=== PATIENT | male | born 1945 | race Caucasian/White ===

== ENCOUNTER 2019-06-29 16:16 | Outpatient (CLI) | payer MEDICARE, SELFPAY ==
--- NOTE | ~2019-06-29 | XR_ITS ---
EXAMINATION: XR abdomen/kub 1V EXAM DATE: 06/29/2019 16:44 INDICATION: Flank pain. TECHNIQUE: Frontal projection of the upper abdomen, frontal projection lower abdomen/pelvis for inter pretation. Comparison is made to prior examination from 10/07/2018. FINDINGS: Previously seen right nephrolithiasis no longer present. No suspicious soft tissue calcifi cations identified. Laparotomy wires. Expected amount of colonic stool, no obstruction. Chronic right hip avascular necrosis. IMPRESSION: No suspicious calcifications. Chronic right hip avascular necrosis. Reviewed, dictated and finalized at location A. IMPRESSION: No suspicious calcifications. Chronic right hip avascular necrosis .
--- NOTE | ~2019-06-29 | CT_ITS ---
EXAMINATION: CT abdomen pelvis wo con EXAM DATE: 06/29/2019 16:43 INDICATION: Right flank pain. Kidney stone. TECHNIQUE: Spiral CT of the abdomen and pelvis was performed without contrast. Axial, coronal and sag ittal images were reviewed. The dose-length product (DLP) for this examination was 1020.76 mGy-cm. The exposure was tailored according to patient size (auto mA exposure control), and iterative reconst ruction (ASIR) was used as additional dose reduction technique. Comparison is made to prior examinati on from 04/01/2018. FINDINGS: There is no nephrolithiasis or hydronephrosis, previously seen right nephrolithiasis has re solved. The prostate is unremarkable. The bladder is unremarkable. The liver, spleen, adrenal gla nds and pancreas are unremarkable. The gallbladder is contracted but otherwise unremarkable. There is no retroperitoneal or pelvic lymphadenopathy. There is mild scattered arteriosclerotic disease. Small right inguinal fat-containing hernia. Laparotomy wires. The appendix is not positively visualized. There is no pericecal inflammatory change to suggest appe ndicitis. The stomach and small bowel are unremarkable. There is expected amount of colonic stool. No free intraperitoneal gas. The heart is normal in size. There are no pericardial or pleural e ffusions. Again there are several nodules at the lung bases measuring up to 5 mm, likely postinfecti ous. There is mild emphysema. There is partial collapse of the right femoral head, most likely seque la from chronic avascular necrosis. This is unchanged compared to prior study. IMPRESSION: 1. No nephrolithiasis, hydronephrosis or acute intra-abdominal findings. 2. Chronic right hip avascular necrosis. 3. Small right inguinal hernia. Reviewed, dictated and finalized at location A.
== END 2019-06-29 16:17 | disposition home or self-care (01) ==
PROVIDERS: PCP Family Medicine; Visit Provider Urology
DX: M87.851 Other osteonecrosis, right femur (principal); K40.90 Unilateral inguinal hernia, without obstruction or gangrene, not specified as recurrent
CPT/HCPCS: 74018; 74176

== ENCOUNTER 2020-05-22 09:04 | Outpatient (CLI) | payer MEDICARE, SELFPAY ==
--- NOTE | 2020-06-01 13:06 | WPDHOMESLEEP ---
Sleep Study - Home Unattended Ordering Provider: Mohit aKt MD Interpreting Provider: Katey Mcintosh MD Home Sleep Study Type: Apnea Link Air Height: 1.88 m Weight: 134.717 kg Body Mass Index: 38.1 Neck Circumference (inches): 17.5 Reason for Sleep Study Patient does not indicate that he has a problem. Sleep History Naif Hale is a 74 year old man who indicates that he does not have any problems with his sleep. He answered all the questions in the negative except for that he has pain at night and waking up feeling stiff due to collapsed vertebrae. The office visit on 04/05/[address] Kat indicates that the patient has a history of DAWSON with a CPAP device that is 15 years old. A sleep study at this lab 05/18/2000 showed an apnea-hypopnea index of 54.4 with desaturation to 58%. A CPAP titration on 07/21/2020 showed an optimal pressure of 12 cm water pressure. At the time, he had a life long history of snoring with some hypersomnolence. He has gained 15 lb since the last visit with his doctor. He has a variable bedtime. He falls asleep within 10 minutes to 2 hours. He typically wakes 1 time at night. He does not have a fixed wake time. He sleeps anywhere between 8 and 12 hours. He has anxiety, depression, history of atrial fibrillation with a prior ablation now in sinus rhythm, has been treated with carvedilol and apixaban, hyperlipidemia, chronic back pain. FORMERLY [facility] Past Medical History Medical History Abnormal fasting glucose (04/03/20) BMI 37.0-37.9, adult Chronic anxiety Chronic depression Chronic serous otitis media of right ear Chronic sinusitis Eczema Hypogonadism male Vitamin B12 deficiency anemia Vitamin D deficiency, unspecified Family History Family History Mother Patient's mother is , Onset Age: 92 Father Family history of cardiovascular disease, Onset Age: 57 Social History Social History (Updated 04/05/20 @ 10:44 by Deisy Ledezma MA) Smoking status: Former smoker Tobacco type: cigarettes and cigars Alcohol intake: current Substance use: never Substance use type: does not use Medications Home Medications Medication Instructions Recorded Confirmed Type apixaban 5 mg tablet 5 mg PO BID 01/25/19 04/05/20 History carvedilol 12.5 mg tablet 12.5 mg PO Q12H 01/25/19 04/05/20 History simvastatin 40 mg tablet 40 mg PO DAILY 01/25/19 04/05/20 History cholecalciferol (vitamin D3) 125 5,000 unit PO DAILY 04/04/19 04/05/20 History mcg (5,000 unit) tablet alprazolam 0.25 mg tablet 0.25 mg PO TID PRN #90 tablet 11/29/19 04/05/20 Rx escitalopram oxalate 20 mg tablet 20 mg PO DAILY #30 tablet 11/29/19 04/05/20 Rx tramadol 50 mg tablet 50 mg PO Q6H PRN #90 tablet 02/27/20 04/05/20 Rx Sleep Procedure This test was performed using 4 channel monitoring including respiratory effort channel, snoring channel, heart rate channel, and oxygen saturation channel. This study was scored using CMS guidelines. Sleep Architecture Not applicable for home sleep test. Respiratory Analysis The recording time is 11:00 a.m. 1 minutes. The evaluation time is 10 hours 49 minutes. The apnea-hypopnea index is 38. He had 331 apneas. He had 305 obstructive apneas, 92% of the total, 12 central apneas, 4% of the total and 14 mixed apneas, 4% of the total. He had 55 hypopneas. He had no evidence of Erasto-Lyons respirations. his pulse oximeter came office finger during the night however there was enough data from the nasal transducer that the results are adequate to interpret. Oximetry Data The oxygen desaturation index is 28. Lowest desaturation is 80%. Mean saturation is below average, 90%. He had 126 desaturations and spent 75 minutes or 28% of the study below 88% saturation. Snoring Profile Snoring was significant with 2742 episodes. Cardiac Pr
[2020-06-01 13:21] VITALS: BMI 38.1
== END 2020-05-22 09:05 | disposition home or self-care (01) ==
LOC: ANHCSM 09:05
PROVIDERS: PCP Family Medicine; Visit Provider Family Medicine
DX: G47.33 Obstructive sleep apnea (adult) (pediatric) (principal)
CPT/HCPCS: 95806

== ENCOUNTER → 2020-06-19 09:48 | Outpatient (CLI) | payer MEDICARE, SELFPAY ==
--- NOTE | ~2020-06-19 | MR_ITS ---
EXAMINATION: MR lumbar spine wo con DATE: 06/19/2020 10:30 INDICATION: Low back pain. Lumbar radiculopathy. TECHNIQUE: Magnetic resonance imaging (MRI) of the lumbar spine was performed without intravenous con trast. Sequences included sagittal T2-weighted FSE, sagittal T2-weighted FS FSE, sagittal T1-weighted FSE, and axial T2-weighted FSE. COMPARISON: Lumbar spine MRI 12/04/2018 FINDINGS: There is 12 degrees dextroscoliosis of thoracic spine. There is mild chronic anterior wedgi ng of T12 and L1 vertebral bodies. There is moderately decreased disc height at L1-L2 and L4-L5 with endplate remodeling. The distal spinal cord signal intensity is normal. The conus medullaris is at L1 . The following disc levels are specifically discussed: L1-L2: The disc is bulging and has an annular fissure. There is moderate right and mild left facet daron int osteoarthritis. There is mild bilateral neural foraminal stenosis. There is mild central canal st enosis. L2-L3: There is a right foraminal protrusion. There is moderate bilateral facet joint osteoarthritis. There is mild right neural foraminal stenosis. There is no central canal stenosis. L3-L4: The disc is bulging. There is severe right and moderate left facet joint osteoarthritis. There is mild bilateral neural foraminal stenosis. There is no central canal stenosis. L4-L5: The disc is bulging and has an annular fissure. There is severe right and moderate left facet joint osteoarthritis. There is moderate bilateral neural foraminal stenosis. There is mild central ca nal stenosis. L5-S1: The disc is bulging. There is severe bilateral facet joint osteoarthritis. There is mild bilat eral neural foraminal stenosis. There is mild central canal stenosis. IMPRESSION: 1. Moderate lumbar spondylosis, stable from 12/04/2018. Reviewed, dictated and finalized at location A.
== END ==
PROVIDERS: Visit Provider Nurse Practitioner Family
DX: M54.16 Radiculopathy, lumbar region (principal); M47.816 Spondylosis without myelopathy or radiculopathy, lumbar region
CPT/HCPCS: 72148

== ENCOUNTER 2020-08-15 12:24 | Observation (INO) | payer MEDICARE, SELFPAY ==
[2020-08-15] VITALS (26 sets, daily range): BP systolic 115–141; BP diastolic 64–102; PULSE 82–148; RESP 12–22; TEMP 36.2–36.8; O2SAT 92–99
--- NOTE | ~2020-08-15 | XR_ITS ---
EXAMINATION: XR chest 1V portable INDICATION: Chest pain and tachycardia TECHNIQUE: Portable AP chest at 1305 hours COMPARISON: 09/10/2015 FINDINGS: There are minimal opacities of the lung bases. No pleural effusion or pneumothorax is ident ified. The cardiomediastinal silhouette is normal. The visualized osseous structures are unremarkable . IMPRESSION: 1. Patchy opacities of the lung bases, consistent with atelectasis versus pneumonia versus pulmonary edema. Reviewed, dictated and finalized at location A. IMPRESSION: 1. Patchy opacities of the lung bases, consistent with atelectasis versus pneum onia versus pulmonary edema.
--- NOTE | 2020-08-15 12:38 | ECG_ITS ---
Measurements Intervals [place] Rate: 147 P: HI: 0 QRS: -11 QRSD: 111 T: 56 QT: 307 QTc: 480 Interpretive Statements ATRIAL FLUTTER/TACHYCARDIA WITH RAPID VENTRICULAR RESPONSE INTRAVENTRICULAR CONDUCTION DELAY BORDERLINE R WAVE PROGRESSION, ANTERIOR LEADS ABNORMAL ECG Electronically Signed On 08-15-2020 13:06:19 CDT by Joss Cast D.O.
[2020-08-15 12:55] LABS: Basophils Percent Auto 0.5 % (0.2-1.2); Eosinophils Absolute Auto 0.2 K/mm3 (0-0.3); Eosinophils Percent Auto 2.3 % (0-4.4); Hematocrit 48.3 % (42.0-52.0); Hemoglobin 15.9 g/dL (14.0-18.0); Immature Granulocyte Absolute 0.01 K/mm3 (0.00-0.031); Immature Granulocyte Percent A 0.1 % (0-0.5); Lymphocytes Absolute Auto 3.15 K/mm3 (0.9-3.2); Lymphocytes Percent Auto 38.5 % (18.3-44.2); Mean Corpuscular HGB Conc 32.9 g/dl (32-36); Mean Corpuscular Hemoglobin 32.2 pg (26-34); Mean Corpuscular Volume 97.8 fl (80-100); Mean Platelet Volume 9.7 fl (7.4-10.4); Monocytes Absolute Auto 0.6 K/mm3 (0.1-0.6); Monocytes Percent Auto 7.7 % (2.6-8.5); Neutrophils Absolute Auto 4.2 K/mm3 (1.3-6.7); Neutrophils Percent Auto 50.9 % (45.5-73.1); Platelet Count Result 183 k/mm3 (150-375); Red Blood Count 4.94 M/mm3 (4.6-6.20); Red Cell Distribution Width 13.3 % (11.5-14.5); White Blood Count 8.2 K/mm3 (4.5-10.0)
[2020-08-15] MEDS: dilTIAZem HCl INJ 25 MG/5 ML VIAL 10 MG IV PUSH (12:57)
--- NOTE | 2020-08-15 13:01 | ED.ARRPALP ---
HPI - Arrhythmia/Palpitations General Chief Complaint: Arrhythmia/Palpitations Stated Complaint: irregular heart beat x 1 month Time Seen by Provider: 08/15/20 12:45 Source: RN notes reviewed History of Present Illness HPI narrative: Patient presents to emergency department from home for heart racing. Patient states he has history of atrial fibrillation with an ablation 5 years ago with no problems with arrhythmia since that time states over the past month he has felt like his heart has been racing and progressively getting to the point where it made him more fatigued and tired he states it never seems to cease and always feels like it is racing states he is on Eliquis which he has been taking and is followed by Dr. Shah he denies any fevers or chills, chest pain, shortness of breath or any other symptoms Related Data Home Medications Medication Instructions Recorded Confirmed apixaban 5 mg tablet 5 mg PO BID 01/25/19 04/05/20 carvedilol 12.5 mg tablet 12.5 mg PO Q12H 01/25/19 04/05/20 simvastatin 40 mg tablet 40 mg PO DAILY 01/25/19 04/05/20 cholecalciferol (vitamin D3) 125 5,000 unit PO DAILY 04/04/19 04/05/20 mcg (5,000 unit) tablet Allergies Allergy/AdvReac Type Severity Reaction Status Date / Time No Known Allergies Allergy Verified 08/08/13 16:43 Review of Systems Review of Systems: Narrative: Gen.: Denies fevers or chills ENT: Denies congestion Respiratory: Denies shortness of breath or cough CV: See HPI GI: Denies abdominal pain nausea, emesis or diarrhea Musculoskeletal: Denies back pain or muscle pain Neuro: Denies numbness, tingling, weakness or focal weakness Skin: Denies rash Except as documented, all other systems reviewed and negative PMFSH Past Medical History Medical History Abnormal fasting glucose (04/03/20) BMI 37.0-37.9, adult Chronic anxiety Chronic depression Chronic serous otitis media of right ear Chronic sinusitis Eczema Hypogonadism male Vitamin B12 deficiency anemia Vitamin D deficiency, unspecified Family History Family History Mother Patient's mother is , Onset Age: 92 Father Family history of cardiovascular disease, Onset Age: 57 Social History Social History Smoking status: Former smoker Tobacco type: cigarettes and cigars Alcohol intake: current Substance use: never Substance use type: does not use Exam Narrative: Exam Narrative: APPEARANCE: No acute distress, nontoxic, resting in bed EYES: EOMI HEENT: Normocephalic, atraumatic, OMM RESPIRATORY: No respiratory distress Clear to auscultation bilaterally with no rhonchi wheezing or rales. CARDIOVASCULAR: Tachycardic and regular without murmurs rubs or gallops. ABDOMINAL: Soft, nontender, nondistended, no rebound or guarding MUSCULOSKELETAl: Moves all extremities. No clubbing, cyanosis or edema. NEURO: Awake and alert. Following commands, speech normal, no focal deficits SKIN:: Warm, dry. No rashes lesions or abrasions PSYCHIATRIC: Normal affect/mood, Course Course Emergency Course: Patient initially given Cardizem 10 mg with improvement of his heart rate down into the 90s : Discussed with PIETER Adler for Dr. Shah presentation work-up agrees with consult we discussed additional medications for the patient at this time with the patient's heart rate improved we will hold any additional medications including Cardizem drip until cardiology evaluates on floor Discussed with PIETER Gold for Dr. Palomo presentation work-up agrees with admission at this time Patient's heart rate back up into the 140s called and discussed with PIETER Adler again for cardiology at this time will start patient on Cardizem drip Discussed with patient and family results of workup and diagnosis. Discussed need for admission. Patient and fam
[2020-08-15 13:05] LABS: Anion Gap 8 mmol/L (8-16); Blood Urea Nitrogen 8 mg/dL (9-20); Calcium 9.7 mg/dL (8.4-10.2); Carbon Dioxide 28 mmol/L (22-30); Chloride 104 mmol/L (98-107); Estimated CRCL calculation 103 ml/min; Estimated Glomerular Filt Rate > 60; Glucose 125 mg/dL (75-110); Potassium 4.2 mmol/L (3.4-5.0); Sodium 140 mmol/L (137-145)
--- NOTE | 2020-08-15 13:06 | ECG_ITS ---
Measurements Intervals [place] Rate: 97 P: 93 TX: 191 QRS: -18 QRSD: 112 T: 53 QT: 372 QTc: 473 Interpretive Statements ATRIAL FLUTTER/TACHYCARDIA WITH VARIABLE BLOCK LOW QRS VOLTAGE IN PRECORDIAL LEADS INCOMPLETE RIGHT BUNDLE BRANCH BLOCK CANNOT RULE OUT SEPTAL INFARCT, AGE INDETERMINATE BASELINE ARTIFACT- II, III, AVR, AVL, AVF, V1, V3-V6 ABNORMAL ECG Electronically Signed On 08-15-2020 13:24:42 CDT by Joss Cast D.O.
[2020-08-15 13:13] LABS: INR 1.3; Partial Thromboplastin Time 32.6 SECONDS (22.3-36.8); Prothrombin Time 16.6 Seconds (11.1-14.7)
--- NOTE | 2020-08-15 13:22 | PC.NURSE ---
chem, Jessica, added BNP [phone]
--- NOTE | 2020-08-15 13:24 | PC.NURSE ---
Per Dr. Beltran, do not start Cardizem at this time.
[2020-08-15 13:25] LABS: Troponin I 0.037 ng/mL (0.000-0.034)
[2020-08-15 13:44] LABS: NT Pro B Type Natriuretic Pept 468 pg/mL (5-100)
--- NOTE | 2020-08-15 13:44 | PC.NURSE ---
Per EDP via verbal order readback do not give diltiazem drip.
--- NOTE | 2020-08-15 14:32 | PC.NURSE ---
Pt. heart rate in the 140s. A fib with RVR. ERP aware. ERP stated to start the diltiazem drip at 5mg/hr via verbal order readback.
--- NOTE | 2020-08-15 15:59 | ADMGEN ---
This patient, Naif Hale, was admitted to IMU Room 231-01 on 08/15/20 at 1516. Patient/family oriented to hospital policies and general routines including ID bracelet, bed and alarms, visiting hours, pain management, procedures, bathroom and other care routines, personal items, smoking policy, room service/diet, and visiting hours. Information on how to activate the Rapid Response Team has been discussed. Patient/Family are encouraged to report perceived risks to care and to ask questions if they do not understand what they are told or what they should do.
--- NOTE | 2020-08-15 16:38 | PM.CNCAR ---
Assessment and Plan Assessment and plan (1) Atrial flutter with rapid ventricular response: Code(s): I48.92 - Unspecified atrial flutter Status: Acute Assessment and Plan: History of chronic AFib status post ablation about 5 years ago per patient's report. Has been in normal sinus rhythm until about 1 month ago. At this time he developed significant fatigue and began noticing palpitations. On presentation to the emergency department he was found to be in atrial fibrillation/aflutter with a rapid ventricular response at a rate in the 140s to 150s. He was placed on a diltiazem drip at that time. Currently, telemetry demonstrated atrial fibrillation and his rate remains uncontrolled on diltiazem. 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 If he does not convert to sinus rhythm or his rate is not adequately controlled we may attempt a DC cardioversion tomorrow. (2) Elevated troponin: Code(s): R77.8 - Other specified abnormalities of plasma proteins Status: Acute Assessment and Plan: Drawn the emergency department 0.037, 0.037, 3rd level is pending. Likely elevated due to his tachycardia. He does not have any chest pain an EKG does not show any evidence of ST or T-wave abnormalities. (3) CAD (coronary artery disease): Code(s): I25.10 - Atherosclerotic heart disease of [place] coronary artery without angina pectoris Status: Acute Assessment and Plan: History of CAD. According to the patient he had a left heart catheterization back in 2009 but did not have an intervention at that time. He takes aspirin and a statin at home. This should be continued here in the hospital. History of Present Illness History of Present Illness Consult date/time: 08/15/20 16:38 Requesting physician: Luiz Trujillo DO Consult reason: Other (Atrial fibrillation with RVR) Reason For Visit: abib with rvr,elevated troponin Narrative: This is a 74-year-old patient with a history of atrial fibrillation and I am seeing at the request of Dr. Trujillo for our opinion regarding management of his atrial fibrillation with rapid ventricular response. Patient has a long history of atrial fibrillation for which he received an ablation about 5 years ago. Since that time he states he has not had any issues with atrial fibrillation until about 1 month ago. At that time he says that he started feeling very tired and weak and also felt palpitations from time to time. He tells me that in recent months he has been drinking more alcohol and thinks that this may have triggered his arrhythmia. He says that in an attempt to control his heart rate he increased his metoprolol back to the dose that he was taking previous to his ablation. This did not improve his symptoms so he presented to the emergency department today for evaluation. In the emergency department he was found to be in atrial fibrillation with rapid ventricular response with a rate in the 140s to 150s. He was given a 1 time dose of diltiazem which apparently slowed his rate down to the 90s but he quickly reverted back to AFib with a rate in the 140s. Currently, he remains in atrial fibrillation was heart rate of 138 beats per minute. He denies any chest pain, shortness of breath, palpitations. According to the patient he has been systemically anticoagulated with apixaban for many years and he does not report missing any doses recently. Review of Systems Review of Systems: All systems reviewed & are unremarkable except as noted in HPI and below Constitutional: Constitutional: Reports fatigue and Reports lethargy Eyes: Eyes: Denies blurry vision and Denies change in vision ENT: Reports Normal hearing present and Denies epistaxis Cardiovascular: Cardiovascular: Denies chest pain, Denies pedal edema, Denies leg edema, Denies lightheadedness and Denies palpitations Re
[2020-08-15 16:43] LABS: Troponin I 0.037 ng/mL (0.000-0.034)
[2020-08-15] MEDS: AMIODARONE 360 MG/D5W 200 ML 360 MG/200 ML BAG 33.33 MG IV CONT (16:51)
[2020-08-15] MEDS: AMIODARONE 150 MG/D5W 100 ML 150 MG/100 ML BAG 600 MG IV CONT (16:51)
--- NOTE | 2020-08-15 17:05 | PM.IMHP ---
H&P: HPI History of Present Illness Date/Time: 08/15/20 17:05 Chief Complaint: Racing heart Narrative: 74yo male with history of CAD and AFib presents to the ED with complaints of racing heart. Patient has a history of CAD with an [place] in 2009. He had left heart catheterization on 11/23/09 and was noted to have significant disease with 100% proximal RCA occlusion and mild-moderate mid LAD and midcircumflex disease. No intervention was performed at that time. He did have a Lexiscan stress test in 2016 that was negative. He has not had his COVID vaccine. He also has atrial fibrillation and underwent multiple episodes of cardioversion in the past. He ultimately went to [facility] and was under the care of the physician. He underwent ablation about 5 years ago. He has remained on Eliquis all this time. He has not had any recurrent problems up until a about 1 month ago when he developed palpitations and racing heart. This wakes him up at night. He states that this is continuous. He has been extremely fatigued and with dyspnea on exertion. No chest pain. No cough. He is on Coreg 12.5 mg b.i.d. which he increased to 25 mg b.i.d. 3-4 days ago without benefit. He does have DAWSON has been on CPAP for 25 years. He had a recent sleep study in April showing that his sleep apnea was poorly controlled. Patient was provided with a new machine about a month ago and has been using this every night. Patient denies any fever or chills. He was dizzy this morning that he describes as lightheadedness. He does have balance problems but this is chronic related to his chronic low back pain; he also has numbness in his toes since starting simvastatin many many years ago. He has chronic right hearing loss. No odynophagia or dysphagia. No nausea or vomiting. No dysuria or hematuria. He does state that ?I'm in a severe depression? related to financial issues. He collects social security but states that he is ?running out of money for skilled nursing?. He has been drinking 2-3 bottles of wine a night. He has also been using marijuana but found this too expensive so no longer buys this. Patient denies any suicidal or homicidal ideation. 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 He presented to the emergency room for evaluation earlier today. In the Emergency room he was hemodynamically stable except for a heart rate of 148. He was given aspirin. Was given diltiazem IV push. He was started on amiodarone drip since patient has been compliant with his Eliquis. He was admitted to IMU for further care. He feels better this evening. 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 APAP at 5-16 cm of water pressure 06/04/2020 Vitamin B12 deficiency anemia Vitamin D deficiency, unspecified Surgical History Surgical History History of bowel resection 19 years old History of cardiac radiofrequency ablation 5 years ago for AFib Family History Family History Mother Patient's mother is , Onset Age: 92 Acute myocardial infarction Skin cancer Father Family history of cardiovascular disease, Onset Age: 57 Acute myocardial infarction Social History Social History (Reviewed
[2020-08-15] MEDS: chlordiazePOXIDE (*CRX) 10 MG CAPSULE PO ×2 (18:51→23:41)
[2020-08-15] MEDS: APIXABAN 5 MG TABLET PO (18:51)
[2020-08-15] MEDS: FOLIC ACID 1 MG/0.2 ML INJ IV PUSH (18:51)
[2020-08-15] MEDS: THIAMINE HCL 200 MG/2 ML VIAL 100 MG IV PUSH (18:51)
[2020-08-15 19:41] LABS: Troponin I 0.039 ng/mL (0.000-0.034)
[2020-08-15] MEDS: carvediloL 25 MG TABLET PO (21:07)
[2020-08-15] MEDS: SIMVASTATIN 20 MG TABLET 40 MG PO (21:07)
[2020-08-15] MEDS: AMIODARONE 360 MG/D5W 200 ML 360 MG/200 ML BAG 16.67 MG IV CONT (23:22)
[2020-08-16] VITALS (17 sets, daily range): BP systolic 120–160; BP diastolic 85–117; PULSE 52–137; RESP 13–20; TEMP 35.9–36.6; O2SAT 95–99
--- NOTE | 2020-08-16 | ECHO_ITS ---
Patient Info Name: Naif Hale Age: 74 years : 1945 Gender: Male Ht: 72 in Wt: 288 lbs BSA: 2.63 m2 HR: 56 bpm BP: 140 / 85 mmHg Heart Rhythm: Sinus Rhythm Technical Quality: Poor Exam Date: 08/16/2020 11:29 AM Exam Location: [facility] Pulmonary Exam Room: 231 Patient Status: Inpatient Admit Date: 08/15/2020 Staff Ordering Physician: Lauro Palomo MD Geologist: Iliana Orona RDCS Attending Provider: Lauro Palomo MD Exam Type: CA echo dop color flow w con Study Info Indications - afib s/p cardioversion Complete two-dimensional, color flow and Doppler transthoracic echocardiogram is performed with contrast to opacify the left ventricle and to improve the deliniation of the left ventricle endocardial borders. Reason for Poor Study: patient body habitus Summary 1. Left ventricular chamber dimension is mildly enlarged. 2. Left ventricular systolic function is mildly reduced, estimated at 45-50%. 3. Definity contrast injected to improve visualization. 4. Left atrial chamber dimension is mildly enlarged. 5. There is trace aortic valve regurgitation. 6. Aortic valve is sclerotic with moderately reduced leaflet separation. 7. Doppler interrogation suggests mild functional aortic stenosis. 8. Sinus rhythm. Left Ventricle Left ventricular chamber dimension is mildly enlarged. Left ventricular systolic function is mildly reduced, estimated at 45-50%. The left ventricular diastolic function is grade I diastolic dysfunction. Definity contrast injected to improve visualization. Right Ventricle Right ventricular chamber dimension is normal. Left Atria Left atrial chamber dimension is mildly enlarged. Right Atria Right atrial chamber dimension is normal. Aortic Valve The aortic valve is trileaflet. There is moderate aortic valve sclerosis. There is trace aortic valve regurgitation. Aortic valve is sclerotic with moderately reduced leaflet separation. Doppler interrogation suggests mild functional aortic stenosis. Pulmonic Valve The pulmonic valve is not well visualized. Mitral Valve The mitral valve has normal leaflets. Tricuspid Valve The tricuspid valve leaflets are normal. Pericardium/Pleural The pericardium appears normal. Aorta The aortic root size at the sinus of Valsalva is normal. Left Ventricular Outflow Tract Name Value Normal LVOT 2D LVOT Diameter 2.07 cm LVOT Doppler LVOT Peak Gradient 4 mmHg LVOT Mean Gradient 2 mmHg LVOT VTI 21.77 cm LVOT VTI/AV VTI Ratio 0.59 LVOT Stroke Volume 73.03 ml LVOT CO 14.62 l/min LVOT CI 5.56 L/min/m2 Pulmonic Valve Name Value Normal PV Doppler PV Peak G
--- NOTE | 2020-08-16 | ECG_ITS ---
Measurements Intervals [place] Rate: 52 P: 74 AL: 202 QRS: 17 QRSD: 98 T: 47 QT: 443 QTc: 414 Interpretive Statements SINUS BRADYCARDIA BORDERLINE AV CONDUCTION DELAY BORDERLINE R WAVE PROGRESSION, ANTERIOR LEADS BASELINE ARTIFACT- I, II, III, AVR, AVL, AVF, V1 BORDERLINE ECG Electronically Signed On 08-16-2020 10:27:11 CDT by Joss Cast D.O.
[2020-08-16 05:14] LABS: Basophils Absolute Auto 0.1 K/mm3 (0.0-0.1); Basophils Percent Auto 0.5 % (0.2-1.2); Eosinophils Absolute Auto 0.3 K/mm3 (0-0.3); Eosinophils Percent Auto 2.6 % (0-4.4); Hematocrit 44.7 % (42.0-52.0); Hemoglobin 15.2 g/dL (14.0-18.0); Immature Granulocyte Absolute 0.02 K/mm3 (0.00-0.031); Immature Granulocyte Percent A 0.2 % (0-0.5); Lymphocytes Absolute Auto 4.25 K/mm3 (0.9-3.2); Lymphocytes Percent Auto 42.8 % (18.3-44.2); Mean Corpuscular Hemoglobin 32.7 pg (26-34); Mean Corpuscular Volume 96.1 fl (80-100); Mean Platelet Volume 10.1 fl (7.4-10.4); Monocytes Absolute Auto 0.8 K/mm3 (0.1-0.6); Monocytes Percent Auto 7.8 % (2.6-8.5); Neutrophils Absolute Auto 4.6 K/mm3 (1.3-6.7); Neutrophils Percent Auto 46.1 % (45.5-73.1); Platelet Count Result 166 k/mm3 (150-375); Red Blood Count 4.65 M/mm3 (4.6-6.20); Red Cell Distribution Width 13.1 % (11.5-14.5); White Blood Count 9.9 K/mm3 (4.5-10.0)
[2020-08-16 05:27] LABS: Alanine Aminotransferase 26 U/L (4-50); Albumin Level 4.1 g/dL (3.5-5.1); Alkaline Phosphatase 31 U/L (38-126); Anion Gap 5 mmol/L (8-16); Aspartate Amino Transferase 31 U/L (17-59); Bilirubin,Total 0.6 mg/dL (0.2-1.3); Blood Urea Nitrogen 10 mg/dL (9-20); Calcium 9.2 mg/dL (8.4-10.2); Carbon Dioxide 32 mmol/L (22-30); Chloride 103 mmol/L (98-107); Cholesterol 135 mg/dL (0-200); Estimated CRCL calculation 84 ml/min; Estimated Glomerular Filt Rate > 60; Glucose 102 mg/dL (75-110); HDL Direct 55 mg/dL; Magnesium 1.7 mg/dL (1.6-2.3); Sodium 140 mmol/L (137-145); Triglycerides 138 mg/dL (<150)
[2020-08-16 05:38] LABS: LDL Cholesterol Direct 57 mg/dL
[2020-08-16] MEDS: chlordiazePOXIDE (*CRX) 10 MG CAPSULE PO ×2 (05:57→12:15)
--- NOTE | 2020-08-16 09:17 | WPDMODSED ---
Moderate Sedation Note-Pt Data Patient Data Diagnosis: Atrial fibrillation Present Complaint: Atrial fibrillation Procedure to be performed/Plan: 1. Moderate sedation 2. Elective cardioversion Allergies Allergy/AdvReac Type Severity Reaction Status Date / Time No Known Allergies Allergy Verified 08/15/20 15:27 Home Medications Medication Instructions Recorded Confirmed Type apixaban 5 mg tablet 5 mg PO BID 01/25/19 08/15/20 History simvastatin 40 mg tablet 40 mg PO HS 01/25/19 08/15/20 History cholecalciferol (vitamin D3) 125 5,000 unit PO DAILY 04/04/19 08/15/20 History mcg (5,000 unit) tablet carvedilol 25 mg PO Q12H 08/15/20 08/15/20 History coenzyme Q10 [Co Q-10] 200 mg PO DAILY 08/15/20 08/15/20 History escitalopram oxalate [Lexapro] 20 mg PO HS 08/15/20 08/15/20 History tramadol 50 mg PO Q6H PRN 08/15/20 08/15/20 History Current Medications: Active Medications Apixaban (Apixaban 5 Mg Tablet) 5 mg PO BID [facility] Last Admin: 08/15/20 18:51 Dose: 5 mg Documented by: Aspirin (Aspirin 81 Mg Chewable Tablet) 81 mg PO DAILY@0800 [facility] Carvedilol (Carvedilol 25 Mg Tablet) 25 mg PO Q12HR [facility] Last Admin: 08/15/20 21:07 Dose: 25 mg Documented by: Chlordiazepoxide HCl (Chlordiazepoxide (*Crx) 10 Mg Capsule) 10 mg PO Q6HR [facility] Last Admin: 08/16/20 05:57 Dose: 10 mg Documented by: Folic Acid (Folic Acid 1 Mg Tablet) 1 mg PO DAILY [facility] Amiodarone HCl/Dextrose (Nexterone 360 Mg/D5w 200 Ml) 360 mg in 200 mls @ 16.667 mls/hr IV CONT .Q12H [facility] Last Admin: 08/15/20 23:22 Dose: 0.5 mg/min, 16.67 mls/hr Documented by: Lorazepam (Lorazepam Inj (*Crx) 2 Mg/Ml Vial) 1 mg IV PUSH Q2H PRN PRN Reason: CIWA >10 Simvastatin (Simvastatin 20 Mg Tablet) 40 mg PO [facility] Last Admin: 08/15/20 21:07 Dose: 40 mg Documented by: Thiamine HCl (Thiamine Hcl 100 Mg Tablet) 100 mg PO QAM JOCELYNE Tramadol HCl (Tramadol Hcl (*Crx) 50 Mg Tablet) 50 mg PO Q6H PRN PRN Reason: Pain (Scale Score 4-6) Vitamin D (Cholecalciferol 1,000 Units Tablet) 5,000 units PO DAILY JOCELYNE Sedation/Anesthesia: No previous sedation/anesthesia problems (including family history). 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 APAP at 5-16 cm of water pressure 06/04/2020 Vitamin B12 deficiency anemia Vitamin D deficiency, unspecified Surgical History Surgical History History of bowel resection 19 years old History of cardiac radiofrequency ablation 5 years ago for AFib Family History Family History Mother Patient's mother is , Onset Age: 92 Acute myocardial infarction Skin cancer Father Family history of cardiovascular disease, Onset Age: 57 Acute myocardial infarction Social History Social History Social History: Alcohol use as mentioned above. No drug use except occasional marijuana use. Quit tobacco at age 28 after smoking 2 packs a day for 10 years. He lives alone. Full code. He nominated his step daughter Adriane Navarro to be the individual who would make medical decisions for him if he is not able. Smoking packs per day: 2 Smoking cigarettes per day: 40.0 Years smoked: 11 Smoking pack-years: 22.00 Smoking status: Former smoker Tobacco type: cigarettes and cigars Alcohol intake: current Drinks per week: 70 Substance use: current Substance use type: marijuana Spiritual care
--- NOTE | 2020-08-16 09:33 | P.PCNCVR_ITS ---
Cardioversion Cardioversion Date of procedure: 08/16/20 Procedure: 1. Electrical cardioversion 2. Moderate sedation Pre-op diagnosis: Atrial fibrillation Post-op diagnosis: same Indications: Atrial fibrillation Description of procedure: After discussing risks, benefits alternatives of the procedure patient agreeable via verbal and written informed consent. Risks discussed included skin irritation or burn, shocking into more problematic heart rhythm, stroke, adverse reaction to anesthesia. After serial blood pressure assessments, pulse oxygenation and telemetry monitoring was established, time- out was taken procedure started. Procedure start time 9:25 a.m. Procedure stop time 9:32 a.m. Medications used: 3 mg Versed and 75 mcg of fentanyl given in divided dosages Patient was monitored and medications were administered by Sruthi Rader RN Complications: None Blood loss: None Procedure: After adequate sedation the previously placed anterior and posterior defibrillator pads were used. Atrial fibrillation/flutter was confirmed and 200 joules of biphasic synchronized energy converted to sinus rhythm/sinus bradycardia with heart rate in 50s. Sedation: Versed and fentanyl as above Findings: Successful sabianist of sinus bradycardia using 200 joules synchronized biphasic energy Conclusion: 1. Moderate sedation 2. Successful inpatient elective cardioversion converting atrial fibrillation/flutter to sinus bradycardia using 200 joules of synchronized biphasic energy
--- NOTE | 2020-08-16 09:59 | SUR.OPER ---
Amiodarone gtt off at 0922 per verbal order from Dr. Sims prior to CV procedure.
[2020-08-16] MEDS: PERFLUTREN LIPID MICROSPHERES 1.5 ML VIAL DILUTED TO 10 ML TOTAL VOLUME IV PUSH (11:55)
[2020-08-16] MEDS: APIXABAN 5 MG TABLET PO (12:14)
[2020-08-16] MEDS: carvediloL 25 MG TABLET PO (12:14)
[2020-08-16] MEDS: CHOLECALCIFEROL 1,000 UNITS TABLET 5000 UNITS PO (12:15)
[2020-08-16] MEDS: FOLIC ACID 1 MG TABLET PO (12:15)
[2020-08-16] MEDS: THIAMINE HCL 100 MG TABLET PO (12:15)
--- NOTE | 2020-08-16 15:00 | PM.DS ---
DS: Admitting Diagnosis Admitting Diagnosis Admitting Diagnosis: Palpitations DS: Discharge Diagnosis Discharge Diagnosis (1) Atrial flutter with rapid ventricular response: Code(s): I48.92 - Unspecified atrial flutter Status: Acute Assessment and Plan: Patient presents with 1 month history palpitations and found to have atrial fibrillation with RVR. Noted on telemetry and confirmed by EKG. EKG reviewed personally. Chest x-ray relatively clear. Some atelectasis noted in the bases. Chest x-ray also reviewed personally. Suspect patient back in AFib because of alcoholism. Cannot exclude ischemia although no symptoms point in that direction. TSH normal. Patient was started diltiazem but switched to amiodarone per Cardiology. We resumed his Coreg at the 25 mg b.i.d. dosing. We continued his Eliquis. Echo results pending. He underwent successful cardioversion on 08/16 with one shock at 200J. he maintained normal sinus. He was advised to stop drinking alcohol. (2) Elevated troponin: Code(s): R77.8 - Other specified abnormalities of plasma proteins Status: Acute Assessment and Plan: Troponins are mildly elevated at 0.039 and flat. Related to the persistent AFib with RVR. (3) Obstructive sleep apnea: Code(s): G47.33 - Obstructive sleep apnea (adult) (pediatric) Status: Acute Assessment and Plan: Patient with severe DAWSON on home sleep study 05/23/2020 with AHI 36 and desaturation to 80%. We continued autoPAP here. (4) CAD (coronary artery disease): Code(s): I25.10 - Atherosclerotic heart disease of cahto coronary artery without angina pectoris Status: Acute Assessment and Plan: Patient with a history of myocardial infarction and known coronary disease. Last stress test was normal in 2016. We continued his aspirin, beta-nevin and statin therapy. (5) Alcoholism: Code(s): F10.20 - Alcohol dependence, uncomplicated Status: Acute Assessment and Plan: Patient drinks 2-3 bottles of wine a day. He was educated about the benefits of abstain from alcohol use. Also educated that the alcohol could be contributing to his AFib. We started thiamine and folate. We scheduled low dose Librium. CIWA scores were 0. tire center manager provided information about AA. DS: Summary Hospital Course Reason for hospitalization: 74yo male with DAWSON, CAD and AFib here for palpitations. He was found to have atrial fibrillation with RVR. Please see H&P for details. Hospital Course: Please see above for details of hospital course. Status at Discharge Cognitive/behavioral status at discharge: Stable Time Spent with Patient Time attestation: Total time spent providing and/or coordinating discharge services: 35 minutes Time spent: Greater than 30 minutes Specific discharge activities: Discussed with cardiology. Patient Education. Exam Narrative: Exam Narrative: AF 96.6 120/85 60 18 99%ra Gen - NARD Chest - lungs are clear to auscultation bilaterally. CV - RRR S1/S2 Abd -soft. Nontender. Nondistended. Positive bowel sounds Ext - no pedal edema Psych - normal mood and affect. Patient is pleasant and cooperative. Skin - warm and dry. DS: Data Data Completed and Pending Labs on day of discharge: Labs from last 24 hours 08/16/20 08/16/20 08/16/20 04:50 04:50 04:50 WBC 9.9 RBC 4.65 Hgb 15.2 Hct 44.7 MCV 96.1 MCH 32.7 MCHC 34.0 RDW 13.1 Plt Count 166 MPV 10.1 Immature Gran % (Auto) 0.2 Neut % (Auto) 46.1 Lymph % (Auto) 42.8 Parke % (Auto) 7.8 Eos % (Auto) 2.6 Baso % (Auto) 0.5 Lymph # (Auto) 4.25 H Parke # (Auto) 0.8 H Eos # (Auto) 0.3 Baso # (Auto) 0.1 Abs Immat Gran (auto) 0.02 Absolute Neuts (auto) 4.6 Absolute Nucleated RBC 0.0 Nucleated RBC % 0.0 Sodium 140 Potassium 4.0 Chloride 103 Carbon Dioxide 32 H A
--- NOTE | 2020-08-21 10:19 | PC.NURSE ---
ECHO report faxed to Dr. Kat. Dr. Stacia leigh.
== END 2020-08-16 16:20 | disposition home or self-care (01) ==
LOC: ANHED 13:32 → ANHIMU 14:46
PROVIDERS: Emergency Medicine; Internal Medicine Cardiovascular Disease; Admitting Provider Internal Medicine; Emergency Provider Emergency Medicine; PCP Family Medicine; Visit Provider Internal Medicine
PROC: 5A2204Z Restoration of Cardiac Rhythm, Single (ICD-10-PCS; principal; 2020-08-16 09:00)
DX: I48.92 Unspecified atrial flutter (principal); R07.9 Chest pain, unspecified; R77.8 Other specified abnormalities of plasma proteins; I25.10 Atherosclerotic heart disease of native coronary artery without angina pectoris; Z87.891 Personal history of nicotine dependence; I25.2 Old myocardial infarction; G47.33 Obstructive sleep apnea (adult) (pediatric); R06.09 Other forms of dyspnea; F10.20 Alcohol dependence, uncomplicated; Z79.01 Long term (current) use of anticoagulants
CPT/HCPCS: 36415; 71045; 80048; 80053; 80061; 83735; 83880; 84443; 84484; 85025; 85610; 85730; 92960; 93005; 96365; 96366; 96367; 96375; 96376; 99285; A9270; C8929; G0378; J0282; J2250; J3010; J3411; J7040; Q9957

== ENCOUNTER 2021-05-28 16:06 | Inpatient (IN) | payer MEDICARE, SELFPAY ==
--- NOTE | ~2021-05-28 | XR_ITS ---
EXAMINATION: XR surgery orthopedic EXAM DATE: 05/30/2021 14:54 INDICATION: right IT nail . TECHNIQUE: Fluoroscopy used during XR surgery orthopedic performed by Dr. Kun Ferrell MD. Radi ologist was not present for the imaging or procedure. Total fluoroscopic time of 149 seconds. The D AP for this procedure was 1.35 mGym2. A total of 7 images sent to PACS from the exam. Correlation is made to right hip x-ray from 05/28. FINDINGS: Previously seen right hip intertrochanteric fracture has been internally fixed with a gamm a nail. Hardware is in expected position. Correlate with procedure note. IMPRESSION: Fluoroscopy used during right hip ORIF. Reviewed, dictated and finalized at location A.
--- NOTE | ~2021-05-28 | CT_ITS ---
EXAMINATION: CT hip RT wo con DATE: 05/28/2021 17:35 INDICATION: Fall. TECHNIQUE: Computed tomography (CT) of the right hip was performed without intravenous contrast. Auto mated exposure control and iterative reconstruction technique were employed. The dose-length product was 747.93 mGy-cm. COMPARISON: CT abdomen and pelvis 06/29/2019. FINDINGS: Limitations: None Bones: Nondisplaced right intertrochanteric proximal femoral fracture. No dislocation. Right hip join t space narrowing, with subchondral cyst formation, osteophytosis, and subchondral sclerosis. 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 Soft Tissues:Prostatomegaly with calcifications. Possible bladder outlet obstruction. Fat-containing right inguinal hernia. Fluid: Small right hip joint space effusion. No bursal fluid. IMPRESSION: Nondisplaced right hip intertrochanteric fracture. Chronic findings detailed above. Reviewed, dictated and finalized at location K. IMPRESSION: Nondisplaced right hip intertrochanteric fracture. Chronic findings detailed ab layne.
--- NOTE | ~2021-05-28 | XR_ITS ---
EXAMINATION: XR chest 1V portable Exam Date/Time: 05/28/2021 18:19 CDT CLINICAL HISTORY: Hip Fx HX A.FIB, SMOKER, ANXIETY Comparison: 08/15/2020. RESULT: Lines, tubes, and devices: None. Lungs and pleura: No focal consolidation, effusion, or pneumothorax. Diffuse reticular pattern and o bscuration of vascular margins, particularly in the upper lungs. Prominent upper lung pulmonary vesse ls. Cardiomediastinal silhouette: Stable cardiomediastinal silhouette. Other: No acute osseous or upper abdominal finding. IMPRESSION: Vascular congestion versus mild interstitial edema. Reviewed, dictated and finalized at location K.
--- NOTE | ~2021-05-28 | CT_ITS ---
EXAMINATION: CT lumbar spine wo con DATE: 05/28/2021 17:35 INDICATION: Fall landing on lower back. TECHNIQUE: Computed tomography (CT) of the lumbar spine was performed without intravenous contrast. A utomated exposure control and iterative reconstruction technique were employed. The dose-length produ ct was 1448.20 mGy-cm. COMPARISON: MR lumbar spine 06/19/2020, CT abdomen and pelvis 06/29/2019. FINDINGS: Limitations: None Bones: Normal lumbar lordosis. Physiologic wedge configuration at the thoracolumbar junction. No frac ture or dislocation. Multilevel degenerative disc disease. Multilevel facet arthropathy. No pars defe ct. No severe central canal or neural foraminal narrowing. Degenerative changes involving the SI join ts. Soft Tissues:The soft tissues appear within normal limits. No evidence of mass or fluid collection. IMPRESSION: No acute fracture or traumatic malalignment detected in the lumbar spine. Reviewed, dictated and finalized at location K.
--- NOTE | ~2021-05-28 | XR_ITS ---
EXAM: XR hip RT 2V w AP pelvis HISTORY: Fx COMPARISON: CT right hip, same date. FINDINGS: Osteopenia. Midline abdominal suture material. Mildly displaced right intertrochanteric fr acture. No other fractures detected. Bilateral hip joint space narrowing. Subchondral cyst formation and minimal collapse of the right femoral head. IMPRESSION: Mildly displaced right intertrochanteric hip fracture. Reviewed, dictated and finalized at location K.
[2021-05-28 16:09] VITALS: BP 182/82; PULSE 53; RESP 12; O2SAT 98
[2021-05-28] MEDS: KETOROLAC 15 MG/ML VIAL (*BKC) IV PUSH (16:25)
[2021-05-28] MEDS: MORPHINE SULFATE (*CRX) 4 MG/ML INJ IV PUSH (16:25)
--- NOTE | 2021-05-28 16:31 | ED.FALL ---
HPI - Fall General Chief Complaint: Fall Stated Complaint: ground level fall with loc, also c/o back pain Time Seen by Provider: 05/28/21 16:08 Source: patient and EMS Mode of arrival: EMS Limitations: no limitations History of Present Illness HPI Narrative: 75-year-old male presents emergency room by ambulance. He was at home when he tripped over a cord landing and injuring his back. He said severe pain to the lower back region. He states he already has had some significant back issues where he had intermittent pain to his right leg. Also complains of pain to his right hip at this time. Did not hit his head had no loss of consciousness. Denies any chest pain. Patient is screaming out in pain with any movement at this time. Related Data Home Medications Medication Instructions Recorded Confirmed apixaban 5 mg tablet 5 mg PO BID 01/25/19 10/10/20 simvastatin 40 mg tablet 40 mg PO HS 01/25/19 10/10/20 cholecalciferol (vitamin D3) 125 5,000 unit PO DAILY 04/04/19 10/10/20 mcg (5,000 unit) tablet coenzyme Q10 [Co Q-10] 200 mg PO DAILY 08/15/20 10/10/20 carvedilol 6.25 mg tablet 6.25 mg PO Q12H 10/10/20 10/10/20 lisinopril 2.5 mg tablet 2.5 mg PO DAILY 10/10/20 10/10/20 Allergies Allergy/AdvReac Type Severity Reaction Status Date / Time No Known Allergies Allergy Verified 05/28/21 16:13 Review of Systems Review of Systems: CONSTITUTIONAL: Denies fever, chills, or sweats. EYES: Denies visual changes, redness, or discharge. ENT: Denies rhinorrhea, congestion, sore throat, or otalgia. CARDIOVASCULAR: Denies chest pain, palpitations, or edema. RESPIRATORY: Denies cough or dyspnea. GASTROINTESTINAL: Denies abdominal pain, nausea, vomiting, or diarrhea. GENITOURINARY: Denies dysuria or hematuria. SKIN: Denies rash or itching. MUSCULOSKELETAL: History of some chronic back pain now is got acute low back pain. Complaining of pain rating down his right leg. NEUROLOGIC: Denies headache, numbness, or weakness. PSYCHIATRIC: Denies anxiety or depression. 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 APAP at 5-16 cm of water pressure 06/04/2020 Vitamin B12 deficiency anemia Vitamin D deficiency, unspecified Surgical History Surgical History History of bowel resection 19 years old History of cardiac radiofrequency ablation 5 years ago for AFib Family History Family History Mother Patient's mother is , Onset Age: 92 Acute myocardial infarction Skin cancer Father Family history of cardiovascular disease, Onset Age: 57 Acute myocardial infarction Social History Social History Social History: Alcohol use as mentioned above. No drug use except occasional marijuana use. Quit tobacco at age 28 after smoking 2 packs a day for 10 years. He lives alone. Full code. He nominated his step daughter Adriane Navarro to be the individual who would make medical decisions for him if he is not able. Smoking packs per day: 2 Smoking cigarettes per day: 40.0 Years smoked: 11 Smoking pack-years: 22.00 Smoking status: Former smoker Tobacco type: cigarettes and cigars Alcohol intake: current Drinks per week: 70 Alcohol use details: beer or wine Substance use: current Substance use type: marijuana Spiritual care concerns: No Exam Narrative: APPEARANCE: Well appearing,
[2021-05-28] MEDS: fentaNYL CITRATE INJ (*CRX) 100 MCG/2 ML VIAL 50 MCG IV PUSH (17:09)
--- NOTE | 2021-05-28 18:16 | ECG_ITS ---
Measurements Intervals [place] Rate: 63 P: 87 MN: 157 QRS: 31 QRSD: 116 T: 91 QT: 358 QTc: 367 Interpretive Statements SINUS RHYTHM MODERATE INTRAVENTRICULAR CONDUCTION DELAY [110+ ms QRS DURATION] NONSPECIFIC T-WAVE ABNORMALITY LOW VOLTAGE EKG COMPARED TO ECG 08/16/2020 09:36:18 SINUS BRADYCARDIA HAS RESOLVED Electronically Signed On 05-29-2021 14:17:56 CDT by Denice Costello M.D.
[2021-05-28 18:47] VITALS: BP 163/77; PULSE 72; RESP 18; O2SAT 97
[2021-05-28 18:51] LABS: Basophils Percent Auto 0.3 % (0.2-1.2); Eosinophils Absolute Auto 0.1 K/mm3 (0-0.3); Eosinophils Percent Auto 0.7 % (0-4.4); Hematocrit 45.1 % (42.0-52.0); Hemoglobin 15.3 g/dL (14.0-18.0); Immature Granulocyte Absolute 0.07 K/mm3 (0.00-0.031); Immature Granulocyte Percent A 0.5 % (0-0.5); Immature Platelet Fraction Pct 4.8 % (0.9-11.2); Lymphocytes Absolute Auto 2.49 K/mm3 (0.9-3.2); Mean Corpuscular HGB Conc 33.9 g/dl (32-36); Mean Corpuscular Volume 97.2 fl (80-100); Monocytes Absolute Auto 1.1 K/mm3 (0.1-0.6); Monocytes Percent Auto 8.2 % (2.6-8.5); Neutrophils Percent Auto 72.3 % (45.5-73.1); Platelet Count Result 155 k/mm3 (150-375); Red Blood Count 4.64 M/mm3 (4.6-6.20); Red Cell Distribution Width 12.9 % (11.5-14.5); White Blood Count 13.9 K/mm3 (4.5-10.0)
[2021-05-28 19:01] LABS: INR 1.3; Prothrombin Time 15.2 Seconds (11.1-14.7)
[2021-05-28 19:02] LABS: Partial Thromboplastin Time 32.6 SECONDS (22.3-36.8)
[2021-05-28 19:20] LABS: Add Urine Microscopic? NO; Appearance Urine Clear (Clear); Bilirubin Urine Negative (Negative); Blood Urine Negative (Negative); Color Urine Yellow (Yellow); Glucose Urine UA Negative (Negative); Ketones Urine Negative (Negative); Leukocyte Esterase Ur Negative LEU/UL (Negative); Nitrate Urine Negative (Negative); Protein Urine Negative (Negative); Specific Grav Ur 1.019 (1.001-1.035); Urobilinogen Urine Negative mg/dL (<2.0)
[2021-05-28 20:23] LABS: Alanine Aminotransferase 41 U/L (4-50); Albumin Level 4.1 g/dL (3.5-5.1); Alkaline Phosphatase 47 U/L (38-126); Anion Gap 7 mmol/L (8-16); Aspartate Amino Transferase 47 U/L (17-59); Bilirubin,Total 0.7 mg/dL (0.2-1.3); Blood Urea Nitrogen 13 mg/dL (9-20); Calcium 9.2 mg/dL (8.4-10.2); Carbon Dioxide 29 mmol/L (22-30); Chloride 102 mmol/L (98-107); Estimated Glomerular Filt Rate > 60; Glucose 124 mg/dL (65-110); Potassium 3.8 mmol/L (3.4-5.0); Sodium 138 mmol/L (137-145)
[2021-05-28 20:36] VITALS: PULSE 56; RESP 20; O2SAT 96
--- NOTE | 2021-05-28 20:50 | ADMGEN ---
This patient, Naif Hale, was admitted to [facility] Room 302-01. Patient/family oriented to hospital policies and general routines including ID bracelet, bed and alarms, visiting hours, pain management, procedures, bathroom and other care routines, personal items, smoking policy, room service/diet, and visiting hours. Information on how to activate the Rapid Response Team has been discussed. Patient/Family are encouraged to report perceived risks to care and to ask questions if they do not understand what they are told or what they should do.
--- NOTE | 2021-05-28 21:15 | PM.IMHP ---
H&P: HPI History of Present Illness Date/Time: 05/28/21 21:15 Chief Complaint: Trip and fall Narrative: 75-year-old male with past medical history of hypertension, hyperlipidemia, obstructive sleep apnea and paroxysmal atrial fibrillation who presented to the ER after having tripped and fell. The patient reports that he was walking down the singer in caught his foot on a cord. He have fell and landed onto his buttocks causing pain in his low back. He reports chronic low back pain due to history of bulging discs and degenerative disc disease. He reports that he had already been having increased low back pain for a week or so and the pain was radiating up his right leg when he would put weight on to his leg. When he caught his foot on the record he had to switch is weight to his right leg and subsequently fell. He attempted for about an hour to get up off the floor by himself but when he almost passed out while lifting himself up on the sink he laid back down and called for help with his cellphone. He reports he did not pass out or hit his head. He denies any chest pain or palpitations prior to his fall. He does have some dyspnea on exertion if he climbs a flight of stairs with some groceries. He occasionally has some lower extremity edema but no increased edema currently. He denies any orthopnea or paroxysmal nocturnal dyspnea he is faithful in wearing his auto titrating CPAP. He does report that he is quite depressed and has been for several years. He has been subsequently drinking too much alcohol. He drinks 2-3 bottles aligned 5/7 days a week. He reports that the only way he feels normal as if he drinks alcohol. He has had history of heavy alcohol use for his entire life. He wanted to talk to his primary care physician about how to cut back his alcohol consumption. He has not been on any antidepressants. He would be interested in antidepressants if recommended by his primary care doctor. He denies any suicidal or homicidal ideation. He reports that most of his depression is from the adjustment of being retired. 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 He reports that he is running out of money in his usp fund and cannot afford the up keep on his house. He states that he is going to loses how soon and this is causing more stress. Review of Systems Review of Systems: 12 systems were reviewed with pertinent positives and negatives per HPI. Except as documented in the HPI, all other systems were reviewed and are negative. 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 APAP at 5-16 cm of water pressure 06/04/2020 Systolic heart failure Echocardiogram 08/15/2020: Mildly reduced left ventricular systolic function EF 45-50, mild left ventricular enlargement, trace aortic valve regurgitation, sclerotic aortic valve with mildly reduced leaflet separation, mild functional aortic stenosis Vitamin B12 deficiency anemia Vitamin D deficiency, unspecified Surgical History Surgical History (Updated 05/29/21 @ 04:24 by Colleen Bowens DO) History of bowel resection 19 years old History of cardiac radiofrequency ablation 5 years ago for AFib Status post cataract extraction of both eyes with insertion of intraocular lens Family History Family History Mother Patient's mother is , Onset Age: 92 Acute myocardial infar
[2021-05-28 21:24] VITALS: BMI 39.9
[2021-05-28] MEDS: HYDROmorphone HCL INJ (*CRX) 1 MG/ML SYR 0.5 MG IV PUSH (21:25)
[2021-05-28 21:43] VITALS: BP 150/75; PULSE 54; RESP 16; TEMP 37.3; O2SAT 98
[2021-05-28 21:45] LABS: Ethanol < 10 mg/dL (<10)
[2021-05-28 23:27] VITALS: PULSE 87; RESP 24; O2SAT 94
[2021-05-29] VITALS (7 sets, daily range): BP systolic 140–176; BP diastolic 69–80; PULSE 56–81; RESP 16–19; TEMP 35.7–37.2; O2SAT 92–97
--- NOTE | 2021-05-29 | ECHO_ITS ---
Patient Info Name: Naif Hale Age: 75 years : 1945 Gender: Male Ht: 74 in Wt: 311 lbs BSA: 2.77 m2 HR: 54 bpm BP: 174 / 74 mmHg Heart Rhythm: Sinus Rhythm Technical Quality: Fair Exam Date: 05/29/2021 12:52 PM Exam Location: [facility] Patient Status: Inpatient Admit Date: 05/28/2021 Staff Ordering Physician: Kun Ferrell MD Shipping Weigher: Gabbi Snider RDCS Attending Provider: Liz Cuenca PA-C Referring Physician: Ghassan GRIFFIN; Exam Type: CA echo dop color flow w con Study Info Indications - HX AFIB, CARDIOMYOPATHY ALCOHOLISM Complete two-dimensional, color flow and Doppler transthoracic echocardiogram is performed with contrast to opacify the left ventricle and to improve the deliniation of the left ventricle endocardial borders. Contrast/Agitated Saline Contrast/Ag. Saline: Definity Amount: 2.00 ml Administered By: Gabbi Snider RDCS Existing IV Access: Yes IV Access Condition: patent with no signs of infiltration Summary 1. Left ventricle of normal size with mild concentric hypertrophy. Good systolic function of all segments with ejection fraction estimated to be 65%. No segmental wall motion abnormalities noted. Grade 2 diastolic dysfunction is present. Left ventricle not well visualized in all views. 2. Left atrial chamber dimension is moderately enlarged. 3. There is mild aortic valve stenosis with a peak velocity of 2.7 m/sec, mean gradient of 13 mmHg, and aortic valve area of 1.4 cm2. 4. No pulmonary hypertension, estimated pulmonary arterial systolic pressure is 20 mmHg. 5. Normal sinus rhythm. 6. Very technically difficult study. Definity echo contrast used. Left Ventricle Left ventricular chamber dimension is normal. Left ventricular systolic function is normal, estimated at 65-70%. There is mildly increased left ventricular wall thickness. Left ventricular septal wall motion is normal. The left ventricular diastolic function is grade II diastolic dysfunction. Right Ventricle Right ventricular chamber dimension is normal. Right ventricular systolic function is normal. Left Atria Left atrial chamber dimension is moderately enlarged. Right Atria Right atrial chamber dimension is normal. Aortic Valve The aortic valve is not well visualized. There is no aortic valve sclerosis. There is mild aortic valve stenosis with a peak velocity of 2.7 m/sec, mean gradient of 13 mmHg, and aortic valve area of 1.4 cm2. There is no aortic valve regurgitation. Pulmonic Valve The pulmonic valve is normal. There is no pulmonic valve stenosis. There is no pulmonic regurgitation. Mitral Valve The mitral valve has not well visualized. There is no mitral valve stenosis. There is no mitral valve regurgitation. Tricuspid Valve The tricuspid valve leaflets are not well visualized. There is no significant tricuspid valve stenosis. There is no tricuspid valve regurgitation. No pulmonary hypertension, estimated pulmonary arterial systolic pressure is 20 mmHg. Pericardium/Pleural The pericardium appears normal. There is no pericardial effusion. Inferior Vena Cava Not well visualized inferior vena cava with >50% collapse upon inspiration consistent with Empty right atrial pressure, 10 mmHg. Aorta The aortic root size at the sinus of Valsalva is normal. The prox ascending aorta size is normal. Left Ventricular Outflow Tract
[2021-05-29] MEDS: HYDROmorphone HCL INJ (*CRX) 1 MG/ML SYR 0.5 MG IV PUSH ×4 (01:19→14:11)
[2021-05-29] MEDS: traMADol HCL (*CRX) 50 MG TABLET PO ×4 (04:51→20:45)
[2021-05-29] MEDS: ACETAMINOPHEN 325 MG TABLET PO ×4 (04:52→20:44)
[2021-05-29 08:05] LABS: Basophils Absolute Auto 0.1 K/mm3 (0.0-0.1); Basophils Percent Auto 0.4 % (0.2-1.2); Eosinophils Absolute Auto 0.3 K/mm3 (0-0.3); Eosinophils Percent Auto 2.3 % (0-4.4); Hemoglobin 13.7 g/dL (14.0-18.0); Immature Granulocyte Absolute 0.03 K/mm3 (0.00-0.031); Immature Granulocyte Percent A 0.3 % (0-0.5); Immature Platelet Fraction Pct 4.5 % (0.9-11.2); Lymphocytes Absolute Auto 3.95 K/mm3 (0.9-3.2); Mean Corpuscular HGB Conc 33.4 g/dl (32-36); Mean Corpuscular Hemoglobin 32.5 pg (26-34); Mean Corpuscular Volume 97.4 fl (80-100); Monocytes Absolute Auto 1.1 K/mm3 (0.1-0.6); Monocytes Percent Auto 9.4 % (2.6-8.5); Neutrophils Absolute Auto 5.9 K/mm3 (1.3-6.7); Neutrophils Percent Auto 52.6 % (45.5-73.1); Platelet Count Result 134 k/mm3 (150-375); Red Blood Count 4.21 M/mm3 (4.6-6.20); Red Cell Distribution Width 12.9 % (11.5-14.5); White Blood Count 11.3 K/mm3 (4.5-10.0)
[2021-05-29 08:16] LABS: Alanine Aminotransferase 32 U/L (4-50); Albumin Level 3.7 g/dL (3.5-5.1); Alkaline Phosphatase 34 U/L (38-126); Anion Gap 6 mmol/L (8-16); Aspartate Amino Transferase 38 U/L (17-59); Bilirubin,Total 0.8 mg/dL (0.2-1.3); Blood Urea Nitrogen 14 mg/dL (9-20); Calcium 8.7 mg/dL (8.4-10.2); Carbon Dioxide 30 mmol/L (22-30); Chloride 99 mmol/L (98-107); Estimated CRCL calculation 106 ml/min; Estimated Glomerular Filt Rate > 60; Glucose 121 mg/dL (65-110); Potassium 3.6 mmol/L (3.4-5.0); Sodium 135 mmol/L (137-145)
[2021-05-29 08:18] LABS: INR 1.2
[2021-05-29] MEDS: carvediloL 6.25 MG TABLET PO ×2 (08:35→20:43)
[2021-05-29] MEDS: CHOLECALCIFEROL 1,000 UNITS TABLET 5000 UNITS PO (08:36)
[2021-05-29] MEDS: THIAMINE HCL 100 MG TABLET PO (08:36)
[2021-05-29] MEDS: ESCITALOPRAM OXALATE 10 MG TABLET 20 MG PO (08:36)
[2021-05-29] MEDS: lisinopriL 2.5 MG TABLET PO (08:36)
--- NOTE | 2021-05-29 11:49 | PM.CNOR ---
Assessment and Plan Additional Plan Patient is a 75-year-old gentleman was admitted with a mildly displaced right intertrochanteric hip fracture that extends inferior to the lesser trochanter. No significant comminution. This is a 2 part fracture. This occurred yesterday when he fell at his home he laid on the floor. He was brought to the emergency room where he had a CT scan of his back and his hip which showed the fracture. A CT scan of the hip also showed severe long-standing changes of avascular necrosis of the right femoral head. This is presumably result of his longstanding alcoholism. He drinks between 2 and 3 bottles of wine every single night. He has a long history of lower back pain into the buttock. He has had an MRI scan of his the lumbar spine and the recent 2 years which demonstrated mild spinal stenosis at multiple levels bulging discs. He has been receiving epidural steroid injections for pain management. Also he has intermittent pain more commonly lateral aspect was right hip and occasionally in the groin. This particularly occurs when he is bearing weight and twists on the hip and the pain can be severe. He is known for a long time that is right hip is not very trustworthy. He has never wanted to consider having it replaced. He has some significant financial troubles right now and believes that he is going to lose his house unless he can physically be there. He is going to discuss this with the case investigator to determine what sort of options might be available to put any proceedings on hold. He states he does not really have anyone that will help him. He is on Eliquis his last dose of 5 mg was yesterday morning at 9:00 a.m.. We will need to wait 48 hours off Eliquis before doing the surgery and his surgery has been scheduled for tomorrow at 1:00 a.m.. He has a history of atrial fibrillation that was corrected with an ablation procedure. He has been to this hospital in the past. He had a cardiology consultation last year and echocardiogram 10 months ago indication AFib status post cardioversion showed left ventricular chamber dimension mildly enlarged, left ventricular systolic function mildly reduced estimated at 45-50%. Trace aortic valve regurgitation aortic valve sclerotic changes with moderately reduced leaflet separation mild functional aortic stenosis in sinus rhythm. Other medical problems include vitamin-D deficiency obstructive sleep apnea chronic anxiety chronic depression. He smokes marijuana but gave up smoking many years ago. His INR was slightly elevated yesterday at 1.3 and today it is already normal at 1.2. Platelet count is mildly to reduced 134,000. I do not know if he has history of cirrhosis of the liver. His alkaline phosphatase was low at 34 AST and ALT normal total protein mildly reduced 6.0 and bilirubin normal at 0.8. He does have extreme obesity with BMI of 40 , 141 kg. His height is 1.88 m. On exam today is completely alert and oriented. His right leg is mildly externally rotated. He has episodes of severe pain causing him to yell out if he moves the right hip ever so slightly. He has a 2+ dorsalis pedis pulse palpable. The skin over his right lower extremity and hip looks normal. He reports numbness in the bottoms of the balls of both feet and toes he has had for the past 10 years. 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 Cystic changes within the superior femoral head. He has a mildly displaced 2 part right intertrochanteric hip fracture that medially extends below the lesser trochanter. The entire posterior inner trochanteric ridge is displaced with the head and neck fragment with these characteristics, head and neck total hip arthroplasty would be disadvantageous as the hip muscles would be attached to the broken fragments. I have recommended treating the fra
--- NOTE | 2021-05-29 12:08 | PM.IMPN ---
Progress Note: A&P Assessment and Plan (1) Intertrochanteric fracture of right femur: Qualifiers: Encounter type: initial encounter Fracture alignment: nondisplaced Fracture type: closed Qualified Code(s): S72.144A - Nondisplaced intertrochanteric fracture of right femur, initial encounter for closed fracture Code(s): S72.141A - Displaced intertrochanteric fracture of right femur, initial encounter for closed fracture Status: Acute Assessment and Plan: -Patient has acute intratrochanteric fracture of the right femur. -Patient is on bed rest. -Underwood catheter has been placed. -Will start pain medications with Dilaudid half a mg q.3 hours p.r.n. severe pain. -Will also resume patient's home chronic pain medications with tramadol. -Eliquis held, last dose 0900 on 05/28/21 -Orthopedic surgery has been consulted, plan is for surgery tomorrow afternoon (2) Obstructive sleep apnea: Code(s): G47.33 - Obstructive sleep apnea (adult) (pediatric) Status: Acute Assessment and Plan: -Patient's home auto titrating CPAP has been ordered. (3) Coronary artery disease involving [place] coronary artery of [place] heart without angina pectoris: Code(s): I25.10 - Atherosclerotic heart disease of [place] coronary artery without angina pectoris Status: Acute Assessment and Plan: -Patient has history of coronary artery disease and systolic congestive heart failure. -He is on chronic anticoagulation with Eliquis. His Eliquis be on hold in anticipation of ORIF of the hip. -The patient ideally will need to be off Eliquis for 48 hours prior to surgical procedure. -EKG was reviewed and demonstrated normal sinus rhythm. -Chest x-ray demonstrated evidence of pulmonary vascular congestion. -Cardiology has been consulted is for preop clearance. His regular handkerchief presser is Dr. Shah. (4) Chronic anticoagulation: Code(s): Z79.01 - custodial (current) use of anticoagulants Status: Acute Assessment and Plan: -on hold as above (5) Alcohol abuse: Code(s): F10.10 - Alcohol abuse, uncomplicated Status: Acute Assessment and Plan: -Patient has a history of heavy alcohol use. -He denies prior symptoms of alcohol withdrawal. -I discussed strategies in quitting alcohol use including decreasing his alcohol consumption by half a bottle wine a week until he is weaned off of alcohol use altogether. It has been over 24 hours since his last drink. Subjective Date/time seen: 05/29/21 12:08 Interval history: 75-year-old male with past medical history of hypertension, hyperlipidemia, obstructive sleep apnea and paroxysmal atrial fibrillation, admitted to the hospital for R femur fracture. Pt reports feeling incredibly depressed and overwhelmed. He states there is no way he can be away from his home for 6 weeks of recovery. He also states there is no one around here to help him. His pain is controlled currently with pain medication, but it shoots up to a 10 if he moves the leg at all. No cp, sob, palpitations. No N/V/D/abd pain. Review of Systems Review of Systems: All systems reviewed & are unremarkable except as noted in HPI and below Exam Narrative: PHYSICAL EXAM: WEIGHT 141.2 kg BMI 40 General: Obese, no acute distress HEENT: Several missing teeth, remainder dentition is fair, pupils are equal and reactive Respiratory: Clear to auscultation bilaterally, no increased work of breathing Cardiovascular: Regular rate, regular rhythm, 2/6 systolic murmur Gastrointestinal: Soft, nontender, nondistended, positive bowel sounds Skin: No pallor, non jaundice Musculoskeletal: Right lower extremity slightly shortened and externally rotated, trace edema at the ankles, distal extremity neurovascular intact Neurological: Alert and oriented, speech is clear, no facial asymmetry Psychiatric: Verbalized depression, no suicid
[2021-05-29] MEDS: PERFLUTREN LIPID MICROSPHERES 1.5 ML VIAL DILUTED TO 10 ML TOTAL VOLUME IV PUSH (12:49)
--- NOTE | 2021-05-29 18:39 | PM.CNCAR ---
Assessment and Plan Assessment and plan (1) Coronary artery disease involving [place] coronary artery of [place] heart without angina pectoris: Code(s): I25.10 - Atherosclerotic heart disease of [place] coronary artery without angina pectoris Status: Acute Assessment and Plan: History of [place] and chronic total occlusion of the right coronary artery 2009. No typical angina EKG without ischemic changes Echo pending Though chest x-ray suggested CHF/pulmonary vascular congestion, patient does not have symptoms or signs of CHF. Stable for upcoming surgery Continue simvastatin, carvedilol (2) Encounter for pre-operative cardiovascular clearance: Code(s): Z01.810 - Encounter for preprocedural cardiovascular examination Status: Acute Assessment and Plan: Patient appears stable for his upcoming orthopedic surgery. No further cardiac evaluation needed at this time. Mildly increased risk due to his multiple comorbidities. (3) Paroxysmal atrial flutter: Code(s): I48.92 - Unspecified atrial flutter Status: Acute Assessment and Plan: Long history of paroxysmal atrial flutter and atrial fibrillation, history of a flutter ablation, has required cardioversions intermittently the last being in 2019. Currently in sinus rhythm Will follow; physiologic stressors such as surgery may provoke recurrence Eliquis has been held for his orthopedic surgery planned for tomorrow afternoon. (4) Paroxysmal atrial fibrillation: Code(s): I48.0 - Paroxysmal atrial fibrillation Status: Acute Assessment and Plan: Currently in sinus rhythm (5) Chronic anticoagulation: Code(s): Z79.01 - assisted (current) use of anticoagulants Status: Acute Assessment and Plan: Eliquis on hold. (6) Alcohol abuse: Code(s): F10.10 - Alcohol abuse, uncomplicated Status: Acute Assessment and Plan: Heavy alcohol abuse, may develop withdrawal symptoms (7) Intertrochanteric fracture of right femur: Qualifiers: Encounter type: initial encounter Fracture alignment: nondisplaced Fracture type: closed Qualified Code(s): S72.144A - Nondisplaced intertrochanteric fracture of right femur, initial encounter for closed fracture Code(s): S72.141A - Displaced intertrochanteric fracture of right femur, initial encounter for closed fracture Status: Acute Assessment and Plan: ORIF tomorrow, with Dr. Ferrell. History of Present Illness History of Present Illness Consult date/time: 05/29/21 18:39 Consult reason: Other Reason For Visit: Right Hip Fx Narrative: Naif Hale is a 75-year-old male whom we were asked to see by the ER physician Dr. Doran for advice and opinion regarding his perioperative risk. He fell and has a femur fracture. He has history of CAD and PAF. History of alcohol abuse and psychosocial stressors. The patient has a history of paroxysmal atrial fibrillation status post a flutter ablation around 2013? and has had cardioversions in the past, the most recent being cardioversion by Dr. Sims in July 2020. Clinically he has maintained sinus rhythm on carvedilol and Eliquis, last dose 9:00 a.m. yesterday. He also has a history of CAD with a chronic total occlusion of the RCA which fills via collaterals (DE cand cath by Dr. Shah in 2009). pt was last seen in our office in September 2020 he maintained sinus rhythm and was doing well. Pt slipped and fell, and fractured his right femur. The plan is to go to ORIF tomorrow at 1:00 p.m. with Ghassan. He has had no further episodes of atrial fibrillation. He does not think he has had any heart trouble. He has migratory aches across his chest, and some discomfort of the left posterior shoulder times which come and go at random, but no typical exertional angina. He does have some [place] hauling in groceries and a little edema at times. States his blood pressure is controll
[2021-05-29] MEDS: SIMVASTATIN 20 MG TABLET 40 MG PO (20:43)
[2021-05-30] VITALS (24 sets, daily range): BP systolic 124–167; BP diastolic 58–99; PULSE 50–97; RESP 14–21; TEMP 36–37.6; O2SAT 88–100
[2021-05-30] MEDS: traMADol HCL (*CRX) 50 MG TABLET PO ×2 (01:24→10:04)
[2021-05-30] MEDS: ACETAMINOPHEN 325 MG TABLET PO ×2 (01:24→10:05)
[2021-05-30 05:52] LABS: Basophils Percent Auto 0.3 % (0.2-1.2); Eosinophils Absolute Auto 0.4 K/mm3 (0-0.3); Eosinophils Percent Auto 3.7 % (0-4.4); Hematocrit 40.1 % (42.0-52.0); Hemoglobin 13.8 g/dL (14.0-18.0); Immature Granulocyte Absolute 0.03 K/mm3 (0.00-0.031); Immature Granulocyte Percent A 0.3 % (0-0.5); Immature Platelet Fraction Pct 4.8 % (0.9-11.2); Lymphocytes Absolute Auto 3.42 K/mm3 (0.9-3.2); Lymphocytes Percent Auto 34.1 % (18.3-44.2); Mean Corpuscular HGB Conc 34.4 g/dl (32-36); Mean Corpuscular Hemoglobin 32.7 pg (26-34); Mean Platelet Volume 10.4 fl (7.4-10.4); Monocytes Percent Auto 10.2 % (2.6-8.5); Neutrophils Absolute Auto 5.2 K/mm3 (1.3-6.7); Neutrophils Percent Auto 51.4 % (45.5-73.1); Platelet Count Result 121 k/mm3 (150-375); Red Blood Count 4.22 M/mm3 (4.6-6.20); Red Cell Distribution Width 12.9 % (11.5-14.5)
[2021-05-30 06:02] LABS: Alanine Aminotransferase 26 U/L (4-50); Albumin Level 3.8 g/dL (3.5-5.1); Alkaline Phosphatase 33 U/L (38-126); Anion Gap 7 mmol/L (8-16); Aspartate Amino Transferase 33 U/L (17-59); Bilirubin,Total 0.9 mg/dL (0.2-1.3); Blood Urea Nitrogen 10 mg/dL (9-20); Calcium 8.5 mg/dL (8.4-10.2); Carbon Dioxide 29 mmol/L (22-30); Chloride 100 mmol/L (98-107); Estimated CRCL calculation 106 ml/min; Estimated Glomerular Filt Rate > 60; Glucose 109 mg/dL (65-110); Potassium 3.7 mmol/L (3.4-5.0); Sodium 136 mmol/L (137-145)
[2021-05-30 08:11] LABS: Vitamin D 25 Hydroxy 63.6 ng/mL
[2021-05-30] MEDS: carvediloL 6.25 MG TABLET PO ×2 (10:00→20:54)
[2021-05-30] MEDS: ESCITALOPRAM OXALATE 10 MG TABLET 20 MG PO (10:02)
[2021-05-30] MEDS: lisinopriL 2.5 MG TABLET PO (10:02)
[2021-05-30] MEDS: CHOLECALCIFEROL 1,000 UNITS TABLET 5000 UNITS PO (10:02)
[2021-05-30] MEDS: THIAMINE HCL 100 MG TABLET PO (10:03)
[2021-05-30] MEDS: LACTATED RINGERS 1,000 ML 30 ML IV CONT (11:50)
[2021-05-30] MEDS: TRANEXAMIC ACID 1,000MG/ISO100 1,000 MG/100 ML BAG 200 MG IVPB (12:00)
--- NOTE | 2021-05-30 12:37 | PM.IMPN ---
Progress Note: A&P Assessment and Plan (1) Intertrochanteric fracture of right femur: Qualifiers: Encounter type: initial encounter Fracture alignment: nondisplaced Fracture type: closed Qualified Code(s): S72.144A - Nondisplaced intertrochanteric fracture of right femur, initial encounter for closed fracture Code(s): S72.141A - Displaced intertrochanteric fracture of right femur, initial encounter for closed fracture Status: Acute Assessment and Plan: -Patient has acute intratrochanteric fracture of the right femur. -bed rest. -Underwood catheter has been placed. -Will start pain medications with Dilaudid half a mg q.3 hours p.r.n. severe pain. -Will also resume patient's home chronic pain medications with tramadol. -Eliquis held, last dose 0900 on 05/28/21 -Orthopedic surgery has been consulted, surgery today (2) Obstructive sleep apnea: Code(s): G47.33 - Obstructive sleep apnea (adult) (pediatric) Status: Acute Assessment and Plan: -Patient's home auto titrating CPAP has been ordered. (3) Coronary artery disease involving [place] coronary artery of [place] heart without angina pectoris: Code(s): I25.10 - Atherosclerotic heart disease of [place] coronary artery without angina pectoris Status: Acute Assessment and Plan: -Patient has history of coronary artery disease and systolic congestive heart failure. -He is on chronic anticoagulation with Eliquis. His Eliquis be on hold in anticipation of ORIF of the hip. -The patient ideally will need to be off Eliquis for 48 hours prior to surgical procedure. -EKG was reviewed and demonstrated normal sinus rhythm. -Chest x-ray demonstrated evidence of pulmonary vascular congestion. -Cardiology has been consulted for preop clearance. His regular administrative services coordinator is Dr. Shah. (4) Chronic anticoagulation: Code(s): Z79.01 - snf (current) use of anticoagulants Status: Acute Assessment and Plan: -on hold as above (5) Alcohol abuse: Code(s): F10.10 - Alcohol abuse, uncomplicated Status: Acute Assessment and Plan: -Patient has a history of heavy alcohol use. -He denies prior symptoms of alcohol withdrawal. -I discussed strategies in quitting alcohol use including decreasing his alcohol consumption by half a bottle wine a week until he is weaned off of alcohol use altogether. It has been over 24 hours since his last drink. Subjective Date/time seen: 05/30/21 12:00 Interval history: 75-year-old male with past medical history of hypertension, hyperlipidemia, obstructive sleep apnea and paroxysmal atrial fibrillation, admitted to the hospital for R femur fracture. Pt was getting rolled out to surgery when I evaluated him today. He was c/o 4/10 hip pain which became 10/10 w/ motion. no cp/sob. no other complaints. Review of Systems Review of Systems: All systems reviewed & are unremarkable except as noted in HPI and below Exam Narrative: PHYSICAL EXAM: WEIGHT 141.2 kg BMI 40 General: Obese, no acute distress HEENT: Several missing teeth, remainder dentition is fair, pupils are equal and reactive Respiratory: Clear to auscultation bilaterally, no increased work of breathing Cardiovascular: Regular rate, regular rhythm, 2/6 systolic murmur Gastrointestinal: Soft, nontender, nondistended, positive bowel sounds Skin: No pallor, non jaundice Musculoskeletal: Right lower extremity slightly shortened and externally rotated, trace edema at the ankles, distal extremity neurovascular intact Neurological: Alert and oriented, speech is clear, no facial asymmetry Psychiatric: Verbalized depression, no suicidal homicidal ideation, judgment insight intact : Underwood catheter in place Hematologic/lymphatic: No petechiae, no bruising Objective Data Vital Signs Vital Signs: Vital Signs - 24 hr 05/29/21 14:00 05/29/21 16:04 04/0
--- NOTE | 2021-05-30 12:42 | PM.PNCARD ---
Progress Note: A&P Assessment and Plan (1) Coronary artery disease involving [place] coronary artery of [place] heart without angina pectoris: Code(s): I25.10 - Atherosclerotic heart disease of [place] coronary artery without angina pectoris Status: Acute Assessment and Plan: History of [place] and chronic total occlusion of the right coronary artery 2009. No typical angina EKG without ischemic changes Echo pending Though chest x-ray suggested CHF/pulmonary vascular congestion, patient does not have symptoms or signs of CHF. Stable for upcoming surgery Continue simvastatin, carvedilol (2) Encounter for pre-operative cardiovascular clearance: Code(s): Z01.810 - Encounter for preprocedural cardiovascular examination Status: Acute Assessment and Plan: Patient appears stable for his upcoming orthopedic surgery. No further cardiac evaluation needed at this time. Mildly increased risk due to his multiple comorbidities. (3) Paroxysmal atrial flutter: Code(s): I48.92 - Unspecified atrial flutter Status: Acute Assessment and Plan: Long history of paroxysmal atrial flutter and atrial fibrillation, history of a flutter ablation, has required cardioversions intermittently the last being in 2019. Currently in sinus rhythm Will follow; physiologic stressors such as surgery may provoke recurrence Eliquis has been held for his orthopedic surgery planned for tomorrow afternoon. (4) Paroxysmal atrial fibrillation: Code(s): I48.0 - Paroxysmal atrial fibrillation Status: Acute Assessment and Plan: Currently in sinus rhythm (5) Chronic anticoagulation: Code(s): Z79.01 - steel hanger (current) use of anticoagulants Status: Acute Assessment and Plan: Eliquis on hold. (6) Alcohol abuse: Code(s): F10.10 - Alcohol abuse, uncomplicated Status: Acute Assessment and Plan: Heavy alcohol abuse, may develop withdrawal symptoms (7) Intertrochanteric fracture of right femur: Qualifiers: Encounter type: initial encounter Fracture alignment: nondisplaced Fracture type: closed Qualified Code(s): S72.144A - Nondisplaced intertrochanteric fracture of right femur, initial encounter for closed fracture Code(s): S72.141A - Displaced intertrochanteric fracture of right femur, initial encounter for closed fracture Status: Acute Subjective Date/time seen: 05/30/21 12:42 Interval history: 75-year-old male with past medical history of hypertension, hyperlipidemia, obstructive sleep apnea and paroxysmal atrial fibrillation, admitted to the hospital for R femur fracture. Pt was getting rolled out to surgery when I evaluated him today. He was c/o 4/10 hip pain which became 10/10 w/ motion. no cp/sob. no other complaints. Date of service 05/30/2021: Review of Systems Constitutional: Constitutional: Reports no additional constitutional complaints and Reports difficulty sleeping (Due to pain from his fracture) Eyes: Eyes: Reports no additional eye complaints ENT: Denies dysphagia and Denies epistaxis Cardiovascular: Cardiovascular: Denies chest pain, Reports pedal edema, Reports leg edema, Denies lightheadedness, Denies palpitations and Reports dyspnea on exertion Respiratory: Respiratory: Denies chest congestion, Denies cough and Reports dyspnea on exertion Gastrointestinal: Gastrointestinal: Denies abdominal pain, Denies hematochezia and Denies dysphagia Genitourinary: Genitourinary: Denies hematuria Musculoskeletal: Musculoskeletal: Reports arthralgias Integumentary/Breasts: Skin/Breast: Denies rash Neurologic: Reports system reviewed and no additional complaints, except as documented Psychiatric: Psychiatric: Reports anxiety and Reports depression Endocrine: Endocrine: Denies palpitations Exam Const: General: comfortable and no acute distress HENMT: General nose exam: no epistaxis Mouth: Yes m
--- NOTE | 2021-05-30 12:53 | WPDANESEPPF ---
Anes - Initial Pre Proc Eval Procedure: Operation Date: 05/30/21 13:00 Proposed Procedures p Intertrochanteric Nail Right Hip - Kun Ferrell MD Date/Time: 05/30/21 12:53 Surgeon: Liz Cuenca PA-C Pre Op Diagnosis: Right Hip Fx Patient Data Age: 75 Gender: M Height: 1.88 m Weight: 141.2 kg Last Vital Signs Temp 37.2 C 05/30/21 11:54 Pulse 57 L 05/30/21 11:54 Resp 18 05/30/21 11:54 BP 167/64 H 05/30/21 11:54 Pulse Ox 96 05/30/21 11:54 Allergies Allergy/AdvReac Type Severity Reaction Status Date / Time No Known Allergies Allergy Verified 05/28/21 16:13 Home Medications Medication Instructions Recorded Confirmed Type apixaban 5 mg tablet 5 mg PO BID 01/25/19 05/28/21 History simvastatin 40 mg tablet 40 mg PO HS 01/25/19 05/28/21 History cholecalciferol (vitamin D3) 125 5,000 unit PO DAILY 04/04/19 05/28/21 History mcg (5,000 unit) tablet coenzyme Q10 [Co Q-10] 400 mg PO DAILY 08/15/20 05/28/21 History thiamine HCl (vitamin B1) [Vitamin 100 mg PO QAM #30 tablet 08/16/20 05/28/21 Rx B-1] carvedilol 6.25 mg tablet 2.5 mg PO Q12H 10/10/20 05/28/21 History lisinopril 2.5 mg tablet 2.5 mg PO DAILY 10/10/20 05/28/21 History escitalopram oxalate 20 mg tablet 20 mg PO DAILY #30 tablet 11/12/20 05/28/21 Rx tramadol 50 mg tablet 50 mg PO Q6H PRN #90 tablet 05/21/21 05/28/21 Rx cyanocobalamin (vitamin B-12) 100 mcg PO DAILY 05/28/21 05/28/21 History [Vitamin B-12] Laboratory Tests 05/30/21 05/30/21 05/30/21 05:24 05:24 07:18 WBC 10.0 K/mm3 K/mm3 (4.5-10.0) RBC 4.22 M/mm3 L M/mm3 (4.6-6.20) Hgb 13.8 g/dL L g/dL (14.0-18.0) Hct 40.1 % L % (42.0-52.0) MCV 95.0 fl fl (80-100) MCH 32.7 pg pg (26-34) MCHC 34.4 g/dl g/dl (32-36) RDW 12.9 % % (11.5-14.5) Plt Count 121 k/mm3 L k/mm3 (150-375) MPV 10.4 fl fl (7.4-10.4) Immature Gran % (Auto) 0.3 % % (0-0.5) Neut % (Auto) 51.4 % % (45.5-73.1) Lymph % (Auto) 34.1 % % (18.3-44.2) [place] % (Auto) 10.2 % H % (2.6-8.5) Eos % (Auto) 3.7 % % (0-4.4) Baso % (Auto) 0.3 % % (0.2-1.2) Lymph # (Auto) 3.42 K/mm3 H K/mm3 (0.9-3.2) [place] # (Auto) 1.0 K/mm3 H K/mm3 (0.1-0.6) Eos # (Auto) 0.4 K/mm3 H K/mm3 (0-0.3) Baso # (Auto) 0.0 K/mm3 K/mm3 (0.0-0.1) Abs Immat Gran (auto) 0.03 K/mm3 K/mm3 (0.00-0.031) Absolute Neuts (auto) 5.2 K/mm3 K/mm3 (1.3-6.7) Absolute Nucleated RBC 0.0 K/mm3 K/mm3 (0.0-0.012) Nucleated RBC % 0.0 % % (0.0-0.2) % Immature Plt Fraction 4.8 % % (0.9-11.2) Sodium 136 mmol/L L mmol/L (137-145) Potassium 3.7 mmol/L mmol/L (3.4-5.0) Chloride 100 mmol/L mmol/L (98-107) Carbon Dioxide 29 mmol/L mmol/L (22-30) Anion Gap 7 mmol/L L mmol/L (8-16) BUN 10 mg/dL mg/dL (9-20) Creatinine 0.80 mg/dL mg/dL (0.7-1.3) Estim Creat Clear Calc 106 ml/min ml/min Estimated GFR > 60 (59 - ) Glucose 109 mg/dL mg/dL (65-110) Calcium 8.5 mg/dL mg/dL (8.4-10.2) Total Bilirubin 0.9 mg/dL mg/dL (0.2-1.3) AST 33 U/L U/L (17-59) ALT 26 U/L U/L (4-50) Alkaline Phosphatase 33 U/L L U/L (38-126) Total Protein 6.0 g/dL L g/dL (6.3-8.2) Albumin 3.8 g/dL g/dL (3.5-5.1) Vitamin D 25-Hydroxy 63.6 ng/mL ng/mL Patient hx anesthesia problems: none Family hx anesthesia problems: none Results Review: All pre-operative results and documents have been reviewed as part of the pre-operative evaluation. [facility] Past Medical History Medical History Abnormal fasting glucose (04/03/20) Alcoholism Atrial fibrillation
--- NOTE | 2021-05-30 12:54 | WPDHPUPDATE1 ---
History and Physical Update Update Date/Time: 05/30/21 12:54 History and Physical has been reviewed, including an updated exam of the patient. There are NO changes in the patient's condition. Risks, benefits, and alternatives have been discussed and questions answered. Patient agrees to proceed with procedure.
[2021-05-30] MEDS: ceFAZolin 3 GM/D5W 100 ML 100 ML IVPB (13:04)
--- NOTE | 2021-05-30 14:45 | W.PM.PROC2 ---
Procedure Note - Detailed Date of Procedure 05/30/21 Pre-op Diagnosis Right Hip Fx Post-op Diagnosis Same Procedure Performed Open reduction internal fixation right intertrochanteric hip fracture. Surgeon Kun Ferrell MD Scientist Propagator [email or web address] Anesthesia General Description of Procedure Patient was brought to the operating room and general anesthesia was administered. The right thigh was carefully scrubbed with a chlorhexidine cloth as well as the hip area. He was carefully transferred to the fracture table and the right foot secured in the boot the left hip flexed and abducted out of the way. The leg was placed at neutral rotation and mild longitudinal traction reduced the fracture anatomically. The right hip was prepped draped usual fashion. A 2-1/2 inch incision was made in the proximal aspect of the lateral hip area and guide alberto inserted through the tip of the greater trochanter position and alignment confirmed on AP and lateral fluoroscopic views. Starter Reamer was used to make an entrance hole long guide alberto inserted down the canal. The canal was reamed to 13 mm. The proximal femur to 16 mm. A 39 cm by 11 mm x 120 5 degree angle trans trochanteric intramedullary alberto, Arthrex was inserted with manual pressure to the appropriate level. A guide pin was inserted low in the femoral head on the AP view and in the perfect center on the lateral view. And anti rotation screw was placed just superior to this 15 mm shorter. The lag screw track was drilled and we inserted a 100 mm lag screw leaving the tip about 10 mm from subchondral bone. 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 The screw was locked to the alberto and we removed the dynamization pin. Under fluoro we could see that we had good lateral cortical integrity through which the lag screw and anti rotation screw traversed and therefore I did not feel that distal interlocking was indicated. Wounds were irrigated with antibiotic solution closed with 2-0 subcutaneous Vicryl and glue EBL was 100 cc. He received 3 g of Ancef weight based vancomycin 1 g of tranexamic acid preoperatively. Implants Arthrex Troch nail long Estimated Blood Loss 100 Drains No Packing No Pathology None sent Complications No immediate complications Condition Stable Disposition PACU
--- NOTE | 2021-05-30 15:03 | PCCCNOTE ---
On 05/30/21, the student, [Ana Leslie], provided care and completed [facility] documentation on this patient. I have reviewed the student's documentation and agree with the findings.
[2021-05-30] MEDS: fentaNYL CITRATE INJ (*CRX) 100 MCG/2 ML VIAL 25 MCG IV PUSH ×6 (15:17→15:59)
[2021-05-30] MEDS: SODIUM CHLORIDE 0.9% IV 1,000 ML 125 ML IV CONT (17:04)
[2021-05-30] MEDS: oxyCODONE HCL (*CRX) 5 MG TAB IR PO ×2 (17:04→21:01)
[2021-05-30] MEDS: SENNA/DOCUSATE SODIUM TABLET 2 TAB PO (17:05)
[2021-05-30] MEDS: ACETAMINOPHEN 500 MG TABLET 1000 MG PO ×2 (18:18→23:33)
[2021-05-30] MEDS: FAMOTIDINE 20 MG TABLET PO (20:54)
[2021-05-30] MEDS: SIMVASTATIN 20 MG TABLET 40 MG PO (20:54)
[2021-05-31] VITALS (12 sets, daily range): BP systolic 125–157; BP diastolic 60–77; PULSE 56–69; RESP 16–19; TEMP 36.4–37.1; O2SAT 91–98
[2021-05-31] MEDS: oxyCODONE HCL (*CRX) 5 MG TAB IR PO ×4 (01:12→21:45)
[2021-05-31] MEDS: ONDANSETRON INJ 4 MG/2 ML VIAL IV PUSH ×3 (01:15→21:44)
[2021-05-31] MEDS: SODIUM CHLORIDE 0.9% IV 1,000 ML 125 ML IV CONT (05:07)
[2021-05-31] MEDS: ACETAMINOPHEN 500 MG TABLET 1000 MG PO ×2 (05:51→11:44)
[2021-05-31 05:54] LABS: Basophils Percent Auto 0.3 % (0.2-1.2); Eosinophils Absolute Auto 0.2 K/mm3 (0-0.3); Eosinophils Percent Auto 1.9 % (0-4.4); Hematocrit 38.1 % (42.0-52.0); Immature Granulocyte Absolute 0.04 K/mm3 (0.00-0.031); Immature Granulocyte Percent A 0.4 % (0-0.5); Immature Platelet Fraction Pct 5.4 % (0.9-11.2); Lymphocytes Absolute Auto 3.28 K/mm3 (0.9-3.2); Mean Corpuscular HGB Conc 34.1 g/dl (32-36); Mean Corpuscular Hemoglobin 32.8 pg (26-34); Mean Corpuscular Volume 96.2 fl (80-100); Mean Platelet Volume 10.5 fl (7.4-10.4); Monocytes Absolute Auto 1.1 K/mm3 (0.1-0.6); Monocytes Percent Auto 10.8 % (2.6-8.5); Neutrophils Absolute Auto 5.6 K/mm3 (1.3-6.7); Neutrophils Percent Auto 54.6 % (45.5-73.1); Platelet Count Result 120 k/mm3 (150-375); Red Blood Count 3.96 M/mm3 (4.6-6.20); Red Cell Distribution Width 12.8 % (11.5-14.5); White Blood Count 10.3 K/mm3 (4.5-10.0)
[2021-05-31 06:08] LABS: Alanine Aminotransferase 22 U/L (4-50); Albumin Level 3.6 g/dL (3.5-5.1); Alkaline Phosphatase 29 U/L (38-126); Anion Gap 4 mmol/L (8-16); Aspartate Amino Transferase 31 U/L (17-59); Bilirubin,Total 1.2 mg/dL (0.2-1.3); Blood Urea Nitrogen 9 mg/dL (9-20); Calcium 8.1 mg/dL (8.4-10.2); Carbon Dioxide 33 mmol/L (22-30); Chloride 97 mmol/L (98-107); Estimated CRCL calculation 106 ml/min; Estimated Glomerular Filt Rate > 60; Glucose 120 mg/dL (65-110); Potassium 3.8 mmol/L (3.4-5.0); Sodium 134 mmol/L (137-145)
[2021-05-31] MEDS: APIXABAN 2.5 MG TABLET PO ×2 (09:09→20:41)
[2021-05-31] MEDS: THIAMINE HCL 100 MG TABLET PO (09:09)
[2021-05-31] MEDS: polyethylene glycoL 3350 17 GM POWD.PACK PO (09:10)
[2021-05-31] MEDS: CHOLECALCIFEROL 1,000 UNITS TABLET 5000 UNITS PO (09:10)
[2021-05-31] MEDS: SENNA/DOCUSATE SODIUM TABLET 2 TAB PO (09:10)
[2021-05-31] MEDS: ESCITALOPRAM OXALATE 10 MG TABLET 20 MG PO (09:10)
[2021-05-31] MEDS: carvediloL 6.25 MG TABLET PO ×2 (09:10→20:42)
[2021-05-31] MEDS: lisinopriL 2.5 MG TABLET PO (09:11)
[2021-05-31] MEDS: FAMOTIDINE 20 MG TABLET PO ×2 (09:11→20:42)
--- NOTE | 2021-05-31 10:38 | PM.PNCARD ---
Progress Note: A&P Additional Plan 75-year-old man with: History of coronary disease in history of paroxysmal atrial fibrillation the patient was admitted with fall and a intertrochanteric hip fracture. Today is postop day 1. There have been no cardiovascular problems that are apparent. He seems to be stable from that perspective. We will sign off of his inpatient follow-up at this time. Follow-up with me in the office in has been already scheduled and has been occurring for many years. Johnny Shah MD [facility] Subjective Date/time seen: Date of service: 05/31/21 10:38 Interval history: Follow-up visit in this 75-year-old man with: History of coronary disease, previous [place] and history of paroxysmal atrial fib, currently in sinus rhythm. Patient was hospitalized with fall and hip fracture. To the OR yesterday for open reduction and internal fixation. Patient seen today no evidence of any perioperative cardiac complications. Principal complaint is surgical pain and pain with physical therapy. Exam Const: General: uncomfortable HENMT: Mouth: Yes moist mucous membranes Eyes: Sclera: sclerae normal Neck: Neck: supple and no JVD Resp: Effort & Inspection: normal respiratory effort Auscultation: clear to auscultation bilaterally Other: Breath sounds distant but clear Cardio: Rate: regular rate Rhythm: regular rhythm Other: PMI not palpable because of obesity GI: GI Palp: Yes Soft to palpation Auscultation: normal bowel sounds Skin: General skin exam: normal color Neuro: Cognition (Neuro): normal cognition Objective Data Vital Signs Vital Signs: Vital Signs - 24 hr 05/30/21 11:54 05/30/21 14:55 05/30/21 15:10 Temperature 37.2 C 36.0 C L Pulse Rate 57 L 58 L 50 L Respiratory Rate 18 18 18 Blood Pressure 167/64 H 136/79 158/67 H Pulse Oximetry 96 94 100 05/30/21 15:25 05/30/21 15:40 05/30/21 15:42 Temperature Pulse Rate 55 L 55 L Respiratory Rate 18 18 Blood Pressure 149/68 H 141/58 H Pulse Oximetry 98 98 88 L 05/30/21 15:55 05/30/21 16:07 05/30/21 17:00 Temperature 36.7 C Pulse Rate 57 L 59 L 56 L Respiratory Rate 14 14 16 Blood Pressure 140/86 124/67 130/99 H Pulse Oximetry 94 96 95 05/30/21 17:15 05/30/21 17:45 05/30/21 18:45 Temperature 36.7 C 36.7 C 36.7 C Pulse Rate 55 L 97 62 Respiratory Rate 16 16 16 Blood Pressure 132/64 128/73 150/71 H Pulse Oximetry 95 97 95 05/30/21 20:00 05/30/21 20:42 05/30/21 20:54 Temperature Pulse Rate 61 86 62 Respiratory Rate 21 H Blood Pressure Pulse Oximetry 95 05/30/21 21:00 05/30/21 22:55 05/31/21 00:00 Temperature 36.7 C Pulse Rate 62 69 Respiratory Rate 18 Blood Pressure 158/81 H Pulse Oximetry 99 95 05/31/21 00:07 05/31/21 02:55 05/31/21 04:00 Temperature 37.1 C Pulse Rate 64 60 Respiratory Rate 18 19 Blood Pressure 157/71 H Pulse Oximetry 94 94 05/31/21 06:30 05/31/21 08:00 05/31/21 09:10 Temperature 36.4 C L 36.6 C Pulse Rate 58 L 57 L 60 Respiratory Rate 16 16 Blood Pressure 137/77 125/70 Pulse Oximetry 98 91 Intake/Output Intake/Output: Intake & Output 05/28/21 05/29/21 05/30/21 05/31/21 23:59 23:59 23:59 23:59 Intake Total 1350 1810 1520 Output Total 1550 1950 1000 Balance -200 -140 520 Meds/Results Medications: Active Medications Generic Name Dose Route Start Last Admin Trade Name Dagoq PRN Reason Stop Dose Admin Acetaminophen 1,000 mg 05/30/21 18:00 05/31/21 05:51 Acetaminophen 500 Mg Tablet PO 1,000 mg Q6HR JOCELYNE Administration Al Hydrox/Mg Hydrox/Simethicone 30 ml 05/30/21 16:09 Mag Hydrox/Al Hydrox/Simeth 30 Ml Udc PO Q6H PRN Indigestion Apixaban 2.5 mg 05/31/21 09:00 05/31/21 09:09 Apixaban 2.5 Mg Tablet PO 07/04/21 21:01 2.5 mg Q12HR JOCELYNE Administration Carvedilol 6.25 mg 05/29/21 09:00 05/31/21 09:10 Carvedilol 6.25 Mg Tablet PO 6.25 mg Q12HR JOCELYNE Administration Cephalexin HCl 500
--- NOTE | 2021-05-31 11:29 | PM.PNORT ---
Subjective Subjective Date/Time Seen: 05/31/21 11:29 POD 1 alert avss, labs noted, pt is up to chair this morn, dressing is dry, pt c/o of mod to severe pain, have talked to nurse-will make sure pt is getting 2 oxycodones q4h, also going to give pt IV torodal - doses ,hopefully this will improve pain control, pt has hx of chronic back pain which he states has been aggravated. pt states pain is same as his chronic pain- no new symptoms, working on rehab placement. Objective Data Vital Signs Vital Signs: Vital Signs - 24 hr 05/30/21 11:54 05/30/21 14:55 05/30/21 15:10 Temperature 37.2 C 36.0 C L Pulse Rate 57 L 58 L 50 L Respiratory Rate 18 18 18 Blood Pressure 167/64 H 136/79 158/67 H Pulse Oximetry 96 94 100 05/30/21 15:25 05/30/21 15:40 05/30/21 15:42 Temperature Pulse Rate 55 L 55 L Respiratory Rate 18 18 Blood Pressure 149/68 H 141/58 H Pulse Oximetry 98 98 88 L 05/30/21 15:55 05/30/21 16:07 05/30/21 17:00 Temperature 36.7 C Pulse Rate 57 L 59 L 56 L Respiratory Rate 14 14 16 Blood Pressure 140/86 124/67 130/99 H Pulse Oximetry 94 96 95 05/30/21 17:15 05/30/21 17:45 05/30/21 18:45 Temperature 36.7 C 36.7 C 36.7 C Pulse Rate 55 L 97 62 Respiratory Rate 16 16 16 Blood Pressure 132/64 128/73 150/71 H Pulse Oximetry 95 97 95 05/30/21 20:00 05/30/21 20:42 05/30/21 20:54 Temperature Pulse Rate 61 86 62 Respiratory Rate 21 H Blood Pressure Pulse Oximetry 95 05/30/21 21:00 05/30/21 22:55 05/31/21 00:00 Temperature 36.7 C Pulse Rate 62 69 Respiratory Rate 18 Blood Pressure 158/81 H Pulse Oximetry 99 95 05/31/21 00:07 05/31/21 02:55 05/31/21 04:00 Temperature 37.1 C Pulse Rate 64 60 Respiratory Rate 18 19 Blood Pressure 157/71 H Pulse Oximetry 94 94 05/31/21 06:30 05/31/21 08:00 05/31/21 09:10 Temperature 36.4 C L 36.6 C Pulse Rate 58 L 57 L 60 Respiratory Rate 16 16 Blood Pressure 137/77 125/70 Pulse Oximetry 98 91 Intake/Output Intake/Output: Intake & Output 05/28/21 05/29/21 05/30/21 05/31/21 23:59 23:59 23:59 23:59 Intake Total 1350 1810 1520 Output Total 1550 1950 1000 Balance -200 -140 520 Meds/Results Medications: Active Medications Generic Name Dose Route Start Last Admin Trade Name Freq PRN Reason Stop Dose Admin Acetaminophen 1,000 mg 05/30/21 18:00 05/31/21 05:51 Acetaminophen 500 Mg Tablet PO 1,000 mg Q6HR JOCELYNE Administration Al Hydrox/Mg Hydrox/Simethicone 30 ml 05/30/21 16:09 Mag Hydrox/Al Hydrox/Simeth 30 Ml Udc PO Q6H PRN Indigestion Apixaban 2.5 mg 05/31/21 09:00 05/31/21 09:09 Apixaban 2.5 Mg Tablet PO 07/04/21 21:01 2.5 mg Q12HR JOCELYNE Administration Carvedilol 6.25 mg 05/29/21 09:00 05/31/21 09:10 Carvedilol 6.25 Mg Tablet PO 6.25 mg Q12HR JOCELYNE Administration Cephalexin HCl 500 mg 05/31/21 18:00 Cephalexin 500 Mg Capsule PO Q6HR JOCELYNE Escitalopram Oxalate 20 mg 05/29/21 09:00 05/31/21 09:10 Escitalopram Oxalate 10 Mg Tablet PO 20 mg DAILY JOCELYNE Administration Famotidine 20 mg 05/30/21 21:00 05/31/21 09:11 Famotidine 20 Mg Tablet PO 20 mg Q12HR JOCELYNE Administration Hydroxyzine HCl 50 mg 05/30/21 16:09 Hydroxyzine Hcl 25 Mg Tablet PO Q4H PRN Itching Cefazolin Sodium 1 gm in 50 mls @ 100 mls/hr 05/30/21 21:00 05/31/21 05:37 Ancef 1 Gm/D5w 50 Ml Pm IVPB 05/31/21 13:29 Infused Q8H JOCELYNE Infusion Vancomycin HCl 1,000 mg in 250 mls @ 250 mls/hr 05/31/21 00:00 05/31/21 00:34 Vancomycin 1,000 Mg/D5w 250 Ml IVPB 05/31/21 12:59 Infused Q12H JOCELYNE Infusion Sodium Chloride 1,000 mls @ 125 mls/hr 05/30/21 16:09 05/31/21 05:07 Normal Saline Iv IV CONT 125 mls/hr .Q8H JOCELYNE Administration Ketorolac Tromethamine 15 mg 05/31/21 11:25 Ketorolac 15 Mg/Ml Vial (*[facility]) IV PUSH 05/31/21 23:26 Q6H JOCELYNE Lisinopril 2.5 mg 05/29/21 09:00 05/31/21 09:11 Lisinopril 2.5 Mg Tablet PO 2.5 mg
--- NOTE | 2021-05-31 11:41 | PM.IMPN ---
Progress Note: A&P Assessment and Plan (1) Intertrochanteric fracture of right femur: Qualifiers: Encounter type: initial encounter Fracture alignment: nondisplaced Fracture type: closed Qualified Code(s): S72.144A - Nondisplaced intertrochanteric fracture of right femur, initial encounter for closed fracture Code(s): S72.141A - Displaced intertrochanteric fracture of right femur, initial encounter for closed fracture Status: Acute Assessment and Plan: -Patient has acute intratrochanteric fracture of the right femur. -POD 1 -Underwood catheter has been placed. -pain control, dvt prophylaxis, and discharge planning per ortho -pending placement (2) Obstructive sleep apnea: Code(s): G47.33 - Obstructive sleep apnea (adult) (pediatric) Status: Acute Assessment and Plan: -Patient's home auto titrating CPAP has been ordered. (3) Coronary artery disease involving [place] coronary artery of [place] heart without angina pectoris: Code(s): I25.10 - Atherosclerotic heart disease of [place] coronary artery without angina pectoris Status: Acute Assessment and Plan: -Patient has history of coronary artery disease and systolic congestive heart failure. -He is on chronic anticoagulation with Eliquis. His Eliquis be on hold in anticipation of ORIF of the hip. -The patient ideally will need to be off Eliquis for 48 hours prior to surgical procedure. -EKG was reviewed and demonstrated normal sinus rhythm. -Chest x-ray demonstrated evidence of pulmonary vascular congestion. -Cleared by cardiology for surgery, cardiology has since signed off (4) Chronic anticoagulation: Code(s): Z79.01 - [facility] (current) use of anticoagulants Status: Acute Assessment and Plan: -eliquis resumed per ortho (5) Alcohol abuse: Code(s): F10.10 - Alcohol abuse, uncomplicated Status: Acute Assessment and Plan: -Patient has a history of heavy alcohol use. -He denies prior symptoms of alcohol withdrawal. -I discussed strategies in quitting alcohol use including decreasing his alcohol consumption by half a bottle wine a week until he is weaned off of alcohol use altogether. Subjective Date/time seen: 05/31/21 11:41 Interval history: 75-year-old male with past medical history of hypertension, hyperlipidemia, obstructive sleep apnea and paroxysmal atrial fibrillation, admitted to the hospital for R femur fracture. Today patient states he is in extreme pain currently since they moved him from the bed to the chair. He c/o nausea secondary to the pain. Also states he had a near syncopal episode earlier while transferring him because the pain was so bad. No cp or sob. No BM x 4 days. Review of Systems Review of Systems: All systems reviewed & are unremarkable except as noted in HPI and below Exam Narrative: PHYSICAL EXAM: WEIGHT 141.2 kg BMI 40 General: Obese, non toxic, uncomfortable, diaphoretic HEENT: Several missing teeth, remainder dentition is fair, pupils are equal and reactive Respiratory: Clear to auscultation bilaterally, no increased work of breathing Cardiovascular: Regular rate, regular rhythm, 2/6 systolic murmur Gastrointestinal: Soft, nontender, nondistended, positive bowel sounds Skin: No pallor, non jaundice, diaphoretic Musculoskeletal: dressing RLE c/d/i Neurological: Alert and oriented, speech is clear, no facial asymmetry Psychiatric: Verbalized depression, no suicidal homicidal ideation, judgment insight intact : Underwood catheter in place Hematologic/lymphatic: No petechiae, no bruising Objective Data Vital Signs Vital Signs: Vital Signs - 24 hr 05/30/21 11:54 05/30/21 14:55 05/30/21 15:10 Temperature 98.9 F 96.8 F L Pulse Rate 57 L 58 L 50 L Respiratory Rate 18 18 18 Blood Pressure 167/64 H 136/79 158/67 H Pulse Oximetry 96 94 100 05/30/21 15:25 05/30/21 15
[2021-05-31] MEDS: KETOROLAC 15 MG/ML VIAL (*BKC) IV PUSH (12:20)
--- NOTE | 2021-05-31 15:04 | P.PNAN_ITS ---
Anes - Prog Note Post-Op Date/Time: 05/31/21 15:04 Cardiovascular status: normal Respiratory status: normal Airway patency: baseline Mental status: baseline Post-Op hydration status: normal Vital Signs: Last Vital Signs Temp 98 F 05/31/21 08:00 Pulse 60 05/31/21 09:10 Resp 16 05/31/21 08:00 BP 125/70 05/31/21 08:00 Pulse Ox 91 05/31/21 08:00 Pain Score (VAS): 0 I/O: Intake & Output 05/30/21 05/31/21 05/31/21 23:59 07:59 15:59 Intake Total 970 1400 120 Output Total 275 1000 Balance 695 400 120 Laboratory Tests 05/31/21 05:29 05/31/21 05:29 05/31/21 05/31/21 05:29 05:29 WBC 10.3 H RBC 3.96 L Hgb 13.0 L Hct 38.1 L MCV 96.2 MCH 32.8 MCHC 34.1 RDW 12.8 Plt Count 120 L MPV 10.5 H Immature Gran % (Auto) 0.4 Neut % (Auto) 54.6 Lymph % (Auto) 32.0 [place] % (Auto) 10.8 H Eos % (Auto) 1.9 Baso % (Auto) 0.3 Lymph # (Auto) 3.28 H [place] # (Auto) 1.1 H Eos # (Auto) 0.2 Baso # (Auto) 0.0 Abs Immat Gran (auto) 0.04 H Absolute Neuts (auto) 5.6 Absolute Nucleated RBC 0.0 Nucleated RBC % 0.0 % Immature Plt Fraction 5.4 Sodium 134 L Potassium 3.8 Chloride 97 L Carbon Dioxide 33 H Anion Gap 4 L BUN 9 Creatinine 0.80 Estim Creat Clear Calc 106 Estimated GFR > 60 Glucose 120 H Calcium 8.1 L Total Bilirubin 1.2 AST 31 ALT 22 Alkaline Phosphatase 29 L Total Protein 7.0 Albumin 3.6 Post-procedural complaints: none Patient Feedback: Patient satisfied with anesthetic care. pt resting. pain 0 at rest, 10 with activity. no anesthesia complications
[2021-05-31] MEDS: CEPHALEXIN 500 MG CAPSULE PO (17:27)
[2021-05-31] MEDS: SIMVASTATIN 20 MG TABLET 40 MG PO (20:41)
[2021-06-01] VITALS (9 sets, daily range): BP systolic 134–146; BP diastolic 71–79; PULSE 52–63; RESP 18–22; TEMP 37.7; O2SAT 94–96
[2021-06-01] MEDS: ACETAMINOPHEN 500 MG TABLET 1000 MG PO ×4 (00:06→17:18)
[2021-06-01] MEDS: CEPHALEXIN 500 MG CAPSULE PO ×4 (00:06→17:19)
[2021-06-01] MEDS: KETOROLAC 15 MG/ML VIAL (*BKC) IV PUSH (00:07)
[2021-06-01 06:07] LABS: Basophils Percent Auto 0.3 % (0.2-1.2); Eosinophils Absolute Auto 0.4 K/mm3 (0-0.3); Eosinophils Percent Auto 4.1 % (0-4.4); Hematocrit 36.6 % (42.0-52.0); Hemoglobin 12.1 g/dL (14.0-18.0); Immature Granulocyte Absolute 0.03 K/mm3 (0.00-0.031); Immature Granulocyte Percent A 0.3 % (0-0.5); Immature Platelet Fraction Pct 7.7 % (0.9-11.2); Lymphocytes Absolute Auto 2.69 K/mm3 (0.9-3.2); Lymphocytes Percent Auto 28.7 % (18.3-44.2); Mean Corpuscular HGB Conc 33.1 g/dl (32-36); Mean Corpuscular Hemoglobin 32.6 pg (26-34); Mean Corpuscular Volume 98.7 fl (80-100); Mean Platelet Volume 10.7 fl (7.4-10.4); Monocytes Absolute Auto 1.1 K/mm3 (0.1-0.6); Monocytes Percent Auto 11.7 % (2.6-8.5); Neutrophils Absolute Auto 5.1 K/mm3 (1.3-6.7); Neutrophils Percent Auto 54.9 % (45.5-73.1); Platelet Count Result 134 k/mm3 (150-375); Red Blood Count 3.71 M/mm3 (4.6-6.20); Red Cell Distribution Width 12.7 % (11.5-14.5); White Blood Count 9.4 K/mm3 (4.5-10.0)
[2021-06-01 06:17] LABS: Anion Gap 4 mmol/L (8-16); Blood Urea Nitrogen 13 mg/dL (9-20); Calcium 8.7 mg/dL (8.4-10.2); Carbon Dioxide 32 mmol/L (22-30); Chloride 98 mmol/L (98-107); Estimated CRCL calculation 95 ml/min; Estimated Glomerular Filt Rate > 60; Glucose 122 mg/dL (65-110); Potassium 3.8 mmol/L (3.4-5.0); Sodium 134 mmol/L (137-145)
[2021-06-01] MEDS: oxyCODONE HCL (*CRX) 5 MG TAB IR PO ×4 (08:53→20:55)
[2021-06-01] MEDS: FAMOTIDINE 20 MG TABLET PO ×2 (08:54→20:56)
[2021-06-01] MEDS: SENNA/DOCUSATE SODIUM TABLET 2 TAB PO ×2 (08:54→17:19)
[2021-06-01] MEDS: THIAMINE HCL 100 MG TABLET PO (08:54)
[2021-06-01] MEDS: APIXABAN 2.5 MG TABLET PO ×2 (08:54→20:56)
[2021-06-01] MEDS: carvediloL 6.25 MG TABLET PO ×2 (08:55→20:56)
[2021-06-01] MEDS: polyethylene glycoL 3350 17 GM POWD.PACK PO (08:57)
[2021-06-01] MEDS: CHOLECALCIFEROL 1,000 UNITS TABLET 5000 UNITS PO (08:57)
[2021-06-01] MEDS: ESCITALOPRAM OXALATE 10 MG TABLET 20 MG PO (08:58)
[2021-06-01] MEDS: lisinopriL 2.5 MG TABLET PO (08:59)
--- NOTE | 2021-06-01 09:19 | PM.IMPN ---
Progress Note: A&P Assessment and Plan (1) Intertrochanteric fracture of right femur: Qualifiers: Encounter type: initial encounter Fracture alignment: nondisplaced Fracture type: closed Qualified Code(s): S72.144A - Nondisplaced intertrochanteric fracture of right femur, initial encounter for closed fracture Code(s): S72.141A - Displaced intertrochanteric fracture of right femur, initial encounter for closed fracture Status: Acute Assessment and Plan: -Patient has acute intratrochanteric fracture of the right femur. -POD 2 -Underwood catheter has been placed. -pain control, dvt prophylaxis, and discharge planning per ortho -pending placement (2) Obstructive sleep apnea: Code(s): G47.33 - Obstructive sleep apnea (adult) (pediatric) Status: Acute Assessment and Plan: -Patient's home auto titrating CPAP has been ordered. (3) Coronary artery disease involving [place] coronary artery of [place] heart without angina pectoris: Code(s): I25.10 - Atherosclerotic heart disease of [place] coronary artery without angina pectoris Status: Acute Assessment and Plan: -Patient has history of coronary artery disease and systolic congestive heart failure. -He is on chronic anticoagulation with Eliquis. His Eliquis be on hold in anticipation of ORIF of the hip. -The patient ideally will need to be off Eliquis for 48 hours prior to surgical procedure. -EKG was reviewed and demonstrated normal sinus rhythm. -Chest x-ray demonstrated evidence of pulmonary vascular congestion. -Cleared by cardiology for surgery, cardiology has since signed off (4) Chronic anticoagulation: Code(s): Z79.01 - [facility] (current) use of anticoagulants Status: Acute Assessment and Plan: -eliquis resumed per ortho (5) Alcohol abuse: Code(s): F10.10 - Alcohol abuse, uncomplicated Status: Acute Assessment and Plan: -Patient has a history of heavy alcohol use. -He denies prior symptoms of alcohol withdrawal. -I discussed strategies in quitting alcohol use including decreasing his alcohol consumption by half a bottle wine a week until he is weaned off of alcohol use altogether. Subjective Date/time seen: 06/01/21 09:19 Interval history: 75-year-old male with past medical history of hypertension, hyperlipidemia, obstructive sleep apnea and paroxysmal atrial fibrillation, admitted to the hospital for R femur fracture. Pain is manageable today. Transfer to chair was tolerated much better today. Has some nausea, he thinks from the oxycodone. Had some zofran which helped. No vomiting or abdominal pain. Still no BM. No cp/sob. Review of Systems Review of Systems: All systems reviewed & are unremarkable except as noted in HPI and below Exam Narrative: PHYSICAL EXAM: WEIGHT 141.2 kg BMI 40 General: Obese, non toxic, NAD HEENT: Several missing teeth, remainder dentition is fair, pupils are equal and reactive Respiratory: Clear to auscultation bilaterally, no increased work of breathing Cardiovascular: Regular rate, regular rhythm, 2/6 systolic murmur Gastrointestinal: Soft, nontender, nondistended, positive bowel sounds Skin: No pallor, non jaundice, diaphoretic Musculoskeletal: dressing RLE c/d/i Neurological: Alert and oriented, speech is clear, no facial asymmetry Psychiatric: Verbalized depression, no suicidal homicidal ideation, judgment insight intact : Underwood catheter in place Hematologic/lymphatic: No petechiae, no bruising Objective Data Vital Signs Vital Signs: Vital Signs - 24 hr 05/31/21 12:00 05/31/21 16:00 05/31/21 20:00 Temperature Pulse Rate 59 L 57 L 56 L Respiratory Rate Blood Pressure Pulse Oximetry 05/31/21 21:20 05/31/21 22:30 06/01/21 00:00 Temperature 98.8 F Pulse Rate 59 L 59 L 57 L Respiratory Rate 18 17 Blood Pressure 151/60 H Pulse Oxime
[2021-06-01 09:51] LABS: Red Blood Cell Folate 661 ng/mL RBC (>280)
[2021-06-01] MEDS: SIMVASTATIN 20 MG TABLET 40 MG PO (20:56)
[2021-06-02] VITALS (7 sets, daily range): BP systolic 129–160; BP diastolic 74–78; PULSE 54–62; RESP 16–20; TEMP 36.1–36.9; O2SAT 93–97
[2021-06-02] MEDS: ACETAMINOPHEN 500 MG TABLET 1000 MG PO ×5 (01:10→23:50)
[2021-06-02] MEDS: ONDANSETRON INJ 4 MG/2 ML VIAL IV PUSH ×2 (01:10→06:17)
[2021-06-02] MEDS: oxyCODONE HCL (*CRX) 5 MG TAB IR PO ×6 (01:10→21:17)
[2021-06-02] MEDS: CEPHALEXIN 500 MG CAPSULE PO ×5 (01:10→23:50)
[2021-06-02 06:09] LABS: Basophils Percent Auto 0.3 % (0.2-1.2); Eosinophils Absolute Auto 0.4 K/mm3 (0-0.3); Eosinophils Percent Auto 4.2 % (0-4.4); Hematocrit 36.1 % (42.0-52.0); Immature Granulocyte Absolute 0.03 K/mm3 (0.00-0.031); Immature Granulocyte Percent A 0.3 % (0-0.5); Lymphocytes Absolute Auto 2.83 K/mm3 (0.9-3.2); Mean Corpuscular HGB Conc 33.2 g/dl (32-36); Mean Corpuscular Hemoglobin 33.1 pg (26-34); Mean Corpuscular Volume 99.4 fl (80-100); Mean Platelet Volume 10.4 fl (7.4-10.4); Monocytes Absolute Auto 1.1 K/mm3 (0.1-0.6); Monocytes Percent Auto 12.7 % (2.6-8.5); Neutrophils Absolute Auto 4.5 K/mm3 (1.3-6.7); Neutrophils Percent Auto 50.5 % (45.5-73.1); Platelet Count Result 147 k/mm3 (150-375); Red Blood Count 3.63 M/mm3 (4.6-6.20); Red Cell Distribution Width 12.8 % (11.5-14.5); White Blood Count 8.8 K/mm3 (4.5-10.0)
[2021-06-02 06:12] LABS: Anion Gap 2 mmol/L (8-16); Blood Urea Nitrogen 11 mg/dL (9-20); Calcium 8.4 mg/dL (8.4-10.2); Carbon Dioxide 35 mmol/L (22-30); Chloride 99 mmol/L (98-107); Estimated CRCL calculation 106 ml/min; Estimated Glomerular Filt Rate > 60; Glucose 116 mg/dL (65-110); Potassium 3.8 mmol/L (3.4-5.0); Sodium 136 mmol/L (137-145)
[2021-06-02] MEDS: CHOLECALCIFEROL 1,000 UNITS TABLET 5000 UNITS PO (09:02)
[2021-06-02] MEDS: ESCITALOPRAM OXALATE 10 MG TABLET 20 MG PO (09:03)
[2021-06-02] MEDS: FAMOTIDINE 20 MG TABLET PO ×2 (09:04→20:27)
[2021-06-02] MEDS: APIXABAN 2.5 MG TABLET PO ×2 (09:04→20:27)
[2021-06-02] MEDS: lisinopriL 2.5 MG TABLET PO (09:04)
[2021-06-02] MEDS: SENNA/DOCUSATE SODIUM TABLET 2 TAB PO ×2 (09:05→17:37)
[2021-06-02] MEDS: THIAMINE HCL 100 MG TABLET PO (09:05)
[2021-06-02] MEDS: carvediloL 6.25 MG TABLET PO ×2 (09:05→20:28)
[2021-06-02] MEDS: polyethylene glycoL 3350 17 GM POWD.PACK PO (09:05)
--- NOTE | 2021-06-02 11:44 | PM.IMPN ---
Progress Note: A&P Assessment and Plan (1) Intertrochanteric fracture of right femur: Qualifiers: Encounter type: initial encounter Fracture alignment: nondisplaced Fracture type: closed Qualified Code(s): S72.144A - Nondisplaced intertrochanteric fracture of right femur, initial encounter for closed fracture Code(s): S72.141A - Displaced intertrochanteric fracture of right femur, initial encounter for closed fracture Status: Acute Assessment and Plan: -Patient has acute intratrochanteric fracture of the right femur. -POD 2 -Underwood catheter has been placed. -pain control, dvt prophylaxis, and discharge planning per ortho -pending placement - 06/02: Pt. progressing with PT and is improving overall. We are currently awaiting placement. Pain is well controlled. (2) Obstructive sleep apnea: Code(s): G47.33 - Obstructive sleep apnea (adult) (pediatric) Status: Acute Assessment and Plan: -Patient's home auto titrating CPAP has been ordered. (3) Coronary artery disease involving diomede coronary artery of diomede heart without angina pectoris: Code(s): I25.10 - Atherosclerotic heart disease of diomede coronary artery without angina pectoris Status: Acute Assessment and Plan: -Patient has history of coronary artery disease and systolic congestive heart failure. -He is on chronic anticoagulation with Eliquis. His Eliquis be on hold in anticipation of ORIF of the hip. -The patient ideally will need to be off Eliquis for 48 hours prior to surgical procedure. -EKG was reviewed and demonstrated normal sinus rhythm. -Chest x-ray demonstrated evidence of pulmonary vascular congestion. -Cleared by cardiology for surgery, cardiology has since signed off - 06/02: Stable. (4) Chronic anticoagulation: Code(s): Z79.01 - detention (current) use of anticoagulants Status: Acute Assessment and Plan: -eliquis resumed per ortho - 06/02: Continue Eliquis. (5) Alcohol abuse: Code(s): F10.10 - Alcohol abuse, uncomplicated Status: Acute Assessment and Plan: -Patient has a history of heavy alcohol use. -He denies prior symptoms of alcohol withdrawal. -I discussed strategies in quitting alcohol use including decreasing his alcohol consumption by half a bottle wine a week until he is weaned off of alcohol use altogether. - 06/02: No signs of withdrawl to this point now 5 days without a drink. Time Spent With Patient Time with patient: 15 - 25 minutes Subjective Date/time seen: 06/02/21 11:44 This patient was examined at the bedside in interval assessment of his right hip pain status post inter trochanteric fracture of the femur. He is now postop day 3. Patient has been progressing according to physical therapy and has been working very hard. He is making slow progress. Underwood catheter is now out. Pt. denies any new complaints today and no CP, Dyspnea, N/V/D/constipation Review of Systems Review of Systems: All systems reviewed & are unremarkable except as noted in HPI and below Exam Narrative: General: Obese, non toxic, NAD HEENT: Several missing teeth, remainder dentition is fair, pupils are equal and reactive Respiratory: Clear to auscultation bilaterally, no increased work of breathing Cardiovascular: Regular rate, regular rhythm, 2/6 systolic murmur Gastrointestinal: Soft, nontender, nondistended, positive bowel sounds Skin: No pallor, non jaundice, diaphoretic Musculoskeletal: dressing RLE c/d/i Neurological: Alert and oriented, speech is clear, no facial asymmetry Psychiatric: Verbalized depression, no suicidal homicidal ideation, judgment insight intact : Underwood catheter in place Hematologic/lymphatic: No petechiae, no bruising Objective Data Vital Signs Vital Signs: Vital Signs - 24 hr 06/01/21 13:00 06/01/21 20:05 06/01/21 22:00 Temperature 99.8 F H 99.8 F H P
[2021-06-02] MEDS: SIMVASTATIN 20 MG TABLET 40 MG PO (20:27)
[2021-06-03] VITALS (9 sets, daily range): BP systolic 126–135; BP diastolic 68–73; PULSE 49–56; RESP 16–24; TEMP 36.1–36.5; O2SAT 93–97
[2021-06-03] MEDS: oxyCODONE HCL (*CRX) 5 MG TAB IR PO ×6 (01:05→21:22)
[2021-06-03 05:47] LABS: Basophils Percent Auto 0.2 % (0.2-1.2); Eosinophils Absolute Auto 0.3 K/mm3 (0-0.3); Eosinophils Percent Auto 3.5 % (0-4.4); Hematocrit 34.4 % (42.0-52.0); Hemoglobin 11.8 g/dL (14.0-18.0); Immature Granulocyte Absolute 0.03 K/mm3 (0.00-0.031); Immature Granulocyte Percent A 0.4 % (0-0.5); Lymphocytes Absolute Auto 3.05 K/mm3 (0.9-3.2); Mean Corpuscular HGB Conc 34.3 g/dl (32-36); Mean Corpuscular Volume 96.1 fl (80-100); Mean Platelet Volume 9.9 fl (7.4-10.4); Monocytes Absolute Auto 1.1 K/mm3 (0.1-0.6); Monocytes Percent Auto 12.7 % (2.6-8.5); Neutrophils Percent Auto 47.2 % (45.5-73.1); Platelet Count Result 170 k/mm3 (150-375); Red Blood Count 3.58 M/mm3 (4.6-6.20); Red Cell Distribution Width 12.6 % (11.5-14.5); White Blood Count 8.5 K/mm3 (4.5-10.0)
[2021-06-03 06:03] LABS: Alanine Aminotransferase 52 U/L (4-50); Albumin Level 3.5 g/dL (3.5-5.1); Alkaline Phosphatase 46 U/L (38-126); Anion Gap 5 mmol/L (8-16); Aspartate Amino Transferase 56 U/L (17-59); Bilirubin,Total 0.9 mg/dL (0.2-1.3); Blood Urea Nitrogen 11 mg/dL (9-20); Calcium 8.3 mg/dL (8.4-10.2); Carbon Dioxide 32 mmol/L (22-30); Chloride 97 mmol/L (98-107); Estimated CRCL calculation 106 ml/min; Estimated Glomerular Filt Rate > 60; Glucose 117 mg/dL (65-110); Magnesium 1.7 mg/dL (1.6-2.3); Potassium 3.8 mmol/L (3.4-5.0); Sodium 134 mmol/L (137-145)
[2021-06-03] MEDS: CEPHALEXIN 500 MG CAPSULE PO ×4 (06:03→23:47)
[2021-06-03] MEDS: ACETAMINOPHEN 500 MG TABLET 1000 MG PO ×4 (06:03→23:47)
--- NOTE | 2021-06-03 07:28 | PM.PNORT ---
Progress Note: A&P Additional Plan Patient states he is much more comfortable today. He has mild swelling in the right calf compared to left. The dressings over his wounds are dry with no drainage on the dressings. He is alert and oriented. He does not seem to have developed any signs of delirium tremens. He is getting up to the chair for transfers. He is progressing. I have increased his Eliquis to his admission dose of 5 mg twice daily as he has no signs of bleeding. His hemoglobin has remained stable at 11.8 this morning. Platelets [id number]. White count normal of 8.5. Subjective Subjective Date/Time Seen: 06/03/21 07:28 Objective Data Vital Signs Vital Signs: Vital Signs - 24 hr 06/02/21 09:05 06/02/21 14:00 06/02/21 20:28 Temperature 36.1 C L Pulse Rate 57 L 54 L 62 Respiratory Rate 18 Blood Pressure 129/74 Pulse Oximetry 93 06/02/21 22:00 06/02/21 22:01 06/03/21 03:00 Temperature 36.4 C Pulse Rate 56 L Respiratory Rate 18 20 20 Blood Pressure 148/78 H Pulse Oximetry 96 96 96 06/03/21 06:00 Temperature 36.4 C L Pulse Rate 55 L Respiratory Rate 18 Blood Pressure 135/69 Pulse Oximetry 97 Intake/Output Intake/Output: Intake & Output 05/31/21 06/01/21 06/02/21 06/03/21 23:59 23:59 23:59 23:59 Intake Total 1860 1750 1820 Output Total 1000 1900 1384 Balance 860 -150 436 Meds/Results Medications: Active Medications Generic Name Dose Route Start Last Admin Trade Name Freq PRN Reason Stop Dose Admin Acetaminophen 1,000 mg 05/30/21 18:00 06/03/21 06:03 Acetaminophen 500 Mg Tablet PO 1,000 mg Q6HR JOCELYNE Administration Al Hydrox/Mg Hydrox/Simethicone 30 ml 05/30/21 16:09 Mag Hydrox/Al Hydrox/Simeth 30 Ml Udc PO Q6H PRN Indigestion Apixaban 5 mg 06/03/21 09:00 Apixaban 5 Mg Tablet PO Q12HR JOCELYNE Carvedilol 6.25 mg 05/29/21 09:00 06/02/21 20:28 Carvedilol 6.25 Mg Tablet PO 6.25 mg Q12HR JOCELYNE Administration Cephalexin HCl 500 mg 05/31/21 18:00 06/03/21 06:03 Cephalexin 500 Mg Capsule PO 500 mg Q6HR JOCELYNE Administration Escitalopram Oxalate 20 mg 05/29/21 09:00 06/02/21 09:03 Escitalopram Oxalate 10 Mg Tablet PO 20 mg DAILY JOCELYNE Administration Famotidine 20 mg 05/30/21 21:00 06/02/21 20:27 Famotidine 20 Mg Tablet PO 20 mg Q12HR JOCELYNE Administration Hydroxyzine HCl 50 mg 05/30/21 16:09 Hydroxyzine Hcl 25 Mg Tablet PO Q4H PRN Itching Lisinopril 2.5 mg 05/29/21 09:00 06/02/21 09:04 Lisinopril 2.5 Mg Tablet PO 2.5 mg DAILY JOCELYNE Administration Magnesium Hydroxide 30 ml 05/30/21 16:09 Magnesium Hydroxide Susp 30 Ml Udc PO BID PRN Constipation Morphine Sulfate 2 mg 05/30/21 16:09 Morphine Sulfate (*Crx) 2 Mg/Ml Inj IV PUSH Q3H PRN Pain Rated 7-10 Naloxone HCl 0.1 mg 05/30/21 16:09 Naloxone Hcl 0.4 Mg/Ml Vial IV PUSH Q2M PRN Opiate Reversal Ondansetron HCl 4 mg 05/30/21 16:09 06/02/21 06:17 Ondansetron Inj 4 Mg/2 Ml Vial IV PUSH 4 mg Q4H PRN Administration Nausea And Vomiting Oxycodone HCl 5 mg 05/30/21 16:09 05/31/21 21:45 Oxycodone Hcl (*Crx) 5 Mg Tab Ir PO 5 mg Q4H PRN Administration Pain Rated 4-6 Oxycodone HCl 5 mg 05/30/21 17:00 06/03/21 05:16 Oxycodone Hcl (*Crx) 5 Mg Tab Ir PO 5 mg Q4HR JOCELYNE Administration Polyethylene Glycol 17 gm 05/31/21 09:00 06/02/21 09:05 Polyethylene Glycol 3350 17 Gm Powd.Pack PO 17 gm QAM JOCELYNE Administration Senna/Docusate Sodium 2 tab 05/30/21 17:00 06/02/21 17:37 Senna/Docusate Sodium Tablet PO 2 tab BID JOCELYNE Administration Simvastatin 40 mg 05/29/21 21:00 06/02/21 20:27 Simvastatin 20 Mg Tablet PO 40 mg HS [facility] Administration Thiamine HCl 100 mg 05/29/21 09:00 06/02/21 09:05 Thiamine Hcl 100 Mg Tablet PO 100 mg QAM [facility] Administration Vitamin D 5,000 units 05/29/21 09:00 06/02/21 09:02 Cholecalcif
[2021-06-03] MEDS: carvediloL 6.25 MG TABLET PO (08:30)
[2021-06-03] MEDS: lisinopriL 2.5 MG TABLET PO (08:31)
[2021-06-03] MEDS: ESCITALOPRAM OXALATE 10 MG TABLET 20 MG PO (08:31)
[2021-06-03] MEDS: THIAMINE HCL 100 MG TABLET PO (08:31)
[2021-06-03] MEDS: CHOLECALCIFEROL 1,000 UNITS TABLET 5000 UNITS PO (08:31)
[2021-06-03] MEDS: FAMOTIDINE 20 MG TABLET PO ×2 (08:32→20:06)
[2021-06-03] MEDS: APIXABAN 5 MG TABLET PO ×2 (08:37→20:07)
--- NOTE | 2021-06-03 10:16 | PM.IMPN ---
Progress Note: A&P Assessment and Plan (1) Intertrochanteric fracture of right femur: Qualifiers: Encounter type: initial encounter Fracture alignment: nondisplaced Fracture type: closed Qualified Code(s): S72.144A - Nondisplaced intertrochanteric fracture of right femur, initial encounter for closed fracture Code(s): S72.141A - Displaced intertrochanteric fracture of right femur, initial encounter for closed fracture Status: Acute Assessment and Plan: -Patient has acute intratrochanteric fracture of the right femur. -POD 3 -Underwood catheter has been placed. -pain control, dvt prophylaxis, and discharge planning per ortho -pending placement (2) Obstructive sleep apnea: Code(s): G47.33 - Obstructive sleep apnea (adult) (pediatric) Status: Acute Assessment and Plan: -Patient's home auto titrating CPAP has been ordered. (3) Coronary artery disease involving circle coronary artery of circle heart without angina pectoris: Code(s): I25.10 - Atherosclerotic heart disease of circle coronary artery without angina pectoris Status: Acute Assessment and Plan: -Patient has history of coronary artery disease and systolic congestive heart failure. -He is on chronic anticoagulation with Eliquis. His Eliquis be on hold in anticipation of ORIF of the hip. -The patient ideally will need to be off Eliquis for 48 hours prior to surgical procedure. -EKG was reviewed and demonstrated normal sinus rhythm. -Chest x-ray demonstrated evidence of pulmonary vascular congestion. -Cleared by cardiology for surgery, cardiology has since signed off (4) Chronic anticoagulation: Code(s): Z79.01 - longterm (current) use of anticoagulants Status: Acute Assessment and Plan: -eliquis resumed per ortho Continue Eliquis. (5) Alcohol abuse: Code(s): F10.10 - Alcohol abuse, uncomplicated Status: Acute Assessment and Plan: -Patient has a history of heavy alcohol use. -He denies prior symptoms of alcohol withdrawal. Continue to educate about alcohol abuse Subjective Date/time seen: 06/03/21 10:16 No significant changes in the patient's clinical presentation. He continues to work with physical therapy and occupational therapy. Pending placement. Review of Systems Review of Systems: All systems reviewed & are unremarkable except as noted in HPI and below Exam Narrative: General: Obese, non toxic, NAD HEENT: Several missing teeth, remainder dentition is fair, pupils are equal and reactive Respiratory: Clear to auscultation bilaterally, no increased work of breathing Cardiovascular: Regular rate, regular rhythm, 2/6 systolic murmur Gastrointestinal: Soft, nontender, nondistended, positive bowel sounds Skin: No pallor, non jaundice, diaphoretic Musculoskeletal: dressing RLE c/d/i Neurological: Alert and oriented, speech is clear, no facial asymmetry Psychiatric: Verbalized depression, no suicidal homicidal ideation, judgment insight intact : Underwood catheter in place Hematologic/lymphatic: No petechiae, no bruising Objective Data Vital Signs Vital Signs: Vital Signs - 24 hr 06/02/21 14:00 06/02/21 20:28 06/02/21 22:00 Temperature 96.9 F L 97.6 F Pulse Rate 54 L 62 56 L Respiratory Rate 18 18 Blood Pressure 129/74 148/78 H Pulse Oximetry 93 96 06/02/21 22:01 06/03/21 03:00 06/03/21 06:00 Temperature 97.5 F L Pulse Rate 55 L Respiratory Rate 20 20 18 Blood Pressure 135/69 Pulse Oximetry 96 96 97 06/03/21 08:30 Temperature Pulse Rate 56 L Respiratory Rate Blood Pressure Pulse Oximetry Intake/Output Intake/Output: Intake & Output 05/31/21 06/01/21 06/02/21 06/03/21 23:59 23:59 23:59 23:59 Intake Total 1860 1750 1820 480 Output Total 1000 1900 1384 Balance 860 -150 436 480 Meds/Results Medications: Active Medications Generic Name Dose
[2021-06-03] MEDS: SIMVASTATIN 20 MG TABLET 40 MG PO (20:06)
[2021-06-04] MEDS: oxyCODONE HCL (*CRX) 5 MG TAB IR PO ×4 (01:09→12:50)
[2021-06-04 03:12] VITALS: RESP 14
[2021-06-04] MEDS: ACETAMINOPHEN 500 MG TABLET 1000 MG PO ×2 (05:47→12:50)
[2021-06-04] MEDS: CEPHALEXIN 500 MG CAPSULE PO ×2 (05:47→12:50)
[2021-06-04 06:00] VITALS: BP 164/69; PULSE 63; RESP 20; TEMP 37.2; O2SAT 95
[2021-06-04 06:17] LABS: Basophils Percent Auto 0.2 % (0.2-1.2); Eosinophils Absolute Auto 0.3 K/mm3 (0-0.3); Eosinophils Percent Auto 3.9 % (0-4.4); Hematocrit 35.4 % (42.0-52.0); Hemoglobin 11.7 g/dL (14.0-18.0); Immature Granulocyte Absolute 0.02 K/mm3 (0.00-0.031); Immature Granulocyte Percent A 0.2 % (0-0.5); Lymphocytes Absolute Auto 3.06 K/mm3 (0.9-3.2); Lymphocytes Percent Auto 38.2 % (18.3-44.2); Mean Corpuscular HGB Conc 33.1 g/dl (32-36); Mean Corpuscular Hemoglobin 32.8 pg (26-34); Mean Corpuscular Volume 99.2 fl (80-100); Mean Platelet Volume 10.1 fl (7.4-10.4); Monocytes Absolute Auto 1.1 K/mm3 (0.1-0.6); Monocytes Percent Auto 13.3 % (2.6-8.5); Neutrophils Absolute Auto 3.5 K/mm3 (1.3-6.7); Neutrophils Percent Auto 44.2 % (45.5-73.1); Platelet Count Result 204 k/mm3 (150-375); Red Blood Count 3.57 M/mm3 (4.6-6.20); Red Cell Distribution Width 12.8 % (11.5-14.5)
[2021-06-04 06:25] LABS: Alanine Aminotransferase 49 U/L (4-50); Albumin Level 3.3 g/dL (3.5-5.1); Alkaline Phosphatase 49 U/L (38-126); Anion Gap 3 mmol/L (8-16); Aspartate Amino Transferase 45 U/L (17-59); Bilirubin,Total 0.8 mg/dL (0.2-1.3); Blood Urea Nitrogen 10 mg/dL (9-20); Calcium 8.4 mg/dL (8.4-10.2); Carbon Dioxide 35 mmol/L (22-30); Chloride 98 mmol/L (98-107); Estimated CRCL calculation 106 ml/min; Estimated Glomerular Filt Rate > 60; Glucose 111 mg/dL (65-110); Magnesium 1.8 mg/dL (1.6-2.3); Potassium 3.6 mmol/L (3.4-5.0); Sodium 136 mmol/L (137-145)
--- NOTE | 2021-06-04 06:29 | PM.PNORT ---
Subjective Subjective Date/Time Seen: 06/04/21 06:29 Postop day 6 patient is afebrile vital signs stable. Hemoglobin stable. He is back on his normal dose Eliquis. Mild swelling in right thigh. Dressings are dry. Increased swelling in either lower extremity. Pomologist has working nursing placement. Patient will continue to be bed to chair transfer only. Objective Data Vital Signs Vital Signs: Vital Signs - 24 hr 06/03/21 08:00 06/03/21 08:30 06/03/21 14:00 Temperature 36.5 C Pulse Rate 56 L 56 L 55 L Respiratory Rate 18 18 Blood Pressure 131/68 Pulse Oximetry 97 95 06/03/21 19:12 06/03/21 20:09 06/03/21 22:00 Temperature 36.1 C L Pulse Rate 54 L 49 L 50 L Respiratory Rate 24 H 20 Blood Pressure 126/73 Pulse Oximetry 93 97 06/03/21 23:26 06/04/21 03:12 06/04/21 06:00 Temperature 37.2 C Pulse Rate 52 L 63 Respiratory Rate 16 14 20 Blood Pressure 164/69 H Pulse Oximetry 94 95 Intake/Output Intake/Output: Intake & Output 06/01/21 06/02/21 06/03/21 06/04/21 23:59 23:59 23:59 23:59 Intake Total 1750 1820 2160 220 Output Total 1900 1384 1450 1050 Balance -150 436 710 -830 Meds/Results Medications: Active Medications Generic Name Dose Route Start Last Admin Trade Name Freq PRN Reason Stop Dose Admin Acetaminophen 1,000 mg 05/30/21 18:00 06/04/21 05:47 Acetaminophen 500 Mg Tablet PO 1,000 mg Q6HR JOCELYNE Administration Al Hydrox/Mg Hydrox/Simethicone 30 ml 05/30/21 16:09 Mag Hydrox/Al Hydrox/Simeth 30 Ml Udc PO Q6H PRN Indigestion Apixaban 5 mg 06/03/21 09:00 06/03/21 20:07 Apixaban 5 Mg Tablet PO 5 mg Q12HR JOCELYNE Administration Carvedilol 6.25 mg 05/29/21 09:00 06/03/21 20:09 Carvedilol 6.25 Mg Tablet PO Not Given Q12HR JOCELYNE Cephalexin HCl 500 mg 05/31/21 18:00 06/04/21 05:47 Cephalexin 500 Mg Capsule PO 500 mg Q6HR JOCELYNE Administration Escitalopram Oxalate 20 mg 05/29/21 09:00 06/03/21 08:31 Escitalopram Oxalate 10 Mg Tablet PO 20 mg DAILY JOCELYNE Administration Famotidine 20 mg 05/30/21 21:00 06/03/21 20:06 Famotidine 20 Mg Tablet PO 20 mg Q12HR JOCELYNE Administration Hydroxyzine HCl 50 mg 05/30/21 16:09 Hydroxyzine Hcl 25 Mg Tablet PO Q4H PRN Itching Lisinopril 2.5 mg 05/29/21 09:00 06/03/21 08:31 Lisinopril 2.5 Mg Tablet PO 2.5 mg DAILY JOCELYNE Administration Magnesium Hydroxide 30 ml 05/30/21 16:09 Magnesium Hydroxide Susp 30 Ml Udc PO BID PRN Constipation Morphine Sulfate 2 mg 05/30/21 16:09 Morphine Sulfate (*Crx) 2 Mg/Ml Inj IV PUSH Q3H PRN Pain Rated 7-10 Naloxone HCl 0.1 mg 05/30/21 16:09 Naloxone Hcl 0.4 Mg/Ml Vial IV PUSH Q2M PRN Opiate Reversal Ondansetron HCl 4 mg 05/30/21 16:09 06/02/21 06:17 Ondansetron Inj 4 Mg/2 Ml Vial IV PUSH 4 mg Q4H PRN Administration Nausea And Vomiting Oxycodone HCl 5 mg 05/30/21 16:09 05/31/21 21:45 Oxycodone Hcl (*Crx) 5 Mg Tab Ir PO 5 mg Q4H PRN Administration Pain Rated 4-6 Oxycodone HCl 5 mg 05/30/21 17:00 06/04/21 05:03 Oxycodone Hcl (*Crx) 5 Mg Tab Ir PO 5 mg Q4HR JOCELYNE Administration Polyethylene Glycol 17 gm 05/31/21 09:00 06/03/21 08:34 Polyethylene Glycol 3350 17 Gm Powd.Pack PO Not Given QAM JOCELYNE Senna/Docusate Sodium 2 tab 05/30/21 17:00 06/03/21 16:57 Senna/Docusate Sodium Tablet PO Not Given BID JOCELYNE Simvastatin 40 mg 05/29/21 21:00 06/03/21 20:06 Simvastatin 20 Mg Tablet PO 40 mg HS JOCELYNE Administration Thiamine HCl 100 mg 05/29/21 09:00 06/03/21 08:31 Thiamine Hcl 100 Mg Tablet PO 100 mg QAM JOCELYNE Administration Vitamin D 5,000 units 05/29/21 09:00 06/03/21 08:31 Cholecalciferol 1,000 Units Tablet PO 5,000 units DAILY JOCELYNE Administration Radiology Results: ITS Impressions Lumbar Spine CT 05/28/21 17:59 IMPRESSION: No acute fracture or traumatic malalignme
[2021-06-04] MEDS: ESCITALOPRAM OXALATE 10 MG TABLET 20 MG PO (09:06)
[2021-06-04] MEDS: APIXABAN 5 MG TABLET PO (09:06)
[2021-06-04 09:07] VITALS: PULSE 58
[2021-06-04] MEDS: CHOLECALCIFEROL 1,000 UNITS TABLET 5000 UNITS PO (09:07)
[2021-06-04] MEDS: carvediloL 6.25 MG TABLET PO (09:07)
[2021-06-04] MEDS: FAMOTIDINE 20 MG TABLET PO (09:08)
[2021-06-04] MEDS: lisinopriL 2.5 MG TABLET PO (09:08)
[2021-06-04] MEDS: THIAMINE HCL 100 MG TABLET PO (09:08)
--- NOTE | 2021-06-04 10:41 | PM.DS ---
DS: Admitting Diagnosis Discharge Date 06/04/2021 Admitting Diagnosis Acute intra trochanter fracture of the right femur DS: Discharge Diagnosis Discharge Diagnosis (1) Intertrochanteric fracture of right femur: Qualifiers: Encounter type: initial encounter Fracture alignment: nondisplaced Fracture type: closed Qualified Code(s): S72.144A - Nondisplaced intertrochanteric fracture of right femur, initial encounter for closed fracture Code(s): S72.141A - Displaced intertrochanteric fracture of right femur, initial encounter for closed fracture Status: Acute Assessment and Plan: -Patient has acute intratrochanteric fracture of the right femur. -POD 3 -Underwood catheter has been placed. -pain control, dvt prophylaxis, and discharge planning per ortho -pending placement (2) Obstructive sleep apnea: Code(s): G47.33 - Obstructive sleep apnea (adult) (pediatric) Status: Acute Assessment and Plan: -Patient's home auto titrating CPAP has been ordered. (3) Coronary artery disease involving wainwright coronary artery of wainwright heart without angina pectoris: Code(s): I25.10 - Atherosclerotic heart disease of [place]ain[place] coronary artery without angina pectoris Status: Acute Assessment and Plan: -Patient has history of coronary artery disease and systolic congestive heart failure. -He is on chronic anticoagulation with Eliquis. His Eliquis be on hold in anticipation of ORIF of the hip. -The patient ideally will need to be off Eliquis for 48 hours prior to surgical procedure. -EKG was reviewed and demonstrated normal sinus rhythm. -Chest x-ray demonstrated evidence of pulmonary vascular congestion. -Cleared by cardiology for surgery, cardiology has since signed off (4) Chronic anticoagulation: Code(s): Z79.01 - FDC (current) use of anticoagulants Status: Acute Assessment and Plan: -eliquis resumed per ortho Continue Eliquis. (5) Alcohol abuse: Code(s): F10.10 - Alcohol abuse, uncomplicated Status: Acute Assessment and Plan: -Patient has a history of heavy alcohol use. -He denies prior symptoms of alcohol withdrawal. Continue to educate about alcohol abuse DS: Summary Hospital Course Reason for hospitalization: acute intratrochanteric fracture of the right femur Hospital Course: 75-year-old male with past medical history of hypertension, hyperlipidemia, obstructive sleep apnea and paroxysmal atrial fibrillation who presented to the ER after having tripped and fell. The patient reports that he was walking down the singer in caught his foot on a cord. He have fell and landed onto his buttocks causing pain in his low back. He reports chronic low back pain due to history of bulging discs and degenerative disc disease. He reports that he had already been having increased low back pain for a week or so and the pain was radiating up his right leg when he would put weight on to his leg. When he caught his foot on the record he had to switch is weight to his right leg and subsequently fell. He attempted for about an hour to get up off the floor by himself but when he almost passed out while lifting himself up on the sink he laid back down and called for help with his cellphone. While in the emergency department in being evaluated by the hospitalist the patient did endorse that he drinks 2-3 bottles of alcohol approximately 5/7 days a week. He reports a significant heavy alcohol use his entire life and has had multiple discussions with his primary care physician about his alcohol consumption. During the patient's hospitalization he was treated for an acute intertrochanteric fracture of the right femur which required bed rest in a Underwood catheter insertion. Orthopedic surgery was consulted by the emergency department he was provided IV pain medication with Dilaudid 0.5 mg every 3 hours p.r.n. for severe pa
--- NOTE | 2021-06-04 11:22 | PCNWS ---
Weekly nutritional screen. Patient is tolerating current diet with adequate intake. No weight loss reported. No nutritional needs at this time.
[2021-06-04 11:51] LABS: EDCOVIDSCREEN Negative (Negative)
[2021-06-04 13:17] VITALS: O2SAT 95
[2021-06-04 14:00] VITALS: BP 129/65; PULSE 52; RESP 16; TEMP 36.4; O2SAT 97
--- NOTE | 2021-06-04 15:22 | PC.NURSE ---
On 06/04/21, the student, Park Monroy, provided care and completed [facility] documentation on this patient. I have reviewed the student's documentation and agree with the findings.
== END 2021-06-04 15:55 | DRG 481 ==
LOC: ANHED 18:51 → ANH3MEDSUR 19:30
PROVIDERS: Internal Medicine; Nurse Practitioner Adult Health; Orthopaedic Surgery; Physician Assistant; Admitting Provider Internal Medicine; Emergency Provider Emergency Medicine; PCP Family Medicine; Visit Provider Nurse Practitioner Family
PROC: 0QS636Z Reposition Right Upper Femur with Intramedullary Internal Fixation Device, Percutaneous Approach (ICD-10-PCS; CPT 27245; principal; 2021-05-30 13:00)
DX: S72.141A Displaced intertrochanteric fracture of right femur, initial encounter for closed fracture (principal); I50.22 Chronic systolic (congestive) heart failure; I48.92 Unspecified atrial flutter; Z68.41 Body mass index [BMI] 40.0-44.9, adult; Z20.822 Contact with and (suspected) exposure to COVID-19; I48.0 Paroxysmal atrial fibrillation; F41.9 Anxiety disorder, unspecified; F32.A Depression, unspecified; G47.33 Obstructive sleep apnea (adult) (pediatric); D51.9 Vitamin B12 deficiency anemia, unspecified; E55.9 Vitamin D deficiency, unspecified; I25.10 Atherosclerotic heart disease of native coronary artery without angina pectoris; W01.0XXA Fall on same level from slipping, tripping and stumbling without subsequent striking against object, initial encounter; F10.10 Alcohol abuse, uncomplicated; Z87.891 Personal history of nicotine dependence; G89.29 Other chronic pain; M54.9 Dorsalgia, unspecified; E66.01 Morbid (severe) obesity due to excess calories; Z98.42 Cataract extraction status, left eye; Z98.41 Cataract extraction status, right eye; Z96.1 Presence of intraocular lens; Z79.01 Long term (current) use of anticoagulants; I25.2 Old myocardial infarction
CPT/HCPCS: 36415; 51702; 71045; 72131; 73502; 73700; 80048; 80053; 80307; 81003; 82306; 82607; 82747; 83735; 85025; 85055; 85610; 85730; 86850; 86900; 86901; 87426; 93005; 94003; 96374; 96375; 97110; 97161; 97166; 97530; 97535; 99285; A9270; C1713; C8929; C9803; J0690; J1170; J1885; J2270; J2405; J2704; J3010; J3370; J7030; J7120; Q9957

== ENCOUNTER 2023-11-16 12:37 | Outpatient (CLI) | payer MEDICARE, SELFPAY | END 2023-11-16 12:38 | disposition home or self-care (01) | LOC: ANHAUDIO 12:38 | PROVIDERS: PCP Family Medicine; Visit Provider Family Medicine | DX: H91.93 Unspecified hearing loss, bilateral (principal) | CPT/HCPCS: 99199 ==

== ENCOUNTER 2024-09-06 14:09 | Outpatient (CLI) | payer MEDICARE, SELFPAY ==
--- NOTE | ~2024-09-06 | CT_ITS ---
EXAMINATION: CT IAC/mastoids BI wo con DATE: 09/06/2024 14:30 INDICATION: Bilateral otitis media and chronic mastoiditis TECHNIQUE: Computed tomography (CT) of the temporal bones was performed without intravenous contrast. The dose-length product was 522.12 mGy-cm. COMPARISON: Head CT dated 09/10/2015 FINDINGS: Mild/moderate age-appropriate diffuse volume loss in the visualized brain. Changes of bilat eral intraocular lens replacement. Paranasal sinuses are clear. RIGHT TEMPORAL BONE: Myringotomy tube extending across the tympanic membrane. There is soft tissue versus fluid along the deep margin of the posterior superior aspect of the tympanic membrane, extending between the normal a ppearing ossicles and scutum which partially occupies Prussak space as well as seen more anteriorly i n the middle ear cavity. There is a large mastoid effusion. The oval window, vestibule, cochlea, semi circular canals, internal auditory canal, vestibular aqueduct and course of the facial nerve are norm al. The jugular bulb is unremarkable. There is mild skin thickening along the periphery of the reagent tender al auditory canal LEFT TEMPORAL BONE: Myringotomy tube extending across the tympanic membrane. There is soft tissue versus fluid along the deep margin of the tympanic membrane, extending between the normal appearing ossicles and scutum. Thi s fills Prussak space as well as extends over the entrance to the oval window. There is a moderate to large mastoid effusion. The vestibule, cochlea, semicircular canals, internal auditory canal, vestib ular aqueduct and course of the facial nerve are normal. The jugular bulb is unremarkable. There is m oderate skin thickening along the periphery of the external auditory canal. IMPRESSION: 1. Moderate to large bilateral mastoid effusions with soft tissue versus more likely fluid within the bilateral middle ear cavities as detailed above consistent with otomastoiditis. 2. Bilateral myringotomy tubes. Reviewed, dictated and finalized at location A. IMPRESSION: 1. Moderate to large bilateral mastoid effusions with soft tissue versus more l ikely fluid within the bilateral middle ear cavities as detailed above consiste nt with otomastoiditis. 2. Bilateral myringotomy tubes.
--- OUTSIDE RECORDS SUMMARY | 2024-09-06 14:13 | XMS_ITS | Clinical Summary ---
Author Organization [facility] Address [address] [place] [id number] Care Team Providers Care Gyroscopic Instrument Mechanic Name Role Phone Caleb Oconnor MD Unavailable Unavailable Thad Oleary PA-C Unavailable [phone] Mohit Kat MD Primary Care Provider [phone] Allergies No known active allergies Medications traMADol 50 MG tablet Take 1 tablet by mouth as needed. 4 09/14/2015 Active apixaban 5 MG tablet Take 5 mg by mouth 2 (two) times daily. Active simvastatin 40 MG tablet Take 1 tablet (40 mg total) by mouth nightly at bedtime. 90 tablet 3 11/05/2015 Active escitalopram 20 MG tablet Take 1 tablet by mouth daily. 3 10/06/2016 Active Ubiquinol 200 MG Cap Take 200 mg by mouth daily. Active cholecalciferol (VITAMIN D3) 5000 units Tab Take 5,000 Units by mouth daily. Active carvedilol 25 MG tablet Take 0.5 tablets (12.5 mg total) by mouth 2 (two) times daily. 60 tablet 3 06/01/2018 Active Active Problems Problem Noted Date Diagnosed Date S/P ablation of atrial fibrillation 01/10/2020 S/P ablation of atrial flutter 01/10/2020 Coronary artery disease 10/03/2015 Sleep apnea with use of cont inuous positive airway pressure (CPAP) 10/03/2015 Hyperlipidemia 10/03/2015 Persistent atrial fibrillation ([facility]) 10/03/2015 Atrial flutter ([facility]) Essential hypertension Family History Medical History Relation Comments Heart Attack Father Open Heart Mother Relation Status Comments Brother Alive Father Maternal Grandfather Maternal Grandmother Mother Alive Paternal Grandfather Paternal Grandmother Sister Alive Social History Tobacco Use Types Packs/Day Years Used Date Smoking Tobacco: Former Cigarettes Q uit: 2009 Smokeless Tobacco: Never Alcohol Use Standard Drinks/Week Comments No 14 (1 standard drink = 0.6 oz pu re alcohol) Rare social use Sex and Gender Information Value Date Recorded Sex Assigned at Not on file Legal Sex Male 11:42 PM CDT Gender Identity Not on file Sexual Orientation Not on file Occupation Industry Job Start Date Job End Date Not on file Not on file Not on file Not on file Not on file Not on file Not on file Not on file Last Filed Vital Signs Vital Sign Reading Time Taken Comments Blood Pressure 160/80 01/10/2020 2:49 PM CONFIGURATION MANAGEMENT ADVISOR Pulse 50 01/10/2020 2:49 PM CONFIGURATION MANAGEMENT ADVISOR EKG Temperature - - Respiratory Rate 20 01/10/2020 2:49 PM CONFIGURATION MANAGEMENT ADVISOR Oxygen Saturation - - Inhaled Oxygen Concentration - - Weight 128.6 kg (283 lb 9.6 oz) 01/10/2020 2:49 PM CONFIGURATION MANAGEMENT ADVISOR Height 185.4 cm (6' 1) 01/10/2020 2:49 PM CONFIGURATION MANAGEMENT ADVISOR Body Mass Index 37.42 01/10/2020 2:49 PM CONFIGURATION MANAGEMENT ADVISOR Plan of Treatment Health Maintenance Due Date Last Done Comments ASCVD LDL 1945 ASCVD Statin 1945 Hepatitis C 1964 DTaP, Tdap and Td Vaccines ( 1 - Tdap) 1965 Pneumococcal Vaccine: 50+ Ye ars (1 of 2 - PCV) 1965 Zoster Vaccines (1 of 2) 1996 Annual Medicare Wellness Visit 08/30/2011 RSV Immunization or 60+ Years (1 - 1-dose 75+ series) 2021 COVID-19 Vaccine (2023-2 5 season) 2023 Meningococcal B Vaccine Aged Out No l onger eligible based on patient's age to complete this topic Meningococcal Vaccine Aged Out No lynn joel eligible based on patient's age to complete this topic RSV Immunizations Under 20 Months Aged Out No longer eligible based on patient's age to complete this topic Insurance MEDICARE MEDICARE [facility] Care Teams Gyroscopic Instrument Mechanic Relationship Specialty Start Date End Date Mohit Kat MD [address] [place] [address] [address] [place] [address] PCP - General FAMILY PRACTICE 01/10/20 Caleb Oconnor MD EP [facility] CLINICAL CARDIAC ELECTROPHYSIOLOGY 10/03/15 Thad Oleary PA-C [address] [place] [address] Electrophysiology 06/13/16
--- OUTSIDE RECORDS SUMMARY | 2024-09-06 14:13 | XMS_ITS | Referral Summary ---
Author Organization [facility] [place] [address] Address [address] [place] [address] Care Team Providers Care Authorization Rep Name Role Phone No, Physician Primary Care Provider [phone] Encounters Date Type Department Care Team Description 08/30/2024 2:30 PM CDT Office Visit [facility] Cardiology at [address] [place] [address] Johnny Shah MD Paroxysmal atrial fibrillation (HCC) (Primary Dx); Coronary artery disease involving [place] coronary artery of [place] heart without angina pectoris; Severe obesity (HCC); Body mass index 40.0-44.9, adult (CMS/HCC) (HCC) from Last 3 Months Allergies Active Allergy Reactions Criticality Noted Date Comments Lisinopril-Hydrochlorothiazide Hypotension High 02/23 Medications cyanocobalamin (vitamin B-12) 1,000 mcg tabletIndication s:Prevention of Vitamin B12 Deficiency Take 1 tablet (1,000 mcg total) by mouth daily 90 tablet 1 12/12/19 22 Active cholecalciferol (VITAMIN D-3) 5,000 unit tablet Take 1 tablet (5,000 Units total) by mouth daily Active carvediloL (COREG) 6.25 mg tablet Take 1 tablet (6.25 mg total) by mouth 2 (two) times a day with meals 60 tablet 11 02/21/20 23 026 Active Eliquis 5 mg tabletIndication s:Paroxysmal atrial fibrillation (HCC) TAKE 1 TABLET(5 MG) BY MOUTH TWICE DAILY 180 tablet 09/10/19 24 Active escitalopram (LEXAPRO) 20 mg tabletIndication s:Moderate episode of recurrent major depressive disorder (HCC) TAKE 1 TABLET(20 MG) BY MOUTH DAILY 90 tablet 12/11/19 24 Active atorvastatin (LIPITOR) 80 mg tablet TAKE 1 TABLET(80 MG) BY MOUTH EVERY NIGHT 30 tablet 2 12/11/19 24 Active irbesartan (AVAPRO) 150 mg tablet Take 1 tablet (150 mg total) by mouth nightly Active amiodarone (PACERONE) 100 mg tablet Take 1 tablet (100 mg total) by mouth daily Active Allergy Relief, fexofenadine, 180 mg tablet Take 1 tablet (180 mg total) by mouth daily 06/16/19 25 Active coQ10, ubiquinol, 200 mg capsule Take 200 mg by mouth daily. 025 Discontinued Vitamin B-1, mononitrate, 100 mg tablet Take 1 tablet (100 mg total) by mouth every morning 08/17/19 21 023 Discontinued folic acid (FOLVITE) 1 mg tablet TAKE 1 TABLET(1 MG) BY MOUTH DAILY 90 tablet 1 05/14/19 24 025 Discontinued aspirin 81 mg chewable tablet CHEW AND SWALLOW 1 TABLET(81 MG) BY MOUTH DAILY 90 tablet 1 05/14/19 24 025 Discontinued losartan (COZAAR) 100 mg tablet TAKE 1 TABLET(100 MG) BY MOUTH DAILY 30 tablet 10/14/19 24 025 Discontinued furosemide (LASIX) 40 mg tablet TAKE 1 TABLET(40 MG) BY MOUTH DAILY 90 tablet 11/24/19 24 025 Discontinued amiodarone (PACERONE) 200 mg tablet TAKE 1 TABLET(200 MG) BY MOUTH DAILY 90 tablet 11/24/19 24 025 Discontinued Active Problems Problem Noted Date Diagnosed Date Severe obesity 08/30/2024 Atypical atrial flutter 04/02/2023 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) 12/19 Assessment & Plan (12/19/2022 4:09 PM CDT): - rec healthy diet and regular exercise Impaired hearing 12/19/2022 Assessment & Plan (12/19/2022 4:10 PM CDT): - ref to ENT for evaluation Bradycardia 12/19/2022 Assessment & Plan (12/19/2022 4:10 PM CDT): - HR improved on EKG compared to vitals at intake - pt asx - EKG shows only bradycardia - will check labs to ensure normal TSH - if normal labs and pt remains asx then rec reg f/u with cardiology Intractable pain 06/01/2022 Closed fracture of multiple ribs of both sides 0 06/01/2022 Assessment & Plan (06/06/2022 12:06 PM CDT): - stable - continue current medication Chronic fatigue 06/01/2022 Chronic swimmer's ear of left side 01/10/2022 Assessment & Plan (01/10/2022 10:46 AM TRANSIT VEHICLE INSPECTOR): - uncontrolled - tx with ciprodex otic Encounter for annual wellness exam in Medicare p atient 01/10/2022 Assessment & Plan (01/10/2022 10:47 AM TRANSIT VEHICLE INSPECTOR): - Reviewed with the patient BMI, blood pressure, diet, exercise, and encouraged healthy lifestyle choices. - Screened for high risk behaviors, diet and exercise habits, and symptoms of depression. - reviewed screening labs - encouraged regular exercise and weight loss and decreased ETOH use Morbid (severe) obesity due to excess calories 1 Assessment & Plan (12/19/2022 4:10 PM CDT): - rec healthy diet and regular exercise ETOH abuse 12/11/2021 Assessment & Plan (03/07/2022 10:18 AM TRANSIT VEHICLE INSPECTOR): - encouraged pt to continue to decrease his ETOH use Assessment & Plan (01/10/2022 10:45 AM TRANSIT VEHICLE INSPECTOR): - encouraged pt to decrease ETOH use Assessment & Plan (12/11/2021 9:15 AM CDT): - encouraged pt to decrease ETOH use - check labs Moderate episode of recurrent major depressive d isorder 12/11/2021 Assessment & Plan (01/23/2023 2:49 PM TRANSIT VEHICLE INSPECTOR): - stable - continue current medication Assessment & Plan (12/19/2022 4:09 PM CDT): - stable - continue current medication Assessment & Plan (06/06/2022 12:06 PM CDT): - stable - continue current medication Assessment & Plan (03/07/2022 10:18 AM TRANSIT VEHICLE INSPECTOR): - stable - continue current medication Assessment & Plan (01/10/2022 10:45 AM TRANSIT VEHICLE INSPECTOR): - stable - continue current medication Assessment & Plan (12/11/2021 9:15 AM CDT): - stable - continue current medication Essential hypertension 12/11/2021 Assessment & Plan (01/23/2023 2:49 PM TRANSIT VEHICLE INSPECTOR): - stable - continue current medication Assessment & Plan (12/19/2022 1:58 PM CDT): - uncontrolled - continue losartan and amlodipine - f/u in 1 mo for recheck of BP Assessment & Plan (06/06/2022 12:06 PM CDT): - stable - continue current medication Assessment & Plan (03/07/2022 10:19 AM TRANSIT VEHICLE INSPECTOR): - BP high today - continue current medication - pt to work on diet and exercise for 3 mo - f/u in 3 mo Assessment & Plan (01/10/2022 10:46 AM TRANSIT VEHICLE INSPECTOR): - uncontrolled - add lisinopril/HCTZ 20/25mg daily - f/u in 3 mo Assessment & Plan (12/11/2021 9:15 AM CDT): - stable but BP elevated today - continue current medication - f/u in 1 mo for recheck of BP, if high will add medication Chronic right-sided low back pain without sciati ca 12/11/2021 CAD (coronary artery disease) 10/07/2016 Assessment & Plan (12/19/2022 4:08 PM CDT): - stable - continue current medication Assessment & Plan (06/06/2022 12:06 PM CDT): - stable - continue current medication Assessment & Plan (01/10/2022 10:45 AM TRANSIT VEHICLE INSPECTOR): - stable - continue current medication Assessment & Plan (12/11/2021 9:14 AM CDT): - stable - continue current medication - ref to cardiology for eval Paroxysmal atrial fibrillation 10/07/2016 Assessment & Plan (01/23/2023 2:49 PM TRANSIT VEHICLE INSPECTOR): - stable - continue current medication Assessment & Plan (12/19/2022 4:09 PM CDT): - stable - continue current medication Assessment & Plan (06/06/2022 12:06 PM CDT): - stable - continue current medication Assessment & Plan (03/07/2022 10:18 AM TRANSIT VEHICLE INSPECTOR): - stable - continue current medication Assessment & Plan (01/10/2022 10:45 AM TRANSIT VEHICLE INSPECTOR): - stable - continue current medication Assessment & Plan (12/11/2021 9:16 AM CDT): - stable - continue current medication Pure hypercholesterolemia Assessment & Plan (01/23/2023 2:49 PM TRANSIT VEHICLE INSPECTOR): - stable - continue current medication Assessment & Plan (12/19/2022 4:09 PM CDT): - stable - continue current medication Assessment & Plan (06/06/2022 12:06 PM CDT): - stable - continue current medication Assessment & Plan (03/07/2022 10:19 AM TRANSIT VEHICLE INSPECTOR): - stable - continue current medication Resolved Problems Problem Noted Date Diagnosed Date Resolved Date Atrial fibrillation with rap id ventricular response 01/09/2023 01/21/2023 Atrial fibrillation with rap id ventricular response 01/21/2022 12/19/2022 Immunizations Immunization Administration Dates Next Due Influenza, Quad, Adjuvantate d, Intramuscular 11/28/2019 Influenza, Quadrivalent, Hig h Dose, Preservative Free, Intrr 01/23/2023,12/11/2021 Influenza, Trivalent, High D ose, Split, Preservative Free, Intramuscular 01/06/2019,01/03/2018,12/29/2017,12/05,10/26/2013 Influenza, Trivalent, Preser vative Free, Intramuscular 11/20/2014 Influenza, Unspecified 11/23/2020 Pneumococcal Conjugate Pcv20 01/23/2023 Social History Tobacco Use Types Packs/Day Years Used Date Smoking Tobacco: Former Cigarettes Smokeless Tobacco: Never Tobacco Cessation:Counseling Given: Not Answered Alcohol Use Standard Drinks/Week Comments No 0 (1 standard drink = 0.6 oz pur e alcohol) [facility] Utilities Answer Date Recorded In the past 12 months has [facility] [employer] [facility]), gas, oil, or water company threatened to shut off services in your home? No 01/12/2023 Social Connection and Isolat ion Panel [NHANES] Answer Date Recorded In a typical week, how many times do you talk on the phone with family, friends, or neighbors? More than three times a week 01/12/2023 How often do you get togethe r with friends or relatives? Three times a week 01/12/2023 How often do you attend [facility] or uatsdin services? Never 01/12/2023 Do you belong to any clubs o r organizations such as religious groups, unions, fraternal or athletic groups, or school groups? No 01/12/2023 How often do you attend meet ings of the clubs or organizations you belong to? Never 01/12/2023 Are you , , di vorced, , never , or living with a partner? 01/12/2023 AUDIT-C Answer Date Recorded Q1: How often do you have a drink containing alcohol? 4 or more times a week 12/11/2021 Q2: How many drinks containi ng alcohol do you have on a typical day when you are drinking? 7 to 9 Q3: How often do you have si x or more drinks on one occasion? Weekly 12/11/2021 Overall Financial Resource Strain (CARDIA) Answe r Date Recorded How hard is it for you to pa y for the very basics like food, housing, medical care, and heating? Somewhat hard 01/12/2023 PHQ-2 Answer Date Recorded PHQ-2 Total Score (If total score is 3 or more points, staff should administer the PHQ-9) 0 01/23/2023 Hunger Vital Sign Answer Date Recorded Within the past 12 months, y ou worried that your food would run out before you got the money to buy more. Never true 01/13/20 23 Within the past 12 months, t he food you bought just didn't last and you didn't have money to get more. Never true 01/12/2023 PRAPARE - Transportation Answer Date Re corded In the past 12 months, has l ack of transportation kept you from medical appointments or from getting medications? No 12/25 In the past 12 months, has l ack of transportation kept you from meetings, work, or from getting things needed for daily living? No 01/12/2023 Housing Stability Vital Sign Answer Billy e Recorded In the last 12 months, was t here a time when you were not able to pay the mortgage or rent on time? No 01/12/2023 In the last 12 months, how many places have you lived? 1 01/12/2023 In the last 12 months, was t here a time when you did not have a steady place to sleep or slept in a penitentiary (including now)? No 01/12/2023 Personal Safety Answer Date Recorded Have you ever been in or are you currently in a harmful physical or emotional relationship or is someone making you feel afraid or unsafe? 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 TRANSIT VEHICLE INSPECTOR Gender Identity Not on file Sexual Orientation Not on file Last Filed Vital Signs Vital Sign Reading Time Taken Comments Blood Pressure 136/82 08/30/2024 2:23 PM CDT Pulse 63 08/30/2024 2:23 PM CDT Temperature 36 C (96.8 F) 01/23/2023 2:14 PM TRANSIT VEHICLE INSPECTOR Respiratory Rate 16 01/23/2023 2:14 PM TRANSIT VEHICLE INSPECTOR Oxygen Saturation 96% 08/30/2024 2:23 PM CDT Inhaled Oxygen Concentration - - Weight 147 kg (324 lb) 08/30/2024 2:23 PM CDT Height 188 cm (6' 2) 08/30/2024 2:23 PM CDT Body Mass Index 41.6 08/30/2024 2:23 PM CDT Plan of Treatment Not on file Medical Devices Implanted Type Area Elevator Serviceman Device Identifier Shelf Expiration Date Model / Serial / Lot Andrzej Hip Description:Andrzej Implant (Hip ) Procedures Procedure Name Priority Date/Time Associated Diagnosis Comments ECG 12-LEAD Routine 08/30/2024 2:16 PM CDT Paroxysmal atrial fibrillation (HCC) from Last 3 Months Results * ECG 12 lead (08/30/2024 2:16 PM CDT) Johnny Shah MD ECG ORDERABLES Final Re sult from Last 3 Months Insurance [facility] [employer] MEDICARE HMO Advance Directives For more information, please contact: [phone] Documents on File Type Date Recorded Patient Laborer Rags Expl anation ADVANCE DIRECTIVE 06/02/2022 2:41 PM Power of Teletype Operator-Medical * Full Code (Latest Code Status on File) Date Activated Date Inactivated Comments 01/09/2023 4:03 PM 01/12/2023 5:38 PM * Full Code Date Activated Date Inactivated Comments 01/09/2023 1:45 PM 01/09/2023 4:03 PM * Full Code Date Activated Date Inactivated Comments 06/01/2022 11:34 AM 06/05/2022 8:27 PM * Full Code Date Activated Date Inactivated Comments 01/21/2022 4:12 PM 01/23/2022 6:32 PM Care Teams Authorization Rep Relationship Specialty Start Date End Date No, Physician PCP - General 10/21/23
--- OUTSIDE RECORDS SUMMARY | 2024-09-06 14:13 | XMS_ITS | Clinical Summary ---
Author Organization [facility] [place] [address] Address [address] [place] [address] Care Team Providers Care Wood Grainer Name Role Phone No, Physician Primary Care Provider [phone] Allergies Active Allergy Reactions Criticality Noted Date [...] mg total) by mouth every morning 08/17/19 023 Discontinued folic acid (FOLVITE) 1 mg [...] Severe obesity 08/30/2024 Atypical atrial flutter 04/02/2023 detention current use of anticoagulant 4 High risk medication use 04/02/2023 PVC (premature ventricular contraction) 04/02/19 24 Alcohol dependence 01/09/2023 Depression 01/09/2023 Assessment & Plan (01/23/2023 2:49 PM MIDDLE SCHOOL DIRECTOR): - stable - continue current medication Body mass index 40.0-44.9, adult ([facility]) 12/19 Assessment & Plan (12/19/2022 4:09 PM [...] 01/10/2022 Assessment & Plan (01/10/2022 10:46 AM MIDDLE SCHOOL DIRECTOR): - uncontrolled - tx with ciprodex otic Encounter for annual wellness exam in Medicare p atient 01/10/2022 Assessment & Plan (01/10/2022 10:47 AM MIDDLE SCHOOL DIRECTOR): - Reviewed with the patient BMI, blood [...] 12/11/2021 Assessment & Plan (03/07/2022 10:18 AM MIDDLE SCHOOL DIRECTOR): - encouraged pt to continue to decrease his ETOH use Assessment & Plan (01/10/2022 10:45 AM MIDDLE SCHOOL DIRECTOR): - encouraged pt to decrease ETOH use Assessment & Plan (12/11/2021 9:15 AM CDT): - encouraged pt to decrease ETOH use - check labs Moderate episode of recurrent major depressive d isorder 12/11/2021 Assessment & Plan (01/23/2023 2:49 PM MIDDLE SCHOOL DIRECTOR): - stable - continue current medication Assessment & Plan (12/19/2022 4:09 PM CDT): - stable - continue current medication Assessment & Plan (06/06/2022 12:06 PM CDT): - stable - continue current medication Assessment & Plan (03/07/2022 10:18 AM MIDDLE SCHOOL DIRECTOR): - stable - continue current medication Assessment & Plan (01/10/2022 10:45 AM MIDDLE SCHOOL DIRECTOR): - stable - continue current medication Assessment & Plan (12/11/2021 9:15 AM CDT): - stable - continue current medication Essential hypertension 12/11/2021 Assessment & Plan (01/23/2023 2:49 PM MIDDLE SCHOOL DIRECTOR): - stable - continue current medication Assessment & Plan (12/19/2022 1:58 PM CDT): - uncontrolled - continue losartan and amlodipine - f/u in 1 mo for recheck of BP Assessment & Plan (06/06/2022 12:06 PM CDT): - stable - continue current medication Assessment & Plan (03/07/2022 10:19 AM MIDDLE SCHOOL DIRECTOR): - BP high today - continue current medication - pt to work on diet and exercise for 3 mo - f/u in 3 mo Assessment & Plan (01/10/2022 10:46 AM MIDDLE SCHOOL DIRECTOR): - uncontrolled - add lisinopril/HCTZ 20/25mg daily [...] medication Assessment & Plan (01/10/2022 10:45 AM MIDDLE SCHOOL DIRECTOR): - stable - continue current medication Assessment & Plan (12/11/2021 9:14 AM CDT): - stable - continue current medication - ref to cardiology for eval Paroxysmal atrial fibrillation 10/07/2016 Assessment & Plan (01/23/2023 2:49 PM MIDDLE SCHOOL DIRECTOR): - stable - continue current medication Assessment & Plan (12/19/2022 4:09 PM CDT): - stable - continue current medication Assessment & Plan (06/06/2022 12:06 PM CDT): - stable - continue current medication Assessment & Plan (03/07/2022 10:18 AM MIDDLE SCHOOL DIRECTOR): - stable - continue current medication Assessment & Plan (01/10/2022 10:45 AM MIDDLE SCHOOL DIRECTOR): - stable - continue current medication Assessment & Plan (12/11/2021 9:16 AM CDT): - stable - continue current medication Pure hypercholesterolemia Assessment & Plan (01/23/2023 2:49 PM MIDDLE SCHOOL DIRECTOR): - stable - continue current medication Assessment & Plan (12/19/2022 4:09 PM CDT): - stable - continue current medication Assessment & Plan (06/06/2022 12:06 PM CDT): - stable - continue current medication Assessment & Plan (03/07/2022 10:19 AM MIDDLE SCHOOL DIRECTOR): - stable - continue current medication Resolved Problems Problem Noted Date Diagnosed Date Resolved Date Atrial fibrillation with rap id ventricular response 01/09/2023 01/21/2023 Atrial fibrillation with rap id ventricular response 01/21/2022 12/19/2022 Encounters Date Type Department Care Team Description 08/30/2024 2:30 PM CDT Office Visit [facility] Cardiology at [address] [address] Johnny Shah MD Paroxysmal atrial fibrillation (HCC) (Primary Dx); Coronary artery disease involving [place] coronary artery of [place] heart without angina pectoris; Severe obesity (HCC); Body mass index 40.0-44.9, adult (CMS/HCC) (HCC) from Last 3 Months Immunizations Immunization Administration Dates Next Due Influenza, Quad, Adjuvantate d, Intramuscular 11/28/2019 Influenza, Quadrivalent, Hig h Dose, Preservative Free, Intrr 01/23/2023,12/11/2021 Influenza, Trivalent, High D ose, Split, Preservative Free, Intramuscular 01/06/2019,01/03/2018,12/29/2017,12/05,10/26/2013 Influenza, Trivalent, Preser vative Free, Intramuscular 11/20/2014 Influenza, Unspecified 11/23/2020 Pneumococcal Conjugate Pcv20 01/23/2023 Surgical History Surgery Date Site/Laterality Comments CARDIAC CATHETERIZATION APPENDECTOMY FRACTURE SURGERY CATARACT EXTRACTION Medical History Medical History Date Comments Hypertension Hypertension Hx Other Medical Arrhythmias par oxysmal atrial fibrillation Alcoholism (HCC) Alcoholism Arrhythmia a-fib Depression Rheumatic fever Sleep apnea Heart disease Mixed conductive and sensori neural hearing loss Alcohol abuse Family History Medical History Relation Name Comments Alcohol abuse Father elicia kent Dementia Mother Relation Name Status Comments Father elicia kent (Age 57) Mother (Age 93) Social History Tobacco Use Types Packs/Day Years Used Date Smoking Tobacco: Former Cigarettes Smokeless Tobacco: Never Tobacco Cessation:Counseling Given: Not Answered Alcohol Use Standard Drinks/Week Comments No 0 (1 standard drink = 0.6 oz pur e alcohol) [facility] Utilities Answer Date Recorded In the past 12 months has th e electric, gas, oil, or water company threatened to [...] week 01/12/2023 How often do you attend chur ch or zoroastrian services? Never 01/12/2023 Do you belong to any clubs o r organizations such as amish groups, unions, fraternal or athletic groups, or [...] place to sleep or slept in a assisted (including now)? No 01/12/2023 Personal Safety Answer Date Recorded Have you ever been in or are you currently in a harmful physical or emotional relationship or is someone making you feel afraid or unsafe? 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 MIDDLE SCHOOL DIRECTOR Gender Identity Not on file Sexual Orientation Not on file Obstetrics History Last Filed Vital Signs Vital Sign Reading Time Taken Comments Blood Pressure 136/82 08/30/2024 2:23 PM CDT Pulse 63 08/30/2024 2:23 PM CDT Temperature 36 C (96.8 F) 01/23/2023 2:14 PM MIDDLE SCHOOL DIRECTOR Respiratory Rate 16 01/23/2023 2:14 PM MIDDLE SCHOOL DIRECTOR Oxygen Saturation 96% 08/30/2024 2:23 PM CDT Inhaled Oxygen Concentration - - Weight 147 kg (324 lb) 08/30/2024 2:23 PM CDT Height 188 cm (6' 2) 08/30/2024 2:23 PM CDT Body Mass Index 41.6 08/30/2024 2:23 PM CDT Plan of Treatment Health Maintenance Due Date Last Done Comments Hepatitis C Screening 1945 DTaP/Tdap/Td Vaccine (1 - Tdap) 1957 Hepatitis B Screening 1964 Zoster Vaccine (1 of 2) 1996 Abdominal Aortic Aneurysm (A AA) Screen 08/30/2011 Well Visit 65+ 01/10/2023 01/10/2022 Covid-19 Vaccine (3 - 2023-2 5 season) 2023 09/25/2020, 08/28/2020 Depression Screening 01/24/2024 01/23/2023, 01/10/2022, 12/11/2021 Fall Risk Assessment 01/24/2024 01/23/2023, 01/12/2023, 01/10/2022, Additional history exists Influenza Vaccine (#1) 2024 , 12/11/2021, 11/23/2020, Additional history exists Pneumococcal vaccine 65+ Completed 01/23/2023 Medical Devices Implanted Type Area Patient Services Representative Device Identifier Shelf Expiration Date Model / Serial / Lot Andrzej Hip Description:Andrzej Implant (Hip ) Procedures Procedure Name Priority Date/Time Associated Diagnosis Comments ECG 12-LEAD Routine 08/30/2024 2:16 PM CDT Paroxysmal atrial fibrillation (HCC) from Last 3 Months Results * ECG 12 lead (08/30/2024 2:16 PM CDT) us Johnny Shah MD ECG ORDERABLES Final Re sult from Last 3 Months Insurance [facility] [employer]NA MEDICARE HMO Advance Directives For more information, please contact: [phone] Documents on File Type Date Recorded Patient Claims Manager Expl anation ADVANCE DIRECTIVE 06/02/2022 2:41 PM Power of Cube Machine Tender-Medical * Full Code (Latest Code Status on File) Date Activated Date Inactivated Comments 01/09/2023 4:03 PM 01/12/2023 5:38 PM * Full Code Date Activated Date Inactivated Comments 01/09/2023 1:45 PM 01/09/2023 4:03 PM * Full Code Date Activated Date Inactivated Comments 06/01/2022 11:34 AM 06/05/2022 8:27 PM * Full Code Date Activated Date Inactivated Comments 01/21/2022 4:12 PM 01/23/2022 6:32 PM Care Teams Wood Grainer Relationship Specialty Start Date End Date No, Physician PCP - General 10/21/23
--- OUTSIDE RECORDS SUMMARY | 2024-09-06 14:13 | XMS_ITS | Encounter Summary ---
Author Organization [facility] Address [facility] [place] [address] Care Team Providers Care Binder Stripper Machine Name Role Phone Mohit Kat MD Primary Care Provider [phone] Caleb Oconnor MD Unavailable Unavailable Thad Oleary PA-C Unavailable [phone] Oscar Rowell MD Primary Care Provider [phone] Mohit Kat MD Primary Care Provider [phone] Encounter Details Date Type Department Care Team (Late st Contact Info) Description 08/03/2015 Abstract [facility] [address] [place] [address] Caleb Oconnor MD Social History Tobacco Use Types Packs/Day Years Used Date Smoking Tobacco: Former Alcohol Use Standard Drinks/Week Comments Yes 14 (1 standard drink = 0.6 oz pure alcohol) Drinks hard liquor or wine, 2-3 drinks every day. Sex and Gender Information Value Date Recorded Sex Assigned at Not on file Legal Sex Male 11:42 PM CDT Gender Identity Not on file Sexual Orientation Not on file Occupation Industry Job Start Date Job End Date Not on file Not on file Not on file Not on file documented as of this encounter Plan of Treatment Not on file documented as of this encounter Visit Diagnoses Not on filedocumented in this encounter Care Teams Binder Stripper Machine Relationship Specialty Start Date End Date Mohit Kat MD PCP - General FAMILY PRACTICE 09/17/15 05/31/18 Oscar Rowell MD [address] [place] [address] PCP - General FAMILY PRACTICE 06/01/18 01/09/20 Mohit Kat MD [address] [place] [id number] PCP - General FAMILY PRACTICE 01/10/20 Caleb Oconnor MD EP Metal Numerical Control Programmer CLINICAL CARDIAC ELECTROPHYSIOLOGY 10/03/15 Thad Oleary PA-C [address] [place] [address] Electrophysiology 06/13/16 documented as of this encounter
--- OUTSIDE RECORDS SUMMARY | 2024-09-06 14:13 | XMS_ITS | Encounter Summary ---
Author Organization [facility] Healthcare Address [address] [place] [address] Care Team Providers Care Retirement Village Manager Name Role Phone Ish Falcon MD Primary Care Provider + No, Physician Primary Care Provider [phone] Encounter Details Date Type Department Care Team ([facility] st Contact Info) Description 01/23/2023 [facility] Initial Outreach [facility] [address] [place] [id number] Shahid Schumacher, JOSE MANUEL Social History Tobacco Use Types Packs/Day Years Used Date Smoking Tobacco: Former Cigarettes Smokeless Tobacco: Never Alcohol Use Standard Drinks/Week Comments No 0 (1 standard drink = 0.6 oz pur e alcohol) [facility] Utilities Answer Date Recorded In the past 12 months has e electric, gas, oil, or water company [...] often do you attend chur ch or mandaen services? Never 01/12/2023 Do you belong to any clubs o r organizations such as alevism groups, unions, fraternal or athletic groups, or [...] place to sleep or slept in a detention (including now)? No 01/12/2023 Personal Safety Answer Date Recorded Have you ever been in or are you currently in a harmful physical or emotional relationship or is someone making you feel afraid or unsafe? 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
== END 2024-09-06 14:10 | disposition home or self-care (01) ==
PROVIDERS: PCP Family Medicine; Visit Provider Otolaryngology
DX: H74.8X3 Other specified disorders of middle ear and mastoid, bilateral (principal); H70.13 Chronic mastoiditis, bilateral; H66.93 Otitis media, unspecified, bilateral; Z96.22 Myringotomy tube(s) status
CPT/HCPCS: 70480

== ENCOUNTER 2025-01-18 07:45 | Emergency (ER) | payer MEDICARE, SELFPAY ==
[2025-01-18] VITALS (16 sets, daily range): BP systolic 143–186; BP diastolic 47–79; PULSE 44–60; RESP 10–20; TEMP 36.4; O2SAT 93–100
--- NOTE | ~2025-01-18 | XR_ITS ---
Examination: XR wrist RT min 3V Clinical History: Fall Comparison: None Technique: 3 views right wrist Findings/impression: 1. Fractures along base of fourth and fifth metacarpals. 2. No fracture or dislocation right wrist. 3. Severe degenerative changes basal joint of thumb. Reviewed, dictated and finalized at location R. GRINDER TENDER
--- NOTE | ~2025-01-18 | CT_ITS ---
CT HEAD NON-CONTRAST Clinical History: Fall on thinners Comparison: None Technique: Unenhanced axial images skull base to vertex Coronal, sagittal reformats CT images acquired with automatic exposure control for dose reduction DLP: 605 mGy-cm Findings: Age-related atrophy. Sulci, ventricles: Unremarkable. No intracerebral hemorrhage. No evidence acute territorial infarct. No mass effect, midline shift. Bony calvarium intact. Visualized paranasal sinuses: Clear. Mastoid air cells: Bilateral opacification. IMPRESSION: 1. No acute intracranial findings. 2. Bilateral mastoiditis. Reviewed, dictated and finalized at location R. BROILER OR FRY
--- NOTE | ~2025-01-18 | CT_ITS ---
EXAMINATION: CT UE RT w con COMPARISON: None HISTORY: Hand fracture hemorrhagic blisters TECHNIQUE: Axial images were obtained with intravenous IV contrast. Sagittal, coronal reconstruction images were obtained from the axial views. CT scan performed using dose optimization techniques including the following automated exposure control; adjustment of mA and/or kV; use of iterative reconstruction technique. Automatic exposure control was used to reduce radiation dose. Permanent radiation dose record is archived to PACS. FINDINGS: There are severe degenerative changes noted of the distal scaphoid articulations with subchondral sclerosis and cyst formation. There are severe degenerative changes of the first metacarpal carpal joint with narrowing of the joint space and fragmentation. There is a nondisplaced fracture of the proximal 4 metacarpal with intra-articular extension. There is a nondisplaced fracture of the proximal fifth metacarpal with intra-articular extension. There are posttraumatic changes noted surrounding the fractures however there is no intramuscular hemorrhage demonstrated. There is no rim-enhancing fluid collection identified. Nonspecific. Subcutaneous blisters are noted along the dorsal aspect etiology unclear with stranding in the adjacent subcutaneous tissues noted overlying the second, third and fourth digits. IMPRESSION: Fractures of the proximal fourth and fifth metacarpal detailed above with intra-articular extension. Reviewed, dictated and finalized at location P. ITAL RECRUITER IMPRESSION: Fractures of the proximal fourth and fifth metacarpal detailed abov e with intra-articular extension.
--- NOTE | ~2025-01-18 | XR_ITS ---
XR chest 1V 01/18/2025 11:18 Indication: Status post fall. Chest pain. Procedure: AP view of the chest Comparison: Comparison to multiple prior studies sequentially, with oldest reviewed study dated 05/11/2015. Findings: Cardiomegaly. Mild interstitial edema. No significant effusion. No pneumothorax. Impression: 1: Cardiomegaly with mild interstitial edema. Reviewed, dictated and finalized at location O. NT ARCHITECT Impression: 1: Cardiomegaly with mild interstitial edema.
--- OUTSIDE RECORDS SUMMARY | 2025-01-18 07:49 | XMS_ITS | Encounter Summary ---
Author Organization [facility] Healthcare Address [address] [place] [address] Care Team Providers Care Side Framer Name Role Phone Mohit Kat MD Primary Care Provider [phone] Reason for Visit * Auth/Cert (Routine) Specialty Diagnoses / Procedures Referred By Contac t Referred To Contact Diagnoses Left chronic otitis media Left chronic otitis media [H66.92] Procedures TX TMPP MASTOIDECT NTC/RCNSTED CANAL WALL OCR TX GRAFT EAR CRTLG AUTOGENOUS NOSE/EAR TYMPANOPLASTY WITH MASTOIDECTOMY. TYMPANOPLASTY WITH RECONSTRUCTION OSSICULAR CHAIN. Referral ID Status Reason Start Date Expiration Date Visits Re quested Visits Authorized [id number] 1 1 Encounter Details Date Type Department Care Team (Late st Contact Info) Description 01/09/2025 Hospital Encounter [facility] Surgery Center Operating Room [address] [place] [id number] Giovanny Tran MD [address] [facility] [address] [place] [address] Social History Tobacco Use Types Packs/Day Years Used Date Smoking Tobacco: Former Cigarettes Smokeless Tobacco: Never Alcohol Use Standard Drinks/Week Comments No 0 (1 standard drink = 0.6 oz pur e alcohol) [facility] Utilities Answer Date Recorded In the past 12 months has e electric, gas, oil, or water company threatened to shut off services in your home? No 01/12/2023 Social Connection and Isolation Panel Answer Date Recorded In a typical week, how many times do you talk on the phone with family, friends, or neighbors? More than three times a week 01/12/2023 How often do you get togethe r with friends or relatives? Three times a week 01/12/2023 How often do you attend chur ch or advent services? Never 01/12/2023 Do you belong to any clubs o r organizations such as rastafarian groups, unions, fraternal or athletic groups, or school groups? No 01/12/2023 How often do you attend meet ings of the clubs or organizations you belong to? Never 01/12/2023 Are you , , di vorced, , never , or living with a partner? 01/12/2023 Overall Financial Resource Strain (CARDIA) Answe r [...] place to sleep or slept in a senior living (including now)? No 01/12/2023 AUDIT-C Answer Date Recorded Q1: How often do you have a drink containing alcohol? 4 or more times a week 01/03/2025 Average Number of Drinks Not on file 025 Q3: How often do you have si x or more drinks on one occasion? Never 01/03/2025 Personal Safety Answer Date Recorded Have you ever been in or are you currently in a harmful physical or emotional relationship or is someone making you feel afraid or unsafe? 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 OPTICAL DESIGN ENGINEER Gender Identity Not on file Sexual Orientation Not on file documented as of this encounter Last Filed Vital Signs Vital Sign Reading Time Taken Comments Blood Pressure - - Pulse - - Temperature - - Respiratory Rate - - Oxygen Saturation - - Inhaled Oxygen Concentration - - Weight 142.9 kg (315 lb) 01/03/2025 12:21 PM OPTICAL DESIGN ENGINEER Height 188 cm (6' 2) 01/03/2025 12:21 PM OPTICAL DESIGN ENGINEER Body Mass Index 40.44 01/03/2025 12:21 PM OPTICAL DESIGN ENGINEER documented in this encounter Functional Status * Alcohol Use Question Answer Date of Assessment Author Q1: How often do you have a drink containing alcohol? 4 or more times a week 01/03/2025 12:18 PM OPTICAL DESIGN ENGINEER Sruthi Chacko RN Q3: How often do you have six or more drinks on one occasion? Never 01/03/2025 12:18 PM OPTICAL DESIGN ENGINEER Luiza Chacko RN documented as of this encounter Miscellaneous Notes * Pre-Procedure Instructions - Indu Velez NP - 01/04/2025 4:20 PM CST [facility] Location: [facility] The night before your surgery: * Do not eat anything after midnight the night before your procedure. The morning of your surgery: * You may have clear liquids on your surgery day. You must stop drinking two hours before you arrive to the surgery facility. Acceptable clear liquids include water, clear sports drinks, black coffee, tea, or clear soda. DO NOT drink any milk, creamer, or alcohol. * Your surgeon's office may have provided additional instructions or restrictions. Please follow those instructions. * You may brush your teeth and rinse your mouth out. * Do not glue your dentures. * Do not wear jewelry, body piercings, makeup, hairpins, false eyelashes or contact lenses to the hospital. * Leave any valuables at home or with your family. * If you have an implantable device with a remote, bring the remote with you on the day of surgery. * If having surgery at [facility], you may want to bring a credit card if you want to use our Mobile Pharmacy for your discharge medications. Mobile pharmacy is not available at [facility], the [facility] Center, or the [facility]. Outpatient Surgery: * You must have a responsible adult drive you home and stay with you for 24 hours after your surgery * You cannot be alone at home or in a hotel * Please call your surgeon's office if you do not have someone to drive you home and/or stay with you after surgery * Please bring any items you may need to spend the night in the hospital. Sometimes patients need to be cared for in the hospital overnight. If you are a smoker: * You should prepare for your surgery and recovery well ahead of time. Stop smoking at least 2 weeks before surgery to help prevent infection and help your body recover faster. Ask your surgeon for tools to help you quit or call 1-548-LABKGPE ( ). Visit Smokefree.gov for more information. * Do not smoke during the 24 hours before surgery. If you have Sleep Apnea (DAWSON): * Bring your CPAP/BiPAP/VPAP machine to the hospital the day of your surgery * For a few days after your surgery, you will need to wear your CPAP/ BiPAP/VPAP machine any time your are sleeping. This includes when you take a nap. Instructions For Your Medications: Pre-Surgery Instructions: Medication Instructions acetaminophen (TYLENOL) 500 mg tablet Take on day of surgery if needed Allergy Relief, fexofenadine, 180 mg tablet Don't take on day of surgery amiodarone (PACERONE) 100 mg tablet Take morning of surgery atorvastatin (LIPITOR) 80 mg tablet Take the evening prior to surgery carvediloL (COREG) 6.25 mg tablet Take morning of surgery cholecalciferol (VITAMIN D-3) 5,000 unit tablet Don't take on day of surgery cyanocobalamin (vitamin B-12) 1,000 mcg tablet Don't take on day of surgery Eliquis 5 mg tablet Per surgeon's instructions escitalopram (LEXAPRO) 20 mg tablet Take morning of surgery irbesartan (AVAPRO) 150 mg tablet Don't take on day of surgery You WILL NEED TO STOP these medications prior to surgery. Your surgeon will tell you WHEN TO STOP taking them: Eliquis General Instructions For Medications: * Stop all of these medications 7 days prior to your surgery: excedrin, motrin, advil, ibuprofen, aleve, naproxen, meloxicam For medications that you are instructed to take on the morning of surgery, take the medications with a few sips of water. Stop all of these medications 7-14 days prior to your surgery: Vitamin E, Herbal medicines, Diet Pills If you have pain, you may take tylenol (acetaminophen). Do not take more than 6 tablets or 3000 mg (3 g) within a 24 period. Call your surgeon and the CPAP clinic if any of the following happens before surgery: Any changes in your health You have a fever You have any signs of an infection (chest, urinary tract or tooth) You have been to the Emergency Room or were in the hospital You have started taking any new medications If laboratory testing was completed during your visit, we will only contact you regarding any results that require you to take additional action prior to your planned procedure. CAL DESIGN ENGINEER * Pre-Procedure Instructions - Sruthi Chacko RN - 01/03/2025 12:27 PM CST [facility] ([facility]) PRE-SURGICAL NURSING INSTRUCTIONS Telephone Assessment These instructions were completed with the patient. General Information Discussed with Patient: Surgery location provided to patient. Arrival time and surgical time will be provided to the patient by their surgeon. You should wear clothing that is clean, loose, comfortable and easy to get in and out of on the dayof surgery. You should remove nail coverings, artificial nails and nail armenian prior to the day of surgery. This is to lower your risk of infection and to allow the day of surgery team to monitor your oxygen levels. You should leave your valuables and any jewelry at home. No metal or piercings are allowed in the operating room. You should bring your insurance card, a photo ID (example: Reuse Technician's License) and a method of payment for any insurance copay, deductible or copay for discharge medications. You should bring a complete, up-to-date, list of all your medications on the day of surgery, including any over the counter medications or supplements you may take. Please note on your medication list, the last date & time you took each medication. The healthcare team, on the day of surgery, will ask for this information. You should bring your Advanced Directive and/or Living Will with you on the day of surgery if you have not verified a copy is already in your Epic Chart. If you are having surgery at [facility], please arrive on the day of surgery with the name and phone number of your local 24 hour pharmacy. Due to evening discharges, your routine pharmacy may be closed. In order to obtain your prescriptions that evening, your surgeon may need to send prescriptions to this pharmacy or have you take prescriptions to this pharmacy when you are discharged. Without this information, you may not be able to obtain your prescriptions that evening. 10. If you smoke, STOP smoking at least 2 weeks before surgery to help prevent infection and help your body recover faster. Ask your surgeon for tools to help you quit or call 5-204-AIZNFOG ( ). Visit Smokefree.gov for more information. You will not have access to tobacco products, alcohol or illegal drugs during your hospital stay. Eye Surgery Process for Patients: N/A A Guide for Patients Having Surgery: Your Pathway to Excellent Care OUR GOAL IS TO PROVIDE YOU WITH EXCELLENT CARE Use this guide to learn about what you can do before, during and after surgery to help your recovery. You are the most important person on your health care team. By becoming informed and involved, you can contribute to the success of your surgery. If your surgeon's directions are different than those in this guide, talk with your nurse or surgeon to confirm the information. It is important that you understand how to take care of yourself at home after surgery. Be sure to bring this guide with you on the day of surgery and take it home with you after surgery. Write down questions for your nurse or surgeon on the last page of this booklet. Important pages to be reviewed BEFORE surgery: Page 1: QR codes for Surgery Center maps Page 3: Types of Anesthesia Page 5: Tips for the day & night before surgery Page 6: When to stop eating BEFORE surgery and examples of clear liquids Page 7-10: Preventing Infection: Chlorhexidine Gluconate (CHG) Bathing Instructions You may access A Guide for Patients Having Surgery: Your Pathway to Excellent Care by the followinglink: [email or web address] How To Prepare Your Skin For Surgery Below is the Pre-Surgical Bathing Protocol you should follow for your surgery. If your surgeon provides you different bathing instructions, please follow your surgeon's orders. Normal Bathing Protocol Bathe with your normal soap the night before and/or the morning of surgery. Wear clean clothes or pajamas to sleep in. After showering DO NOT put on deodorant, hair products, conditioners, lotions, creams, powders, Vaseline or any non-essential products. Remove nail coverings, artificial nails and nail armenian. Place clean linens on your bed the night before surgery. Shaving: You may shave your face, legs and underarms during your evening shower. Avoid shaving on the day of surgery. If you have questions, please call the CPAP Staff at [phone], Thursday-Thursday 8am-4:30pm. All patients should read the below section: Information on [facility] & the [facility] Center: Please view [email or web address] (Patient & Visitor Information) for additional details regarding Advanced Directive forms, AWARE, directions, parking information, lodging, Internet access, dining and more. Information on [facility] or [facility] Surgery Center ([facility]): Please view [email or web address] (Patient and Visitor Information) for parking, directions, lodging and more. For MyChart information, to activate account or password recovery, please go to [email or web address] or call [phone] (toll-free: [phone]), Thu- Thursday 8am-5pm. Information for Suicide Prevention: National Suicide Prevention Lifeline (9-306- 212-TALK (0479)) or call or text 374. Chat resources: [email or web address].org. Day of Surgery Arrival Times: For patients having surgery @ [facility] ([facility]), you will be notified of your day of surgery arrival time by either the [facility] Pre-Op OR team or your surgeon's office. If you have not been notified by 1pm THE BUSINESS DAY BEFORE your surgery, please call your surgeon's office Giovanny Tran MD . You may also call [phone] and ask for your surgeon's office. For patients having surgery @ [facility], if you have not been notified of your surgery time by 4pm THE BUSINESS DAY BEFORE surgery, please contact your surgeon's office for day of surgery arrival time Giovanny Tran MD . You may also call [phone] and ask for your surgeon's office. For patients having surgery at [facility], if you have notbeen notified of your surgery time by 4pm THE BUSINESS DAY BEFORE your surgery, please contact yourrgeon's office for day of surgery arrival time Giovanny Tran MD . You may also call [phone] and ask for your surgeon's office. For patients having surgery @ [facility] ([facility]), you will be notified of your day of surgery arrival time by either the [facility] Pre-Op OR team or your surgeon's office. For patients having Ears/Nose Throat Surgery, Urology Surgery or Neuro Spine Surgery, the [facility] Pre-Op Team will contact you by 4pm THE BUSINESS DAY BEFORE surgery. For all other [facility] surgeries, if you have not been notified of your surgery time by 2pm THE BUSINESS DAY BEFORE your surgery, please call your surgeon's office Giovanny Tran MD . They will be able to direct you to who will provide your surgery time. You may also call the surgery center at [phone] and ask for your surgeon's office. For patients having [facility] @ [facility], if your surgeon's office or the surgery centerhas not notified you of your surgery time by 3pm THE BUSINESS DAY BEFORE your surgery, please call the surgery center at [phone]. The [facility] Planning (CPAP) does not provide arrival times for theday of surgery or provide the duration of surgery. This information is provided by your surgeon's office or by the center where you are having surgery. We appreciate your understanding. CAL DESIGN ENGINEER * Perioperative Nursing Note - Sruthi Chacko RN - 01/03/2025 12:26 PM CST Pre Anesthesia Testing Perioperative Nursing Note Telephone Preoperative Evaluation - TELEPHONE ONLY, NO PHYSICAL EXAM - [facility] CPAP Date: 01/03/25 PAT RN completed assessment with the patient. Naif Hale is a 79 y.o. male TYMPANOPLASTY WITH MASTOIDECTOMY. (Left: Ear) TYMPANOPLASTY WITH RECONSTRUCTION OSSICULAR CHAIN. (Left: Ear) Pre-Op Diagnosis Codes: * Left chronic otitis media [H66.92] ALLERGIES: Allergies Allergen Reactions Lisinopril-Hydrochlorothiazide Hypotension Vitals: 01/03/25 1221 Height: 188 cm (6' 2) Height Method: Stated Weight: (!) 142.9 kg (315 lb) Weight Method: Stated BSA (Calculated - sq m): 2.73 sq meters BMI (Calculated): 40.43 Weight in (lb) to have BMI = 25: 194.3 Advance Directives (For Healthcare) Have you reviewed your Advance Directive and is it valid for this stay?: Yes Advance Directive: Patient has advance directive, copy in chart Type of Healthcare Directive: Durable power of fisher hoop net for health care Past Medical History: Diagnosis Date Alcohol abuse Alcoholism (HCC) Alcoholism Arrhythmia a-fib Depression Heart disease HX OTHER MEDICAL Arrhythmias paroxysmal atrial fibrillation Hypertension Hypertension Mixed conductive and sensorineural hearing loss Rheumatic fever Sleep apnea Past Surgical History: Procedure Laterality Date APPENDECTOMY 1965 BOWEL RESECTION 1965 CARDIAC CATHETERIZATION CATARACT EXTRACTION Bilateral COLONOSCOPY FRACTURE SURGERY Right 2020 femur fracture Social History Tobacco Use Smoking Status Former Types: Cigarettes Smokeless Tobacco Never Substance and Sexual Activity Drug Use Never Alcohol Use Q1: How often do you have a drink containing alcohol?: 4 or more times a week Q2: How many drinks containing alcohol do you have on a typical day when you are drinking?: (1 bottle of wine) Q3: How often do you have six or more drinks on one occasion?: Never ACTIVE MEDS Outpatient Medications Marked as Taking for the 01/09/25 encounter (Hospital Encounter) Medication Sig Dispense Refill acetaminophen (TYLENOL) 500 mg tablet Take 1 tablet (500 mg total) by mouth every 6 (six) hours as needed for pain Allergy Relief, fexofenadine, 180 mg tablet Take 1 tablet (180 mg total) by mouth as needed amiodarone (PACERONE) 100 mg tablet Take 1 tablet (100 mg total) by mouth every morning atorvastatin (LIPITOR) 80 mg tablet TAKE 1 TABLET(80 MG) BY MOUTH EVERY NIGHT (Patient taking differently: Take 1 tablet (80 mg total) by mouth nightly) 30 tablet 2 carvediloL (COREG) 6.25 mg tablet Take 1 tablet (6.25 mg total) by mouth 2 (two) times a day with meals (Patient taking differently: Take 1 tablet (6.25 mg total) by mouth 2 (two) times a day with meals) 60 tablet 11 cholecalciferol (VITAMIN D-3) 5,000 unit tablet Take 1 tablet (5,000 Units total) by mouth every morning Currently out of med cyanocobalamin (vitamin B-12) 1,000 mcg tablet Take 1 tablet (1,000 mcg total) by mouth daily (Patient taking differently: Take 1 tablet (1,000 mcg total) by mouth every morning Currently out of med)90 tablet 1 Eliquis 5 mg tablet TAKE 1 TABLET(5 MG) BY MOUTH TWICE DAILY (Patient taking differently: Take 1 tablet (5 mg total) by mouth 2 (two) times a day) 180 tablet 0 escitalopram (LEXAPRO) 20 mg tablet TAKE 1 TABLET(20 MG) BY MOUTH DAILY (Patient taking differently: Take 1 tablet (20 mg total) by mouth every morning) 90 tablet 0 irbesartan (AVAPRO) 150 mg tablet Take 1 tablet (150 mg total) by mouth every morning TRAVEL/EXPOSURE Travel Screening Have you traveled outside the [place] in the last 6 months?: No Exposure Screening Have you been exposed to anyone who is sick in the last 30 days?: No Have you been exposed to or tested positive for COVID-19 within the last 10 days?: No Infectious Disease Screening Are you having any of the following:: None SCREENINGS/ASSESSMENTS Sleep Apnea Questions Have you ever had a sleep study?: Yes Have you ever been diagnosed with sleep apnea?: Yes Do you use a machine to help you breathe at night?: No (unable to get supplies for about a month now) Communication/Windows Architect Needs Communication Needs: None Learning Needs Assessment Barriers Identified: None Persons Involved: Patient Patient Understands and Agrees: Yes Amber Index Feeding: Independent (Food provided within reach) Bathing: independent (or in shower) Grooming: Independent face/hair/teeth/shaving (implements provided) Dressing: Independent (including buttons, zips, laces, etc) Bowels: Continent Bladder: Continent Toilet use: independent (on and off, dressing, wiping) Transfers (bed to chair and back): Independent Mobility (on level surfaces): Independent (but may use any aid, for example, stick) >50 yards Stairs: Independent Amber index score: 100 ADL Assessment Assistive Devices/DME: CPAP/BiPAP Hearing - Right Ear: Hard of hearing Hearing - Left Ear: Hard of hearing ADDITIONAL Tattoos/Piercings Piercings Remaining: No IMPLANTS Implants Type Not Specified Andrzej - Implanted Hip As of 01/09/2023 Status: Implanted PATIENT CARE PLANNING Preop Phone Call Ride and Caregiver Arranged: Yes Health Sciences Department Chair Phone Number: Brother in law Osito Discharge Planning Living Arrangements: Alone Support Systems: Family members Assistance Needed: his brother in law will stay with him after procedure Type of Residence: Apartment Patient expects to be discharged to: Private residence Windows Architect Needs No Russian ADDITIONAL COMMENTS/ FOLLOW UP CAL DESIGN ENGINEER documented in this encounter Plan of Treatment Not on file documented as of this encounter Visit Diagnoses Not on filedocumented in this encounter Historical Medications * This list may reflect changes made after this encounter. acetaminophen (TYLENOL) 500 mg tablet Take 1 tablet (500 mg total) by mouth every 6 (six) hours as needed for pain added in this encounter Care Teams Side Framer Relationship Specialty Start Date End Date Mohit Kat MD [email or web address] [address] PCP - General Family Medicine 10/31/24 documented as of this encounter
--- OUTSIDE RECORDS SUMMARY | 2025-01-18 07:49 | XMS_ITS | Encounter Summary ---
Author Organization [facility] Address [facility] [place] [address] Care Team Providers Care Network Pricing Consultant Name Role Phone Mohit Kat MD Primary Care Provider [phone] Caleb Oconnor MD Unavailable Unavailable Thad Oleary PA-C Unavailable [phone] Oscar Rowell MD Primary Care Provider [phone] Mohit Kat MD Primary Care Provider [phone] Encounter Details Date Type Department Care Team (Late st Contact Info) Description 08/03/2015 Abstract [facility] [address] [place] [address] Caleb Oconnor MD Social History Tobacco Use [...] on filedocumented in this encounter Care Teams Network Pricing Consultant Relationship Specialty Start Date End Date Mohit Kat MD PCP - General FAMILY PRACTICE 09/17/15 05/31/18 Oscar Rowell MD [address] [place] [address] PCP - General FAMILY PRACTICE 06/01/18 01/09/20 Mohit Kat MD [address] [place] [address] PCP - General FAMILY PRACTICE 01/10/20 Caleb Oconnor MD EP Geothermal System Installer CLINICAL CARDIAC ELECTROPHYSIOLOGY 10/03/15 Thad Oleary PA-C [address] [place] [address] Electrophysiology 06/13/16 documented as of this encounter
--- OUTSIDE RECORDS SUMMARY | 2025-01-18 07:49 | XMS_ITS | Encounter Summary ---
Author Organization [facility] Healthcare Address [address] [place] [address] Care Team Providers Care Supervisor Cabinetmaker Name Role Phone No, Physician Primary Care Provider [phone] Mohit Kat MD Primary Care Provider [phone] Encounter Details Date Type Department Care Team ([facility] st Contact Info) Description 06/10/2024 Orders Only [facility] Health Information Management [address] [place] [address] Scanning, Provider Social History Tobacco Use Types Packs/Day Years Used Date Smoking Tobacco: Former Cigarettes Smokeless Tobacco: Never Alcohol Use Standard Drinks/Week Comments No 0 (1 standard drink = 0.6 oz pur e alcohol) [facility] Utilities Answer Date Recorded In the [...] often do you attend chur ch or church services? Never 01/12/2023 Do you belong to any clubs o r organizations such as synagogue groups, unions, fraternal or athletic groups, or [...] place to sleep or slept in a fdc (including now)? No 01/12/2023 Personal Safety Answer Date Recorded Have you ever been in or are you currently in a harmful physical or emotional relationship or is someone making you feel afraid or unsafe? 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 Gender Identity Not on file Sexual Orientation Not on file documented as of this encounter Plan of Treatment Not on file documented as of this encounter Procedures Procedure Name Priority Date/Time Associated Diagnosis Comments SCAN - LABS 06/10/2024 documented in this encounter Results * SCAN - LABS (06/10/2024) us Provider Scanning Final Result documented in this encounter Visit Diagnoses Not on filedocumented in this encounter Care Teams Supervisor Cabinetmaker Relationship Specialty Start Date End Date No, Physician PCP - General 10/21/23 10/30/24 Mohit Kat MD [address] [address] PCP - General Family Medicine 10/31/24 documented as of this encounter
--- OUTSIDE RECORDS SUMMARY | 2025-01-18 07:49 | XMS_ITS | Patient Health Record ---
Author Organization [facility] , Address [address] [place] [address] Care Team Providers Care Medical Dosimetrist Name Role Phone [place] CRYSTAL, Mohit Primary Care Provider Jaya Jorgensen Unavailable [phone] REASON FOR REFERRAL No Information MEDICATIONS Medication SIG (Take, Route, Fr equency, Duration) Notes Start Date End Date Status Escitalopram Oxalate Unknown Apixaban Unknown Simvastatin Unknown Carvedilol Unknown PLAN OF TREATMENT No Information Insurance Providers Payer Name Payer Address Payer Phone Subscriber Number Group Number Insured Name Patient Relationship to Insured Coverage Start Date Coverage End Date Medicare [place] [address] [address] [place] [address] [id number] Naif Hale Self - patient is the insured [facility] [address] [place] [address] [id number] Naif Hale Self - patient is the insured MEDICAL (GENERAL) HISTORY Medical History History ICD Code High blood pressure Vascular disease arthritis Surgical History Surgery Date(Month/Year) Cardiac ablation Excision of Dupuytrens Cord Left Small f patricia 12/10/2015
--- OUTSIDE RECORDS SUMMARY | 2025-01-18 07:50 | XMS_ITS | Encounter Summary ---
Author Organization [facility] Healthcare Address [address] [place] [address] Care Team Providers Care Advisory Software Engineer Name Role Phone Ish Falcon MD Primary Care Provider + No, Physician Primary Care Provider [phone] Mohit Kat MD Primary Care Provider [phone] Encounter Details Date Type Department Care Team (Late st Contact Info) Description 01/23/2023 TCC Initial Outreach [facility] [address] [place] [address] Shahid Schumacher, RN Social History Tobacco Use Types Packs/Day Years Used Date Smoking Tobacco: Former Cigarettes Smokeless Tobacco: Never Alcohol Use Standard Drinks/Week Comments No 0 (1 standard drink = 0.6 oz pur e alcohol) [facility] Utilities Answer Date Recorded In the past 12 months has [employer], gas, oil, or water company threatened [...] often do you attend chur ch or rastafari services? Never 01/12/2023 Do you belong to [...] place to sleep or slept in a prison (including now)? No 01/12/2023 Personal Safety Answer Date Recorded Have you ever been in or are you currently in a harmful physical or emotional relationship or is someone making you feel afraid or unsafe? 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 Gender Identity Not on file Sexual Orientation Not on file documented as of this encounter Functional Status * In the past year, patient experienced: Question Answer Date of Assessment Author One or more falls in the last year 0 2022 2:12 PM FROZEN FOOD SELECTOR Debbi Martínez MA * BP Location Answer Date of Assessment Author Left arm 01/23/2023 2:14 PM FROZEN FOOD SELECTOR Jose Martínez MA * Alcohol Withdrawal BP Hierarchy Answer Date of Assessment Author 63 01/23/2023 2:14 PM FROZEN FOOD SELECTOR Jose Martínez MA * BP Location Answer Date of Assessment Author Left arm 01/23/2023 2:14 PM FROZEN FOOD SELECTOR Jose Martínez MA documented as of this encounter Plan of Treatment Not on file documented as of this encounter Visit Diagnoses Not on filedocumented in this encounter Care Teams Advisory Software Engineer Relationship Specialty Start Date End Date Ish Falcon MD [address] [place] [address] PCP - General Family Medicine 12/11/21 10/20/23 No, Physician PCP - General 10/21/23 10/30/24 Mohit Kat MD [address] [address] PCP - General Family Medicine 10/31/24 documented as of this encounter
--- OUTSIDE RECORDS SUMMARY | 2025-01-18 07:50 | XMS_ITS | Clinical Summary ---
Author Organization [facility] Address [address] [place] [address] Care Team Providers Care Taping Machine Operator Name Role Phone Caleb Oconnor MD Unavailable Unavailable Thad Oleary PA-C Unavailable [phone] Mohit Kat MD Primary Care Provider [phone] Allergies No known active allergies Medications traMADol [...] (CPAP) 10/03/2015 Hyperlipidemia 10/03/2015 Persistent atrial fibrillation 10/03/2015 Atrial flutter Essential hypertension Family History Medical History Relation [...] Comments Blood Pressure 160/80 01/10/2020 2:49 PM SENIOR RESERVOIR ENGINEER Pulse 50 01/10/2020 2:49 PM SENIOR RESERVOIR ENGINEER EKG Temperature - - Respiratory Rate 20 01/10/2020 2:49 PM SENIOR RESERVOIR ENGINEER Oxygen Saturation - - Inhaled Oxygen Concentration - - Weight 128.6 kg (283 lb 9.6 oz) 01/10/2020 2:49 PM SENIOR RESERVOIR ENGINEER Height 185.4 cm (6' 1) 01/10/2020 2:49 PM SENIOR RESERVOIR ENGINEER Body Mass Index 37.42 01/10/2020 2:49 PM SENIOR RESERVOIR ENGINEER Plan of Treatment Health Maintenance Due Date [...] - 1-dose 75+ series) 2021 COVID-19 Vaccine ( - 2024-2 6 season) 2024 Influenza Adult (#1) 2024 Hepatitis A Vaccines Aged Out No long er eligible based on patient's age to complete this topic Meningococcal B Vaccine Aged Out No l onger eligible based on patient's age to complete this topic Meningococcal Vaccine Aged Out No lynn joel eligible based on patient's age to complete this topic RSV Immunizations Under 20 Months Aged Out No longer eligible based on patient's age to complete this topic Insurance MEDICARE MEDICARE [facility] Care Teams Taping Machine Operator Relationship Specialty Start Date End Date Mohit Kat MD [address] [place] [address] PCP - General FAMILY PRACTICE 01/10/20 Caleb Oconnor MD EP Dial Painter CLINICAL CARDIAC ELECTROPHYSIOLOGY 10/03/15 Thad Oleary PA-C [address] [place] [address] Electrophysiology 06/13/16
--- OUTSIDE RECORDS SUMMARY | 2025-01-18 07:50 | XMS_ITS | Clinical Summary ---
Author Organization [facility] [address] Address [address] [place] [address] Care Team Providers Care Virtualization Consultant Name Role Phone Mohit Kat MD Primary Care Provider [phone] Allergies Active Allergy Reactions Criticality Noted Date Comments Lisinopril-Hydrochlorothiazide Hypotension High 02/23 Medications cyanocobalamin (vitamin B-12) 1,000 mcg tabletIndicatio ns:Prevention of Vitamin B12 Deficiency Take 1 tablet (1,000 mcg total) by mouth daily 90 tablet 1 12/12/19 22 Active Additional Information Patient taking differently:1,000 mcg oralEvery morning, Currently out of med, Indications: Prevention of Vitamin B12 Deficiency, Informant: Self, Reported on 01/03/2025 cholecalciferol (VITAMIN D-3) 5,000 unit tabletIndicatio ns:Vitamin D Deficiency Take 1 tablet (5,000 Units total) by mouth every morning Currently out of med Active carvediloL (COREG) 6.25 mg tablet Take 1 tablet (6.25 mg total) by mouth 2 (two) times a day with meals 60 tablet 11 02/21/20 23 026 Active Additional Information Patient taking differently:6.25 mg oral 2 times daily with meals (bkfst, dinner),Indications: hypertension, Informant: Self, Reported on 01/03/2025 Eliquis 5 mg tabletIndicatio ns:Paroxysmal atrial fibrillation (HCC) TAKE 1 TABLET(5 MG) BY MOUTH TWICE DAILY 180 tablet 09/10/19 24 Active Additional Information Patient taking differently:5 mg oral 2 times daily,Indications: atrial fibrillation, Informant: Self, Reported on 01/03/2025 escitalopram (LEXAPRO) 20 mg tabletIndicatio ns:Moderate episode of recurrent major depressive disorder (HCC) TAKE 1 TABLET(20 MG) BY MOUTH DAILY 90 tablet 12/11/19 Active Additional Information Patient taking differently: 20 mg oral Every morning, Indications: Anxiety with Depression, Informant: Self, Reported on 01/03/2025 atorvastatin (LIPITOR) 80 mg tablet TAKE 1 TABLET(80 MG) BY MOUTH EVERY NIGHT 30 tablet 2 12/11/19 Active Additional Information Patient taking differently: 80 mg oral Nightly, Indications: hyperlipidemia, Informant: Self, Reported on 01/03/2025 irbesartan (AVAPRO) 150 mg tabletIndicatio ns:hypertension Take 1 tablet (150 mg total) by mouth every morning Active amiodarone (PACERONE) 100 mg tabletIndicatio ns:Ventricular Rate Control in Atrial Fibrillation Take 1 tablet (100 mg total) by mouth every morning Active Allergy Relief, fexofenadine, 180 mg tabletIndicatio ns:Allergic Rhinitis Take 1 tablet (180 mg total) by mouth as needed 06/16/19 25 Active acetaminophen (TYLENOL) 500 mg tablet Take 1 tablet (500 mg total) by mouth every 6 (six) hours as needed for pain Active Vitamin B-1, mononitrate, 100 mg tablet Take 1 tablet (100 mg total) by mouth every morning 08/17/19 21 023 Discontinued Active Problems Problem Noted Date Diagnosed Date Left chronic otitis media 10/31/2024 Mixed conductive and sensori neural hearing loss of left ear with restricted hearing of right ear 10/31/2024 Severe obesity 08/30/2024 Atypical atrial flutter 04/02/2023 USP current use of anticoagulant 4 High risk medication use 04/02/2023 PVC (premature ventricular contraction) 04/02/19 24 Alcohol dependence 01/09/2023 Depression 01/09/2023 Assessment & Plan (01/23/2023 2:49 PM A AND P MECHANIC): - stable - continue current medication Body mass index 40.0-44.9, adult (CMS/HCC) 12/19 Assessment & Plan (12/19/2022 4:09 PM [...] 01/10/2022 Assessment & Plan (01/10/2022 10:46 AM A AND P MECHANIC): - uncontrolled - tx with ciprodex otic Encounter for annual wellness exam in Medicare p atient 01/10/2022 Assessment & Plan (01/10/2022 10:47 AM A AND P MECHANIC): - Reviewed with the patient BMI, blood [...] 12/11/2021 Assessment & Plan (03/07/2022 10:18 AM A AND P MECHANIC): - encouraged pt to continue to decrease his ETOH use Assessment & Plan (01/10/2022 10:45 AM A AND P MECHANIC): - encouraged pt to decrease ETOH use Assessment & Plan (12/11/2021 9:15 AM CDT): - encouraged pt to decrease ETOH use - check labs Moderate episode of recurrent major depressive d isorder 12/11/2021 Assessment & Plan (01/23/2023 2:49 PM A AND P MECHANIC): - stable - continue current medication Assessment & Plan (12/19/2022 4:09 PM CDT): - stable - continue current medication Assessment & Plan (06/06/2022 12:06 PM CDT): - stable - continue current medication Assessment & Plan (03/07/2022 10:18 AM A AND P MECHANIC): - stable - continue current medication Assessment & Plan (01/10/2022 10:45 AM A AND P MECHANIC): - stable - continue current medication Assessment & Plan (12/11/2021 9:15 AM CDT): - stable - continue current medication Essential hypertension 12/11/2021 Assessment & Plan (01/23/2023 2:49 PM A AND P MECHANIC): - stable - continue current medication Assessment & Plan (12/19/2022 1:58 PM CDT): - uncontrolled - continue losartan and amlodipine - f/u in 1 mo for recheck of BP Assessment & Plan (06/06/2022 12:06 PM CDT): - stable - continue current medication Assessment & Plan (03/07/2022 10:19 AM A AND P MECHANIC): - BP high today - continue current medication - pt to work on diet and exercise for 3 mo - f/u in 3 mo Assessment & Plan (01/10/2022 10:46 AM A AND P MECHANIC): - uncontrolled - add lisinopril/HCTZ 20/25mg daily [...] medication Assessment & Plan (01/10/2022 10:45 AM A AND P MECHANIC): - stable - continue current medication Assessment & Plan (12/11/2021 9:14 AM CDT): - stable - continue current medication - ref to cardiology for eval Paroxysmal atrial fibrillation 10/07/2016 Assessment & Plan (01/23/2023 2:49 PM A AND P MECHANIC): - stable - continue current medication Assessment & Plan (12/19/2022 4:09 PM CDT): - stable - continue current medication Assessment & Plan (06/06/2022 12:06 PM CDT): - stable - continue current medication Assessment & Plan (03/07/2022 10:18 AM A AND P MECHANIC): - stable - continue current medication Assessment & Plan (01/10/2022 10:45 AM A AND P MECHANIC): - stable - continue current medication Assessment & Plan (12/11/2021 9:16 AM CDT): - stable - continue current medication Pure hypercholesterolemia Assessment & Plan (01/23/2023 2:49 PM A AND P MECHANIC): - stable - continue current medication Assessment & Plan (12/19/2022 4:09 PM CDT): - stable - continue current medication Assessment & Plan (06/06/2022 12:06 PM CDT): - stable - continue current medication Assessment & Plan (03/07/2022 10:19 AM A AND P MECHANIC): - stable - continue current medication Resolved Problems Problem Noted Date Diagnosed Date Resolved Date Atrial fibrillation with rap id ventricular response 01/09/2023 01/21/2023 Atrial fibrillation with rap id ventricular response 01/21/2022 12/19/2022 Encounters Date Type Department Care Team Description 01/09/2025 Hospital Encounter [facility] Operating Room [address] [facility] [place] [address] Giovanny Tran MD 01/02/2025 11:59 PM A AND P MECHANIC Anesthesia Event [facility] Operating [facility] [address] [facility] [place] [address] Yadiel Mosley MD 10/31/2024 3:40 PM CDT Office Visit [facility] Medicine Otolaryngology [address], [address] [place] [phone] Giovanny Tran MD Left chronic otitis media (Primary Dx); Mixed conductive and sensorineural hearing loss of left ear with restricted hearing of right ear 10/31/2024 3:27 PM CDT - 10/31/2024 11:59 PM CDT Hospital Encounter [facility] [address] [place] [address] Discharge Disposition: Discharge to home or self care 10/31/2024 3:00 PM CDT Procedure visit [facility] Otolaryngology [address] [place] [address] Amee Senior Au.D. Mixed conductive and sensorineural hearing loss of left ear with restricted hearing of right ear (Primary Dx) from Last 3 Months Immunizations Immunization Administration Dates Next Due Influenza, Quad, Adjuvantate d, Intramuscular 11/28/2019 Influenza, Quadrivalent, Hig h Dose, Preservative Free, Intrr 01/23/2023,12/11/2021 Influenza, Trivalent, High D ose, Split, Preservative Free, Intramuscular 01/06/2019,01/03/2018,12/29/2017,12/05,10/26/2013 Influenza, Trivalent, Preser vative Free, Intramuscular 11/20/2014 Influenza, Unspecified 11/23/2020 Pneumococcal Conjugate Pcv20 01/23/2023 Surgical History Surgery Date Site/Laterality Comments CARDIAC CATHETERIZATION APPENDECTOMY 02/24/1964 - 02/22/1965 FRACTURE SURGERY 02/23/2019 - 02/23/2020 Right femur fracture CATARACT EXTRACTION Bilateral COLONOSCOPY BOWEL RESECTION 02/24/1964 - 02/22/1965 Medical History Medical History Date Comments Hypertension Hypertension Hx Other Medical Arrhythmias par oxysmal atrial fibrillation Alcoholism (HCC) Alcoholism Arrhythmia a-fib Depression Rheumatic fever Sleep apnea Heart disease Mixed conductive and sensori neural hearing loss Alcohol abuse Family History Medical History Relation Name Comments Alcohol abuse Father elicia hale Heart attack Father elicia hale Dementia Mother Anesthesia problems Neg Hx Relation Name Status Comments Father elicia hale (Age 57) Mother (Age 93) Social History Tobacco Use Types Packs/Day Years Used Date Smoking Tobacco: Former Cigarettes Smokeless Tobacco: Never Tobacco Cessation:Counseling Given: Not Answered Alcohol Use Standard Drinks/Week Comments No 0 (1 standard drink = 0.6 oz pur e alcohol) [facility] Utilities Answer Date Recorded In the past 12 months has [employer], gas, oil, or water [employer] threatened to shut off services in your [...] week 01/12/2023 How often do you attend [facility] or moravian services? Never 01/12/2023 Do you belong to any clubs o r organizations such as catholic groups, unions, fraternal or athletic groups, or [...] place to sleep or slept in a half-way (including now)? No 01/12/2023 AUDIT-C Answer Date [...] on file Legal Sex Male 9:31 PM A AND P MECHANIC Gender Identity Not on file Sexual Orientation Not on file Last Filed Vital Signs Vital Sign Reading Time Taken Comments Blood Pressure 120/76 09/23/2024 2:42 PM CDT Pulse 60 09/23/2024 2:42 PM CDT Temperature 36 C (96.8 F) 01/23/2023 2:14 PM A AND P MECHANIC Respiratory Rate 16 01/23/2023 2:14 PM A AND P MECHANIC Oxygen Saturation 95% 09/23/2024 2:42 PM CDT Inhaled Oxygen Concentration - - Weight 142.9 kg (315 lb) 01/03/2025 12:21 PM A AND P MECHANIC Height 188 cm (6' 2) 01/03/2025 12:21 PM A AND P MECHANIC Body Mass Index 40.44 01/03/2025 12:21 PM A AND P MECHANIC Plan of Treatment Health Maintenance Due Date Last Done Comments Hepatitis C Screening 1945 DTaP/Tdap/Td Vaccine (1 - Tdap) 1957 Hepatitis B Screening 1964 Zoster Vaccine (1 of 2) 1996 Abdominal Aortic Aneurysm (A AA) Screen 08/30/2011 Well Visit 65+ 01/10/2023 01/10/2022 Depression Screening 01/24/2024 01/23/2023, 01/10/2022, 12/11/2021 Fall Risk Assessment 01/24/2024 01/23/2023, 01/12/2023, 01/10/2022, Additional history exists Covid-19 Vaccine (3 - 2024-2 6 season) 2024 09/25/2020, 08/28/2020 Influenza Vaccine (#1) 2024 , 12/11/2021, 11/23/2020, Additional history exists Pneumococcal vaccine 65+ Completed 01/23/2023 Medical Devices Implanted Type Area Mechanical Project Manager Device Identifier Shelf Expiration Date Model / Serial / Lot Andrzej Hip Description:Andrzej Implant (Hip ) Procedures Procedure Name Priority Date/Time Associated Diagnosis Comments NEURO CT OUTSIDE REFERENCE Routine 10/31/2024 3:27 PM CDT AUDBASE RESULTS 10/31/2024 2:28 PM CDT from Last 3 Months Results * Neuro CT Outside Reference (10/31/2024 3:27 PM CDT) Impressions [id number] - 10/31/2024 3:27 PM CDT These images are for Reference purposes only and have not been reviewed by [facility] Radiology. There will be no report generated by a [facility] Radiologist. Narrative [id number] - 10/31/2024 3:27 PM CDT EXAMINATION: Images For Reference Purposes Only us Giovanny Tran MD IMG CT PROCEDURES Final Re sult [email or web address] * AudBase Results (10/31/2024 2:28 PM CDT) Provider Scanning AUDIOLOGY SERVICES ORDERABLES Final Result from Last 3 Months Insurance [facility] [employer] MEDICARE HMO HU[employer] MEDICARE HMO Advance Directives For more information, please contact: [phone] Documents on File Type Date Recorded Patient Surgical Manager Expl anation ADVANCE DIRECTIVE 06/02/2022 2:41 PM Power of Restorative Care Technician-Medical * Full Code (Latest Code Status on File) Date Activated Date Inactivated Comments 01/09/2023 4:03 PM 01/12/2023 5:38 PM * Full Code Date Activated Date Inactivated Comments 01/09/2023 1:45 PM 01/09/2023 4:03 PM * Full Code Date Activated Date Inactivated Comments 06/01/2022 11:34 AM 06/05/2022 8:27 PM * Full Code Date Activated Date Inactivated Comments 01/21/2022 4:12 PM 01/23/2022 6:32 PM Care Teams Virtualization Consultant Relationship Specialty Start Date End Date Mohit Kat MD [address] [address] PCP - General Family Medicine 10/31/24
--- NOTE | 2025-01-18 08:09 | PC.NURSE ---
Pt has a ring to the right hand 5th finger an d refused to be taken off or cut off.
--- OUTSIDE RECORDS SUMMARY | 2025-01-18 09:23 | XMS_ITS | Encounter Summary ---
Author Organization [facility] Healthcare Address [address] [place] [address] Care Team Providers Care Cytogeneticist Name Role Phone No, Physician Primary Care Provider [phone] Mohit Kat MD Primary Care Provider [phone] Encounter Details Date Type Department Care Team ([facility] st Contact Info) Description 06/10/2024 Orders Only [facility] Health Information Management [address] [place] [address] Scanning, Provider Social History Tobacco Use Types Packs/Day Years Used Date Smoking Tobacco: Former Cigarettes Smokeless Tobacco: Never Alcohol Use Standard Drinks/Week Comments No 0 (1 standard drink = 0.6 oz pur e alcohol) [facility] Utilities Answer Date Recorded In the [...] often do you attend chur ch or faith services? Never 01/12/2023 Do you belong to any clubs o r organizations such as denominational groups, unions, fraternal or athletic groups, or [...] place to sleep or slept in a skilled nursing (including now)? No 01/12/2023 Personal Safety Answer Date Recorded Have you ever been in or are you currently in a harmful physical or emotional relationship or is someone making you feel afraid or unsafe? 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
--- OUTSIDE RECORDS SUMMARY | 2025-01-18 09:23 | XMS_ITS | Encounter Summary ---
Author Organization [facility] Healthcare Address [address] [place] [address] Care Team Providers Care Car Worker Name Role Phone Mohit Kat MD Primary Care Provider [phone] Reason for Visit * Auth/Cert (Routine) Specialty Diagnoses / Procedures Referred By Contac t Referred To Contact Diagnoses Left chronic otitis media Left chronic otitis media [H66.92] Procedures MA TMPP MASTOIDECT NTC/RCNSTED CANAL WALL OCR MA GRAFT EAR CRTLG AUTOGENOUS NOSE/EAR TYMPANOPLASTY WITH MASTOIDECTOMY. TYMPANOPLASTY WITH RECONSTRUCTION OSSICULAR CHAIN. Referral ID Status Reason Start Date Expiration Date Visits Re quested Visits Authorized [id number] 1 1 Encounter Details Date Type Department Care Team (Late st Contact Info) Description 01/09/2025 Hospital Encounter [facility] Surgery Center Operating Room [address] [place] [address] Giovanny Tran MD [address] [facility] [address] [place] [address] Social History Tobacco Use Types Packs/Day Years Used Date Smoking Tobacco: Former Cigarettes Smokeless Tobacco: Never Alcohol Use Standard Drinks/Week Comments No 0 (1 standard drink = 0.6 oz pur e alcohol) [facility] Utilities Answer Date Recorded In the [...] often do you attend chur ch or hoahaoism services? Never 01/12/2023 Do you belong to any clubs o r organizations such as jainism groups, unions, fraternal or athletic groups, or [...] on file Legal Sex Male 9:31 PM BAND TOP MAKER Gender Identity Not on file Sexual Orientation Not on file documented as of this encounter Last Filed Vital Signs Vital Sign Reading Time Taken Comments Blood Pressure - - Pulse - - Temperature - - Respiratory Rate - - Oxygen Saturation - - Inhaled Oxygen Concentration - - Weight 142.9 kg (315 lb) 01/03/2025 12:21 PM BAND TOP MAKER Height 188 cm (6' 2) 01/03/2025 12:21 PM BAND TOP MAKER Body Mass Index 40.44 01/03/2025 12:21 PM BAND TOP MAKER documented in this encounter Functional Status * Alcohol Use Question Answer Date of Assessment Author Q1: How often do you have a drink containing alcohol? 4 or more times a week 01/03/2025 12:18 PM BAND TOP MAKER Sruthi Chacko RN Q3: How often do you have six or more drinks on one occasion? Never 01/03/2025 12:18 PM BAND TOP MAKER Luiza Chacko RN documented as of this encounter Miscellaneous Notes * Pre-Procedure Instructions - Indu Velez NP - 01/04/2025 4:20 PM CST [facility] for Preoperative Assessment and Planning CPAP Clinic Location: [facility] The night before your surgery: * Do [...] of surgery. * If having surgery at [facility], you may want to bring a credit card if you want to use our Mobile Pharmacy for your discharge medications. Mobile pharmacy is not available at [facility], the [facility], or the [place] [facility]. Outpatient Surgery: * You must [...] tools to help you quit or call 0-351-CVUYVBJ ( ). Visit Smokefree.gov for more information. [...] additional action prior to your planned procedure. TOP MAKER * Pre-Procedure Instructions - Sruthi Chacko RN [...] remove nail coverings, artificial nails and nail taiwanese prior to the day of surgery. This is to lower your risk of infection and to allow the day of surgery team to monitor your oxygen levels. You should leave your valuables and any jewelry at home. No metal or piercings are allowed in the operating room. You should bring your insurance card, a photo ID (example: Coating Mixer Supervisor's License) and a method of payment for [...] Chart. If you are having surgery at [facility], please arrive on the day of [...] tools to help you quit or call 5-719-BXTJXZR ( ). Visit Smokefree.gov for more information. [...] Pathway to Excellent Care by the followinglink: [email or web address] How To Prepare Your Skin For Surgery [...] Remove nail coverings, artificial nails and nail taiwanese. Place clean linens on your bed the night before surgery. Shaving: You may shave your face, legs and underarms during your evening shower. Avoid shaving on the day of surgery. If you have questions, please call the CPAP Staff at [phone], Thursday-Thursday 8am-4:30pm. All patients should read the below section: Information on [facility] & the [facility]: Please view [email or web address] (Patient & Visitor Information) for additional details regarding Advanced Directive forms, AWARE, directions, parking information, lodging, Internet access, dining and more. Information on [facility] or [facility] ([facility]): Please view [email or web address] (Patient and Visitor Information) for parking, directions, lodging and more. For MyChart information, to activate account or password recovery, please go to [email or web address] or call [phone] (toll-free: [phone]), Thu- Thursday 8am-5pm. Information for Suicide Prevention: National Suicide Prevention Lifeline (6-926- 875-TALK (4686)) or call or text 375. Chat resources: Oceana.org. Day of Surgery Arrival Times: For patients having surgery @ [facility] ([facility]), you will be notified of your day of surgery arrival time by either the [facility] Pre-Op OR team or your surgeon's office. If you have not been notified by 1pm THE BUSINESS DAY BEFORE your surgery, please call your surgeon's office Giovanny Tran MD . You may also call [phone] and ask for your surgeon's office. For patients having surgery @ [facility], if you have not been notified of your surgery time by 4pm THE BUSINESS DAY BEFORE surgery, please contact your surgeon's office for day of surgery arrival time Giovanny Tran MD . You may also call [phone] and ask for your surgeon's office. For patients having surgery at [facility] [place], if you have notbeen notified of your surgery time by 4pm THE BUSINESS DAY BEFORE your surgery, please contact yourrgeon's office for day of surgery arrival time Giovanny Tran MD . You may also call [phone] and ask for your surgeon's office. For patients having surgery @ [facility] ([facility]), you will be notified of your day of surgery arrival time by either the [facility] Pre-Op OR team or your surgeon's office. For patients having Ears/Nose Throat Surgery, Urology Surgery or Neuro Spine Surgery, the [facility] Pre-Op Team will contact you by 4pm THE BUSINESS DAY BEFORE surgery. For all other [facility] surgeries, if you have not been notified of your surgery time by 2pm THE BUSINESS DAY BEFORE your surgery, please call your surgeon's office Giovanny Tran MD . They will be able to direct you to who will provide your surgery time. You may also call the surgery center at [phone] and ask for your surgeon's office. For patients having surgery @ [facility], if your surgeon's office or the surgery centerhas not notified you of your surgery time by 3pm THE BUSINESS DAY BEFORE your surgery, please call the surgery center at [phone]. The Center for Preoperative Assessment & Planning (CPAP) does not provide arrival times for theday of surgery or provide the duration of surgery. This information is provided by your surgeon's office or by the center where you are having surgery. We appreciate your understanding. TOP MAKER * Perioperative Nursing Note - Sruthi Chacko RN - 01/03/2025 12:26 PM CST Pre Anesthesia Testing Perioperative Nursing Note Telephone Preoperative Evaluation - TELEPHONE ONLY, NO PHYSICAL EXAM - [facility] CPAP Date: 01/03/25 PAT RN completed assessment [...] Type of Healthcare Directive: Durable power of employment attorney for health care Past Medical History: Diagnosis [...] get supplies for about a month now) Communication/Physician/Allergy/Immunology Needs Communication Needs: None Learning Needs Assessment [...] Phone Call Ride and Caregiver Arranged: Yes Field Laborer Phone Number: Brother in law Osito Discharge Planning Living Arrangements: Alone Support Systems: Family members Assistance Needed: his brother in law will stay with him after procedure Type of Residence: Apartment Patient expects to be discharged to: Private residence Physician/Allergy/Immunology Needs No Togolese ADDITIONAL COMMENTS/ FOLLOW UP TOP MAKER documented in this encounter Plan of Treatment Not on file documented as of this encounter Visit Diagnoses Not on filedocumented in this encounter Historical Medications * This list may reflect changes made after this encounter. acetaminophen (TYLENOL) 500 mg tablet Take 1 tablet (500 mg total) by mouth every 6 (six) hours as needed for pain added in this encounter Care Teams Car Worker Relationship Specialty Start Date End Date Mohit Kat MD [address] [address] PCP - General Family Medicine 10/31/24 documented as of this encounter
--- OUTSIDE RECORDS SUMMARY | 2025-01-18 09:23 | XMS_ITS | Encounter Summary ---
Author Organization [facility] Address [facility] [place] [address] Care Team Providers Care Professional Application Designer Name Role Phone Mohit Kat MD Primary Care Provider [phone] Caleb Oconnor MD Unavailable Unavailable Thad Oleary PA-C Unavailable [phone] Oscar Rowell MD Primary Care Provider [phone] Mohit Kat MD Primary Care Provider [phone] Encounter Details Date Type Department Care Team (Late st Contact Info) Description 08/03/2015 Abstract [facility] [address] [place] [address] Caleb Oconnor MD Social History Tobacco Use [...] on filedocumented in this encounter Care Teams Professional Application Designer Relationship Specialty Start Date End Date Mohit Kat MD PCP - General FAMILY PRACTICE 09/17/15 05/31/18 Oscar Rowell MD [address] [place] [address] PCP - General FAMILY PRACTICE 06/01/18 01/09/20 Mohit Kat MD [address] [place] [address] PCP - General FAMILY PRACTICE 01/10/20 Caleb Oconnor MD EP Manager Infrastructure CLINICAL CARDIAC ELECTROPHYSIOLOGY 10/03/15 Thad Oleary PA-C [address] [place] [address] Electrophysiology 06/13/16 documented as of this encounter
--- OUTSIDE RECORDS SUMMARY | 2025-01-18 09:24 | XMS_ITS | Encounter Summary ---
Author Organization [facility] Healthcare Address [address] [place] [address] Care Team Providers Care Mains And Service Supervisor Name Role Phone Ish Falcon MD Primary Care Provider + No, Physician Primary Care Provider [phone] Mohit Kat MD Primary Care Provider [phone] Encounter Details Date Type Department Care Team (Late st Contact Info) Description 01/23/2023 [facility] Initial Outreach [facility] [address] [place] [address] Shahid Schumacher, RN Social History Tobacco Use Types Packs/Day Years Used Date Smoking Tobacco: Former Cigarettes Smokeless Tobacco: Never Alcohol Use Standard Drinks/Week Comments No 0 (1 standard drink = 0.6 oz pur e alcohol) [facility] Utilities Answer Date Recorded In the past 12 months has [employer], gas, oil, or water company threatened [...] often do you attend chur ch or anabaptist services? Never 01/12/2023 Do you belong to any clubs o r organizations such as confucianism groups, unions, fraternal or athletic groups, or [...] on file Legal Sex Male 9:31 PM SUPERVISOR CONTACT LENS Gender Identity Not on file Sexual Orientation Not on file documented as of this encounter Functional Status * In the past year, patient experienced: Question Answer Date of Assessment Author One or more falls in the last year 0 2022 2:12 PM SUPERVISOR CONTACT LENS Debbi Martínez MA * BP Location Answer Date of Assessment Author Left arm 01/23/2023 2:14 PM SUPERVISOR CONTACT LENS Jose Martínez MA * Alcohol Withdrawal BP Hierarchy Answer Date of Assessment Author 63 01/23/2023 2:14 PM SUPERVISOR CONTACT LENS Jose Martínez MA * BP Location Answer Date of Assessment Author Left arm 01/23/2023 2:14 PM SUPERVISOR CONTACT LENS Jose Martínez MA documented as of this encounter Plan of Treatment Not on file documented as of this encounter Visit Diagnoses Not on filedocumented in this encounter Care Teams Mains And Service Supervisor Relationship Specialty Start Date End Date Ish Falcon MD [address] [place] [address] PCP - General Family Medicine 12/11/21 10/20/23 No, Physician PCP - General 10/21/23 10/30/24 Mohit Kat MD [address] [address] PCP - General Family Medicine 10/31/24 documented as of this encounter
--- OUTSIDE RECORDS SUMMARY | 2025-01-18 09:24 | XMS_ITS | Clinical Summary ---
Author Organization [facility] Address [address] [place] [address] Care Team Providers Care Offset Second Press Operator Name Role Phone Caleb Oconnor MD Unavailable Unavailable Thad Oleary PA-C Unavailable [phone] Mohit Kat MD Primary Care Provider [phone] Allergies No known active allergies Medications traMADol [...] Comments Blood Pressure 160/80 01/10/2020 2:49 PM UNDERWRITER SOLICITATION DIRECTOR Pulse 50 01/10/2020 2:49 PM UNDERWRITER SOLICITATION DIRECTOR EKG Temperature - - Respiratory Rate 20 01/10/2020 2:49 PM UNDERWRITER SOLICITATION DIRECTOR Oxygen Saturation - - Inhaled Oxygen Concentration - - Weight 128.6 kg (283 lb 9.6 oz) 01/10/2020 2:49 PM UNDERWRITER SOLICITATION DIRECTOR Height 185.4 cm (6' 1) 01/10/2020 2:49 PM UNDERWRITER SOLICITATION DIRECTOR Body Mass Index 37.42 01/10/2020 2:49 PM UNDERWRITER SOLICITATION DIRECTOR Plan of Treatment Health Maintenance Due Date [...] to complete this topic Insurance MEDICARE MEDICARE [facility] Care Teams Offset Second Press Operator Relationship Specialty Start Date End Date Mohit Kat MD [address] [place] [address] PCP - General FAMILY PRACTICE 01/10/20 Caleb Oconnor MD EP Maintainer [employer] CLINICAL CARDIAC ELECTROPHYSIOLOGY 10/03/15 Thad Oleary PA-C [address] [place] [address] Electrophysiology 06/13/16
--- OUTSIDE RECORDS SUMMARY | 2025-01-18 09:24 | XMS_ITS | Clinical Summary ---
Author Organization [facility] [address] Address [address] [place] [address] Care Team Providers Care Automat Car Attendant Name Role Phone Mohit Kat MD Primary Care Provider [phone] Allergies Active Allergy Reactions Criticality Noted Date [...] Severe obesity 08/30/2024 Atypical atrial flutter 04/02/2023 halfway current use of anticoagulant 4 High risk medication use 04/02/2023 PVC (premature ventricular contraction) 04/02/19 24 Alcohol dependence 01/09/2023 Depression 01/09/2023 Assessment & Plan (01/23/2023 2:49 PM MANAGER COMMUNICATION): - stable - continue current medication Body [...] 01/10/2022 Assessment & Plan (01/10/2022 10:46 AM MANAGER COMMUNICATION): - uncontrolled - tx with ciprodex otic Encounter for annual wellness exam in Medicare p atient 01/10/2022 Assessment & Plan (01/10/2022 10:47 AM MANAGER COMMUNICATION): - Reviewed with the patient BMI, blood [...] 12/11/2021 Assessment & Plan (03/07/2022 10:18 AM MANAGER COMMUNICATION): - encouraged pt to continue to decrease his ETOH use Assessment & Plan (01/10/2022 10:45 AM MANAGER COMMUNICATION): - encouraged pt to decrease ETOH use Assessment & Plan (12/11/2021 9:15 AM CDT): - encouraged pt to decrease ETOH use - check labs Moderate episode of recurrent major depressive d isorder 12/11/2021 Assessment & Plan (01/23/2023 2:49 PM MANAGER COMMUNICATION): - stable - continue current medication Assessment & Plan (12/19/2022 4:09 PM CDT): - stable - continue current medication Assessment & Plan (06/06/2022 12:06 PM CDT): - stable - continue current medication Assessment & Plan (03/07/2022 10:18 AM MANAGER COMMUNICATION): - stable - continue current medication Assessment & Plan (01/10/2022 10:45 AM MANAGER COMMUNICATION): - stable - continue current medication Assessment & Plan (12/11/2021 9:15 AM CDT): - stable - continue current medication Essential hypertension 12/11/2021 Assessment & Plan (01/23/2023 2:49 PM MANAGER COMMUNICATION): - stable - continue current medication Assessment & Plan (12/19/2022 1:58 PM CDT): - uncontrolled - continue losartan and amlodipine - f/u in 1 mo for recheck of BP Assessment & Plan (06/06/2022 12:06 PM CDT): - stable - continue current medication Assessment & Plan (03/07/2022 10:19 AM MANAGER COMMUNICATION): - BP high today - continue current medication - pt to work on diet and exercise for 3 mo - f/u in 3 mo Assessment & Plan (01/10/2022 10:46 AM MANAGER COMMUNICATION): - uncontrolled - add lisinopril/HCTZ 20/25mg daily [...] medication Assessment & Plan (01/10/2022 10:45 AM MANAGER COMMUNICATION): - stable - continue current medication Assessment & Plan (12/11/2021 9:14 AM CDT): - stable - continue current medication - ref to cardiology for eval Paroxysmal atrial fibrillation 10/07/2016 Assessment & Plan (01/23/2023 2:49 PM MANAGER COMMUNICATION): - stable - continue current medication Assessment & Plan (12/19/2022 4:09 PM CDT): - stable - continue current medication Assessment & Plan (06/06/2022 12:06 PM CDT): - stable - continue current medication Assessment & Plan (03/07/2022 10:18 AM MANAGER COMMUNICATION): - stable - continue current medication Assessment & Plan (01/10/2022 10:45 AM MANAGER COMMUNICATION): - stable - continue current medication Assessment & Plan (12/11/2021 9:16 AM CDT): - stable - continue current medication Pure hypercholesterolemia Assessment & Plan (01/23/2023 2:49 PM MANAGER COMMUNICATION): - stable - continue current medication Assessment & Plan (12/19/2022 4:09 PM CDT): - stable - continue current medication Assessment & Plan (06/06/2022 12:06 PM CDT): - stable - continue current medication Assessment & Plan (03/07/2022 10:19 AM MANAGER COMMUNICATION): - stable - continue current medication Resolved Problems Problem Noted Date Diagnosed Date Resolved Date Atrial fibrillation with rap id ventricular response 01/09/2023 01/21/2023 Atrial fibrillation with rap id ventricular response 01/21/2022 12/19/2022 Encounters Date Type Department Care Team Description 01/09/2025 Hospital Encounter [facility] Operating Room [address] [facility] [place] [address] Giovanny Tran MD 01/02/2025 11:59 PM MANAGER COMMUNICATION Anesthesia Event [facility] Operating [facility] [address] [facility] [place] [id number] Yadiel Mosley MD 10/31/2024 3:40 PM CDT Office Visit [facility] Medicine Otolaryngology [address], [address] [place] [address] Giovanny Tran MD Left chronic otitis media (Primary Dx); Mixed conductive and sensorineural hearing loss of left ear with restricted hearing of right ear 10/31/2024 3:27 PM CDT - 10/31/2024 11:59 PM CDT Hospital Encounter [facility] [address] [place] [address] Discharge Disposition: Discharge to home or self care 10/31/2024 3:00 PM CDT Procedure visit [facility] Otolaryngology [address], [address] [place] [address] Amee Senior Au.D. Mixed conductive and sensorineural [...] 0.6 oz pur e alcohol) [facility] Utilities Answer Date Recorded In the past 12 months has [employer], gas, oil, or water reQall threatened to shut off services in your [...] week 01/12/2023 How often do you attend [facility] or mormon services? Never 01/12/2023 Do you belong to any clubs o r organizations such as taoism groups, unions, fraternal or athletic groups, or [...] place to sleep or slept in a group home (including now)? No 01/12/2023 AUDIT-C Answer Date [...] on file Legal Sex Male 9:31 PM MANAGER COMMUNICATION Gender Identity Not on file Sexual Orientation Not on file Last Filed Vital Signs Vital Sign Reading Time Taken Comments Blood Pressure 120/76 09/23/2024 2:42 PM CDT Pulse 60 09/23/2024 2:42 PM CDT Temperature 36 C (96.8 F) 01/23/2023 2:14 PM MANAGER COMMUNICATION Respiratory Rate 16 01/23/2023 2:14 PM MANAGER COMMUNICATION Oxygen Saturation 95% 09/23/2024 2:42 PM CDT Inhaled Oxygen Concentration - - Weight 142.9 kg (315 lb) 01/03/2025 12:21 PM MANAGER COMMUNICATION Height 188 cm (6' 2) 01/03/2025 12:21 PM MANAGER COMMUNICATION Body Mass Index 40.44 01/03/2025 12:21 PM MANAGER COMMUNICATION Plan of Treatment Health Maintenance Due Date [...] Completed 01/23/2023 Medical Devices Implanted Type Area Fence Making Machine Operator Device Identifier Shelf Expiration Date Model / [...] only and have not been reviewed by [facility] Radiology. There will be no report generated by a [facility] Radiologist. Narrative [facility] - 10/31/2024 3:27 PM CDT EXAMINATION: Images For Reference Purposes Only us Giovanny Tran MD IMG CT PROCEDURES Final Re sult [facility] * [facility] Results (10/31/2024 2:28 PM CDT) Provider Scanning AUDIOLOGY SERVICES ORDERABLES Final Result from Last 3 Months Insurance [facility] HUMANA MEDICARE HMO HU[employer]NA MEDICARE HMO Advance Directives For more information, please contact: [phone] Documents on File Type Date Recorded Patient Car Knocker Expl anation ADVANCE DIRECTIVE 06/02/2022 2:41 PM Power of Press Tool Maker-Medical * Full Code (Latest Code Status on File) Date Activated Date Inactivated Comments 01/09/2023 4:03 PM 01/12/2023 5:38 PM * Full Code Date Activated Date Inactivated Comments 01/09/2023 1:45 PM 01/09/2023 4:03 PM * Full Code Date Activated Date Inactivated Comments 06/01/2022 11:34 AM 06/05/2022 8:27 PM * Full Code Date Activated Date Inactivated Comments 01/21/2022 4:12 PM 01/23/2022 6:32 PM Care Teams Automat Car Attendant Relationship Specialty Start Date End Date Mohit Kat MD [address] [address] PCP - General Family Medicine 10/31/24
--- NOTE | 2025-01-18 09:47 | ECG_ITS ---
Test Date: 2025-01-18 09:57:07 Measurements Intervals [place] Rate: 55 P: 258 TX: 111 QRS: 22 QRSD: 121 T: 45 QT: 389 QTc: 374 Interpretive Statements SINUS BRADYCARDIA WITH FREQUENT VENTRICULAR ECTOPY POSSIBLE INFERIOR MYOCARDIAL INFARCTION [30 ms Q WAVE IN II/aVF], PROBABLY OLD NONSPECIFIC REPOLARIZATION ABNORMALITIES ABNORMAL RHYTHM ECG No previous ECG available for comparison Electronically Signed On 01-18-2025 13:38:04 EXCHANGE SPECIALIST by Norberto Bowman M.D.
--- NOTE | 2025-01-18 10:03 | ED_ITS ---
HPI - General Adult General Chief complaint: Fall Stated complaint: Fall Thursday, right arm pain, Time Seen by Provider: 01/18/25 08:20 History of Present Illness HPI narrative: This is a 79-year-old male presenting after ground level fall. Patient fell Thursday afternoon at 2:00 p.m.. Caught himself on an outstretched hand but also struck his head. He did not seek medical attention at that time despite being on Eliquis. He was then went to an urgent care where he was diagnosed with 2 broken bones in his wrist, he is unsure of which and then was put in a splint. Overnight last night he developed severe pain in his hand when he woke up he had blisters on the dorsum of his hand. He denies fevers. He has had some nausea although he attributes that to the multiple hydrocodones he has been taking to do with his pain. No other symptoms. Related Data Home Medications ?Medication ?Instructions ?Recorded ?Confirmed ?Last Taken ?Type cholecalciferol (vitamin D3) 125 5,000 unit PO DAILY 0 04/04/19 09/19/24 05/28/21 History mcg (5,000 unit) tablet cyanocobalamin (vitamin B-12) 1,000 mcg PO DAILY 10/2809/19/24 Unknown History 1,000 mcg tablet Allergies Allergy/AdvReac Type Severity Reaction Status Date / Time hydrochlorothiazide Allergy Intermediate Unknown Verified 01/18/25 08:09 lisinopril Allergy Intermediate Unknown Verified 01/18/25 08:09 [facility] [place] Past Medical History Medical History Morbid obesity with BMI of 40.0-44.9, adult Folate deficiency anemia Level normal at 16.2 with hemoglobin 15.7 on 06/10/2024. Encounter for prostate cancer screening PSA 1.53n 06/10/24. 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 APAP at 5-16 cm of water pressure 06/04/2020 Abnormal fasting glucose (04/03/20) Fasting glucose 105, hemoglobin A1c 5.9 with microalbumin ratio of 6 with GFR 87 on 06/10/2024. BMI 37.0-37.9, adult Chronic anxiety Chronic depression Eczema Vitamin B12 deficiency anemia Level normal at 1457 with hemoglobin 15.7 on 06/10/2024. Vitamin D deficiency, unspecified Level normal at 36 on 06/10/2024. Hypogonadism male Chronic sinusitis Chronic serous otitis media of right ear Bilateral hearing loss Chronic bilateral low back pain with right-sided sciatica Surgical History Surgical History History of radiofrequency ablation procedure for cardiac arrhythmia A flutter ablation, [facility] Status post cataract extraction of both eyes with insertion of intraocular lens History of cardiac radiofrequency ablation 5 years ago for AFib History of bowel resection 19 years old Family History Family History Mother Patient's mother is , Onset Age: 92 Acute myocardial infarction Skin cancer Father Family history of cardiovascular disease, Onset Age: 57 Acute myocardial infarction Social History Social History Social History: He drinks 2-3 bottles of wine a night. No drug use except occasional marijuana use. Quit tobacco at age 28 after smoking 2 packs a day for 10 years. He lives alone. He is but it sounds like he still is in contact with his ex- quite frequently lives in [facility]. He has 2 step children. He has 1 son who is still living in a daughter who of alcohol and drug use. Code status: full code Surrogate decision maker for healthcare: Juan Pablo (son) Smoking packs per day: 2 Smoking cigarettes per day: 40.0 Years smoked: 11 Smoking pack-years: 22.00 Smoking status: Former smoker Tobacco type: cigarettes and cigars Alcohol intake: current Drinks per week: 70 Alcohol use details: beer or wine Varies, sometimes has a bottle of wine with his meal daily Substance use: former Substance use type: marijuana Spiritual care concerns: No Exam 2 Narrative: APPEARANCE: No apparent distress. Head: atraumatic. EYES: EOMI, NOSE: Atraumatic NECK: Trachea midline RESPIRATORY: No increased rate of breathing CARDIOVASCULAR: RRR, ABDOMINAL: Non-distended MUSCULOSKELETAl: Focal exam of the right hand showed significant swelling, ecchymosis and multiple blisters filled with serosanguineous fluid. NEURO: Alert. Moving 4/4 extremities SKIN:: Warm, dry. Normal color PSYCHIATRIC: Normal affect Course Vital Signs Vital signs: Vital Signs Temperature 97.5 F L 01/18/25 07:48 Pulse Rate 53 L 01/18/25 07:48 Respiratory Rate 18 01/18/25 07:48 Blood Pressure 143/47 H 01/18/25 07:48 Pulse Oximetry 100 01/18/25 07:48 Oxygen Delivery Room Air 01/18/25 07:48 Temperature 97.5 F L 01/18/25 07:48 Pulse Rate 54 L 01/18/25 11:24 Respiratory Rate 12 01/18/25 11:24 Blood Pressure 186/79 H 01/18/25 10:46 Pulse Oximetry 95 01/18/25 11:24 Oxygen Delivery Room Air 01/18/25 07:48 Medical Decision Making [facility] Narrative Medical decision making narrative: -Course: 79-year-old male presenting with sero sanguinous blisters to his hand after a FOOSH injury w/ fracture. Patient does not have fevers and is hemodynamically stable. Differential includes fracture blisters, superficial infection or necrotizing soft tissue infection. Patient was started on antibiotics to cover necrotizing soft tissue infection while his workup is being completed. The ring on his finger was removed. Consult was placed to Dr. Abraham (hand.) Laboratory studies and CT of the hand will be obtained. Labs and imaging reviewed. Presentation is not consistent with necrotizing soft tissue infection. Discussed with Dr. Abraham. We believe this be a combination fracture blisters and a splint was placed too tight. Dr. Abraham would like the patient placed in a volar splint and to follow up with him early next week. This was explained to the patient and he is comfortable being discharged. Given return precautions for signs of infection or fevers. Vital Signs Vital Signs: Vital Signs Temperature 97.5 F L 01/18/25 07:48 Pulse Rate 53 L 01/18/25 07:48 Respiratory Rate 18 01/18/25 07:48 Blood Pressure 143/47 H 01/18/25 07:48 Pulse Oximetry 100 01/18/25 07:48 Oxygen Delivery Room Air 01/18/25 07:48 Temperature 97.5 F L 01/18/25 07:48 Pulse Rate 54 L 01/18/25 11:24 Respiratory Rate 12 01/18/25 11:24 Blood Pressure 186/79 H 01/18/25 10:46 Pulse Oximetry 95 01/18/25 11:24 Oxygen Delivery Room Air 01/18/25 07:48 Lab Data 01/18/25 10:08 01/18/25 10:08 Labs: Lab Results 01/18/25 01/18/25 01/18/25 Range/Units 09:53 10:08 10:11 WBC 9.0 (4.5-10.0) K/mm3 RBC 4.39 L (4.6-6.20) M/mm3 Hgb 14.7 D (14.0-18.0) g/dL Hct 43.4 (42.0-52.0) % MCV 98.9 (80-100) fl MCH 33.5 (26-34) pg MCHC 33.9 (32-36) g/dl RDW 13.1 (11.5-14.5) % Plt Count 186 (150-375) k/mm3 MPV 10.6 H (7.4-10.4) fl Immature Gran % (Auto) 0.2 (0-0.5) % Neut % (Auto) 40.6 L (45.5-73.1) % Lymph % (Auto) 48.0 H (18.3-44.2) % [place] % (Auto) 8.7 H (2.6-8.5) % Eos % (Auto) 2.1 (0-4.4) % Baso % (Auto) 0.4 (0.2-1.2) % Lymph # (Auto) 4.31 H (0.9-3.2) K/mm3 [place] # (Auto) 0.8 H (0.1-0.6) K/mm3 Eos # (Auto) 0.2 (0-0.3) K/mm3 Baso # (Auto) 0.0 (0.0-0.1) K/mm3 Abs Immat Gran (auto) 0.02 (0.00-0.031) K/mm3 Absolute Neuts (auto) 3.6 (1.3-6.7) K/mm3 Absolute Nucleated RBC 0.000 (0.0-0.012) K/mm3 Nucleated RBC % 0.0 (0.0-0.2) % Sodium 136 L (137-145) mmol/L Potassium 3.6 (3.4-5.0) mmol/L Chloride 101 (98-107) mmol/L Carbon Dioxide 25 (22-30) mmol/L Anion Gap 10 (4-12) mmol/L BUN 8 L (9-20) mg/dL Creatinine 0.81 (0.7-1.3) mg/dL Estim Creat Clear Calc 96 ml/min Estimated GFR > 60 (59 - ) Glucose 99 (65-110) mg/dL POC Capillary Glucose 121 H 128 H (65-105) mg/dl Lactic Acid (0.7-2.0) mmol/L Calcium 9.2 (8.4-10.2) mg/dL Total Bilirubin 1.1 (0.2-1.3) mg/dL AST 32 (17-59) U/L ALT 31 (6-50) U/L Alkaline Phosphatase 55 (38-126) U/L Total Protein 7.2 (6.3-8.2) g/dL Albumin 4.4 (3.5-5.1) g/dL Urine Color (Yellow) Urine Appearance (Clear) Urine pH (5.0-9.0) Ur Specific [place] (1.001-1.035) Urine Protein (Negative) mg/dL Urine Glucose (UA) (Negative) mg/dL Urine Ketones (Negative) mg/dL Ur Blood (Man) (Negative) Urine Nitrate (Negative) Urine Bilirubin (Negative) Urine Urobilinogen (<2.0) mg/dL Leukocyte Esterase Rfl (Negative) CHRISTELLE/UL Urine RBC (0-2) /hpf Urine WBC (0-3) /hpf Ur Squamous Epith Cells (Few) /hpf Urine Bacteria /hpf Urine Casts 01/18/25 01/18/25 Range/Units 10:15 12:10 WBC (4.5-10.0) K/mm3 RBC (4.6-6.20) M/mm3 Hgb (14.0-18.0) g/dL Hct (42.0-52.0) % MCV (80-100) fl MCH (26-34) pg MCHC (32-36) g/dl RDW (11.5-14.5) % Plt Count (150-375) k/mm3 MPV (7.4-10.4) fl Immature Gran % (Auto) (0-0.5) % Neut % (Auto) (45.5-73.1) % Lymph % (Auto) (18.3-44.2) % [place] % (Auto) (2.6-8.5) % Eos % (Auto) (0-4.4) % Baso % (Auto) (0.2-1.2) % Lymph # (Auto) (0.9-3.2) K/mm3 [place] # (Auto) (0.1-0.6) K/mm3 Eos # (Auto) (0-0.3) K/mm3 Baso # (Auto) (0.0-0.1) K/mm3 Abs Immat Gran (auto) (0.00-0.031) K/mm3 Absolute Neuts (auto) (1.3-6.7) K/mm3 Absolute Nucleated RBC (0.0-0.012) K/mm3 Nucleated RBC % (0.0-0.2) % Sodium (137-145) mmol/L Potassium (3.4-5.0) mmol/L Chloride (98-107) mmol/L Carbon Dioxide (22-30) mmol/L Anion Gap (4-12) mmol/L BUN (9-20) mg/dL Creatinine (0.7-1.3) mg/dL Estim Creat Clear Calc ml/min Estimated GFR (59 - ) Glucose (65-110) mg/dL POC Capillary Glucose (65-105) mg/dl Lactic Acid 1.5 (0.7-2.0) mmol/L Calcium (8.4-10.2) mg/dL Total Bilirubin (0.2-1.3) mg/dL AST (17-59) U/L ALT (6-50) U/L Alkaline Phosphatase (38-126) U/L Total Protein (6.3-8.2) g/dL Albumin (3.5-5.1) g/dL Urine Color Yellow (Yellow) Urine Appearance Clear (Clear) Urine pH 5.5 (5.0-9.0) Ur Specific [place] > 1.045 H (1.001-1.035) Urine Protein Trace (Negative) mg/dL Urine Glucose (UA) Negative (Negative) mg/dL Urine Ketones Trace H (Negative) mg/dL Ur Blood (Man) Negative (Negative) Urine Nitrate Negative (Negative) Urine Bilirubin Negative (Negative) Urine Urobilinogen 1.0 (<2.0) mg/dL Leukocyte Esterase Rfl Negative (Negative) CHRISTELLE/UL Urine RBC 0-2 (0-2) /hpf Urine WBC 0-5 (0-3) /hpf Ur Squamous Epith Cells None seen (Few) /hpf Urine Bacteria None seen /hpf Urine Casts 0-2 Discharge Plan Discharge Clinical Impression: Fracture blister Patient Disposition: Home Condition: Stable Instructions: Antibiotic Form, Hand Fracture (DC), Blister (ED) Additional Instructions: You were seen in the emergency department for blisters on ran. These are likely result of the fracture and possibly the splint being on too tight. Please follow-up with Dr. Abraham early next week. If you develop any new or worsening symptoms such as fevers, weakness or failure hand is infected please return to the ED for re-evaluation. Patient Language: Wolof Prescriptions: No Action cyanocobalamin (vitamin B-12) 1,000 mcg tablet 1,000 mcg PO DAILY fexofenadine [Aliza Allergy] 180 mg tablet 180 mg PO DAILY Qty: 30 4RF Rx Instructions: take 1 tablet daily for allergic rhinitis carvedilol 6.25 mg tablet 6.25 mg PO Q12H Qty: 180 3RF Rx Instructions: must administer with a meal/food escitalopram oxalate [Lexapro] 20 mg tablet 20 mg PO DAILY Qty: 90 3RF irbesartan 150 mg tablet 150 mg PO DAILY Qty: 90 3RF cholecalciferol (vitamin D3) 125 mcg (5,000 unit) tablet 5,000 unit PO DAILY Eliquis 5 mg tablet 5 mg PO BID Qty: 60 11RF atorvastatin 80 mg tablet 80 mg PO QHS Qty: 90 3RF amiodarone 100 mg tablet 100 mg PO DAILY Qty: 90 3RF [id number] 3.5-10,000-1 mg/mL-unit/mL-% drops,suspension 4 drp otic (ear) Q8H Qty: 10 4RF Rx Instructions: put 4 drops in each ear and keep ear up towards the ceiling for 20 seconds afterward t.i.d. Follow-up/Referrals: Nate Abraham MD [Physician, Plastic Surgery] - 1 Week Clinical Impression: Fracture Mohit Wynne MD [Primary Care Provider, [facility]]
[2025-01-18 10:17] LABS: Hematocrit 43.4 % (42.0-52.0); Hemoglobin 14.7 g/dL (14.0-18.0); Immature Granulocyte Percent A 0.2 % (0-0.5); Lymphocytes Absolute Auto 4.31 K/mm3 (0.9-3.2); Mean Corpuscular HGB Conc 33.9 g/dl (32-36); Mean Corpuscular Hemoglobin 33.5 pg (26-34); Mean Corpuscular Volume 98.9 fl (80-100); Nucleated Red Blood Cells Absolute Auto 0.000 K/mm3 (0.0-0.012); Nucleated Red Blood Cells Perc 0.0 % (0.0-0.2); Platelet Count Result 186 k/mm3 (150-375); Red Blood Count 4.39 M/mm3 (4.6-6.20); White Blood Count 9.0 K/mm3 (4.5-10.0)
[2025-01-18] MEDS: MEROPENEM 1 GM in SODIUM CHLORIDE 0.9% IV 100 ML 200 ML IVPB (10:17)
[2025-01-18 10:49] LABS: Alanine Aminotransferase 31 U/L (6-50); Albumin Level 4.4 g/dL (3.5-5.1); Alkaline Phosphatase 55 U/L (38-126); Anion Gap 10 mmol/L (4-12); Aspartate Amino Transferase 32 U/L (17-59); Bilirubin,Total 1.1 mg/dL (0.2-1.3); Blood Urea Nitrogen 8 mg/dL (9-20); Calcium 9.2 mg/dL (8.4-10.2); Carbon Dioxide 25 mmol/L (22-30); Chloride 101 mmol/L (98-107); Estimated CRCL calculation 96 ml/min; Estimated Glomerular Filt Rate > 60; Glucose 99 mg/dL (65-110); Potassium 3.6 mmol/L (3.4-5.0); Sodium 136 mmol/L (137-145); Total Protein 7.2 g/dL (6.3-8.2)
[2025-01-18] MEDS: VANCOMYCIN 1,250 MG/NS 250 ML 1,250 MG/250 ML BAG 166.67 MG IVPB (11:21)
[2025-01-18 12:24] LABS: Add Urine Microscopic? YES; Appearance Urine Clear (Clear); Glucose Urine UA Negative (Negative); Leukocyte Esterase Ur Negative LEU/UL (Negative); Nitrate Urine Negative (Negative); Non Pathogenic Casts 0-2; Specific Grav Ur > 1.045 (1.001-1.035)
== END 2025-01-18 14:34 | disposition home or self-care (01) ==
PROVIDERS: Emergency Provider Emergency Medicine; PCP Family Medicine
DX: S62.344A Nondisplaced fracture of base of fourth metacarpal bone, right hand, initial encounter for closed fracture (principal); S62.346A Nondisplaced fracture of base of fifth metacarpal bone, right hand, initial encounter for closed fracture; I11.0 Hypertensive heart disease with heart failure; I50.20 Unspecified systolic (congestive) heart failure; I48.91 Unspecified atrial fibrillation; J32.9 Chronic sinusitis, unspecified; E53.8 Deficiency of other specified B group vitamins; G47.33 Obstructive sleep apnea (adult) (pediatric); F41.9 Anxiety disorder, unspecified; F32.A Depression, unspecified; Z98.42 Cataract extraction status, left eye; Z98.41 Cataract extraction status, right eye; Z96.1 Presence of intraocular lens; Z87.891 Personal history of nicotine dependence; Z90.49 Acquired absence of other specified parts of digestive tract; Z79.899 Other long term (current) drug therapy; Z79.01 Long term (current) use of anticoagulants; W18.30XA Fall on same level, unspecified, initial encounter; R00.1 Bradycardia, unspecified; R94.31 Abnormal electrocardiogram [ECG] [EKG]
CPT/HCPCS: 29125; 36415; 70450; 71045; 73110; 73201; 80053; 81001; 82948; 83605; 85025; 87040; 93005; 96365; 96367; 99284; A4565; J2185; J3373; Q9967

== ENCOUNTER 2025-01-23 15:24 | Inpatient (IN) | payer MEDICARE, SELFPAY ==
[2025-01-23] VITALS (58 sets, daily range): BP systolic 96–228; BP diastolic 71–202; PULSE 62–102; RESP 0–27; TEMP 36.4–38.2; O2SAT 70–100; BMI 39.1
--- NOTE | ~2025-01-23 | XR_ITS ---
EXAMINATION: XR chest 1V portable COMPARISON: No comparisons available. HISTORY: Cardiac arrest, respiratory failure FINDINGS: Moderate pulmonary venous congestion. Small basilar infiltrates. No pneumothorax. Moderate cardiomegaly. Mediastinal and hilar contours are within normal limits. Bony thorax no acute abnormality. Miscellaneous: ET tube 3 cm above the leland, nasogastric tube the tip is not visualized. Impression: CHF. Superimposed probable pneumonia Reviewed, dictated and finalized at location P. ATCH ASSOCIATE Impression: CHF. Superimposed probable pneumonia
--- NOTE | ~2025-01-23 | XR_ITS ---
XR chest 1V portable 01/26/2025 04:59 Indication: Respiratory failure. Procedure: AP portable chest Comparison: Comparison to multiple prior studies sequentially, with oldest reviewed study dated 01/18/2025. Findings: Endotracheal tube 5 cm above the country. NG tube in the stomach. There is bilateral airspace disease with more focal consolidation in the left perihilar and right basilar locations. Impression: 1: NG tube in the stomach. 2: Diffuse bilateral airspace disease, most likely edema. There is linear infiltrates of the left perihilar and right basilar locations which may represent superimposed pneumonia and/or atelectasis. Reviewed, dictated and finalized at location I. T END LOADER OPERATOR Impression: 1: NG tube in the stomach. 2: Diffuse bilateral airspace disease, most likely edema. There is linear infi ltrates of the left perihilar and right basilar locations which may represent s uperimposed pneumonia and/or atelectasis.
--- NOTE | ~2025-01-23 | XR_ITS ---
Examination: XR chest 1V portable Clinical History: Acute respiratory failure, cardiac arrest Comparison: 01/23/2025 Technique: Portable AP Findings: ET tube, NG tube. Cardiomegaly. Developing significant right lower lobe atelectasis with probable effusion. Right upper lobe opacity consistent with mediastinal fat and vessels. Mild interstitial markings left lung. No acute bony abnormality. IMPRESSION: 1. Worsening right lower lobe atelectasis and/or airspace disease with effusion. 2. Persistent left lower lobe atelectasis and/or airspace disease. Reviewed, dictated and finalized at location R. STRIAL DESIGNER IMPRESSION: 1. Worsening right lower lobe atelectasis and/or airspace disease with effusio n. 2. Persistent left lower lobe atelectasis and/or airspace disease.
--- NOTE | ~2025-01-23 | CT_ITS ---
CT chest abdomen pelvis wo con INDICATION:per ICU . COMPARISON: None. TECHNIQUE: Axial 2.5 mm images of the chest abdomen were obtained without IV or oral contrast. Diagnostic sensitivity is limited due to lack of IV contrast. FINDINGS: Bilateral lower lobe airspace opacities are noted. No large pleural effusion or pneumothorax. Endotracheal tube terminates above the leland. Enteric tube terminates within the stomach. There is no effusion or pneumothorax.] [There is no mediastinal adenopathy.] Heart size is normal. The liver parenchyma is unremarkable. No intrahepatic mass or ductal dilatation is evident. The gallbladder is unremarkable. The pancreas and spleen are normal in appearance. The adrenal glands are symmetric in size. The kidneys are unremarkable. No intrarenal stones are noted. There is no hydronephrosis. Evaluation of the stomach and bowel loops are limited due to lack of oral contrast. There are no bowel obstruction. There is no evidence of acute appendicitis. There is a Underwood catheter within the bladder. No free intraperitoneal fluid or air is evident. There is no significant retroperitoneal lymphadenopathy. The aorta, visceral vessels and renal arteries demonstrate normal caliber. The lower thoracic and lumbar vertebrae are in normal alignment. IMPRESSION: Bilateral lower lobe consolidation may represent pneumonia. No acute abdominal or pelvic findings. All CT scans at this facility are performed using low dose modulation techniques as appropriate to perform exam including the following: automated exposure control; use of iterative reconstruction technique; adjustment of the mA and/or kV according to patient size (this includes techniques or standardized protocols for targeted exams where dose is matched to indication/reason for exam). Reviewed, dictated and finalized at location S. AIMED PROPERTY MANAGER IMPRESSION: Bilateral lower lobe consolidation may represent pneumonia. No acute abdominal or pelvic findings. All CT scans at this facility are performed using low dose modulation techniqu es as appropriate to perform exam including the following: automated exposure c ontrol; use of iterative reconstruction technique; adjustment of the mA and/or kV according to patient size (this includes techniques or standardized protocol s for targeted exams where dose is matched to indication/reason for exam).
--- NOTE | ~2025-01-23 | XR_ITS ---
XR chest ET placement 01/23/2025 17:09 Indication: Cardiac arrest. Intubation. Procedure: AP portable chest Comparison: 01/18/2025 Findings: Cardiomegaly with pulmonary edema. Endotracheal tube tip 1.4 cm above the leland. Recommend retraction 2-3 cm. NG tube tip near the gastroesophageal junction. Recommend advancement. No pneumothorax. Impression: 1: Cardiomegaly with pulmonary edema. Reviewed, dictated and finalized at location I. E DEVELOPER Impression: 1: Cardiomegaly with pulmonary edema.
--- NOTE | ~2025-01-23 | CT_ITS ---
CT brain wo con HISTORY:fall, AMS, dizzy, on eliquis COMPARISON: 03/20/2024. TECHNIQUE: Axial images were obtained of the head without intravenous contrast. FINDINGS: No acute intracranial hemorrhage, mass effect or midline shift. No extra-axial fluid collections. There is generalized atrophy.The calvarium is intact. There are opacifications of the mastoid air cells bilaterally suggestive of mastoiditis. Visualized paranasal sinuses are clear. IMPRESSION: No acute intracranial hemorrhage or extra axial fluid collections. Bilateral mastoiditis. All CT scans at this facility are performed using low dose modulation techniques as appropriate to perform exam including the following: automated exposure control; use of iterative reconstruction technique; adjustment of the mA and/or kV according to patient size (this includes techniques or standardized protocols for targeted exams where dose is matched to indication/reason for exam). Reviewed, dictated and finalized at location S. CTURAL IRONWORKER IMPRESSION: No acute intracranial hemorrhage or extra axial fluid collections. Bilateral mastoiditis. All CT scans at this facility are performed using low dose modulation techniqu es as appropriate to perform exam including the following: automated exposure c ontrol; use of iterative reconstruction technique; adjustment of the mA and/or kV according to patient size (this includes techniques or standardized protocol s for targeted exams where dose is matched to indication/reason for exam).
--- NOTE | ~2025-01-23 | XR_ITS ---
EXAMINATION: XR chest 1V portable DATE: 01/31/2025 18:45 INDICATION: Hypoxemia TECHNIQUE: A single frontal view of the chest was obtained. COMPARISON: Chest x-ray dated 01/31/2025 at 5:11 AM. FINDINGS: Limited portable examination with right lung field not completely included. Tip of the endotracheal tube in satisfactory position level of the aortic arch. Severe cardiomegaly. Increased congestion with pulmonary edema of the lower two thirds of left lung. Pleural effusion. Right lung is not evaluated. IMPRESSION: 1. Significantly Limited evaluation. Most of the right lung is not included in the image. 2. Severe cardiomegaly. Endotracheal tube remains in satisfactory position. 3. The left lung field shows increased congestion with increasing airspace opacities due to pulmonary edema of left lung pleural effusion. Reviewed, dictated and finalized at location T. AGING MACHINE SUPPLIES DISTRIBUTOR IMPRESSION: 1. Significantly Limited evaluation. Most of the right lung is not included in the image. 2. Severe cardiomegaly. Endotracheal tube remains in satisfactory position. 3. The left lung field shows increased congestion with increasing airspace opac ities due to pulmonary edema of left lung pleural effusion.
--- NOTE | ~2025-01-23 | XR_ITS ---
XR chest ET placement 01/23/2025 23:42 Indication: Endotracheal tube exchange. Procedure: AP portable chest Comparison: 01/23/2025 Findings: Endotracheal tube has been retracted, tip 4.1 cm above the leland. NG tube has been advanced and the stomach. Cardiomegaly. Interval improvement of pulmonary edema. No significant effusion or pneumothorax. Impression: 1: Interval improvement of pulmonary edema. Reviewed, dictated and finalized at location I. SVERSE ABDOMINAL MUSCLE NURSE Impression: 1: Interval improvement of pulmonary edema.
--- NOTE | ~2025-01-23 | XR_ITS ---
Examination: XR chest 1V portable Clinical History: Cardiac arrest, respiratory failure Comparison: 1 day prior Technique: Portable AP Findings: Left PICC. Tip poorly seen but probably lower SVC. ET tube, NG tube. Unchanged cardiomegaly. Unchanged diffuse bilateral airspace disease and pleural effusions. No pneumothorax. No acute bony abnormality. IMPRESSION: 1. No significant cardiopulmonary change. 2. New left PICC, tip poorly seen but probably lower SVC. Reviewed, dictated and finalized at location R. L MANAGER
--- NOTE | ~2025-01-23 | XR_ITS ---
EXAMINATION: XR chest ET placement DATE: 01/27/2025 05:24 INDICATION: Endotracheal tube advancement TECHNIQUE: frontal view of the chest was obtained. COMPARISON: Chest radiograph dated 01/27/2025 FINDINGS: Endotracheal tube tip 5.5 cm above the leland. Nasogastric tube tip in the body the stomach with proximal side-port in the distal esophagus above level of the gastroesophageal junction. Persistent small bilateral pleural effusions. Opacities in bilateral mid to lower lung zones which could represent associated atelectasis, mild pulmonary edema or pneumonia. The cardiomediastinal silhouette is normal. IMPRESSION: 1. Endotracheal tube tip 5.5 cm above the leland and nasogastric tube tip in the stomach but with proximal side-port in the distal esophagus. Recommend 6 cm advancement of the nasogastric tube. 2. Persistent small bilateral pleural effusions with associated atelectasis, mild pulmonary edema or pneumonia in the bilateral mid to lower lung zones. Reviewed, dictated and finalized at location A. RINTENDENT MAINTENANCE AIRPORTS IMPRESSION: 1. Endotracheal tube tip 5.5 cm above the leland and nasogastric tube tip in th e stomach but with proximal side-port in the distal esophagus. Recommend 6 cm a dvancement of the nasogastric tube. 2. Persistent small bilateral pleural effusions with associated atelectasis, mi ld pulmonary edema or pneumonia in the bilateral mid to lower lung zones.
--- NOTE | ~2025-01-23 | XR_ITS ---
Examination: XR chest 1V portable Clinical History: Cardiac arrest, respiratory failure Comparison: 01/27/2025 Technique: Portable AP Findings: ET tube, NG tube. Unchanged cardiomegaly. Persistent diffuse interstitial markings. Persistent bibasilar opacities Persistent medial right upper lobe airspace opacity. No acute bony abnormality. IMPRESSION: 1. Persistent interstitial pulmonary edema or pneumonitis. 2. Persistent bibasilar atelectasis and/or airspace disease. Reviewed, dictated and finalized at location R. MATED WEAVER
--- NOTE | ~2025-01-23 | XR_ITS ---
EXAMINATION: XR abdomen gastric tube insert, 01/27/2025 10:20 ANIMAL GENETICIST HISTORY: OG tube placement COMPARISON: No comparisons available. Technique: 3 view. Findings: Bowel gas pattern unremarkable. No obstruction. No free air. No abnormal calcifications No acute osseous abnormality. Nasogastric tube terminates in the proximal stomach which should be advanced 5 cm. Impression: 1. No acute abnormality. Reviewed, dictated and finalized at location P. AL GENETICIST Impression: 1. No acute abnormality.
--- NOTE | ~2025-01-23 | XR_ITS ---
EXAMINATION: XR chest 1V portable DATE: 01/27/2025 05:23 INDICATION: Cardiac arrest. Respiratory failure. TECHNIQUE: frontal view of the chest was obtained. COMPARISON: Chest radiograph dated 01/26/2025 FINDINGS: Endotracheal tube tip 5.9 cm above the [place]. Nasogastric tube with side-port in the distal esophagus and distal tip in the stomach collimated beyond the inferior margin of the field of imaging. Opacities in bilateral lower lung zones consistent with small bilateral posterior layering pleural effusions with associated atelectasis, mild pulmonary edema or pneumonia. The cardiomediastinal silhouette is normal. IMPRESSION: 1. Proximal side-port of the nasogastric tube in the distal esophagus. Recommend advancement by 6 cm. 2. Small bilateral pleural effusions with associated atelectasis, mild pulmonary edema and/or pneumonia in the bilateral lower lung zones. Reviewed, dictated and finalized at location A. ESSING INSPECTOR IMPRESSION: 1. Proximal side-port of the nasogastric tube in the distal esophagus. Recommen d advancement by 6 cm. 2. Small bilateral pleural effusions with associated atelectasis, mild pulmonar y edema and/or pneumonia in the bilateral lower lung zones.
--- NOTE | ~2025-01-23 | XR_ITS ---
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 Technique: 3 view. Findings: Bowel gas pattern unremarkable. No obstruction. No free air. No abnormal calcifications No acute osseous abnormality. Nasogastric tube terminates in the distal stomach Impression: 1. No acute abnormality. Reviewed, dictated and finalized at location P. ROLL OPERATOR Impression: 1. No acute abnormality.
--- NOTE | ~2025-01-23 | US_ITS ---
BILATERAL LOWER EXTREMITY VENOUS DUPLEX Clinical History: Edema . Comparison: None. Technique: Grayscale, color, duplex/spectral Doppler sonography bilateral lower extremities. Findings: Bilateral common femoral, femoral, popliteal, and calf veins compressible and color Doppler patent. Normal augmentation with distal compression. No internal echoes. IMPRESSION: 1. No DVT either leg. Reviewed, dictated and finalized at location R. ING PROCESS ENGINEER IMPRESSION: 1. No DVT either leg.
--- NOTE | ~2025-01-23 | US_ITS ---
EXAMINATION: US arterial ankle brachial ind DATE: 01/24/2025 11:20 INDICATION: Weak right-sided pedal pulses TECHNIQUE: Segmental pressures and plethysmographic and Doppler waveforms of the brachial and lower extremity arteries were obtained. COMPARISON: None. FINDINGS: Right and left brachial artery pressures were unable to be obtained due to inability to occlude the vessels. The right ankle-brachial index (NIKOLE) is unable to be obtained also due to inability to occlude the right posterior tibial or dorsalis pedis arteries. The right great toe pressure is 212 mmHg. Arterial Doppler waveforms demonstrate normal brisk systolic upstrokes at both right posterior tibial and dorsalis pedis arteries. The left NIKOLE is also unable to be obtained due to inability to occlude the left posterior tibial or dorsalis pedis arteries.. The left great toe pressure is 214 mmHg. Arterial Doppler waveforms demonstrate normal brisk systolic upstrokes at both left posterior tibial and dorsalis pedis arteries. IMPRESSION: 1. Artery pressures and the pressures at the right and left brachial, posterior tibial and dorsalis pedis arteries were unable to be obtained likely due to markedly increased pressures with right and left great toe pressures of 212 and 214 mmHg respectively. Reviewed, dictated and finalized at location A. ERCIAL REAL ESTATE PARALEGAL IMPRESSION: 1. Artery pressures and the pressures at the right and left brachial, posterior tibial and dorsalis pedis arteries were unable to be obtained likely due to ma rkedly increased pressures with right and left great toe pressures of 212 and 2 14 mmHg respectively.
--- NOTE | ~2025-01-23 | XR_ITS ---
EXAMINATION: XR chest ET placement COMPARISON: No comparisons available. HISTORY: After intubation to confirm ET placement, code blue FINDINGS: Moderate pulmonary venous congestion. Bilateral infiltrates. No pneumothorax. Moderate cardiomegaly. Mediastinal and hilar contours are within normal limits. Bony thorax no acute abnormality. Miscellaneous: ETT 3 cm above the le[place]. Nasogastric tube the tip is not clearly visualized. Impression: CHF. Superimposed probable pneumonia Reviewed, dictated and finalized at location P. CTIONAL SURVEY DRAFTER Impression: CHF. Superimposed probable pneumonia
--- NOTE | ~2025-01-23 | XR_ITS ---
EXAMINATION: XR chest 1V portable COMPARISON: No comparisons available. HISTORY: Cardiac arrest, respiratory failure FINDINGS: Moderate pulmonary venous congestion. Small to moderate basilar infiltrates and small effusions. No pneumothorax. Moderate cardiomegaly. Mediastinal and hilar contours are within normal limits. Bony thorax no acute abnormality. Miscellaneous: ET tube 3 cm above the [place], nasogastric tube the tip is not visualized. Impression: CHF. Superimposed probable pneumonia. The findings appear minimally improved. Reviewed, dictated and finalized at location P. N IMPORT REPRESENTATIVE Impression: CHF. Superimposed probable pneumonia. The findings appear minimally improved.
--- OUTSIDE RECORDS SUMMARY | 2025-01-23 15:55 | XMS_ITS | Encounter Summary ---
Author Organization [facility] Healthcare Address [address] [place] [address] Care Team Providers Care Spare Parts Clerk Name Role Phone Mohit Kat MD Primary Care Provider [phone] Reason for Visit * Auth/Cert (Routine) Specialty Diagnoses / Procedures Referred By Contac t Referred To Contact Diagnoses Left chronic otitis media Left chronic otitis media [H66.92] Procedures [place] TMPP MASTOIDECT NTC/RCNSTED CANAL WALL OCR [place] GRAFT EAR CRTLG AUTOGENOUS NOSE/EAR TYMPANOPLASTY WITH MASTOIDECTOMY. TYMPANOPLASTY WITH RECONSTRUCTION OSSICULAR CHAIN. Referral ID Status Reason Start Date Expiration Date Visits Re quested Visits Authorized [id number] 1 1 Encounter Details Date Type Department Care Team (Late st Contact Info) Description 01/09/2025 Hospital Encounter [facility] Operating Room [address] [place] [address] Giovanny Tran MD [address] [facility] [address] [place] [address] Social History Tobacco Use Types Packs/Day Years Used Date Smoking Tobacco: Former Cigarettes Smokeless Tobacco: Never Alcohol Use Standard Drinks/Week Comments No 0 (1 standard drink = 0.6 oz pur e alcohol) [facility] Utilities Answer Date Recorded In the [...] often do you attend chur ch or scientologist services? Never 01/12/2023 Do you belong to any clubs o r organizations such as worship groups, unions, fraternal or athletic groups, or [...] place to sleep or slept in a retirement (including now)? 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 Gender Identity Not on file Sexual Orientation Not on file documented as of this encounter Last Filed Vital Signs Vital Sign Reading Time Taken Comments Blood Pressure - - Pulse - - Temperature - - Respiratory Rate - - Oxygen Saturation - - Inhaled Oxygen Concentration - - Weight 142.9 kg (315 lb) 01/03/2025 12:21 PM IT SYSTEMS ENGINEER Height 188 cm (6' 2) 01/03/2025 12:21 PM IT SYSTEMS ENGINEER Body Mass Index 40.44 01/03/2025 12:21 PM IT SYSTEMS ENGINEER documented in this encounter Functional Status * Alcohol Use Question Answer Date of Assessment Author Q1: How often do you have a drink containing alcohol? 4 or more times a week 01/03/2025 12:18 PM IT SYSTEMS ENGINEER Sruthi Chacko RN Q3: How often do you have six or more drinks on one occasion? Never 01/03/2025 12:18 PM IT SYSTEMS ENGINEER Luiza Chacko RN documented as of this encounter Miscellaneous Notes * Pre-Procedure Instructions - Indu Velez NP - 01/04/2025 4:20 PM CST [facility] Preoperative Assessment and Planning CPAP Clinic Location: [facility] The night before your surgery: * [...] of surgery. * If having surgery at [facility], you may want to bring a credit card if you want to use our Mobile Pharmacy for your discharge medications. Mobile pharmacy is not available at [facility], the [facility], or the [place]. Outpatient Surgery: * You must have a [...] tools to help you quit or call 6-662-POEHTGF ( ). Visit Smokefree.gov for more information. [...] additional action prior to your planned procedure. SYSTEMS ENGINEER * Pre-Procedure Instructions - Sruthi Chacko [...] remove nail coverings, artificial nails and nail azerbaijani prior to the day of surgery. This is to lower your risk of infection and to allow the day of surgery team to monitor your oxygen levels. You should leave your valuables and any jewelry at home. No metal or piercings are allowed in the operating room. You should bring your insurance card, a photo ID (example: Anger Control Counselor's License) and a method of payment for [...] Chart. If you are having surgery at [facility], please arrive on the day of surgery [...] tools to help you quit or call 0-067-XLMNBMV ( ). Visit Smokefree.gov for more information. [...] Pathway to Excellent Care by the followinglink: [email or web address]://[email or web address]/surgeryguide How To Prepare Your Skin For Surgery [...] Remove nail coverings, artificial nails and nail azerbaijani. Place clean linens on your bed the night before surgery. Shaving: You may shave your face, legs and underarms during your evening shower. Avoid shaving on the day of surgery. If you have questions, please call the CPAP Staff at [phone], Thursday-Thursday 8am-4:30pm. All patients should read the below section: Information on [facility] & the [facility]: Please view [email or web address] (Patient & Visitor Information) for additional details regarding Advanced Directive forms, AWARE, directions, parking information, lodging, Internet access, dining and more. Information on [facility] or [facility] ([facility]): Please view [email or web address] (Patient and Visitor Information) for parking, directions, lodging and more. For MyChart information, to activate account or password recovery, please go to [email or web address] or call [phone] (toll-free: [phone]), Thu- Thursday 8am-5pm. Information for Suicide Prevention: National Suicide Prevention Lifeline (1-759- 261-TALK (0608)) or call or text 737. Chat resources: Musiwave.org. Day of Surgery Arrival Times: For patients having surgery @ [facility] ([facility]), you will be notified of your day of surgery arrival time by either the [facility] Pre-Op OR team or your surgeon's office. If you have not been notified by 1pm THE BUSINESS DAY BEFORE your surgery, please call your surgeon's office Giovanny Tran MD . You may also call [phone] and ask for your surgeon's office. For patients having surgery @ [facility], if you have not been notified of your surgery time by 4pm THE BUSINESS DAY BEFORE surgery, please contact your surgeon's office for day of surgery arrival time Giovanny Tran MD . You may also call [phone] and ask for your surgeon's office. For patients having surgery at [facility], if you have notbeen notified of your surgery time by 4pm THE BUSINESS DAY BEFORE your surgery, please contact yourrgeon's office for day of surgery arrival time Giovanny Tran MD . You may also call [phone] and ask for your surgeon's office. For patients having surgery @ [facility] ([facility]), you will be notified of your day of surgery arrival time by either the [facility] Pre-Op OR team or your surgeon's office. For patients having Ears/Nose Throat Surgery, Urology Surgery or Neuro Spine Surgery, the [facility] Pre-Op Team will contact you by 4pm THE BUSINESS DAY BEFORE surgery. For all other [facility] surgeries, if you have not been notified of your surgery time by 2pm THE BUSINESS DAY BEFORE your surgery, please call your surgeon's office Giovanny Tran MD . They will be able to direct you to who will provide your surgery time. You may also call the surgery center at [phone] and ask for your surgeon's office. For patients having surgery @ [facility], if your surgeon's office or the surgery centerhas not notified you of your surgery time by 3pm THE BUSINESS DAY BEFORE your surgery, please call the surgery center at [phone]. The Center for Preoperative Assessment & Planning (CPAP) does not provide arrival times for theday of surgery or provide the duration of surgery. This information is provided by your surgeon's office or by the center where you are having surgery. We appreciate your understanding. SYSTEMS ENGINEER * Perioperative Nursing Note - Sruthi Chacko RN - 01/03/2025 12:26 PM CST Pre Anesthesia Testing Perioperative Nursing Note Telephone Preoperative Evaluation - TELEPHONE ONLY, NO PHYSICAL EXAM - [facility] CPAP Date: 01/03/25 PAT RN completed assessment [...] Type of Healthcare Directive: Durable power of assistant county attorney for health care Past Medical History: [...] get supplies for about a month now) Communication/Fiberglass Container Winding Operator Needs Communication Needs: None Learning Needs Assessment [...] Phone Call Ride and Caregiver Arranged: Yes Research Scientist Phone Number: Brother in law Osito Discharge Planning Living Arrangements: Alone Support Systems: Family members Assistance Needed: his brother in law will stay with him after procedure Type of Residence: Apartment Patient expects to be discharged to: Private residence Fiberglass Container Winding Operator Needs No Libyan ADDITIONAL COMMENTS/ FOLLOW UP SYSTEMS ENGINEER documented in this encounter Plan of Treatment Not on file documented as of this encounter Visit Diagnoses Not on filedocumented in this encounter Historical Medications * This list may reflect changes made after this encounter. acetaminophen (TYLENOL) 500 mg tablet Take 1 tablet (500 mg total) by mouth every 6 (six) hours as needed for pain added in this encounter Care Teams Spare Parts Clerk Relationship Specialty Start Date End Date Mohit Kat MD [address] [address] PCP - General Family Medicine 10/31/24 documented as of this encounter
--- OUTSIDE RECORDS SUMMARY | 2025-01-23 15:55 | XMS_ITS | Encounter Summary ---
Author Organization [facility] Healthcare Address [address] [place] [address] Care Team Providers Care Tow Operator Name Role Phone No, Physician Primary Care Provider [phone] Mohit Kat MD Primary Care Provider [phone] Encounter Details Date Type Department Care Team ([facility] st Contact Info) Description 06/10/2024 Orders Only [facility] Information Management [address] [place] [address] Scanning, Provider Social History Tobacco Use Types [...] often do you attend chur ch or druze services? Never 01/12/2023 Do you belong to any clubs o r organizations such as advent groups, unions, fraternal or athletic groups, or [...] place to sleep or slept in a correction (including now)? No 01/12/2023 Personal Safety Answer Date Recorded Have you ever been in or are you currently in a harmful physical or emotional relationship or is someone making you feel afraid or unsafe? 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 CONTRACTOR GENERAL BUILDING Gender Identity Not on file Sexual Orientation [...] on filedocumented in this encounter Care Teams Tow Operator Relationship Specialty Start Date End Date No, Physician PCP - General 10/21/23 10/30/24 Mohit Kat MD [address] [address] PCP - General Family Medicine 10/31/24 documented as of this encounter
--- OUTSIDE RECORDS SUMMARY | 2025-01-23 15:55 | XMS_ITS | Encounter Summary ---
Author Organization [facility] Address [facility] [place] [address] Care Team Providers Care Welding Machine Operator Ultrasonic Name Role Phone Mohit Kat MD Primary Care Provider [phone] Caleb Oconnor MD Unavailable Unavailable Thad Oleary PA-C Unavailable [phone] Oscar Rowell MD Primary Care Provider [phone] Mohit Kat MD Primary Care Provider [phone] Encounter Details Date Type Department Care Team (Late st Contact Info) Description 08/03/2015 Abstract [facility] [address] [place] [address] Caleb Oconnor MD Social History Tobacco Use [...] on filedocumented in this encounter Care Teams Welding Machine Operator Ultrasonic Relationship Specialty Start Date End Date Mohit Kat MD PCP - General FAMILY PRACTICE 09/17/15 05/31/18 Oscar Rowell MD [address] [place] [address] PCP - General FAMILY PRACTICE 06/01/18 01/09/20 Mohit Kat MD [address] [place] [address] PCP - General FAMILY PRACTICE 01/10/20 Caleb Oconnor MD EP [facility] CLINICAL CARDIAC ELECTROPHYSIOLOGY 10/03/15 Thad Oleary PA-C [address] [place] [address] Electrophysiology 06/13/16 documented as of this encounter
--- OUTSIDE RECORDS SUMMARY | 2025-01-23 15:55 | XMS_ITS | Clinical Summary ---
Author Organization [facility] Address [address] [place] [address] Care Team Providers Care Motion Picture Scene Builder Name Role Phone Caleb Oconnor MD Unavailable Unavailable Thad Oleary PA-C Unavailable [phone] Mohit Kat MD Primary Care Provider [phone] Allergies No known active allergies Medications traMADol [...] Comments Blood Pressure 160/80 01/10/2020 2:49 PM FINANCIAL REPORTING SPECIALIST Pulse 50 01/10/2020 2:49 PM FINANCIAL REPORTING SPECIALIST EKG Temperature - - Respiratory Rate 20 01/10/2020 2:49 PM FINANCIAL REPORTING SPECIALIST Oxygen Saturation - - Inhaled Oxygen Concentration - - Weight 128.6 kg (283 lb 9.6 oz) 01/10/2020 2:49 PM FINANCIAL REPORTING SPECIALIST Height 185.4 cm (6' 1) 01/10/2020 2:49 PM FINANCIAL REPORTING SPECIALIST Body Mass Index 37.42 01/10/2020 2:49 PM FINANCIAL REPORTING SPECIALIST Plan of Treatment Health Maintenance Due Date [...] to complete this topic Insurance MEDICARE MEDICARE [facility] Care Teams Motion Picture Scene Builder Relationship Specialty Start Date End Date Mohit Kat MD [address] [place] [address] PCP - General FAMILY PRACTICE 01/10/20 Caleb Oconnor MD EP Librarian CLINICAL CARDIAC ELECTROPHYSIOLOGY 10/03/15 Thad Oleary PA-C [address] [place] [address] Electrophysiology 06/13/16
--- OUTSIDE RECORDS SUMMARY | 2025-01-23 15:55 | XMS_ITS | Encounter Summary ---
Author Organization [facility] Healthcare Address [address] [place] [address] Care Team Providers Care Disability Examiner Name Role Phone Ish Falcon MD Primary Care Provider + No, Physician Primary Care Provider [phone] Mohit Kat MD Primary Care Provider [phone] Encounter Details Date Type Department Care Team (Late st Contact Info) Description 01/23/2023 [facility] Initial Outreach [facility] [address] [place] [address] Shahid Schumacher, RN Social History Tobacco Use Types Packs/Day Years Used Date Smoking Tobacco: Former Cigarettes Smokeless Tobacco: Never Alcohol Use Standard Drinks/Week Comments No 0 (1 standard drink = 0.6 oz pur e alcohol) [facility] Utilities Answer Date Recorded In the past 12 months has [employer] electric, gas, oil, or water company threatened [...] often do you attend chur ch or jain services? Never 01/12/2023 Do you belong to any clubs o r organizations such as sikh groups, unions, fraternal or athletic groups, or [...] place to sleep or slept in a fpc (including now)? No 01/12/2023 Personal Safety Answer Date Recorded Have you ever been in or are you currently in a harmful physical or emotional relationship or is someone making you feel afraid or unsafe? 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 Gender Identity Not on file Sexual Orientation Not on file documented as of this encounter Functional Status * In the past year, patient experienced: Question Answer Date of Assessment Author One or more falls in the last year 0 2022 2:12 PM GOLF CADDIE Debbi Martínez MA * BP Location Answer Date of Assessment Author Left arm 01/23/2023 2:14 PM GOLF CADDIE Jose Martínez MA * Alcohol Withdrawal BP Hierarchy Answer Date of Assessment Author 63 01/23/2023 2:14 PM GOLF CADDIE Jose Martínez MA * BP Location Answer Date of Assessment Author Left arm 01/23/2023 2:14 PM GOLF CADDIE Jose Martínez MA documented as of this encounter Plan of Treatment Not on file documented as of this encounter Visit Diagnoses Not on filedocumented in this encounter Care Teams Disability Examiner Relationship Specialty Start Date End Date Ish Falcon MD [address] [place] [address] PCP - General Family Medicine 12/11/21 10/20/23 No, Physician PCP - General 10/21/23 10/30/24 Mohit Kat MD [address] [address] PCP - General Family Medicine 10/31/24 documented as of this encounter
--- OUTSIDE RECORDS SUMMARY | 2025-01-23 15:55 | XMS_ITS | Clinical Summary ---
Author Organization [facility] [address] Address [address] [place] [address] Care Team Providers Care Side Door Worker Name Role Phone Mohit Kat MD Primary Care Provider [phone] Allergies Active Allergy Reactions Criticality Noted Date [...] Severe obesity 08/30/2024 Atypical atrial flutter 04/02/2023 [facility] current use of anticoagulant 4 High risk medication use 04/02/2023 PVC (premature ventricular contraction) 04/02/19 24 Alcohol dependence 01/09/2023 Depression 01/09/2023 Assessment & Plan (01/23/2023 2:49 PM STITCHER OPERATOR): - stable - continue current medication Body [...] 01/10/2022 Assessment & Plan (01/10/2022 10:46 AM STITCHER OPERATOR): - uncontrolled - tx with ciprodex otic Encounter for annual wellness exam in Medicare p atient 01/10/2022 Assessment & Plan (01/10/2022 10:47 AM STITCHER OPERATOR): - Reviewed with the patient BMI, blood [...] 12/11/2021 Assessment & Plan (03/07/2022 10:18 AM STITCHER OPERATOR): - encouraged pt to continue to decrease his ETOH use Assessment & Plan (01/10/2022 10:45 AM STITCHER OPERATOR): - encouraged pt to decrease ETOH use Assessment & Plan (12/11/2021 9:15 AM CDT): - encouraged pt to decrease ETOH use - check labs Moderate episode of recurrent major depressive d isorder 12/11/2021 Assessment & Plan (01/23/2023 2:49 PM STITCHER OPERATOR): - stable - continue current medication Assessment & Plan (12/19/2022 4:09 PM CDT): - stable - continue current medication Assessment & Plan (06/06/2022 12:06 PM CDT): - stable - continue current medication Assessment & Plan (03/07/2022 10:18 AM STITCHER OPERATOR): - stable - continue current medication Assessment & Plan (01/10/2022 10:45 AM STITCHER OPERATOR): - stable - continue current medication Assessment & Plan (12/11/2021 9:15 AM CDT): - stable - continue current medication Essential hypertension 12/11/2021 Assessment & Plan (01/23/2023 2:49 PM STITCHER OPERATOR): - stable - continue current medication Assessment & Plan (12/19/2022 1:58 PM CDT): - uncontrolled - continue losartan and amlodipine - f/u in 1 mo for recheck of BP Assessment & Plan (06/06/2022 12:06 PM CDT): - stable - continue current medication Assessment & Plan (03/07/2022 10:19 AM STITCHER OPERATOR): - BP high today - continue current medication - pt to work on diet and exercise for 3 mo - f/u in 3 mo Assessment & Plan (01/10/2022 10:46 AM STITCHER OPERATOR): - uncontrolled - add lisinopril/HCTZ 20/25mg daily [...] medication Assessment & Plan (01/10/2022 10:45 AM STITCHER OPERATOR): - stable - continue current medication Assessment & Plan (12/11/2021 9:14 AM CDT): - stable - continue current medication - ref to cardiology for eval Paroxysmal atrial fibrillation 10/07/2016 Assessment & Plan (01/23/2023 2:49 PM STITCHER OPERATOR): - stable - continue current medication Assessment & Plan (12/19/2022 4:09 PM CDT): - stable - continue current medication Assessment & Plan (06/06/2022 12:06 PM CDT): - stable - continue current medication Assessment & Plan (03/07/2022 10:18 AM STITCHER OPERATOR): - stable - continue current medication Assessment & Plan (01/10/2022 10:45 AM STITCHER OPERATOR): - stable - continue current medication Assessment & Plan (12/11/2021 9:16 AM CDT): - stable - continue current medication Pure hypercholesterolemia Assessment & Plan (01/23/2023 2:49 PM STITCHER OPERATOR): - stable - continue current medication Assessment & Plan (12/19/2022 4:09 PM CDT): - stable - continue current medication Assessment & Plan (06/06/2022 12:06 PM CDT): - stable - continue current medication Assessment & Plan (03/07/2022 10:19 AM STITCHER OPERATOR): - stable - continue current medication Resolved Problems Problem Noted Date Diagnosed Date Resolved Date Atrial fibrillation with rap id ventricular response 01/09/2023 01/21/2023 Atrial fibrillation with rap id ventricular response 01/21/2022 12/19/2022 Encounters Date Type Department Care Team Description 01/09/2025 Hospital Encounter [facility] Operating Room [address] [facility] [place] [address] Giovanny Tran MD 01/02/2025 11:59 PM STITCHER OPERATOR Anesthesia Event [facility] Operating [facility] [address] [facility] [place] [address] Yadiel Mosley MD 10/31/2024 3:40 PM CDT Office Visit [facility] Medicine Otolaryngology [address], [address] [place] [address] Giovanny Tran MD Left chronic otitis media (Primary Dx); Mixed conductive and sensorineural hearing loss of left ear with restricted hearing of right ear 10/31/2024 3:27 PM CDT - 10/31/2024 11:59 PM CDT Hospital Encounter [facility] [address] [place] [address] Discharge Disposition: Discharge to home or self care 10/31/2024 3:00 PM CDT Procedure visit [facility]ology [address] [place] [address] Amee Senior Au.D. Mixed conductive and sensorineural [...] drink = 0.6 oz pur e alcohol) [facility] Utilities Answer Date Recorded In the past 12 months has [employer], gas, oil, or water [employer] threatened to shut off services in your [...] week 01/12/2023 How often do you attend [facility] or worship services? Never 01/12/2023 Do you belong to any clubs o r organizations such as oriental orthodox groups, unions, fraternal or athletic groups, or [...] on file Legal Sex Male 9:31 PM STITCHER OPERATOR Gender Identity Not on file Sexual Orientation Not on file Last Filed Vital Signs Vital Sign Reading Time Taken Comments Blood Pressure 120/76 09/23/2024 2:42 PM CDT Pulse 60 09/23/2024 2:42 PM CDT Temperature 36 C (96.8 F) 01/23/2023 2:14 PM STITCHER OPERATOR Respiratory Rate 16 01/23/2023 2:14 PM STITCHER OPERATOR Oxygen Saturation 95% 09/23/2024 2:42 PM CDT Inhaled Oxygen Concentration - - Weight 142.9 kg (315 lb) 01/03/2025 12:21 PM STITCHER OPERATOR Height 188 cm (6' 2) 01/03/2025 12:21 PM STITCHER OPERATOR Body Mass Index 40.44 01/03/2025 12:21 PM STITCHER OPERATOR Plan of Treatment Health Maintenance Due Date [...] Completed 01/23/2023 Medical Devices Implanted Type Area Technical Aide Device Identifier Shelf Expiration Date Model / [...] only and have not been reviewed by [facility]. There will be no report generated by a [facility]iologist. Narrative [facility] - 10/31/2024 3:27 PM CDT EXAMINATION: Images For Reference Purposes Only us Giovanny Tran MD IMG CT PROCEDURES Final Re sult [facility] * AudBase Results (10/31/2024 2:28 PM CDT) Provider Scanning AUDIOLOGY SERVICES ORDERABLES Final Result from Last 3 Months Insurance [facility] HUMANA MEDICARE HMO HU[employer]NA MEDICARE HMO Advance Directives For more information, please contact: [phone] Documents on File Type Date Recorded Patient Channeler Insole Expl anation ADVANCE DIRECTIVE 06/02/2022 2:41 PM Power of Intermediate Accountant-Medical * Full Code (Latest Code Status on File) Date Activated Date Inactivated Comments 01/09/2023 4:03 PM 01/12/2023 5:38 PM * Full Code Date Activated Date Inactivated Comments 01/09/2023 1:45 PM 01/09/2023 4:03 PM * Full Code Date Activated Date Inactivated Comments 06/01/2022 11:34 AM 06/05/2022 8:27 PM * Full Code Date Activated Date Inactivated Comments 01/21/2022 4:12 PM 01/23/2022 6:32 PM Care Teams Side Door Worker Relationship Specialty Start Date End Date Mohit Kat MD [address] [address] PCP - General Family Medicine 10/31/24
--- NOTE | 2025-01-23 16:29 | PC.NURSE ---
At 1623 pt brought to room H2 unresponsive, pulseless, not breathing from waiting room. Chest compressions started at 1623, pt placed on lifepak and monitor. IV access established, 18g R AC. EPI given at 1626. RT at bedside assisting with manual ventilations via BVM. Epi given at 1629, pulse check revealed vfib. pt shocked at 1629 with 200J, CPR resumed 1632 epi given, pulse check revealed NSR with a pulse.
--- OUTSIDE RECORDS SUMMARY | 2025-01-23 16:29 | XMS_ITS | Encounter Summary ---
Author Organization [facility] Healthcare Address [address] [place] [address] Care Team Providers Care Intelligence Research Specialist Name Role Phone No, Physician Primary Care Provider [phone] Mohit Kat MD Primary Care Provider [phone] Encounter Details Date Type Department Care Team ([facility] st Contact Info) Description 06/10/2024 Orders Only [facility] [place] [address] [place] [address] Scanning, Provider Social History Tobacco Use Types Packs/Day Years Used Date Smoking Tobacco: Former Cigarettes Smokeless Tobacco: Never Alcohol Use Standard Drinks/Week Comments No 0 (1 standard drink = 0.6 oz pur e alcohol) [facility] Utilities Answer Date Recorded In the [...] often do you attend chur ch or jainism services? Never 01/12/2023 Do you belong to any clubs o r organizations such as orthodoxy groups, unions, fraternal or athletic groups, or [...] place to sleep or slept in a chcf (including now)? No 01/12/2023 Personal Safety Answer Date Recorded Have you ever been in or are you currently in a harmful physical or emotional relationship or is someone making you feel afraid or unsafe? 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 PICKUP DRIVER Gender Identity Not on file Sexual Orientation [...] on filedocumented in this encounter Care Teams Intelligence Research Specialist Relationship Specialty Start Date End Date No, Physician PCP - General 10/21/23 10/30/24 Mohit Kat MD [address] [address] PCP - General Family Medicine 10/31/24 documented as of this encounter
--- OUTSIDE RECORDS SUMMARY | 2025-01-23 16:30 | XMS_ITS | Clinical Summary ---
Author Organization [facility] Address [address] [place] [address] Care Team Providers Care Automatic Toe Laster Name Role Phone Caleb Oconnor MD Unavailable Unavailable Thad Oleary PA-C Unavailable [phone] Mohit Kat MD Primary Care Provider [phone] Allergies No known active allergies Medications traMADol [...] Comments Blood Pressure 160/80 01/10/2020 2:49 PM CAREERS ADVISER Pulse 50 01/10/2020 2:49 PM CAREERS ADVISER EKG Temperature - - Respiratory Rate 20 01/10/2020 2:49 PM CAREERS ADVISER Oxygen Saturation - - Inhaled Oxygen Concentration - - Weight 128.6 kg (283 lb 9.6 oz) 01/10/2020 2:49 PM CAREERS ADVISER Height 185.4 cm (6' 1) 01/10/2020 2:49 PM CAREERS ADVISER Body Mass Index 37.42 01/10/2020 2:49 PM CAREERS ADVISER Plan of Treatment Health Maintenance Due Date [...] to complete this topic Insurance MEDICARE MEDICARE [facility] Care Teams Automatic Toe Laster Relationship Specialty Start Date End Date Mohit Kat MD [address] [place] [address] PCP - General FAMILY PRACTICE 01/10/20 Caleb Oconnor MD EP Sap Bpc Developer CLINICAL CARDIAC ELECTROPHYSIOLOGY 10/03/15 Thad Oleary PA-C [address] [place] [address] Electrophysiology 06/13/16
--- OUTSIDE RECORDS SUMMARY | 2025-01-23 16:30 | XMS_ITS | Encounter Summary ---
Author Organization [facility] Healthcare Address [address] [place] [address] Care Team Providers Care Nephrology Social Worker Name Role Phone Mohit Kat MD Primary Care Provider [phone] Reason for Visit * Auth/Cert (Routine) Specialty Diagnoses / Procedures Referred By Contac t Referred To Contact Diagnoses Left chronic otitis media Left chronic otitis media [H66.92] Procedures DE TMPP MASTOIDECT NTC/RCNSTED CANAL WALL OCR DE GRAFT EAR CRTLG AUTOGENOUS NOSE/EAR TYMPANOPLASTY WITH MASTOIDECTOMY. TYMPANOPLASTY WITH RECONSTRUCTION OSSICULAR CHAIN. Referral ID Status Reason Start Date Expiration Date Visits Re quested Visits Authorized [id number] 1 1 Encounter Details Date Type Department Care Team (Late st Contact Info) Description 01/09/[address] [facility] Operating Room [address] [place] [id number] Giovanny Tran MD [address] [facility] [address] [place] [address] Social History Tobacco Use Types Packs/Day Years Used Date Smoking Tobacco: Former Cigarettes Smokeless Tobacco: Never Alcohol Use Standard Drinks/Week Comments No 0 (1 standard drink = 0.6 oz pur e alcohol) [facility] Utilities Answer Date Recorded In [...] any clubs o r organizations such as jain groups, unions, fraternal or athletic groups, or [...] place to sleep or slept in a fci (including now)? No 01/12/2023 AUDIT-C Answer Date [...] on file Legal Sex Male 9:31 PM OUTSOLE CEMENTER Gender Identity Not on file Sexual Orientation Not on file documented as of this encounter Last Filed Vital Signs Vital Sign Reading Time Taken Comments Blood Pressure - - Pulse - - Temperature - - Respiratory Rate - - Oxygen Saturation - - Inhaled Oxygen Concentration - - Weight 142.9 kg (315 lb) 01/03/2025 12:21 PM OUTSOLE CEMENTER Height 188 cm (6' 2) 01/03/2025 12:21 PM OUTSOLE CEMENTER Body Mass Index 40.44 01/03/2025 12:21 PM OUTSOLE CEMENTER documented in this encounter Functional Status * Alcohol Use Question Answer Date of Assessment Author Q1: How often do you have a drink containing alcohol? 4 or more times a week 01/03/2025 12:18 PM OUTSOLE CEMENTER Sruthi Chacko RN Q3: How often do you have six or more drinks on one occasion? Never 01/03/2025 12:18 PM OUTSOLE CEMENTER Luiza Chacko RN documented as of this encounter Miscellaneous Notes * Pre-Procedure Instructions - Indu Velez NP - 01/04/2025 4:20 PM CST [facility] Planning CPAP Clinic Location: [facility] The night before your surgery: * [...] * If having surgery at [facility], you may want to bring a credit card if you want to use our Mobile Pharmacy for your discharge medications. Mobile pharmacy is not available at [facility], the [facility], or the [place] [facility]. Outpatient Surgery: * You must have [...] tools to help you quit or call 4-426-IDGVLSX ( ). Visit Smokefree.gov for more information. [...] additional action prior to your planned procedure. OLE CEMENTER * Pre-Procedure Instructions - Sruthi Chacko RN [...] remove nail coverings, artificial nails and nail sao tomean prior to the day of surgery. This is to lower your risk of infection and to allow the day of surgery team to monitor your oxygen levels. You should leave your valuables and any jewelry at home. No metal or piercings are allowed in the operating room. You should bring your insurance card, a photo ID (example: Sand Cutter's License) and a method of payment for [...] Chart. If you are having surgery at [facility], please arrive on the day of surgery [...] tools to help you quit or call 4-939-LNTWYAF ( ). Visit Smokefree.gov for more information. [...] to [facility] by the followinglink: [email or web address] How To Prepare Your Skin For [...] Remove nail coverings, artificial nails and nail sao tomean. Place clean linens on your bed the night before surgery. Shaving: You may shave your face, legs and underarms during your evening shower. Avoid shaving on the day of surgery. If you have questions, please call the CPAP Staff at [phone], Thursday-Thursday 8am-4:30pm. All patients should read the below section: Information on [facility]: Please view [email or web address] (Patient & Visitor Information) for additional details regarding Advanced Directive forms, AWARE, directions, parking information, lodging, Internet access, dining and more. Information on [facility] or [facility] ([facility]): Please view [email or web address] (Patient and Visitor Information) for parking, directions, lodging and more. For MyChart information, to activate account or password recovery, please go to [email or web address] or call [phone] (toll-free: [phone]), Thu- Thursday 8am-5pm. Information for Suicide Prevention: National Suicide Prevention Lifeline (6-308- 623-TALK (8658)) or call or text 474. Chat resources: AboutMyStar.org. Day of Surgery Arrival Times: For patients having surgery @ [facility] ([facility]), you will be notified of your day of surgery arrival time by either the [facility] Pre-Op OR team or your surgeon's office. If you have not been notified by 1pm THE BUSINESS DAY BEFORE your surgery, please call your surgeon's office Giovanny Tran MD . You may also call [phone] and ask for your surgeon's office. For patients having surgery @ [facility], if you have not been notified of your surgery time by 4pm THE BUSINESS DAY BEFORE surgery, please contact your surgeon's office for day of surgery arrival time Giovanny Tran MD . You may also call [phone] and ask for your surgeon's office. For patients having surgery at [facility] [place], if you have notbeen notified of your surgery time by 4pm THE BUSINESS DAY BEFORE your surgery, please contact yourrgeon's office for day of surgery arrival time Giovanny Tran MD . You may also call [phone] and ask for your surgeon's office. For patients having surgery @ [facility] ([facility]), you will be notified of your day of surgery arrival time by either the [facility] Pre-Op OR team or your surgeon's office. For patients having Ears/Nose Throat Surgery, Urology Surgery or Neuro Spine Surgery, the [facility] Pre-Op Team will contact you by 4pm THE BUSINESS DAY BEFORE surgery. For all other [facility] surgeries, if you have not been notified of your surgery time by 2pm THE BUSINESS DAY BEFORE your surgery, please call your surgeon's office Giovanny Tran MD . They will be able to direct you to who will provide your surgery time. You may also call the surgery center at [phone] and ask for your surgeon's office. For patients having [facility] @ [facility], if your surgeon's office or the surgery centerhas not notified you of your surgery time by 3pm THE BUSINESS DAY BEFORE your surgery, please call the surgery center at [phone]. The Center for Preoperative Assessment & Planning (CPAP) does not provide arrival times for theday of surgery or provide the duration of surgery. This information is provided by your surgeon's office or by the center where you are having surgery. We appreciate your understanding. OLE CEMENTER * Perioperative Nursing Note - Sruthi Chacko RN - 01/03/2025 12:26 PM CST Pre Anesthesia Testing Perioperative Nursing Note Telephone Preoperative Evaluation - TELEPHONE ONLY, NO PHYSICAL EXAM - [facility] CPAP Date: 01/03/25 PAT RN completed assessment [...] Type of Healthcare Directive: Durable power of commercial litigation attorney for health care Past Medical History: [...] get supplies for about a month now) Communication/Systems Accountant Needs Communication Needs: None Learning Needs Assessment [...] Phone Call Ride and Caregiver Arranged: Yes [employer] J2Ee Lead Phone Number: Brother in law Osito Discharge Planning Living Arrangements: Alone Support Systems: Family members Assistance Needed: his brother in law will stay with him after procedure Type of Residence: Apartment Patient expects to be discharged to: Private residence Systems Accountant Needs No Pakistani ADDITIONAL COMMENTS/ FOLLOW UP OLE CEMENTER documented in this encounter Plan of Treatment Not on file documented as of this encounter Visit Diagnoses Not on filedocumented in this encounter Historical Medications * This list may reflect changes made after this encounter. acetaminophen (TYLENOL) 500 mg tablet Take 1 tablet (500 mg total) by mouth every 6 (six) hours as needed for pain added in this encounter Care Teams Nephrology Social Worker Relationship Specialty Start Date End Date Mohit Kat MD [address] [address] PCP - General Family Medicine 10/31/24 documented as of this encounter
--- OUTSIDE RECORDS SUMMARY | 2025-01-23 16:30 | XMS_ITS | Encounter Summary ---
Author Organization [facility] Healthcare Address [address] [place] [address] Care Team Providers Care Superintendent Power Name Role Phone Ish Falcon MD Primary Care Provider + No, Physician Primary Care Provider [phone] Mohit Kat MD Primary Care Provider [phone] Encounter Details Date Type Department Care Team (Late st Contact Info) Description 01/23/2023 [facility] Initial Outreach [facility] [address] [place] [address] Shahid Schumacher, RN Social History Tobacco Use Types Packs/Day Years Used Date Smoking Tobacco: Former Cigarettes Smokeless Tobacco: Never Alcohol Use Standard Drinks/Week Comments No 0 (1 standard drink = 0.6 oz pur e alcohol) [facility] Utilities Answer Date Recorded In the past 12 months has [employer], gas, oil, or water company threatened [...] often do you attend chur ch or spiritism services? Never 01/12/2023 Do you belong to any clubs o r organizations such as yazdanism groups, unions, fraternal or athletic groups, or [...] place to sleep or slept in a long-term (including now)? No 01/12/2023 Personal Safety Answer Date Recorded Have you ever been in or are you currently in a harmful physical or emotional relationship or is someone making you feel afraid or unsafe? 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 CHIEF PASSENGER SHIP STEWARD/STEWARDESS Gender Identity Not on file Sexual Orientation Not on file documented as of this encounter Functional Status * In the past year, patient experienced: Question Answer Date of Assessment Author One or more falls in the last year 0 2022 2:12 PM CHIEF PASSENGER SHIP STEWARD/STEWARDESS Debbi Martínez MA * BP Location Answer Date of Assessment Author Left arm 01/23/2023 2:14 PM CHIEF PASSENGER SHIP STEWARD/STEWARDESS Jose Martínez MA * Alcohol Withdrawal BP Hierarchy Answer Date of Assessment Author 63 01/23/2023 2:14 PM CHIEF PASSENGER SHIP STEWARD/STEWARDESS Jose Martínez MA * BP Location Answer Date of Assessment Author Left arm 01/23/2023 2:14 PM CHIEF PASSENGER SHIP STEWARD/STEWARDESS Jose Martínez MA documented as of this encounter Plan of Treatment Not on file documented as of this encounter Visit Diagnoses Not on filedocumented in this encounter Care Teams Superintendent Power Relationship Specialty Start Date End Date Ish Falcon MD [address] [place] [address] PCP - General Family Medicine 12/11/21 10/20/23 No, Physician PCP - General 10/21/23 10/30/24 Mohit Kat MD [address] [address] PCP - General Family Medicine 10/31/24 documented as of this encounter
--- OUTSIDE RECORDS SUMMARY | 2025-01-23 16:30 | XMS_ITS | Clinical Summary ---
Author Organization [facility] [address] Address [address] [place] [address] Care Team Providers Care Tobacco Farmworker Name Role Phone Mohit Kat MD Primary Care Provider [phone] Allergies Active Allergy Reactions Criticality Noted Date [...] Severe obesity 08/30/2024 Atypical atrial flutter 04/02/2023 group home current use of anticoagulant 4 High risk medication use 04/02/2023 PVC (premature ventricular contraction) 04/02/19 24 Alcohol dependence 01/09/2023 Depression 01/09/2023 Assessment & Plan (01/23/2023 2:49 PM OUTSIDE OPERATOR): - stable - continue current medication [...] 01/10/2022 Assessment & Plan (01/10/2022 10:46 AM OUTSIDE OPERATOR): - uncontrolled - tx with ciprodex otic Encounter for annual wellness exam in Medicare p atient 01/10/2022 Assessment & Plan (01/10/2022 10:47 AM OUTSIDE OPERATOR): - Reviewed with the patient BMI, [...] 12/11/2021 Assessment & Plan (03/07/2022 10:18 AM OUTSIDE OPERATOR): - encouraged pt to continue to decrease his ETOH use Assessment & Plan (01/10/2022 10:45 AM OUTSIDE OPERATOR): - encouraged pt to decrease ETOH use Assessment & Plan (12/11/2021 9:15 AM CDT): - encouraged pt to decrease ETOH use - check labs Moderate episode of recurrent major depressive d isorder 12/11/2021 Assessment & Plan (01/23/2023 2:49 PM OUTSIDE OPERATOR): - stable - continue current medication Assessment & Plan (12/19/2022 4:09 PM CDT): - stable - continue current medication Assessment & Plan (06/06/2022 12:06 PM CDT): - stable - continue current medication Assessment & Plan (03/07/2022 10:18 AM OUTSIDE OPERATOR): - stable - continue current medication Assessment & Plan (01/10/2022 10:45 AM OUTSIDE OPERATOR): - stable - continue current medication Assessment & Plan (12/11/2021 9:15 AM CDT): - stable - continue current medication Essential hypertension 12/11/2021 Assessment & Plan (01/23/2023 2:49 PM OUTSIDE OPERATOR): - stable - continue current medication Assessment & Plan (12/19/2022 1:58 PM CDT): - uncontrolled - continue losartan and amlodipine - f/u in 1 mo for recheck of BP Assessment & Plan (06/06/2022 12:06 PM CDT): - stable - continue current medication Assessment & Plan (03/07/2022 10:19 AM OUTSIDE OPERATOR): - BP high today - continue current medication - pt to work on diet and exercise for 3 mo - f/u in 3 mo Assessment & Plan (01/10/2022 10:46 AM OUTSIDE OPERATOR): - uncontrolled - add lisinopril/HCTZ 20/25mg [...] medication Assessment & Plan (01/10/2022 10:45 AM OUTSIDE OPERATOR): - stable - continue current medication Assessment & Plan (12/11/2021 9:14 AM CDT): - stable - continue current medication - ref to cardiology for eval Paroxysmal atrial fibrillation 10/07/2016 Assessment & Plan (01/23/2023 2:49 PM OUTSIDE OPERATOR): - stable - continue current medication Assessment & Plan (12/19/2022 4:09 PM CDT): - stable - continue current medication Assessment & Plan (06/06/2022 12:06 PM CDT): - stable - continue current medication Assessment & Plan (03/07/2022 10:18 AM OUTSIDE OPERATOR): - stable - continue current medication Assessment & Plan (01/10/2022 10:45 AM OUTSIDE OPERATOR): - stable - continue current medication Assessment & Plan (12/11/2021 9:16 AM CDT): - stable - continue current medication Pure hypercholesterolemia Assessment & Plan (01/23/2023 2:49 PM OUTSIDE OPERATOR): - stable - continue current medication Assessment & Plan (12/19/2022 4:09 PM CDT): - stable - continue current medication Assessment & Plan (06/06/2022 12:06 PM CDT): - stable - continue current medication Assessment & Plan (03/07/2022 10:19 AM OUTSIDE OPERATOR): - stable - continue current medication Resolved Problems Problem Noted Date Diagnosed Date Resolved Date Atrial fibrillation with rap id ventricular response 01/09/2023 01/21/2023 Atrial fibrillation with rap id ventricular response 01/21/2022 12/19/2022 Encounters Date Type Department Care Team Description 01/09/2025 Hospital Encounter [facility] Operating Room [address] [facility] [place] [address] Giovanny Tran MD 01/02/2025 11:59 PM OUTSIDE OPERATOR Anesthesia Event [facility] Operating Room [address] [place] [facility] [place] [phone] Yadiel Mosley MD 10/31/2024 3:40 PM CDT Office Visit [facility] Otol[facility]ology [address], [address] [place] [phone] Giovanny Tran MD Left chronic otitis media (Primary Dx); Mixed conductive and sensorineural hearing loss of left ear with restricted hearing of right ear 10/31/2024 3:27 PM CDT - 10/31/2024 11:59 PM CDT Hospital Encounter [facility] [address] [place] [address] Discharge Disposition: Discharge to home or self care 10/31/2024 3:00 PM CDT [facility] [address] [place] [phone] Amee Senior Au.D. Mixed conductive and sensorineural [...] drink = 0.6 oz pur e alcohol) [facility] Utilities Answer Date Recorded In the past 12 months has [employer], gas, oil, or water surespot threatened to shut off services in your [...] week 01/12/2023 How often do you attend [facility] or gnosticism services? Never 01/12/2023 Do you belong to any clubs o r organizations such as christianity groups, unions, fraternal or athletic groups, or [...] place to sleep or slept in a mcc (including now)? No 01/12/2023 AUDIT-C Answer Date [...] on file Legal Sex Male 9:31 PM OUTSIDE OPERATOR Gender Identity Not on file Sexual Orientation Not on file Last Filed Vital Signs Vital Sign Reading Time Taken Comments Blood Pressure 120/76 09/23/2024 2:42 PM CDT Pulse 60 09/23/2024 2:42 PM CDT Temperature 36 C (96.8 F) 01/23/2023 2:14 PM OUTSIDE OPERATOR Respiratory Rate 16 01/23/2023 2:14 PM OUTSIDE OPERATOR Oxygen Saturation 95% 09/23/2024 2:42 PM CDT Inhaled Oxygen Concentration - - Weight 142.9 kg (315 lb) 01/03/2025 12:21 PM OUTSIDE OPERATOR Height 188 cm (6' 2) 01/03/2025 12:21 PM OUTSIDE OPERATOR Body Mass Index 40.44 01/03/2025 12:21 PM OUTSIDE OPERATOR Plan of Treatment Health Maintenance Due [...] Completed 01/23/2023 Medical Devices Implanted Type Area Mining Consultant Device Identifier Shelf Expiration Date Model / [...] only and have not been reviewed by [facility]. There will be no report generated by a [facility]iologist. Narrative [facility] - 10/31/2024 3:27 PM CDT EXAMINATION: Images For Reference Purposes Only us Giovanny Tran MD IMG CT PROCEDURES Final Re sult [facility] * AudBase Results (10/31/2024 2:28 PM CDT) Provider Scanning AUDIOLOGY SERVICES ORDERABLES Final Result from Last 3 Months Insurance [facility] HU[employer] MEDICARE HMO HU[employer] MEDICARE HMO Advance Directives For more information, please contact: [phone] Documents on File Type Date Recorded Patient Level Designer Expl anation ADVANCE DIRECTIVE 06/02/2022 2:41 PM Power of Rn Disease Management-Medical * Full Code (Latest Code Status on File) Date Activated Date Inactivated Comments 01/09/2023 4:03 PM 01/12/2023 5:38 PM * Full Code Date Activated Date Inactivated Comments 01/09/2023 1:45 PM 01/09/2023 4:03 PM * Full Code Date Activated Date Inactivated Comments 06/01/2022 11:34 AM 06/05/2022 8:27 PM * Full Code Date Activated Date Inactivated Comments 01/21/2022 4:12 PM 01/23/2022 6:32 PM Care Teams Tobacco Farmworker Relationship Specialty Start Date End Date Mohit Kta MD [address] [address] PCP - General Family Medicine 10/31/24
[2025-01-23] MEDS: RAPID SEQUENCE INTUBATION KIT 1 EACH (16:36)
--- NOTE | 2025-01-23 16:36 | PC.NURSE ---
Dr. Hauser attempting intubation. VORB to administer 20mg etomidate and 100mg of rocuronium. etomidate given at 1639. rocuronium given at 1639. 7.[address] Hauser with positive color change from CO2 detector at 27 at the lip Per Dr. Hauser VORB Levophed started at 5mcg/min at 1638 & amiodarone 360mg started at 1mg/min at 1643. Pt R wrist splint removed at 1641. Pt hand very ecchymotic and swollen.
--- NOTE | 2025-01-23 16:45 | ECG_ITS ---
Test Date: 2025-01-23 16:35:04 Measurements Intervals Palmer Rate: 84 P: 0 OH: 0 QRS: 104 QRSD: 214 T: 0 QT: 465 QTc: 550 Interpretive Statements ATRIAL FIBRILLATION RIGHT AXIS DEVIATION IVCD, FEATURES OF BOTH RBBB, LBBB BASELINE ARTIFACT- I, II, III, AVR, AVF, V1-V3 ABNORMAL ECG Compared to ECG 01/18/2025 09:57:07 SINUS BRADYCARDIA NO LONGER PRESENT Intraventricular conduction delay now present Electronically Signed On 01-23-2025 18:14:16 CASH ANALYST by Joss Cast D.O.
--- NOTE | 2025-01-23 16:45 | ECG_ITS ---
Test Date: 2025-01-23 16:46:17 Measurements Intervals [place] Rate: 66 P: 0 VT: 0 QRS: 104 QRSD: 161 T: -13 QT: 344 QTc: 362 Interpretive Statements WANDERING PACEMAKER RIGHT AXIS DEVIATION RIGHT BUNDLE BRANCH BLOCK BORDERLINE ST-T WAVE ABNORMALITY- LATERAL LEADS BASELINE ARTIFACT- I, II, AVR, AVL, AVF, V1-V3 ABNORMAL ECG Compared to ECG 01/23/2025 16:35:04 ATRIAL FIBRILLATION NO LONGER PRESENT Electronically Signed On 01-23-2025 18:16:56 TRANSIT PLANNING MANAGER by Joss Cast D.O.
[2025-01-23 16:56] LABS: Hematocrit 49.3 % (42.0-52.0); Hemoglobin 16.1 g/dL (14.0-18.0); Immature Granulocyte Percent A 0.2 % (0-0.5); Lymphocytes Absolute Auto 5.10 K/mm3 (0.9-3.2); Mean Corpuscular HGB Conc 32.7 g/dl (32-36); Mean Corpuscular Hemoglobin 33.3 pg (26-34); Mean Corpuscular Volume 101.9 fl (80-100); Nucleated Red Blood Cells Absolute Auto 0.000 K/mm3 (0.0-0.012); Nucleated Red Blood Cells Perc 0.0 % (0.0-0.2); Platelet Count Result 268 k/mm3 (150-375); Red Blood Count 4.84 M/mm3 (4.6-6.20); White Blood Count 10.0 K/mm3 (4.5-10.0)
[2025-01-23 17:07] LABS: INR 1.2; Prothrombin Time 15.5 Seconds (11.1-14.7)
[2025-01-23 17:08] LABS: Alanine Aminotransferase 46 U/L (6-50); Albumin Level 4.6 g/dL (3.5-5.1); Alkaline Phosphatase 70 U/L (38-126); Anion Gap 19 mmol/L (4-12); Aspartate Amino Transferase 55 U/L (17-59); Bilirubin,Total 1.7 mg/dL (0.2-1.3); Blood Urea Nitrogen 7 mg/dL (9-20); Calcium 9.9 mg/dL (8.4-10.2); Carbon Dioxide 21 mmol/L (22-30); Chloride 102 mmol/L (98-107); Estimated Glomerular Filt Rate > 60; Glucose 109 mg/dL (65-110); Partial Thromboplastin Time 27.3 Seconds (22.3-36.8); Potassium 3.7 mmol/L (3.4-5.0); Sodium 142 mmol/L (137-145); Total Protein 7.9 g/dL (6.3-8.2)
[2025-01-23] MEDS: FENTANYL 2,500MCG/NS250ML(*CRX 2,500 MCG/250 ML BAG IV CONT ×2 (17:16→23:51)
[2025-01-23 17:21] LABS: Troponin I 0.041 ng/mL (0.000-0.034)
--- NOTE | 2025-01-23 17:25 | PC.NURSE ---
Levophed stopped at 1700
[2025-01-23] MEDS: FUROSEMIDE INJ 40 MG/4 ML VIAL IV PUSH (17:43)
[2025-01-23] MEDS: PROPOFOL IV EMULSION 100 ML 8.16 MG IV CONT (19:00)
[2025-01-23 19:02] LABS: Triglycerides 186 mg/dL (<150)
[2025-01-23 19:11] LABS: NT Pro B Type Natriuretic Pept 670 pg/mL (19.9-100)
[2025-01-23] MEDS: ASPIRIN 300 MG SUPPOSITORY RECTAL (19:24)
--- NOTE | 2025-01-23 19:30 | WPCEDHO ---
ED Hand Off Checklist All vitals saved: yes IV Site documented: yes All med administrations documented: yes -- have not started heparin drip, waiting on CT results to rule out bleeding Triage Note Triage Note Pt to ED from home via EMS co 01/23/25 17:28 dizziness that he states started this morning and that it is intermittent. Pt states he also has nausea. Pt A&Ox3 on arrival to ED. Pt states I was here last week for a fall, I hope they keep me this time since they brought me in, I don't have the money. Pt has OCL splint to R arm and bruising to R face from previous fall Pt brought to room H2 d/t unresponsiveness. See note Allergies hydrochlorothiazide Allergy (Intermediate, Verified 01/23/25 15:44) Unknown lisinopril Allergy (Intermediate, Verified 01/23/25 15:44) Unknown was hospitalized after taking Family History (Last Reviewed 09/19/24 @ 11:32 by Jason Watts M.D.) Mother Patient's mother is Acute myocardial infarction Skin cancer Father Family history of cardiovascular disease Acute myocardial infarction Administered/Completed Medications Discontinued Medications Aspirin (Aspirin 300 Mg Suppository) 300 mg RECTAL ONCE ONE Stop: 01/23/25 17:11 Last Admin: 01/23/25 19:24 Dose: 300 mg Documented By: EMILY Furosemide (Furosemide Inj 40 Mg/4 Ml Vial) 40 mg IV PUSH ONCE STA Stop: 01/23/25 17:16 Last Admin: 01/23/25 17:43 Dose: 40 mg Documented By: ANNEL Heparin Sodium (Porcine) (Heparin Sodium 5,000 Units/Ml Vial) 4,000 units IV PUSH ONCE ONE Stop: 01/23/25 17:11 Last Admin: 01/23/25 17:19 Dose: 4,000 units Documented By: ANNEL Co-signed By: EMILY Fentanyl Citrate (Fentanyl 2,500 Mcg/Ns 250 Ml) 2,500 mcg in 250 mls @ 2.5 mls/hr IV CONT .Q72H STA; Protocol Stop: 01/26/25 17:07 Last Titration: 01/23/25 18:56 Dose: Infused Documented By: Admin: 01/23/25 17:16 Dose: 25 mcg/hr, 2.5 mls/hr Documented By: ANNEL Co-signed By: EMILY Propofol (Diprivan) 100 mls @ 4.08 mls/hr IV CONT .[id number] STA; Protocol Stop: 01/23/25 18:10 Last Admin: 01/23/25 19:00 Dose: 10 mcg/kg/min, 8.16 mls/hr Documented By: EMILY Co-signed By: ANNEL Miscellaneous Information (Please Enter Patient Weight For Medication Dosing) 1 each XX CLARIFY JOCELYNE Stop: 02/22/25 00:00 Last Admin: 01/23/25 19:26 Dose: Not Given Documented By: EMILY Non-Admin Reason: Order Discontinued Succinylcholine Chloride (Rapid Sequence Intubation Kit) Confirm Administered Dose 1 each .ROUTE .STK-MED ONE Stop: 01/23/25 16:37 Last Admin: 01/23/25 16:36 Dose: 1 each Documented By: ANNEL Notes 01/23/25 17:25 Nurse Note by Jada Marin Levophed stopped at 1700 Initialized on 01/23/25 17:25 - END OF NOTE 01/23/25 16:36 Nurse Note by Jada Marin Dr. attempting intubation. VORB to administer 20mg etomidate and 100mg of rocuronium. etomidate given at 1639. rocuronium given at 1639. 7.[address] Hauser with positive color change from CO2 detector at 27 at the lip Per Dr. Hauser VORB Levophed started at 5mcg/min at 1638 & amiodarone 360mg started at 1mg/min at 1643. Pt R wrist splint removed at 1641. Pt hand very ecchymotic and swollen. Initialized on 01/23/25 16:36 - END OF NOTE 01/23/25 16:29 Nurse Note by Jada Marin At 1623 pt brought to room H2 unresponsive, pulseless, not breathing from waiting room. Chest compressions started at 1623, pt placed on lifepak and monitor. IV access established, 18g R AC. EPI given at 1626. RT at bedside assisting with manual ventilations via BVM. Epi given at 1629, pulse check revealed vfib. pt shocked at 1629 with 200J, CPR resumed 1632 epi given, pulse check revealed NSR with a pulse. Initialized on 01/23/25 16:29 - END OF NOTE Interventions/Assessments IV / Saline Lock, Insert Start: 01/23/25 15:25 Freq: Status: Active Protocol: Document 01/23/25 19:26 EMILY (Rec: 01/23/25 19:27 EMILY [id number]) IV Assessment Peripheral Access Left Antecubital IV Catheter Access Discontinued Access IV Site Assessment Infiltrated IV Care and Catheter Removed Intact,Dressing Applied, Dated, Timed, Maintenance and Initialed Last Vital Signs Temperature 98.8 F 01/23/25 19:25 Pulse Rate 76 01/23/25 19:25 Respiratory Rate 21 H 01/23/25 19:25 Pulse Oximetry 97 01/23/25 19:25 Blood Pressure 115/75 01/23/25 19:25 Blood Pressure Mean 83 01/23/25 19:25 Blood Pressure Position Sitting 01/23/25 16:05 Oxygen Delivery Mechanical Ventilation 01/23/25 18:49 Fraction of Inspired Oxygen 100 01/23/25 18:49 Weight 149.6 kg 01/23/25 18:46 Last Result - Abnormals Only MCV 101.9 fl (80-100) H 01/23/25 16:50 Neut % (Auto) 34.8 % (45.5-73.1) L 01/23/25 16:50 Lymph % (Auto) 51.3 % (18.3-44.2) H 01/23/25 16:50 [place] % (Auto) 12.2 % (2.6-8.5) H 01/23/25 16:50 Lymph # (Auto) 5.10 K/mm3 (0.9-3.2) H 01/23/25 16:50 [place] # (Auto) 1.2 K/mm3 (0.1-0.6) H 01/23/25 16:50 PT 15.5 Seconds (11.1-14.7) H 01/23/25 16:50 Carbon Dioxide 21 mmol/L (22-30) L 01/23/25 16:50 Anion Gap 19 mmol/L (4-12) H 01/23/25 16:50 BUN 7 mg/dL (9-20) L 01/23/25 16:50 POC Capillary Glucose 179 mg/dl (65-105) H 01/23/25 16:40 Lactic Acid 11.1 mmol/L (0.7-2.0) H* 01/23/25 17:46 Total Bilirubin 1.7 mg/dL (0.2-1.3) H 01/23/25 16:50 Troponin I 0.041 ng/mL (0.000-0.034) H* 01/23/25 16:50 NT-Pro-B Natriuret Pep 670 pg/mL (19.9-100) H 01/23/25 16:50 Triglycerides 186 mg/dL (<150) H 01/23/25 16:50 Most Recent Suicide Severity Rating Suicide Severity Rating NO RISK INDICATED 01/23/25 15:37
--- NOTE | 2025-01-23 19:43 | ED.SYNCOPE ---
HPI - Syncope General Chief Complaint: Dizziness Stated Complaint: dizzy Time Seen by Provider: 01/23/25 16:46 History of Present Illness HPI narrative: Patient had a fall recently, since then has been feeling dizzy, and nauseous. Called EMS today because he was feeling dizzy and nauseous. Related Data Home Medications ?Medication ?Instructions ?Recorded ?Confirmed ?Last Taken ?Type cholecalciferol (vitamin D3) 125 5,000 unit PO DAILY 04/04/19 09/19/24 05/28/21 History mcg (5,000 unit) tablet cyanocobalamin (vitamin B-12) 1,000 mcg PO DAILY 10/29/23 09/19/24 Unknown History 1,000 mcg tablet Allergies Allergy/AdvReac Type Severity Reaction Status Date / Time hydrochlorothiazide Allergy Intermediate Unknown Verified 01/23/25 15:44 lisinopril Allergy Intermediate Unknown Verified 01/23/25 15:44 Review of Systems Review of Systems: ROS unobtainable: Yes unobtainable due to medical condition PMFSH Past Medical History Medical History Morbid obesity with BMI of 40.0-44.9, adult Folate deficiency anemia Level normal at 16.2 with hemoglobin 15.7 on 06/10/2024. Encounter for prostate cancer screening PSA 1.53n 06/10/24. 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 APAP at 5-16 cm of water pressure 06/04/2020 Abnormal fasting glucose (04/03/20) Fasting glucose 105, hemoglobin A1c 5.9 with microalbumin ratio of 6 with GFR 87 on 06/10/2024. BMI 37.0-37.9, adult Chronic anxiety Chronic depression Eczema Vitamin B12 deficiency anemia Level normal at 1457 with hemoglobin 15.7 on 06/10/2024. Vitamin D deficiency, unspecified Level normal at 36 on 06/10/2024. Hypogonadism male Chronic sinusitis Chronic serous otitis media of right ear Bilateral hearing loss Chronic bilateral low back pain with right-sided sciatica Surgical History Surgical History History of radiofrequency ablation procedure for cardiac arrhythmia A flutter ablation, [facility] Status post cataract extraction of both eyes with insertion of intraocular lens History of cardiac radiofrequency ablation 5 years ago for AFib History of bowel resection 19 years old Family History Family History Mother Patient's mother is , Onset Age: 92 Acute myocardial infarction Skin cancer Father Family history of cardiovascular disease, Onset Age: 57 Acute myocardial infarction Social History Social History Social History: He drinks 2-3 bottles of wine a night. No drug use except occasional marijuana use. Quit tobacco at age 28 after smoking 2 packs a day for 10 years. He lives alone. He is but it sounds like he still is in contact with his ex- quite frequently lives in [facility]. He has 2 step children. He has 1 son who is still living in a daughter who of alcohol and drug use. Code status: full code Surrogate decision maker for healthcare: Juan Pablo (son) Smoking packs per day: 2 Smoking cigarettes per day: 40.0 Years smoked: 11 Smoking pack-years: 22.00 Smoking status: Former smoker Tobacco type: cigarettes and cigars Alcohol intake: current Drinks per week: 70 Alcohol use details: beer or wine Varies, sometimes has a bottle of wine with his meal daily Substance use: former Substance use type: marijuana Spiritual care concerns: No Exam Narrative: EXAMINATION OF ORGAN SYSTEMS/BODY AREAS: Constitutional: Vital signs per nursing GENERAL: Unresponsive HEAD: Old-appearing bruises EYES: Pupils fixed and dilated ENT: Old bruises LUNGS: No spontaneous respirations HEART: Pulseless ABD: Soft EXT: Right arm in splint SKIN: Old appearing bruises NEURO: Unresponsive Course Vital Signs Vital signs: Vital Signs Temperature 97.5 F L 01/23/25 15:37 Pulse Rate 62 01/23/25 15:37 Respiratory Rate 18 01/23/25 15:37 Blood Pressure 146/75 H 01/23/25 15:37 Pulse Oximetry 96 01/23/25 15:37 Oxygen Delivery Room Air 01/23/25 15:37 Temperature 98.8 F 01/23/25 19:25 Pulse Rate 76 01/23/25 19:25 Respiratory Rate 21 H 01/23/25 19:25 Blood Pressure 115/75 01/23/25 19:25 Pulse Oximetry 97 01/23/25 19:25 Oxygen Delivery Mechanical Ventilation 01/23/25 18:49 Fraction of Inspired Oxygen 100 01/23/25 18:49 Procedures Intubation Intubation #1: Intubation Date: 01/23/25 Intubation Time: 16:50 sedative: Etomidate Mg Given: 20 paralytic: Rocuronium Mg Given: 100 Laryngoscope: fiber optic video scope Tube Size (cm): 7.5 Method of Intubation: orotracheal Number of Attempts: 1 Tube Secured Depth (cm): 25 Tube Secured Location: lips Tube Placement Confirmation: visualized tube passing through cords, equal breath sounds bilaterally, no breath sounds over epigastrium and confirmation by capnometry Patient Tolerated Procedure: well and no complications Critical Care Time Critical Care Time Critical Care Time: Yes Indication: Cardiac arrest Initial evaluation, discuss w/ involved parties, attempting to gather old records: 10 minutes Documenting medical record: 10 minutes Review of results (EKG's, labs, imaging): 5 minutes Serial repeat bedside evaluation: 10 minutes Discussing case with multiple memebers of the care team and consultants: 5 minutes Total Critical Care Time: 40 Discharge Plan Discharge Clinical Impression: Cardiac arrest, Cardiac arrest with ventricular fibrillation, Acidosis, lactic Patient Disposition: Still a Patient Condition: Critical MDM MDM Narrative Medical decision making narrative: Patient presents here after he was feeling dizzy and nauseous after having a recent fall for which he had been evaluated here with normal imaging. Unfortunately he was found to become unresponsive while he was in the waiting room, was immediately taken back in room, I was with patient at bedside, monitors placed, IV started, CPR initiated with dose of epi, I did note on monitors he appear to be in fine VFib, shocked and amiodarone started, with almost immediate ROSC. Intubated by myself and EKG initially very concerning for STEMI, relief driller kindly came to bedside very quickly, and repeat EKG no longer ischemic. No indication for research laboratory technician per interventionalist. Labs significant for lactic of 11, troponin 0.041, discussed this with reel film inspector who requested CT head, chest and abdomen and pelvis, and accepted admission, discussed with hospitalist for admission. Son is in [facility] and updated on condition. Patient reportedly has history of alcohol and tobacco use. CTs return with possible bilateral pneumonia, antibiotics started. Differential Diagnosis Differential Diagnosis: PE less likely as patient on Eliquis, arrhythmia, STEMI, brain bleed or CVA, etc. Lab Data 01/23/25 16:50 01/23/25 16:50 Labs: Lab Results 01/23/25 01/23/25 01/23/25 Range/Units 16:40 16:50 17:46 WBC 10.0 (4.5-10.0) K/mm3 RBC 4.84 (4.6-6.20) M/mm3 Hgb 16.1 (14.0-18.0) g/dL Hct 49.3 (42.0-52.0) % MCV 101.9 H (80-100) fl MCH 33.3 (26-34) pg MCHC 32.7 (32-36) g/dl RDW 12.9 (11.5-14.5) % Plt Count 268 (150-375) k/mm3 MPV 10.1 (7.4-10.4) fl Immature Gran % (Auto) 0.2 (0-0.5) % Neut % (Auto) 34.8 L (45.5-73.1) % Lymph % (Auto) 51.3 H (18.3-44.2) % [place] % (Auto) 12.2 H (2.6-8.5) % Eos % (Auto) 1.1 (0-4.4) % Baso % (Auto) 0.4 (0.2-1.2) % Lymph # (Auto) 5.10 H (0.9-3.2) K/mm3 [place] # (Auto) 1.2 H (0.1-0.6) K/mm3 Eos # (Auto) 0.1 (0-0.3) K/mm3 Baso # (Auto) 0.0 (0.0-0.1) K/mm3 Abs Immat Gran (auto) 0.02 (0.00-0.031) K/mm3 Absolute Neuts (auto) 3.5 (1.3-6.7) K/mm3 Absolute Nucleated RBC 0.000 (0.0-0.012) K/mm3 Nucleated RBC % 0.0 (0.0-0.2) % PT 15.5 H (11.1-14.7) Seconds INR 1.2 APTT 27.3 (22.3-36.8) Seconds Sodium 142 (137-145) mmol/L Potassium 3.7 (3.4-5.0) mmol/L Chloride 102 (98-107) mmol/L Carbon Dioxide 21 L (22-30) mmol/L Anion Gap 19 H (4-12) mmol/L BUN 7 L (9-20) mg/dL Creatinine 1.11 (0.7-1.3) mg/dL Estim Creat Clear Calc Not Reportable Estimated GFR > 60 (59 - ) Glucose 109 (65-110) mg/dL POC Capillary Glucose 179 H (65-105) mg/dl Lactic Acid 11.1 H* (0.7-2.0) mmol/L Calcium 9.9 (8.4-10.2) mg/dL Total Bilirubin 1.7 H (0.2-1.3) mg/dL AST 55 (17-59) U/L ALT 46 (6-50) U/L Alkaline Phosphatase 70 (38-126) U/L Troponin I 0.041 H* (0.000-0.034) ng/mL NT-Pro-B Natriuret Pep 670 H (19.9-100) pg/mL Total Protein 7.9 (6.3-8.2) g/dL Albumin 4.6 (3.5-5.1) g/dL Triglycerides 186 H (<150) mg/dL Imaging Data Radiologist's impression: ITS Impressions Chest X-Ray 01/23/25 17:15 Impression: 1: Cardiomegaly with pulmonary edema. Head CT 01/23/25 19:11 IMPRESSION: No acute intracranial hemorrhage or extra axial fluid collections. Bilateral mastoiditis. All CT scans at this facility are performed using low dose modulation techniques as appropriate to perform exam including the following: automated exposure control; use of iterative reconstruction technique; adjustment of the mA and/or kV according to patient size (this includes techniques or standardized protocols for targeted exams where dose is matched to indication/reason for exam). Chest/Abdomen/Pelvis CT 01/23/25 19:16 IMPRESSION: Bilateral lower lobe consolidation may represent pneumonia. No acute abdominal or pelvic findings. All CT scans at this facility are performed using low dose modulation techniques as appropriate to perform exam including the following: automated exposure control; use of iterative reconstruction technique; adjustment of the mA and/or kV according to patient size (this includes techniques or standardized protocols for targeted exams where dose is matched to indication/reason for exam).
--- NOTE | 2025-01-23 20:56 | P.HP_ITS ---
H&P: HPI History of Present Illness Date/Time: 01/23/25 20:56 Chief Complaint: This is a 79-year-old male patient who has a history of right wrist fracture. The patient had fallen and was seen in the ER at [facility] on 01/18/2025, which was a ground level. He fall had falln with an outstretched hand and also struck his head at that time. The patient did not immediately get medical attention despite taking Eliquis. However a few days later he was seen at an outside facility urgent care and was diagnosed with fractures the wrist and was placed in a splint. That night the patient was in severe discomfort and developed blisters on his dorsum of the right hand. He was noted to have a superficial infection at that time. He was started on antibiotics at that time. It was noted that this was not consistent with necrotizing soft tissue infe ction. The hand surgeon was consulted here Dr. Abraham who recommended that the patient is placed in a volar splint and ortho was going to see him later. However the patient came into the emergency room today for complaints of dizziness. It was reported that the patient was being belligerent in the ER waiting room. Then the patient was found to be unresponsive. He was taken back to emergency room bed immediately. A code was initiated and the patient was intubated in the emergency room. Please see code sheet. CPR had been initiated ,he was given a dose of epi. The patient was noted to be in find VFib. He was shocked and given amiodarone. He had almost immediate Rosc. 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 It was noted that there was no indication for cardiac catheterization per interventionalist. ABGs pH 7.460 and his PO2 was 419.9. His INR in gap is 19. BUN is 7 and creatinine is 1.11. Lactic is 11.1. Troponin 0.041 however after reviewing his chart he has a chronic troponin leak. BNP 670. Triglycerides 186. MRSA was not detected and he was negative for influenza a B RSV and COVID. The patient was started on a heparin drip and amiodarone drip as well. Cardiology was consulted. The cleaner laboratory equipment was notified and the patient was admitted into ICU. It is unknown how long the patient had been unresposive. Date of Service is 01/23/2025. Review of Systems Review of Systems: ROS unobtainable: Yes unobtainable due to endotracheal tube, unobtainable due to medical condition and unobtainable due to mental status [facility] Past Medical History Medical History (Updated 01/24/25 @ 17:47 by Kayla Rangel MD) Chronic otitis media of left ear with effusion Retraction pocket of tympanic membrane Acute otitis media of left ear with perforated tympanic membrane Chronic otitis media of right ear with effusion Chronic otitis media of both ears Rowell's palsy Diverticulitis Morbid obesity with BMI of 40.0-44.9, adult Folate deficiency anemia Level normal at 16.2 with hemoglobin 15.7 on 06/10/2024. Encounter for prostate cancer screening PSA 1.53n 06/10/24. 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 APAP at 5-16 cm of water pressure 06/04/2020 Abnormal fasting glucose (04/03/20) Fasting glucose 105, hemoglobin A1c 5.9 with microalbumin ratio of 6 with GFR 87 on 06/10/2024. BMI 37.0-37.9, adult Chronic anxiety Chronic depression Eczema Vitamin B12 deficiency anemia Level normal at 1457 with hemoglobin 15.7 on 06/10/2024. Vitamin D deficiency, unspecified Level normal at 36 on 06/10/2024. Hypogonadism male Chronic sinusitis Chronic serous otitis media of right ear Bilateral hearing loss Chronic bilateral low back pain with right-sided sciatica Surgical History Surgical History (Updated 01/23/25 @ 21:05 by Alla Porter APRN) H/O cardiac catheterization History of tonsillectomy History of radiofrequency ablation procedure for cardiac arrhythmia A flutter ablation, [facility] Status post cataract extraction of both eyes with insertion of intraocular lens History of cardiac radiofrequency ablation 5 years ago for AFib History of bowel resection 19 years old Family History Family History Mother Patient's mother is , Onset Age: 92 Acute myocardial infarction Skin cancer Father Family history of cardiovascular disease, Onset Age: 57 Acute myocardial infarction Social History Social History (Updated 01/23/25 @ 20:58 by Alla Porter APRN) Social History: He drinks 2-3 bottles of wine a night. No drug use except occasional marijuana use. Quit tobacco at age 28 after smoking 2 packs a day for 10 years. He lives alone. He is but it sounds like he still is in contact with his ex- quite frequently lives in [facility]. He has 2 step children. He has 1 son who is still living and a daughter who of alcohol and drug use. Code status: full code Surrogate decision maker for healthcare: Juan Pablo (son) Smoking packs per day: 2 Smoking cigarettes per day: 40.0 Years smoked: 11 Smoking pack-years: 22.00 Smoking status: Former smoker Tobacco type: cigarettes and cigars Alcohol intake: current Drinks per week: 70 Alcohol use details: beer or wine Varies, sometimes has a bottle of wine with his meal daily Substance use: former Substance use type: marijuana Spiritual care concerns: No Meds Home Medications and Allergies Home Medications ?Medication ?Instructions ?Recorded ?Confirmed ?Type cholecalciferol (vitamin D3) 125 5,000 unit PO DAILY 0 04/04/19 01/24/25 History mcg (5,000 unit) tablet cyanocobalamin (vitamin B-12) 1,000 mcg PO DAILY 10/2801/24/25 History 1,000 mcg tablet apixaban 5 mg tablet (Eliquis) 5 mg PO BID #60 tabs 01/24/25 Rx atorvastatin 80 mg tablet 80 mg PO QHS #90 tabs 01/24/25 Rx fexofenadine 180 mg tablet 180 mg PO DAILY chronic se asonal 05/12/24 01/24/25 Rx (Aliza Allergy) allergic rhinitis #30 tabs amiodarone 100 mg tablet 100 mg PO DAILY #90 tabs 01/24/25 Rx carvedilol 6.25 mg tablet 6.25 mg PO Q12H #180 tabs 01/24/25 Rx escitalopram oxalate 20 mg tablet 20 mg PO DAILY #90 t abs 06/21/24 01/24/25 Rx (Lexapro) irbesartan 150 mg tablet 150 mg PO DAILY #90 tabs 01/24/25 Rx Allergies Allergy/AdvReac Type Severity Reaction Status Date / Time hydrochlorothiazide Allergy Intermediate Unknown Verified 01/24/25 00:48 lisinopril Allergy Intermediate Unknown Verified 01/24/25 00:48 Vital Signs Vital Signs - 24 hr 01/23/25 15:37 01/23/25 16:05 01/23/25 16:33 Temperature 97.5 F L 97.8 F Pulse Rate 62 91 86 Respiratory Rate 18 18 13 Blood Pressure 146/75 H 137/98 H Pulse Oximetry 96 99 Oxygen Delivery Room Air Fraction of Inspired Oxygen 01/23/25 16:39 01/23/25 16:44 01/23/25 16:45 Temperature Pulse Rate 81 97 95 Respiratory Rate 22 H 7 L Blood Pressure 228/202 H 187/175 H Pulse Oximetry 70 L 71 L Oxygen Delivery Fraction of Inspired Oxygen 01/23/25 16:46 01/23/25 16:49 01/23/25 16:50 Temperature Pulse Rate 64 75 71 Respiratory Rate 12 Blood Pressure 145/98 H 140/97 H 140/97 H Pulse Oximetry 78 L 85 L 90 Oxygen Delivery Fraction of Inspired Oxygen 01/23/25 16:52 01/23/25 16:55 01/23/25 17:00 Temperature Pulse Rate 72 87 68 Respiratory Rate 0 L 0 L Blood Pressure 152/102 H 164/111 H Pulse Oximetry 87 L 82 L Oxygen Delivery Mechanical Ventilation Fraction of Inspired Oxygen 100 01/23/25 17:00 01/23/25 17:02 01/23/25 17:08 Temperature Pulse Rate 86 84 93 Respiratory Rate 10 L 18 Blood Pressure 199/135 H 200/136 H Pulse Oximetry 86 L 88 L 97 Oxygen Delivery Fraction of Inspired Oxygen 01/23/25 17:10 01/23/25 17:14 01/23/25 17:15 Temperature 98.5 F 98.5 F Pulse Rate 65 68 68 Respiratory Rate 18 18 18 Blood Pressure 188/121 H 173/112 H Pulse Oximetry 97 Oxygen Delivery Fraction of Inspired Oxygen 01/23/25 17:16 01/23/25 17:16 01/23/25 17:19 Temperature 98.6 F 98.8 F Pulse Rate 68 68 86 Respiratory Rate 18 18 19 Blood Pressure 173/114 H 183/127 H Pulse Oximetry Oxygen Delivery Fraction of Inspired Oxygen 01/23/25 17:22 01/23/25 17:25 01/23/25 17:28 Temperature 99.0 F 99.1 F 99.3 F Pulse Rate 102 H 94 93 Respiratory Rate 18 19 16 Blood Pressure 195/131 H 192/119 H 187/120 H Pulse Oximetry 94 96 96 Oxygen Delivery Fraction of Inspired Oxygen 01/23/25 17:28 01/23/25 17:30 01/23/25 17:31 Temperature 99.3 F 99.3 F 99.4 F Pulse Rate 92 92 Respiratory Rate 16 18 18 Blood Pressure 187/120 H 182/106 H Pulse Oximetry 96 96 96 Oxygen Delivery Fraction of Inspired Oxygen 01/23/25 17:34 01/23/25 17:37 01/23/25 17:41 Temperature 99.5 F 99.5 F 99.5 F Pulse Rate 90 88 92 Respiratory Rate 18 18 18 Blood Pressure 174/119 H 175/115 H 168/91 H Pulse Oximetry 97 97 96 Oxygen Delivery Fraction of Inspired Oxygen 01/23/25 17:44 01/23/25 17:45 01/23/25 17:46 Temperature 99.5 F 99.5 F 99.5 F Pulse Rate 94 91 91 Respiratory Rate 18 18 18 Blood Pressure 176/112 H 166/119 H Pulse Oximetry 96 96 96 Oxygen Delivery Fraction of Inspired Oxygen 01/23/25 17:50 01/23/25 18:41 01/23/25 18:45 Temperature 99.4 F 98.8 F 98.8 F Pulse Rate 90 87 Respiratory Rate 18 24 H Blood Pressure 173/88 H 157/99 H Pulse Oximetry 95 98 Oxygen Delivery Fraction of Inspired Oxygen 01/23/25 18:46 01/23/25 18:47 01/23/25 18:49 Temperature 98.8 F 98.8 F Pulse Rate 86 85 84 Respiratory Rate 23 H 24 H Blood Pressure 146/113 H Pulse Oximetry 98 97 98 Oxygen Delivery Mechanical Ventilation Fraction of Inspired Oxygen 100 01/23/25 18:49 01/23/25 18:53 01/23/25 18:56 Temperature 98.7 F 98.8 F Pulse Rate 87 85 85 Respiratory Rate 25 H 27 H 22 H Blood Pressure 153/115 H 147/78 H Pulse Oximetry 97 100 Oxygen Delivery Fraction of Inspired Oxygen 01/23/25 18:56 01/23/25 19:00 01/23/25 19:00 Temperature 98.8 F 98.8 F Pulse Rate 83 84 84 Respiratory Rate 24 H 20 23 H Blood Pressure 145/92 H Pulse Oximetry 99 97 Oxygen Delivery Fraction of Inspired Oxygen 01/23/25 19:08 01/23/25 19:10 01/23/25 19:13 Temperature 98.8 F 98.8 F 98.9 F Pulse Rate 79 79 79 Respiratory Rate 22 H 22 H 23 H Blood Pressure 96/72 L 101/74 113/82 Pulse Oximetry 99 98 Oxygen Delivery Fraction of Inspired Oxygen 01/23/25 19:15 01/23/25 19:16 01/23/25 19:19 Temperature 98.8 F 98.8 F 98.8 F Pulse Rate 83 79 81 Respiratory Rate 22 H 21 H 23 H Blood Pressure 130/84 117/71 Pulse Oximetry 99 99 99 Oxygen Delivery Fraction of Inspired Oxygen 01/23/25 19:22 01/23/25 19:25 01/23/25 19:45 Temperature 98.8 F 98.8 F Pulse Rate 78 76 76 Respiratory Rate 23 H 21 H 18 Blood Pressure 119/87 115/75 126/88 Pulse Oximetry 99 97 99 Oxygen Delivery Fraction of Inspired Oxygen Exam Const: General: cooperative Other: Patient is ill-appearing. He is sedated intubated. HENMT: Head: normal to inspection, No palpable skull fracture present, normocephalic, atraumatic and abrasion Eyes: Pupils: Equal, round and reactive pupils present and Pupil accommodation reflex normal Other: Lateral nystagmus and possible doll's eyes Chest: Chest palpation & inspection: normal inspection of the chest Resp: Auscultation: crackles Cardio: Rate: regular rate Rhythm: regular rhythm Heart sounds: S2 normal heart sound present Peripheral pulses: Peripheral pulses 2+ throughout GI: Inspection: normal to inspection Percussion: Yes normal to percussion Auscultation: normal bowel sounds Rectal Exam: deferred Urinary Catheter: Urinary Catheter: patent and draining Skin: Other: Right hand erythematous and edematous. He has eschar tissue noted to several areas on the right hand where his hand had blistered. Neuro: Other: The patient appears to have a gag reflex but does not respond to painful stimuli Extrem: General: normal to inspection Right upper extremity: normal to inspection and shoulder/upper arm Left upper extremity: normal to inspection and shoulder/upper arm Right lower extremity: normal to inspection Left lower extremity: normal to inspection Results Labs Labs: Short CBC 01/23/25 Range/Units 16:50 WBC 10.0 (4.5-10.0) K/mm3 Hgb 16.1 (14.0-18.0) g/dL Hct 49.3 (42.0-52.0) % Plt Count 268 (150-375) k/mm3 BMP 01/23/25 16:50 Sodium 142 Potassium 3.7 Chloride 102 Carbon Dioxide 21 L BUN 7 L Creatinine 1.11 Glucose 109 Calcium 9.9 Cardiac Enzymes 01/23/25 Range/Units 16:50 Troponin I 0.041 H* (0.000-0.034) ng/mL Liver Function 01/23/25 Range/Units 16:50 Total Bilirubin 1.7 H (0.2-1.3) mg/dL AST 55 (17-59) U/L ALT 46 (6-50) U/L Alkaline Phosphatase 70 (38-126) U/L Albumin 4.6 (3.5-5.1) g/dL ECG Interpretation: Test Date: 2025-01-23 16:35:04 Measurements Intervals [place] Rate: 84 P: 0 NM: 0 QRS: 104 QRSD: 214 T: 0 QT: 465 QTc: 550 Interpretive Statements ATRIAL FIBRILLATION RIGHT AXIS DEVIATION IVCD, FEATURES OF BOTH RBBB, LBBB BASELINE ARTIFACT- I, II, III, AVR, AVF, V1-V3 ABNORMAL ECG Compared to ECG 01/18/2025 09:57:07 SINUS BRADYCARDIA NO LONGER PRESENT Imaging CT scan - abdomen: Radiologist's impression: Impressions Chest X-Ray 01/23/25 17:15 Impression: 1: Cardiomegaly with pulmonary edema. Head CT 01/23/25 19:11 IMPRESSION: No acute intracranial hemorrhage or extra axial fluid collections. Bilateral mastoiditis. All CT scans at this facility are performed using low dose modulation techniques as appropriate to perform exam including the following: automated exposure control; use of iterative reconstruction technique; adjustment of the mA and/or kV according to patient size (this includes techniques or standardized protocols for targeted exams where dose is matched to indication/reason for exam). Chest/Abdomen/Pelvis CT 01/23/25 19:16 IMPRESSION: Bilateral lower lobe consolidation may represent pneumonia. No acute abdominal or pelvic findings. All CT scans at this facility are performed using low dose modulation techniques as appropriate to perform exam including the following: automated exposure control; use of iterative reconstruction technique; adjustment of the mA and/or kV according to patient size (this includes techniques or standardized protocols for targeted exams where dose is matched to indication/reason for exam). Critical Care Time Critical Care Time Critical Care Time: Yes Time Type: Continuous Initial evaluation, discuss w/ involved parties, attempting to gather old records: 30 minutes Documenting medical record: 15 minutes Review of results (EKG's, labs, imaging): 5 minutes Serial repeat bedside evaluation: 30 minutes Discussing case with multiple memebers of the care team and consultants: 20 minutes Total Critical Care Time: 100 Quality VTE Prophylaxis VTE prophylaxis: pharmacologic ordered Assessment and Plan Assessment and plan (1) Cardiac arrest with ventricular fibrillation: Code(s): I46.9 - Cardiac arrest, cause unspecified; I49.01 - Ventricular fibrillation Status: Acute Assessment and Plan: -the patient came into the emergency room today complaining of feeling dizzy. The patient was found to be unresponsive in the ER waiting room for unknown amount of time. The patient was immediately taken back to in ER bed. CPR was initiated at that time. The patient was given a dose of epinephrine and was found to be in fine VFib. The patient was shocked an amiodarone was started. Patient had almost immediate Rosc. -the cleaner laboratory equipment has been consulted. -cardiology has been consulted. -hypothermia protocol has been initiated. Goal temperature is 33? C. -the patient is intubated and sedated in the ICU. -his son is in [facility] and was updated on his condition. The son reported that the patient has a history of alcohol and tobacco abuse. The patient still had some contact with his ex- and she has been updated. -the patient was started on Nimbex drip, fentanyl drip, and propofol. Continue to monitor daily lipids. -his blood pressure is currently 106/76. If map falls less than 60 may consider vasopressors. -a heparin were drip was initiated -troponin was elevated to 0.041 however the patient has a chronic troponin leak.monitor trops -cardiology had been consulted. It was noted that no intervention was necessary this time. -may consider EEG once the patient is off of the hypothermia protocol. -NG tube -monitor by vital signs as per ICU protocol. (2) Sepsis: Code(s): A41.9 - Sepsis, unspecified organism Status: Acute Assessment and Plan: -CT scan showsChest/Abdomen/Pelvis CT 01/23/25 19:16 IMPRESSION: Bilateral lower lobe consolidation may represent pneumonia. No acute abdominal or pelvic findings. -infectious disease consulted -patient's heart rate was initially 102. His blood pressure is now 106/76. White count is 20.8. -lactic acid initially was 11.1. It is now 4.1. Continue to monitor daily. -the patient was given a dose of Rocephin in the emergency room. -patient was started on Zosyn and vancomycin. -blood and sputum cultures pending. (3) Essential hypertension: Code(s): I10 - Essential (primary) hypertension Status: Acute Assessment and Plan: -patient's blood pressure soft and he is currently on an amiodarone drip. (4) Alcohol abuse: Code(s): F10.10 - Alcohol abuse, uncomplicated Status: Acute Assessment and Plan: -the patient is on a paralytic and sedated at this time. (5) Coronary artery disease involving [place] coronary artery of [place] heart without angina pectoris: Code(s): I25.10 - Atherosclerotic heart disease of [place] coronary artery without angina pectoris Status: Acute Assessment and Plan: -cardiology has been consulted. -the patient is on heparin drip. (6) History of radiofrequency ablation procedure for cardiac arrhythmia: Code(s): Z98.890 - Other specified postprocedural states Status: Acute Assessment and Plan: -the patient had been on apixaban previously. He had been on Coreg as well. He had been on p.o. amiodarone. Now he is on a amiodarone drip.
--- NOTE | 2025-01-23 20:59 | PM.IMHP2 ---
H&P: HPI History of Present Illness Date/Time: 01/23/25 20:59 [facility] Past Medical History Medical History Morbid obesity with BMI of 40.0-44.9, adult Folate deficiency anemia Level normal at 16.2 with hemoglobin 15.7 on 06/10/2024. Encounter for prostate cancer screening PSA 1.53n 06/10/24. 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 APAP at 5-16 cm of water pressure 06/04/2020 Abnormal fasting glucose (04/03/20) Fasting glucose 105, hemoglobin A1c 5.9 with microalbumin ratio of 6 with GFR 87 on 06/10/2024. BMI 37.0-37.9, adult Chronic anxiety Chronic depression Eczema Vitamin B12 deficiency anemia Level normal at 1457 with hemoglobin 15.7 on 06/10/2024. Vitamin D deficiency, unspecified Level normal at 36 on 06/10/2024. Hypogonadism male Chronic sinusitis Chronic serous otitis media of right ear Bilateral hearing loss Chronic bilateral low back pain with right-sided sciatica Surgical History Surgical History History of radiofrequency ablation procedure for cardiac arrhythmia A flutter ablation, [facility] Status post cataract extraction of both eyes with insertion of intraocular lens History of cardiac radiofrequency ablation 5 years ago for AFib History of bowel resection 19 years old Family History Family History Mother Patient's mother is , Onset Age: 92 Acute myocardial infarction Skin cancer Father Family history of cardiovascular disease, Onset Age: 57 Acute myocardial infarction Social History Social History (Updated 01/23/25 @ 20:58 by Alla Porter APRN) Social History: He drinks 2-3 bottles of wine a night. No drug use except occasional marijuana use. Quit tobacco at age 28 after smoking 2 packs a day for 10 years. He lives alone. He is but it sounds like he still is in contact with his ex- quite frequently lives in [facility]. He has 2 step children. He has 1 son who is still living and a daughter who of alcohol and drug use. Code status: full code Surrogate decision maker for healthcare: Juan Pablo (son) Smoking packs per day: 2 Smoking cigarettes per day: 40.0 Years smoked: 11 Smoking pack-years: 22.00 Smoking status: Former smoker Tobacco type: cigarettes and cigars Alcohol intake: current Drinks per week: 70 Alcohol use details: beer or wine Varies, sometimes has a bottle of wine with his meal daily Substance use: former Substance use type: marijuana Spiritual care concerns: No Meds Home Medications and Allergies Home Medications ?Medication ?Instructions ?Recorded ?Confirmed ?Type cholecalciferol (vitamin D3) 125 5,000 unit PO DAILY 04/04/19 09/19/24 History mcg (5,000 unit) tablet cyanocobalamin (vitamin B-12) 1,000 mcg PO DAILY 10/29/23 09/19/24 History 1,000 mcg tablet apixaban 5 mg tablet (Eliquis) 5 mg PO BID #60 tabs 02/19/24 09/19/24 Rx atorvastatin 80 mg tablet 80 mg PO QHS #90 tabs 04/27/24 09/19/24 Rx fexofenadine 180 mg tablet 180 mg PO DAILY chronic seasonal 05/12/24 09/19/24 Rx (Aliza Allergy) allergic rhinitis #30 tabs amiodarone 100 mg tablet 100 mg PO DAILY #90 tabs 06/09/24 09/19/24 Rx carvedilol 6.25 mg tablet 6.25 mg PO Q12H #180 tabs 06/21/24 09/19/24 Rx escitalopram oxalate 20 mg tablet 20 mg PO DAILY #90 tabs 06/21/24 09/19/24 Rx (Lexapro) irbesartan 150 mg tablet 150 mg PO DAILY #90 tabs 06/21/24 09/19/24 Rx [id number] 3.5 4 drp otic (ear) Q8H chronic 09/19/24 09/19/24 Rx mg-10,000 unit/mL-1 % ear otitis media #10 mL drops,susp Allergies Allergy/AdvReac Type Severity Reaction Status Date / Time hydrochlorothiazide Allergy Intermediate Unknown Verified 01/23/25 15:44 lisinopril Allergy Intermediate Unknown Verified 01/23/25 15:44 Vital Signs Vital Signs - 24 hr 01/23/25 15:37 01/23/25 16:05 01/23/25 16:33 Temperature 97.5 F L 97.8 F Pulse Rate 62 91 86 Respiratory Rate 18 18 13 Blood Pressure 146/75 H 137/98 H Pulse Oximetry 96 99 Oxygen Delivery Room Air Fraction of Inspired Oxygen 01/23/25 16:39 01/23/25 16:44 01/23/25 16:45 Temperature Pulse Rate 81 97 95 Respiratory Rate 22 H 7 L Blood Pressure 228/202 H 187/175 H Pulse Oximetry 70 L 71 L Oxygen Delivery Fraction of Inspired Oxygen 01/23/25 16:46 01/23/25 16:49 01/23/25 16:50 Temperature Pulse Rate 64 75 71 Respiratory Rate 12 Blood Pressure 145/98 H 140/97 H 140/97 H Pulse Oximetry 78 L 85 L 90 Oxygen Delivery Fraction of Inspired Oxygen 01/23/25 16:52 01/23/25 16:55 01/23/25 17:00 Temperature Pulse Rate 72 87 68 Respiratory Rate 0 L 0 L Blood Pressure 152/102 H 164/111 H Pulse Oximetry 87 L 82 L Oxygen Delivery Mechanical Ventilation Fraction of Inspired Oxygen 100 01/23/25 17:00 01/23/25 17:02 01/23/25 17:08 Temperature Pulse Rate 86 84 93 Respiratory Rate 10 L 18 Blood Pressure 199/135 H 200/136 H Pulse Oximetry 86 L 88 L 97 Oxygen Delivery Fraction of Inspired Oxygen 01/23/25 17:10 01/23/25 17:14 01/23/25 17:15 Temperature 98.5 F 98.5 F Pulse Rate 65 68 68 Respiratory Rate 18 18 18 Blood Pressure 188/121 H 173/112 H Pulse Oximetry 97 Oxygen Delivery Fraction of Inspired Oxygen 01/23/25 17:16 01/23/25 17:16 01/23/25 17:19 Temperature 98.6 F 98.8 F Pulse Rate 68 68 86 Respiratory Rate 18 18 19 Blood Pressure 173/114 H 183/127 H Pulse Oximetry Oxygen Delivery Fraction of Inspired Oxygen 01/23/25 17:22 01/23/25 17:25 01/23/25 17:28 Temperature 99.0 F 99.1 F 99.3 F Pulse Rate 102 H 94 93 Respiratory Rate 18 19 16 Blood Pressure 195/131 H 192/119 H 187/120 H Pulse Oximetry 94 96 96 Oxygen Delivery Fraction of Inspired Oxygen 01/23/25 17:28 01/23/25 17:30 01/23/25 17:31 Temperature 99.3 F 99.3 F 99.4 F Pulse Rate 92 92 Respiratory Rate 16 18 18 Blood Pressure 187/120 H 182/106 H Pulse Oximetry 96 96 96 Oxygen Delivery Fraction of Inspired Oxygen 01/23/25 17:34 01/23/25 17:37 01/23/25 17:41 Temperature 99.5 F 99.5 F 99.5 F Pulse Rate 90 88 92 Respiratory Rate 18 18 18 Blood Pressure 174/119 H 175/115 H 168/91 H Pulse Oximetry 97 97 96 Oxygen Delivery Fraction of Inspired Oxygen 01/23/25 17:44 01/23/25 17:45 01/23/25 17:46 Temperature 99.5 F 99.5 F 99.5 F Pulse Rate 94 91 91 Respiratory Rate 18 18 18 Blood Pressure 176/112 H 166/119 H Pulse Oximetry 96 96 96 Oxygen Delivery Fraction of Inspired Oxygen 01/23/25 17:50 01/23/25 18:41 01/23/25 18:45 Temperature 99.4 F 98.8 F 98.8 F Pulse Rate 90 87 Respiratory Rate 18 24 H Blood Pressure 173/88 H 157/99 H Pulse Oximetry 95 98 Oxygen Delivery Fraction of Inspired Oxygen 01/23/25 18:46 01/23/25 18:47 01/23/25 18:49 Temperature 98.8 F 98.8 F Pulse Rate 86 85 84 Respiratory Rate 23 H 24 H Blood Pressure 146/113 H Pulse Oximetry 98 97 98 Oxygen Delivery Mechanical Ventilation Fraction of Inspired Oxygen 100 01/23/25 18:49 01/23/25 18:53 01/23/25 18:56 Temperature 98.7 F 98.8 F Pulse Rate 87 85 85 Respiratory Rate 25 H 27 H 22 H Blood Pressure 153/115 H 147/78 H Pulse Oximetry 97 100 Oxygen Delivery Fraction of Inspired Oxygen 01/23/25 18:56 01/23/25 19:00 01/23/25 19:00 Temperature 98.8 F 98.8 F Pulse Rate 83 84 84 Respiratory Rate 24 H 20 23 H Blood Pressure 145/92 H Pulse Oximetry 99 97 Oxygen Delivery Fraction of Inspired Oxygen 01/23/25 19:08 01/23/25 19:10 01/23/25 19:13 Temperature 98.8 F 98.8 F 98.9 F Pulse Rate 79 79 79 Respiratory Rate 22 H 22 H 23 H Blood Pressure 96/72 L 101/74 113/82 Pulse Oximetry 99 98 Oxygen Delivery Fraction of Inspired Oxygen 01/23/25 19:15 01/23/25 19:16 01/23/25 19:19 Temperature 98.8 F 98.8 F 98.8 F Pulse Rate 83 79 81 Respiratory Rate 22 H 21 H 23 H Blood Pressure 130/84 117/71 Pulse Oximetry 99 99 99 Oxygen Delivery Fraction of Inspired Oxygen 01/23/25 19:22 01/23/25 19:25 01/23/25 19:45 Temperature 98.8 F 98.8 F Pulse Rate 78 76 76 Respiratory Rate 23 H 21 H 18 Blood Pressure 119/87 115/75 126/88 Pulse Oximetry 99 97 99 Oxygen Delivery Fraction of Inspired Oxygen Results Labs Labs: Short CBC 01/23/25 Range/Units 16:50 WBC 10.0 (4.5-10.0) K/mm3 Hgb 16.1 (14.0-18.0) g/dL Hct 49.3 (42.0-52.0) % Plt Count 268 (150-375) k/mm3 BMP 01/23/25 16:50 Sodium 142 Potassium 3.7 Chloride 102 Carbon Dioxide 21 L BUN 7 L Creatinine 1.11 Glucose 109 Calcium 9.9 Cardiac Enzymes 01/23/25 Range/Units 16:50 Troponin I 0.041 H* (0.000-0.034) ng/mL Liver Function 01/23/25 Range/Units 16:50 Total Bilirubin 1.7 H (0.2-1.3) mg/dL AST 55 (17-59) U/L ALT 46 (6-50) U/L Alkaline Phosphatase 70 (38-126) U/L Albumin 4.6 (3.5-5.1) g/dL
[2025-01-23 21:28] LABS: Alveolar/Arterial O2 Gradient 264.0 mmHg; Fractional Inspired Oxygen 100 %; HCO3 ABG 20.2 mEq/l (22.0-26.0); Oxygen Content ABG 25.8 %vol (16.0-22.0); Oxygen Saturation ABG 99.9 % (95.0-100.0); PCO2 ABG 29.1 mmHg (35.0-45.0); PO2 ABG 419.9 mmHg (80.0-100.0); PO2 FiO2 Ratio Arterial Blood 4.20 %
[2025-01-23 21:43] LABS: Influenza A QL RT-PCR Negative (Negative); Influenza B QL RT-PCR Negative (Negative); RSV RNA, RT-PCR Negative (Negative); SARS-CoV-2 RNA PCR Negative (Negative)
[2025-01-23 22:17] LABS: MRSA (PCR) NOT DETECTED (NOT DETECTE)
--- NOTE | 2025-01-23 22:17 | ADMGEN ---
This patient, Naif Hale, was admitted to Intensive Care Unit-2 at 2024. Patient/family oriented to hospital policies and general routines including ID bracelet, bed and alarms, visiting hours, pain management, procedures, bathroom and other care routines, personal items, smoking policy, room service/diet, and visiting hours. Information on how to activate the Rapid Response Team has been discussed. Patient/Family are encouraged to report perceived risks to care and to ask questions if they do not understand what they are told or what they should do.
--- NOTE | 2025-01-23 22:49 | WPDPROCEDUR ---
Procedures Central Line Placement Right Femoral: Central Line Date: 01/23/25 Central Line Time: 22:30 Performed Emergently - Given emergent patient condition, temporal constraints may have precluded informed consent.: Yes Consent: emergent procedure, unable to to reach poa at this time as his son is in [facility] Time Out Performed: Yes Patient Position: supine Patient placed on monitor/pulse ox: Yes Provider Prep: mask and Max. sterile barrier precautions Central line prep: 2% Chlorhexidine scrub and sterile full body sheet applied Local anesthesia used: lidocaine 2% Amount of anesthesia used (ml): 3 Sterile US Technique with sterile gel/sterile probe covers: Yes Central line lumen inserted: triple Romanian: 7 Length (cm): 16 Depth of Insertion (cm): 14 Post Procedure: sutured in place, good blood return, all ports aspirated, flushed, capped and transparent dressing Patient tolerated procedure: well Complications: none Additional comments: I attempted to place a line in the left femoral vein and was not able to advanced the guidewire. I then obtained a new kit and moved to the femoral area . I had no difficulties inserting the central line in the right femoral vein.
[2025-01-23 22:59] LABS: Hematocrit 48.5 % (42.0-52.0); Hemoglobin 16.4 g/dL (14.0-18.0); Immature Granulocyte Percent A 0.9 % (0-0.5); Lymphocytes Absolute Auto 3.28 K/mm3 (0.9-3.2); Mean Corpuscular HGB Conc 33.8 g/dl (32-36); Mean Corpuscular Hemoglobin 33.5 pg (26-34); Mean Corpuscular Volume 99.0 fl (80-100); Nucleated Red Blood Cells Absolute Auto 0.000 K/mm3 (0.0-0.012); Nucleated Red Blood Cells Perc 0.0 % (0.0-0.2); Platelet Count Result 299 k/mm3 (150-375); Red Blood Count 4.90 M/mm3 (4.6-6.20); White Blood Count 20.8 K/mm3 (4.5-10.0)
[2025-01-23] MEDS: HEPARIN SOD/D5W 100 UNITS/ML 25,000 UNITS/250 ML BAG 10 UNITS IV CONT (23:00)
[2025-01-23 23:11] LABS: Triglycerides 232 mg/dL (<150)
[2025-01-23 23:20] LABS: INR 1.2; Prothrombin Time 15.5 Seconds (11.1-14.7)
[2025-01-23 23:21] LABS: Partial Thromboplastin Time 26.9 Seconds (22.3-36.8)
[2025-01-23] MEDS: DOXYCYCLINE IV 100 MG in SODIUM CHLORIDE 0.9% IV 100 ML IVPB (23:37)
--- NOTE | 2025-01-23 23:44 | WPDPROCEDUR ---
Procedures Intubation Intubation Date: 01/23/25 Intubation Time: 23:20 Consent: emergent procedure. unable to reach poa which is his son who is in [facility] ET tube size: 7.5 Tube secured depth (cm): 25 Tube secured location: lips Patient tolerated procedure: well Additional comments: I used a bougie as his ET tube has a leak in his cuff from the patient chewing on it . I was able to transpose the ET tube without any difficulty. The patient is already on Nimbex and propofol. The old ET tube had a cuff leak as the patient had biten through the cuff. I was able to exchange the ET tube without difficulty. CO2 detector changed colors and condensation was noted in the ET tube. This was an et tube exchange using a boogie only .
[2025-01-23 23:46] LABS: Arterial Blood Gas Tidal Volume 420 ml; Arterial Blood Gas Ventilator rate 18 /MIN; Modified Allen's Test Pass; Site Drawn LEFT RADIAL
[2025-01-23] MEDS: CISATRACURIUM BESYLATE 200 MG in SODIUM CHLORIDE 0.9% IV 80 ML 13.46 ML IV CONT (23:46)
[2025-01-24] VITALS (51 sets, daily range): BP systolic 94–202; BP diastolic 69–116; PULSE 29–78; RESP 18–22; TEMP 32.1–38.2; O2SAT 88–100; BMI 39.2
[2025-01-24] MEDS: PROPOFOL IV EMULSION 100 ML 17.95 MG IV CONT (00:03)
[2025-01-24] MEDS: PIPERACILLIN/TAZOBACTAM SOD 3.375 GM in SODIUM CHLORIDE 0.9% IV 50 ML 100 ML IVPB ×5 (00:18→21:22)
[2025-01-24] MEDS: cefTRIAXone 1 GM in SODIUM CHLORIDE 0.9% IV 50 ML 100 ML IVPB (00:34)
[2025-01-24] MEDS: VANCOMYCIN 1,250 MG/NS 250 ML 1,250 MG/250 ML BAG 166.67 MG IVPB ×2 (00:38→02:14)
--- NOTE | 2025-01-24 01:20 | PC.NURSE ---
0017- Spoke with son, Fabiano. Gave update to son. Got permission to give updates to Diane, ex-.
[2025-01-24 02:11] LABS: Troponin I 8.530 ng/mL (0.000-0.034)
[2025-01-24 05:38] LABS: Alveolar/Arterial O2 Gradient 180.4 mmHg; Fractional Inspired Oxygen 40 %; HCO3 ABG 21.0 mEq/l (22.0-26.0); Oxygen Content ABG 21.2 %vol (16.0-22.0); Oxygen Saturation ABG 94.6 % (95.0-100.0); PCO2 ABG 31.3 mmHg (35.0-45.0); PO2 ABG 68.8 mmHg (80.0-100.0); PO2 FiO2 Ratio Arterial Blood 1.72 %
[2025-01-24 05:39] LABS: Arterial Blood Gas Tidal Volume 420 ml; Arterial Blood Gas Ventilator rate 18 /MIN; Modified Allen's Test Unable to perform; Site Drawn RIGHT RADIAL
[2025-01-24 05:50] LABS: Hematocrit 46.1 % (42.0-52.0); Hemoglobin 15.4 g/dL (14.0-18.0); Immature Granulocyte Percent A 0.5 % (0-0.5); Lymphocytes Absolute Auto 2.68 K/mm3 (0.9-3.2); Mean Corpuscular HGB Conc 33.4 g/dl (32-36); Mean Corpuscular Hemoglobin 33.7 pg (26-34); Mean Corpuscular Volume 100.9 fl (80-100); Nucleated Red Blood Cells Absolute Auto 0.000 K/mm3 (0.0-0.012); Nucleated Red Blood Cells Perc 0.0 % (0.0-0.2); Platelet Count Result 243 k/mm3 (150-375); Red Blood Count 4.57 M/mm3 (4.6-6.20); White Blood Count 14.6 K/mm3 (4.5-10.0)
[2025-01-24] MEDS: CENTRAL LINE FLUSH 10 ML IV PUSH ×3 (05:56→21:35)
[2025-01-24 06:02] LABS: Estimated CRCL calculation 63 ml/min; Estimated Glomerular Filt Rate 54; Magnesium 1.6 mg/dL (1.6-2.3)
[2025-01-24 06:12] LABS: Partial Thromboplastin Time 79.5 Seconds (22.3-36.8)
[2025-01-24] MEDS: CISATRACURIUM BESYLATE 200 MG in SODIUM CHLORIDE 0.9% IV 80 ML 11.22 ML IV CONT (06:38)
[2025-01-24 07:27] LABS: Alanine Aminotransferase 69 U/L (6-50); Albumin Level 3.7 g/dL (3.5-5.1); Alkaline Phosphatase 70 U/L (38-126); Anion Gap 8 mmol/L (4-12); Aspartate Amino Transferase 97 U/L (17-59); Bilirubin,Total 0.8 mg/dL (0.2-1.3); Blood Urea Nitrogen 14 mg/dL (9-20); Calcium 8.3 mg/dL (8.4-10.2); Carbon Dioxide 27 mmol/L (22-30); Chloride 101 mmol/L (98-107); Glucose 164 mg/dL (65-110); Potassium 3.5 mmol/L (3.4-5.0); Sodium 136 mmol/L (137-145); Total Protein 6.7 g/dL (6.3-8.2)
[2025-01-24] MEDS: IPRATROPIUM 0.5 MG/ALBUTEROL SULFATE 2.5 MG (BASE) AMPUL.NEB 3 ML INHALATION ×3 (07:40→19:19)
[2025-01-24] MEDS: PROPOFOL IV EMULSION 100 ML 8.98 MG IV CONT (08:08)
[2025-01-24] MEDS: MINERAL OIL/WHITE PETROLATUM OINTMENT 1 APPLIC EACH EYE ×2 (08:14→21:22)
[2025-01-24] MEDS: PANTOPRAZOLE SODIUM IV 40 MG VIAL IV PUSH (08:14)
[2025-01-24] MEDS: LACTATED RINGERS 1,000 ML 999 ML IV CONT (08:15)
[2025-01-24 08:31] LABS: Troponin I 3.310 ng/mL (0.000-0.034)
[2025-01-24 08:39] LABS: Acetaminophen < 10 ug/mL (10-30); Salicylate < 1.0 mg/dL (2-20)
[2025-01-24 08:45] LABS: Add Urine Microscopic? YES; Appearance Urine Turbid (Clear); Glucose Urine UA Negative (Negative); Leukocyte Esterase Ur 1+ LEU/UL (Negative); Need Manual Microscopic Reviewed; Nitrate Urine Negative (Negative); Specific Grav Ur 1.028 (1.001-1.035)
[2025-01-24 09:20] LABS: Cannabinoid Screen Urine Positive (Negative)
--- NOTE | 2025-01-24 09:41 | WPDCNINT2 ---
Assessment and Plan Assessment and plan (1) Acute respiratory failure: Code(s): J96.00 - Acute respiratory failure, unspecified whether with hypoxia or hypercapnia Status: Acute Assessment and Plan: Acute respiratory failure likely related to cardiac arrest. Also pulmonary edema, pneumonia as seen on CT chest -intubated on 01/23/2025 -currently on CMV mode of ventilation, peep of 5, 40% FiO2 -chest x-ray and ABGs reviewed -continue bronchodilator -sedated with fentanyl, propofol (2) Cardiac arrest with ventricular fibrillation: Code(s): I46.9 - Cardiac arrest, cause unspecified; I49.01 - Ventricular fibrillation Status: Acute Assessment and Plan: 01/23: Patient presented the ED with dizziness and nausea. While he was in the ER waiting room, went unresponsive, was in VFib arrest -status post VFib cardiac arrest, requiring defibrillation x1, epinephrine x1 and CPR before ROSC. -patient on target temperature management -cardiology following the patient, started patient on Coreg -patient also on amiodarone infusion -will require ischemic workup once he is off target temperature management -will obtain echo once he is rewarmed -elevated troponins, continue heparin infusion -started on aspirin 81 mg (3) Mixed hyperlipidemia: Code(s): E78.2 - Mixed hyperlipidemia Status: Acute Assessment and Plan: Will start atorvastatin (4) Chronic atrial fibrillation: Code(s): I48.20 - Chronic atrial fibrillation, unspecified Status: Acute Assessment and Plan: Currently in ventricular bigeminy, will hold amiodarone infusion -hold Coreg -continue heparin infusion Plan DVT prophylaxis: Heparin infusion Stress ulcer prophylaxis: Protonix Nutrition: NPO Code Status: Full code Critical Care Time Spent: 53 minute Discussed with cardiology Will update family when available Due to a high probability of clinically significant, life threatening deterioration, the patient required my highest level of preparedness to intervene emergently and I personally spent this critical care time directly and personally managing the patient. This critical care time included obtaining a history; examining the patient; pulse oximetry; ordering and review of studies; arranging urgent treatment with development of a management plan; evaluation of patient's response to treatment; frequent reassessment; and discussions with other providers. It was exclusive of separately billable procedures and treating other patients and teaching time. Please see Assessment and Plan section and the rest of the note for further information on patient assessment and treatment This dictation may have been done utilizing a voice recognition system. Attempts have been made to correct errors. However, there may be uncorrected grammatical, spelling, and recognitions errors present. [employer] Consult Note Consult date: 01/24/25 Reason for consult: Cardiac arrest, ventricular fibrillation, respiratory failure post cardiac arrest, presented with dizziness along with nausea to the ER on 01/23/2025 HPI: Naif Hale is a 79 year old male S with past medical history of essential hypertension, anemia, systolic heart failure with EF of 45-50% on echo done in July 2020, history of alcoholism, history of Rowell's palsy, atrial fibrillation status post ablation, obstructive sleep apnea, anxiety, depression, vitamin B12 deficiency vitamin-D deficiency hypogonadism, bilateral hearing loss, chronic low back pain presented the ED on 01/23/2025 with complaints of dizziness and nausea. While in the waiting room in the ER, patient became unresponsive, CPR was initiated with 1 dose of epinephrine, patient appeared to be in ventricular fibrillation, was defibrillated x1 with ROSC. Amiodarone infusion was started. Initial EKG concerning for STEMI, intervention loss prevention consultant evaluate the patient and repeat EKG showed no ischemia. There was no indication for to take patient to the quality lab assoc per bakery associate. Was at the ER at [facility] on 01/18/2025 for evaluation for a full that occurred on 01/16/2025 on an outstretched hand and also struck his head at that time. Had he was diagnosed with to broken bones in his wrist, and was put in a splint. He developed severe pain in his right arm and had blisters on the dorsum of his hand which brought him to the ER. Dr. Abraham, hand surgeon was consulted and patient was sent home after x-ray of his right upper extremity showed fractures of proximal 4th and 5th metacarpal, no fracture or dislocation of right wrist, severe degenerative changes basal joint of thumb. No evidence of necrotizing fasciitis. On 01/23/2025 patient presented to the ED after feeling nauseous and dizzy, had a VFib arrest in the waiting room, CPR was started along with defibrillation x1, 1 dose of epi with ROSC. Patient was started on amiodarone infusion because interventional Cardiology. Pertinent labs showed a WBC count of 20.8, hemoglobin 16.4, platelets 299. INR of 1.2. Sodium 142, potassium 3.7, CO2 21, BUN 7, creatinine 1.11, blood sugars 109, total bilirubin 1.7, LFTs were normal, troponin 0.041, 8.530, 3.310. Lactic acid of 11.1, repeat lactic 4.1 and 1.7. UA not reflective of UTI. MRSA not dictate. Urine tox screen was positive for opiates and cannabinoid. RSV, COVID and influenza were negative CT brain: Showed no acute intracranial hemorrhage, bilateral mastoiditis CT scan of the chest abdomen and pelvis: Bilateral lower lobe consolidation represent pneumonia, no acute abdominopelvic findings Blood cultures, sputum cultures are, patient started on doxycycline, Zosyn, vancomycin and transfer the ICU for further management Patient seen and examined this morning in the ICU, is intubated on CMV mode of ventilation, peep of 5, 40% FiO2. Sedated with fentanyl, propofol. Patient also on Nimbex infusion. Upon arrival to the ICU overnight and after stopping sedation patient did not have any purposeful movements, target temperature management was started. Patient has not received any IV fluids in the ER, I have asked the bedside RN to give a bolus of LR at this time, will start him on maintenance IV fluids. Review of Systems Review of Systems: ROS unobtainable: Yes unobtainable due to endotracheal tube, unobtainable due to medical condition and unobtainable due to mental status PMFSH Past Medical History Medical History (Updated 01/24/25 @ 11:11 by Amy Goodson MD) Chronic otitis media of left ear with effusion Retraction pocket of tympanic membrane Acute otitis media of left ear with perforated tympanic membrane Chronic otitis media of right ear with effusion Chronic otitis media of both ears Rowell's palsy Diverticulitis Morbid obesity with BMI of 40.0-44.9, adult Folate deficiency anemia Level normal at 16.2 with hemoglobin 15.7 on 06/10/2024. Encounter for prostate cancer screening PSA 1.53n 06/10/24. 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 APAP at 5-16 cm of water pressure 06/04/2020 Abnormal fasting glucose (04/03/20) Fasting glucose 105, hemoglobin A1c 5.9 with microalbumin ratio of 6 with GFR 87 on 06/10/2024. BMI 37.0-37.9, adult Chronic anxiety Chronic depression Eczema Vitamin B12 deficiency anemia Level normal at 1457 with hemoglobin 15.7 on 06/10/2024. Vitamin D deficiency, unspecified Level normal at 36 on 06/10/2024. Hypogonadism male Chronic sinusitis Chronic serous otitis media of right ear Bilateral hearing loss Chronic bilateral low back pain with right-sided sciatica Surgical History Surgical History (Updated 01/23/25 @ 21:05 by Alla Porter APRN) H/O cardiac catheterization History of tonsillectomy History of radiofrequency ablation procedure for cardiac arrhythmia A flutter ablation, [facility] Status post cataract extraction of both eyes with insertion of intraocular lens History of cardiac radiofrequency ablation 5 years ago for AFib History of bowel resection 19 years old Family History Family History Mother Patient's mother is , Onset Age: 92 Acute myocardial infarction Skin cancer Father Family history of cardiovascular disease, Onset Age: 57 Acute myocardial infarction Social History Social History (Updated 01/23/25 @ 20:58 by Alla Porter APRN) Social History: He drinks 2-3 bottles of wine a night. No drug use except occasional marijuana use. Quit tobacco at age 28 after smoking 2 packs a day for 10 years. He lives alone. He is but it sounds like he still is in contact with his ex- quite frequently lives in [facility]. He has 2 step children. He has 1 son who is still living and a daughter who of alcohol and drug use. Code status: full code Surrogate decision maker for healthcare: Juan Pablo (son) Smoking packs per day: 2 Smoking cigarettes per day: 40.0 Years smoked: 11 Smoking pack-years: 22.00 Smoking status: Former smoker Tobacco type: cigarettes and cigars Alcohol intake: current Drinks per week: 70 Alcohol use details: beer or wine Varies, sometimes has a bottle of wine with his meal daily Substance use: former Substance use type: marijuana Spiritual care concerns: No Meds Home Medications and Allergies Home Medications ?Medication ?Instructions ?Recorded ?Confirmed ?Type cholecalciferol (vitamin D3) 125 5,000 unit PO DAILY 04/04/19 01/24/25 History mcg (5,000 unit) tablet cyanocobalamin (vitamin B-12) 1,000 mcg PO DAILY 10/29/23 01/24/25 History 1,000 mcg tablet apixaban 5 mg tablet (Eliquis) 5 mg PO BID #60 tabs 02/19/24 01/24/25 Rx atorvastatin 80 mg tablet 80 mg PO QHS #90 tabs 04/27/24 01/24/25 Rx fexofenadine 180 mg tablet 180 mg PO DAILY chronic seasonal 05/12/24 01/24/25 Rx (Aliza Allergy) allergic rhinitis #30 tabs amiodarone 100 mg tablet 100 mg PO DAILY #90 tabs 06/09/24 01/24/25 Rx carvedilol 6.25 mg tablet 6.25 mg PO Q12H #180 tabs 06/21/24 01/24/25 Rx escitalopram oxalate 20 mg tablet 20 mg PO DAILY #90 tabs 06/21/24 01/24/25 Rx (Lexapro) irbesartan 150 mg tablet 150 mg PO DAILY #90 tabs 06/21/24 01/24/25 Rx Allergies Allergy/AdvReac Type Severity Reaction Status Date / Time hydrochlorothiazide Allergy Intermediate Unknown Verified 01/24/25 00:48 lisinopril Allergy Intermediate Unknown Verified 01/24/25 00:48 Vital Signs Vital Signs - 24 hr 01/23/25 15:37 01/23/25 16:05 01/23/25 16:33 Temperature 97.5 F L 97.8 F Pulse Rate 62 91 86 Respiratory Rate 18 18 13 Blood Pressure 146/75 H 137/98 H Pulse Oximetry 96 99 Oxygen Delivery Room Air Fraction of Inspired Oxygen 01/23/25 16:39 01/23/25 16:44 01/23/25 16:45 Temperature Pulse Rate 81 97 95 Respiratory Rate 22 H 7 L Blood Pressure 228/202 H 187/175 H Pulse Oximetry 70 L 71 L Oxygen Delivery Fraction of Inspired Oxygen 01/23/25 16:46 01/23/25 16:49 01/23/25 16:50 Temperature Pulse Rate 64 75 71 Respiratory Rate 12 Blood Pressure 145/98 H 140/97 H 140/97 H Pulse Oximetry 78 L 85 L 90 Oxygen Delivery Fraction of Inspired Oxygen 01/23/25 16:52 01/23/25 16:55 01/23/25 17:00 Temperature Pulse Rate 72 87 68 Respiratory Rate 0 L 0 L Blood Pressure 152/102 H 164/111 H Pulse Oximetry 87 L 82 L Oxygen Delivery Mechanical Ventilation Fraction of Inspired Oxygen 100 01/23/25 17:00 01/23/25 17:02 01/23/25 17:08 Temperature Pulse Rate 86 84 93 Respiratory Rate 10 L 18 Blood Pressure 199/135 H 200/136 H Pulse Oximetry 86 L 88 L 97 Oxygen Delivery Fraction of Inspired Oxygen 01/23/25 17:10 01/23/25 17:14 01/23/25 17:15 Temperature 98.5 F 98.5 F Pulse Rate 65 68 68 Respiratory Rate 18 18 18 Blood Pressure 188/121 H 173/112 H Pulse Oximetry 97 Oxygen Delivery Fraction of Inspired Oxygen 01/23/25 17:16 01/23/25 17:16 01/23/25 17:19 Temperature 98.6 F 98.8 F Pulse Rate 68 68 86 Respiratory Rate 18 18 19 Blood Pressure 173/114 H 183/127 H Pulse Oximetry Oxygen Delivery Fraction of Inspired Oxygen 01/23/25 17:22 01/23/25 17:25 01/23/25 17:28 Temperature 99.0 F 99.1 F 99.3 F Pulse Rate 102 H 94 93 Respiratory Rate 18 19 16 Blood Pressure 195/131 H 192/119 H 187/120 H Pulse Oximetry 94 96 96 Oxygen Delivery Fraction of Inspired Oxygen 01/23/25 17:28 01/23/25 17:30 01/23/25 17:31 Temperature 99.3 F 99.3 F 99.4 F Pulse Rate 92 92 Respiratory Rate 16 18 18 Blood Pressure 187/120 H 182/106 H Pulse Oximetry 96 96 96 Oxygen Delivery Fraction of Inspired Oxygen 01/23/25 17:34 01/23/25 17:37 01/23/25 17:41 Temperature 99.5 F 99.5 F 99.5 F Pulse Rate 90 88 92 Respiratory Rate 18 18 18 Blood Pressure 174/119 H 175/115 H 168/91 H Pulse Oximetry 97 97 96 Oxygen Delivery Fraction of Inspired Oxygen 01/23/25 17:44 01/23/25 17:45 01/23/25 17:46 Temperature 99.5 F 99.5 F 99.5 F Pulse Rate 94 91 91 Respiratory Rate 18 18 18 Blood Pressure 176/112 H 166/119 H Pulse Oximetry 96 96 96 Oxygen Delivery Fraction of Inspired Oxygen 01/23/25 17:50 01/23/25 18:41 01/23/25 18:45 Temperature 99.4 F 98.8 F 98.8 F Pulse Rate 90 87 Respiratory Rate 18 24 H Blood Pressure 173/88 H 157/99 H Pulse Oximetry 95 98 Oxygen Delivery Fraction of Inspired Oxygen 01/23/25 18:46 01/23/25 18:47 01/23/25 18:49 Temperature 98.8 F 98.8 F Pulse Rate 86 85 84 Respiratory Rate 23 H 24 H Blood Pressure 146/113 H Pulse Oximetry 98 97 98 Oxygen Delivery Mechanical Ventilation Fraction of Inspired Oxygen 100 01/23/25 18:49 01/23/25 18:53 01/23/25 18:56 Temperature 98.7 F 98.8 F Pulse Rate 87 85 85 Respiratory Rate 25 H 27 H 22 H Blood Pressure 153/115 H 147/78 H Pulse Oximetry 97 100 Oxygen Delivery Fraction of Inspired Oxygen 01/23/25 18:56 01/23/25 19:00 01/23/25 19:00 Temperature 98.8 F 98.8 F Pulse Rate 83 84 84 Respiratory Rate 24 H 20 23 H Blood Pressure 145/92 H Pulse Oximetry 99 97 Oxygen Delivery Fraction of Inspired Oxygen 01/23/25 19:08 01/23/25 19:10 01/23/25 19:13 Temperature 98.8 F 98.8 F 98.9 F Pulse Rate 79 79 79 Respiratory Rate 22 H 22 H 23 H Blood Pressure 96/72 L 101/74 113/82 Pulse Oximetry 99 98 Oxygen Delivery Fraction of Inspired Oxygen 01/23/25 19:15 01/23/25 19:16 01/23/25 19:19 Temperature 98.8 F 98.8 F 98.8 F Pulse Rate 83 79 81 Respiratory Rate 22 H 21 H 23 H Blood Pressure 130/84 117/71 Pulse Oximetry 99 99 99 Oxygen Delivery Fraction of Inspired Oxygen 01/23/25 19:22 01/23/25 19:25 01/23/25 19:45 Temperature 98.8 F 98.8 F Pulse Rate 78 76 76 Respiratory Rate 23 H 21 H 18 Blood Pressure 119/87 115/75 126/88 Pulse Oximetry 99 97 99 Oxygen Delivery Fraction of Inspired Oxygen 01/23/25 20:25 01/23/25 20:30 01/23/25 20:30 Temperature Pulse Rate 98 102 H 102 H Respiratory Rate 24 H 23 H Blood Pressure Pulse Oximetry 100 100 Oxygen Delivery Mechanical Ventilation Mechanical Ventilation Fraction of Inspired Oxygen 100 100 01/23/25 21:00 01/23/25 21:00 01/23/25 21:52 Temperature 99.9 F H Pulse Rate 97 95 Respiratory Rate 20 27 H Blood Pressure 179/114 H Pulse Oximetry 100 100 Oxygen Delivery Mechanical Ventilation Fraction of Inspired Oxygen 100 01/23/25 22:00 01/23/25 22:00 01/23/25 22:00 Temperature 100.6 F H 100.6 F H Pulse Rate 95 95 95 Respiratory Rate 26 H 26 H Blood Pressure 145/107 H 145/107 H Pulse Oximetry 100 100 Oxygen Delivery Fraction of Inspired Oxygen 01/23/25 22:54 01/23/25 23:00 01/23/25 23:00 Temperature 100.8 F H 100.8 F H Pulse Rate 86 84 84 Respiratory Rate 20 20 Blood Pressure 106/76 122/93 H 122/93 H Pulse Oximetry 100 100 Oxygen Delivery Fraction of Inspired Oxygen 01/23/25 23:32 01/23/25 23:46 01/23/25 23:51 Temperature Pulse Rate 75 79 76 Respiratory Rate 21 H 22 H Blood Pressure 115/86 Pulse Oximetry 100 Oxygen Delivery Mechanical Ventilation Fraction of Inspired Oxygen 60 01/24/25 00:00 01/24/25 00:00 01/24/25 00:00 Temperature 100.8 F H 100.8 F H Pulse Rate 78 78 76 Respiratory Rate 20 20 Blood Pressure 117/89 117/89 Pulse Oximetry 100 100 Oxygen Delivery Fraction of Inspired Oxygen 01/24/25 00:00 01/24/25 00:00 01/24/25 00:00 Temperature Pulse Rate 78 78 78 Respiratory Rate 20 20 Blood Pressure 117/89 Pulse Oximetry 100 Oxygen Delivery Mechanical Ventilation Fraction of Inspired Oxygen 60 01/24/25 00:01 01/24/25 00:03 01/24/25 00:03 Temperature Pulse Rate 77 78 78 Respiratory Rate 22 H 20 20 Blood Pressure 117/89 Pulse Oximetry Oxygen Delivery Fraction of Inspired Oxygen 01/24/25 00:16 01/24/25 01:00 01/24/25 01:00 Temperature 100.4 F H Pulse Rate 75 67 67 Respiratory Rate 21 H 18 18 Blood Pressure 107/81 94/69 L 94/69 L Pulse Oximetry 100 Oxygen Delivery Fraction of Inspired Oxygen 01/24/25 01:00 01/24/25 01:17 01/24/25 01:50 Temperature 100.4 F H Pulse Rate 67 64 62 Respiratory Rate 18 18 Blood Pressure 94/69 L Pulse Oximetry 100 100 Oxygen Delivery Mechanical Ventilation Fraction of Inspired Oxygen 60 01/24/25 01:56 01/24/25 02:00 01/24/25 02:00 Temperature 100.1 F H Pulse Rate 62 61 61 Respiratory Rate 18 18 Blood Pressure 101/76 101/72 Pulse Oximetry 100 Oxygen Delivery Fraction of Inspired Oxygen 01/24/25 02:00 01/24/25 02:00 01/24/25 02:00 Temperature 100.1 F H Pulse Rate 61 61 61 Respiratory Rate 18 18 18 Blood Pressure 101/72 101/72 Pulse Oximetry 100 Oxygen Delivery Fraction of Inspired Oxygen 01/24/25 02:00 01/24/25 02:00 01/24/25 03:00 Temperature 99.6 F Pulse Rate 61 61 60 Respiratory Rate 18 18 Blood Pressure 101/72 118/81 Pulse Oximetry 100 Oxygen Delivery Fraction of Inspired Oxygen 01/24/25 03:00 01/24/25 04:00 01/24/25 04:00 Temperature 99.6 F 99.1 F Pulse Rate 60 58 L Respiratory Rate 18 18 Blood Pressure 118/81 117/85 Pulse Oximetry 100 100 Oxygen Delivery Fraction of Inspired Oxygen 40 01/24/25 04:00 01/24/25 04:00 01/24/25 04:00 Temperature 99.1 F Pulse Rate 58 L 58 L 58 L Respiratory Rate 18 18 18 Blood Pressure 117/85 117/85 Pulse Oximetry 100 Oxygen Delivery Fraction of Inspired Oxygen 01/24/25 04:00 01/24/25 04:00 01/24/25 04:00 Temperature Pulse Rate 58 L 59 L 58 L Respiratory Rate 18 18 Blood Pressure 117/85 Pulse Oximetry 100 Oxygen Delivery Mechanical Ventilation Fraction of Inspired Oxygen 40 01/24/25 04:00 01/24/25 05:00 01/24/25 05:00 Temperature 98.7 F 98.7 F Pulse Rate 58 L 57 L 57 L Respiratory Rate 18 18 Blood Pressure 115/78 115/78 Pulse Oximetry 98 98 Oxygen Delivery Fraction of Inspired Oxygen 01/24/25 05:05 01/24/25 06:00 01/24/25 06:00 Temperature 98.4 F 98.4 F Pulse Rate 57 L 58 L 58 L Respiratory Rate 18 18 Blood Pressure 130/83 130/83 Pulse Oximetry 96 98 98 Oxygen Delivery Mechanical Ventilation Fraction of Inspired Oxygen 40 01/24/25 06:00 01/24/25 06:00 01/24/25 06:00 Temperature Pulse Rate 58 L 58 L 58 L Respiratory Rate 18 18 Blood Pressure 130/83 Pulse Oximetry Oxygen Delivery Fraction of Inspired Oxygen 01/24/25 06:00 01/24/25 06:00 01/24/25 06:38 Temperature Pulse Rate 58 L 58 L 58 L Respiratory Rate 18 18 Blood Pressure 130/83 149/86 H Pulse Oximetry Oxygen Delivery Fraction of Inspired Oxygen 01/24/25 06:38 01/24/25 07:00 01/24/25 07:00 Temperature 98.3 F 98.3 F Pulse Rate 58 L 58 L 58 L Respiratory Rate 18 18 18 Blood Pressure 149/86 H 143/87 H 143/87 H Pulse Oximetry 98 98 Oxygen Delivery Fraction of Inspired Oxygen 01/24/25 07:40 01/24/25 07:40 01/24/25 08:00 Temperature 97.5 F L Pulse Rate 56 L 56 L 68 Respiratory Rate 18 18 Blood Pressure 166/76 H Pulse Oximetry 100 100 Oxygen Delivery Mechanical Ventilation Fraction of Inspired Oxygen 40 01/24/25 08:00 01/24/25 08:00 01/24/25 08:00 Temperature Pulse Rate 61 61 61 Respiratory Rate 18 18 Blood Pressure 156/96 H 156/96 H Pulse Oximetry Oxygen Delivery Fraction of Inspired Oxygen 01/24/25 08:08 01/24/25 08:08 01/24/25 09:00 Temperature 96 F L Pulse Rate 69 69 65 Respiratory Rate 21 H 21 H 18 Blood Pressure 190/82 H Pulse Oximetry 100 Oxygen Delivery Fraction of Inspired Oxygen Exam Narrative: General: Intubated, sedated and on Nimbex infusion HEENT:? Pupils equal and reactive, sclera is clear cough ETT in place Neck:? Supple Respiratory:? Coarse breath sounds bilaterally, decreased at bases, no wheeze Cardiac:? Irregularly irregular rhythm Abdomen:? Soft, nontender, nondistended, hypoactive bowel sound Extremities:? Trace edema bilaterally, palpable pulses. Blistering noted on the right hand Neuro:? Patient is intubated, sedated, on Nimbex infusion Skin:? No lesions noted Psych:? Unable to assess at this time Results Labs 01/24/25 05:41 01/24/25 05:41 Labs: Short CBC 01/23/25 01/23/25 01/24/25 Range/Units 16:50 22:51 05:41 WBC 10.0 20.8 H 14.6 H (4.5-10.0) K/mm3 Hgb 16.1 16.4 15.4 (14.0-18.0) g/dL Hct 49.3 48.5 46.1 (42.0-52.0) % Plt Count 268 299 243 (150-375) k/mm3 BMP 01/23/25 01/24/25 16:50 05:41 Sodium 142 136 L Potassium 3.7 3.5 Chloride 102 101 Carbon Dioxide 21 L 27 BUN 7 L 14 D Creatinine 1.11 1.28 Glucose 109 164 H Calcium 9.9 8.3 L Cardiac Enzymes 01/23/25 01/23/25 01/24/25 Range/Units 16:50 22:51 07:51 Troponin I 0.041 H* 8.530 H* D 3.310 H* (0.000-0.034) ng/mL Liver Function 01/23/25 01/24/25 Range/Units 16:50 05:41 Total Bilirubin 1.7 H 0.8 (0.2-1.3) mg/dL AST 55 97 H (17-59) U/L ALT 46 69 H (6-50) U/L Alkaline Phosphatase 70 70 (38-126) U/L Albumin 4.6 3.7 (3.5-5.1) g/dL Urine 01/24/25 Range/Units 08:04 Urine Color Yellow (Yellow) Urine Appearance Turbid H (Clear) Urine pH 5.0 (5.0-9.0) Ur Specific [place] 1.028 (1.001-1.035) Urine Protein 2+ H (Negative) mg/dL Urine Glucose (UA) Negative (Negative) mg/dL Quality VTE Prophylaxis VTE prophylaxis: pharmacologic ordered Hospitalist MIPS Advance Care Plan I have confirmed that the patient's Advanced Care Plan is present, code status is documented, or surrogate decision maker is listed in patient medical record.: Yes Medication Reconciliation I have utilized all available resources to obtain, update and review the patients current medications (includes all prescriptions, OTC, herbals, cannabis, and nutritional supplements).: Yes
[2025-01-24] MEDS: LACTATED RINGERS 1,000 ML 75 ML IV CONT ×2 (10:24→23:45)
--- NOTE | 2025-01-24 10:27 | PM.CNCAR ---
Assessment and Plan Assessment and plan (1) Coronary artery disease involving [place] coronary artery of [place] heart without angina pectoris: Code(s): I25.10 - Atherosclerotic heart disease of [place] coronary artery without angina pectoris Status: Acute (2) Cardiac arrest with ventricular fibrillation: Code(s): I46.9 - Cardiac arrest, cause unspecified; I49.01 - Ventricular fibrillation Status: Acute (3) Chronic anticoagulation: Code(s): Z79.01 - ocean transportation intermediary (current) use of anticoagulants Status: Acute (4) Mixed hyperlipidemia: Code(s): E78.2 - Mixed hyperlipidemia Status: Acute (5) Essential hypertension: Code(s): I10 - Essential (primary) hypertension Status: Acute (6) Chronic atrial fibrillation: Code(s): I48.20 - Chronic atrial fibrillation, unspecified Status: Acute (7) Morbid obesity with BMI of 40.0-44.9, adult: Code(s): E66.01 - Morbid (severe) obesity due to excess calories; Z68.41 - Body mass index [BMI] 40.0-44.9, adult Status: Acute Plan 79-year-old male with past medical history of hypertension morbid obesity, chronic atrial fibrillation status post ablation on chronic anticoagulation, coronary artery disease, hypertension, systolic heart failure with LVEF of 45-50% by echo in 2021, alcohol abuse, recent fall on [place] very sustained right wrist fracture placed in a splint (has superficial infection and placed on antibiotics) with VFib arrest s/p shock, CPR with ROSC. Admitted to the ICU. 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 His chest x-ray shows pulmonary congestion is much decreased. Renal function is rising. Hold off on further diuresis at this time. Continue monitoring on telemetry. Check and replace electrolytes to keep potassium greater than 4 and magnesium greater than 2. Add empagliflozin 10 mg p.o. daily for diastolic heart failure. TTE today. Continue amiodarone drip given VFib arrest. After drip is complete can switch to amiodarone 100 mg p.o. daily which is his home dose. Continue heparin drip. Hold apixaban as he is on heparin drip. Start aspirin 81 mg daily. Troponin is downtrending. Plan for cardiac catheterization in the next 1-2 days once renal function starts to down trend. Start coreg 3.125 mg p.o. b.i.d. which is his home dose. Restart statin once LFTs are back to normal. Management of other medical problems per primary team. Total time: 85 minutes including review of medical records, imaging studies, and coordinating care. History of Present Illness History of Present Illness Consult date/time: 01/24/25 10:27 Reason For Visit: Cardiac arrest Narrative: 79-year-old male with past medical history of hypertension morbid obesity, chronic atrial fibrillation status post ablation on chronic anticoagulation, coronary artery disease, hypertension, diastolic heart failure, alcohol abuse, recent fall on [place]/ very sustained right wrist fracture placed in a splint (has superficial infection and placed on antibiotics) presented to the ER with chief complaints of dizziness yesterday. While in the ER he suffered and VFib arrest. He was shocked and CPR was for performed with return of spontaneous circulation. Amiodarone was started. Patient was intubated and sedated. Cardiology was consulted as initial EKG showed ST elevation. However repeat EKGs showed atrial fibrillation without any ST elevation but with some ST depression. Given no ST elevation on EKG, patient was not taken to cath lab radiological technologist emergently. Heparin drip was started. Patient is currently intubated and sedated no further history can be obtained from him. Workup: Creatinine: 1.11 Lactate: 11.1 Troponin: 0.041, 8.530 BNP: 670 EKG: Sinus rhythm, atrial fibrillation, right bundle branch block, ST depressions in lateral leads Chest x-ray at admission: Cardiomegaly with pulmonary edema Chest x-ray today: Cardiomegaly with improved pulmonary edema CT head: No acute intracranial hemorrhage or extra axial fluid collections. Prior cardiac workup: TTE in 2021: LVEF 65%, grade 2 diastolic dysfunction, mild aortic stenosis with peak velocity of 2.7 m/sec and mean gradient of 13 mm Hg Review of Systems Review of Systems: A complete review of systems could not be performed as patient is intubated and sedated. [facility] Past Medical History Medical History (Updated 01/24/25 @ 11:11 by Amy Goodson MD) Chronic otitis media of left ear with effusion Retraction pocket of tympanic membrane Acute otitis media of left ear with perforated tympanic membrane Chronic otitis media of right ear with effusion Chronic otitis media of both ears Rowell's palsy Diverticulitis Morbid obesity with BMI of 40.0-44.9, adult Folate deficiency anemia Level normal at 16.2 with hemoglobin 15.7 on 06/10/2024. Encounter for prostate cancer screening PSA 1.53n 06/10/24. 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 APAP at 5-16 cm of water pressure 06/04/2020 Abnormal fasting glucose (04/03/20) Fasting glucose 105, hemoglobin A1c 5.9 with microalbumin ratio of 6 with GFR 87 on 06/10/2024. BMI 37.0-37.9, adult Chronic anxiety Chronic depression Eczema Vitamin B12 deficiency anemia Level normal at 1457 with hemoglobin 15.7 on 06/10/2024. Vitamin D deficiency, unspecified Level normal at 36 on 06/10/2024. Hypogonadism male Chronic sinusitis Chronic serous otitis media of right ear Bilateral hearing loss Chronic bilateral low back pain with right-sided sciatica Surgical History Surgical History (Updated 01/23/25 @ 21:05 by Alla Porter APRN) H/O cardiac catheterization History of tonsillectomy History of radiofrequency ablation procedure for cardiac arrhythmia A flutter ablation, [facility] Status post cataract extraction of both eyes with insertion of intraocular lens History of cardiac radiofrequency ablation 5 years ago for AFib History of bowel resection 19 years old Family History Family History Mother Patient's mother is , Onset Age: 92 Acute myocardial infarction Skin cancer Father Family history of cardiovascular disease, Onset Age: 57 Acute myocardial infarction Social History Social History (Updated 01/23/25 @ 20:58 by Alla Porter, COLIN) Social History: He drinks 2-3 bottles of wine a night. No drug use except occasional marijuana use. Quit tobacco at age 28 after smoking 2 packs a day for 10 years. He lives alone. He is but it sounds like he still is in contact with his ex- quite frequently lives in [facility]. He has 2 step children. He has 1 son who is still living and a daughter who of alcohol and drug use. Code status: full code Surrogate decision maker for healthcare: Juan Pablo (son) Smoking packs per day: 2 Smoking cigarettes per day: 40.0 Years smoked: 11 Smoking pack-years: 22.00 Smoking status: Former smoker Tobacco type: cigarettes and cigars Alcohol intake: current Drinks per week: 70 Alcohol use details: beer or wine Varies, sometimes has a bottle of wine with his meal daily Substance use: former Substance use type: marijuana Spiritual care concerns: No Meds Home Medications and Allergies Home Medications ?Medication ?Instructions ?Recorded ?Confirmed ?Type cholecalciferol (vitamin D3) 125 5,000 unit PO DAILY 04/04/19 01/24/25 History mcg (5,000 unit) tablet cyanocobalamin (vitamin B-12) 1,000 mcg PO DAILY 10/29/23 01/24/25 History 1,000 mcg tablet apixaban 5 mg tablet (Eliquis) 5 mg PO BID #60 tabs 02/19/24 01/24/25 Rx atorvastatin 80 mg tablet 80 mg PO QHS #90 tabs 04/27/24 01/24/25 Rx fexofenadine 180 mg tablet 180 mg PO DAILY chronic seasonal 05/12/24 01/24/25 Rx (Aliza Allergy) allergic rhinitis #30 tabs amiodarone 100 mg tablet 100 mg PO DAILY #90 tabs 06/09/24 01/24/25 Rx carvedilol 6.25 mg tablet 6.25 mg PO Q12H #180 tabs 06/21/24 01/24/25 Rx escitalopram oxalate 20 mg tablet 20 mg PO DAILY #90 tabs 06/21/24 01/24/25 Rx (Lexapro) irbesartan 150 mg tablet 150 mg PO DAILY #90 tabs 06/21/24 01/24/25 Rx Allergies Allergy/AdvReac Type Severity Reaction Status Date / Time hydrochlorothiazide Allergy Intermediate Unknown Verified 01/24/25 00:48 lisinopril Allergy Intermediate Unknown Verified 01/24/25 00:48 Vital Signs Vital Signs - 24 hr 01/23/25 15:37 01/23/25 16:05 01/23/25 16:33 Temperature 36.4 C L 36.6 C Pulse Rate 62 91 86 Respiratory Rate 18 18 13 Blood Pressure 146/75 H 137/98 H Pulse Oximetry 96 99 Oxygen Delivery Room Air Fraction of Inspired Oxygen 01/23/25 16:39 01/23/25 16:44 01/23/25 16:45 Temperature Pulse Rate 81 97 95 Respiratory Rate 22 H 7 L Blood Pressure 228/202 H 187/175 H Pulse Oximetry 70 L 71 L Oxygen Delivery Fraction of Inspired Oxygen 01/23/25 16:46 01/23/25 16:49 01/23/25 16:50 Temperature Pulse Rate 64 75 71 Respiratory Rate 12 Blood Pressure 145/98 H 140/97 H 140/97 H Pulse Oximetry 78 L 85 L 90 Oxygen Delivery Fraction of Inspired Oxygen 01/23/25 16:52 01/23/25 16:55 01/23/25 17:00 Temperature Pulse Rate 72 87 68 Respiratory Rate 0 L 0 L Blood Pressure 152/102 H 164/111 H Pulse Oximetry 87 L 82 L Oxygen Delivery Mechanical Ventilation Fraction of Inspired Oxygen 100 01/23/25 17:00 01/23/25 17:02 01/23/25 17:08 Temperature Pulse Rate 86 84 93 Respiratory Rate 10 L 18 Blood Pressure 199/135 H 200/136 H Pulse Oximetry 86 L 88 L 97 Oxygen Delivery Fraction of Inspired Oxygen 01/23/25 17:10 01/23/25 17:14 01/23/25 17:15 Temperature 36.9 C 36.9 C Pulse Rate 65 68 68 Respiratory Rate 18 18 18 Blood Pressure 188/121 H 173/112 H Pulse Oximetry 97 Oxygen Delivery Fraction of Inspired Oxygen 01/23/25 17:16 01/23/25 17:16 01/23/25 17:19 Temperature 37.0 C 37.1 C Pulse Rate 68 68 86 Respiratory Rate 18 18 19 Blood Pressure 173/114 H 183/127 H Pulse Oximetry Oxygen Delivery Fraction of Inspired Oxygen 01/23/25 17:22 01/23/25 17:25 01/23/25 17:28 Temperature 37.2 C 37.3 C 37.4 C Pulse Rate 102 H 94 93 Respiratory Rate 18 19 16 Blood Pressure 195/131 H 192/119 H 187/120 H Pulse Oximetry 94 96 96 Oxygen Delivery Fraction of Inspired Oxygen 01/23/25 17:28 01/23/25 17:30 01/23/25 17:31 Temperature 37.4 C 37.4 C 37.4 C Pulse Rate 92 92 Respiratory Rate 16 18 18 Blood Pressure 187/120 H 182/106 H Pulse Oximetry 96 96 96 Oxygen Delivery Fraction of Inspired Oxygen 01/23/25 17:34 01/23/25 17:37 01/23/25 17:41 Temperature 37.5 C 37.5 C 37.5 C Pulse Rate 90 88 92 Respiratory Rate 18 18 18 Blood Pressure 174/119 H 175/115 H 168/91 H Pulse Oximetry 97 97 96 Oxygen Delivery Fraction of Inspired Oxygen 01/23/25 17:44 01/23/25 17:45 01/23/25 17:46 Temperature 37.5 C 37.5 C 37.5 C Pulse Rate 94 91 91 Respiratory Rate 18 18 18 Blood Pressure 176/112 H 166/119 H Pulse Oximetry 96 96 96 Oxygen Delivery Fraction of Inspired Oxygen 01/23/25 17:50 01/23/25 18:41 01/23/25 18:45 Temperature 37.4 C 37.1 C 37.1 C Pulse Rate 90 87 Respiratory Rate 18 24 H Blood Pressure 173/88 H 157/99 H Pulse Oximetry 95 98 Oxygen Delivery Fraction of Inspired Oxygen 01/23/25 18:46 01/23/25 18:47 01/23/25 18:49 Temperature 37.1 C 37.1 C Pulse Rate 86 85 84 Respiratory Rate 23 H 24 H Blood Pressure 146/113 H Pulse Oximetry 98 97 98 Oxygen Delivery Mechanical Ventilation Fraction of Inspired Oxygen 100 01/23/25 18:49 01/23/25 18:53 01/23/25 18:56 Temperature 37.1 C 37.1 C Pulse Rate 87 85 85 Respiratory Rate 25 H 27 H 22 H Blood Pressure 153/115 H 147/78 H Pulse Oximetry 97 100 Oxygen Delivery Fraction of Inspired Oxygen 01/23/25 18:56 01/23/25 19:00 01/23/25 19:00 Temperature 37.1 C 37.1 C Pulse Rate 83 84 84 Respiratory Rate 24 H 20 23 H Blood Pressure 145/92 H Pulse Oximetry 99 97 Oxygen Delivery Fraction of Inspired Oxygen 01/23/25 19:08 01/23/25 19:10 01/23/25 19:13 Temperature 37.1 C 37.1 C 37.2 C Pulse Rate 79 79 79 Respiratory Rate 22 H 22 H 23 H Blood Pressure 96/72 L 101/74 113/82 Pulse Oximetry 99 98 Oxygen Delivery Fraction of Inspired Oxygen 01/23/25 19:15 01/23/25 19:16 01/23/25 19:19 Temperature 37.1 C 37.1 C 37.1 C Pulse Rate 83 79 81 Respiratory Rate 22 H 21 H 23 H Blood Pressure 130/84 117/71 Pulse Oximetry 99 99 99 Oxygen Delivery Fraction of Inspired Oxygen 01/23/25 19:22 01/23/25 19:25 01/23/25 19:45 Temperature 37.1 C 37.1 C Pulse Rate 78 76 76 Respiratory Rate 23 H 21 H 18 Blood Pressure 119/87 115/75 126/88 Pulse Oximetry 99 97 99 Oxygen Delivery Fraction of Inspired Oxygen 01/23/25 20:25 01/23/25 20:30 01/23/25 20:30 Temperature Pulse Rate 98 102 H 102 H Respiratory Rate 24 H 23 H Blood Pressure Pulse Oximetry 100 100 Oxygen Delivery Mechanical Ventilation Mechanical Ventilation Fraction of Inspired Oxygen 100 100 01/23/25 21:00 01/23/25 21:00 01/23/25 21:52 Temperature 37.7 C H Pulse Rate 97 95 Respiratory Rate 20 27 H Blood Pressure 179/114 H Pulse Oximetry 100 100 Oxygen Delivery Mechanical Ventilation Fraction of Inspired Oxygen 100 01/23/25 22:00 01/23/25 22:00 01/23/25 22:00 Temperature 38.1 C H 38.1 C H Pulse Rate 95 95 95 Respiratory Rate 26 H 26 H Blood Pressure 145/107 H 145/107 H Pulse Oximetry 100 100 Oxygen Delivery Fraction of Inspired Oxygen 01/23/25 22:54 01/23/25 23:00 01/23/25 23:00 Temperature 38.2 C H 38.2 C H Pulse Rate 86 84 84 Respiratory Rate 20 20 Blood Pressure 106/76 122/93 H 122/93 H Pulse Oximetry 100 100 Oxygen Delivery Fraction of Inspired Oxygen 01/23/25 23:32 01/23/25 23:46 01/23/25 23:51 Temperature Pulse Rate 75 79 76 Respiratory Rate 21 H 22 H Blood Pressure 115/86 Pulse Oximetry 100 Oxygen Delivery Mechanical Ventilation Fraction of Inspired Oxygen 60 01/24/25 00:00 01/24/25 00:00 01/24/25 00:00 Temperature 38.2 C H 38.2 C H Pulse Rate 78 78 76 Respiratory Rate 20 20 Blood Pressure 117/89 117/89 Pulse Oximetry 100 100 Oxygen Delivery Fraction of Inspired Oxygen 01/24/25 00:00 01/24/25 00:00 01/24/25 00:00 Temperature Pulse Rate 78 78 78 Respiratory Rate 20 20 Blood Pressure 117/89 Pulse Oximetry 100 Oxygen Delivery Mechanical Ventilation Fraction of Inspired Oxygen 60 01/24/25 00:01 01/24/25 00:03 01/24/25 00:03 Temperature Pulse Rate 77 78 78 Respiratory Rate 22 H 20 20 Blood Pressure 117/89 Pulse Oximetry Oxygen Delivery Fraction of Inspired Oxygen 01/24/25 00:16 01/24/25 01:00 01/24/25 01:00 Temperature 38.0 C H Pulse Rate 75 67 67 Respiratory Rate 21 H 18 18 Blood Pressure 107/81 94/69 L 94/69 L Pulse Oximetry 100 Oxygen Delivery Fraction of Inspired Oxygen 01/24/25 01:00 01/24/25 01:17 01/24/25 01:50 Temperature 38.0 C H Pulse Rate 67 64 62 Respiratory Rate 18 18 Blood Pressure 94/69 L Pulse Oximetry 100 100 Oxygen Delivery Mechanical Ventilation Fraction of Inspired Oxygen 60 01/24/25 01:56 01/24/25 02:00 01/24/25 02:00 Temperature 37.8 C H Pulse Rate 62 61 61 Respiratory Rate 18 18 Blood Pressure 101/76 101/72 Pulse Oximetry 100 Oxygen Delivery Fraction of Inspired Oxygen 01/24/25 02:00 01/24/25 02:00 01/24/25 02:00 Temperature 37.8 C H Pulse Rate 61 61 61 Respiratory Rate 18 18 18 Blood Pressure 101/72 101/72 Pulse Oximetry 100 Oxygen Delivery Fraction of Inspired Oxygen 01/24/25 02:00 01/24/25 02:00 01/24/25 03:00 Temperature 37.6 C Pulse Rate 61 61 60 Respiratory Rate 18 18 Blood Pressure 101/72 118/81 Pulse Oximetry 100 Oxygen Delivery Fraction of Inspired Oxygen 01/24/25 03:00 01/24/25 04:00 01/24/25 04:00 Temperature 37.6 C 37.3 C Pulse Rate 60 58 L Respiratory Rate 18 18 Blood Pressure 118/81 117/85 Pulse Oximetry 100 100 Oxygen Delivery Fraction of Inspired Oxygen 40 01/24/25 04:00 01/24/25 04:00 01/24/25 04:00 Temperature 37.3 C Pulse Rate 58 L 58 L 58 L Respiratory Rate 18 18 18 Blood Pressure 117/85 117/85 Pulse Oximetry 100 Oxygen Delivery Fraction of Inspired Oxygen 01/24/25 04:00 01/24/25 04:00 01/24/25 04:00 Temperature Pulse Rate 58 L 59 L 58 L Respiratory Rate 18 18 Blood Pressure 117/85 Pulse Oximetry 100 Oxygen Delivery Mechanical Ventilation Fraction of Inspired Oxygen 40 01/24/25 04:00 01/24/25 05:00 01/24/25 05:00 Temperature 37.1 C 37.1 C Pulse Rate 58 L 57 L 57 L Respiratory Rate 18 18 Blood Pressure 115/78 115/78 Pulse Oximetry 98 98 Oxygen Delivery Fraction of Inspired Oxygen 01/24/25 05:05 01/24/25 06:00 01/24/25 06:00 Temperature 36.9 C 36.9 C Pulse Rate 57 L 58 L 58 L Respiratory Rate 18 18 Blood Pressure 130/83 130/83 Pulse Oximetry 96 98 98 Oxygen Delivery Mechanical Ventilation Fraction of Inspired Oxygen 40 01/24/25 06:00 01/24/25 06:00 01/24/25 06:00 Temperature Pulse Rate 58 L 58 L 58 L Respiratory Rate 18 18 Blood Pressure 130/83 Pulse Oximetry Oxygen Delivery Fraction of Inspired Oxygen 01/24/25 06:00 01/24/25 06:00 01/24/25 06:38 Temperature Pulse Rate 58 L 58 L 58 L Respiratory Rate 18 18 Blood Pressure 130/83 149/86 H Pulse Oximetry Oxygen Delivery Fraction of Inspired Oxygen 01/24/25 06:38 01/24/25 07:00 01/24/25 07:00 Temperature 36.8 C 36.8 C Pulse Rate 58 L 58 L 58 L Respiratory Rate 18 18 18 Blood Pressure 149/86 H 143/87 H 143/87 H Pulse Oximetry 98 98 Oxygen Delivery Fraction of Inspired Oxygen 01/24/25 07:40 01/24/25 07:40 01/24/25 08:00 Temperature 36.4 C L Pulse Rate 56 L 56 L 68 Respiratory Rate 18 18 Blood Pressure 166/76 H Pulse Oximetry 100 100 Oxygen Delivery Mechanical Ventilation Fraction of Inspired Oxygen 40 01/24/25 08:00 01/24/25 08:00 01/24/25 08:00 Temperature Pulse Rate 61 61 61 Respiratory Rate 18 18 Blood Pressure 156/96 H 156/96 H Pulse Oximetry Oxygen Delivery Fraction of Inspired Oxygen 01/24/25 08:00 01/24/25 08:00 01/24/25 08:00 Temperature Pulse Rate 57 L Respiratory Rate Blood Pressure Pulse Oximetry 99 Oxygen Delivery Mechanical Ventilation Fraction of Inspired Oxygen 40 40 01/24/25 08:00 01/24/25 08:08 01/24/25 08:08 Temperature 36.6 C Pulse Rate 59 L 69 69 Respiratory Rate 18 21 H 21 H Blood Pressure 156/96 H Pulse Oximetry 99 Oxygen Delivery Fraction of Inspired Oxygen 01/24/25 09:00 01/24/25 09:00 01/24/25 10:00 Temperature 35.5 C L 35.9 C L 34.9 C L Pulse Rate 65 65 68 Respiratory Rate 18 18 18 Blood Pressure 190/82 H 186/76 H 179/74 H Pulse Oximetry 100 100 88 L Oxygen Delivery Fraction of Inspired Oxygen 01/24/25 10:00 01/24/25 10:00 Temperature 34.9 C L Pulse Rate 68 68 Respiratory Rate 18 Blood Pressure 179/74 H Pulse Oximetry 88 L Oxygen Delivery Fraction of Inspired Oxygen Exam Narrative: General: Sedated and intubated, not moving any extremities Neck: Supple, unable to assess JVD due to patient being intubated Chest: Bibasilar crackles present, no rhonchi Cardiac: S1, S2 +, regular rate, regular rhythm, no murmurs or rubs Extremities: Bilateral lower extremity edema 1+, no skin rash Neurologic: Sedated and intubated, not moving any extremities Results Labs and Meds 01/24/25 05:41 01/24/25 05:41 Lab results: Cardiac Enzymes 01/23/25 01/23/25 01/24/25 Range/Units 16:50 22:51 05:41 AST 55 97 H (17-59) U/L Troponin I 0.041 H* 8.530 H* D (0.000-0.034) ng/mL 01/24/25 Range/Units 07:51 AST (17-59) U/L Troponin I 3.310 H* (0.000-0.034) ng/mL Coagulation 01/23/25 01/23/25 01/24/25 Range/Units 16:50 22:51 05:41 PT 15.5 H 15.5 H (11.1-14.7) Seconds APTT 27.3 26.9 79.5 H (22.3-36.8) Seconds Lipids 01/23/25 01/23/25 Range/Units 16:50 22:51 Triglycerides 186 H 232 H (<150) mg/dL CBC 01/23/25 01/23/25 01/24/25 Range/Units 16:50 22:51 05:41 WBC 10.0 20.8 H 14.6 H (4.5-10.0) K/mm3 RBC 4.84 4.90 4.57 L (4.6-6.20) M/mm3 Hgb 16.1 16.4 15.4 (14.0-18.0) g/dL Hct 49.3 48.5 46.1 (42.0-52.0) % Plt Count 268 299 243 (150-375) k/mm3 Lymph # (Auto) 5.10 H 3.28 H 2.68 (0.9-3.2) K/mm3 [place] # (Auto) 1.2 H 1.7 H 1.4 H (0.1-0.6) K/mm3 Eos # (Auto) 0.1 0.0 0.0 (0-0.3) K/mm3 Baso # (Auto) 0.0 0.1 0.1 (0.0-0.1) K/mm3 Comprehensive Metabolic Panel 01/23/25 01/24/25 Range/Units 16:50 05:41 Sodium 142 136 L (137-145) mmol/L Potassium 3.7 3.5 (3.4-5.0) mmol/L Chloride 102 101 (98-107) mmol/L Carbon Dioxide 21 L 27 (22-30) mmol/L BUN 7 L 14 D (9-20) mg/dL Creatinine 1.11 1.28 (0.7-1.3) mg/dL Glucose 109 164 H (65-110) mg/dL Calcium 9.9 8.3 L (8.4-10.2) mg/dL AST 55 97 H (17-59) U/L ALT 46 69 H (6-50) U/L Alkaline Phosphatase 70 70 (38-126) U/L Total Protein 7.9 6.7 (6.3-8.2) g/dL Albumin 4.6 3.7 (3.5-5.1) g/dL Intake and Output 01/23/25 01/24/25 01/24/25 23:59 07:59 15:59 Intake Total 33.3 933.0 72.8 Output Total 600 450 250 Balance -566.7 483.0 -177.2 Intake: IV 33.3 933.0 72.8 Amiodarone 360 mg/D5w 200 ml 118.2 33.3 360 mg In 200 ml @ 0.5 MG/MIN 16.667 mls/hr IV CONT .Q12H [facility] Rx#:[id number] Cisatracurium Besylate 200 mg 92.5 15.3 In Sodium Chloride 0.9% IV 80 ml @ 2 MCG/KG/MIN 8.976 mls/hr IV CONT .Q11H9M [facility] Rx#: [id number] Fentanyl 2,500Mcg/Wf631bs(*Crx 4 15.4 5 2,500 mcg In 250 ml @ 25 MCG/HR 2.5 mls/hr IV CONT .Q72H [facility] Rx#:[id number] Heparin Sod/D5w 100 Units/ml 25 71.7 ,000 units In 250 ml @ 1,000 UNITS/HR 10 mls/hr IV CONT . Q24H [facility] Rx#:[id number] Propofol IV Emulsion 100 ml @ 29.3 135.2 19.2 10 MCG/KG/MIN 8.976 mls/hr IV CONT .Q11H9M [facility] Rx#:[id number] Doxycycline IV 100 mg In Sodium 100 Chloride 0.9% IV 100 ml @ 100 mls/hr IVPB ONCE [facility] Rx#: [id number] Piperacillin/Tazobactam Sod 3. 100 375 gm In Sodium Chloride 0.9% IV 50 ml @ 100 mls/hr IVPB Q6H [facility] Rx#:[id number] Vancomycin 1,250 mg/Ns 250 ml 1 250 ,250 mg In 250 ml @ 166.667 mls /hr IVPB ONCE ONE Rx#:[id number] cefTRIAXone 1 gm In Sodium 50 Chloride 0.9% IV 50 ml @ 100 mls/hr IVPB ONCE [facility] Rx#: [id number] Output: Catheter Urine 600 300 250 Urethral Catheter 600 300 250 Gastric Drainage 150 [place] Sump Oral 150 Patient Weight 01/24/25 23:59 Weight 138.8 kg
[2025-01-24 11:34] LABS: Hematocrit 47.4 % (42.0-52.0); Hemoglobin 15.9 g/dL (14.0-18.0); Mean Corpuscular HGB Conc 33.5 g/dl (32-36); Mean Corpuscular Hemoglobin 33.7 pg (26-34); Mean Corpuscular Volume 100.4 fl (80-100); Platelet Count Result 221 k/mm3 (150-375); Red Blood Count 4.72 M/mm3 (4.6-6.20); White Blood Count 12.8 K/mm3 (4.5-10.0)
[2025-01-24 11:39] LABS: Alveolar/Arterial O2 Gradient 259.6 mmHg; Carboxyhemoglobin 0.7 % THb (0-2.0); Fractional Inspired Oxygen 50 %; HCO3 ABG 20.4 mEq/l (22.0-26.0); Methemoglobin ABG 0.0 %THb (0-1.5); Oxygen Content ABG 21.0 %vol (16.0-22.0); Oxygen Saturation ABG 90.4 % (95.0-100.0); PCO2 ABG 34.3 mmHg (35.0-45.0); PO2 ABG 58.3 mmHg (80.0-100.0); PO2 FiO2 Ratio Arterial Blood 1.17 %; Reduced Hemoglobin 10.7 %THb (0-5.0)
[2025-01-24 11:52] LABS: INR 1.4; Prothrombin Time 17.1 Seconds (11.1-14.7)
[2025-01-24 11:59] LABS: Anion Gap 8 mmol/L (4-12); Blood Urea Nitrogen 12 mg/dL (9-20); Calcium 8.3 mg/dL (8.4-10.2); Carbon Dioxide 26 mmol/L (22-30); Chloride 101 mmol/L (98-107); Creatine Kinase 359 U/L (55-170); Estimated CRCL calculation 75 ml/min; Estimated Glomerular Filt Rate > 60; Glucose 172 mg/dL (65-110); Potassium 3.3 mmol/L (3.4-5.0); Sodium 135 mmol/L (137-145)
--- NOTE | 2025-01-24 12:00 | ECG_ITS ---
Test Date: 2025-01-24 12:06:55 Measurements Intervals [place] Rate: 70 P: 70 OR: 202 QRS: 13 QRSD: 144 T: 90 QT: 324 QTc: 351 Interpretive Statements SINUS RHYTHM WITH SINUS ARRHYTHMIA INTRAVENTRICULAR CONDUCTION DELAY MINIMAL Q WAVES- ANTEROLAT/HIGH LAT LEADS BORDERLINE ST-T WAVE ABNORMALITY- DIFFUSE LEADS BASELINE ARTIFACT- I, II, AVR, AVF, V1, V3 BORDERLINE ECG Compared to ECG 01/23/2025 16:46:17 WANDERING PACEMAKER NO LONGER PRESENT Right bundle-branch block no longer present Electronically Signed On 01-24-2025 12:53:54 RECORD CENTER COORDINATOR by Joss Cast D.O.
[2025-01-24 12:09] LABS: Modified Allen's Test Pass; Site Drawn LEFT RADIAL
[2025-01-24 12:10] LABS: Arterial Blood Gas Ventilator rate 18 /MIN
[2025-01-24 12:11] LABS: Arterial Blood Gas Tidal Volume 420 ml
[2025-01-24 12:17] LABS: Partial Thromboplastin Time 105.0 Seconds (22.3-36.8)
[2025-01-24] MEDS: MAGNESIUM SULF 2 GM/WATER 50ML 2 GM/50 ML BAG IVPB (12:23)
[2025-01-24] MEDS: EPINEPHrine INJ 1 MG/10 ML SYRINGE 0.5 MG IV PUSH (12:23)
[2025-01-24] MEDS: MIDAZOLAM 100MG/NS 100ML(*CRX) 100 MG/100 ML BAG IV CONT (12:25)
[2025-01-24] MEDS: ASPIRIN 81 MG ENTERIC TABLET PO (12:31)
[2025-01-24] MEDS: KCL 20 MEQ/SW 100 ML 100 ML 50 MEQ IVPB (12:43)
--- NOTE | 2025-01-24 13:22 | PCCARD ---
Patient is on target temperature management,Echo will be obtain once patient is rewarmed, Per: Dr. Hobson
[2025-01-24] MEDS: KCL 40 MEQ/WATER 100 ML 100 ML 25 ML IVPB (14:32)
[2025-01-24] MEDS: CISATRACURIUM BESYLATE 200 MG in SODIUM CHLORIDE 0.9% IV 80 ML 8.98 ML IV CONT (16:14)
--- NOTE | 2025-01-24 17:38 | P.CONINF_ITS ---
Assessment and Plan Assessment and plan (1) Pneumonia: Code(s): J18.9 - Pneumonia, unspecified organism Status: Acute Assessment and Plan: ASSESSMENT: 1. pneumonia--CAP/aspiration?; MRSA nares neg 2. Vfib cardiac arrest 3. acute respiratory failure; s/p intubation 4. Afib on amiodarone 5. CAD--to labor relations or personnel negotiator tomorrow 6. HTN, HL 7. morbid obesity 8. right wrist fracture with ecchymoses; after fall, possibly superinfected RECOMMENDATIONS: -agree with vanco and zosyn for now -legionella and strep ags -f/u on sputum and blood cxs d/w pharmacy staff, nursing staff and prior authorization technician Pt was seen via video telehealth consultation with the assistance of staff. Chart, data and patient info reviewed. Patient was located at [facility] while I was in my [place] office. HPI Data of Consult Date/Time: 01/24/25 17:38 Requesting Physician: Josh chavez Oca, MD Primary Care Provider: Mohit Kat MD Consult Narrative Reason for consult: pneumonia Narrative: Naif Hale is a 79 year old male with pmhx/o CAD, morbid obesity, HTN, HL, Afib, s/p recent fall with right wrist fracture, presented to hospital with dizziness. Had Vfib cardiac arrest, intubated. Now in ICU. CT with pneumonia. On vanco/zosyn. At my visit today, pt was paralyzed on vent. Lidocaine to be started for arrhythmia. Plan is for labor relations or personnel negotiator tomorrow. No pressors current. Not a lot of secretions per nursing staff. On the cooling protocol. [facility] Past Medical History Medical History (Updated 01/24/25 @ 17:47 by Kayla Rangel MD) Chronic otitis media of left ear with effusion Retraction pocket of tympanic membrane Acute otitis media of left ear with perforated tympanic membrane Chronic otitis media of right ear with effusion Chronic otitis media of both ears Rowell's palsy Diverticulitis Morbid obesity with BMI of 40.0-44.9, adult Folate deficiency anemia Level normal at 16.2 with hemoglobin 15.7 on 06/10/2024. Encounter for prostate cancer screening PSA 1.53n 06/10/24. 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 APAP at 5-16 cm of water pressure 06/04/2020 Abnormal fasting glucose (04/03/20) Fasting glucose 105, hemoglobin A1c 5.9 with microalbumin ratio of 6 with GFR 87 on 06/10/2024. BMI 37.0-37.9, adult Chronic anxiety Chronic depression Eczema Vitamin B12 deficiency anemia Level normal at 1457 with hemoglobin 15.7 on 06/10/2024. Vitamin D deficiency, unspecified Level normal at 36 on 06/10/2024. Hypogonadism male Chronic sinusitis Chronic serous otitis media of right ear Bilateral hearing loss Chronic bilateral low back pain with right-sided sciatica Surgical History Surgical History (Updated 01/23/25 @ 21:05 by Alla Porter APRN) H/O cardiac catheterization History of tonsillectomy History of radiofrequency ablation procedure for cardiac arrhythmia A flutter ablation, [facility] Status post cataract extraction of both eyes with insertion of intraocular lens History of cardiac radiofrequency ablation 5 years ago for AFib History of bowel resection 19 years old Family History Family History Mother Patient's mother is , Onset Age: 92 Acute myocardial infarction Skin cancer Father Family history of cardiovascular disease, Onset Age: 57 Acute myocardial infarction Social History Social History (Updated 01/23/25 @ 20:58 by Alla Porter APRN) Social History: He drinks 2-3 bottles of wine a night. No drug use except occasional marijuana use. Quit tobacco at age 28 after smoking 2 packs a day for 10 years. He lives alone. He is but it sounds like he still is in contact with his ex- quite frequently lives in [facility]. He has 2 step children. He has 1 son who is still living and a daughter who of alcohol and drug use. Code status: full code Surrogate decision maker for healthcare: Juan Pablo (son) Smoking packs per day: 2 Smoking cigarettes per day: 40.0 Years smoked: 11 Smoking pack-years: 22.00 Smoking status: Former smoker Tobacco type: cigarettes and cigars Alcohol intake: current Drinks per week: 70 Alcohol use details: beer or wine Varies, sometimes has a bottle of wine with his meal daily Substance use: former Substance use type: marijuana Spiritual care concerns: No Meds Home Medications and Allergies Home Medications ?Medication ?Instructions ?Recorded ?Confirmed ?Type cholecalciferol (vitamin D3) 125 5,000 unit PO DAILY 0 04/04/19 01/24/25 History mcg (5,000 unit) tablet cyanocobalamin (vitamin B-12) 1,000 mcg PO DAILY 10/2801/24/25 History 1,000 mcg tablet apixaban 5 mg tablet (Eliquis) 5 mg PO BID #60 tabs 01/24/25 Rx atorvastatin 80 mg tablet 80 mg PO QHS #90 tabs 01/24/25 Rx fexofenadine 180 mg tablet 180 mg PO DAILY chronic se asonal 05/12/24 01/24/25 Rx (Aliza Allergy) allergic rhinitis #30 tabs amiodarone 100 mg tablet 100 mg PO DAILY #90 tabs 01/24/25 Rx carvedilol 6.25 mg tablet 6.25 mg PO Q12H #180 tabs 01/24/25 Rx escitalopram oxalate 20 mg tablet 20 mg PO DAILY #90 t abs 06/21/24 01/24/25 Rx (Lexapro) irbesartan 150 mg tablet 150 mg PO DAILY #90 tabs 01/24/25 Rx Allergies Allergy/AdvReac Type Severity Reaction Status Date / Time hydrochlorothiazide Allergy Intermediate Unknown Verified 01/24/25 00:48 lisinopril Allergy Intermediate Unknown Verified 01/24/25 00:48 Vital Signs Vital Signs - 24 hr 01/23/25 17:41 01/23/25 17:44 01/23/25 17:45 Temperature 99.5 F 99.5 F 99.5 F Pulse Rate 92 94 91 Respiratory Rate 18 18 18 Blood Pressure 168/91 H 176/112 H Pulse Oximetry 96 96 96 Oxygen Delivery Fraction of Inspired Oxygen 01/23/25 17:46 01/23/25 17:50 01/23/25 18:41 Temperature 99.5 F 99.4 F 98.8 F Pulse Rate 91 90 Respiratory Rate 18 18 Blood Pressure 166/119 H 173/88 H Pulse Oximetry 96 95 Oxygen Delivery Fraction of Inspired Oxygen 01/23/25 18:45 01/23/25 18:46 01/23/25 18:47 Temperature 98.8 F 98.8 F 98.8 F Pulse Rate 87 86 85 Respiratory Rate 24 H 23 H 24 H Blood Pressure 157/99 H 146/113 H Pulse Oximetry 98 98 97 Oxygen Delivery Fraction of Inspired Oxygen 01/23/25 18:49 01/23/25 18:49 01/23/25 18:53 Temperature 98.7 F 98.8 F Pulse Rate 84 87 85 Respiratory Rate 25 H 27 H Blood Pressure 153/115 H 147/78 H Pulse Oximetry 98 97 100 Oxygen Delivery Mechanical Ventilation Fraction of Inspired Oxygen 100 01/23/25 18:56 01/23/25 18:56 01/23/25 19:00 Temperature 98.8 F Pulse Rate 85 83 84 Respiratory Rate 22 H 24 H 20 Blood Pressure 145/92 H Pulse Oximetry 99 Oxygen Delivery Fraction of Inspired Oxygen 01/23/25 19:00 01/23/25 19:08 01/23/25 19:10 Temperature 98.8 F 98.8 F 98.8 F Pulse Rate 84 79 79 Respiratory Rate 23 H 22 H 22 H Blood Pressure 96/72 L 101/74 Pulse Oximetry 97 99 Oxygen Delivery Fraction of Inspired Oxygen 01/23/25 19:13 01/23/25 19:15 01/23/25 19:16 Temperature 98.9 F 98.8 F 98.8 F Pulse Rate 79 83 79 Respiratory Rate 23 H 22 H 21 H Blood Pressure 113/82 130/84 Pulse Oximetry 98 99 99 Oxygen Delivery Fraction of Inspired Oxygen 01/23/25 19:19 01/23/25 19:22 01/23/25 19:25 Temperature 98.8 F 98.8 F 98.8 F Pulse Rate 81 78 76 Respiratory Rate 23 H 23 H 21 H Blood Pressure 117/71 119/87 115/75 Pulse Oximetry 99 99 97 Oxygen Delivery Fraction of Inspired Oxygen 01/23/25 19:45 01/23/25 20:25 01/23/25 20:30 Temperature Pulse Rate 76 98 102 H Respiratory Rate 18 24 H 23 H Blood Pressure 126/88 Pulse Oximetry 99 100 Oxygen Delivery Mechanical Ventilation Fraction of Inspired Oxygen 100 01/23/25 20:30 01/23/25 21:00 01/23/25 21:00 Temperature 99.9 F H Pulse Rate 102 H 97 Respiratory Rate 20 Blood Pressure 179/114 H Pulse Oximetry 100 100 100 Oxygen Delivery Mechanical Ventilation Mechanical Ventilation Fraction of Inspired Oxygen 100 100 01/23/25 21:52 01/23/25 22:00 01/23/25 22:00 Temperature 100.6 F H 100.6 F H Pulse Rate 95 95 95 Respiratory Rate 27 H 26 H 26 H Blood Pressure 145/107 H 145/107 H Pulse Oximetry 100 100 Oxygen Delivery Fraction of Inspired Oxygen 01/23/25 22:00 01/23/25 22:54 01/23/25 23:00 Temperature 100.8 F H Pulse Rate 95 86 84 Respiratory Rate 20 Blood Pressure 106/76 122/93 H Pulse Oximetry 100 Oxygen Delivery Fraction of Inspired Oxygen 01/23/25 23:00 01/23/25 23:32 01/23/25 23:46 Temperature 100.8 F H Pulse Rate 84 75 79 Respiratory Rate 20 21 H Blood Pressure 122/93 H 115/86 Pulse Oximetry 100 100 Oxygen Delivery Mechanical Ventilation Fraction of Inspired Oxygen 60 01/23/25 23:51 01/24/25 00:00 01/24/25 00:00 Temperature 100.8 F H 100.8 F H Pulse Rate 76 78 78 Respiratory Rate 22 H 20 20 Blood Pressure 117/89 117/89 Pulse Oximetry 100 100 Oxygen Delivery Fraction of Inspired Oxygen 01/24/25 00:00 01/24/25 00:00 01/24/25 00:00 Temperature Pulse Rate 76 78 78 Respiratory Rate 20 Blood Pressure 117/89 Pulse Oximetry 100 Oxygen Delivery Mechanical Ventilation Fraction of Inspired Oxygen 60 01/24/25 00:00 01/24/25 00:01 01/24/25 00:03 Temperature Pulse Rate 78 77 78 Respiratory Rate 20 22 H 20 Blood Pressure 117/89 Pulse Oximetry Oxygen Delivery Fraction of Inspired Oxygen 01/24/25 00:03 01/24/25 00:16 01/24/25 01:00 Temperature Pulse Rate 78 75 67 Respiratory Rate 20 21 H 18 Blood Pressure 107/81 94/69 L Pulse Oximetry Oxygen Delivery Fraction of Inspired Oxygen 01/24/25 01:00 01/24/25 01:00 01/24/25 01:17 Temperature 100.4 F H 100.4 F H Pulse Rate 67 67 64 Respiratory Rate 18 18 18 Blood Pressure 94/69 L 94/69 L Pulse Oximetry 100 100 Oxygen Delivery Fraction of Inspired Oxygen 01/24/25 01:50 01/24/25 01:56 01/24/25 02:00 Temperature 100.1 F H Pulse Rate 62 62 61 Respiratory Rate 18 18 Blood Pressure 101/76 101/72 Pulse Oximetry 100 100 Oxygen Delivery Mechanical Ventilation Fraction of Inspired Oxygen 60 01/24/25 02:00 01/24/25 02:00 01/24/25 02:00 Temperature 100.1 F H Pulse Rate 61 61 61 Respiratory Rate 18 18 Blood Pressure 101/72 101/72 Pulse Oximetry 100 Oxygen Delivery Fraction of Inspired Oxygen 01/24/25 02:00 01/24/25 02:00 01/24/25 02:00 Temperature Pulse Rate 61 61 61 Respiratory Rate 18 18 Blood Pressure 101/72 Pulse Oximetry Oxygen Delivery Fraction of Inspired Oxygen 01/24/25 03:00 01/24/25 03:00 01/24/25 04:00 Temperature 99.6 F 99.6 F 99.1 F Pulse Rate 60 60 58 L Respiratory Rate 18 18 18 Blood Pressure 118/81 118/81 117/85 Pulse Oximetry 100 100 100 Oxygen Delivery Fraction of Inspired Oxygen 01/24/25 04:00 01/24/25 04:00 01/24/25 04:00 Temperature 99.1 F Pulse Rate 58 L 58 L Respiratory Rate 18 18 Blood Pressure 117/85 117/85 Pulse Oximetry 100 Oxygen Delivery Fraction of Inspired Oxygen 40 01/24/25 04:00 01/24/25 04:00 01/24/25 04:00 Temperature Pulse Rate 58 L 58 L 59 L Respiratory Rate 18 18 Blood Pressure 117/85 Pulse Oximetry Oxygen Delivery Fraction of Inspired Oxygen 01/24/25 04:00 01/24/25 04:00 01/24/25 05:00 Temperature 98.7 F Pulse Rate 58 L 58 L 57 L Respiratory Rate 18 18 Blood Pressure 115/78 Pulse Oximetry 100 98 Oxygen Delivery Mechanical Ventilation Fraction of Inspired Oxygen 40 01/24/25 05:00 01/24/25 05:05 01/24/25 06:00 Temperature 98.7 F 98.4 F Pulse Rate 57 L 57 L 58 L Respiratory Rate 18 18 Blood Pressure 115/78 130/83 Pulse Oximetry 98 96 98 Oxygen Delivery Mechanical Ventilation Fraction of Inspired Oxygen 40 01/24/25 06:00 01/24/25 06:00 01/24/25 06:00 Temperature 98.4 F Pulse Rate 58 L 58 L 58 L Respiratory Rate 18 18 Blood Pressure 130/83 130/83 Pulse Oximetry 98 Oxygen Delivery Fraction of Inspired Oxygen 01/24/25 06:00 01/24/25 06:00 01/24/25 06:00 Temperature Pulse Rate 58 L 58 L 58 L Respiratory Rate 18 18 Blood Pressure 130/83 Pulse Oximetry Oxygen Delivery Fraction of Inspired Oxygen 01/24/25 06:38 01/24/25 06:38 01/24/25 07:00 Temperature 98.3 F Pulse Rate 58 L 58 L 58 L Respiratory Rate 18 18 18 Blood Pressure 149/86 H 149/86 H 143/87 H Pulse Oximetry 98 Oxygen Delivery Fraction of Inspired Oxygen 01/24/25 07:00 01/24/25 07:40 01/24/25 07:40 Temperature 98.3 F Pulse Rate 58 L 56 L 56 L Respiratory Rate 18 18 Blood Pressure 143/87 H Pulse Oximetry 98 100 Oxygen Delivery Mechanical Ventilation Fraction of Inspired Oxygen 40 01/24/25 08:00 01/24/25 08:00 01/24/25 08:00 Temperature 97.5 F L Pulse Rate 68 61 61 Respiratory Rate 18 18 Blood Pressure 166/76 H 156/96 H 156/96 H Pulse Oximetry 100 Oxygen Delivery Fraction of Inspired Oxygen 01/24/25 08:00 01/24/25 08:00 01/24/25 08:00 Temperature Pulse Rate 61 Respiratory Rate 18 Blood Pressure Pulse Oximetry 99 Oxygen Delivery Mechanical Ventilation Fraction of Inspired Oxygen 40 40 01/24/25 08:00 01/24/25 08:00 01/24/25 08:08 Temperature 97.8 F Pulse Rate 57 L 59 L 69 Respiratory Rate 18 21 H Blood Pressure 156/96 H Pulse Oximetry 99 Oxygen Delivery Fraction of Inspired Oxygen 01/24/25 08:08 01/24/25 09:00 01/24/25 09:00 Temperature 96 F L 96.7 F L Pulse Rate 69 65 65 Respiratory Rate 21 H 18 18 Blood Pressure 190/82 H 186/76 H Pulse Oximetry 100 100 Oxygen Delivery Fraction of Inspired Oxygen 01/24/25 10:00 01/24/25 10:00 01/24/25 10:00 Temperature 94.9 F L 94.9 F L Pulse Rate 68 68 68 Respiratory Rate 18 18 Blood Pressure 179/74 H 179/74 H Pulse Oximetry 88 L 88 L Oxygen Delivery Fraction of Inspired Oxygen 01/24/25 10:00 01/24/25 10:00 01/24/25 10:00 Temperature Pulse Rate 68 68 68 Respiratory Rate 18 18 Blood Pressure 179/74 H Pulse Oximetry Oxygen Delivery Fraction of Inspired Oxygen 01/24/25 10:00 01/24/25 10:27 01/24/25 10:27 Temperature Pulse Rate 68 69 69 Respiratory Rate 18 Blood Pressure 179/74 H 199/82 H 199/82 H Pulse Oximetry Oxygen Delivery Fraction of Inspired Oxygen 01/24/25 11:00 01/24/25 11:00 01/24/25 11:28 Temperature 93 F L 92.9 F L Pulse Rate 36 L 36 L 36 L Respiratory Rate 18 18 Blood Pressure 182/75 H 182/75 H 182/75 H Pulse Oximetry 91 91 Oxygen Delivery Fraction of Inspired Oxygen 01/24/25 11:29 01/24/25 11:52 01/24/25 12:00 Temperature Pulse Rate 62 29 L Respiratory Rate 18 Blood Pressure Pulse Oximetry 92 Oxygen Delivery Mechanical Ventilation Mechanical Ventilation Fraction of Inspired Oxygen 50 60 01/24/25 12:00 01/24/25 12:00 01/24/25 12:00 Temperature 92.2 F L 92.2 F L Pulse Rate 36 L 36 L Respiratory Rate 18 18 Blood Pressure 182/75 H 182/76 H Pulse Oximetry 95 95 95 Oxygen Delivery Mechanical Ventilation Fraction of Inspired Oxygen 60 01/24/25 12:00 01/24/25 12:00 01/24/25 12:00 Temperature Pulse Rate 36 L 36 L Respiratory Rate 18 18 Blood Pressure 182/75 H Pulse Oximetry Oxygen Delivery Fraction of Inspired Oxygen 60 01/24/25 12:00 01/24/25 12:25 01/24/25 12:26 Temperature Pulse Rate 36 L 29 L 29 L Respiratory Rate 18 Blood Pressure 158/81 H Pulse Oximetry Oxygen Delivery Fraction of Inspired Oxygen 01/24/25 12:35 01/24/25 13:00 01/24/25 13:00 Temperature 91.3 F L 90.5 F L 90.5 F L Pulse Rate 31 L 40 L 40 L Respiratory Rate 18 18 18 Blood Pressure 186/85 H 199/89 H 199/89 H Pulse Oximetry 92 95 95 Oxygen Delivery Fraction of Inspired Oxygen 01/24/25 14:00 01/24/25 14:00 01/24/25 14:00 Temperature 89.8 F L Pulse Rate 61 61 61 Respiratory Rate 18 18 18 Blood Pressure 202/107 H Pulse Oximetry 96 Oxygen Delivery Fraction of Inspired Oxygen 01/24/25 14:00 01/24/25 14:00 01/24/25 14:00 Temperature 89.8 F L Pulse Rate 61 61 36 L Respiratory Rate 18 18 Blood Pressure 202/107 H 202/107 H Pulse Oximetry 96 Oxygen Delivery Fraction of Inspired Oxygen 01/24/25 14:03 01/24/25 14:03 01/24/25 14:12 Temperature Pulse Rate 64 64 64 Respiratory Rate 18 Blood Pressure 195/106 H Pulse Oximetry 96 Oxygen Delivery Mechanical Ventilation Fraction of Inspired Oxygen 60 01/24/25 14:25 01/24/25 15:00 01/24/25 15:00 Temperature 90 F L 90 F L Pulse Rate 68 68 Respiratory Rate 18 18 Blood Pressure 188/116 H 165/96 H 165/96 H Pulse Oximetry 94 96 Oxygen Delivery Fraction of Inspired Oxygen 01/24/25 16:00 01/24/25 16:00 01/24/25 16:00 Temperature 90.4 F L 90.4 F L Pulse Rate 62 62 Respiratory Rate 18 18 Blood Pressure 150/92 H 150/92 H Pulse Oximetry 97 97 94 Oxygen Delivery Mechanical Ventilation Fraction of Inspired Oxygen 60 01/24/25 16:00 01/24/25 16:00 01/24/25 16:00 Temperature Pulse Rate 66 65 Respiratory Rate Blood Pressure 150/92 H Pulse Oximetry Oxygen Delivery Fraction of Inspired Oxygen 60 01/24/25 16:00 01/24/25 16:00 01/24/25 16:14 Temperature Pulse Rate 65 65 62 Respiratory Rate 18 18 18 Blood Pressure 150/92 H Pulse Oximetry Oxygen Delivery Fraction of Inspired Oxygen 01/24/25 16:14 01/24/25 17:00 01/24/25 17:00 Temperature 91 F L 91 F L Pulse Rate 62 56 L 56 L Respiratory Rate 18 18 18 Blood Pressure 150/92 H 130/77 130/77 Pulse Oximetry 96 96 Oxygen Delivery Fraction of Inspired Oxygen Exam 2 Narrative: on vent; FiO2=60 and PEEP=8 +ETT +OGT sedated BS coarse/wheezing abd soft +femoral line right hand ecchymoses Results Labs 01/24/25 11:17 01/24/25 11:17 Labs: Short CBC 01/23/25 01/24/25 01/24/25 Range/Units 22:51 05:41 11:17 WBC 20.8 H 14.6 H 12.8 H (4.5-10.0) K/mm3 Hgb 16.4 15.4 15.9 (14.0-18.0) g/dL Hct 48.5 46.1 47.4 (42.0-52.0) % Plt Count 299 243 221 (150-375) k/mm3 BMP 01/24/25 01/24/25 05:41 11:17 Sodium 136 L 135 L Potassium 3.5 3.3 L Chloride 101 101 Carbon Dioxide 27 26 BUN 14 D 12 Creatinine 1.28 1.07 Glucose 164 H 172 H Calcium 8.3 L 8.3 L Cardiac Enzymes 01/23/25 01/24/25 01/24/25 Range/Units 22:51 07:51 11:17 Total Creatine Kinase 359 H (55-170) U/L Troponin I 8.530 H* D 3.310 H* (0.000-0.034) ng/mL Liver Function 01/24/25 Range/Units 05:41 Total Bilirubin 0.8 (0.2-1.3) mg/dL AST 97 H (17-59) U/L ALT 69 H (6-50) U/L Alkaline Phosphatase 70 (38-126) U/L Albumin 3.7 (3.5-5.1) g/dL Urine 01/24/25 Range/Units 08:04 Urine Color Yellow (Yellow) Urine Appearance Turbid H (Clear) Urine pH 5.0 (5.0-9.0) Ur Specific [place] 1.028 (1.001-1.035) Urine Protein 2+ H (Negative) mg/dL Urine Glucose (UA) Negative (Negative) mg/dL
--- NOTE | 2025-01-24 18:13 | PM.IMPN2 ---
Assessment and Plan Assessment and Plan (1) Cardiac arrest with ventricular fibrillation: Code(s): I46.9 - Cardiac arrest, cause unspecified; I49.01 - Ventricular fibrillation Status: Acute Assessment and Plan: -the patient came into the emergency room today complaining of feeling dizzy. The patient was found to be unresponsive in the ER waiting room. The patient was immediately taken back to in ER bed. CPR was initiated at that time. The patient was given a dose of epinephrine and was found to be in fine VFib. The patient was shocked and amiodarone was started. Patient had almost immediate Rosc. Patient admitted to the ICU for further treatment Initiated on hypothermia protocol. Cardiology consulted and planned for cardiac catheterization 01/25/2025 -the patient was started on Nimbex drip, fentanyl drip, and propofol. Continue to monitor daily lipids. Continue heparin drip -troponin was elevated to 0.041 however the patient has a chronic troponin leak. (2) Sepsis: Code(s): A41.9 - Sepsis, unspecified organism Status: Acute Assessment and Plan: -CT scan showsChest/Abdomen/Pelvis CT 01/23/25 19:16 IMPRESSION: Bilateral lower lobe consolidation may represent pneumonia. No acute abdominal or pelvic findings. -infectious disease consulted WBC 20 K -lactic acid initially was 11.1. It is now 4.1. Continue to monitor daily. -the patient was given a dose of Rocephin in the emergency room. -patient was started on Zosyn and vancomycin. -blood and sputum cultures pending. Infectious disease on both (3) Essential hypertension: Code(s): I10 - Essential (primary) hypertension Status: Acute Assessment and Plan: -patient's blood pressure soft and he is currently on an amiodarone drip. (4) Alcohol abuse: Code(s): F10.10 - Alcohol abuse, uncomplicated Status: Acute Assessment and Plan: -the patient is on a paralytic and sedated at this time. (5) Coronary artery disease involving jamul coronary artery of jamul heart without angina pectoris: Code(s): I25.10 - Atherosclerotic heart disease of jamul coronary artery without angina pectoris Status: Acute Assessment and Plan: -cardiology has been consulted. -the patient is on heparin drip. (6) History of radiofrequency ablation procedure for cardiac arrhythmia: Code(s): Z98.890 - Other specified postprocedural states Status: Acute Assessment and Plan: -the patient had been on apixaban previously. He had been on Coreg as well. He had been on p.o. amiodarone. Now he is on a amiodarone drip. Plan VFib arrest status post shock and CPR with [place] Non-STEMI with troponin [id number] Acute on chronic diastolic heart failure Pneumonia Chronic AFib status post ablation on chronic anticoagulation Acute respiratory failure requiring intubation sedation Hypertension Alcohol use Subjective Date/time seen: 01/24/25 18:13 Interval history: Patient intubated and sedated. Planned cardiac catheterization in a.m.. Review of Systems Review of Systems: ROS unobtainable: Yes unobtainable due to mental status Exam Narrative: General: Intubated, sedated and on Nimbex infusion HEENT:? Pupils equal and reactive, sclera is clear cough ETT in place Neck:? Supple Respiratory:? Coarse breath sounds bilaterally, decreased at bases, no wheeze Cardiac:? Irregularly irregular rhythm Abdomen:? Soft, nontender, nondistended, hypoactive bowel sound Extremities:? Trace edema bilaterally, palpable pulses. Blistering noted on the right hand Neuro:? Patient is intubated, sedated, on Nimbex infusion Skin:? No lesions noted Psych:? Unable to assess at this time Objective Data Vital Signs Vital Signs: Vital Signs - 24 hr 01/23/25 18:41 01/23/25 18:45 01/23/25 18:46 Temperature 98.8 F 98.8 F 98.8 F Pulse Rate 87 86 Respiratory Rate 24 H 23 H Blood Pressure 157/99 H 146/113 H Pulse Oximetry 98 98 Oxygen Delivery Fraction of Inspired Oxygen 01/23/25 18:47 01/23/25 18:49 01/23/25 18:49 Temperature 98.8 F 98.7 F Pulse Rate 85 84 87 Respiratory Rate 24 H 25 H Blood Pressure 153/115 H Pulse Oximetry 97 98 97 Oxygen Delivery Mechanical Ventilation Fraction of Inspired Oxygen 100 01/23/25 18:53 01/23/25 18:56 01/23/25 18:56 Temperature 98.8 F 98.8 F Pulse Rate 85 85 83 Respiratory Rate 27 H 22 H 24 H Blood Pressure 147/78 H 145/92 H Pulse Oximetry 100 99 Oxygen Delivery Fraction of Inspired Oxygen 01/23/25 19:00 01/23/25 19:00 01/23/25 19:08 Temperature 98.8 F 98.8 F Pulse Rate 84 84 79 Respiratory Rate 20 23 H 22 H Blood Pressure 96/72 L Pulse Oximetry 97 99 Oxygen Delivery Fraction of Inspired Oxygen 01/23/25 19:10 01/23/25 19:13 01/23/25 19:15 Temperature 98.8 F 98.9 F 98.8 F Pulse Rate 79 79 83 Respiratory Rate 22 H 23 H 22 H Blood Pressure 101/74 113/82 Pulse Oximetry 98 99 Oxygen Delivery Fraction of Inspired Oxygen 01/23/25 19:16 01/23/25 19:19 01/23/25 19:22 Temperature 98.8 F 98.8 F 98.8 F Pulse Rate 79 81 78 Respiratory Rate 21 H 23 H 23 H Blood Pressure 130/84 117/71 119/87 Pulse Oximetry 99 99 99 Oxygen Delivery Fraction of Inspired Oxygen 01/23/25 19:25 01/23/25 19:45 01/23/25 20:25 Temperature 98.8 F Pulse Rate 76 76 98 Respiratory Rate 21 H 18 24 H Blood Pressure 115/75 126/88 Pulse Oximetry 97 99 Oxygen Delivery Fraction of Inspired Oxygen 01/23/25 20:30 01/23/25 20:30 01/23/25 21:00 Temperature Pulse Rate 102 H 102 H Respiratory Rate 23 H Blood Pressure Pulse Oximetry 100 100 100 Oxygen Delivery Mechanical Ventilation Mechanical Ventilation Mechanical Ventilation Fraction of Inspired Oxygen 100 100 100 01/23/25 21:00 01/23/25 21:52 01/23/25 22:00 Temperature 99.9 F H 100.6 F H Pulse Rate 97 95 95 Respiratory Rate 20 27 H 26 H Blood Pressure 179/114 H 145/107 H Pulse Oximetry 100 100 Oxygen Delivery Fraction of Inspired Oxygen 01/23/25 22:00 01/23/25 22:00 01/23/25 22:54 Temperature 100.6 F H Pulse Rate 95 95 86 Respiratory Rate 26 H Blood Pressure 145/107 H 106/76 Pulse Oximetry 100 Oxygen Delivery Fraction of Inspired Oxygen 01/23/25 23:00 01/23/25 23:00 01/23/25 23:32 Temperature 100.8 F H 100.8 F H Pulse Rate 84 84 75 Respiratory Rate 20 20 Blood Pressure 122/93 H 122/93 H Pulse Oximetry 100 100 100 Oxygen Delivery Mechanical Ventilation Fraction of Inspired Oxygen 60 01/23/25 23:46 01/23/25 23:51 01/24/25 00:00 Temperature 100.8 F H Pulse Rate 79 76 78 Respiratory Rate 21 H 22 H 20 Blood Pressure 115/86 117/89 Pulse Oximetry 100 Oxygen Delivery Fraction of Inspired Oxygen 01/24/25 00:00 01/24/25 00:00 01/24/25 00:00 Temperature 100.8 F H Pulse Rate 78 76 78 Respiratory Rate 20 20 Blood Pressure 117/89 Pulse Oximetry 100 100 Oxygen Delivery Mechanical Ventilation Fraction of Inspired Oxygen 60 01/24/25 00:00 01/24/25 00:00 01/24/25 00:01 Temperature Pulse Rate 78 78 77 Respiratory Rate 20 22 H Blood Pressure 117/89 117/89 Pulse Oximetry Oxygen Delivery Fraction of Inspired Oxygen 01/24/25 00:03 01/24/25 00:03 01/24/25 00:16 Temperature Pulse Rate 78 78 75 Respiratory Rate 20 20 21 H Blood Pressure 107/81 Pulse Oximetry Oxygen Delivery Fraction of Inspired Oxygen 01/24/25 01:00 01/24/25 01:00 01/24/25 01:00 Temperature 100.4 F H 100.4 F H Pulse Rate 67 67 67 Respiratory Rate 18 18 18 Blood Pressure 94/69 L 94/69 L 94/69 L Pulse Oximetry 100 100 Oxygen Delivery Fraction of Inspired Oxygen 01/24/25 01:17 01/24/25 01:50 01/24/25 01:56 Temperature Pulse Rate 64 62 62 Respiratory Rate 18 18 Blood Pressure 101/76 Pulse Oximetry 100 Oxygen Delivery Mechanical Ventilation Fraction of Inspired Oxygen 60 01/24/25 02:00 01/24/25 02:00 01/24/25 02:00 Temperature 100.1 F H 100.1 F H Pulse Rate 61 61 61 Respiratory Rate 18 18 Blood Pressure 101/72 101/72 Pulse Oximetry 100 100 Oxygen Delivery Fraction of Inspired Oxygen 01/24/25 02:00 01/24/25 02:00 01/24/25 02:00 Temperature Pulse Rate 61 61 61 Respiratory Rate 18 18 Blood Pressure 101/72 101/72 Pulse Oximetry Oxygen Delivery Fraction of Inspired Oxygen 01/24/25 02:00 01/24/25 03:00 01/24/25 03:00 Temperature 99.6 F 99.6 F Pulse Rate 61 60 60 Respiratory Rate 18 18 18 Blood Pressure 118/81 118/81 Pulse Oximetry 100 100 Oxygen Delivery Fraction of Inspired Oxygen 01/24/25 04:00 01/24/25 04:00 01/24/25 04:00 Temperature 99.1 F 99.1 F Pulse Rate 58 L 58 L Respiratory Rate 18 18 Blood Pressure 117/85 117/85 Pulse Oximetry 100 100 Oxygen Delivery Fraction of Inspired Oxygen 40 01/24/25 04:00 01/24/25 04:00 01/24/25 04:00 Temperature Pulse Rate 58 L 58 L 58 L Respiratory Rate 18 18 Blood Pressure 117/85 117/85 Pulse Oximetry Oxygen Delivery Fraction of Inspired Oxygen 01/24/25 04:00 01/24/25 04:00 01/24/25 04:00 Temperature Pulse Rate 59 L 58 L 58 L Respiratory Rate 18 18 Blood Pressure Pulse Oximetry 100 Oxygen Delivery Mechanical Ventilation Fraction of Inspired Oxygen 40 01/24/25 05:00 01/24/25 05:00 01/24/25 05:05 Temperature 98.7 F 98.7 F Pulse Rate 57 L 57 L 57 L Respiratory Rate 18 18 Blood Pressure 115/78 115/78 Pulse Oximetry 98 98 96 Oxygen Delivery Mechanical Ventilation Fraction of Inspired Oxygen 40 01/24/25 06:00 01/24/25 06:00 01/24/25 06:00 Temperature 98.4 F 98.4 F Pulse Rate 58 L 58 L 58 L Respiratory Rate 18 18 Blood Pressure 130/83 130/83 Pulse Oximetry 98 98 Oxygen Delivery Fraction of Inspired Oxygen 01/24/25 06:00 01/24/25 06:00 01/24/25 06:00 Temperature Pulse Rate 58 L 58 L 58 L Respiratory Rate 18 18 Blood Pressure 130/83 130/83 Pulse Oximetry Oxygen Delivery Fraction of Inspired Oxygen 01/24/25 06:00 01/24/25 06:38 01/24/25 06:38 Temperature Pulse Rate 58 L 58 L 58 L Respiratory Rate 18 18 18 Blood Pressure 149/86 H 149/86 H Pulse Oximetry Oxygen Delivery Fraction of Inspired Oxygen 01/24/25 07:00 01/24/25 07:00 01/24/25 07:40 Temperature 98.3 F 98.3 F Pulse Rate 58 L 58 L 56 L Respiratory Rate 18 18 Blood Pressure 143/87 H 143/87 H Pulse Oximetry 98 98 100 Oxygen Delivery Mechanical Ventilation Fraction of Inspired Oxygen 40 01/24/25 07:40 01/24/25 08:00 01/24/25 08:00 Temperature 97.5 F L Pulse Rate 56 L 68 61 Respiratory Rate 18 18 Blood Pressure 166/76 H 156/96 H Pulse Oximetry 100 Oxygen Delivery Fraction of Inspired Oxygen 01/24/25 08:00 01/24/25 08:00 01/24/25 08:00 Temperature Pulse Rate 61 61 Respiratory Rate 18 18 Blood Pressure 156/96 H Pulse Oximetry 99 Oxygen Delivery Mechanical Ventilation Fraction of Inspired Oxygen 40 01/24/25 08:00 01/24/25 08:00 01/24/25 08:00 Temperature 97.8 F Pulse Rate 57 L 59 L Respiratory Rate 18 Blood Pressure 156/96 H Pulse Oximetry 99 Oxygen Delivery Fraction of Inspired Oxygen 40 01/24/25 08:08 01/24/25 08:08 01/24/25 09:00 Temperature 96 F L Pulse Rate 69 69 65 Respiratory Rate 21 H 21 H 18 Blood Pressure 190/82 H Pulse Oximetry 100 Oxygen Delivery Fraction of Inspired Oxygen 01/24/25 09:00 01/24/25 10:00 01/24/25 10:00 Temperature 96.7 F L 94.9 F L 94.9 F L Pulse Rate 65 68 68 Respiratory Rate 18 18 18 Blood Pressure 186/76 H 179/74 H 179/74 H Pulse Oximetry 100 88 L 88 L Oxygen Delivery Fraction of Inspired Oxygen 01/24/25 10:00 01/24/25 10:00 01/24/25 10:00 Temperature Pulse Rate 68 68 68 Respiratory Rate 18 Blood Pressure 179/74 H Pulse Oximetry Oxygen Delivery Fraction of Inspired Oxygen 01/24/25 10:00 01/24/25 10:00 01/24/25 10:27 Temperature Pulse Rate 68 68 69 Respiratory Rate 18 18 Blood Pressure 179/74 H 199/82 H Pulse Oximetry Oxygen Delivery Fraction of Inspired Oxygen 01/24/25 10:27 01/24/25 11:00 01/24/25 11:00 Temperature 93 F L 92.9 F L Pulse Rate 69 36 L 36 L Respiratory Rate 18 18 Blood Pressure 199/82 H 182/75 H 182/75 H Pulse Oximetry 91 91 Oxygen Delivery Fraction of Inspired Oxygen 01/24/25 11:28 01/24/25 11:29 01/24/25 11:52 Temperature Pulse Rate 36 L 62 Respiratory Rate Blood Pressure 182/75 H Pulse Oximetry 92 Oxygen Delivery Mechanical Ventilation Mechanical Ventilation Fraction of Inspired Oxygen 50 60 01/24/25 12:00 01/24/25 12:00 01/24/25 12:00 Temperature 92.2 F L 92.2 F L Pulse Rate 29 L 36 L 36 L Respiratory Rate 18 18 18 Blood Pressure 182/75 H 182/76 H Pulse Oximetry 95 95 Oxygen Delivery Fraction of Inspired Oxygen 01/24/25 12:00 01/24/25 12:00 01/24/25 12:00 Temperature Pulse Rate 36 L Respiratory Rate 18 Blood Pressure Pulse Oximetry 95 Oxygen Delivery Mechanical Ventilation Fraction of Inspired Oxygen 60 60 01/24/25 12:00 01/24/25 12:00 01/24/25 12:25 Temperature Pulse Rate 36 L 36 L 29 L Respiratory Rate 18 18 Blood Pressure 182/75 H Pulse Oximetry Oxygen Delivery Fraction of Inspired Oxygen 01/24/25 12:26 01/24/25 12:35 01/24/25 13:00 Temperature 91.3 F L 90.5 F L Pulse Rate 29 L 31 L 40 L Respiratory Rate 18 18 Blood Pressure 158/81 H 186/85 H 199/89 H Pulse Oximetry 92 95 Oxygen Delivery Fraction of Inspired Oxygen 01/24/25 13:00 01/24/25 14:00 01/24/25 14:00 Temperature 90.5 F L Pulse Rate 40 L 61 61 Respiratory Rate 18 18 18 Blood Pressure 199/89 H Pulse Oximetry 95 Oxygen Delivery Fraction of Inspired Oxygen 01/24/25 14:00 01/24/25 14:00 01/24/25 14:00 Temperature 89.8 F L 89.8 F L Pulse Rate 61 61 61 Respiratory Rate 18 18 Blood Pressure 202/107 H 202/107 H Pulse Oximetry 96 96 Oxygen Delivery Fraction of Inspired Oxygen 01/24/25 14:00 01/24/25 14:03 01/24/25 14:03 Temperature Pulse Rate 36 L 64 64 Respiratory Rate 18 18 Blood Pressure 202/107 H Pulse Oximetry 96 Oxygen Delivery Mechanical Ventilation Fraction of Inspired Oxygen 60 01/24/25 14:12 01/24/25 14:25 01/24/25 15:00 Temperature 90 F L Pulse Rate 64 68 Respiratory Rate 18 Blood Pressure 195/106 H 188/116 H 165/96 H Pulse Oximetry 94 Oxygen Delivery Fraction of Inspired Oxygen 01/24/25 15:00 01/24/25 16:00 01/24/25 16:00 Temperature 90 F L 90.4 F L 90.4 F L Pulse Rate 68 62 62 Respiratory Rate 18 18 18 Blood Pressure 165/96 H 150/92 H 150/92 H Pulse Oximetry 96 97 97 Oxygen Delivery Fraction of Inspired Oxygen 01/24/25 16:00 01/24/25 16:00 01/24/25 16:00 Temperature Pulse Rate 66 Respiratory Rate Blood Pressure Pulse Oximetry 94 Oxygen Delivery Mechanical Ventilation Fraction of Inspired Oxygen 60 60 01/24/25 16:00 01/24/25 16:00 01/24/25 16:00 Temperature Pulse Rate 65 65 65 Respiratory Rate 18 18 Blood Pressure 150/92 H Pulse Oximetry Oxygen Delivery Fraction of Inspired Oxygen 01/24/25 16:14 01/24/25 16:14 01/24/25 17:00 Temperature 91 F L Pulse Rate 62 62 56 L Respiratory Rate 18 18 18 Blood Pressure 150/92 H 150/92 H 130/77 Pulse Oximetry 96 Oxygen Delivery Fraction of Inspired Oxygen 01/24/25 17:00 Temperature 91 F L Pulse Rate 56 L Respiratory Rate 18 Blood Pressure 130/77 Pulse Oximetry 96 Oxygen Delivery Fraction of Inspired Oxygen Intake/Output Intake/Output: Intake & Output 01/21/25 01/22/25 01/23/25 01/24/25 23:59 23:59 23:59 23:59 Intake Total 33.3 2403.6 Output Total 600 1145 Balance -566.7 1258.6 Meds/Results Medications: Active Medications Generic Name Dose Route Start Last Admin Trade Name Freq PRN Reason Stop Dose Admin Albuterol/Ipratropium 3 ml 01/24/25 02:00 01/24/25 14:03 Ipratropium 0.5 Mg/Albuterol Sulfate 2.5 Mg (Base) Ampul.Neb 3 Ml INHALATION 3 ml Q6HRT [facility] Administration Aspirin 81 mg 01/24/25 12:00 01/24/25 12:31 Aspirin 81 Mg Enteric Tablet PO 81 mg QAM [facility] Administration Atorvastatin Calcium 80 mg 01/24/25 21:00 Atorvastatin 40 Mg Tablet PO QHS [facility] Carvedilol 3.125 mg 01/24/25 21:00 Carvedilol 3.125 Mg Tablet PO Q12HR JOCELYNE Heparin Sodium (Porcine) 4,000 units 01/23/25 17:10 Heparin Sodium 5,000 Units/Ml Vial IV PUSH PRN PRN aPTT less than 55 seconds Heparin Sodium (Porcine) 4,000 units 01/23/25 17:10 Heparin Sodium 5,000 Units/Ml Vial IV PUSH PRN PRN aPTT 55 - 70 seconds Hydralazine HCl 10 mg 01/24/25 11:31 01/24/25 14:05 Hydralazine Hcl 20 Mg/Ml Vial IV PUSH 10 mg Q4H PRN Administration Blood Pressure - High Heparin Sodium/Dextrose 25,000 units in 250 mls @ 10 mls/hr 01/23/25 17:10 01/24/25 12:31 Heparin Sodium/D5w 100 Units/Ml IV CONT 1,000 units/hr .Q24H JOCELYNE 10 mls/hr Protocol Titration 1,000 UNITS/HR Fentanyl Citrate 2,500 mcg in 250 mls @ 2.5 mls/hr 01/23/25 21:15 01/24/25 16:00 Fentanyl 2,500 Mcg/Ns 250 Ml IV CONT 25 mcg/hr .Q72H JOCELYNE 2.5 mls/hr Protocol Titration 25 MCG/HR Piperacillin Sod/Tazobactam 50 mls @ 100 mls/hr 01/23/25 22:00 01/24/25 16:48 Sod 3.375 gm/ Sodium Chloride IVPB Infused Q6H JOCELYNE Infusion Amiodarone HCl/Dextrose 360 mg in 200 mls @ 0 mls/hr 01/23/25 22:50 01/24/25 12:26 Nexterone 360 Mg/D5w 200 Ml IV CONT Infused .Q0M JOCELYNE Infusion 0 MG/MIN Cisatracurium Besylate 200 mg/ 100 mls @ 8.976 mls/hr 01/23/25 22:50 01/24/25 16:48 Sodium Chloride IV CONT Not Given .Q11H9M JOCELYNE Protocol 2 MCG/KG/MIN Vancomycin HCl 1,500 mg in 500 mls @ 250 mls/hr 01/24/25 19:00 Vancomycin 1,500 Mg/Ns 500 Ml IVPB Q18H JOCELYNE Lactated Ringer's 1,000 mls @ 75 mls/hr 01/24/25 10:00 01/24/25 10:24 Lr - Lactated Ringers Iv IV CONT 75 mls/hr .[id number] JOCELYNE Administration Midazolam HCl 100 mg in 100 mls @ 2 mls/hr 01/24/25 12:20 01/24/25 16:00 Versed 100 Mg/Ns 100 Ml IV CONT 2 mg/hr .Q50H JOCELYNE 2 mls/hr Protocol Titration 2 MG/HR Potassium Chloride 100 mls @ 25 mls/hr 01/24/25 14:30 01/24/25 14:32 Kcl 40 Meq/Water 100 Ml IVPB 01/24/25 18:29 25 mls/hr ONCE ONE Administration Lidocaine HCl/Dextrose 2 gm in 500 mls @ 22.5 mls/hr 01/24/25 13:30 01/24/25 16:00 Lidocaine In D5w 4 Mg/Ml IV CONT 1.5 mg/min .[id number] JOCELYNE 22.5 mls/hr 1.5 MG/MIN Infusion Multi-Ingred Cream/Lotion/Oil/Oint 1 applic 01/24/25 09:00 01/24/25 08:14 Mineral Oil/White Petrolatum Ointment EACH EYE 1 applic Q12HR JOCELYNE Administration Pantoprazole Sodium 40 mg 01/24/25 09:00 01/24/25 08:14 Pantoprazole Sodium Iv 40 Mg Vial IV PUSH 40 mg DAILY JOCELYNE Administration Perflutren Lipid Microsphere 0 ml 01/24/25 11:06 Perflutren Lipid Microspheres 1.5 Ml Vial Diluted To 10 Ml Total Volume IV PUSH 01/27/25 11:06 ONCE PRN adequate visualization Protocol Sodium Chloride 10 ml 01/24/25 06:00 01/24/25 14:10 Central Line Flush IV PUSH 10 ml Q8HR JOCELYNE Administration Sodium Chloride 20 ml 01/23/25 22:48 Central Line Flush IV PUSH PRN PRN after blood draws Radiology Results: ITS Impressions Head CT 01/23/25 19:11 IMPRESSION: No acute intracranial hemorrhage or extra axial fluid collections. Bilateral mastoiditis. All CT scans at this facility are performed using low dose modulation techniques as appropriate to perform exam including the following: automated exposure control; use of iterative reconstruction technique; adjustment of the mA and/or kV according to patient size (this includes techniques or standardized protocols for targeted exams where dose is matched to indication/reason for exam). Chest/Abdomen/Pelvis CT 01/23/25 19:16 IMPRESSION: Bilateral lower lobe consolidation may represent pneumonia. No acute abdominal or pelvic findings. All CT scans at this facility are performed using low dose modulation techniques as appropriate to perform exam including the following: automated exposure control; use of iterative reconstruction technique; adjustment of the mA and/or kV according to patient size (this includes techniques or standardized protocols for targeted exams where dose is matched to indication/reason for exam). Chest X-Ray 01/24/25 06:48 Impression: 1: Interval improvement of pulmonary edema. Venous Doppler Study 01/24/25 11:45 IMPRESSION: 1. No DVT either leg. Ankle Brachial Index 01/24/25 11:52 IMPRESSION: 1. Artery pressures and the pressures at the right and left brachial, posterior tibial and dorsalis pedis arteries were unable to be obtained likely due to markedly increased pressures with right and left great toe pressures of 212 and 214 mmHg respectively. Labs Labs: Laboratory Results - last 24 hr 01/23/25 01/23/25 01/23/25 16:50 21:01 21:18 WBC RBC Hgb Hct MCV MCH MCHC RDW Plt Count MPV Immature Gran % (Auto) Neut % (Auto) Lymph % (Auto) [place] % (Auto) Eos % (Auto) Baso % (Auto) Lymph # (Auto) [place] # (Auto) Eos # (Auto) Baso # (Auto) Abs Immat Gran (auto) Absolute Neuts (auto) Absolute Nucleated RBC Nucleated RBC % PT INR APTT Puncture Site Left radial ABG pH 7.460 H ABG pCO2 29.1 L ABG pO2 419.9 H ABG PO2/FiO2 Ratio 4.20 ABG HCO3 20.2 L ABG O2 Saturation 99.9 ABG O2 Content 25.8 H ABG Base Excess -1.9 A-a Gradient 264.0 Oxyhemoglobin 99.4 Carboxyhemoglobin Methemoglobin Reduced Hemoglobin Total Hemoglobin 17.7 O2 Delivery Device Ventilator O2 Liters/Min Not Reportable Minute Volume Not Reportable Vent Rate 18 Vent Mode Cmv FiO2 100 Tidal Volume 420 PEEP 5 Peak Inspir Pressure Not Reportable Pressure Support Not Reportable Sodium Potassium Chloride Carbon Dioxide Anion Gap BUN Creatinine Estim Creat Clear Calc Estimated GFR Glucose POC Capillary Glucose Lactic Acid Calcium Phosphorus Magnesium Total Bilirubin AST ALT Alkaline Phosphatase Total Creatine Kinase Troponin I NT-Pro-B Natriuret Pep 670 H Total Protein Albumin Triglycerides 186 H Urine Color Urine Appearance Urine pH Ur Specific [place] Urine Protein Urine Glucose (UA) Urine Ketones Ur Blood (Man) Urine Nitrate Urine Bilirubin Urine Urobilinogen Add Ur Microanalysis Leukocyte Esterase Rfl Urine RBC Urine WBC Ur Squamous Epith Cells Urine Bacteria Urine Casts Nasal MRSA (PCR) Not detected Salicylates Urine Opiates Screen Urine Methadone Screen Acetaminophen Ur Barbiturates Screen Ur Phencyclidine Scrn Ur Amphetamine Screen U Benzodiazepines Scrn Urine Cocaine Screen U Cannabinoids Screen Ethyl Alcohol Influenza A (RT-PCR) Negative Influenza B (RT-PCR) Negative Legionella Source Legionella Culture Legionella Cult Status RSV (RT-PCR) Negative SARS-CoV-2 RNA (RT-PCR) Negative 01/23/25 01/23/25 01/23/25 22:37 22:51 23:57 WBC 20.8 H RBC 4.90 Hgb 16.4 Hct 48.5 MCV 99.0 MCH 33.5 MCHC 33.8 RDW 13.1 Plt Count 299 MPV 10.1 Immature Gran % (Auto) 0.9 H Neut % (Auto) 74.6 H Lymph % (Auto) 15.8 L [place] % (Auto) 8.3 Eos % (Auto) 0.1 Baso % (Auto) 0.3 Lymph # (Auto) 3.28 H [place] # (Auto) 1.7 H Eos # (Auto) 0.0 Baso # (Auto) 0.1 Abs Immat Gran (auto) 0.18 H Absolute Neuts (auto) 15.5 H Absolute Nucleated RBC 0.000 Nucleated RBC % 0.0 PT 15.5 H INR 1.2 APTT 26.9 Puncture Site ABG pH ABG pCO2 ABG pO2 ABG PO2/FiO2 Ratio ABG HCO3 ABG O2 Saturation ABG O2 Content ABG Base Excess A-a Gradient Oxyhemoglobin Carboxyhemoglobin Methemoglobin Reduced Hemoglobin Total Hemoglobin O2 Delivery Device O2 Liters/Min Minute Volume Vent Rate Vent Mode FiO2 Tidal Volume PEEP Peak Inspir Pressure Pressure Support Sodium Potassium Chloride Carbon Dioxide Anion Gap BUN Creatinine Estim Creat Clear Calc Estimated GFR Glucose POC Capillary Glucose 176 H 180 H Lactic Acid 4.1 H* Calcium Phosphorus Magnesium Total Bilirubin AST ALT Alkaline Phosphatase Total Creatine Kinase Troponin I 8.530 H* D NT-Pro-B Natriuret Pep Total Protein Albumin Triglycerides 232 H Urine Color Urine Appearance Urine pH Ur Specific Allison Urine Protein Urine Glucose (UA) Urine Ketones Ur Blood (Man) Urine Nitrate Urine Bilirubin Urine Urobilinogen Add Ur Microanalysis Leukocyte Esterase Rfl Urine RBC Urine WBC Ur Squamous Epith Cells Urine Bacteria Urine Casts Nasal MRSA (PCR) Salicylates Urine Opiates Screen Urine Methadone Screen Acetaminophen Ur Barbiturates Screen Ur Phencyclidine Scrn Ur Amphetamine Screen U Benzodiazepines Scrn Urine Cocaine Screen U Cannabinoids Screen Ethyl Alcohol Influenza A (RT-PCR) Influenza B (RT-PCR) Legionella Source Legionella Culture Legionella Cult Status RSV (RT-PCR) SARS-CoV-2 RNA (RT-PCR) 01/24/25 01/24/25 01/24/25 01:09 02:02 02:13 WBC RBC Hgb Hct MCV MCH MCHC RDW Plt Count MPV Immature Gran % (Auto) Neut % (Auto) Lymph % (Auto) [place] % (Auto) Eos % (Auto) Baso % (Auto) Lymph # (Auto) [place] # (Auto) Eos # (Auto) Baso # (Auto) Abs Immat Gran (auto) Absolute Neuts (auto) Absolute Nucleated RBC Nucleated RBC % PT INR APTT Puncture Site ABG pH ABG pCO2 ABG pO2 ABG PO2/FiO2 Ratio ABG HCO3 ABG O2 Saturation ABG O2 Content ABG Base Excess A-a Gradient Oxyhemoglobin Carboxyhemoglobin Methemoglobin Reduced Hemoglobin Total Hemoglobin O2 Delivery Device O2 Liters/Min Minute Volume Vent Rate Vent Mode FiO2 Tidal Volume PEEP Peak Inspir Pressure Pressure Support Sodium Potassium Chloride Carbon Dioxide Anion Gap BUN Creatinine Estim Creat Clear Calc Estimated GFR Glucose POC Capillary Glucose 135 H 141 H Lactic Acid Calcium Phosphorus Magnesium Total Bilirubin AST ALT Alkaline Phosphatase Total Creatine Kinase Troponin I NT-Pro-B Natriuret Pep Total Protein Albumin Triglycerides Urine Color Urine Appearance Urine pH Ur Specific Allison Urine Protein Urine Glucose (UA) Urine Ketones Ur Blood (Man) Urine Nitrate Urine Bilirubin Urine Urobilinogen Add Ur Microanalysis Leukocyte Esterase Rfl Urine RBC Urine WBC Ur Squamous Epith Cells Urine Bacteria Urine Casts Nasal MRSA (PCR) Salicylates Urine Opiates Screen Urine Methadone Screen Acetaminophen Ur Barbiturates Screen Ur Phencyclidine Scrn Ur Amphetamine Screen U Benzodiazepines Scrn Urine Cocaine Screen U Cannabinoids Screen Ethyl Alcohol Influenza A (RT-PCR) Influenza B (RT-PCR) Legionella Source Cancelled Legionella Culture Cancelled Legionella Cult Status Cancelled RSV (RT-PCR) SARS-CoV-2 RNA (RT-PCR) 01/24/25 01/24/25 01/24/25 02:56 04:05 04:58 WBC RBC Hgb Hct MCV MCH MCHC RDW Plt Count MPV Immature Gran % (Auto) Neut % (Auto) Lymph % (Auto) [place] % (Auto) Eos % (Auto) Baso % (Auto) Lymph # (Auto) [place] # (Auto) Eos # (Auto) Baso # (Auto) Abs Immat Gran (auto) Absolute Neuts (auto) Absolute Nucleated RBC Nucleated RBC % PT INR APTT Puncture Site ABG pH ABG pCO2 ABG pO2 ABG PO2/FiO2 Ratio ABG HCO3 ABG O2 Saturation ABG O2 Content ABG Base Excess A-a Gradient Oxyhemoglobin Carboxyhemoglobin Methemoglobin Reduced Hemoglobin Total Hemoglobin O2 Delivery Device O2 Liters/Min Minute Volume Vent Rate Vent Mode FiO2 Tidal Volume PEEP Peak Inspir Pressure Pressure Support Sodium Potassium Chloride Carbon Dioxide Anion Gap BUN Creatinine Estim Creat Clear Calc Estimated GFR Glucose POC Capillary Glucose 86 117 H 129 H Lactic Acid Calcium Phosphorus Magnesium Total Bilirubin AST ALT Alkaline Phosphatase Total Creatine Kinase Troponin I NT-Pro-B Natriuret Pep Total Protein Albumin Triglycerides Urine Color Urine Appearance Urine pH Ur Specific Allison Urine Protein Urine Glucose (UA) Urine Ketones Ur Blood (Man) Urine Nitrate Urine Bilirubin Urine Urobilinogen Add Ur Microanalysis Leukocyte Esterase Rfl Urine RBC Urine WBC Ur Squamous Epith Cells Urine Bacteria Urine Casts Nasal MRSA (PCR) Salicylates Urine Opiates Screen Urine Methadone Screen Acetaminophen Ur Barbiturates Screen Ur Phencyclidine Scrn Ur Amphetamine Screen U Benzodiazepines Scrn Urine Cocaine Screen U Cannabinoids Screen Ethyl Alcohol Influenza A (RT-PCR) Influenza B (RT-PCR) Legionella Source Legionella Culture Legionella Cult Status RSV (RT-PCR) SARS-CoV-2 RNA (RT-PCR) 01/24/25 01/24/25 01/24/25 05:23 05:41 06:07 WBC 14.6 H RBC 4.57 L Hgb 15.4 Hct 46.1 MCV 100.9 H MCH 33.7 MCHC 33.4 RDW 13.2 Plt Count 243 MPV 10.2 Immature Gran % (Auto) 0.5 Neut % (Auto) 70.8 Lymph % (Auto) 18.4 [place] % (Auto) 9.9 H Eos % (Auto) 0.1 Baso % (Auto) 0.3 Lymph # (Auto) 2.68 [place] # (Auto) 1.4 H Eos # (Auto) 0.0 Baso # (Auto) 0.1 Abs Immat Gran (auto) 0.07 H Absolute Neuts (auto) 10.3 H Absolute Nucleated RBC 0.000 Nucleated RBC % 0.0 PT INR APTT 79.5 H Puncture Site Right radial ABG pH 7.444 ABG pCO2 31.3 L ABG pO2 68.8 L ABG PO2/FiO2 Ratio 1.72 ABG HCO3 21.0 L ABG O2 Saturation 94.6 L ABG O2 Content 21.2 ABG Base Excess -1.9 A-a Gradient 180.4 Oxyhemoglobin 93.3 Carboxyhemoglobin Methemoglobin Reduced Hemoglobin Total Hemoglobin 16.2 O2 Delivery Device Ventilator O2 Liters/Min Not Reportable Minute Volume Not Reportable Vent Rate 18 Vent Mode Cmv FiO2 40 Tidal Volume 420 PEEP 5 Peak Inspir Pressure Not Reportable Pressure Support Not Reportable Sodium 136 L Potassium 3.5 Chloride 101 Carbon Dioxide 27 Anion Gap 8 BUN 14 D Creatinine 1.28 Estim Creat Clear Calc 63 Estimated GFR 54 L Glucose 164 H POC Capillary Glucose 128 H Lactic Acid 1.7 Calcium 8.3 L Phosphorus Magnesium 1.6 Total Bilirubin 0.8 AST 97 H ALT 69 H Alkaline Phosphatase 70 Total Creatine Kinase Troponin I NT-Pro-B Natriuret Pep Total Protein 6.7 Albumin 3.7 Triglycerides Urine Color Urine Appearance Urine pH Ur Specific Allison Urine Protein Urine Glucose (UA) Urine Ketones Ur Blood (Man) Urine Nitrate Urine Bilirubin Urine Urobilinogen Add Ur Microanalysis Leukocyte Esterase Rfl Urine RBC Urine WBC Ur Squamous Epith Cells Urine Bacteria Urine Casts Nasal MRSA (PCR) Salicylates Urine Opiates Screen Urine Methadone Screen Acetaminophen Ur Barbiturates Screen Ur Phencyclidine Scrn Ur Amphetamine Screen U Benzodiazepines Scrn Urine Cocaine Screen U Cannabinoids Screen Ethyl Alcohol Influenza A (RT-PCR) Influenza B (RT-PCR) Legionella Source Legionella Culture Legionella Cult Status RSV (RT-PCR) SARS-CoV-2 RNA (RT-PCR) 01/24/25 01/24/25 01/24/25 07:04 07:51 08:04 WBC RBC Hgb Hct MCV MCH MCHC RDW Plt Count MPV Immature Gran % (Auto) Neut % (Auto) Lymph % (Auto) [place] % (Auto) Eos % (Auto) Baso % (Auto) Lymph # (Auto) [place] # (Auto) Eos # (Auto) Baso # (Auto) Abs Immat Gran (auto) Absolute Neuts (auto) Absolute Nucleated RBC Nucleated RBC % PT INR APTT Puncture Site ABG pH ABG pCO2 ABG pO2 ABG PO2/FiO2 Ratio ABG HCO3 ABG O2 Saturation ABG O2 Content ABG Base Excess A-a Gradient Oxyhemoglobin Carboxyhemoglobin Methemoglobin Reduced Hemoglobin Total Hemoglobin O2 Delivery Device O2 Liters/Min Minute Volume Vent Rate Vent Mode FiO2 Tidal Volume PEEP Peak Inspir Pressure Pressure Support Sodium Potassium Chloride Carbon Dioxide Anion Gap BUN Creatinine Estim Creat Clear Calc Estimated GFR Glucose POC Capillary Glucose 120 H Lactic Acid Calcium Phosphorus Magnesium Total Bilirubin AST ALT Alkaline Phosphatase Total Creatine Kinase Troponin I 3.310 H* NT-Pro-B Natriuret Pep Total Protein Albumin Triglycerides Urine Color Yellow Urine Appearance Turbid H Urine pH 5.0 Ur Specific Allison 1.028 Urine Protein 2+ H Urine Glucose (UA) Negative Urine Ketones 1+ H Ur Blood (Man) 3+ H Urine Nitrate Negative Urine Bilirubin Negative Urine Urobilinogen 1.0 Add Ur Microanalysis Reviewed Leukocyte Esterase Rfl 1+ H Urine RBC >100 H Urine WBC 21-50 H Ur Squamous Epith Cells Many H Urine Bacteria Rare Urine Casts 6-10 Nasal MRSA (PCR) Salicylates < 1.0 L Urine Opiates Screen Positive A Urine Methadone Screen Negative Acetaminophen < 10 L Ur Barbiturates Screen Negative Ur Phencyclidine Scrn Negative Ur Amphetamine Screen Negative U Benzodiazepines Scrn Negative Urine Cocaine Screen Negative U Cannabinoids Screen Positive A Ethyl Alcohol < 10 Influenza A (RT-PCR) Influenza B (RT-PCR) Legionella Source Legionella Culture Legionella Cult Status RSV (RT-PCR) SARS-CoV-2 RNA (RT-PCR) 01/24/25 01/24/25 01/24/25 08:29 09:22 10:02 WBC RBC Hgb Hct MCV MCH MCHC RDW Plt Count MPV Immature Gran % (Auto) Neut % (Auto) Lymph % (Auto) [place] % (Auto) Eos % (Auto) Baso % (Auto) Lymph # (Auto) [place] # (Auto) Eos # (Auto) Baso # (Auto) Abs Immat Gran (auto) Absolute Neuts (auto) Absolute Nucleated RBC Nucleated RBC % PT INR APTT Puncture Site ABG pH ABG pCO2 ABG pO2 ABG PO2/FiO2 Ratio ABG HCO3 ABG O2 Saturation ABG O2 Content ABG Base Excess A-a Gradient Oxyhemoglobin Carboxyhemoglobin Methemoglobin Reduced Hemoglobin Total Hemoglobin O2 Delivery Device O2 Liters/Min Minute Volume Vent Rate Vent Mode FiO2 Tidal Volume PEEP Peak Inspir Pressure Pressure Support Sodium Potassium Chloride Carbon Dioxide Anion Gap BUN Creatinine Estim Creat Clear Calc Estimated GFR Glucose POC Capillary Glucose 144 H 130 H 139 H Lactic Acid Calcium Phosphorus Magnesium Total Bilirubin AST ALT Alkaline Phosphatase Total Creatine Kinase Troponin I NT-Pro-B Natriuret Pep Total Protein Albumin Triglycerides Urine Color Urine Appearance Urine pH Ur Specific Allison Urine Protein Urine Glucose (UA) Urine Ketones Ur Blood (Man) Urine Nitrate Urine Bilirubin Urine Urobilinogen Add Ur Microanalysis Leukocyte Esterase Rfl Urine RBC Urine WBC Ur Squamous Epith Cells Urine Bacteria Urine Casts Nasal MRSA (PCR) Salicylates Urine Opiates Screen Urine Methadone Screen Acetaminophen Ur Barbiturates Screen Ur Phencyclidine Scrn Ur Amphetamine Screen U Benzodiazepines Scrn Urine Cocaine Screen U Cannabinoids Screen Ethyl Alcohol Influenza A (RT-PCR) Influenza B (RT-PCR) Legionella Source Legionella Culture Legionella Cult Status RSV (RT-PCR) SARS-CoV-2 RNA (RT-PCR) 01/24/25 01/24/25 01/24/25 11:15 11:17 11:28 WBC 12.8 H RBC 4.72 Hgb 15.9 Hct 47.4 MCV 100.4 H MCH 33.7 MCHC 33.5 RDW 13.2 Plt Count 221 MPV 10.2 Immature Gran % (Auto) Neut % (Auto) Lymph % (Auto) [place] % (Auto) Eos % (Auto) Baso % (Auto) Lymph # (Auto) [place] # (Auto) Eos # (Auto) Baso # (Auto) Abs Immat Gran (auto) Absolute Neuts (auto) Absolute Nucleated RBC Nucleated RBC % PT 17.1 H INR 1.4 APTT 105.0 H Puncture Site Left radial ABG pH 7.393 ABG pCO2 34.3 L ABG pO2 58.3 L ABG PO2/FiO2 Ratio 1.17 ABG HCO3 20.4 L ABG O2 Saturation 90.4 L ABG O2 Content 21.0 ABG Base Excess -3.5 A-a Gradient 259.6 Oxyhemoglobin 88.6 L Carboxyhemoglobin 0.7 Methemoglobin 0.0 Reduced Hemoglobin 10.7 H Total Hemoglobin 16.9 O2 Delivery Device Ventilator O2 Liters/Min Not Reportable Minute Volume Not Reportable Vent Rate 18 Vent Mode Assist control FiO2 50 Tidal Volume 420 PEEP 5 Peak Inspir Pressure Not Reportable Pressure Support Not Reportable Sodium 135 L Potassium 3.3 L Chloride 101 Carbon Dioxide 26 Anion Gap 8 BUN 12 Creatinine 1.07 Estim Creat Clear Calc 75 Estimated GFR > 60 Glucose 172 H POC Capillary Glucose 208 H Lactic Acid 1.9 Calcium 8.3 L Phosphorus 3.7 Magnesium Total Bilirubin AST ALT Alkaline Phosphatase Total Creatine Kinase 359 H Troponin I NT-Pro-B Natriuret Pep Total Protein Albumin Triglycerides Urine Color Urine Appearance Urine pH Ur Specific Allison Urine Protein Urine Glucose (UA) Urine Ketones Ur Blood (Man) Urine Nitrate Urine Bilirubin Urine Urobilinogen Add Ur Microanalysis Leukocyte Esterase Rfl Urine RBC Urine WBC Ur Squamous Epith Cells Urine Bacteria Urine Casts Nasal MRSA (PCR) Salicylates Urine Opiates Screen Urine Methadone Screen Acetaminophen Ur Barbiturates Screen Ur Phencyclidine Scrn Ur Amphetamine Screen U Benzodiazepines Scrn Urine Cocaine Screen U Cannabinoids Screen Ethyl Alcohol Influenza A (RT-PCR) Influenza B (RT-PCR) Legionella Source Legionella Culture Legionella Cult Status RSV (RT-PCR) SARS-CoV-2 RNA (RT-PCR) 01/24/25 01/24/25 01/24/25 13:08 14:08 15:10 WBC RBC Hgb Hct MCV MCH MCHC RDW Plt Count MPV Immature Gran % (Auto) Neut % (Auto) Lymph % (Auto) [place] % (Auto) Eos % (Auto) Baso % (Auto) Lymph # (Auto) [place] # (Auto) Eos # (Auto) Baso # (Auto) Abs Immat Gran (auto) Absolute Neuts (auto) Absolute Nucleated RBC Nucleated RBC % PT INR APTT Puncture Site ABG pH ABG pCO2 ABG pO2 ABG PO2/FiO2 Ratio ABG HCO3 ABG O2 Saturation ABG O2 Content ABG Base Excess A-a Gradient Oxyhemoglobin Carboxyhemoglobin Methemoglobin Reduced Hemoglobin Total Hemoglobin O2 Delivery Device O2 Liters/Min Minute Volume Vent Rate Vent Mode FiO2 Tidal Volume PEEP Peak Inspir Pressure Pressure Support Sodium Potassium Chloride Carbon Dioxide Anion Gap BUN Creatinine Estim Creat Clear Calc Estimated GFR Glucose POC Capillary Glucose 196 H 194 H 208 H Lactic Acid Calcium Phosphorus Magnesium Total Bilirubin AST ALT Alkaline Phosphatase Total Creatine Kinase Troponin I NT-Pro-B Natriuret Pep Total Protein Albumin Triglycerides Urine Color Urine Appearance Urine pH Ur Specific Allison Urine Protein Urine Glucose (UA) Urine Ketones Ur Blood (Man) Urine Nitrate Urine Bilirubin Urine Urobilinogen Add Ur Microanalysis Leukocyte Esterase Rfl Urine RBC Urine WBC Ur Squamous Epith Cells Urine Bacteria Urine Casts Nasal MRSA (PCR) Salicylates Urine Opiates Screen Urine Methadone Screen Acetaminophen Ur Barbiturates Screen Ur Phencyclidine Scrn Ur Amphetamine Screen U Benzodiazepines Scrn Urine Cocaine Screen U Cannabinoids Screen Ethyl Alcohol Influenza A (RT-PCR) Influenza B (RT-PCR) Legionella Source Legionella Culture Legionella Cult Status RSV (RT-PCR) SARS-CoV-2 RNA (RT-PCR) 01/24/25 01/24/25 01/24/25 16:00 17:10 17:53 WBC RBC Hgb Hct MCV MCH MCHC RDW Plt Count MPV Immature Gran % (Auto) Neut % (Auto) Lymph % (Auto) [place] % (Auto) Eos % (Auto) Baso % (Auto) Lymph # (Auto) [place] # (Auto) Eos # (Auto) Baso # (Auto) Abs Immat Gran (auto) Absolute Neuts (auto) Absolute Nucleated RBC Nucleated RBC % PT INR APTT Puncture Site ABG pH ABG pCO2 ABG pO2 ABG PO2/FiO2 Ratio ABG HCO3 ABG O2 Saturation ABG O2 Content ABG Base Excess A-a Gradient Oxyhemoglobin Carboxyhemoglobin Methemoglobin Reduced Hemoglobin Total Hemoglobin O2 Delivery Device O2 Liters/Min Minute Volume Vent Rate Vent Mode FiO2 Tidal Volume PEEP Peak Inspir Pressure Pressure Support Sodium Potassium Chloride Carbon Dioxide Anion Gap BUN Creatinine Estim Creat Clear Calc Estimated GFR Glucose POC Capillary Glucose 192 H 165 H 200 H Lactic Acid Calcium Phosphorus Magnesium Total Bilirubin AST ALT Alkaline Phosphatase Total Creatine Kinase Troponin I NT-Pro-B Natriuret Pep Total Protein Albumin Triglycerides Urine Color Urine Appearance Urine pH Ur Specific [place] Urine Protein Urine Glucose (UA) Urine Ketones Ur Blood (Man) Urine Nitrate Urine Bilirubin Urine Urobilinogen Add Ur Microanalysis Leukocyte Esterase Rfl Urine RBC Urine WBC Ur Squamous Epith Cells Urine Bacteria Urine Casts Nasal MRSA (PCR) Salicylates Urine Opiates Screen Urine Methadone Screen Acetaminophen Ur Barbiturates Screen Ur Phencyclidine Scrn Ur Amphetamine Screen U Benzodiazepines Scrn Urine Cocaine Screen U Cannabinoids Screen Ethyl Alcohol Influenza A (RT-PCR) Influenza B (RT-PCR) Legionella Source Legionella Culture Legionella Cult Status RSV (RT-PCR) SARS-CoV-2 RNA (RT-PCR)
[2025-01-24] MEDS: VANCOMYCIN 1,500 MG/NS 500 ML 1,500 MG/500 ML BAG 250 MG IVPB (18:28)
[2025-01-24 18:34] LABS: Creatine Kinase 390 U/L (55-170)
[2025-01-24] MEDS: ATORVASTATIN 40 MG TABLET 80 MG PO (21:22)
[2025-01-24 23:48] LABS: Hematocrit 47.0 % (42.0-52.0); Hemoglobin 16.2 g/dL (14.0-18.0); Mean Corpuscular HGB Conc 34.5 g/dl (32-36); Mean Corpuscular Hemoglobin 33.5 pg (26-34); Mean Corpuscular Volume 97.1 fl (80-100); Platelet Count Result 204 k/mm3 (150-375); Red Blood Count 4.84 M/mm3 (4.6-6.20); White Blood Count 12.1 K/mm3 (4.5-10.0)
[2025-01-25] VITALS (45 sets, daily range): BP systolic 90–175; BP diastolic 61–109; PULSE 48–86; RESP 17–29; TEMP 32.2–37.4; O2SAT 95–100
[2025-01-25] MEDS: HEPARIN SOD/D5W 100 UNITS/ML 25,000 UNITS/250 ML BAG 10 UNITS IV CONT
[2025-01-25 00:01] LABS: INR 1.3; Prothrombin Time 16.3 Seconds (11.1-14.7)
[2025-01-25 00:02] LABS: Anion Gap 5 mmol/L (4-12); Blood Urea Nitrogen 12 mg/dL (9-20); Calcium 8.1 mg/dL (8.4-10.2); Carbon Dioxide 26 mmol/L (22-30); Chloride 103 mmol/L (98-107); Creatine Kinase 307 U/L (55-170); Estimated CRCL calculation 86 ml/min; Estimated Glomerular Filt Rate > 60; Glucose 132 mg/dL (65-110); Potassium 2.8 mmol/L (3.4-5.0); Sodium 134 mmol/L (137-145)
[2025-01-25 00:40] LABS: HCO3 ABG 19.2 mEq/l (22.0-26.0); PCO2 ABG 27.8 mmHg (35.0-45.0); PO2 ABG 73.1 mmHg (80.0-100.0)
[2025-01-25 00:41] LABS: Oxygen Saturation ABG 95.6 % (95.0-100.0)
[2025-01-25 00:42] LABS: Fractional Inspired Oxygen 60 %; Modified Allen's Test Pass; Site Drawn LEFT BRACHIAL
[2025-01-25 00:43] LABS: Oxygen Content ABG 21.8 %vol (16.0-22.0)
[2025-01-25 00:46] LABS: PO2 FiO2 Ratio Arterial Blood 1.22 %
[2025-01-25 00:48] LABS: Alveolar/Arterial O2 Gradient 324.1 mmHg
[2025-01-25 00:49] LABS: Arterial Blood Gas Tidal Volume 420 ml; Arterial Blood Gas Ventilator rate 18 /MIN
[2025-01-25] MEDS: IPRATROPIUM 0.5 MG/ALBUTEROL SULFATE 2.5 MG (BASE) AMPUL.NEB 3 ML INHALATION ×4 (01:00→20:04)
[2025-01-25] MEDS: KCL 40 MEQ/WATER 100 ML 100 ML 25 ML IVPB ×2 (01:09→05:08)
[2025-01-25] MEDS: CISATRACURIUM BESYLATE 200 MG in SODIUM CHLORIDE 0.9% IV 80 ML 8.98 ML IV CONT (04:10)
[2025-01-25] MEDS: PIPERACILLIN/TAZOBACTAM SOD 3.375 GM in SODIUM CHLORIDE 0.9% IV 50 ML 100 ML IVPB ×4 (04:12→21:58)
--- NOTE | 2025-01-25 04:43 | PC.NURSE ---
Attempted to reach son, BEAN, for consent for [employer]. Son did not answer. Unable to leave message
[2025-01-25 04:56] LABS: Alveolar/Arterial O2 Gradient 318.6 mmHg; Carboxyhemoglobin 0.7 % THb (0-2.0); Fractional Inspired Oxygen 60 %; HCO3 ABG 21.3 mEq/l (22.0-26.0); Methemoglobin ABG 0.2 %THb (0-1.5); Oxygen Content ABG 22.7 %vol (16.0-22.0); Oxygen Saturation ABG 95.0 % (95.0-100.0); PCO2 ABG 33.5 mmHg (35.0-45.0); PO2 ABG 72.4 mmHg (80.0-100.0); PO2 FiO2 Ratio Arterial Blood 1.21 %; Reduced Hemoglobin 5.5 %THb (0-5.0)
[2025-01-25 05:02] LABS: Arterial Blood Gas Ventilator rate 18 /MIN; Modified Allen's Test Pass; Site Drawn RIGHT RADIAL
[2025-01-25 05:03] LABS: Arterial Blood Gas Tidal Volume 420 ml
[2025-01-25 05:14] LABS: Hematocrit 47.9 % (42.0-52.0); Hemoglobin 16.6 g/dL (14.0-18.0); Immature Granulocyte Percent A 0.4 % (0-0.5); Lymphocytes Absolute Auto 2.26 K/mm3 (0.9-3.2); Mean Corpuscular HGB Conc 34.7 g/dl (32-36); Mean Corpuscular Hemoglobin 33.6 pg (26-34); Mean Corpuscular Volume 97.0 fl (80-100); Nucleated Red Blood Cells Absolute Auto 0.000 K/mm3 (0.0-0.012); Nucleated Red Blood Cells Perc 0.0 % (0.0-0.2); Platelet Count Result 226 k/mm3 (150-375); Red Blood Count 4.94 M/mm3 (4.6-6.20); White Blood Count 13.4 K/mm3 (4.5-10.0)
[2025-01-25 05:33] LABS: Alanine Aminotransferase 52 U/L (6-50); Albumin Level 3.3 g/dL (3.5-5.1); Alkaline Phosphatase 65 U/L (38-126); Anion Gap 5 mmol/L (4-12); Aspartate Amino Transferase 77 U/L (17-59); Bilirubin,Total 0.9 mg/dL (0.2-1.3); Blood Urea Nitrogen 12 mg/dL (9-20); Calcium 8.1 mg/dL (8.4-10.2); Carbon Dioxide 26 mmol/L (22-30); Chloride 104 mmol/L (98-107); Creatine Kinase 250 U/L (55-170); Estimated CRCL calculation 85 ml/min; Estimated Glomerular Filt Rate > 60; Glucose 119 mg/dL (65-110); Magnesium 2.1 mg/dL (1.6-2.3); Potassium 3.0 mmol/L (3.4-5.0); Sodium 135 mmol/L (137-145); Total Protein 6.2 g/dL (6.3-8.2)
[2025-01-25 05:37] LABS: Partial Thromboplastin Time 179.5 Seconds (22.3-36.8)
[2025-01-25] MEDS: CENTRAL LINE FLUSH 10 ML IV PUSH ×3 (05:59→22:03)
[2025-01-25] MEDS: ASPIRIN 81 MG ENTERIC TABLET PO (08:06)
[2025-01-25] MEDS: MINERAL OIL/WHITE PETROLATUM OINTMENT 1 APPLIC EACH EYE ×2 (08:06→20:19)
[2025-01-25] MEDS: PANTOPRAZOLE SODIUM IV 40 MG VIAL IV PUSH (08:06)
--- NOTE | 2025-01-25 10:24 | PCCARD ---
Per nurse Elena try again tommorow 01/26/25 for echo due to temperature management.
--- NOTE | 2025-01-25 10:52 | PM.PNCARD ---
Progress Note: A&P Assessment and Plan (1) Coronary artery disease involving agdaagux coronary artery of agdaagux heart without angina pectoris: Code(s): I25.10 - Atherosclerotic heart disease of agdaagux coronary artery without angina pectoris Status: Acute (2) Essential hypertension: Code(s): I10 - Essential (primary) hypertension Status: Acute (3) Cardiac arrest with ventricular fibrillation: Code(s): I46.9 - Cardiac arrest, cause unspecified; I49.01 - Ventricular fibrillation Status: Acute (4) Chronic atrial fibrillation: Code(s): I48.20 - Chronic atrial fibrillation, unspecified Status: Acute (5) History of radiofrequency ablation procedure for cardiac arrhythmia: Code(s): Z98.890 - Other specified postprocedural states Status: Acute (6) Mixed hyperlipidemia: Code(s): E78.2 - Mixed hyperlipidemia Status: Acute (7) Chronic anticoagulation: Code(s): 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.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 Status: Acute (8) Morbid obesity with BMI of 40.0-44.9, adult: Code(s): E66.01 - Morbid (severe) obesity due to excess calories; Z68.41 - Body mass index [BMI] 40.0-44.9, adult Status: Acute Plan 79-year-old male with past medical history of hypertension, morbid obesity, chronic atrial fibrillation status post ablation on chronic anticoagulation, coronary artery disease, hypertension, systolic heart failure with LVEF of 45-50% by echo in 2021, alcohol abuse, recent fall on [place]/ very sustained right wrist fracture placed in a splint (has superficial infection and placed on antibiotics) with VFib arrest s/p shock, CPR with ROSC. Admitted to the ICU. 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 But he continued to have PVCs in a bigeminy pattern. Started on lidocaine drip yesterday. He is now sinus rhythm with rare PVCs. Continue heparin drip. Hold apixaban as he is on heparin drip. Continue aspirin 81 mg daily. Continue coreg 3.125 mg p.o. b.i.d. which is his home dose. Restart statin once LFTs are back to normal. Cardiac catheterization today after rewarming. Creatinine back to baseline. On exam he does not appear to be fluid up. Hold off on diuresis. Add empagliflozin 10 mg p.o. daily for diastolic heart failure. TTE Management of other medical problems per primary team. 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 He was sedated intubated. Amiodarone was started. Cardiology was consulted as initial EKG showed ST elevation. However repeat EKGs showed atrial fibrillation without any ST elevation but with some ST depression. Given no ST elevation on EKG, patient was not taken to microbiology lab assistant emergently. Heparin drip was started. Interval history: Patient remains sedated and intubated. Patient is being cooled currently until noon. He is going to be rewarmed starting around noon today. He was started on lidocaine yesterday for frequent PVCs and PVCs in a bigeminy pattern. Telemetry now shows sinus rhythm with rare PVCs. Review of Systems Review of Systems: A complete review of systems could not be performed as patient is intubated and sedated. Exam Narrative: General: Sedated and intubated, not moving any extremities Neck: Supple, unable to assess JVD due to patient being intubated Chest: Bibasilar crackles present, no rhonchi Cardiac: S1, S2 +, regular rate, regular rhythm, no murmurs or rubs Extremities: Bilateral lower extremity edema 1+, no skin rash Neurologic: Sedated and intubated, not moving any extremities Objective Data Vital Signs Vital Signs: Vital Signs - 24 hr 01/24/25 11:00 01/24/25 11:00 01/24/25 11:28 Temperature 33.8 C L 33.8 C L Pulse Rate 36 L 36 L 36 L Respiratory Rate 18 18 Blood Pressure 182/75 H 182/75 H 182/75 H Pulse Oximetry 91 91 Oxygen Delivery Fraction of Inspired Oxygen 01/24/25 11:29 01/24/25 11:52 01/24/25 12:00 Temperature Pulse Rate 62 29 L Respiratory Rate 18 Blood Pressure Pulse Oximetry 92 Oxygen Delivery Mechanical Ventilation Mechanical Ventilation Fraction of Inspired Oxygen 50 60 01/24/25 12:00 01/24/25 12:00 01/24/25 12:00 Temperature 33.4 C L 33.4 C L Pulse Rate 36 L 36 L Respiratory Rate 18 18 Blood Pressure 182/75 H 182/76 H Pulse Oximetry 95 95 95 Oxygen Delivery Mechanical Ventilation Fraction of Inspired Oxygen 60 01/24/25 12:00 01/24/25 12:00 01/24/25 12:00 Temperature Pulse Rate 36 L 36 L Respiratory Rate 18 18 Blood Pressure 182/75 H Pulse Oximetry Oxygen Delivery Fraction of Inspired Oxygen 60 01/24/25 12:00 01/24/25 12:25 01/24/25 12:26 Temperature Pulse Rate 36 L 29 L 29 L Respiratory Rate 18 Blood Pressure 158/81 H Pulse Oximetry Oxygen Delivery Fraction of Inspired Oxygen 01/24/25 12:35 01/24/25 13:00 01/24/25 13:00 Temperature 32.9 C L 32.5 C L 32.5 C L Pulse Rate 31 L 40 L 40 L Respiratory Rate 18 18 18 Blood Pressure 186/85 H 199/89 H 199/89 H Pulse Oximetry 92 95 95 Oxygen Delivery Fraction of Inspired Oxygen 01/24/25 14:00 01/24/25 14:00 01/24/25 14:00 Temperature 32.1 C L Pulse Rate 61 61 61 Respiratory Rate 18 18 18 Blood Pressure 202/107 H Pulse Oximetry 96 Oxygen Delivery Fraction of Inspired Oxygen 01/24/25 14:00 01/24/25 14:00 01/24/25 14:00 Temperature 32.1 C L Pulse Rate 61 61 36 L Respiratory Rate 18 18 Blood Pressure 202/107 H 202/107 H Pulse Oximetry 96 Oxygen Delivery Fraction of Inspired Oxygen 01/24/25 14:03 01/24/25 14:03 01/24/25 14:03 Temperature Pulse Rate 64 64 64 Respiratory Rate 18 18 Blood Pressure Pulse Oximetry 96 Oxygen Delivery Mechanical Ventilation Fraction of Inspired Oxygen 60 01/24/25 14:12 01/24/25 14:25 01/24/25 15:00 Temperature 32.2 C L Pulse Rate 64 68 Respiratory Rate 18 Blood Pressure 195/106 H 188/116 H 165/96 H Pulse Oximetry 94 Oxygen Delivery Fraction of Inspired Oxygen 01/24/25 15:00 01/24/25 16:00 01/24/25 16:00 Temperature 32.2 C L 32.4 C L 32.4 C L Pulse Rate 68 62 62 Respiratory Rate 18 18 18 Blood Pressure 165/96 H 150/92 H 150/92 H Pulse Oximetry 96 97 97 Oxygen Delivery Fraction of Inspired Oxygen 01/24/25 16:00 01/24/25 16:00 01/24/25 16:00 Temperature Pulse Rate 66 Respiratory Rate Blood Pressure Pulse Oximetry 94 Oxygen Delivery Mechanical Ventilation Fraction of Inspired Oxygen 60 60 01/24/25 16:00 01/24/25 16:00 01/24/25 16:00 Temperature Pulse Rate 65 65 65 Respiratory Rate 18 18 Blood Pressure 150/92 H Pulse Oximetry Oxygen Delivery Fraction of Inspired Oxygen 01/24/25 16:14 01/24/25 16:14 01/24/25 17:00 Temperature 32.7 C L Pulse Rate 62 62 56 L Respiratory Rate 18 18 18 Blood Pressure 150/92 H 150/92 H 130/77 Pulse Oximetry 96 Oxygen Delivery Fraction of Inspired Oxygen 01/24/25 17:00 01/24/25 17:20 01/24/25 18:00 Temperature 32.7 C L 33.2 C L Pulse Rate 56 L 66 53 L Respiratory Rate 18 18 Blood Pressure 130/77 103/74 Pulse Oximetry 96 97 100 Oxygen Delivery Mechanical Ventilation Fraction of Inspired Oxygen 60 01/24/25 18:00 01/24/25 18:00 01/24/25 18:00 Temperature 33.2 C L Pulse Rate 53 L 53 L 63 Respiratory Rate 18 Blood Pressure 129/94 H 129/94 H Pulse Oximetry 100 Oxygen Delivery Fraction of Inspired Oxygen 01/24/25 18:00 01/24/25 18:00 01/24/25 18:58 Temperature 33.3 C L Pulse Rate 63 63 53 L Respiratory Rate 18 18 18 Blood Pressure 94/72 L Pulse Oximetry 100 Oxygen Delivery Fraction of Inspired Oxygen 01/24/25 18:58 01/24/25 19:19 01/24/25 19:23 Temperature 33.3 C L Pulse Rate 53 L 72 70 Respiratory Rate 18 18 Blood Pressure 97/75 L Pulse Oximetry 100 100 Oxygen Delivery Mechanical Ventilation Fraction of Inspired Oxygen 60 01/24/25 19:30 01/24/25 20:00 01/24/25 20:00 Temperature 33.8 C L 33.8 C L Pulse Rate 71 74 72 Respiratory Rate 18 18 18 Blood Pressure 140/89 140/89 Pulse Oximetry 94 96 Oxygen Delivery Fraction of Inspired Oxygen 01/24/25 20:00 01/24/25 20:00 01/24/25 20:00 Temperature Pulse Rate 75 Respiratory Rate 18 Blood Pressure 140/89 Pulse Oximetry 96 Oxygen Delivery Mechanical Ventilation Fraction of Inspired Oxygen 60 60 01/24/25 20:00 01/24/25 20:00 01/24/25 20:00 Temperature Pulse Rate 75 75 75 Respiratory Rate 18 18 Blood Pressure 140/89 Pulse Oximetry Oxygen Delivery Fraction of Inspired Oxygen 01/24/25 20:00 01/24/25 21:00 01/24/25 21:00 Temperature 33.7 C L 33.7 C L Pulse Rate 72 70 70 Respiratory Rate 18 18 Blood Pressure 130/90 130/90 Pulse Oximetry 95 95 Oxygen Delivery Fraction of Inspired Oxygen 01/24/25 22:00 01/24/25 22:00 01/24/25 22:00 Temperature 33.3 C L 33.3 C L Pulse Rate 65 65 65 Respiratory Rate 18 18 Blood Pressure 127/90 127/90 Pulse Oximetry 96 96 Oxygen Delivery Fraction of Inspired Oxygen 01/24/25 22:00 01/24/25 22:00 01/24/25 22:00 Temperature Pulse Rate 65 65 65 Respiratory Rate 18 18 Blood Pressure 127/90 127/90 Pulse Oximetry Oxygen Delivery Fraction of Inspired Oxygen 01/24/25 22:00 01/24/25 22:49 01/24/25 23:00 Temperature 32.8 C L Pulse Rate 65 61 60 Respiratory Rate 18 18 Blood Pressure 133/95 H Pulse Oximetry 97 97 Oxygen Delivery Mechanical Ventilation Fraction of Inspired Oxygen 60 01/24/25 23:00 01/24/25 23:46 01/25/25 00:00 Temperature 32.7 C L 32.2 C L Pulse Rate 60 48 L 52 L Respiratory Rate 18 18 18 Blood Pressure 133/95 H 105/81 Pulse Oximetry 97 97 Oxygen Delivery Fraction of Inspired Oxygen 01/25/25 00:00 01/25/25 00:00 01/25/25 00:00 Temperature 32.2 C L Pulse Rate 52 L Respiratory Rate 18 Blood Pressure 105/81 Pulse Oximetry 97 97 Oxygen Delivery Mechanical Ventilation Fraction of Inspired Oxygen 60 60 01/25/25 00:00 01/25/25 00:00 01/25/25 00:00 Temperature Pulse Rate 52 L 52 L 52 L Respiratory Rate 18 18 Blood Pressure 105/81 105/81 Pulse Oximetry Oxygen Delivery Fraction of Inspired Oxygen 01/25/25 00:00 01/25/25 00:00 01/25/25 01:00 Temperature Pulse Rate 52 L 51 L 52 L Respiratory Rate 18 18 Blood Pressure Pulse Oximetry Oxygen Delivery Fraction of Inspired Oxygen 01/25/25 01:00 01/25/25 01:00 01/25/25 01:01 Temperature 32.3 C L 32.3 C L Pulse Rate 52 L 52 L 51 L Respiratory Rate 18 18 Blood Pressure 106/74 106/74 Pulse Oximetry 97 97 97 Oxygen Delivery Mechanical Ventilation Fraction of Inspired Oxygen 60 01/25/25 01:07 01/25/25 02:00 01/25/25 02:00 Temperature 33.0 C L 33.0 C L Pulse Rate 52 L 58 L 58 L Respiratory Rate 18 18 Blood Pressure 106/74 100/76 100/76 Pulse Oximetry 99 99 Oxygen Delivery Fraction of Inspired Oxygen 01/25/25 02:00 01/25/25 02:00 01/25/25 02:00 Temperature Pulse Rate 58 L 58 L 58 L Respiratory Rate 18 18 Blood Pressure 100/76 100/76 Pulse Oximetry Oxygen Delivery Fraction of Inspired Oxygen 01/25/25 02:00 01/25/25 02:00 01/25/25 03:00 Temperature 33.8 C L Pulse Rate 58 L 58 L 70 Respiratory Rate 18 18 Blood Pressure 138/90 Pulse Oximetry 99 Oxygen Delivery Fraction of Inspired Oxygen 01/25/25 03:00 01/25/25 04:00 01/25/25 04:00 Temperature 33.8 C L 34.0 C L Pulse Rate 70 78 78 Respiratory Rate 18 18 18 Blood Pressure 138/90 140/100 H 140/100 H Pulse Oximetry 99 98 Oxygen Delivery Fraction of Inspired Oxygen 01/25/25 04:00 01/25/25 04:00 01/25/25 04:00 Temperature 34.0 C L Pulse Rate 78 Respiratory Rate 18 Blood Pressure 140/100 H Pulse Oximetry 98 98 Oxygen Delivery Mechanical Ventilation Fraction of Inspired Oxygen 60 60 01/25/25 04:00 01/25/25 04:00 01/25/25 04:00 Temperature Pulse Rate 77 78 78 Respiratory Rate 18 Blood Pressure 140/100 H Pulse Oximetry Oxygen Delivery Fraction of Inspired Oxygen 01/25/25 04:00 01/25/25 04:10 01/25/25 04:10 Temperature Pulse Rate 78 73 73 Respiratory Rate 18 18 18 Blood Pressure 141/96 H 141/96 H Pulse Oximetry Oxygen Delivery Fraction of Inspired Oxygen 01/25/25 05:00 01/25/25 05:00 01/25/25 05:14 Temperature 33.5 C L 33.8 C L Pulse Rate 64 64 64 Respiratory Rate 18 18 Blood Pressure 134/105 H 134/105 H Pulse Oximetry 98 98 99 Oxygen Delivery Mechanical Ventilation Fraction of Inspired Oxygen 60 01/25/25 06:00 01/25/25 06:00 01/25/25 06:00 Temperature 33.2 C L 33.2 C L Pulse Rate 55 L 55 L 55 L Respiratory Rate 18 18 Blood Pressure 139/92 H 139/92 H Pulse Oximetry 100 100 Oxygen Delivery Fraction of Inspired Oxygen 01/25/25 06:00 01/25/25 06:00 01/25/25 06:00 Temperature Pulse Rate 57 L 57 L 57 L Respiratory Rate 18 18 18 Blood Pressure 139/92 H Pulse Oximetry Oxygen Delivery Fraction of Inspired Oxygen 01/25/25 07:00 01/25/25 08:00 01/25/25 08:00 Temperature 32.5 C L 32.5 C L Pulse Rate 49 L 52 L Respiratory Rate 18 18 Blood Pressure 119/89 116/79 Pulse Oximetry 100 100 Oxygen Delivery Fraction of Inspired Oxygen 60 01/25/25 08:00 01/25/25 08:00 01/25/25 08:00 Temperature Pulse Rate 55 L 55 L Respiratory Rate 18 Blood Pressure 116/79 116/79 Pulse Oximetry Oxygen Delivery Mechanical Ventilation Fraction of Inspired Oxygen 60 01/25/25 08:00 01/25/25 08:00 01/25/25 08:21 Temperature Pulse Rate 55 L 55 L 52 L Respiratory Rate 18 18 Blood Pressure Pulse Oximetry 100 Oxygen Delivery Mechanical Ventilation Fraction of Inspired Oxygen 60 01/25/25 08:21 01/25/25 08:30 01/25/25 09:00 Temperature 33.0 C L Pulse Rate 52 L 55 L 57 L Respiratory Rate 18 18 18 Blood Pressure 137/93 H Pulse Oximetry 100 Oxygen Delivery Fraction of Inspired Oxygen 01/25/25 10:00 01/25/25 10:00 01/25/25 10:00 Temperature 33.2 C L Pulse Rate 56 L 56 L 56 L Respiratory Rate 18 18 Blood Pressure 137/85 137/85 137/85 Pulse Oximetry 100 Oxygen Delivery Fraction of Inspired Oxygen 01/25/25 10:00 01/25/25 10:00 01/25/25 10:00 Temperature 33.2 C L Pulse Rate 56 L 56 L 55 L Respiratory Rate 18 18 18 Blood Pressure 137/85 Pulse Oximetry 100 Oxygen Delivery Fraction of Inspired Oxygen Intake/Output Intake/Output: Intake & Output 01/22/25 01/23/25 01/24/25 01/25/25 23:59 23:59 23:59 23:59 Intake Total 33.3 4480.4 766.5 Output Total 600 1635 616 Balance -566.7 2845.4 150.5 Meds/Results Medications: Active Medications Generic Name Dose Route Start Last Admin Trade Name Freq PRN Reason Stop Dose Admin Albuterol/Ipratropium 3 ml 01/24/25 02:00 01/25/25 08:20 Ipratropium 0.5 Mg/Albuterol Sulfate 2.5 Mg (Base) Ampul.Neb 3 Ml INHALATION 3 ml Q6HRT JOCELYNE Administration Aspirin 81 mg 01/24/25 12:00 01/25/25 08:06 Aspirin 81 Mg Enteric Tablet PO 81 mg QAM JOCELYNE Administration Atorvastatin Calcium 80 mg 01/24/25 21:00 01/24/25 21:22 Atorvastatin 40 Mg Tablet PO 80 mg QHS [facility] Administration Carvedilol 3.125 mg 01/24/25 21:00 Carvedilol 3.125 Mg Tablet PO On Hold: 01/24/25 21:00 Q12HR [facility] Heparin Sodium (Porcine) 4,000 units 01/23/25 17:10 Heparin Sodium 5,000 Units/Ml Vial IV PUSH PRN PRN aPTT less than 55 seconds Heparin Sodium (Porcine) 4,000 units 01/23/25 17:10 Heparin Sodium 5,000 Units/Ml Vial IV PUSH PRN PRN aPTT 55 - 70 seconds Hydralazine HCl 10 mg 01/24/25 11:31 01/24/25 14:05 Hydralazine Hcl 20 Mg/Ml Vial IV PUSH 10 mg Q4H PRN Administration Blood Pressure - High Heparin Sodium/Dextrose 25,000 units in 250 mls @ 7 mls/hr 01/23/25 17:10 01/25/25 08:00 Heparin Sodium/D5w 100 Units/Ml IV CONT 700 units/hr .Q24H JOCELYNE 7 mls/hr Protocol Titration 700 UNITS/HR Fentanyl Citrate 2,500 mcg in 250 mls @ 2.5 mls/hr 01/23/25 21:15 01/25/25 10:00 Fentanyl 2,500 Mcg/Ns 250 Ml IV CONT 25 mcg/hr .Q72H JOCELYNE 2.5 mls/hr Protocol Titration 25 MCG/HR Piperacillin Sod/Tazobactam 50 mls @ 100 mls/hr 01/23/25 22:00 01/25/25 10:15 Sod 3.375 gm/ Sodium Chloride IVPB Infused Q6H JOCELYNE Infusion Cisatracurium Besylate 200 mg/ 100 mls @ 6.732 mls/hr 01/23/25 22:50 01/25/25 10:00 Sodium Chloride IV CONT 1.5 mcg/kg/min .[id number] JOCELYNE 6.73 mls/hr Protocol Titration 1.5 MCG/KG/MIN Vancomycin HCl 1,500 mg in 500 mls @ 250 mls/hr 01/24/25 19:00 01/24/25 20:28 Vancomycin 1,500 Mg/Ns 500 Ml IVPB Infused Q18H JOCELYNE Infusion Lactated Ringer's 1,000 mls @ 75 mls/hr 01/24/25 10:00 01/24/25 23:45 Lr - Lactated Ringers Iv IV CONT 75 mls/hr .[id number] JOCELYNE Administration Midazolam HCl 100 mg in 100 mls @ 1 mls/hr 01/24/25 12:20 01/25/25 10:00 Versed 100 Mg/Ns 100 Ml IV CONT 1 mg/hr .Q72H JOCELYNE 1 mls/hr Protocol Titration 1 MG/HR Lidocaine HCl/Dextrose 2 gm in 500 mls @ 15 mls/hr 01/24/25 13:30 01/25/25 10:00 Lidocaine In D5w 4 Mg/Ml IV CONT 1 mg/min .Q24H JOCELYNE 15 mls/hr 1 MG/MIN Infusion Multi-Ingred Cream/Lotion/Oil/Oint 1 applic 01/24/25 09:00 01/25/25 08:06 Mineral Oil/White Petrolatum Ointment EACH EYE 1 applic Q12HR JOCELYNE Administration Pantoprazole Sodium 40 mg 01/24/25 09:00 01/25/25 08:06 Pantoprazole Sodium Iv 40 Mg Vial IV PUSH 40 mg DAILY JOCELYNE Administration Perflutren Lipid Microsphere 0 ml 01/24/25 11:06 Perflutren Lipid Microspheres 1.5 Ml Vial Diluted To 10 Ml Total Volume IV PUSH 01/27/25 11:06 ONCE PRN adequate visualization Protocol Sodium Chloride 10 ml 01/24/25 06:00 01/25/25 05:59 Central Line Flush IV PUSH 10 ml Q8HR JOCELYNE Administration Sodium Chloride 20 ml 01/23/25 22:48 Central Line Flush IV PUSH PRN PRN after blood draws Radiology Results: ITS Impressions Head CT 01/23/25 19:11 IMPRESSION: No acute intracranial hemorrhage or extra axial fluid collections. Bilateral mastoiditis. All CT scans at this facility are performed using low dose modulation techniques as appropriate to perform exam including the following: automated exposure control; use of iterative reconstruction technique; adjustment of the mA and/or kV according to patient size (this includes techniques or standardized protocols for targeted exams where dose is matched to indication/reason for exam). Chest/Abdomen/Pelvis CT 01/23/25 19:16 IMPRESSION: Bilateral lower lobe consolidation may represent pneumonia. No acute abdominal or pelvic findings. All CT scans at this facility are performed using low dose modulation techniques as appropriate to perform exam including the following: automated exposure control; use of iterative reconstruction technique; adjustment of the mA and/or kV according to patient size (this includes techniques or standardized protocols for targeted exams where dose is matched to indication/reason for exam). Venous Doppler Study 01/24/25 11:45 IMPRESSION: 1. No DVT either leg. Ankle Brachial Index 01/24/25 11:52 IMPRESSION: 1. Artery pressures and the pressures at the right and left brachial, posterior tibial and dorsalis pedis arteries were unable to be obtained likely due to markedly increased pressures with right and left great toe pressures of 212 and 214 mmHg respectively. Chest X-Ray 01/25/25 07:38 IMPRESSION: 1. Worsening right lower lobe atelectasis and/or airspace disease with effusion. 2. Persistent left lower lobe atelectasis and/or airspace disease. Labs Labs: Laboratory Results - last 24 hr 01/24/25 01/24/25 01/24/25 08:29 09:22 10:02 WBC RBC Hgb Hct MCV MCH MCHC RDW Plt Count MPV Immature Gran % (Auto) Neut % (Auto) Lymph % (Auto) Crosby % (Auto) Eos % (Auto) Baso % (Auto) Lymph # (Auto) [place] # (Auto) Eos # (Auto) Baso # (Auto) Abs Immat Gran (auto) Absolute Neuts (auto) Absolute Nucleated RBC Nucleated RBC % PT INR APTT Puncture Site ABG pH ABG pCO2 ABG pO2 ABG PO2/FiO2 Ratio ABG HCO3 ABG O2 Saturation ABG O2 Content ABG Base Excess A-a Gradient Oxyhemoglobin Carboxyhemoglobin Methemoglobin Reduced Hemoglobin Total Hemoglobin O2 Delivery Device O2 Liters/Min Minute Volume Vent Rate Vent Mode FiO2 Tidal Volume PEEP Peak Inspir Pressure Pressure Support Sodium Potassium Chloride Carbon Dioxide Anion Gap BUN Creatinine Estim Creat Clear Calc Estimated GFR Glucose POC Capillary Glucose 144 H 130 H 139 H Lactic Acid Calcium Phosphorus Magnesium Total Bilirubin AST ALT Alkaline Phosphatase Total Creatine Kinase Total Protein Albumin 01/24/25 01/24/25 01/24/25 11:15 11:17 11:28 WBC 12.8 H RBC 4.72 Hgb 15.9 Hct 47.4 MCV 100.4 H MCH 33.7 MCHC 33.5 RDW 13.2 Plt Count 221 MPV 10.2 Immature Gran % (Auto) Neut % (Auto) Lymph % (Auto) [place] % (Auto) Eos % (Auto) Baso % (Auto) Lymph # (Auto) [place] # (Auto) Eos # (Auto) Baso # (Auto) Abs Immat Gran (auto) Absolute Neuts (auto) Absolute Nucleated RBC Nucleated RBC % PT 17.1 H INR 1.4 APTT 105.0 H Puncture Site Left radial ABG pH 7.393 ABG pCO2 34.3 L ABG pO2 58.3 L ABG PO2/FiO2 Ratio 1.17 ABG HCO3 20.4 L ABG O2 Saturation 90.4 L ABG O2 Content 21.0 ABG Base Excess -3.5 A-a Gradient 259.6 Oxyhemoglobin 88.6 L Carboxyhemoglobin 0.7 Methemoglobin 0.0 Reduced Hemoglobin 10.7 H Total Hemoglobin 16.9 O2 Delivery Device Ventilator O2 Liters/Min Not Reportable Minute Volume Not Reportable Vent Rate 18 Vent Mode Assist control FiO2 50 Tidal Volume 420 PEEP 5 Peak Inspir Pressure Not Reportable Pressure Support Not Reportable Sodium 135 L Potassium 3.3 L Chloride 101 Carbon Dioxide 26 Anion Gap 8 BUN 12 Creatinine 1.07 Estim Creat Clear Calc 75 Estimated GFR > 60 Glucose 172 H POC Capillary Glucose 208 H Lactic Acid 1.9 Calcium 8.3 L Phosphorus 3.7 Magnesium Total Bilirubin AST ALT Alkaline Phosphatase Total Creatine Kinase 359 H Total Protein Albumin 01/24/25 01/24/25 01/24/25 13:08 14:08 15:10 WBC RBC Hgb Hct MCV MCH MCHC RDW Plt Count MPV Immature Gran % (Auto) Neut % (Auto) Lymph % (Auto) [place] % (Auto) Eos % (Auto) Baso % (Auto) Lymph # (Auto) [place] # (Auto) Eos # (Auto) Baso # (Auto) Abs Immat Gran (auto) Absolute Neuts (auto) Absolute Nucleated RBC Nucleated RBC % PT INR APTT Puncture Site ABG pH ABG pCO2 ABG pO2 ABG PO2/FiO2 Ratio ABG HCO3 ABG O2 Saturation ABG O2 Content ABG Base Excess A-a Gradient Oxyhemoglobin Carboxyhemoglobin Methemoglobin Reduced Hemoglobin Total Hemoglobin O2 Delivery Device O2 Liters/Min Minute Volume Vent Rate Vent Mode FiO2 Tidal Volume PEEP Peak Inspir Pressure Pressure Support Sodium Potassium Chloride Carbon Dioxide Anion Gap BUN Creatinine Estim Creat Clear Calc Estimated GFR Glucose POC Capillary Glucose 196 H 194 H 208 H Lactic Acid Calcium Phosphorus Magnesium Total Bilirubin AST ALT Alkaline Phosphatase Total Creatine Kinase Total Protein Albumin 01/24/25 01/24/25 01/24/25 16:00 17:10 17:53 WBC RBC Hgb Hct MCV MCH MCHC RDW Plt Count MPV Immature Gran % (Auto) Neut % (Auto) Lymph % (Auto) Cros[place] % (Auto) Eos % (Auto) Baso % (Auto) Lymph # (Auto) [place] # (Auto) Eos # (Auto) Baso # (Auto) Abs Immat Gran (auto) Absolute Neuts (auto) Absolute Nucleated RBC Nucleated RBC % PT INR APTT Puncture Site ABG pH ABG pCO2 ABG pO2 ABG PO2/FiO2 Ratio ABG HCO3 ABG O2 Saturation ABG O2 Content ABG Base Excess A-a Gradient Oxyhemoglobin Carboxyhemoglobin Methemoglobin Reduced Hemoglobin Total Hemoglobin O2 Delivery Device O2 Liters/Min Minute Volume Vent Rate Vent Mode FiO2 Tidal Volume PEEP Peak Inspir Pressure Pressure Support Sodium Potassium Chloride Carbon Dioxide Anion Gap BUN Creatinine Estim Creat Clear Calc Estimated GFR Glucose POC Capillary Glucose 192 H 165 H 200 H Lactic Acid Calcium Phosphorus Magnesium Total Bilirubin AST ALT Alkaline Phosphatase Total Creatine Kinase Total Protein Albumin 01/24/25 01/24/25 01/24/25 18:03 18:54 19:59 WBC RBC Hgb Hct MCV MCH MCHC RDW Plt Count MPV Immature Gran % (Auto) Neut % (Auto) Lymph % (Auto) [place] % (Auto) Eos % (Auto) Baso % (Auto) Lymph # (Auto) [place] # (Auto) Eos # (Auto) Baso # (Auto) Abs Immat Gran (auto) Absolute Neuts (auto) Absolute Nucleated RBC Nucleated RBC % PT INR APTT Puncture Site ABG pH ABG pCO2 ABG pO2 ABG PO2/FiO2 Ratio ABG HCO3 ABG O2 Saturation ABG O2 Content ABG Base Excess A-a Gradient Oxyhemoglobin Carboxyhemoglobin Methemoglobin Reduced Hemoglobin Total Hemoglobin O2 Delivery Device O2 Liters/Min Minute Volume Vent Rate Vent Mode FiO2 Tidal Volume PEEP Peak Inspir Pressure Pressure Support Sodium Potassium Chloride Carbon Dioxide Anion Gap BUN Creatinine Estim Creat Clear Calc Estimated GFR Glucose POC Capillary Glucose 168 H 149 H Lactic Acid 3.1 H Calcium Phosphorus Magnesium Total Bilirubin AST ALT Alkaline Phosphatase Total Creatine Kinase 390 H Total Protein Albumin 01/24/25 01/24/25 01/24/25 21:04 22:11 23:05 WBC RBC Hgb Hct MCV MCH MCHC RDW Plt Count MPV Immature Gran % (Auto) Neut % (Auto) Lymph % (Auto) Crosby % (Auto) Eos % (Auto) Baso % (Auto) Lymph # (Auto) [place] # (Auto) Eos # (Auto) Baso # (Auto) Abs Immat Gran (auto) Absolute Neuts (auto) Absolute Nucleated RBC Nucleated RBC % PT INR APTT Puncture Site ABG pH ABG pCO2 ABG pO2 ABG PO2/FiO2 Ratio ABG HCO3 ABG O2 Saturation ABG O2 Content ABG Base Excess A-a Gradient Oxyhemoglobin Carboxyhemoglobin Methemoglobin Reduced Hemoglobin Total Hemoglobin O2 Delivery Device O2 Liters/Min Minute Volume Vent Rate Vent Mode FiO2 Tidal Volume PEEP Peak Inspir Pressure Pressure Support Sodium Potassium Chloride Carbon Dioxide Anion Gap BUN Creatinine Estim Creat Clear Calc Estimated GFR Glucose POC Capillary Glucose 126 H 122 H 146 H Lactic Acid Calcium Phosphorus Magnesium Total Bilirubin AST ALT Alkaline Phosphatase Total Creatine Kinase Total Protein Albumin 01/24/25 01/25/25 01/25/25 23:41 00:00 00:05 WBC 12.1 H RBC 4.84 Hgb 16.2 Hct 47.0 MCV 97.1 MCH 33.5 MCHC 34.5 RDW 13.2 Plt Count 204 MPV 9.9 Immature Gran % (Auto) Neut % (Auto) Lymph % (Auto) Crosby % (Auto) Eos % (Auto) Baso % (Auto) Lymph # (Auto) Cros[place] # (Auto) Eos # (Auto) Baso # (Auto) Abs Immat Gran (auto) Absolute Neuts (auto) Absolute Nucleated RBC Nucleated RBC % PT 16.3 H INR 1.3 APTT Puncture Site Left brachial ABG pH 7.458 H ABG pCO2 27.8 L ABG pO2 73.1 L ABG PO2/FiO2 Ratio 1.22 ABG HCO3 19.2 L ABG O2 Saturation 95.6 ABG O2 Content 21.8 ABG Base Excess -2.9 A-a Gradient 324.1 Oxyhemoglobin 94.1 Carboxyhemoglobin Methemoglobin Reduced Hemoglobin Total Hemoglobin 16.5 O2 Delivery Device Ventilator O2 Liters/Min Not Reportable Minute Volume Not Reportable Vent Rate 18 Vent Mode Cmv FiO2 60 Tidal Volume 420 PEEP 8 Peak Inspir Pressure Not Reportable Pressure Support Not Reportable Sodium 134 L Potassium 2.8 L* Chloride 103 Carbon Dioxide 26 Anion Gap 5 BUN 12 Creatinine 0.92 Estim Creat Clear Calc 86 Estimated GFR > 60 Glucose 132 H POC Capillary Glucose 143 H Lactic Acid 2.2 H Calcium 8.1 L Phosphorus 2.9 Magnesium Total Bilirubin AST ALT Alkaline Phosphatase Total Creatine Kinase 307 H Total Protein Albumin 01/25/25 01/25/2525 01:06 02:04 03:13 WBC RBC Hgb Hct MCV MCH MCHC RDW Plt Count MPV Immature Gran % (Auto) Neut % (Auto) Lymph % (Auto) Crosby % (Auto) Eos % (Auto) Baso % (Auto) Lymph # (Auto) [place] # (Auto) Eos # (Auto) Baso # (Auto) Abs Immat Gran (auto) Absolute Neuts (auto) Absolute Nucleated RBC Nucleated RBC % PT INR APTT Puncture Site ABG pH ABG pCO2 ABG pO2 ABG PO2/FiO2 Ratio ABG HCO3 ABG O2 Saturation ABG O2 Content ABG Base Excess A-a Gradient Oxyhemoglobin Carboxyhemoglobin Methemoglobin Reduced Hemoglobin Total Hemoglobin O2 Delivery Device O2 Liters/Min Minute Volume Vent Rate Vent Mode FiO2 Tidal Volume PEEP Peak Inspir Pressure Pressure Support Sodium Potassium Chloride Carbon Dioxide Anion Gap BUN Creatinine Estim Creat Clear Calc Estimated GFR Glucose POC Capillary Glucose 136 H 123 H 121 H Lactic Acid Calcium Phosphorus Magnesium Total Bilirubin AST ALT Alkaline Phosphatase Total Creatine Kinase Total Protein Albumin 01/25/25 01/25/25 01/25/25 04:05 04:32 05:06 WBC 13.4 H RBC 4.94 Hgb 16.6 Hct 47.9 MCV 97.0 MCH 33.6 MCHC 34.7 RDW 13.2 Plt Count 226 MPV 9.9 Immature Gran % (Auto) 0.4 Neut % (Auto) 73.5 H Lymph % (Auto) 16.9 L Crosby % (Auto) 8.5 Eos % (Auto) 0.4 Baso % (Auto) 0.3 Lymph # (Auto) 2.26 Crosby # (Auto) 1.1 H Eos # (Auto) 0.1 Baso # (Auto) 0.0 Abs Immat Gran (auto) 0.06 H Absolute Neuts (auto) 9.8 H Absolute Nucleated RBC 0.000 Nucleated RBC % 0.0 PT INR APTT Puncture Site Right radial ABG pH 7.421 ABG pCO2 33.5 L ABG pO2 72.4 L ABG PO2/FiO2 Ratio 1.21 ABG HCO3 21.3 L ABG O2 Saturation 95.0 ABG O2 Content 22.7 H ABG Base Excess -2.1 A-a Gradient 318.6 Oxyhemoglobin 93.6 Carboxyhemoglobin 0.7 Methemoglobin 0.2 Reduced Hemoglobin 5.5 H Total Hemoglobin 17.3 O2 Delivery Device Ventilator O2 Liters/Min Not Reportable Minute Volume Not Reportable Vent Rate 18 Vent Mode Cmv FiO2 60 Tidal Volume 420 PEEP 5 Peak Inspir Pressure Not Reportable Pressure Support Not Reportable Sodium 135 L Potassium 3.0 L Chloride 104 Carbon Dioxide 26 Anion Gap 5 BUN 12 Creatinine 0.94 Estim Creat Clear Calc 85 Estimated GFR > 60 Glucose 119 H POC Capillary Glucose 131 H Lactic Acid 2.1 H Calcium 8.1 L Phosphorus 3.2 Magnesium 2.1 Total Bilirubin 0.9 AST 77 H ALT 52 H Alkaline Phosphatase 65 Total Creatine Kinase 250 H Total Protein 6.2 L Albumin 3.3 L 01/25/25 01/25/25 01/25/25 05:07 05:17 06:08 WBC RBC Hgb Hct MCV MCH MCHC RDW Plt Count MPV Immature Gran % (Auto) Neut % (Auto) Lymph % (Auto) Cros[place] % (Auto) Eos % (Auto) Baso % (Auto) Lymph # (Auto) [place] # (Auto) Eos # (Auto) Baso # (Auto) Abs Immat Gran (auto) Absolute Neuts (auto) Absolute Nucleated RBC Nucleated RBC % PT INR APTT 179.5 H* Puncture Site ABG pH ABG pCO2 ABG pO2 ABG PO2/FiO2 Ratio ABG HCO3 ABG O2 Saturation ABG O2 Content ABG Base Excess A-a Gradient Oxyhemoglobin Carboxyhemoglobin Methemoglobin Reduced Hemoglobin Total Hemoglobin O2 Delivery Device O2 Liters/Min Minute Volume Vent Rate Vent Mode FiO2 Tidal Volume PEEP Peak Inspir Pressure Pressure Support Sodium Potassium Chloride Carbon Dioxide Anion Gap BUN Creatinine Estim Creat Clear Calc Estimated GFR Glucose POC Capillary Glucose 122 H 136 H Lactic Acid Calcium Phosphorus Magnesium Total Bilirubin AST ALT Alkaline Phosphatase Total Creatine Kinase Total Protein Albumin 01/25/25 01/25/25 01/25/25 07:08 07:24 08:00 WBC RBC Hgb Hct MCV MCH MCHC RDW Plt Count MPV Immature Gran % (Auto) Neut % (Auto) Lymph % (Auto) [place] % (Auto) Eos % (Auto) Baso % (Auto) Lymph # (Auto) [place] # (Auto) Eos # (Auto) Baso # (Auto) Abs Immat Gran (auto) Absolute Neuts (auto) Absolute Nucleated RBC Nucleated RBC % PT INR APTT Puncture Site ABG pH ABG pCO2 ABG pO2 ABG PO2/FiO2 Ratio ABG HCO3 ABG O2 Saturation ABG O2 Content ABG Base Excess A-a Gradient Oxyhemoglobin Carboxyhemoglobin Methemoglobin Reduced Hemoglobin Total Hemoglobin O2 Delivery Device O2 Liters/Min Minute Volume Vent Rate Vent Mode FiO2 Tidal Volume PEEP Peak Inspir Pressure Pressure Support Sodium Potassium Chloride Carbon Dioxide Anion Gap BUN Creatinine Estim Creat Clear Calc Estimated GFR Glucose POC Capillary Glucose 131 H 140 H 136 H Lactic Acid Calcium Phosphorus Magnesium Total Bilirubin AST ALT Alkaline Phosphatase Total Creatine Kinase Total Protein Albumin 01/25/25 01/25/25 08:54 10:04 WBC RBC Hgb Hct MCV MCH MCHC RDW Plt Count MPV Immature Gran % (Auto) Neut % (Auto) Lymph % (Auto) [place] % (Auto) Eos % (Auto) Baso % (Auto) Lymph # (Auto) [place] # (Auto) Eos # (Auto) Baso # (Auto) Abs Immat Gran (auto) Absolute Neuts (auto) Absolute Nucleated RBC Nucleated RBC % PT INR APTT Puncture Site ABG pH ABG pCO2 ABG pO2 ABG PO2/FiO2 Ratio ABG HCO3 ABG O2 Saturation ABG O2 Content ABG Base Excess A-a Gradient Oxyhemoglobin Carboxyhemoglobin Methemoglobin Reduced Hemoglobin Total Hemoglobin O2 Delivery Device O2 Liters/Min Minute Volume Vent Rate Vent Mode FiO2 Tidal Volume PEEP Peak Inspir Pressure Pressure Support Sodium Potassium Chloride Carbon Dioxide Anion Gap BUN Creatinine Estim Creat Clear Calc Estimated GFR Glucose POC Capillary Glucose 140 H 136 H Lactic Acid Calcium Phosphorus Magnesium Total Bilirubin AST ALT Alkaline Phosphatase Total Creatine Kinase Total Protein Albumin
[2025-01-25 11:18] LABS: Hematocrit 47.0 % (42.0-52.0); Hemoglobin 16.1 g/dL (14.0-18.0); Mean Corpuscular HGB Conc 34.3 g/dl (32-36); Mean Corpuscular Hemoglobin 33.4 pg (26-34); Mean Corpuscular Volume 97.5 fl (80-100); Platelet Count Result 205 k/mm3 (150-375); Red Blood Count 4.82 M/mm3 (4.6-6.20); White Blood Count 11.3 K/mm3 (4.5-10.0)
--- NOTE | 2025-01-25 11:19 | WPDINTPN2 ---
Assessment and Plan Assessment and Plan (1) Acute respiratory failure: Code(s): J96.00 - Acute respiratory failure, unspecified whether with hypoxia or hypercapnia Status: Acute Assessment and Plan: Acute respiratory failure likely related to cardiac arrest. Also pulmonary edema, pneumonia as seen on CT chest -intubated on 01/23/2025 -currently on CMV mode of ventilation, peep of 5, 40% FiO2 -chest x-ray and ABGs reviewed -continue bronchodilator -sedated with fentanyl, propofol -on Nimbex infusion for shivering (2) Cardiac arrest with ventricular fibrillation: Code(s): I46.9 - Cardiac arrest, cause unspecified; I49.01 - Ventricular fibrillation Status: Acute Assessment and Plan: 01/23: Patient presented the ED with dizziness and nausea. While he was in the ER waiting room, went unresponsive, was in VFib arrest -status post VFib cardiac arrest, requiring defibrillation x1, epinephrine x1 and CPR before ROSC. -patient on target temperature management -cardiology following the patient, started patient on Coreg -patient also on amiodarone infusion -will require ischemic workup once he is off target temperature management -will obtain echo once he is rewarmed -elevated troponins, continue heparin infusion -started on aspirin 81 mg -on lidocaine infusion for arrhythmias, 01/25: Coronary angiogram likely today per Cardiology (3) Mixed hyperlipidemia: Code(s): E78.2 - Mixed hyperlipidemia Status: Acute Assessment and Plan: Contain atorvastatin (4) Chronic atrial fibrillation: Code(s): I48.20 - Chronic atrial fibrillation, unspecified Status: Acute Assessment and Plan: Currently in ventricular bigeminy, will hold amiodarone infusion -hold Coreg -continue heparin infusion Plan DVT prophylaxis: Heparin infusion Stress ulcer prophylaxis: Protonix Nutrition: NPO Code Status: Full code Critical Care Time Spent: 35 minutes Discussed with cardiology Will update family when available Due to a high probability of clinically significant, life threatening deterioration, the patient required my highest level of preparedness to intervene emergently and I personally spent this critical care time directly and personally managing the patient. This critical care time included obtaining a history; examining the patient; pulse oximetry; ordering and review of studies; arranging urgent treatment with development of a management plan; evaluation of patient's response to treatment; frequent reassessment; and discussions with other providers. It was exclusive of separately billable procedures and treating other patients and teaching time. Please see Assessment and Plan section and the rest of the note for further information on patient assessment and treatment This dictation may have been done utilizing a voice recognition system. Attempts have been made to correct errors. However, there may be uncorrected grammatical, spelling, and recognitions errors present. Subjective Date/time seen: 01/25/25 11:19 Interval history: Reason for consult: Cardiac arrest, ventricular fibrillation, respiratory failure post cardiac arrest, presented with dizziness along with nausea to the ER on 01/23/2025 01/25/2025: Patient seen and examined the ICU, remains intubated on CMV mode of ventilation, peep of 8, 60% FiO2. Sedated with fentanyl, Versed, Nimbex infusion. Patient on target temperature management, will start rewarming at 12 noon today. On heparin and lidocaine infusion, sinus bradycardia. good UO, hemodynamically stable Review of Systems Review of Systems: ROS unobtainable: Yes unobtainable due to endotracheal tube, unobtainable due to medical condition and unobtainable due to mental status Exam Narrative: General: Intubated, sedated and on Nimbex infusion HEENT:? Pupils equal and reactive, sclera is clear, ETT in place Neck:? Supple Respiratory:? Coarse breath sounds bilaterally, decreased at bases, no wheeze Cardiac:? Irregularly irregular rhythm Abdomen:? Soft, nontender, nondistended, hypoactive bowel sound Extremities:? Trace edema bilaterally, palpable pulses. Blistering noted on the right hand Neuro:? Patient is intubated, sedated, on Nimbex infusion Skin:? No lesions noted Psych:? Unable to assess at this time Objective Data Vital Signs Vital Signs: Vital Signs - 24 hr 01/24/25 11:28 01/24/25 11:29 01/24/25 11:52 Temperature Pulse Rate 36 L 62 Respiratory Rate Blood Pressure 182/75 H Pulse Oximetry 92 Oxygen Delivery Mechanical Ventilation Mechanical Ventilation Fraction of Inspired Oxygen 50 60 01/24/25 12:00 01/24/25 12:00 01/24/25 12:00 Temperature 92.2 F L 92.2 F L Pulse Rate 29 L 36 L 36 L Respiratory Rate 18 18 18 Blood Pressure 182/75 H 182/76 H Pulse Oximetry 95 95 Oxygen Delivery Fraction of Inspired Oxygen 01/24/25 12:00 01/24/25 12:00 01/24/25 12:00 Temperature Pulse Rate 36 L Respiratory Rate 18 Blood Pressure Pulse Oximetry 95 Oxygen Delivery Mechanical Ventilation Fraction of Inspired Oxygen 60 60 01/24/25 12:00 01/24/25 12:00 01/24/25 12:25 Temperature Pulse Rate 36 L 36 L 29 L Respiratory Rate 18 18 Blood Pressure 182/75 H Pulse Oximetry Oxygen Delivery Fraction of Inspired Oxygen 01/24/25 12:26 01/24/25 12:35 01/24/25 13:00 Temperature 91.3 F L 90.5 F L Pulse Rate 29 L 31 L 40 L Respiratory Rate 18 18 Blood Pressure 158/81 H 186/85 H 199/89 H Pulse Oximetry 92 95 Oxygen Delivery Fraction of Inspired Oxygen 01/24/25 13:00 01/24/25 14:00 01/24/25 14:00 Temperature 90.5 F L Pulse Rate 40 L 61 61 Respiratory Rate 18 18 18 Blood Pressure 199/89 H Pulse Oximetry 95 Oxygen Delivery Fraction of Inspired Oxygen 01/24/25 14:00 01/24/25 14:00 01/24/25 14:00 Temperature 89.8 F L 89.8 F L Pulse Rate 61 61 61 Respiratory Rate 18 18 Blood Pressure 202/107 H 202/107 H Pulse Oximetry 96 96 Oxygen Delivery Fraction of Inspired Oxygen 01/24/25 14:00 01/24/25 14:03 01/24/25 14:03 Temperature Pulse Rate 36 L 64 64 Respiratory Rate 18 18 Blood Pressure 202/107 H Pulse Oximetry 96 Oxygen Delivery Mechanical Ventilation Fraction of Inspired Oxygen 60 01/24/25 14:03 01/24/25 14:12 01/24/25 14:25 Temperature Pulse Rate 64 64 Respiratory Rate 18 Blood Pressure 195/106 H 188/116 H Pulse Oximetry Oxygen Delivery Fraction of Inspired Oxygen 01/24/25 15:00 01/24/25 15:00 01/24/25 16:00 Temperature 90 F L 90 F L 90.4 F L Pulse Rate 68 68 62 Respiratory Rate 18 18 18 Blood Pressure 165/96 H 165/96 H 150/92 H Pulse Oximetry 94 96 97 Oxygen Delivery Fraction of Inspired Oxygen 01/24/25 16:00 01/24/25 16:00 01/24/25 16:00 Temperature 90.4 F L Pulse Rate 62 Respiratory Rate 18 Blood Pressure 150/92 H Pulse Oximetry 97 94 Oxygen Delivery Mechanical Ventilation Fraction of Inspired Oxygen 60 60 01/24/25 16:00 01/24/25 16:00 01/24/25 16:00 Temperature Pulse Rate 66 65 65 Respiratory Rate 18 Blood Pressure 150/92 H Pulse Oximetry Oxygen Delivery Fraction of Inspired Oxygen 01/24/25 16:00 01/24/25 16:14 01/24/25 16:14 Temperature Pulse Rate 65 62 62 Respiratory Rate 18 18 18 Blood Pressure 150/92 H 150/92 H Pulse Oximetry Oxygen Delivery Fraction of Inspired Oxygen 01/24/25 17:00 01/24/25 17:00 01/24/25 17:20 Temperature 91 F L 91 F L Pulse Rate 56 L 56 L 66 Respiratory Rate 18 18 Blood Pressure 130/77 130/77 Pulse Oximetry 96 96 97 Oxygen Delivery Mechanical Ventilation Fraction of Inspired Oxygen 60 01/24/25 18:00 01/24/25 18:00 01/24/25 18:00 Temperature 91.7 F L 91.7 F L Pulse Rate 53 L 53 L 53 L Respiratory Rate 18 18 Blood Pressure 103/74 129/94 H Pulse Oximetry 100 100 Oxygen Delivery Fraction of Inspired Oxygen 01/24/25 18:00 01/24/25 18:00 01/24/25 18:00 Temperature Pulse Rate 63 63 63 Respiratory Rate 18 18 Blood Pressure 129/94 H Pulse Oximetry Oxygen Delivery Fraction of Inspired Oxygen 01/24/25 18:58 01/24/25 18:58 01/24/25 19:19 Temperature 92 F L 92 F L Pulse Rate 53 L 53 L 72 Respiratory Rate 18 18 18 Blood Pressure 94/72 L 97/75 L Pulse Oximetry 100 100 Oxygen Delivery Fraction of Inspired Oxygen 01/24/25 19:23 01/24/25 19:30 01/24/25 20:00 Temperature 92.8 F L Pulse Rate 70 71 74 Respiratory Rate 18 18 Blood Pressure 140/89 Pulse Oximetry 100 94 Oxygen Delivery Mechanical Ventilation Fraction of Inspired Oxygen 60 01/24/25 20:00 01/24/25 20:00 01/24/25 20:00 Temperature 92.8 F L Pulse Rate 72 Respiratory Rate 18 Blood Pressure 140/89 Pulse Oximetry 96 96 Oxygen Delivery Mechanical Ventilation Fraction of Inspired Oxygen 60 60 01/24/25 20:00 01/24/25 20:00 01/24/25 20:00 Temperature Pulse Rate 75 75 75 Respiratory Rate 18 18 Blood Pressure 140/89 140/89 Pulse Oximetry Oxygen Delivery Fraction of Inspired Oxygen 01/24/25 20:00 01/24/25 20:00 01/24/25 21:00 Temperature 92.7 F L Pulse Rate 75 72 70 Respiratory Rate 18 18 Blood Pressure 130/90 Pulse Oximetry 95 Oxygen Delivery Fraction of Inspired Oxygen 01/24/25 21:00 01/24/25 22:00 01/24/25 22:00 Temperature 92.7 F L 92.0 F L 92.0 F L Pulse Rate 70 65 65 Respiratory Rate 18 18 18 Blood Pressure 130/90 127/90 127/90 Pulse Oximetry 95 96 96 Oxygen Delivery Fraction of Inspired Oxygen 01/24/25 22:00 01/24/25 22:00 01/24/25 22:00 Temperature Pulse Rate 65 65 65 Respiratory Rate 18 Blood Pressure 127/90 127/90 Pulse Oximetry Oxygen Delivery Fraction of Inspired Oxygen 01/24/25 22:00 01/24/25 22:00 01/24/25 22:49 Temperature Pulse Rate 65 65 61 Respiratory Rate 18 18 Blood Pressure Pulse Oximetry 97 Oxygen Delivery Mechanical Ventilation Fraction of Inspired Oxygen 60 01/24/25 23:00 01/24/25 23:00 01/24/25 23:46 Temperature 91.0 F L 90.9 F L Pulse Rate 60 60 48 L Respiratory Rate 18 18 18 Blood Pressure 133/95 H 133/95 H Pulse Oximetry 97 97 Oxygen Delivery Fraction of Inspired Oxygen 01/25/25 00:00 01/25/25 00:00 01/25/25 00:00 Temperature 90.0 F L 90.0 F L Pulse Rate 52 L 52 L Respiratory Rate 18 18 Blood Pressure 105/81 105/81 Pulse Oximetry 97 97 97 Oxygen Delivery Mechanical Ventilation Fraction of Inspired Oxygen 60 01/25/25 00:00 01/25/25 00:00 01/25/25 00:00 Temperature Pulse Rate 52 L 52 L Respiratory Rate 18 Blood Pressure 105/81 105/81 Pulse Oximetry Oxygen Delivery Fraction of Inspired Oxygen 60 01/25/25 00:00 01/25/25 00:00 01/25/25 00:00 Temperature Pulse Rate 52 L 52 L 51 L Respiratory Rate 18 18 Blood Pressure Pulse Oximetry Oxygen Delivery Fraction of Inspired Oxygen 01/25/25 01:00 01/25/25 01:00 01/25/25 01:00 Temperature 90.2 F L 90.2 F L Pulse Rate 52 L 52 L 52 L Respiratory Rate 18 18 18 Blood Pressure 106/74 106/74 Pulse Oximetry 97 97 Oxygen Delivery Fraction of Inspired Oxygen 01/25/25 01:01 01/25/25 01:07 01/25/25 02:00 Temperature 91.4 F L Pulse Rate 51 L 52 L 58 L Respiratory Rate 18 Blood Pressure 106/74 100/76 Pulse Oximetry 97 99 Oxygen Delivery Mechanical Ventilation Fraction of Inspired Oxygen 60 01/25/25 02:00 01/25/25 02:00 01/25/25 02:00 Temperature 91.4 F L Pulse Rate 58 L 58 L 58 L Respiratory Rate 18 18 Blood Pressure 100/76 100/76 100/76 Pulse Oximetry 99 Oxygen Delivery Fraction of Inspired Oxygen 01/25/25 02:00 01/25/25 02:00 01/25/25 02:00 Temperature Pulse Rate 58 L 58 L 58 L Respiratory Rate 18 18 Blood Pressure Pulse Oximetry Oxygen Delivery Fraction of Inspired Oxygen 01/25/25 03:00 01/25/25 03:00 01/25/25 04:00 Temperature 92.9 F L 92.9 F L Pulse Rate 70 70 78 Respiratory Rate 18 18 18 Blood Pressure 138/90 138/90 140/100 H Pulse Oximetry 99 99 Oxygen Delivery Fraction of Inspired Oxygen 01/25/25 04:00 01/25/25 04:00 01/25/25 04:00 Temperature 93.2 F L 93.2 F L Pulse Rate 78 78 Respiratory Rate 18 18 Blood Pressure 140/100 H 140/100 H Pulse Oximetry 98 98 98 Oxygen Delivery Mechanical Ventilation Fraction of Inspired Oxygen 60 01/25/25 04:00 01/25/25 04:00 01/25/25 04:00 Temperature Pulse Rate 77 78 Respiratory Rate Blood Pressure 140/100 H Pulse Oximetry Oxygen Delivery Fraction of Inspired Oxygen 60 01/25/25 04:00 01/25/25 04:00 01/25/25 04:10 Temperature Pulse Rate 78 78 73 Respiratory Rate 18 18 18 Blood Pressure 141/96 H Pulse Oximetry Oxygen Delivery Fraction of Inspired Oxygen 01/25/25 04:10 01/25/25 05:00 01/25/25 05:00 Temperature 92.3 F L 92.8 F L Pulse Rate 73 64 64 Respiratory Rate 18 18 18 Blood Pressure 141/96 H 134/105 H 134/105 H Pulse Oximetry 98 98 Oxygen Delivery Fraction of Inspired Oxygen 01/25/25 05:14 01/25/25 06:00 01/25/25 06:00 Temperature 91.7 F L 91.7 F L Pulse Rate 64 55 L 55 L Respiratory Rate 18 18 Blood Pressure 139/92 H 139/92 H Pulse Oximetry 99 100 100 Oxygen Delivery Mechanical Ventilation Fraction of Inspired Oxygen 60 01/25/25 06:00 01/25/25 06:00 01/25/25 06:00 Temperature Pulse Rate 55 L 57 L 57 L Respiratory Rate 18 18 Blood Pressure 139/92 H Pulse Oximetry Oxygen Delivery Fraction of Inspired Oxygen 01/25/25 06:00 01/25/25 07:00 01/25/25 08:00 Temperature 90.5 F L 90.5 F L Pulse Rate 57 L 49 L 52 L Respiratory Rate 18 18 18 Blood Pressure 119/89 116/79 Pulse Oximetry 100 100 Oxygen Delivery Fraction of Inspired Oxygen 01/25/25 08:00 01/25/25 08:00 01/25/25 08:00 Temperature Pulse Rate 55 L Respiratory Rate Blood Pressure 116/79 Pulse Oximetry Oxygen Delivery Mechanical Ventilation Fraction of Inspired Oxygen 60 60 01/25/25 08:00 01/25/25 08:00 01/25/25 08:00 Temperature Pulse Rate 55 L 55 L 55 L Respiratory Rate 18 18 18 Blood Pressure 116/79 Pulse Oximetry Oxygen Delivery Fraction of Inspired Oxygen 01/25/25 08:00 01/25/25 08:21 01/25/25 08:21 Temperature Pulse Rate 52 L 52 L 52 L Respiratory Rate 18 Blood Pressure Pulse Oximetry 100 Oxygen Delivery Mechanical Ventilation Fraction of Inspired Oxygen 60 01/25/25 08:30 01/25/25 09:00 01/25/25 10:00 Temperature 91.4 F L 91.7 F L Pulse Rate 55 L 57 L 56 L Respiratory Rate 18 18 18 Blood Pressure 137/93 H 137/85 Pulse Oximetry 100 100 Oxygen Delivery Fraction of Inspired Oxygen 01/25/25 10:00 01/25/25 10:00 01/25/25 10:00 Temperature Pulse Rate 56 L 56 L 56 L Respiratory Rate 18 18 Blood Pressure 137/85 137/85 Pulse Oximetry Oxygen Delivery Fraction of Inspired Oxygen 01/25/25 10:00 01/25/25 10:00 01/25/25 10:00 Temperature 91.7 F L Pulse Rate 56 L 55 L 56 L Respiratory Rate 18 18 Blood Pressure 137/85 Pulse Oximetry 100 Oxygen Delivery Fraction of Inspired Oxygen 01/25/25 11:00 Temperature 91.3 F L Pulse Rate 50 L Respiratory Rate 18 Blood Pressure 120/91 H Pulse Oximetry 100 Oxygen Delivery Fraction of Inspired Oxygen Intake/Output Intake/Output: Intake & Output 01/22/25 01/23/25 01/24/25 01/25/25 23:59 23:59 23:59 23:59 Intake Total 33.3 4480.4 766.5 Output Total 600 1635 636 Balance -566.7 2845.4 130.5 Meds/Results Medications: Active Medications Generic Name Dose Route Start Last Admin Trade Name Freq PRN Reason Stop Dose Admin Albuterol/Ipratropium 3 ml 01/24/25 02:00 01/25/25 08:20 Ipratropium 0.5 Mg/Albuterol Sulfate 2.5 Mg (Base) Ampul.Neb 3 Ml INHALATION 3 ml Q6HRT JOCELYNE Administration Aspirin 81 mg 01/24/25 12:00 01/25/25 08:06 Aspirin 81 Mg Enteric Tablet PO 81 mg QAM JOCELYNE Administration Atorvastatin Calcium 80 mg 01/24/25 21:00 01/24/25 21:22 Atorvastatin 40 Mg Tablet PO 80 mg QHS JOCELYNE Administration Carvedilol 3.125 mg 01/24/25 21:00 Carvedilol 3.125 Mg Tablet PO On Hold: 01/24/25 21:00 Q12HR JOCELYNE Heparin Sodium (Porcine) 4,000 units 01/23/25 17:10 Heparin Sodium 5,000 Units/Ml Vial IV PUSH PRN PRN aPTT less than 55 seconds Heparin Sodium (Porcine) 4,000 units 01/23/25 17:10 Heparin Sodium 5,000 Units/Ml Vial IV PUSH PRN PRN aPTT 55 - 70 seconds Hydralazine HCl 10 mg 01/24/25 11:31 01/24/25 14:05 Hydralazine Hcl 20 Mg/Ml Vial IV PUSH 10 mg Q4H PRN Administration Blood Pressure - High Heparin Sodium/Dextrose 25,000 units in 250 mls @ 7 mls/hr 01/23/25 17:10 01/25/25 08:00 Heparin Sodium/D5w 100 Units/Ml IV CONT 700 units/hr .Q24H JOCELYNE 7 mls/hr Protocol Titration 700 UNITS/HR Fentanyl Citrate 2,500 mcg in 250 mls @ 2.5 mls/hr 01/23/25 21:15 01/25/25 10:00 Fentanyl 2,500 Mcg/Ns 250 Ml IV CONT 25 mcg/hr .Q72H JOCELYNE 2.5 mls/hr Protocol Titration 25 MCG/HR Piperacillin Sod/Tazobactam 50 mls @ 100 mls/hr 01/23/25 22:00 01/25/25 10:15 Sod 3.375 gm/ Sodium Chloride IVPB Infused Q6H JOCELYNE Infusion Cisatracurium Besylate 200 mg/ 100 mls @ 6.732 mls/hr 01/23/25 22:50 01/25/25 10:00 Sodium Chloride IV CONT 1.5 mcg/kg/min .[id number] JOCELYNE 6.73 mls/hr Protocol Titration 1.5 MCG/KG/MIN Vancomycin HCl 1,500 mg in 500 mls @ 250 mls/hr 01/24/25 19:00 01/24/25 20:28 Vancomycin 1,500 Mg/Ns 500 Ml IVPB Infused Q18H JOCELYNE Infusion Lactated Ringer's 1,000 mls @ 75 mls/hr 01/24/25 10:00 01/24/25 23:45 Lr - Lactated Ringers Iv IV CONT 75 mls/hr .[id number] JOCELYNE Administration Midazolam HCl 100 mg in 100 mls @ 1 mls/hr 01/24/25 12:20 01/25/25 10:00 Versed 100 Mg/Ns 100 Ml IV CONT 1 mg/hr .Q72H JOCELYNE 1 mls/hr Protocol Titration 1 MG/HR Lidocaine HCl/Dextrose 2 gm in 500 mls @ 15 mls/hr 01/24/25 13:30 01/25/25 10:00 Lidocaine In D5w 4 Mg/Ml IV CONT 1 mg/min .Q24H JOCELYNE 15 mls/hr 1 MG/MIN Infusion Multi-Ingred Cream/Lotion/Oil/Oint 1 applic 01/24/25 09:00 01/25/25 08:06 Mineral Oil/White Petrolatum Ointment EACH EYE 1 applic Q12HR JOCELYNE Administration Pantoprazole Sodium 40 mg 01/24/25 09:00 01/25/25 08:06 Pantoprazole Sodium Iv 40 Mg Vial IV PUSH 40 mg DAILY JOCELYNE Administration Perflutren Lipid Microsphere 0 ml 01/24/25 11:06 Perflutren Lipid Microspheres 1.5 Ml Vial Diluted To 10 Ml Total Volume IV PUSH 01/27/25 11:06 ONCE PRN adequate visualization Protocol Sodium Chloride 10 ml 01/24/25 06:00 01/25/25 05:59 Central Line Flush IV PUSH 10 ml Q8HR JOCELYNE Administration Sodium Chloride 20 ml 01/23/25 22:48 Central Line Flush IV PUSH PRN PRN after blood draws Radiology Results: ITS Impressions Head CT 01/23/25 19:11 IMPRESSION: No acute intracranial hemorrhage or extra axial fluid collections. Bilateral mastoiditis. All CT scans at this facility are performed using low dose modulation techniques as appropriate to perform exam including the following: automated exposure control; use of iterative reconstruction technique; adjustment of the mA and/or kV according to patient size (this includes techniques or standardized protocols for targeted exams where dose is matched to indication/reason for exam). Chest/Abdomen/Pelvis CT 01/23/25 19:16 IMPRESSION: Bilateral lower lobe consolidation may represent pneumonia. No acute abdominal or pelvic findings. All CT scans at this facility are performed using low dose modulation techniques as appropriate to perform exam including the following: automated exposure control; use of iterative reconstruction technique; adjustment of the mA and/or kV according to patient size (this includes techniques or standardized protocols for targeted exams where dose is matched to indication/reason for exam). Venous Doppler Study 01/24/25 11:45 IMPRESSION: 1. No DVT either leg. Ankle Brachial Index 01/24/25 11:52 IMPRESSION: 1. Artery pressures and the pressures at the right and left brachial, posterior tibial and dorsalis pedis arteries were unable to be obtained likely due to markedly increased pressures with right and left great toe pressures of 212 and 214 mmHg respectively. Chest X-Ray 01/25/25 07:38 IMPRESSION: 1. Worsening right lower lobe atelectasis and/or airspace disease with effusion. 2. Persistent left lower lobe atelectasis and/or airspace disease. Labs Labs: Laboratory Results - last 24 hr 01/24/25 01/24/25 01/24/25 08:29 09:22 10:02 WBC RBC Hgb Hct MCV MCH MCHC RDW Plt Count MPV Immature Gran % (Auto) Neut % (Auto) Lymph % (Auto) [place] % (Auto) Eos % (Auto) Baso % (Auto) Lymph # (Auto) [place] # (Auto) Eos # (Auto) Baso # (Auto) Abs Immat Gran (auto) Absolute Neuts (auto) Absolute Nucleated RBC Nucleated RBC % PT INR APTT Puncture Site ABG pH ABG pCO2 ABG pO2 ABG PO2/FiO2 Ratio ABG HCO3 ABG O2 Saturation ABG O2 Content ABG Base Excess A-a Gradient Oxyhemoglobin Carboxyhemoglobin Methemoglobin Reduced Hemoglobin Total Hemoglobin O2 Delivery Device O2 Liters/Min Minute Volume Vent Rate Vent Mode FiO2 Tidal Volume PEEP Peak Inspir Pressure Pressure Support Sodium Potassium Chloride Carbon Dioxide Anion Gap BUN Creatinine Estim Creat Clear Calc Estimated GFR Glucose POC Capillary Glucose 144 H 130 H 139 H Lactic Acid Calcium Phosphorus Magnesium Total Bilirubin AST ALT Alkaline Phosphatase Total Creatine Kinase Total Protein Albumin 01/24/25 01/24/25 01/24/25 11:15 11:17 11:28 WBC 12.8 H RBC 4.72 Hgb 15.9 Hct 47.4 MCV 100.4 H MCH 33.7 MCHC 33.5 RDW 13.2 Plt Count 221 MPV 10.2 Immature Gran % (Auto) Neut % (Auto) Lymph % (Auto) [place] % (Auto) Eos % (Auto) Baso % (Auto) Lymph # (Auto) [place] # (Auto) Eos # (Auto) Baso # (Auto) Abs Immat Gran (auto) Absolute Neuts (auto) Absolute Nucleated RBC Nucleated RBC % PT 17.1 H INR 1.4 APTT 105.0 H Puncture Site Left radial ABG pH 7.393 ABG pCO2 34.3 L ABG pO2 58.3 L ABG PO2/FiO2 Ratio 1.17 ABG HCO3 20.4 L ABG O2 Saturation 90.4 L ABG O2 Content 21.0 ABG Base Excess -3.5 A-a Gradient 259.6 Oxyhemoglobin 88.6 L Carboxyhemoglobin 0.7 Methemoglobin 0.0 Reduced Hemoglobin 10.7 H Total Hemoglobin 16.9 O2 Delivery Device Ventilator O2 Liters/Min Not Reportable Minute Volume Not Reportable Vent Rate 18 Vent Mode Assist control FiO2 50 Tidal Volume 420 PEEP 5 Peak Inspir Pressure Not Reportable Pressure Support Not Reportable Sodium 135 L Potassium 3.3 L Chloride 101 Carbon Dioxide 26 Anion Gap 8 BUN 12 Creatinine 1.07 Estim Creat Clear Calc 75 Estimated GFR > 60 Glucose 172 H POC Capillary Glucose 208 H Lactic Acid 1.9 Calcium 8.3 L Phosphorus 3.7 Magnesium Total Bilirubin AST ALT Alkaline Phosphatase Total Creatine Kinase 359 H Total Protein Albumin 01/24/25 01/24/25 01/24/25 13:08 14:08 15:10 WBC RBC Hgb Hct MCV MCH MCHC RDW Plt Count MPV Immature Gran % (Auto) Neut % (Auto) Lymph % (Auto) [place] % (Auto) Eos % (Auto) Baso % (Auto) Lymph # (Auto) [place] # (Auto) Eos # (Auto) Baso # (Auto) Abs Immat Gran (auto) Absolute Neuts (auto) Absolute Nucleated RBC Nucleated RBC % PT INR APTT Puncture Site ABG pH ABG pCO2 ABG pO2 ABG PO2/FiO2 Ratio ABG HCO3 ABG O2 Saturation ABG O2 Content ABG Base Excess A-a Gradient Oxyhemoglobin Carboxyhemoglobin Methemoglobin Reduced Hemoglobin Total Hemoglobin O2 Delivery Device O2 Liters/Min Minute Volume Vent Rate Vent Mode FiO2 Tidal Volume PEEP Peak Inspir Pressure Pressure Support Sodium Potassium Chloride Carbon Dioxide Anion Gap BUN Creatinine Estim Creat Clear Calc Estimated GFR Glucose POC Capillary Glucose 196 H 194 H 208 H Lactic Acid Calcium Phosphorus Magnesium Total Bilirubin AST ALT Alkaline Phosphatase Total Creatine Kinase Total Protein Albumin 01/24/25 01/24/25 01/24/25 16:00 17:10 17:53 WBC RBC Hgb Hct MCV MCH MCHC RDW Plt Count MPV Immature Gran % (Auto) Neut % (Auto) Lymph % (Auto) [place] % (Auto) Eos % (Auto) Baso % (Auto) Lymph # (Auto) [place] # (Auto) Eos # (Auto) Baso # (Auto) Abs Immat Gran (auto) Absolute Neuts (auto) Absolute Nucleated RBC Nucleated RBC % PT INR APTT Puncture Site ABG pH ABG pCO2 ABG pO2 ABG PO2/FiO2 Ratio ABG HCO3 ABG O2 Saturation ABG O2 Content ABG Base Excess A-a Gradient Oxyhemoglobin Carboxyhemoglobin Methemoglobin Reduced Hemoglobin Total Hemoglobin O2 Delivery Device O2 Liters/Min Minute Volume Vent Rate Vent Mode FiO2 Tidal Volume PEEP Peak Inspir Pressure Pressure Support Sodium Potassium Chloride Carbon Dioxide Anion Gap BUN Creatinine Estim Creat Clear Calc Estimated GFR Glucose POC Capillary Glucose 192 H 165 H 200 H Lactic Acid Calcium Phosphorus Magnesium Total Bilirubin AST ALT Alkaline Phosphatase Total Creatine Kinase Total Protein Albumin 01/24/25 01/24/25 01/24/25 18:03 18:54 19:59 WBC RBC Hgb Hct MCV MCH MCHC RDW Plt Count MPV Immature Gran % (Auto) Neut % (Auto) Lymph % (Auto) [place] % (Auto) Eos % (Auto) Baso % (Auto) Lymph # (Auto) [place] # (Auto) Eos # (Auto) Baso # (Auto) Abs Immat Gran (auto) Absolute Neuts (auto) Absolute Nucleated RBC Nucleated RBC % PT INR APTT Puncture Site ABG pH ABG pCO2 ABG pO2 ABG PO2/FiO2 Ratio ABG HCO3 ABG O2 Saturation ABG O2 Content ABG Base Excess A-a Gradient Oxyhemoglobin Carboxyhemoglobin Methemoglobin Reduced Hemoglobin Total Hemoglobin O2 Delivery Device O2 Liters/Min Minute Volume Vent Rate Vent Mode FiO2 Tidal Volume PEEP Peak Inspir Pressure Pressure Support Sodium Potassium Chloride Carbon Dioxide Anion Gap BUN Creatinine Estim Creat Clear Calc Estimated GFR Glucose POC Capillary Glucose 168 H 149 H Lactic Acid 3.1 H Calcium Phosphorus Magnesium Total Bilirubin AST ALT Alkaline Phosphatase Total Creatine Kinase 390 H Total Protein Albumin 01/24/25 01/24/25 01/24/25 21:04 22:11 23:05 WBC RBC Hgb Hct MCV MCH MCHC RDW Plt Count MPV Immature Gran % (Auto) Neut % (Auto) Lymph % (Auto) [place] % (Auto) Eos % (Auto) Baso % (Auto) Lymph # (Auto) [place] # (Auto) Eos # (Auto) Baso # (Auto) Abs Immat Gran (auto) Absolute Neuts (auto) Absolute Nucleated RBC Nucleated RBC % PT INR APTT Puncture Site ABG pH ABG pCO2 ABG pO2 ABG PO2/FiO2 Ratio ABG HCO3 ABG O2 Saturation ABG O2 Content ABG Base Excess A-a Gradient Oxyhemoglobin Carboxyhemoglobin Methemoglobin Reduced Hemoglobin Total Hemoglobin O2 Delivery Device O2 Liters/Min Minute Volume Vent Rate Vent Mode FiO2 Tidal Volume PEEP Peak Inspir Pressure Pressure Support Sodium Potassium Chloride Carbon Dioxide Anion Gap BUN Creatinine Estim Creat Clear Calc Estimated GFR Glucose POC Capillary Glucose 126 H 122 H 146 H Lactic Acid Calcium Phosphorus Magnesium Total Bilirubin AST ALT Alkaline Phosphatase Total Creatine Kinase Total Protein Albumin 01/24/25 01/25/25 01/25/25 23:41 00:00 00:05 WBC 12.1 H RBC 4.84 Hgb 16.2 Hct 47.0 MCV 97.1 MCH 33.5 MCHC 34.5 RDW 13.2 Plt Count 204 MPV 9.9 Immature Gran % (Auto) Neut % (Auto) Lymph % (Auto) [place] % (Auto) Eos % (Auto) Baso % (Auto) Lymph # (Auto) [place] # (Auto) Eos # (Auto) Baso # (Auto) Abs Immat Gran (auto) Absolute Neuts (auto) Absolute Nucleated RBC Nucleated RBC % PT 16.3 H INR 1.3 APTT Puncture Site Left brachial ABG pH 7.458 H ABG pCO2 27.8 L ABG pO2 73.1 L ABG PO2/FiO2 Ratio 1.22 ABG HCO3 19.2 L ABG O2 Saturation 95.6 ABG O2 Content 21.8 ABG Base Excess -2.9 A-a Gradient 324.1 Oxyhemoglobin 94.1 Carboxyhemoglobin Methemoglobin Reduced Hemoglobin Total Hemoglobin 16.5 O2 Delivery Device Ventilator O2 Liters/Min Not Reportable Minute Volume Not Reportable Vent Rate 18 Vent Mode Cmv FiO2 60 Tidal Volume 420 PEEP 8 Peak Inspir Pressure Not Reportable Pressure Support Not Reportable Sodium 134 L Potassium 2.8 L* Chloride 103 Carbon Dioxide 26 Anion Gap 5 BUN 12 Creatinine 0.92 Estim Creat Clear Calc 86 Estimated GFR > 60 Glucose 132 H POC Capillary Glucose 143 H Lactic Acid 2.2 H Calcium 8.1 L Phosphorus 2.9 Magnesium Total Bilirubin AST ALT Alkaline Phosphatase Total Creatine Kinase 307 H Total Protein Albumin 01/25/25 01/25/25 01/25/25 01:06 02:04 03:13 WBC RBC Hgb Hct MCV MCH MCHC RDW Plt Count MPV Immature Gran % (Auto) Neut % (Auto) Lymph % (Auto) [place] % (Auto) Eos % (Auto) Baso % (Auto) Lymph # (Auto) [place] # (Auto) Eos # (Auto) Baso # (Auto) Abs Immat Gran (auto) Absolute Neuts (auto) Absolute Nucleated RBC Nucleated RBC % PT INR APTT Puncture Site ABG pH ABG pCO2 ABG pO2 ABG PO2/FiO2 Ratio ABG HCO3 ABG O2 Saturation ABG O2 Content ABG Base Excess A-a Gradient Oxyhemoglobin Carboxyhemoglobin Methemoglobin Reduced Hemoglobin Total Hemoglobin O2 Delivery Device O2 Liters/Min Minute Volume Vent Rate Vent Mode FiO2 Tidal Volume PEEP Peak Inspir Pressure Pressure Support Sodium Potassium Chloride Carbon Dioxide Anion Gap BUN Creatinine Estim Creat Clear Calc Estimated GFR Glucose POC Capillary Glucose 136 H 123 H 121 H Lactic Acid Calcium Phosphorus Magnesium Total Bilirubin AST ALT Alkaline Phosphatase Total Creatine Kinase Total Protein Albumin 01/25/25 01/25/25 01/25/25 04:05 04:32 05:06 WBC 13.4 H RBC 4.94 Hgb 16.6 Hct 47.9 MCV 97.0 MCH 33.6 MCHC 34.7 RDW 13.2 Plt Count 226 MPV 9.9 Immature Gran % (Auto) 0.4 Neut % (Auto) 73.5 H Lymph % (Auto) 16.9 L [place] % (Auto) 8.5 Eos % (Auto) 0.4 Baso % (Auto) 0.3 Lymph # (Auto) 2.26 [place] # (Auto) 1.1 H Eos # (Auto) 0.1 Baso # (Auto) 0.0 Abs Immat Gran (auto) 0.06 H Absolute Neuts (auto) 9.8 H Absolute Nucleated RBC 0.000 Nucleated RBC % 0.0 PT INR APTT Puncture Site Right radial ABG pH 7.421 ABG pCO2 33.5 L ABG pO2 72.4 L ABG PO2/FiO2 Ratio 1.21 ABG HCO3 21.3 L ABG O2 Saturation 95.0 ABG O2 Content 22.7 H ABG Base Excess -2.1 A-a Gradient 318.6 Oxyhemoglobin 93.6 Carboxyhemoglobin 0.7 Methemoglobin 0.2 Reduced Hemoglobin 5.5 H Total Hemoglobin 17.3 O2 Delivery Device Ventilator O2 Liters/Min Not Reportable Minute Volume Not Reportable Vent Rate 18 Vent Mode Cmv FiO2 60 Tidal Volume 420 PEEP 5 Peak Inspir Pressure Not Reportable Pressure Support Not Reportable Sodium 135 L Potassium 3.0 L Chloride 104 Carbon Dioxide 26 Anion Gap 5 BUN 12 Creatinine 0.94 Estim Creat Clear Calc 85 Estimated GFR > 60 Glucose 119 H POC Capillary Glucose 131 H Lactic Acid 2.1 H Calcium 8.1 L Phosphorus 3.2 Magnesium 2.1 Total Bilirubin 0.9 AST 77 H ALT 52 H Alkaline Phosphatase 65 Total Creatine Kinase 250 H Total Protein 6.2 L Albumin 3.3 L 01/25/25 01/25/25 01/25/25 05:07 05:17 06:08 WBC RBC Hgb Hct MCV MCH MCHC RDW Plt Count MPV Immature Gran % (Auto) Neut % (Auto) Lymph % (Auto) [place] % (Auto) Eos % (Auto) Baso % (Auto) Lymph # (Auto) [place] # (Auto) Eos # (Auto) Baso # (Auto) Abs Immat Gran (auto) Absolute Neuts (auto) Absolute Nucleated RBC Nucleated RBC % PT INR APTT 179.5 H* Puncture Site ABG pH ABG pCO2 ABG pO2 ABG PO2/FiO2 Ratio ABG HCO3 ABG O2 Saturation ABG O2 Content ABG Base Excess A-a Gradient Oxyhemoglobin Carboxyhemoglobin Methemoglobin Reduced Hemoglobin Total Hemoglobin O2 Delivery Device O2 Liters/Min Minute Volume Vent Rate Vent Mode FiO2 Tidal Volume PEEP Peak Inspir Pressure Pressure Support Sodium Potassium Chloride Carbon Dioxide Anion Gap BUN Creatinine Estim Creat Clear Calc Estimated GFR Glucose POC Capillary Glucose 122 H 136 H Lactic Acid Calcium Phosphorus Magnesium Total Bilirubin AST ALT Alkaline Phosphatase Total Creatine Kinase Total Protein Albumin 01/25/25 01/25/25 01/25/25 07:08 07:24 08:00 WBC RBC Hgb Hct MCV MCH MCHC RDW Plt Count MPV Immature Gran % (Auto) Neut % (Auto) Lymph % (Auto) [place] % (Auto) Eos % (Auto) Baso % (Auto) Lymph # (Auto) [place] # (Auto) Eos # (Auto) Baso # (Auto) Abs Immat Gran (auto) Absolute Neuts (auto) Absolute Nucleated RBC Nucleated RBC % PT INR APTT Puncture Site ABG pH ABG pCO2 ABG pO2 ABG PO2/FiO2 Ratio ABG HCO3 ABG O2 Saturation ABG O2 Content ABG Base Excess A-a Gradient Oxyhemoglobin Carboxyhemoglobin Methemoglobin Reduced Hemoglobin Total Hemoglobin O2 Delivery Device O2 Liters/Min Minute Volume Vent Rate Vent Mode FiO2 Tidal Volume PEEP Peak Inspir Pressure Pressure Support Sodium Potassium Chloride Carbon Dioxide Anion Gap BUN Creatinine Estim Creat Clear Calc Estimated GFR Glucose POC Capillary Glucose 131 H 140 H 136 H Lactic Acid Calcium Phosphorus Magnesium Total Bilirubin AST ALT Alkaline Phosphatase Total Creatine Kinase Total Protein Albumin 01/25/25 01/25/2501/25/25 08:54 10:04 11:05 WBC RBC Hgb Hct MCV MCH MCHC RDW Plt Count MPV Immature Gran % (Auto) Neut % (Auto) Lymph % (Auto) [place] % (Auto) Eos % (Auto) Baso % (Auto) Lymph # (Auto) [place] # (Auto) Eos # (Auto) Baso # (Auto) Abs Immat Gran (auto) Absolute Neuts (auto) Absolute Nucleated RBC Nucleated RBC % PT INR APTT Puncture Site ABG pH ABG pCO2 ABG pO2 ABG PO2/FiO2 Ratio ABG HCO3 ABG O2 Saturation ABG O2 Content ABG Base Excess A-a Gradient Oxyhemoglobin Carboxyhemoglobin Methemoglobin Reduced Hemoglobin Total Hemoglobin O2 Delivery Device O2 Liters/Min Minute Volume Vent Rate Vent Mode FiO2 Tidal Volume PEEP Peak Inspir Pressure Pressure Support Sodium Potassium Chloride Carbon Dioxide Anion Gap BUN Creatinine Estim Creat Clear Calc Estimated GFR Glucose POC Capillary Glucose 140 H 136 H 120 H Lactic Acid Calcium Phosphorus Magnesium Total Bilirubin AST ALT Alkaline Phosphatase Total Creatine Kinase Total Protein Albumin Quality VTE Prophylaxis VTE prophylaxis: pharmacologic ordered
[2025-01-25 11:32] LABS: INR 1.3; Prothrombin Time 15.8 Seconds (11.1-14.7)
[2025-01-25 11:33] LABS: Anion Gap 4 mmol/L (4-12); Blood Urea Nitrogen 12 mg/dL (9-20); Calcium 8.1 mg/dL (8.4-10.2); Carbon Dioxide 26 mmol/L (22-30); Chloride 104 mmol/L (98-107); Creatine Kinase 188 U/L (55-170); Estimated CRCL calculation 82 ml/min; Estimated Glomerular Filt Rate > 60; Glucose 140 mg/dL (65-110); Potassium 3.4 mmol/L (3.4-5.0); Sodium 134 mmol/L (137-145)
[2025-01-25 11:34] LABS: Partial Thromboplastin Time 91.0 Seconds (22.3-36.8)
--- NOTE | 2025-01-25 11:54 | PCFNICU ---
ICU Rounding Note: Pt current nutrition is NPO. Last recorded weight is 139.2 kg, up from 138.8 kg on admit. Bowel Motility: No BM reported. Labs Reviewed: Glu 119, Na 135, Alb 3.3, K 3.0 Meds Noted:Fentanyl, Versed, Protonix. Skin: WNL Additional Notes: Patient remains on a mechanical vent. 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 No nutrition planned for today. Will continue to monitor and follow with plan of care. Following daily in ICU rounds.
--- NOTE | 2025-01-25 12:43 | PC.NURSE ---
Discussed with Dr. Goodson. Titrate nimbex off. Slowly rewarm pt with blanketrol. Pt to go to cardiac clinical laboratory technician at 0800 01/26/25.
[2025-01-25] MEDS: LACTATED RINGERS 1,000 ML 75 ML IV CONT (13:09)
--- NOTE | 2025-01-25 16:31 | WPDCN ---
Assessment and Plan Assessment and plan (1) Dupuytren's contracture of both hands: Code(s): M72.0 - Palmar fascial fibromatosis [Dupuytren] Status: Acute Assessment and Plan: 79yo male intubated and sedated in SICU after cardiac event with right 4th and 5th intrarticular metacarpal base fractures. xray and ct images reviwed and agree with report discussed impression and Dx with relatives noting surgical intervention not indicated at this time especially given other medical issues. discussed fracture healing and plan for conservative treatment with immobilzation and wound care. Plan: 1) wound care - xeroform to bullae, can wash with soap/water and change daily 2) elevation 3) ulnar gutter splint applied 4) repeat xray when stable to note any changes during period fractures were not immobilized since last imaging. 80 minutes spent reviewing imaging, other provider notes, discussing with family members and documenting (2) Fracture of fifth metacarpal bone: Qualifiers: Encounter type: initial encounter Fracture type: closed Metacarpal location: base Fracture alignment: displaced Laterality: right Qualified Code(s): S62.316A - Displaced fracture of base of fifth metacarpal bone, right hand, initial encounter for closed fracture Code(s): S62.308A - Unspecified fracture of other metacarpal bone, initial encounter for closed fracture Status: Acute (3) Fracture of fourth metacarpal bone: Qualifiers: Encounter type: initial encounter Fracture type: closed Metacarpal location: base Fracture alignment: displaced Laterality: right Qualified Code(s): S62.314A - Displaced fracture of base of fourth metacarpal bone, right hand, initial encounter for closed fracture Code(s): S62.308A - Unspecified fracture of other metacarpal bone, initial encounter for closed fracture Status: Acute HPI Data of Consult Date/Time: 01/25/25 16:31 Requesting Physician: Josh chavez Oca, MD Primary Care Provider: Mohit Kat MD Consult Narrative Narrative: I initially learned of Mr. Hale when I received a call from [facility] [place] [facility] 01/18 as pt had presented for eval of right hand pain an blisters. It was reported that he had fallen and was treated at outside facility for fracture of 4th and 5th mc bases. he had been put in a splint that the [place] [facility] physician noted was very tight and patient was having pain and had developed fracture blisters over mpjoints. xray and ct imaging confirmed this and my phone call with ER physician ended with plan to treat blisters conservatively, maintain looser ulnar gutter splint, elevation and patient was to follow up with me in the office. i did not see the patient in the office and patient later presented to [place] [facility] and underwent cardiac events and is no in the SICU and intubated. A consult was placed in the EMR but I was never alerted to this fact and noticed today that this patient was listed on my acute patient list. I subsequently examined the patient in the ICU and discused with immediate family memebrs as patient was intubated and sedated Review of Systems Review of Systems: ROS unobtainable: Yes unobtainable due to endotracheal tube PMFSH Past Medical History Medical History (Updated 01/25/25 @ 16:38 by Nate Abraham MD) Chronic otitis media of left ear with effusion Retraction pocket of tympanic membrane Acute otitis media of left ear with perforated tympanic membrane Chronic otitis media of right ear with effusion Chronic otitis media of both ears Rowell's palsy Diverticulitis Morbid obesity with BMI of 40.0-44.9, adult Folate deficiency anemia Level normal at 16.2 with hemoglobin 15.7 on 06/10/2024. Encounter for prostate cancer screening PSA 1.53n 06/10/24. 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 APAP at 5-16 cm of water pressure 06/04/2020 Abnormal fasting glucose (04/03/20) Fasting glucose 105, hemoglobin A1c 5.9 with microalbumin ratio of 6 with GFR 87 on 06/10/2024. BMI 37.0-37.9, adult Chronic anxiety Chronic depression Eczema Vitamin B12 deficiency anemia Level normal at 1457 with hemoglobin 15.7 on 06/10/2024. Vitamin D deficiency, unspecified Level normal at 36 on 06/10/2024. Hypogonadism male Chronic sinusitis Chronic serous otitis media of right ear Bilateral hearing loss Chronic bilateral low back pain with right-sided sciatica Surgical History Surgical History (Updated 01/23/25 @ 21:05 by Alla Porter APRN) H/O cardiac catheterization History of tonsillectomy History of radiofrequency ablation procedure for cardiac arrhythmia A flutter ablation, [facility] Status post cataract extraction of both eyes with insertion of intraocular lens History of cardiac radiofrequency ablation 5 years ago for AFib History of bowel resection 19 years old Family History Family History Mother Patient's mother is , Onset Age: 92 Acute myocardial infarction Skin cancer Father Family history of cardiovascular disease, Onset Age: 57 Acute myocardial infarction Social History Social History (Updated 01/23/25 @ 20:58 by Alla Porter APRN) Social History: He drinks 2-3 bottles of wine a night. No drug use except occasional marijuana use. Quit tobacco at age 28 after smoking 2 packs a day for 10 years. He lives alone. He is but it sounds like he still is in contact with his ex- quite frequently lives in [facility]. He has 2 step children. He has 1 son who is still living and a daughter who of alcohol and drug use. Code status: full code Surrogate decision maker for healthcare: Juan Pablo (son) Smoking packs per day: 2 Smoking cigarettes per day: 40.0 Years smoked: 11 Smoking pack-years: 22.00 Smoking status: Former smoker Tobacco type: cigarettes and cigars Alcohol intake: current Drinks per week: 70 Alcohol use details: beer or wine Varies, sometimes has a bottle of wine with his meal daily Substance use: former Substance use type: marijuana Spiritual care concerns: No Meds Home Medications and Allergies Home Medications ?Medication ?Instructions ?Recorded ?Confirmed ?Type cholecalciferol (vitamin D3) 125 5,000 unit PO DAILY 04/04/19 01/24/25 History mcg (5,000 unit) tablet cyanocobalamin (vitamin B-12) 1,000 mcg PO DAILY 10/29/23 01/24/25 History 1,000 mcg tablet apixaban 5 mg tablet (Eliquis) 5 mg PO BID #60 tabs 02/19/24 01/24/25 Rx atorvastatin 80 mg tablet 80 mg PO QHS #90 tabs 04/27/24 01/24/25 Rx fexofenadine 180 mg tablet 180 mg PO DAILY chronic seasonal 05/12/24 01/24/25 Rx (Aliza Allergy) allergic rhinitis #30 tabs amiodarone 100 mg tablet 100 mg PO DAILY #90 tabs 06/09/24 01/24/25 Rx carvedilol 6.25 mg tablet 6.25 mg PO Q12H #180 tabs 06/21/24 01/24/25 Rx escitalopram oxalate 20 mg tablet 20 mg PO DAILY #90 tabs 06/21/24 01/24/25 Rx (Lexapro) irbesartan 150 mg tablet 150 mg PO DAILY #90 tabs 06/21/24 01/24/25 Rx Allergies Allergy/AdvReac Type Severity Reaction Status Date / Time hydrochlorothiazide Allergy Intermediate Unknown Verified 01/24/25 00:48 lisinopril Allergy Intermediate Unknown Verified 01/24/25 00:48 Vital Signs Vital Signs - 24 hr 01/24/25 17:00 01/24/25 17:00 01/24/25 17:20 Temperature 32.7 C L 32.7 C L Pulse Rate 56 L 56 L 66 Respiratory Rate 18 18 Blood Pressure 130/77 130/77 Pulse Oximetry 96 96 97 Oxygen Delivery Mechanical Ventilation Fraction of Inspired Oxygen 60 01/24/25 18:00 01/24/25 18:00 01/24/25 18:00 Temperature 33.2 C L 33.2 C L Pulse Rate 53 L 53 L 53 L Respiratory Rate 18 18 Blood Pressure 103/74 129/94 H Pulse Oximetry 100 100 Oxygen Delivery Fraction of Inspired Oxygen 01/24/25 18:00 01/24/25 18:00 01/24/25 18:00 Temperature Pulse Rate 63 63 63 Respiratory Rate 18 18 Blood Pressure 129/94 H Pulse Oximetry Oxygen Delivery Fraction of Inspired Oxygen 01/24/25 18:58 01/24/25 18:58 01/24/25 19:19 Temperature 33.3 C L 33.3 C L Pulse Rate 53 L 53 L 72 Respiratory Rate 18 18 18 Blood Pressure 94/72 L 97/75 L Pulse Oximetry 100 100 Oxygen Delivery Fraction of Inspired Oxygen 01/24/25 19:23 01/24/25 19:30 01/24/25 20:00 Temperature 33.8 C L Pulse Rate 70 71 74 Respiratory Rate 18 18 Blood Pressure 140/89 Pulse Oximetry 100 94 Oxygen Delivery Mechanical Ventilation Fraction of Inspired Oxygen 60 01/24/25 20:00 01/24/25 20:00 01/24/25 20:00 Temperature 33.8 C L Pulse Rate 72 Respiratory Rate 18 Blood Pressure 140/89 Pulse Oximetry 96 96 Oxygen Delivery Mechanical Ventilation Fraction of Inspired Oxygen 60 60 01/24/25 20:00 01/24/25 20:00 01/24/25 20:00 Temperature Pulse Rate 75 75 75 Respiratory Rate 18 18 Blood Pressure 140/89 140/89 Pulse Oximetry Oxygen Delivery Fraction of Inspired Oxygen 01/24/25 20:00 01/24/25 20:00 01/24/25 21:00 Temperature 33.7 C L Pulse Rate 75 72 70 Respiratory Rate 18 18 Blood Pressure 130/90 Pulse Oximetry 95 Oxygen Delivery Fraction of Inspired Oxygen 01/24/25 21:00 01/24/25 22:00 01/24/25 22:00 Temperature 33.7 C L 33.3 C L 33.3 C L Pulse Rate 70 65 65 Respiratory Rate 18 18 18 Blood Pressure 130/90 127/90 127/90 Pulse Oximetry 95 96 96 Oxygen Delivery Fraction of Inspired Oxygen 01/24/25 22:00 01/24/25 22:00 01/24/25 22:00 Temperature Pulse Rate 65 65 65 Respiratory Rate 18 Blood Pressure 127/90 127/90 Pulse Oximetry Oxygen Delivery Fraction of Inspired Oxygen 01/24/25 22:00 01/24/25 22:00 01/24/25 22:49 Temperature Pulse Rate 65 65 61 Respiratory Rate 18 18 Blood Pressure Pulse Oximetry 97 Oxygen Delivery Mechanical Ventilation Fraction of Inspired Oxygen 60 01/24/25 23:00 01/24/25 23:00 01/24/25 23:46 Temperature 32.8 C L 32.7 C L Pulse Rate 60 60 48 L Respiratory Rate 18 18 18 Blood Pressure 133/95 H 133/95 H Pulse Oximetry 97 97 Oxygen Delivery Fraction of Inspired Oxygen 01/25/25 00:00 01/25/25 00:00 01/25/25 00:00 Temperature 32.2 C L 32.2 C L Pulse Rate 52 L 52 L Respiratory Rate 18 18 Blood Pressure 105/81 105/81 Pulse Oximetry 97 97 97 Oxygen Delivery Mechanical Ventilation Fraction of Inspired Oxygen 60 01/25/25 00:00 01/25/25 00:00 01/25/25 00:00 Temperature Pulse Rate 52 L 52 L Respiratory Rate 18 Blood Pressure 105/81 105/81 Pulse Oximetry Oxygen Delivery Fraction of Inspired Oxygen 60 01/25/25 00:00 01/25/25 00:00 01/25/25 00:00 Temperature Pulse Rate 52 L 52 L 51 L Respiratory Rate 18 18 Blood Pressure Pulse Oximetry Oxygen Delivery Fraction of Inspired Oxygen 01/25/25 01:00 01/25/25 01:00 01/25/25 01:00 Temperature 32.3 C L 32.3 C L Pulse Rate 52 L 52 L 52 L Respiratory Rate 18 18 18 Blood Pressure 106/74 106/74 Pulse Oximetry 97 97 Oxygen Delivery Fraction of Inspired Oxygen 01/25/25 01:01 01/25/25 01:07 01/25/25 02:00 Temperature 33.0 C L Pulse Rate 51 L 52 L 58 L Respiratory Rate 18 Blood Pressure 106/74 100/76 Pulse Oximetry 97 99 Oxygen Delivery Mechanical Ventilation Fraction of Inspired Oxygen 60 01/25/25 02:00 01/25/25 02:00 01/25/25 02:00 Temperature 33.0 C L Pulse Rate 58 L 58 L 58 L Respiratory Rate 18 18 Blood Pressure 100/76 100/76 100/76 Pulse Oximetry 99 Oxygen Delivery Fraction of Inspired Oxygen 01/25/25 02:00 01/25/25 02:00 01/25/25 02:00 Temperature Pulse Rate 58 L 58 L 58 L Respiratory Rate 18 18 Blood Pressure Pulse Oximetry Oxygen Delivery Fraction of Inspired Oxygen 01/25/25 03:00 01/25/25 03:00 01/25/25 04:00 Temperature 33.8 C L 33.8 C L Pulse Rate 70 70 78 Respiratory Rate 18 18 18 Blood Pressure 138/90 138/90 140/100 H Pulse Oximetry 99 99 Oxygen Delivery Fraction of Inspired Oxygen 01/25/25 04:00 01/25/25 04:00 01/25/25 04:00 Temperature 34.0 C L 34.0 C L Pulse Rate 78 78 Respiratory Rate 18 18 Blood Pressure 140/100 H 140/100 H Pulse Oximetry 98 98 98 Oxygen Delivery Mechanical Ventilation Fraction of Inspired Oxygen 60 01/25/25 04:00 01/25/25 04:00 01/25/25 04:00 Temperature Pulse Rate 77 78 Respiratory Rate Blood Pressure 140/100 H Pulse Oximetry Oxygen Delivery Fraction of Inspired Oxygen 60 01/25/25 04:00 01/25/25 04:00 01/25/25 04:10 Temperature Pulse Rate 78 78 73 Respiratory Rate 18 18 18 Blood Pressure 141/96 H Pulse Oximetry Oxygen Delivery Fraction of Inspired Oxygen 01/25/25 04:10 01/25/25 05:00 01/25/25 05:00 Temperature 33.5 C L 33.8 C L Pulse Rate 73 64 64 Respiratory Rate 18 18 18 Blood Pressure 141/96 H 134/105 H 134/105 H Pulse Oximetry 98 98 Oxygen Delivery Fraction of Inspired Oxygen 01/25/25 05:14 01/25/25 06:00 01/25/25 06:00 Temperature 33.2 C L 33.2 C L Pulse Rate 64 55 L 55 L Respiratory Rate 18 18 Blood Pressure 139/92 H 139/92 H Pulse Oximetry 99 100 100 Oxygen Delivery Mechanical Ventilation Fraction of Inspired Oxygen 60 01/25/25 06:00 01/25/25 06:00 01/25/25 06:00 Temperature Pulse Rate 55 L 57 L 57 L Respiratory Rate 18 18 Blood Pressure 139/92 H Pulse Oximetry Oxygen Delivery Fraction of Inspired Oxygen 01/25/25 06:00 01/25/25 07:00 01/25/25 08:00 Temperature 32.5 C L 32.5 C L Pulse Rate 57 L 49 L 52 L Respiratory Rate 18 18 18 Blood Pressure 119/89 116/79 Pulse Oximetry 100 100 Oxygen Delivery Fraction of Inspired Oxygen 01/25/25 08:00 01/25/25 08:00 01/25/25 08:00 Temperature Pulse Rate 55 L Respiratory Rate Blood Pressure 116/79 Pulse Oximetry Oxygen Delivery Mechanical Ventilation Fraction of Inspired Oxygen 60 60 01/25/25 08:00 01/25/25 08:00 01/25/25 08:00 Temperature Pulse Rate 55 L 55 L 55 L Respiratory Rate 18 18 18 Blood Pressure 116/79 Pulse Oximetry Oxygen Delivery Fraction of Inspired Oxygen 01/25/25 08:00 01/25/25 08:21 01/25/25 08:21 Temperature Pulse Rate 52 L 52 L 52 L Respiratory Rate 18 Blood Pressure Pulse Oximetry 100 Oxygen Delivery Mechanical Ventilation Fraction of Inspired Oxygen 60 01/25/25 08:30 01/25/25 09:00 01/25/25 10:00 Temperature 33.0 C L 33.2 C L Pulse Rate 55 L 57 L 56 L Respiratory Rate 18 18 18 Blood Pressure 137/93 H 137/85 Pulse Oximetry 100 100 Oxygen Delivery Fraction of Inspired Oxygen 01/25/25 10:00 01/25/25 10:00 01/25/25 10:00 Temperature Pulse Rate 56 L 56 L 56 L Respiratory Rate 18 18 Blood Pressure 137/85 137/85 Pulse Oximetry Oxygen Delivery Fraction of Inspired Oxygen 01/25/25 10:00 01/25/25 10:00 01/25/25 10:00 Temperature 33.2 C L Pulse Rate 56 L 55 L 56 L Respiratory Rate 18 18 Blood Pressure 137/85 Pulse Oximetry 100 Oxygen Delivery Fraction of Inspired Oxygen 01/25/25 10:33 01/25/25 11:00 01/25/25 12:00 Temperature 32.9 C L 32.6 C L Pulse Rate 52 L 50 L 49 L Respiratory Rate 18 18 Blood Pressure 120/91 H 118/93 H Pulse Oximetry 100 100 100 Oxygen Delivery Mechanical Ventilation Fraction of Inspired Oxygen 60 01/25/25 12:00 01/25/25 12:00 01/25/25 12:00 Temperature Pulse Rate 49 L 49 L 49 L Respiratory Rate 18 18 Blood Pressure 118/93 H 118/93 H Pulse Oximetry Oxygen Delivery Fraction of Inspired Oxygen 01/25/25 12:00 01/25/25 12:00 01/25/25 12:00 Temperature Pulse Rate 49 L Respiratory Rate 18 Blood Pressure Pulse Oximetry Oxygen Delivery Mechanical Ventilation Fraction of Inspired Oxygen 60 60 01/25/25 12:00 01/25/25 12:38 01/25/25 13:00 Temperature 32.6 C L 32.7 C L Pulse Rate 49 L 49 L 48 L Respiratory Rate 18 18 Blood Pressure 118/84 99/71 L Pulse Oximetry 100 100 Oxygen Delivery Fraction of Inspired Oxygen 01/25/25 13:00 01/25/25 13:45 01/25/25 13:45 Temperature 32.7 C L Pulse Rate 48 L 51 L 51 L Respiratory Rate 18 18 Blood Pressure 99/71 L Pulse Oximetry 100 100 Oxygen Delivery Mechanical Ventilation Fraction of Inspired Oxygen 60 12/03/25 13:55 01/25/25 14:00 01/25/25 14:00 Temperature 33.1 C L Pulse Rate 52 L 54 L 54 L Respiratory Rate 18 18 Blood Pressure 90/71 L 90/71 L Pulse Oximetry 100 Oxygen Delivery Fraction of Inspired Oxygen 01/25/25 14:00 01/25/25 14:00 01/25/25 14:00 Temperature Pulse Rate 54 L 54 L 54 L Respiratory Rate 18 18 18 Blood Pressure 90/71 L Pulse Oximetry Oxygen Delivery Fraction of Inspired Oxygen 01/25/25 14:00 01/25/25 14:00 01/25/25 15:00 Temperature 33.4 C L 34.2 C L Pulse Rate 54 L 55 L 60 Respiratory Rate 18 18 Blood Pressure 98/63 L 92/63 L Pulse Oximetry 100 100 Oxygen Delivery Fraction of Inspired Oxygen 01/25/25 16:00 01/25/25 16:00 01/25/25 16:00 Temperature 34.9 C L 35.1 C L Pulse Rate 75 75 62 Respiratory Rate 18 18 Blood Pressure 93/70 L 93/70 L Pulse Oximetry 100 100 Oxygen Delivery Fraction of Inspired Oxygen 01/25/25 16:00 01/25/25 16:00 01/25/25 16:00 Temperature Pulse Rate 62 62 62 Respiratory Rate 18 18 Blood Pressure 93/70 L 93/70 L Pulse Oximetry Oxygen Delivery Fraction of Inspired Oxygen 01/25/25 16:00 01/25/25 16:00 01/25/25 16:00 Temperature Pulse Rate 62 Respiratory Rate 18 Blood Pressure Pulse Oximetry Oxygen Delivery Mechanical Ventilation Fraction of Inspired Oxygen 60 60 Exam Narrative: Gen: right hand edematous with dorsal bullae over mpjoints in various states of rupture and some with clear serous fluid present. no erythema. ROM: near full passive ROM but pt unable to comply with exam and note right small finger pipj dupuytren contracture family members notes was present for a while.no crepitus over fx site Vascular: Warm and well perfused Sensation: Intact to light touch Results Labs 01/25/25 11:11 01/25/25 11:11 Labs: Short CBC 01/24/25 01/25/25 01/25/25 Range/Units 23:41 05:06 11:11 WBC 12.1 H 13.4 H 11.3 H (4.5-10.0) K/mm3 Hgb 16.2 16.6 16.1 (14.0-18.0) g/dL Hct 47.0 47.9 47.0 (42.0-52.0) % Plt Count 204 226 205 (150-375) k/mm3 BMP 01/24/25 01/25/25 01/25/25 23:41 05:06 11:11 Sodium 134 L 135 L 134 L Potassium 2.8 L* 3.0 L 3.4 Chloride 103 104 104 Carbon Dioxide 26 26 26 BUN 12 12 12 Creatinine 0.92 0.94 0.97 Glucose 132 H 119 H 140 H Calcium 8.1 L 8.1 L 8.1 L Cardiac Enzymes 01/24/25 01/24/25 01/25/25 Range/Units 18:03 23:41 05:06 Total Creatine Kinase 390 H 307 H 250 H (55-170) U/L 01/25/25 Range/Units 11:11 Total Creatine Kinase 188 H (55-170) U/L Liver Function 01/25/25 Range/Units 05:06 Total Bilirubin 0.9 (0.2-1.3) mg/dL AST 77 H (17-59) U/L ALT 52 H (6-50) U/L Alkaline Phosphatase 65 (38-126) U/L Albumin 3.3 L (3.5-5.1) g/dL
[2025-01-25 16:59] LABS: Alveolar/Arterial O2 Gradient 314.5 mmHg; Fractional Inspired Oxygen 60 %; HCO3 ABG 22.5 mEq/l (22.0-26.0); Modified Allen's Test Pass; Oxygen Content ABG 21.9 %vol (16.0-22.0); Oxygen Saturation ABG 95.2 % (95.0-100.0); PCO2 ABG 35.7 mmHg (35.0-45.0); PO2 ABG 74.0 mmHg (80.0-100.0); PO2 FiO2 Ratio Arterial Blood 1.23 %; Site Drawn LEFT RADIAL
[2025-01-25 17:00] LABS: Arterial Blood Gas Tidal Volume 420 ml; Arterial Blood Gas Ventilator rate 18 /MIN
--- NOTE | 2025-01-25 17:42 | PC.NURSE ---
Pt continuously coughing. Sedatives titrated per protocol.
[2025-01-25 18:07] LABS: Creatine Kinase 154 U/L (55-170); Triglycerides 160 mg/dL (<150)
[2025-01-25 18:15] LABS: Partial Thromboplastin Time 75.7 Seconds (22.3-36.8)
--- NOTE | 2025-01-25 19:19 | WPDINFPN2 ---
Progress Note: A&P Assessment and Plan (1) Pneumonia: Code(s): J18.9 - Pneumonia, unspecified organism Status: Acute Assessment and Plan: ASSESSMENT: 1. pneumonia--CAP/aspiration?; MRSA nares neg 2. Vfib cardiac arrest 3. acute respiratory failure; s/p intubation 4. Afib 5. CAD 6. HTN, HL 7. morbid obesity 8. right wrist fracture with ecchymoses; after fall, no signs of current infection RECOMMENDATIONS: -stop vanco -continue zosyn -legionella and strep ags -f/u on sputum and blood cxs d/w pharmacy staff, nursing staff and framework developer Pt was seen via video telehealth consultation with the assistance of staff. Chart, data and patient info reviewed. Patient was located at [facility] while I was in my [place] office. Subjective Date/time seen: 01/25/25 19:19 Interval history: warming up remains in ICU at my visit was on lidocaine, heparin and sedated but no pressors no more bigimeny per ICU attg. Cards holding on cath for now Exam Narrative: On vent with FiO2=60 and PEEP=8 +ETT +OGT bradycardic right hand with ecchymoses but no signs of infection right femoral line Objective Data Vital Signs Vital Signs: Vital Signs - 24 hr 01/24/25 19:23 01/24/25 19:30 01/24/25 20:00 Temperature 92.8 F L Pulse Rate 70 71 74 Respiratory Rate 18 18 Blood Pressure 140/89 Pulse Oximetry 100 94 Oxygen Delivery Mechanical Ventilation Fraction of Inspired Oxygen 60 01/24/25 20:00 01/24/25 20:00 01/24/25 20:00 Temperature 92.8 F L Pulse Rate 72 Respiratory Rate 18 Blood Pressure 140/89 Pulse Oximetry 96 96 Oxygen Delivery Mechanical Ventilation Fraction of Inspired Oxygen 60 60 01/24/25 20:00 01/24/25 20:00 01/24/25 20:00 Temperature Pulse Rate 75 75 75 Respiratory Rate 18 18 Blood Pressure 140/89 140/89 Pulse Oximetry Oxygen Delivery Fraction of Inspired Oxygen 01/24/25 20:00 01/24/25 20:00 01/24/25 21:00 Temperature 92.7 F L Pulse Rate 75 72 70 Respiratory Rate 18 18 Blood Pressure 130/90 Pulse Oximetry 95 Oxygen Delivery Fraction of Inspired Oxygen 01/24/25 21:00 01/24/25 22:00 01/24/25 22:00 Temperature 92.7 F L 92.0 F L 92.0 F L Pulse Rate 70 65 65 Respiratory Rate 18 18 18 Blood Pressure 130/90 127/90 127/90 Pulse Oximetry 95 96 96 Oxygen Delivery Fraction of Inspired Oxygen 01/24/25 22:00 01/24/25 22:00 01/24/25 22:00 Temperature Pulse Rate 65 65 65 Respiratory Rate 18 Blood Pressure 127/90 127/90 Pulse Oximetry Oxygen Delivery Fraction of Inspired Oxygen 01/24/25 22:00 01/24/25 22:00 01/24/25 22:49 Temperature Pulse Rate 65 65 61 Respiratory Rate 18 18 Blood Pressure Pulse Oximetry 97 Oxygen Delivery Mechanical Ventilation Fraction of Inspired Oxygen 60 01/24/25 23:00 01/24/25 23:00 01/24/25 23:46 Temperature 91.0 F L 90.9 F L Pulse Rate 60 60 48 L Respiratory Rate 18 18 18 Blood Pressure 133/95 H 133/95 H Pulse Oximetry 97 97 Oxygen Delivery Fraction of Inspired Oxygen 01/25/25 00:00 01/25/25 00:00 01/25/25 00:00 Temperature 90.0 F L 90.0 F L Pulse Rate 52 L 52 L Respiratory Rate 18 18 Blood Pressure 105/81 105/81 Pulse Oximetry 97 97 97 Oxygen Delivery Mechanical Ventilation Fraction of Inspired Oxygen 60 01/25/25 00:00 01/25/25 00:00 01/25/25 00:00 Temperature Pulse Rate 52 L 52 L Respiratory Rate 18 Blood Pressure 105/81 105/81 Pulse Oximetry Oxygen Delivery Fraction of Inspired Oxygen 60 01/25/25 00:00 01/25/25 00:00 01/25/25 00:00 Temperature Pulse Rate 52 L 52 L 51 L Respiratory Rate 18 18 Blood Pressure Pulse Oximetry Oxygen Delivery Fraction of Inspired Oxygen 01/25/25 01:00 01/25/25 01:00 01/25/25 01:00 Temperature 90.2 F L 90.2 F L Pulse Rate 52 L 52 L 52 L Respiratory Rate 18 18 18 Blood Pressure 106/74 106/74 Pulse Oximetry 97 97 Oxygen Delivery Fraction of Inspired Oxygen 01/25/25 01:01 01/25/25 01:07 01/25/25 02:00 Temperature 91.4 F L Pulse Rate 51 L 52 L 58 L Respiratory Rate 18 Blood Pressure 106/74 100/76 Pulse Oximetry 97 99 Oxygen Delivery Mechanical Ventilation Fraction of Inspired Oxygen 60 01/25/25 02:00 01/25/25 02:00 01/25/25 02:00 Temperature 91.4 F L Pulse Rate 58 L 58 L 58 L Respiratory Rate 18 18 Blood Pressure 100/76 100/76 100/76 Pulse Oximetry 99 Oxygen Delivery Fraction of Inspired Oxygen 01/25/25 02:00 01/25/25 02:00 01/25/25 02:00 Temperature Pulse Rate 58 L 58 L 58 L Respiratory Rate 18 18 Blood Pressure Pulse Oximetry Oxygen Delivery Fraction of Inspired Oxygen 01/25/25 03:00 01/25/25 03:00 01/25/25 04:00 Temperature 92.9 F L 92.9 F L Pulse Rate 70 70 78 Respiratory Rate 18 18 18 Blood Pressure 138/90 138/90 140/100 H Pulse Oximetry 99 99 Oxygen Delivery Fraction of Inspired Oxygen 01/25/25 04:00 01/25/25 04:00 01/25/25 04:00 Temperature 93.2 F L 93.2 F L Pulse Rate 78 78 Respiratory Rate 18 18 Blood Pressure 140/100 H 140/100 H Pulse Oximetry 98 98 98 Oxygen Delivery Mechanical Ventilation Fraction of Inspired Oxygen 60 01/25/25 04:00 01/25/25 04:00 01/25/25 04:00 Temperature Pulse Rate 77 78 Respiratory Rate Blood Pressure 140/100 H Pulse Oximetry Oxygen Delivery Fraction of Inspired Oxygen 60 01/25/25 04:00 01/25/25 04:00 01/25/25 04:10 Temperature Pulse Rate 78 78 73 Respiratory Rate 18 18 18 Blood Pressure 141/96 H Pulse Oximetry Oxygen Delivery Fraction of Inspired Oxygen 01/25/25 04:10 01/25/25 05:00 01/25/25 05:00 Temperature 92.3 F L 92.8 F L Pulse Rate 73 64 64 Respiratory Rate 18 18 18 Blood Pressure 141/96 H 134/105 H 134/105 H Pulse Oximetry 98 98 Oxygen Delivery Fraction of Inspired Oxygen 01/25/25 05:14 01/25/25 06:00 01/25/25 06:00 Temperature 91.7 F L 91.7 F L Pulse Rate 64 55 L 55 L Respiratory Rate 18 18 Blood Pressure 139/92 H 139/92 H Pulse Oximetry 99 100 100 Oxygen Delivery Mechanical Ventilation Fraction of Inspired Oxygen 60 01/25/25 06:00 01/25/25 06:00 01/25/25 06:00 Temperature Pulse Rate 55 L 57 L 57 L Respiratory Rate 18 18 Blood Pressure 139/92 H Pulse Oximetry Oxygen Delivery Fraction of Inspired Oxygen 01/25/25 06:00 01/25/25 07:00 01/25/25 08:00 Temperature 90.5 F L 90.5 F L Pulse Rate 57 L 49 L 52 L Respiratory Rate 18 18 18 Blood Pressure 119/89 116/79 Pulse Oximetry 100 100 Oxygen Delivery Fraction of Inspired Oxygen 01/25/25 08:00 01/25/25 08:00 01/25/25 08:00 Temperature Pulse Rate 55 L Respiratory Rate Blood Pressure 116/79 Pulse Oximetry Oxygen Delivery Mechanical Ventilation Fraction of Inspired Oxygen 60 60 01/25/25 08:00 01/25/25 08:00 01/25/25 08:00 Temperature Pulse Rate 55 L 55 L 55 L Respiratory Rate 18 18 18 Blood Pressure 116/79 Pulse Oximetry Oxygen Delivery Fraction of Inspired Oxygen 01/25/25 08:00 01/25/25 08:21 01/25/25 08:21 Temperature Pulse Rate 52 L 52 L 52 L Respiratory Rate 18 Blood Pressure Pulse Oximetry 100 Oxygen Delivery Mechanical Ventilation Fraction of Inspired Oxygen 60 01/25/25 08:30 01/25/25 09:00 01/25/25 10:00 Temperature 91.4 F L 91.7 F L Pulse Rate 55 L 57 L 56 L Respiratory Rate 18 18 18 Blood Pressure 137/93 H 137/85 Pulse Oximetry 100 100 Oxygen Delivery Fraction of Inspired Oxygen 01/25/25 10:00 01/25/25 10:00 01/25/25 10:00 Temperature Pulse Rate 56 L 56 L 56 L Respiratory Rate 18 18 Blood Pressure 137/85 137/85 Pulse Oximetry Oxygen Delivery Fraction of Inspired Oxygen 01/25/25 10:00 01/25/25 10:00 01/25/25 10:00 Temperature 91.7 F L Pulse Rate 56 L 55 L 56 L Respiratory Rate 18 18 Blood Pressure 137/85 Pulse Oximetry 100 Oxygen Delivery Fraction of Inspired Oxygen 01/25/25 10:33 01/25/25 11:00 01/25/25 12:00 Temperature 91.3 F L 90.7 F L Pulse Rate 52 L 50 L 49 L Respiratory Rate 18 18 Blood Pressure 120/91 H 118/93 H Pulse Oximetry 100 100 100 Oxygen Delivery Mechanical Ventilation Fraction of Inspired Oxygen 60 01/25/25 12:00 01/25/25 12:00 01/25/25 12:00 Temperature Pulse Rate 49 L 49 L 49 L Respiratory Rate 18 18 Blood Pressure 118/93 H 118/93 H Pulse Oximetry Oxygen Delivery Fraction of Inspired Oxygen 01/25/25 12:00 01/25/25 12:00 01/25/25 12:00 Temperature Pulse Rate 49 L Respiratory Rate 18 Blood Pressure Pulse Oximetry Oxygen Delivery Mechanical Ventilation Fraction of Inspired Oxygen 60 60 01/25/25 12:00 01/25/25 12:38 01/25/25 13:00 Temperature 90.7 F L 90.8 F L Pulse Rate 49 L 49 L 48 L Respiratory Rate 18 18 Blood Pressure 118/84 99/71 L Pulse Oximetry 100 100 Oxygen Delivery Fraction of Inspired Oxygen 01/25/25 13:00 01/25/25 13:45 01/25/25 13:45 Temperature 90.8 F L Pulse Rate 48 L 51 L 51 L Respiratory Rate 18 18 Blood Pressure 99/71 L Pulse Oximetry 100 100 Oxygen Delivery Mechanical Ventilation Fraction of Inspired Oxygen 60 01/25/25 13:55 01/25/25 14:00 01/25/25 14:00 Temperature 91.6 F L Pulse Rate 52 L 54 L 54 L Respiratory Rate 18 18 Blood Pressure 90/71 L 90/71 L Pulse Oximetry 100 Oxygen Delivery Fraction of Inspired Oxygen 01/25/25 14:00 01/25/25 14:00 01/25/25 14:00 Temperature Pulse Rate 54 L 54 L 54 L Respiratory Rate 18 18 18 Blood Pressure 90/71 L Pulse Oximetry Oxygen Delivery Fraction of Inspired Oxygen 01/25/25 14:00 01/25/25 14:00 01/25/25 15:00 Temperature 92.1 F L 93.5 F L Pulse Rate 54 L 55 L 60 Respiratory Rate 18 18 Blood Pressure 98/63 L 92/63 L Pulse Oximetry 100 100 Oxygen Delivery Fraction of Inspired Oxygen 01/25/25 16:00 01/25/25 16:00 01/25/25 16:00 Temperature 94.9 F L 95.1 F L Pulse Rate 75 75 62 Respiratory Rate 18 18 Blood Pressure 93/70 L 93/70 L Pulse Oximetry 100 100 Oxygen Delivery Fraction of Inspired Oxygen 01/25/25 16:00 01/25/25 16:00 01/25/25 16:00 Temperature Pulse Rate 62 62 62 Respiratory Rate 18 18 Blood Pressure 93/70 L 93/70 L Pulse Oximetry Oxygen Delivery Fraction of Inspired Oxygen 01/25/25 16:00 01/25/25 16:00 01/25/25 16:00 Temperature Pulse Rate 62 Respiratory Rate 18 Blood Pressure Pulse Oximetry Oxygen Delivery Mechanical Ventilation Fraction of Inspired Oxygen 60 60 01/25/25 16:44 01/25/25 17:00 01/25/25 17:03 Temperature 96.7 F L Pulse Rate 74 83 52 L Respiratory Rate 18 23 H Blood Pressure 139/83 175/109 H Pulse Oximetry 96 100 Oxygen Delivery Mechanical Ventilation Fraction of Inspired Oxygen 60 01/25/25 17:32 01/25/25 17:34 01/25/25 17:37 Temperature Pulse Rate 83 81 83 Respiratory Rate 26 H 26 H Blood Pressure 175/109 H Pulse Oximetry Oxygen Delivery Fraction of Inspired Oxygen 01/25/25 17:37 01/25/25 17:41 01/25/25 17:48 Temperature Pulse Rate 83 80 78 Respiratory Rate 27 H 29 H Blood Pressure 175/109 H Pulse Oximetry Oxygen Delivery Fraction of Inspired Oxygen 01/25/25 17:50 01/25/25 18:00 01/25/25 18:00 Temperature 97.1 F L Pulse Rate 86 75 60 Respiratory Rate 26 H 20 Blood Pressure 131/90 Pulse Oximetry 95 Oxygen Delivery Fraction of Inspired Oxygen 01/25/25 19:00 01/25/25 19:00 Temperature 97.6 F 97.6 F Pulse Rate 72 78 Respiratory Rate 17 20 Blood Pressure 141/91 H 141/91 H Pulse Oximetry 96 96 Oxygen Delivery Fraction of Inspired Oxygen Intake/Output Intake/Output: Intake & Output 01/22/25 01/23/25 01/24/25 01/25/25 23:59 23:59 23:59 23:59 Intake Total 33.3 4480.4 2067.0 Output Total 600 1635 757 Balance -566.7 2845.4 1310.0 Meds/Results Medications: Active Medications Generic Name Dose Route Start Last Admin Trade Name Freq PRN Reason Stop Dose Admin Albuterol/Ipratropium 3 ml 01/24/25 02:00 01/25/25 13:47 Ipratropium 0.5 Mg/Albuterol Sulfate 2.5 Mg (Base) Ampul.Neb 3 Ml INHALATION 3 ml Q6HRT JOCELYNE Administration Aspirin 81 mg 01/24/25 12:00 01/25/25 08:06 Aspirin 81 Mg Enteric Tablet PO 81 mg QAM JOCELYNE Administration Atorvastatin Calcium 80 mg 01/24/25 21:00 01/24/25 21:22 Atorvastatin 40 Mg Tablet PO 80 mg QHS JOCELYNE Administration Carvedilol 3.125 mg 01/24/25 21:00 Carvedilol 3.125 Mg Tablet PO On Hold: 01/24/25 21:00 Q12HR JOCELYNE Heparin Sodium (Porcine) 4,000 units 01/23/25 17:10 Heparin Sodium 5,000 Units/Ml Vial IV PUSH PRN PRN aPTT less than 55 seconds Heparin Sodium (Porcine) 4,000 units 01/23/25 17:10 Heparin Sodium 5,000 Units/Ml Vial IV PUSH PRN PRN aPTT 55 - 70 seconds Hydralazine HCl 10 mg 01/24/25 11:31 01/24/25 14:05 Hydralazine Hcl 20 Mg/Ml Vial IV PUSH 10 mg Q4H PRN Administration Blood Pressure - High Heparin Sodium/Dextrose 25,000 units in 250 mls @ 7 mls/hr 01/23/25 17:10 01/25/25 18:22 Heparin Sodium/D5w 100 Units/Ml IV CONT 700 units/hr .Q24H JOCELYNE 7 mls/hr Protocol Titration 700 UNITS/HR Fentanyl Citrate 2,500 mcg in 250 mls @ 10 mls/hr 01/23/25 21:15 01/25/25 17:50 Fentanyl 2,500 Mcg/Ns 250 Ml IV CONT 100 mcg/hr .Q25H JOCELYNE 10 mls/hr Protocol Titration 100 MCG/HR Piperacillin Sod/Tazobactam 50 mls @ 100 mls/hr 01/23/25 22:00 01/25/25 16:30 Sod 3.375 gm/ Sodium Chloride IVPB Infused Q6H JOCELYNE Infusion Lactated Ringer's 1,000 mls @ 75 mls/hr 01/24/25 10:00 01/25/25 13:09 Lr - Lactated Ringers Iv IV CONT 75 mls/hr .[id number] JOCELYNE Administration Midazolam HCl 100 mg in 100 mls @ 3 mls/hr 01/24/25 12:20 01/25/25 17:48 Versed 100 Mg/Ns 100 Ml IV CONT 3 mg/hr .[id number] JOCELYNE 3 mls/hr Protocol Titration 3 MG/HR Lidocaine HCl/Dextrose 2 gm in 500 mls @ 15 mls/hr 01/24/25 13:30 01/25/25 17:37 Lidocaine In D5w 4 Mg/Ml IV CONT 1 mg/min .Q24H JOCELYNE 15 mls/hr 1 MG/MIN Administration Multi-Ingred Cream/Lotion/Oil/Oint 1 applic 01/24/25 09:00 01/25/25 08:06 Mineral Oil/White Petrolatum Ointment EACH EYE 1 applic Q12HR JOCELYNE Administration Pantoprazole Sodium 40 mg 01/24/25 09:00 01/25/25 08:06 Pantoprazole Sodium Iv 40 Mg Vial IV PUSH 40 mg DAILY JOCELYNE Administration Perflutren Lipid Microsphere 0 ml 01/24/25 11:06 Perflutren Lipid Microspheres 1.5 Ml Vial Diluted To 10 Ml Total Volume IV PUSH 01/27/25 11:06 ONCE PRN adequate visualization Protocol Sodium Chloride 10 ml 01/24/25 06:00 01/25/25 15:24 Central Line Flush IV PUSH 10 ml Q8HR JOCELYNE Administration Sodium Chloride 20 ml 01/23/25 22:48 Central Line Flush IV PUSH PRN PRN after blood draws Radiology Results: ITS Impressions Head CT 01/23/25 19:11 IMPRESSION: No acute intracranial hemorrhage or extra axial fluid collections. Bilateral mastoiditis. All CT scans at this facility are performed using low dose modulation techniques as appropriate to perform exam including the following: automated exposure control; use of iterative reconstruction technique; adjustment of the mA and/or kV according to patient size (this includes techniques or standardized protocols for targeted exams where dose is matched to indication/reason for exam). Chest/Abdomen/Pelvis CT 01/23/25 19:16 IMPRESSION: Bilateral lower lobe consolidation may represent pneumonia. No acute abdominal or pelvic findings. All CT scans at this facility are performed using low dose modulation techniques as appropriate to perform exam including the following: automated exposure control; use of iterative reconstruction technique; adjustment of the mA and/or kV according to patient size (this includes techniques or standardized protocols for targeted exams where dose is matched to indication/reason for exam). Venous Doppler Study 01/24/25 11:45 IMPRESSION: 1. No DVT either leg. Ankle Brachial Index 01/24/25 11:52 IMPRESSION: 1. Artery pressures and the pressures at the right and left brachial, posterior tibial and dorsalis pedis arteries were unable to be obtained likely due to markedly increased pressures with right and left great toe pressures of 212 and 214 mmHg respectively. Chest X-Ray 01/25/25 07:38 IMPRESSION: 1. Worsening right lower lobe atelectasis and/or airspace disease with effusion. 2. Persistent left lower lobe atelectasis and/or airspace disease. Labs Labs: Laboratory Results - last 24 hr 01/24/25 01/24/25 01/24/25 19:59 21:04 22:11 WBC RBC Hgb Hct MCV MCH MCHC RDW Plt Count MPV Immature Gran % (Auto) Neut % (Auto) Lymph % (Auto) [place] % (Auto) Eos % (Auto) Baso % (Auto) Lymph # (Auto) [place] # (Auto) Eos # (Auto) Baso # (Auto) Abs Immat Gran (auto) Absolute Neuts (auto) Absolute Nucleated RBC Nucleated RBC % PT INR APTT Puncture Site ABG pH ABG pCO2 ABG pO2 ABG PO2/FiO2 Ratio ABG HCO3 ABG O2 Saturation ABG O2 Content ABG Base Excess A-a Gradient Oxyhemoglobin Carboxyhemoglobin Methemoglobin Reduced Hemoglobin Total Hemoglobin O2 Delivery Device O2 Liters/Min Minute Volume Vent Rate Vent Mode FiO2 Tidal Volume PEEP Peak Inspir Pressure Pressure Support Sodium Potassium Chloride Carbon Dioxide Anion Gap BUN Creatinine Estim Creat Clear Calc Estimated GFR Glucose POC Capillary Glucose 149 H 126 H 122 H Lactic Acid Calcium Phosphorus Magnesium Total Bilirubin AST ALT Alkaline Phosphatase Total Creatine Kinase Total Protein Albumin Triglycerides Vancomycin Trough 01/24/25 01/24/25 01/25/25 23:05 23:41 00:00 WBC 12.1 H RBC 4.84 Hgb 16.2 Hct 47.0 MCV 97.1 MCH 33.5 MCHC 34.5 RDW 13.2 Plt Count 204 MPV 9.9 Immature Gran % (Auto) Neut % (Auto) Lymph % (Auto) [place] % (Auto) Eos % (Auto) Baso % (Auto) Lymph # (Auto) [place] # (Auto) Eos # (Auto) Baso # (Auto) Abs Immat Gran (auto) Absolute Neuts (auto) Absolute Nucleated RBC Nucleated RBC % PT 16.3 H INR 1.3 APTT Puncture Site Left brachial ABG pH 7.458 H ABG pCO2 27.8 L ABG pO2 73.1 L ABG PO2/FiO2 Ratio 1.22 ABG HCO3 19.2 L ABG O2 Saturation 95.6 ABG O2 Content 21.8 ABG Base Excess -2.9 A-a Gradient 324.1 Oxyhemoglobin 94.1 Carboxyhemoglobin Methemoglobin Reduced Hemoglobin Total Hemoglobin 16.5 O2 Delivery Device Ventilator O2 Liters/Min Not Reportable Minute Volume Not Reportable Vent Rate 18 Vent Mode Cmv FiO2 60 Tidal Volume 420 PEEP 8 Peak Inspir Pressure Not Reportable Pressure Support Not Reportable Sodium 134 L Potassium 2.8 L* Chloride 103 Carbon Dioxide 26 Anion Gap 5 BUN 12 Creatinine 0.92 Estim Creat Clear Calc 86 Estimated GFR > 60 Glucose 132 H POC Capillary Glucose 146 H Lactic Acid 2.2 H Calcium 8.1 L Phosphorus 2.9 Magnesium Total Bilirubin AST ALT Alkaline Phosphatase Total Creatine Kinase 307 H Total Protein Albumin Triglycerides Vancomycin Trough 01/25/25 01/25/25 01/25/25 00:05 01:06 02:04 WBC RBC Hgb Hct MCV MCH MCHC RDW Plt Count MPV Immature Gran % (Auto) Neut % (Auto) Lymph % (Auto) [place] % (Auto) Eos % (Auto) Baso % (Auto) Lymph # (Auto) [place] # (Auto) Eos # (Auto) Baso # (Auto) Abs Immat Gran (auto) Absolute Neuts (auto) Absolute Nucleated RBC Nucleated RBC % PT INR APTT Puncture Site ABG pH ABG pCO2 ABG pO2 ABG PO2/FiO2 Ratio ABG HCO3 ABG O2 Saturation ABG O2 Content ABG Base Excess A-a Gradient Oxyhemoglobin Carboxyhemoglobin Methemoglobin Reduced Hemoglobin Total Hemoglobin O2 Delivery Device O2 Liters/Min Minute Volume Vent Rate Vent Mode FiO2 Tidal Volume PEEP Peak Inspir Pressure Pressure Support Sodium Potassium Chloride Carbon Dioxide Anion Gap BUN Creatinine Estim Creat Clear Calc Estimated GFR Glucose POC Capillary Glucose 143 H 136 H 123 H Lactic Acid Calcium Phosphorus Magnesium Total Bilirubin AST ALT Alkaline Phosphatase Total Creatine Kinase Total Protein Albumin Triglycerides Vancomycin Trough 01/25/25 01/25/25 01/25/25 03:13 04:05 04:32 WBC RBC Hgb Hct MCV MCH MCHC RDW Plt Count MPV Immature Gran % (Auto) Neut % (Auto) Lymph % (Auto) [place] % (Auto) Eos % (Auto) Baso % (Auto) Lymph # (Auto) [place] # (Auto) Eos # (Auto) Baso # (Auto) Abs Immat Gran (auto) Absolute Neuts (auto) Absolute Nucleated RBC Nucleated RBC % PT INR APTT Puncture Site Right radial ABG pH 7.421 ABG pCO2 33.5 L ABG pO2 72.4 L ABG PO2/FiO2 Ratio 1.21 ABG HCO3 21.3 L ABG O2 Saturation 95.0 ABG O2 Content 22.7 H ABG Base Excess -2.1 A-a Gradient 318.6 Oxyhemoglobin 93.6 Carboxyhemoglobin 0.7 Methemoglobin 0.2 Reduced Hemoglobin 5.5 H Total Hemoglobin 17.3 O2 Delivery Device Ventilator O2 Liters/Min Not Reportable Minute Volume Not Reportable Vent Rate 18 Vent Mode Cmv FiO2 60 Tidal Volume 420 PEEP 5 Peak Inspir Pressure Not Reportable Pressure Support Not Reportable Sodium Potassium Chloride Carbon Dioxide Anion Gap BUN Creatinine Estim Creat Clear Calc Estimated GFR Glucose POC Capillary Glucose 121 H 131 H Lactic Acid Calcium Phosphorus Magnesium Total Bilirubin AST ALT Alkaline Phosphatase Total Creatine Kinase Total Protein Albumin Triglycerides Vancomycin Trough 01/25/25 01/25/25 01/25/25 05:06 05:07 05:17 WBC 13.4 H RBC 4.94 Hgb 16.6 Hct 47.9 MCV 97.0 MCH 33.6 MCHC 34.7 RDW 13.2 Plt Count 226 MPV 9.9 Immature Gran % (Auto) 0.4 Neut % (Auto) 73.5 H Lymph % (Auto) 16.9 L [place] % (Auto) 8.5 Eos % (Auto) 0.4 Baso % (Auto) 0.3 Lymph # (Auto) 2.26 [place] # (Auto) 1.1 H Eos # (Auto) 0.1 Baso # (Auto) 0.0 Abs Immat Gran (auto) 0.06 H Absolute Neuts (auto) 9.8 H Absolute Nucleated RBC 0.000 Nucleated RBC % 0.0 PT INR APTT 179.5 H* Puncture Site ABG pH ABG pCO2 ABG pO2 ABG PO2/FiO2 Ratio ABG HCO3 ABG O2 Saturation ABG O2 Content ABG Base Excess A-a Gradient Oxyhemoglobin Carboxyhemoglobin Methemoglobin Reduced Hemoglobin Total Hemoglobin O2 Delivery Device O2 Liters/Min Minute Volume Vent Rate Vent Mode FiO2 Tidal Volume PEEP Peak Inspir Pressure Pressure Support Sodium 135 L Potassium 3.0 L Chloride 104 Carbon Dioxide 26 Anion Gap 5 BUN 12 Creatinine 0.94 Estim Creat Clear Calc 85 Estimated GFR > 60 Glucose 119 H POC Capillary Glucose 122 H Lactic Acid 2.1 H Calcium 8.1 L Phosphorus 3.2 Magnesium 2.1 Total Bilirubin 0.9 AST 77 H ALT 52 H Alkaline Phosphatase 65 Total Creatine Kinase 250 H Total Protein 6.2 L Albumin 3.3 L Triglycerides Vancomycin Trough 01/25/25 01/25/25 01/25/25 06:08 07:08 07:24 WBC RBC Hgb Hct MCV MCH MCHC RDW Plt Count MPV Immature Gran % (Auto) Neut % (Auto) Lymph % (Auto) [place] % (Auto) Eos % (Auto) Baso % (Auto) Lymph # (Auto) [place] # (Auto) Eos # (Auto) Baso # (Auto) Abs Immat Gran (auto) Absolute Neuts (auto) Absolute Nucleated RBC Nucleated RBC % PT INR APTT Puncture Site ABG pH ABG pCO2 ABG pO2 ABG PO2/FiO2 Ratio ABG HCO3 ABG O2 Saturation ABG O2 Content ABG Base Excess A-a Gradient Oxyhemoglobin Carboxyhemoglobin Methemoglobin Reduced Hemoglobin Total Hemoglobin O2 Delivery Device O2 Liters/Min Minute Volume Vent Rate Vent Mode FiO2 Tidal Volume PEEP Peak Inspir Pressure Pressure Support Sodium Potassium Chloride Carbon Dioxide Anion Gap BUN Creatinine Estim Creat Clear Calc Estimated GFR Glucose POC Capillary Glucose 136 H 131 H 140 H Lactic Acid Calcium Phosphorus Magnesium Total Bilirubin AST ALT Alkaline Phosphatase Total Creatine Kinase Total Protein Albumin Triglycerides Vancomycin Trough 01/25/25 01/25/25 01/25/25 08:00 08:54 10:04 WBC RBC Hgb Hct MCV MCH MCHC RDW Plt Count MPV Immature Gran % (Auto) Neut % (Auto) Lymph % (Auto) [place] % (Auto) Eos % (Auto) Baso % (Auto) Lymph # (Auto) [place] # (Auto) Eos # (Auto) Baso # (Auto) Abs Immat Gran (auto) Absolute Neuts (auto) Absolute Nucleated RBC Nucleated RBC % PT INR APTT Puncture Site ABG pH ABG pCO2 ABG pO2 ABG PO2/FiO2 Ratio ABG HCO3 ABG O2 Saturation ABG O2 Content ABG Base Excess A-a Gradient Oxyhemoglobin Carboxyhemoglobin Methemoglobin Reduced Hemoglobin Total Hemoglobin O2 Delivery Device O2 Liters/Min Minute Volume Vent Rate Vent Mode FiO2 Tidal Volume PEEP Peak Inspir Pressure Pressure Support Sodium Potassium Chloride Carbon Dioxide Anion Gap BUN Creatinine Estim Creat Clear Calc Estimated GFR Glucose POC Capillary Glucose 136 H 140 H 136 H Lactic Acid Calcium Phosphorus Magnesium Total Bilirubin AST ALT Alkaline Phosphatase Total Creatine Kinase Total Protein Albumin Triglycerides Vancomycin Trough 01/25/25 01/25/25 01/25/25 11:05 11:11 11:49 WBC 11.3 H RBC 4.82 Hgb 16.1 Hct 47.0 MCV 97.5 MCH 33.4 MCHC 34.3 RDW 13.2 Plt Count 205 MPV 9.9 Immature Gran % (Auto) Neut % (Auto) Lymph % (Auto) [place] % (Auto) Eos % (Auto) Baso % (Auto) Lymph # (Auto) [place] # (Auto) Eos # (Auto) Baso # (Auto) Abs Immat Gran (auto) Absolute Neuts (auto) Absolute Nucleated RBC Nucleated RBC % PT 15.8 H INR 1.3 APTT 91.0 H Puncture Site ABG pH ABG pCO2 ABG pO2 ABG PO2/FiO2 Ratio ABG HCO3 ABG O2 Saturation ABG O2 Content ABG Base Excess A-a Gradient Oxyhemoglobin Carboxyhemoglobin Methemoglobin Reduced Hemoglobin Total Hemoglobin O2 Delivery Device O2 Liters/Min Minute Volume Vent Rate Vent Mode FiO2 Tidal Volume PEEP Peak Inspir Pressure Pressure Support Sodium 134 L Potassium 3.4 Chloride 104 Carbon Dioxide 26 Anion Gap 4 BUN 12 Creatinine 0.97 Estim Creat Clear Calc 82 Estimated GFR > 60 Glucose 140 H POC Capillary Glucose 120 H 128 H Lactic Acid 2.0 Calcium 8.1 L Phosphorus 3.5 Magnesium Total Bilirubin AST ALT Alkaline Phosphatase Total Creatine Kinase 188 H Total Protein Albumin Triglycerides Vancomycin Trough 8.7 L 01/25/25 01/25/25 01/25/25 13:03 14:29 15:22 WBC RBC Hgb Hct MCV MCH MCHC RDW Plt Count MPV Immature Gran % (Auto) Neut % (Auto) Lymph % (Auto) [place] % (Auto) Eos % (Auto) Baso % (Auto) Lymph # (Auto) [place] # (Auto) Eos # (Auto) Baso # (Auto) Abs Immat Gran (auto) Absolute Neuts (auto) Absolute Nucleated RBC Nucleated RBC % PT INR APTT Puncture Site ABG pH ABG pCO2 ABG pO2 ABG PO2/FiO2 Ratio ABG HCO3 ABG O2 Saturation ABG O2 Content ABG Base Excess A-a Gradient Oxyhemoglobin Carboxyhemoglobin Methemoglobin Reduced Hemoglobin Total Hemoglobin O2 Delivery Device O2 Liters/Min Minute Volume Vent Rate Vent Mode FiO2 Tidal Volume PEEP Peak Inspir Pressure Pressure Support Sodium Potassium Chloride Carbon Dioxide Anion Gap BUN Creatinine Estim Creat Clear Calc Estimated GFR Glucose POC Capillary Glucose 142 H 125 H 144 H Lactic Acid Calcium Phosphorus Magnesium Total Bilirubin AST ALT Alkaline Phosphatase Total Creatine Kinase Total Protein Albumin Triglycerides Vancomycin Trough 01/25/25 01/25/25 01/25/25 15:58 16:53 17:30 WBC RBC Hgb Hct MCV MCH MCHC RDW Plt Count MPV Immature Gran % (Auto) Neut % (Auto) Lymph % (Auto) [place] % (Auto) Eos % (Auto) Baso % (Auto) Lymph # (Auto) [place] # (Auto) Eos # (Auto) Baso # (Auto) Abs Immat Gran (auto) Absolute Neuts (auto) Absolute Nucleated RBC Nucleated RBC % PT INR APTT Puncture Site Left radial ABG pH 7.418 ABG pCO2 35.7 ABG pO2 74.0 L ABG PO2/FiO2 Ratio 1.23 ABG HCO3 22.5 ABG O2 Saturation 95.2 ABG O2 Content 21.9 ABG Base Excess -1.3 A-a Gradient 314.5 Oxyhemoglobin 93.0 Carboxyhemoglobin Methemoglobin Reduced Hemoglobin Total Hemoglobin 16.8 O2 Delivery Device Ventilator O2 Liters/Min Not Reportable Minute Volume Not Reportable Vent Rate 18 Vent Mode Cmv FiO2 60 Tidal Volume 420 PEEP 8 Peak Inspir Pressure Not Reportable Pressure Support Not Reportable Sodium Potassium Chloride Carbon Dioxide Anion Gap BUN Creatinine Estim Creat Clear Calc Estimated GFR Glucose POC Capillary Glucose 135 H 130 H Lactic Acid Calcium Phosphorus Magnesium Total Bilirubin AST ALT Alkaline Phosphatase Total Creatine Kinase Total Protein Albumin Triglycerides Vancomycin Trough 01/25/25 01/25/25 17:47 18:10 WBC RBC Hgb Hct MCV MCH MCHC RDW Plt Count MPV Immature Gran % (Auto) Neut % (Auto) Lymph % (Auto) [place] % (Auto) Eos % (Auto) Baso % (Auto) Lymph # (Auto) [place] # (Auto) Eos # (Auto) Baso # (Auto) Abs Immat Gran (auto) Absolute Neuts (auto) Absolute Nucleated RBC Nucleated RBC % PT INR APTT 75.7 H Puncture Site ABG pH ABG pCO2 ABG pO2 ABG PO2/FiO2 Ratio ABG HCO3 ABG O2 Saturation ABG O2 Content ABG Base Excess A-a Gradient Oxyhemoglobin Carboxyhemoglobin Methemoglobin Reduced Hemoglobin Total Hemoglobin O2 Delivery Device O2 Liters/Min Minute Volume Vent Rate Vent Mode FiO2 Tidal Volume PEEP Peak Inspir Pressure Pressure Support Sodium Potassium Chloride Carbon Dioxide Anion Gap BUN Creatinine Estim Creat Clear Calc Estimated GFR Glucose POC Capillary Glucose 140 H Lactic Acid 2.6 H Calcium Phosphorus Magnesium Total Bilirubin AST ALT Alkaline Phosphatase Total Creatine Kinase 154 Total Protein Albumin Triglycerides 160 H Vancomycin Trough
[2025-01-25] MEDS: ATORVASTATIN 40 MG TABLET 80 MG PO (20:19)
[2025-01-25 23:49] LABS: Anion Gap 4 mmol/L (4-12); Blood Urea Nitrogen 14 mg/dL (9-20); Calcium 8.2 mg/dL (8.4-10.2); Carbon Dioxide 25 mmol/L (22-30); Chloride 104 mmol/L (98-107); Estimated CRCL calculation 62 ml/min; Estimated Glomerular Filt Rate 53; Glucose 141 mg/dL (65-110); Potassium 4.1 mmol/L (3.4-5.0); Sodium 133 mmol/L (137-145)
[2025-01-25 23:55] LABS: Creatine Kinase 155 U/L (55-170)
[2025-01-26] VITALS (51 sets, daily range): BP systolic 80–189; BP diastolic 55–92; PULSE 55–100; RESP 18–25; TEMP 36.8–37.6; O2SAT 97–100
--- NOTE | 2025-01-26 | ECHO_ITS ---
Patient Info Name: Naif Hale Age: 79 years : 1945 Gender: Male Ht: 74 in Wt: 307 lbs BSA: 2.75 m2 HR: 74 bpm BP: 161 / 80 mmHg Technical Quality: Good Exam Date: 01/26/2025 9:50 AM Patient Status: I Admit Date: 01/23/2025 Exam Type: CA echo dop color flow w con Complete two-dimensional, color flow and Doppler transthoracic echocardiogram is performed with contrast to opacify the left ventricle and to improve the deliniation of the left ventricle endocardial borders. Staff Referring Physician: Amy Goodson MD [facility]isted Living Home Director: Sanjuanita Larry Attending Provider: Josh Hogue Oca Contrast/Agitated Saline Contrast/Ag. Saline: Definity Amount: 2.00 ml Summary 1. The aortic valve is not well visualized. There is moderate aortic stenosis. There is no aortic regurgitation. 2. The left ventricle is normal in size and systolic function. The left ventricular ejection fraction is visually estimated to be 50-55%. The inferoseptum and basal to mid inferior wall are mildly hypokinetic. Left Ventricle The left ventricle is normal in size and systolic function. The left ventricular ejection fraction is visually estimated to be 50-55%. The inferoseptum and basal to mid inferior wall are mildly hypokinetic. Right Ventricle The right ventricle is normal in size and systolic function. Left Atria The left atrium is normal size. Right Atria The right atrium is normal size. Atrial Septum The atrial septum is not well visualized. Aortic Valve The aortic valve is not well visualized. There is moderate aortic stenosis. There is no aortic regurgitation. Pulmonic Valve The pulmonic valve is not well visualized. Mitral Valve The mitral valve leaflets are sclerotic. There is no significant mitral regurgitation. Tricuspid Valve The tricuspid valve is grossly normal. Pericardium/Pleural Pericardium is normal in appearance with no evidence for significant pericardial effusion. Inferior Vena Cava Inferior vena cava is not well visualized. Aorta The aortic root at the level of the sinus of Valsalva measures 3.2 cm in diameter. Left Ventricular Outflow Tract Name Value Normal LVOT 2D LVOT Diameter 2.0 cm LVOT Doppler LVOT Peak Velocity 130 cm/s LVOT Peak Gradient 5 mmHg LVOT Mean Gradient 3 mmHg LVOT VTI 26 cm LVOT VTI/AV VTI Ratio 0.3 LVOT Stroke Volume 79 ml LVOT CO 4.8 l/min LVOT CI 1.8 l/min/m2 Pulmonic Valve Name Value Normal RVOT Doppler RVOT Peak Velocity 100 cm/s RVOT Peak Gradient 4 mmHg PV Doppler PV Peak Velocity 104 cm/s PV Peak Gradient 4 mmHg Mitral Valve Name Value Normal MV Diastolic Function MV E Peak Velocity 82 cm/s MV A Peak Velocity 65 cm/s MV E/A 1.3 MV Decel Time (PW) 277 ms MV Annular TDI MV E/e' (Septal) 19.4 MV E/e' (Lateral) 15.0 MV E/e' (Average) 17.2 Aortic Valve Name Value Normal AV Doppler AV Peak Velocity 440 cm/s AV Peak Gradient 75 mmHg AV Mean Gradient 52 mmHg AV VTI 95 cm AV Area (Cont Eq VTI) 0.8 cm2 >=3.0 AV Area (Cont Eq [place]) 0.9 cm2 AV DI ([place]) 0.29 AV Regurgitation 2D LVOT Area 3.0 cm2 Ventricles Name Value Normal LV Dimensions 2D/MM IVS Diastolic Thickness (2D) 1.1 cm 0.6-1.0 LVID Diastole (2D) 2.9 cm 4.2-5.8 LVIW Diastolic Thickness (2D) 1.2 cm 0.6-1.0 LVID Systole (2D) 2.0 cm 2.5-4.0 LVOT Diameter 2.0 cm LV Mass (2D Cubed) 92.44 g 88.00-224.00 LV Mass Index (2D Cubed) 34 g/m2 49-115 Relative Wall Thickness (2D) 0.79 <=0.42 LV Fractional Shortening/Ejection Fraction 2D/MM LV Fractional Shortening (2D) 30 % 25-43 LV EF (2D Teichholz) 59 % LV Diastolic Volume (4C MOD) 139 ml LV EF (4C MOD) 59 % LV Diastolic Volume (2C MOD) 175 ml LV EF (2C MOD) 68 % LV Diastolic Volume (BP MOD) 158 ml 62-150 LV Diastolic Volume Index (BP MOD) 57 ml/m2 34-74 LV Systolic Volume (BP MOD) 57 ml 21-61 LV Systolic Volume Index (BP MOD) 21 ml/m2 11-31 LV EF (BP MOD) 64 % 52-72 LV Diastolic Length (4C) 8.8 cm LV Systolic Length (4C) 7.2 cm LV Stroke Volume (4C MOD) 82 ml Atria Name Value Normal LA Dimensions LA Volume (4C A-L) 85 ml LA Volume (BP A-L) 89 ml RA Dimensions RA Systolic Major [place] Length (4C) 7.0 cm 2.1-2.7 RA Area (4C) 18.8 cm2 <=18.0 Report Signatures
[2025-01-26] MEDS: IPRATROPIUM 0.5 MG/ALBUTEROL SULFATE 2.5 MG (BASE) AMPUL.NEB 3 ML INHALATION ×4 (01:24→20:45)
[2025-01-26] MEDS: LACTATED RINGERS 1,000 ML 75 ML IV CONT ×2 (02:10→15:37)
[2025-01-26] MEDS: PIPERACILLIN/TAZOBACTAM SOD 3.375 GM in SODIUM CHLORIDE 0.9% IV 50 ML 100 ML IVPB ×4 (04:52→21:36)
[2025-01-26] MEDS: CENTRAL LINE FLUSH 10 ML IV PUSH ×3 (04:58→21:36)
[2025-01-26 05:12] LABS: Hematocrit 44.9 % (42.0-52.0); Hemoglobin 15.0 g/dL (14.0-18.0); Immature Granulocyte Percent A 0.5 % (0-0.5); Lymphocytes Absolute Auto 2.60 K/mm3 (0.9-3.2); Mean Corpuscular HGB Conc 33.4 g/dl (32-36); Mean Corpuscular Hemoglobin 33.1 pg (26-34); Mean Corpuscular Volume 99.1 fl (80-100); Nucleated Red Blood Cells Absolute Auto 0.000 K/mm3 (0.0-0.012); Nucleated Red Blood Cells Perc 0.0 % (0.0-0.2); Platelet Count Result 273 k/mm3 (150-375); Red Blood Count 4.53 M/mm3 (4.6-6.20); White Blood Count 12.4 K/mm3 (4.5-10.0)
[2025-01-26 05:18] LABS: Alanine Aminotransferase 44 U/L (6-50); Albumin Level 3.3 g/dL (3.5-5.1); Alkaline Phosphatase 60 U/L (38-126); Anion Gap 4 mmol/L (4-12); Aspartate Amino Transferase 65 U/L (17-59); Bilirubin,Total 0.7 mg/dL (0.2-1.3); Blood Urea Nitrogen 15 mg/dL (9-20); Calcium 8.3 mg/dL (8.4-10.2); Carbon Dioxide 26 mmol/L (22-30); Chloride 104 mmol/L (98-107); Creatine Kinase 161 U/L (55-170); Estimated CRCL calculation 57 ml/min; Estimated Glomerular Filt Rate 48; Glucose 128 mg/dL (65-110); Magnesium 1.8 mg/dL (1.6-2.3); Potassium 4.1 mmol/L (3.4-5.0); Sodium 134 mmol/L (137-145); Total Protein 6.2 g/dL (6.3-8.2)
[2025-01-26 05:22] LABS: Alveolar/Arterial O2 Gradient 265.8 mmHg; Fractional Inspired Oxygen 55 %; HCO3 ABG 22.8 mEq/l (22.0-26.0); Oxygen Content ABG 20.4 %vol (16.0-22.0); Oxygen Saturation ABG 96.4 % (95.0-100.0); PCO2 ABG 37.6 mmHg (35.0-45.0); PO2 ABG 84.5 mmHg (80.0-100.0); PO2 FiO2 Ratio Arterial Blood 1.54 %
[2025-01-26 05:27] LABS: Partial Thromboplastin Time 52.9 Seconds (22.3-36.8)
[2025-01-26 05:32] LABS: Site Drawn LEFT RADIAL
[2025-01-26] MEDS: FENTANYL 2,500MCG/NS250ML(*CRX 2,500 MCG/250 ML BAG 10 MCG IV CONT (05:32)
[2025-01-26 05:33] LABS: Arterial Blood Gas Tidal Volume 420 ml; Arterial Blood Gas Ventilator rate 18 /MIN
[2025-01-26] MEDS: PANTOPRAZOLE SODIUM IV 40 MG VIAL IV PUSH (08:01)
[2025-01-26] MEDS: ASPIRIN 81 MG ENTERIC TABLET PO (08:01)
[2025-01-26] MEDS: MINERAL OIL/WHITE PETROLATUM OINTMENT 1 APPLIC EACH EYE ×2 (08:01→21:35)
[2025-01-26] MEDS: PERFLUTREN LIPID MICROSPHERES 1.5 ML VIAL DILUTED TO 10 ML TOTAL VOLUME IV PUSH (10:26)
--- NOTE | 2025-01-26 10:27 | IVDEFINITY ---
Prior to administration of IV Definity the patient was educated on the risks and benefits of the imaging enhancing agent including potential adverse side effects. The patient verbalized understanding. Allergies were verified. No exclusion criteria were identified and at least one of the following inclusion criteria were met: 1) physician request, 2) patient technically difficult to image (per the [place] [employer] guidelines of two or more segments not discernable within the apical view), or 3) questionable left ventricular function. ?
[2025-01-26] MEDS: MIDAZOLAM 100MG/NS 100ML(*CRX) 100 MG/100 ML BAG IV CONT (10:42)
--- NOTE | 2025-01-26 10:45 | P.PNCA_ITS ---
Progress Note: A&P Assessment and Plan (1) Coronary artery disease involving [place] coronary artery of [place] heart without angina pectoris: Code(s): I25.10 - Atherosclerotic heart disease of [place] coronary artery without angina pectoris Status: Acute (2) Essential hypertension: Code(s): I10 - Essential (primary) hypertension Status: Acute (3) Cardiac arrest with ventricular fibrillation: Code(s): I46.9 - Cardiac arrest, cause unspecified; I49.01 - Ventricular fibrillation Status: Acute (4) Chronic atrial fibrillation: Code(s): I48.20 - Chronic atrial fibrillation, unspecified Status: Acute (5) History of radiofrequency ablation procedure for cardiac arrhythmia: Code(s): Z98.890 - Other specified postprocedural states Status: Acute (6) Mixed hyperlipidemia: Code(s): E78.2 - Mixed hyperlipidemia Status: Acute (7) Chronic anticoagulation: Code(s): Z79.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 Status: Acute (8) Morbid obesity with BMI of 40.0-44.9, adult: Code(s): E66.01 - Morbid (severe) obesity due to excess calories; Z68.41 - Body mass index [BMI] 40.0-44.9, adult Status: Acute Plan 79-year-old male with past medical history of hypertension, morbid obesity, chronic atrial fibrillation status post ablation on chronic anticoagulation, coronary artery disease, hypertension, systolic heart failure with LVEF of 45- 50% by echo in 2021, alcohol abuse, recent fall on [place]/ very sustained right wrist fracture placed in a splint (has superficial infection and placed on antibiotics) with VFib arrest s/p shock, CPR with ROSC. Admitted to the ICU. 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 Hold apixaban as he is on heparin drip. Continue aspirin,statin, and coreg. Restart statin once LFTs are back to normal. Cardiac catheterization and possible PCI today. Risks, benefits, and alter natives of procedure discussed with patient's son who is HCPOA. He is agreeable to proceed Add empagliflozin 10 mg p.o. daily for diastolic heart failure. TTE today. Management of other medical problems per primary team. 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 He was sedated intubated. Amiodarone was started. Cardiology was consulted as initial EKG showed ST elevation. However repeat EKGs showed atrial fibrillation without any ST elevation but with some ST depression. Given no ST elevation on EKG, patient was not taken to slab stripper emergently. Heparin drip was started. Interval history: Patient remains sedated and intubated. He was rewarmed. He has some purposeful movements of his extremities. Telemetry now shows sinus rhythm. Cardiac cath today. Review of Systems Review of Systems: A complete review of systems could not be performed as patient is intubated and sedated. Exam Narrative: General: Sedated and intubated, moving extremities Neck: Supple, unable to assess JVD due to patient being intubated Chest: Bibasilar crackles present, no rhonchi Cardiac: S1, S2 +, regular rate, regular rhythm, no murmurs or rubs Extremities: Bilateral lower extremity edema 1+, no skin rash Neurologic: Sedated and intubated, moves extremities Objective Data Vital Signs Vital Signs: Vital Signs - 24 hr 01/25/25 11:00 01/25/25 12:00 01/25/25 12:00 Temperature 32.9 C L 32.6 C L Pulse Rate 50 L 49 L 49 L Respiratory Rate 18 18 Blood Pressure 120/91 H 118/93 H 118/93 H Pulse Oximetry 100 100 Oxygen Delivery Fraction of Inspired Oxygen 01/25/25 12:00 01/25/25 12:00 01/25/25 12:00 Temperature Pulse Rate 49 L 49 L 49 L Respiratory Rate 18 18 18 Blood Pressure 118/93 H Pulse Oximetry Oxygen Delivery Fraction of Inspired Oxygen 01/25/25 12:00 01/25/25 12:00 01/25/25 12:00 Temperature Pulse Rate 49 L Respiratory Rate Blood Pressure Pulse Oximetry Oxygen Delivery Mechanical Ventilation Fraction of Inspired Oxygen 60 60 01/25/25 12:38 01/25/25 13:00 01/25/25 13:00 Temperature 32.6 C L 32.7 C L 32.7 C L Pulse Rate 49 L 48 L 48 L Respiratory Rate 18 18 18 Blood Pressure 118/84 99/71 L 99/71 L Pulse Oximetry 100 100 100 Oxygen Delivery Fraction of Inspired Oxygen 01/25/25 13:45 01/25/25 13:45 01/25/25 13:55 Temperature Pulse Rate 51 L 51 L 52 L Respiratory Rate 18 18 Blood Pressure Pulse Oximetry 100 Oxygen Delivery Mechanical Ventilation Fraction of Inspired Oxygen 60 01/25/25 14:00 01/25/25 14:00 01/25/25 14:00 Temperature 33.1 C L Pulse Rate 54 L 54 L 54 L Respiratory Rate 18 18 Blood Pressure 90/71 L 90/71 L 90/71 L Pulse Oximetry 100 Oxygen Delivery Fraction of Inspired Oxygen 01/25/25 14:00 01/25/25 14:00 01/25/25 14:00 Temperature Pulse Rate 54 L 54 L 54 L Respiratory Rate 18 18 Blood Pressure Pulse Oximetry Oxygen Delivery Fraction of Inspired Oxygen 01/25/25 14:00 01/25/25 15:00 01/25/25 16:00 Temperature 33.4 C L 34.2 C L 34.9 C L Pulse Rate 55 L 60 75 Respiratory Rate 18 18 18 Blood Pressure 98/63 L 92/63 L 93/70 L Pulse Oximetry 100 100 100 Oxygen Delivery Fraction of Inspired Oxygen 01/25/25 16:00 01/25/25 16:00 01/25/25 16:00 Temperature 35.1 C L Pulse Rate 75 62 62 Respiratory Rate 18 Blood Pressure 93/70 L 93/70 L Pulse Oximetry 100 Oxygen Delivery Fraction of Inspired Oxygen 01/25/25 16:00 01/25/25 16:00 01/25/25 16:00 Temperature Pulse Rate 62 62 62 Respiratory Rate 18 18 18 Blood Pressure 93/70 L Pulse Oximetry Oxygen Delivery Fraction of Inspired Oxygen 01/25/25 16:00 01/25/25 16:00 01/25/25 16:44 Temperature Pulse Rate 74 Respiratory Rate 18 Blood Pressure 139/83 Pulse Oximetry Oxygen Delivery Mechanical Ventilation Fraction of Inspired Oxygen 60 60 01/25/25 17:00 01/25/25 17:03 01/25/25 17:32 Temperature 35.9 C L Pulse Rate 83 52 L 83 Respiratory Rate 23 H 26 H Blood Pressure 175/109 H Pulse Oximetry 96 100 Oxygen Delivery Mechanical Ventilation Fraction of Inspired Oxygen 60 01/25/25 17:34 01/25/25 17:37 01/25/25 17:37 Temperature Pulse Rate 81 83 83 Respiratory Rate 26 H Blood Pressure 175/109 H 175/109 H Pulse Oximetry Oxygen Delivery Fraction of Inspired Oxygen 01/25/25 17:41 01/25/25 17:48 01/25/25 17:50 Temperature Pulse Rate 80 78 86 Respiratory Rate 27 H 29 H 26 H Blood Pressure Pulse Oximetry Oxygen Delivery Fraction of Inspired Oxygen 01/25/25 18:00 01/25/25 18:00 01/25/25 19:00 Temperature 36.2 C L 36.4 C Pulse Rate 75 60 72 Respiratory Rate 20 17 Blood Pressure 131/90 141/91 H Pulse Oximetry 95 96 Oxygen Delivery Fraction of Inspired Oxygen 01/25/25 19:00 01/25/25 20:00 01/25/25 20:00 Temperature 36.4 C 36.7 C Pulse Rate 78 66 Respiratory Rate 20 18 Blood Pressure 141/91 H 97/69 L Pulse Oximetry 96 98 Oxygen Delivery Fraction of Inspired Oxygen 60 01/25/25 20:00 01/25/25 20:00 01/25/25 20:00 Temperature Pulse Rate 66 66 66 Respiratory Rate 18 18 Blood Pressure 97/69 L Pulse Oximetry Oxygen Delivery Fraction of Inspired Oxygen 01/25/25 20:00 01/25/25 20:00 01/25/25 20:03 Temperature Pulse Rate 66 66 Respiratory Rate 18 Blood Pressure Pulse Oximetry 98 Oxygen Delivery Mechanical Ventilation Fraction of Inspired Oxygen 60 01/25/25 20:12 01/25/25 20:46 01/25/25 21:00 Temperature 37.0 C Pulse Rate 68 66 71 Respiratory Rate 18 18 Blood Pressure 104/69 Pulse Oximetry 99 98 Oxygen Delivery Mechanical Ventilation Fraction of Inspired Oxygen 60 01/25/25 22:00 01/25/25 22:00 01/25/25 22:00 Temperature 37.2 C Pulse Rate 66 66 66 Respiratory Rate 18 18 Blood Pressure 94/61 L Pulse Oximetry 97 Oxygen Delivery Fraction of Inspired Oxygen 01/25/25 22:00 01/25/25 22:00 01/25/25 23:00 Temperature Pulse Rate 66 66 67 Respiratory Rate 18 Blood Pressure 94/61 L Pulse Oximetry 98 Oxygen Delivery Mechanical Ventilation Fraction of Inspired Oxygen 60 01/25/25 23:00 01/26/25 00:00 01/26/25 00:00 Temperature 37.4 C Pulse Rate 68 Respiratory Rate 18 Blood Pressure 99/65 L Pulse Oximetry 98 99 Oxygen Delivery Mechanical Ventilation Fraction of Inspired Oxygen 60 60 01/26/25 00:00 01/26/25 00:00 01/26/25 00:00 Temperature 37.5 C Pulse Rate 62 62 62 Respiratory Rate 18 18 Blood Pressure 80/60 L 80/60 L Pulse Oximetry 99 Oxygen Delivery Fraction of Inspired Oxygen 01/26/25 00:00 01/26/25 00:00 01/26/25 01:00 Temperature 37.6 C Pulse Rate 62 62 64 Respiratory Rate 18 18 Blood Pressure 95/61 L Pulse Oximetry 99 Oxygen Delivery Fraction of Inspired Oxygen 01/26/25 01:25 01/26/25 01:27 01/26/25 02:00 Temperature Pulse Rate 61 61 60 Respiratory Rate 18 Blood Pressure Pulse Oximetry 98 Oxygen Delivery Mechanical Ventilation Fraction of Inspired Oxygen 55 01/26/25 02:00 01/26/25 02:00 01/26/25 02:00 Temperature 37.6 C Pulse Rate 60 60 60 Respiratory Rate 18 18 Blood Pressure 89/61 L 89/61 L Pulse Oximetry 98 Oxygen Delivery Fraction of Inspired Oxygen 01/26/25 02:00 01/26/25 03:00 01/26/25 04:00 Temperature 36.8 C Pulse Rate 60 58 L Respiratory Rate 18 18 Blood Pressure 95/61 L Pulse Oximetry 99 98 Oxygen Delivery Mechanical Ventilation Fraction of Inspired Oxygen 55 01/26/25 04:00 01/26/25 04:00 01/26/25 04:00 Temperature 37.5 C Pulse Rate 57 L 57 L Respiratory Rate 18 18 Blood Pressure 82/66 L Pulse Oximetry 99 Oxygen Delivery Fraction of Inspired Oxygen 60 01/26/25 04:00 01/26/25 04:00 01/26/25 04:00 Temperature Pulse Rate 56 L 57 L 57 L Respiratory Rate 18 Blood Pressure 82/66 L Pulse Oximetry Oxygen Delivery Fraction of Inspired Oxygen 01/26/25 05:00 01/26/25 05:00 01/26/25 05:32 Temperature 37.6 C H Pulse Rate 71 58 L 68 Respiratory Rate 18 18 Blood Pressure 120/75 Pulse Oximetry 97 97 Oxygen Delivery Mechanical Ventilation Fraction of Inspired Oxygen 55 01/26/25 05:32 01/26/25 06:00 01/26/25 06:00 Temperature 37.5 C Pulse Rate 68 63 63 Respiratory Rate 18 18 Blood Pressure 105/61 Pulse Oximetry 97 Oxygen Delivery Fraction of Inspired Oxygen 01/26/25 06:00 01/26/25 06:00 01/26/25 06:00 Temperature Pulse Rate 63 63 63 Respiratory Rate 18 18 Blood Pressure 105/61 Pulse Oximetry Oxygen Delivery Fraction of Inspired Oxygen 01/26/25 07:00 01/26/25 07:20 01/26/25 07:20 Temperature 37.4 C Pulse Rate 58 L 57 L 57 L Respiratory Rate 18 19 Blood Pressure 97/60 L Pulse Oximetry 99 99 Oxygen Delivery Mechanical Ventilation Fraction of Inspired Oxygen 55 01/26/25 08:00 01/26/25 08:00 01/26/25 08:00 Temperature 37.4 C Pulse Rate 65 65 65 Respiratory Rate 18 18 18 Blood Pressure 125/70 Pulse Oximetry 100 Oxygen Delivery Fraction of Inspired Oxygen 01/26/25 08:00 01/26/25 08:00 01/26/25 08:00 Temperature Pulse Rate 62 Respiratory Rate Blood Pressure 125/70 Pulse Oximetry Oxygen Delivery Mechanical Ventilation Fraction of Inspired Oxygen 55 55 01/26/25 08:00 01/26/25 08:33 01/26/25 08:34 Temperature Pulse Rate 64 62 62 Respiratory Rate 18 18 Blood Pressure Pulse Oximetry Oxygen Delivery Fraction of Inspired Oxygen 01/26/25 09:00 01/26/25 09:25 01/26/25 10:00 Temperature 37.4 C 37.4 C Pulse Rate 58 L 59 L 66 Respiratory Rate 18 18 18 Blood Pressure 101/57 L 117/68 Pulse Oximetry 99 100 Oxygen Delivery Fraction of Inspired Oxygen 01/26/25 10:00 01/26/25 10:00 01/26/25 10:00 Temperature Pulse Rate 66 66 66 Respiratory Rate 18 18 Blood Pressure 117/68 Pulse Oximetry Oxygen Delivery Fraction of Inspired Oxygen 01/26/25 10:00 01/26/25 10:42 01/26/25 10:42 Temperature Pulse Rate 66 61 61 Respiratory Rate 18 18 Blood Pressure Pulse Oximetry Oxygen Delivery Fraction of Inspired Oxygen Intake/Output Intake/Output: Intake & Output 01/23/25 01/24/25 01/25/25 01/26/25 23:59 23:59 23:59 23:59 Intake Total 33.3 4480.4 2237.0 1538.8 Output Total 600 1635 757 275 Balance -566.7 2845.4 1480.0 1263.8 Meds/Results Medications: Active Medications Generic Name Dose Route Start Last Admin Trade Name Freq PRN Reason Stop Dose Admin Albuterol/Ipratropium 3 ml 01/24/25 02:00 01/26/25 07:20 Ipratropium 0.5 Mg/Albuterol Sulfate 2.5 Mg (Base) Ampul.Neb 3 Ml INHALATION 3 ml Q6HRT JOCELYNE Administration Aspirin 81 mg 01/24/25 12:00 01/26/25 08:01 Aspirin 81 Mg Enteric Tablet PO 81 mg QAM JOCELYNE Administration Atorvastatin Calcium 80 mg 01/24/25 21:00 01/25/25 20:19 Atorvastatin 40 Mg Tablet PO 80 mg QHS JOCELYNE Administration Carvedilol 3.125 mg 01/24/25 21:00 Carvedilol 3.125 Mg Tablet PO On Hold: 01/24/25 21:00 Q12HR JOCELYNE Heparin Sodium (Porcine) 4,000 units 01/23/25 17:10 01/26/25 05:41 Heparin Sodium 5,000 Units/Ml Vial IV PUSH 4,000 units PRN PRN Administration aPTT less than 55 seconds Heparin Sodium (Porcine) 4,000 units 01/23/25 17:10 Heparin Sodium 5,000 Units/Ml Vial IV PUSH PRN PRN aPTT 55 - 70 seconds Hydralazine HCl 10 mg 01/24/25 11:31 01/24/25 14:05 Hydralazine Hcl 20 Mg/Ml Vial IV PUSH 10 mg Q4H PRN Administration Blood Pressure - High Heparin Sodium/Dextrose 25,000 units in 250 mls @ 11 mls/hr 01/23/25 17:10 01/26/25 08:00 Heparin Sodium/D5w 100 Units/Ml IV CONT 1,100 units/hr .[id number] JOCELYNE 11 mls/hr Protocol Titration 1,100 UNITS/HR Fentanyl Citrate 2,500 mcg in 250 mls @ 5 mls/hr 01/23/25 21:15 01/26/25 10:00 Fentanyl 2,500 Mcg/Ns 250 Ml IV CONT 50 mcg/hr .Q50H JOCELYNE 5 mls/hr Protocol Titration 50 MCG/HR Piperacillin Sod/Tazobactam 50 mls @ 100 mls/hr 01/23/25 22:00 01/26/25 09:50 Sod 3.375 gm/ Sodium Chloride IVPB Infused Q6H JOCELYNE Infusion Lactated Ringer's 1,000 mls @ 75 mls/hr 01/24/25 10:00 01/26/25 02:10 Lr - Lactated Ringers Iv IV CONT 75 mls/hr .[id number] JOCELYNE Administration Midazolam HCl 100 mg in 100 mls @ 2 mls/hr 01/24/25 12:20 01/26/25 10:42 Versed 100 Mg/Ns 100 Ml IV CONT 2 mg/hr .Q50H JOCELYNE 2 mls/hr Protocol Administration 2 MG/HR Lidocaine HCl/Dextrose 2 gm in 500 mls @ 15 mls/hr 01/24/25 13:30 01/26/25 10:00 Lidocaine In D5w 4 Mg/Ml IV CONT 1 mg/min .Q24H JOCELYNE 15 mls/hr 1 MG/MIN Infusion Multi-Ingred Cream/Lotion/Oil/Oint 1 applic 01/24/25 09:00 01/26/25 08:01 Mineral Oil/White Petrolatum Ointment EACH EYE 1 applic Q12HR JOCELYNE Administration Pantoprazole Sodium 40 mg 01/24/25 09:00 01/26/25 08:01 Pantoprazole Sodium Iv 40 Mg Vial IV PUSH 40 mg DAILY JOCELYNE Administration Sodium Chloride 10 ml 01/24/25 06:00 01/26/25 04:58 Central Line Flush IV PUSH 10 ml Q8HR JOCELYNE Administration Sodium Chloride 20 ml 01/23/25 22:48 Central Line Flush IV PUSH PRN PRN after blood draws Radiology Results: ITS Impressions Head CT 01/23/25 19:11 IMPRESSION: No acute intracranial hemorrhage or extra axial fluid collections. Bilateral mastoiditis. All CT scans at this facility are performed using low dose modulation techniques as appropriate to perform exam including the following: automated exposure control; use of iterative reconstruction technique; adjustment of the mA and/or kV according to patient size (this includes techniques or standardized protocols for targeted exams where dose is matched to indication/reason for exam). Chest/Abdomen/Pelvis CT 01/23/25 19:16 IMPRESSION: Bilateral lower lobe consolidation may represent pneumonia. No acute abdominal or pelvic findings. All CT scans at this facility are performed using low dose modulation techniques as appropriate to perform exam including the following: automated exposure control; use of iterative reconstruction technique; adjustment of the mA and/or kV according to patient size (this includes techniques or standardized protocols for targeted exams where dose is matched to indication/reason for exam). Venous Doppler Study 01/24/25 11:45 IMPRESSION: 1. No DVT either leg. Ankle Brachial Index 01/24/25 11:52 IMPRESSION: 1. Artery pressures and the pressures at the right and left brachial, posterior tibial and dorsalis pedis arteries were unable to be obtained likely due to markedly increased pressures with right and left great toe pressures of 212 and 214 mmHg respectively. Chest X-Ray 01/26/25 08:17 Impression: 1: NG tube in the stomach. 2: Diffuse bilateral airspace disease, most likely edema. There is linear infiltrates of the left perihilar and right basilar locations which may represent superimposed pneumonia and/or atelectasis. Labs Labs: Laboratory Results - last 24 hr 01/25/25 01/25/25 01/25/25 11:05 11:11 11:49 WBC 11.3 H RBC 4.82 Hgb 16.1 Hct 47.0 MCV 97.5 MCH 33.4 MCHC 34.3 RDW 13.2 Plt Count 205 MPV 9.9 Immature Gran % (Auto) Neut % (Auto) Lymph % (Auto) [place] % (Auto) Eos % (Auto) Baso % (Auto) Lymph # (Auto) [place] # (Auto) Eos # (Auto) Baso # (Auto) Abs Immat Gran (auto) Absolute Neuts (auto) Absolute Nucleated RBC Nucleated RBC % PT 15.8 H INR 1.3 APTT 91.0 H Puncture Site ABG pH ABG pCO2 ABG pO2 ABG PO2/FiO2 Ratio ABG HCO3 ABG O2 Saturation ABG O2 Content ABG Base Excess A-a Gradient Oxyhemoglobin Total Hemoglobin O2 Delivery Device O2 Liters/Min Minute Volume Vent Rate Vent Mode FiO2 Tidal Volume PEEP Peak Inspir Pressure Pressure Support Sodium 134 L Potassium 3.4 Chloride 104 Carbon Dioxide 26 Anion Gap 4 BUN 12 Creatinine 0.97 Estim Creat Clear Calc 82 Estimated GFR > 60 Glucose 140 H POC Capillary Glucose 120 H 128 H Lactic Acid 2.0 Calcium 8.1 L Phosphorus 3.5 Magnesium Total Bilirubin AST ALT Alkaline Phosphatase Total Creatine Kinase 188 H Total Protein Albumin Triglycerides Vancomycin Trough 8.7 L 01/25/25 01/25/25 01/25/25 13:03 14:29 15:22 WBC RBC Hgb Hct MCV MCH MCHC RDW Plt Count MPV Immature Gran % (Auto) Neut % (Auto) Lymph % (Auto) [place] % (Auto) Eos % (Auto) Baso % (Auto) Lymph # (Auto) [place] # (Auto) Eos # (Auto) Baso # (Auto) Abs Immat Gran (auto) Absolute Neuts (auto) Absolute Nucleated RBC Nucleated RBC % PT INR APTT Puncture Site ABG pH ABG pCO2 ABG pO2 ABG PO2/FiO2 Ratio ABG HCO3 ABG O2 Saturation ABG O2 Content ABG Base Excess A-a Gradient Oxyhemoglobin Total Hemoglobin O2 Delivery Device O2 Liters/Min Minute Volume Vent Rate Vent Mode FiO2 Tidal Volume PEEP Peak Inspir Pressure Pressure Support Sodium Potassium Chloride Carbon Dioxide Anion Gap BUN Creatinine Estim Creat Clear Calc Estimated GFR Glucose POC Capillary Glucose 142 H 125 H 144 H Lactic Acid Calcium Phosphorus Magnesium Total Bilirubin AST ALT Alkaline Phosphatase Total Creatine Kinase Total Protein Albumin Triglycerides Vancomycin Trough 01/25/25 01/25/25 01/25/25 15:58 16:53 17:30 WBC RBC Hgb Hct MCV MCH MCHC RDW Plt Count MPV Immature Gran % (Auto) Neut % (Auto) Lymph % (Auto) [place] % (Auto) Eos % (Auto) Baso % (Auto) Lymph # (Auto) [place] # (Auto) Eos # (Auto) Baso # (Auto) Abs Immat Gran (auto) Absolute Neuts (auto) Absolute Nucleated RBC Nucleated RBC % PT INR APTT Puncture Site Left radial ABG pH 7.418 ABG pCO2 35.7 ABG pO2 74.0 L ABG PO2/FiO2 Ratio 1.23 ABG HCO3 22.5 ABG O2 Saturation 95.2 ABG O2 Content 21.9 ABG Base Excess -1.3 A-a Gradient 314.5 Oxyhemoglobin 93.0 Total Hemoglobin 16.8 O2 Delivery Device Ventilator O2 Liters/Min Not Reportable Minute Volume Not Reportable Vent Rate 18 Vent Mode Cmv FiO2 60 Tidal Volume 420 PEEP 8 Peak Inspir Pressure Not Reportable Pressure Support Not Reportable Sodium Potassium Chloride Carbon Dioxide Anion Gap BUN Creatinine Estim Creat Clear Calc Estimated GFR Glucose POC Capillary Glucose 135 H 130 H Lactic Acid Calcium Phosphorus Magnesium Total Bilirubin AST ALT Alkaline Phosphatase Total Creatine Kinase Total Protein Albumin Triglycerides Vancomycin Trough 01/25/25 01/25/25 01/25/25 17:47 18:10 20:19 WBC RBC Hgb Hct MCV MCH MCHC RDW Plt Count MPV Immature Gran % (Auto) Neut % (Auto) Lymph % (Auto) [place] % (Auto) Eos % (Auto) Baso % (Auto) Lymph # (Auto) [place] # (Auto) Eos # (Auto) Baso # (Auto) Abs Immat Gran (auto) Absolute Neuts (auto) Absolute Nucleated RBC Nucleated RBC % PT INR APTT 75.7 H Puncture Site ABG pH ABG pCO2 ABG pO2 ABG PO2/FiO2 Ratio ABG HCO3 ABG O2 Saturation ABG O2 Content ABG Base Excess A-a Gradient Oxyhemoglobin Total Hemoglobin O2 Delivery Device O2 Liters/Min Minute Volume Vent Rate Vent Mode FiO2 Tidal Volume PEEP Peak Inspir Pressure Pressure Support Sodium Potassium Chloride Carbon Dioxide Anion Gap BUN Creatinine Estim Creat Clear Calc Estimated GFR Glucose POC Capillary Glucose 140 H Lactic Acid 2.6 H 3.5 H Calcium Phosphorus Magnesium Total Bilirubin AST ALT Alkaline Phosphatase Total Creatine Kinase 154 Total Protein Albumin Triglycerides 160 H Vancomycin Trough 01/25/25 01/25/25 01/26/25 23:22 23:24 05:00 WBC 12.4 H RBC 4.53 L Hgb 15.0 Hct 44.9 MCV 99.1 MCH 33.1 MCHC 33.4 RDW 13.7 Plt Count 273 MPV 10.3 Immature Gran % (Auto) 0.5 Neut % (Auto) 69.5 Lymph % (Auto) 20.9 [place] % (Auto) 8.8 H Eos % (Auto) 0.1 Baso % (Auto) 0.2 Lymph # (Auto) 2.60 [place] # (Auto) 1.1 H Eos # (Auto) 0.0 Baso # (Auto) 0.0 Abs Immat Gran (auto) 0.06 H Absolute Neuts (auto) 8.6 H Absolute Nucleated RBC 0.000 Nucleated RBC % 0.0 PT INR APTT 52.9 H Puncture Site ABG pH ABG pCO2 ABG pO2 ABG PO2/FiO2 Ratio ABG HCO3 ABG O2 Saturation ABG O2 Content ABG Base Excess A-a Gradient Oxyhemoglobin Total Hemoglobin O2 Delivery Device O2 Liters/Min Minute Volume Vent Rate Vent Mode FiO2 Tidal Volume PEEP Peak Inspir Pressure Pressure Support Sodium 133 L 134 L Potassium 4.1 4.1 Chloride 104 104 Carbon Dioxide 25 26 Anion Gap 4 4 BUN 14 15 Creatinine 1.30 1.42 H Estim Creat Clear Calc 62 57 Estimated GFR 53 L 48 L Glucose 141 H 128 H POC Capillary Glucose 126 H Lactic Acid 2.6 H 2.3 H Calcium 8.2 L 8.3 L Phosphorus 3.5 Magnesium 1.8 Total Bilirubin 0.7 AST 65 H ALT 44 Alkaline Phosphatase 60 Total Creatine Kinase 155 161 Total Protein 6.2 L Albumin 3.3 L Triglycerides Vancomycin Trough 01/26/25 01/26/25 05:03 05:54 WBC RBC Hgb Hct MCV MCH MCHC RDW Plt Count MPV Immature Gran % (Auto) Neut % (Auto) Lymph % (Auto) [place] % (Auto) Eos % (Auto) Baso % (Auto) Lymph # (Auto) [place] # (Auto) Eos # (Auto) Baso # (Auto) Abs Immat Gran (auto) Absolute Neuts (auto) Absolute Nucleated RBC Nucleated RBC % PT INR APTT Puncture Site Left radial ABG pH 7.400 ABG pCO2 37.6 ABG pO2 84.5 ABG PO2/FiO2 Ratio 1.54 ABG HCO3 22.8 ABG O2 Saturation 96.4 ABG O2 Content 20.4 ABG Base Excess -1.6 A-a Gradient 265.8 Oxyhemoglobin 95.2 Total Hemoglobin 15.2 O2 Delivery Device Ventilator O2 Liters/Min Not Reportable Minute Volume Not Reportable Vent Rate 18 Vent Mode Cmv FiO2 55 Tidal Volume 420 PEEP 8 Peak Inspir Pressure Not Reportable Pressure Support Not Reportable Sodium Potassium Chloride Carbon Dioxide Anion Gap BUN Creatinine Estim Creat Clear Calc Estimated GFR Glucose POC Capillary Glucose 143 H Lactic Acid Calcium Phosphorus Magnesium Total Bilirubin AST ALT Alkaline Phosphatase Total Creatine Kinase Total Protein Albumin Triglycerides Vancomycin Trough
--- NOTE | 2025-01-26 10:49 | WPDHPUPDATE1 ---
History and Physical Update Update Date/Time: 01/26/25 10:49 History and Physical has been reviewed, including an updated exam of the patient. There are NO changes in the patient's condition. Risks, benefits, and alternatives have been discussed and questions answered. Patient agrees to proceed with procedure.
--- NOTE | 2025-01-26 10:51 | P.SEDATION_ITS ---
Moderate Sedation Note-Pt Data Patient Data Diagnosis: NSTEMI Allergies Allergy/AdvReac Type Severity Reaction Status Date / Time hydrochlorothiazide Allergy Intermediate Unknown Verified 01/24/25 00:48 lisinopril Allergy Intermediate Unknown Verified 01/24/25 00:48 Home Medications ?Medication ?Instructions ?Recorded ?Confirmed ?Type cholecalciferol (vitamin D3) 125 5,000 unit PO DAILY 0 04/04/19 01/24/25 History mcg (5,000 unit) tablet cyanocobalamin (vitamin B-12) 1,000 mcg PO DAILY 10/2801/24/25 History 1,000 mcg tablet apixaban 5 mg tablet (Eliquis) 5 mg PO BID #60 tabs 01/24/25 Rx atorvastatin 80 mg tablet 80 mg PO QHS #90 tabs 01/24/25 Rx fexofenadine 180 mg tablet 180 mg PO DAILY chronic se asonal 05/12/24 01/24/25 Rx (Aliza Allergy) allergic rhinitis #30 tabs amiodarone 100 mg tablet 100 mg PO DAILY #90 tabs 01/24/25 Rx carvedilol 6.25 mg tablet 6.25 mg PO Q12H #180 tabs 01/24/25 Rx escitalopram oxalate 20 mg tablet 20 mg PO DAILY #90 t abs 06/21/24 01/24/25 Rx (Lexapro) irbesartan 150 mg tablet 150 mg PO DAILY #90 tabs 01/24/25 Rx Current Medications: Active Medications Albuterol/Ipratropium (Ipratropium 0.5 Mg/Albuterol Sulfate 2.5 Mg (Base) Ampul.Neb 3 Ml) 3 ml INHALATION Q6HRT [facility] Last Admin: 01/26/25 07:20 Dose: 3 ml Aspirin (Aspirin 81 Mg Enteric Tablet) 81 mg PO QAM [facility] Last Admin: 01/26/25 08:01 Dose: 81 mg Atorvastatin Calcium (Atorvastatin 40 Mg Tablet) 80 mg PO QHS [facility] Last Admin: 01/25/25 20:19 Dose: 80 mg Carvedilol (Carvedilol 3.125 Mg Tablet) 3.125 mg PO Q12HR [facility] On Hold: 01/24/25 21:00 Empagliflozin (Empagliflozin 10 Mg Tablet) 10 mg PO DAILY [facility] Heparin Sodium (Porcine) (Heparin Sodium 5,000 Units/Ml Vial) 4,000 units IV PUSH PRN PRN PRN Reason: aPTT less than 55 seconds Last Admin: 01/26/25 05:41 Dose: 4,000 units Heparin Sodium (Porcine) (Heparin Sodium 5,000 Units/Ml Vial) 4,000 units IV PUSH PRN PRN PRN Reason: aPTT 55 - 70 seconds Hydralazine HCl (Hydralazine Hcl 20 Mg/Ml Vial) 10 mg IV PUSH Q4H PRN PRN Reason: Blood Pressure - High Last Admin: 01/24/25 14:05 Dose: 10 mg Heparin Sodium/Dextrose (Heparin Sodium/D5w 100 Units/Ml) 25,000 units in 250 mls @ 11 mls/hr IV CONT .[id number] [facility]; Protocol Last Titration: 01/26/25 10:46 Dose: 0 units/hr, 0 mls/hr Fentanyl Citrate (Fentanyl 2,500 Mcg/Ns 250 Ml) 2,500 mcg in 250 mls @ 5 mls/hr IV CONT .Q50H [facility]; Protocol Last Titration: 01/26/25 10:00 Dose: 50 mcg/hr, 5 mls/hr Piperacillin Sod/Tazobactam (Sod 3.375 gm/ Sodium Chloride) 50 mls @ 100 mls/hr IVPB Q6H [facility] Last Infusion: 01/26/25 09:50 Dose: Infused Lactated Ringer's (Lr - Lactated Ringers Iv) 1,000 mls @ 75 mls/hr IV CONT .[id number] [facility] Last Admin: 01/26/25 02:10 Dose: 75 mls/hr Midazolam HCl (Versed 100 Mg/Ns 100 Ml) 100 mg in 100 mls @ 2 mls/hr IV CONT .Q50H [facility]; Protocol Last Admin: 01/26/25 10:42 Dose: 2 mg/hr, 2 mls/hr Lidocaine HCl/Dextrose (Lidocaine In D5w 4 Mg/Ml) 2 gm in 500 mls @ 15 mls/hr IV CONT .Q24H [facility] Last Infusion: 01/26/25 10:00 Dose: 1 mg/min, 15 mls/hr Multi-Ingred Cream/Lotion/Oil/Oint (Mineral Oil/White Petrolatum Ointment) 1 applic EACH EYE Q12HR [facility] Last Admin: 01/26/25 08:01 Dose: 1 applic Pantoprazole Sodium (Pantoprazole Sodium Iv 40 Mg Vial) 40 mg IV PUSH DAILY [facility] Last Admin: 01/26/25 08:01 Dose: 40 mg Sodium Chloride (Central Line Flush) 10 ml IV PUSH Q8HR [facility] Last Admin: 01/26/25 04:58 Dose: 10 ml Sodium Chloride (Central Line Flush) 20 ml IV PUSH PRN PRN PRN Reason: after blood draws Sedation/Anesthesia: No previous sedation/anesthesia problems (including family history). 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 Encounter for prostate cancer screening PSA 1.53n 06/10/24. 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 APAP at 5-16 cm of water pressure 06/04/2020 Abnormal fasting glucose (04/03/20) Fasting glucose 105, hemoglobin A1c 5.9 with microalbumin ratio of 6 with GFR 87 on 06/10/2024. BMI 37.0-37.9, adult Chronic anxiety Chronic depression Eczema Vitamin B12 deficiency anemia Level normal at 1457 with hemoglobin 15.7 on 06/10/2024. Vitamin D deficiency, unspecified Level normal at 36 on 06/10/2024. Hypogonadism male Chronic sinusitis Chronic serous otitis media of right ear Bilateral hearing loss Chronic bilateral low back pain with right-sided sciatica Surgical History Surgical History (Updated 01/23/25 @ 21:05 by Alla Porter APRN) H/O cardiac catheterization History of tonsillectomy History of radiofrequency ablation procedure for cardiac arrhythmia A flutter ablation, [facility] Status post cataract extraction of both eyes with insertion of intraocular lens History of cardiac radiofrequency ablation 5 years ago for AFib History of bowel resection 19 years old Family History Family History Mother Patient's mother is , Onset Age: 92 Acute myocardial infarction Skin cancer Father Family history of cardiovascular disease, Onset Age: 57 Acute myocardial infarction Social History Social History (Updated 01/23/25 @ 20:58 by Alla Porter APRN) Social History: He drinks 2-3 bottles of wine a night. No drug use except occasional marijuana use. Quit tobacco at age 28 after smoking 2 packs a day for 10 years. He lives alone. He is but it sounds like he still is in contact with his ex- quite frequently lives in [facility]. He has 2 step children. He has 1 son who is still living and a daughter who of alcohol and drug use. Code status: full code Surrogate decision maker for healthcare: Juan Pablo (son) Smoking packs per day: 2 Smoking cigarettes per day: 40.0 Years smoked: 11 Smoking pack-years: 22.00 Smoking status: Former smoker Tobacco type: cigarettes and cigars Alcohol intake: current Drinks per week: 70 Alcohol use details: beer or wine Varies, sometimes has a bottle of wine with his meal daily Substance use: former Substance use type: marijuana Spiritual care concerns: No Internal Medicine - PN: Obj Da Vital Signs Vital Signs: Vital Signs - 24 hr 01/25/25 11:00 01/25/25 12:00 01/25/25 12:00 Temperature 32.9 C L 32.6 C L Pulse Rate 50 L 49 L 49 L Respiratory Rate 18 18 Blood Pressure 120/91 H 118/93 H 118/93 H Pulse Oximetry 100 100 Oxygen Delivery Fraction of Inspired Oxygen 01/25/25 12:00 01/25/25 12:00 01/25/25 12:00 Temperature Pulse Rate 49 L 49 L 49 L Respiratory Rate 18 18 18 Blood Pressure 118/93 H Pulse Oximetry Oxygen Delivery Fraction of Inspired Oxygen 01/25/25 12:00 01/25/25 12:00 01/25/25 12:00 Temperature Pulse Rate 49 L Respiratory Rate Blood Pressure Pulse Oximetry Oxygen Delivery Mechanical Ventilation Fraction of Inspired Oxygen 60 60 01/25/25 12:38 01/25/25 13:00 01/25/25 13:00 Temperature 32.6 C L 32.7 C L 32.7 C L Pulse Rate 49 L 48 L 48 L Respiratory Rate 18 18 18 Blood Pressure 118/84 99/71 L 99/71 L Pulse Oximetry 100 100 100 Oxygen Delivery Fraction of Inspired Oxygen 01/25/25 13:45 01/25/25 13:45 01/25/25 13:55 Temperature Pulse Rate 51 L 51 L 52 L Respiratory Rate 18 18 Blood Pressure Pulse Oximetry 100 Oxygen Delivery Mechanical Ventilation Fraction of Inspired Oxygen 60 01/25/25 14:00 01/25/25 14:00 01/25/25 14:00 Temperature 33.1 C L Pulse Rate 54 L 54 L 54 L Respiratory Rate 18 18 Blood Pressure 90/71 L 90/71 L 90/71 L Pulse Oximetry 100 Oxygen Delivery Fraction of Inspired Oxygen 01/25/25 14:00 01/25/25 14:00 01/25/25 14:00 Temperature Pulse Rate 54 L 54 L 54 L Respiratory Rate 18 18 Blood Pressure Pulse Oximetry Oxygen Delivery Fraction of Inspired Oxygen 01/25/25 14:00 01/25/25 15:00 01/25/25 16:00 Temperature 33.4 C L 34.2 C L 34.9 C L Pulse Rate 55 L 60 75 Respiratory Rate 18 18 18 Blood Pressure 98/63 L 92/63 L 93/70 L Pulse Oximetry 100 100 100 Oxygen Delivery Fraction of Inspired Oxygen 01/25/25 16:00 01/25/25 16:00 01/25/25 16:00 Temperature 35.1 C L Pulse Rate 75 62 62 Respiratory Rate 18 Blood Pressure 93/70 L 93/70 L Pulse Oximetry 100 Oxygen Delivery Fraction of Inspired Oxygen 01/25/25 16:00 01/25/25 16:00 01/25/25 16:00 Temperature Pulse Rate 62 62 62 Respiratory Rate 18 18 18 Blood Pressure 93/70 L Pulse Oximetry Oxygen Delivery Fraction of Inspired Oxygen 01/25/25 16:00 01/25/25 16:00 01/25/25 16:44 Temperature Pulse Rate 74 Respiratory Rate 18 Blood Pressure 139/83 Pulse Oximetry Oxygen Delivery Mechanical Ventilation Fraction of Inspired Oxygen 60 60 01/25/25 17:00 01/25/25 17:03 01/25/25 17:32 Temperature 35.9 C L Pulse Rate 83 52 L 83 Respiratory Rate 23 H 26 H Blood Pressure 175/109 H Pulse Oximetry 96 100 Oxygen Delivery Mechanical Ventilation Fraction of Inspired Oxygen 60 01/25/25 17:34 01/25/25 17:37 01/25/25 17:37 Temperature Pulse Rate 81 83 83 Respiratory Rate 26 H Blood Pressure 175/109 H 175/109 H Pulse Oximetry Oxygen Delivery Fraction of Inspired Oxygen 01/25/25 17:41 01/25/25 17:48 01/25/25 17:50 Temperature Pulse Rate 80 78 86 Respiratory Rate 27 H 29 H 26 H Blood Pressure Pulse Oximetry Oxygen Delivery Fraction of Inspired Oxygen 01/25/25 18:00 01/25/25 18:00 01/25/25 19:00 Temperature 36.2 C L 36.4 C Pulse Rate 75 60 72 Respiratory Rate 20 17 Blood Pressure 131/90 141/91 H Pulse Oximetry 95 96 Oxygen Delivery Fraction of Inspired Oxygen 01/25/25 19:00 01/25/25 20:00 01/25/25 20:00 Temperature 36.4 C 36.7 C Pulse Rate 78 66 Respiratory Rate 20 18 Blood Pressure 141/91 H 97/69 L Pulse Oximetry 96 98 Oxygen Delivery Fraction of Inspired Oxygen 60 01/25/25 20:00 01/25/25 20:00 01/25/25 20:00 Temperature Pulse Rate 66 66 66 Respiratory Rate 18 18 Blood Pressure 97/69 L Pulse Oximetry Oxygen Delivery Fraction of Inspired Oxygen 01/25/25 20:00 01/25/25 20:00 01/25/25 20:03 Temperature Pulse Rate 66 66 Respiratory Rate 18 Blood Pressure Pulse Oximetry 98 Oxygen Delivery Mechanical Ventilation Fraction of Inspired Oxygen 60 01/25/25 20:12 01/25/25 20:46 01/25/25 21:00 Temperature 37.0 C Pulse Rate 68 66 71 Respiratory Rate 18 18 Blood Pressure 104/69 Pulse Oximetry 99 98 Oxygen Delivery Mechanical Ventilation Fraction of Inspired Oxygen 60 01/25/25 22:00 01/25/25 22:00 01/25/25 22:00 Temperature 37.2 C Pulse Rate 66 66 66 Respiratory Rate 18 18 Blood Pressure 94/61 L Pulse Oximetry 97 Oxygen Delivery Fraction of Inspired Oxygen 01/25/25 22:00 01/25/25 22:00 01/25/25 23:00 Temperature Pulse Rate 66 66 67 Respiratory Rate 18 Blood Pressure 94/61 L Pulse Oximetry 98 Oxygen Delivery Mechanical Ventilation Fraction of Inspired Oxygen 60 01/25/25 23:00 01/26/25 00:00 01/26/25 00:00 Temperature 37.4 C Pulse Rate 68 Respiratory Rate 18 Blood Pressure 99/65 L Pulse Oximetry 98 99 Oxygen Delivery Mechanical Ventilation Fraction of Inspired Oxygen 60 60 01/26/25 00:00 01/26/25 00:00 01/26/25 00:00 Temperature 37.5 C Pulse Rate 62 62 62 Respiratory Rate 18 18 Blood Pressure 80/60 L 80/60 L Pulse Oximetry 99 Oxygen Delivery Fraction of Inspired Oxygen 01/26/25 00:00 01/26/25 00:00 01/26/25 01:00 Temperature 37.6 C Pulse Rate 62 62 64 Respiratory Rate 18 18 Blood Pressure 95/61 L Pulse Oximetry 99 Oxygen Delivery Fraction of Inspired Oxygen 01/26/25 01:25 01/26/25 01:27 01/26/25 02:00 Temperature Pulse Rate 61 61 60 Respiratory Rate 18 Blood Pressure Pulse Oximetry 98 Oxygen Delivery Mechanical Ventilation Fraction of Inspired Oxygen 55 01/26/25 02:00 01/26/25 02:00 01/26/25 02:00 Temperature 37.6 C Pulse Rate 60 60 60 Respiratory Rate 18 18 Blood Pressure 89/61 L 89/61 L Pulse Oximetry 98 Oxygen Delivery Fraction of Inspired Oxygen 01/26/25 02:00 01/26/25 03:00 01/26/25 04:00 Temperature 36.8 C Pulse Rate 60 58 L Respiratory Rate 18 18 Blood Pressure 95/61 L Pulse Oximetry 99 98 Oxygen Delivery Mechanical Ventilation Fraction of Inspired Oxygen 55 01/26/25 04:00 01/26/25 04:00 01/26/25 04:00 Temperature 37.5 C Pulse Rate 57 L 57 L Respiratory Rate 18 18 Blood Pressure 82/66 L Pulse Oximetry 99 Oxygen Delivery Fraction of Inspired Oxygen 60 01/26/25 04:00 01/26/25 04:00 01/26/25 04:00 Temperature Pulse Rate 56 L 57 L 57 L Respiratory Rate 18 Blood Pressure 82/66 L Pulse Oximetry Oxygen Delivery Fraction of Inspired Oxygen 01/26/25 05:00 01/26/25 05:00 01/26/25 05:32 Temperature 37.6 C H Pulse Rate 71 58 L 68 Respiratory Rate 18 18 Blood Pressure 120/75 Pulse Oximetry 97 97 Oxygen Delivery Mechanical Ventilation Fraction of Inspired Oxygen 55 01/26/25 05:32 01/26/25 06:00 01/26/25 06:00 Temperature 37.5 C Pulse Rate 68 63 63 Respiratory Rate 18 18 Blood Pressure 105/61 Pulse Oximetry 97 Oxygen Delivery Fraction of Inspired Oxygen 01/26/25 06:00 01/26/25 06:00 01/26/25 06:00 Temperature Pulse Rate 63 63 63 Respiratory Rate 18 18 Blood Pressure 105/61 Pulse Oximetry Oxygen Delivery Fraction of Inspired Oxygen 01/26/25 07:00 01/26/25 07:20 01/26/25 07:20 Temperature 37.4 C Pulse Rate 58 L 57 L 57 L Respiratory Rate 18 19 Blood Pressure 97/60 L Pulse Oximetry 99 99 Oxygen Delivery Mechanical Ventilation Fraction of Inspired Oxygen 55 01/26/25 08:00 01/26/25 08:00 01/26/25 08:00 Temperature 37.4 C Pulse Rate 65 65 65 Respiratory Rate 18 18 18 Blood Pressure 125/70 Pulse Oximetry 100 Oxygen Delivery Fraction of Inspired Oxygen 01/26/25 08:00 01/26/25 08:00 01/26/25 08:00 Temperature Pulse Rate 62 Respiratory Rate Blood Pressure 125/70 Pulse Oximetry Oxygen Delivery Mechanical Ventilation Fraction of Inspired Oxygen 55 55 01/26/25 08:00 01/26/25 08:33 01/26/25 08:34 Temperature Pulse Rate 64 62 62 Respiratory Rate 18 18 Blood Pressure Pulse Oximetry Oxygen Delivery Fraction of Inspired Oxygen 01/26/25 09:00 01/26/25 09:25 01/26/25 10:00 Temperature 37.4 C 37.4 C Pulse Rate 58 L 59 L 66 Respiratory Rate 18 18 18 Blood Pressure 101/57 L 117/68 Pulse Oximetry 99 100 Oxygen Delivery Fraction of Inspired Oxygen 01/26/25 10:00 01/26/25 10:00 01/26/25 10:00 Temperature Pulse Rate 66 66 66 Respiratory Rate 18 18 Blood Pressure 117/68 Pulse Oximetry Oxygen Delivery Fraction of Inspired Oxygen 01/26/25 10:00 01/26/25 10:42 01/26/25 10:42 Temperature Pulse Rate 66 61 61 Respiratory Rate 18 18 Blood Pressure Pulse Oximetry Oxygen Delivery Fraction of Inspired Oxygen Intake/Output Intake/Output: Intake & Output 01/23/25 01/24/25 01/25/25 01/26/25 23:59 23:59 23:59 23:59 Intake Total 33.3 4480.4 2237.0 1544.5 Output Total 600 1635 757 275 Balance -566.7 2845.4 1480.0 1269.5 Meds/Results Medications: Active Medications Generic Name Dose Route Start Last Admin Trade Name Freq PRN Reason Stop Dose Admin Albuterol/Ipratropium 3 ml 01/24/25 02:00 01/26/25 07:20 Ipratropium 0.5 Mg/Albuterol Sulfate 2.5 Mg (Base) Ampul.Neb 3 Ml INHALATION 3 ml Q6HRT JOCELYNE Administration Aspirin 81 mg 01/24/25 12:00 01/26/25 08:01 Aspirin 81 Mg Enteric Tablet PO 81 mg QAM JOCELYNE Administration Atorvastatin Calcium 80 mg 01/24/25 21:00 01/25/25 20:19 Atorvastatin 40 Mg Tablet PO 80 mg QHS JOCELYNE Administration Carvedilol 3.125 mg 01/24/25 21:00 Carvedilol 3.125 Mg Tablet PO On Hold: 01/24/25 21:00 Q12HR [facility] Empagliflozin 10 mg 01/27/25 09:00 Empagliflozin 10 Mg Tablet PO DAILY [facility] Heparin Sodium (Porcine) 4,000 units 01/23/25 17:10 01/26/25 05:41 Heparin Sodium 5,000 Units/Ml Vial IV PUSH 4,000 units PRN PRN Administration aPTT less than 55 seconds Heparin Sodium (Porcine) 4,000 units 01/23/25 17:10 Heparin Sodium 5,000 Units/Ml Vial IV PUSH PRN PRN aPTT 55 - 70 seconds Hydralazine HCl 10 mg 01/24/25 11:31 01/24/25 14:05 Hydralazine Hcl 20 Mg/Ml Vial IV PUSH 10 mg Q4H PRN Administration Blood Pressure - High Heparin Sodium/Dextrose 25,000 units in 250 mls @ 11 mls/hr 01/23/25 17:10 01/26/25 10:46 Heparin Sodium/D5w 100 Units/Ml IV CONT 0 units/hr .[id number] JOCELYNE 0 mls/hr Protocol Titration 1,100 UNITS/HR Fentanyl Citrate 2,500 mcg in 250 mls @ 5 mls/hr 01/23/25 21:15 01/26/25 10:00 Fentanyl 2,500 Mcg/Ns 250 Ml IV CONT 50 mcg/hr .Q50H JOCELYNE 5 mls/hr Protocol Titration 50 MCG/HR Piperacillin Sod/Tazobactam 50 mls @ 100 mls/hr 01/23/25 22:00 01/26/25 09:50 Sod 3.375 gm/ Sodium Chloride IVPB Infused Q6H JOCELYNE Infusion Lactated Ringer's 1,000 mls @ 75 mls/hr 01/24/25 10:00 01/26/25 02:10 Lr - Lactated Ringers Iv IV CONT 75 mls/hr .[id number] JOCELYNE Administration Midazolam HCl 100 mg in 100 mls @ 2 mls/hr 01/24/25 12:20 01/26/25 10:42 Versed 100 Mg/Ns 100 Ml IV CONT 2 mg/hr .Q50H JOCELYNE 2 mls/hr Protocol Administration 2 MG/HR Lidocaine HCl/Dextrose 2 gm in 500 mls @ 15 mls/hr 01/24/25 13:30 01/26/25 10:00 Lidocaine In D5w 4 Mg/Ml IV CONT 1 mg/min .Q24H JOCELYNE 15 mls/hr 1 MG/MIN Infusion Multi-Ingred Cream/Lotion/Oil/Oint 1 applic 01/24/25 09:00 01/26/25 08:01 Mineral Oil/White Petrolatum Ointment EACH EYE 1 applic Q12HR JOCELYNE Administration Pantoprazole Sodium 40 mg 01/24/25 09:00 01/26/25 08:01 Pantoprazole Sodium Iv 40 Mg Vial IV PUSH 40 mg DAILY JOCELYNE Administration Sodium Chloride 10 ml 01/24/25 06:00 01/26/25 04:58 Central Line Flush IV PUSH 10 ml Q8HR JOCELYNE Administration Sodium Chloride 20 ml 01/23/25 22:48 Central Line Flush IV PUSH PRN PRN after blood draws Radiology Results: ITS Impressions Head CT 01/23/25 19:11 IMPRESSION: No acute intracranial hemorrhage or extra axial fluid collections. Bilateral mastoiditis. All CT scans at this facility are performed using low dose modulation techniques as appropriate to perform exam including the following: automated exposure control; use of iterative reconstruction technique; adjustment of the mA and/or kV according to patient size (this includes techniques or standardized protocols for targeted exams where dose is matched to indication/reason for exam). Chest/Abdomen/Pelvis CT 01/23/25 19:16 IMPRESSION: Bilateral lower lobe consolidation may represent pneumonia. No acute abdominal or pelvic findings. All CT scans at this facility are performed using low dose modulation techniques as appropriate to perform exam including the following: automated exposure control; use of iterative reconstruction technique; adjustment of the mA and/or kV according to patient size (this includes techniques or standardized protocols for targeted exams where dose is matched to indication/reason for exam). Venous Doppler Study 01/24/25 11:45 IMPRESSION: 1. No DVT either leg. Ankle Brachial Index 01/24/25 11:52 IMPRESSION: 1. Artery pressures and the pressures at the right and left brachial, posterior tibial and dorsalis pedis arteries were unable to be obtained likely due to markedly increased pressures with right and left great toe pressures of 212 and 214 mmHg respectively. Chest X-Ray 01/26/25 08:17 Impression: 1: NG tube in the stomach. 2: Diffuse bilateral airspace disease, most likely edema. There is linear infiltrates of the left perihilar and right basilar locations which may represent superimposed pneumonia and/or atelectasis. Labs 01/26/25 05:00 01/26/25 05:00 Labs: Laboratory Results - last 24 hr 01/25/25 01/25/25 01/25/25 11:05 11:11 11:49 WBC 11.3 H RBC 4.82 Hgb 16.1 Hct 47.0 MCV 97.5 MCH 33.4 MCHC 34.3 RDW 13.2 Plt Count 205 MPV 9.9 Immature Gran % (Auto) Neut % (Auto) Lymph % (Auto) [place] % (Auto) Eos % (Auto) Baso % (Auto) Lymph # (Auto) [place] # (Auto) Eos # (Auto) Baso # (Auto) Abs Immat Gran (auto) Absolute Neuts (auto) Absolute Nucleated RBC Nucleated RBC % PT 15.8 H INR 1.3 APTT 91.0 H Puncture Site ABG pH ABG pCO2 ABG pO2 ABG PO2/FiO2 Ratio ABG HCO3 ABG O2 Saturation ABG O2 Content ABG Base Excess A-a Gradient Oxyhemoglobin Total Hemoglobin O2 Delivery Device O2 Liters/Min Minute Volume Vent Rate Vent Mode FiO2 Tidal Volume PEEP Peak Inspir Pressure Pressure Support Sodium 134 L Potassium 3.4 Chloride 104 Carbon Dioxide 26 Anion Gap 4 BUN 12 Creatinine 0.97 Estim Creat Clear Calc 82 Estimated GFR > 60 Glucose 140 H POC Capillary Glucose 120 H 128 H Lactic Acid 2.0 Calcium 8.1 L Phosphorus 3.5 Magnesium Total Bilirubin AST ALT Alkaline Phosphatase Total Creatine Kinase 188 H Total Protein Albumin Triglycerides Vancomycin Trough 8.7 L 01/25/25 01/25/25 01/25/25 13:03 14:29 15:22 WBC RBC Hgb Hct MCV MCH MCHC RDW Plt Count MPV Immature Gran % (Auto) Neut % (Auto) Lymph % (Auto) [place] % (Auto) Eos % (Auto) Baso % (Auto) Lymph # (Auto) [place] # (Auto) Eos # (Auto) Baso # (Auto) Abs Immat Gran (auto) Absolute Neuts (auto) Absolute Nucleated RBC Nucleated RBC % PT INR APTT Puncture Site ABG pH ABG pCO2 ABG pO2 ABG PO2/FiO2 Ratio ABG HCO3 ABG O2 Saturation ABG O2 Content ABG Base Excess A-a Gradient Oxyhemoglobin Total Hemoglobin O2 Delivery Device O2 Liters/Min Minute Volume Vent Rate Vent Mode FiO2 Tidal Volume PEEP Peak Inspir Pressure Pressure Support Sodium Potassium Chloride Carbon Dioxide Anion Gap BUN Creatinine Estim Creat Clear Calc Estimated GFR Glucose POC Capillary Glucose 142 H 125 H 144 H Lactic Acid Calcium Phosphorus Magnesium Total Bilirubin AST ALT Alkaline Phosphatase Total Creatine Kinase Total Protein Albumin Triglycerides Vancomycin Trough 01/25/25 01/25/25 01/25/25 15:58 16:53 17:30 WBC RBC Hgb Hct MCV MCH MCHC RDW Plt Count MPV Immature Gran % (Auto) Neut % (Auto) Lymph % (Auto) [place] % (Auto) Eos % (Auto) Baso % (Auto) Lymph # (Auto) [place] # (Auto) Eos # (Auto) Baso # (Auto) Abs Immat Gran (auto) Absolute Neuts (auto) Absolute Nucleated RBC Nucleated RBC % PT INR APTT Puncture Site Left radial ABG pH 7.418 ABG pCO2 35.7 ABG pO2 74.0 L ABG PO2/FiO2 Ratio 1.23 ABG HCO3 22.5 ABG O2 Saturation 95.2 ABG O2 Content 21.9 ABG Base Excess -1.3 A-a Gradient 314.5 Oxyhemoglobin 93.0 Total Hemoglobin 16.8 O2 Delivery Device Ventilator O2 Liters/Min Not Reportable Minute Volume Not Reportable Vent Rate 18 Vent Mode Cmv FiO2 60 Tidal Volume 420 PEEP 8 Peak Inspir Pressure Not Reportable Pressure Support Not Reportable Sodium Potassium Chloride Carbon Dioxide Anion Gap BUN Creatinine Estim Creat Clear Calc Estimated GFR Glucose POC Capillary Glucose 135 H 130 H Lactic Acid Calcium Phosphorus Magnesium Total Bilirubin AST ALT Alkaline Phosphatase Total Creatine Kinase Total Protein Albumin Triglycerides Vancomycin Trough 01/25/25 01/25/25 01/25/25 17:47 18:10 20:19 WBC RBC Hgb Hct MCV MCH MCHC RDW Plt Count MPV Immature Gran % (Auto) Neut % (Auto) Lymph % (Auto) [place] % (Auto) Eos % (Auto) Baso % (Auto) Lymph # (Auto) [place] # (Auto) Eos # (Auto) Baso # (Auto) Abs Immat Gran (auto) Absolute Neuts (auto) Absolute Nucleated RBC Nucleated RBC % PT INR APTT 75.7 H Puncture Site ABG pH ABG pCO2 ABG pO2 ABG PO2/FiO2 Ratio ABG HCO3 ABG O2 Saturation ABG O2 Content ABG Base Excess A-a Gradient Oxyhemoglobin Total Hemoglobin O2 Delivery Device O2 Liters/Min Minute Volume Vent Rate Vent Mode FiO2 Tidal Volume PEEP Peak Inspir Pressure Pressure Support Sodium Potassium Chloride Carbon Dioxide Anion Gap BUN Creatinine Estim Creat Clear Calc Estimated GFR Glucose POC Capillary Glucose 140 H Lactic Acid 2.6 H 3.5 H Calcium Phosphorus Magnesium Total Bilirubin AST ALT Alkaline Phosphatase Total Creatine Kinase 154 Total Protein Albumin Triglycerides 160 H Vancomycin Trough 01/25/25 01/25/25 01/26/25 23:22 23:24 05:00 WBC 12.4 H RBC 4.53 L Hgb 15.0 Hct 44.9 MCV 99.1 MCH 33.1 MCHC 33.4 RDW 13.7 Plt Count 273 MPV 10.3 Immature Gran % (Auto) 0.5 Neut % (Auto) 69.5 Lymph % (Auto) 20.9 [place] % (Auto) 8.8 H Eos % (Auto) 0.1 Baso % (Auto) 0.2 Lymph # (Auto) 2.60 [place] # (Auto) 1.1 H Eos # (Auto) 0.0 Baso # (Auto) 0.0 Abs Immat Gran (auto) 0.06 H Absolute Neuts (auto) 8.6 H Absolute Nucleated RBC 0.000 Nucleated RBC % 0.0 PT INR APTT 52.9 H Puncture Site ABG pH ABG pCO2 ABG pO2 ABG PO2/FiO2 Ratio ABG HCO3 ABG O2 Saturation ABG O2 Content ABG Base Excess A-a Gradient Oxyhemoglobin Total Hemoglobin O2 Delivery Device O2 Liters/Min Minute Volume Vent Rate Vent Mode FiO2 Tidal Volume PEEP Peak Inspir Pressure Pressure Support Sodium 133 L 134 L Potassium 4.1 4.1 Chloride 104 104 Carbon Dioxide 25 26 Anion Gap 4 4 BUN 14 15 Creatinine 1.30 1.42 H Estim Creat Clear Calc 62 57 Estimated GFR 53 L 48 L Glucose 141 H 128 H POC Capillary Glucose 126 H Lactic Acid 2.6 H 2.3 H Calcium 8.2 L 8.3 L Phosphorus 3.5 Magnesium 1.8 Total Bilirubin 0.7 AST 65 H ALT 44 Alkaline Phosphatase 60 Total Creatine Kinase 155 161 Total Protein 6.2 L Albumin 3.3 L Triglycerides Vancomycin Trough 01/26/25 01/26/25 05:03 05:54 WBC RBC Hgb Hct MCV MCH MCHC RDW Plt Count MPV Immature Gran % (Auto) Neut % (Auto) Lymph % (Auto) [place] % (Auto) Eos % (Auto) Baso % (Auto) Lymph # (Auto) [place] # (Auto) Eos # (Auto) Baso # (Auto) Abs Immat Gran (auto) Absolute Neuts (auto) Absolute Nucleated RBC Nucleated RBC % PT INR APTT Puncture Site Left radial ABG pH 7.400 ABG pCO2 37.6 ABG pO2 84.5 ABG PO2/FiO2 Ratio 1.54 ABG HCO3 22.8 ABG O2 Saturation 96.4 ABG O2 Content 20.4 ABG Base Excess -1.6 A-a Gradient 265.8 Oxyhemoglobin 95.2 Total Hemoglobin 15.2 O2 Delivery Device Ventilator O2 Liters/Min Not Reportable Minute Volume Not Reportable Vent Rate 18 Vent Mode Cmv FiO2 55 Tidal Volume 420 PEEP 8 Peak Inspir Pressure Not Reportable Pressure Support Not Reportable Sodium Potassium Chloride Carbon Dioxide Anion Gap BUN Creatinine Estim Creat Clear Calc Estimated GFR Glucose POC Capillary Glucose 143 H Lactic Acid Calcium Phosphorus Magnesium Total Bilirubin AST ALT Alkaline Phosphatase Total Creatine Kinase Total Protein Albumin Triglycerides Vancomycin Trough ASA Classification/Sedation ASA Classification/Sedation Risks: Risks, benefits and alternatives explained and patient/family accepted plan for sedation. Patient re-evaluated immediately prior to sedation.
--- NOTE | 2025-01-26 10:59 | PC.NURSE ---
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 Pt's son, Fabiano, at bedside. Drs. Goodson and Courtney discussed procedure and answered questions for family members. Written consent obtained from Fabiano.
--- NOTE | 2025-01-26 11:23 | PCNFU ---
Nutrition Follow-Up Complete: Suboptimal Energy Intake as related to mechanical ventilation as evidenced by NPO.. Goal: Meet estimated nutritional needs. Patient will continue current goal. Pt current nutrition is NPO. Nutrition recommendation: Vital AF 1.2 goal rate at 65 ml/hr. Last recorded weight is 139.5 kg, up from 138.8 kg on admit Bowel Motility: No BM reported. . Labs Reviewed: Glu 119, Na 135, Alb 3.3, K 3.0 Meds Noted:Fentanyl, Versed Heparin. Skin: WNL Additional Notes: Patient remains on a mechanical vent. Cardiology following for cardiac cath. Tube feeding recommendations Vital AF 1.2 at 20 ml/hr advance by 10 ml q 4 hours to goal rate of 65 ml/hr. Flush 30 ml q 4 hours. Total Nutrition: 1716 kcal/107 gm protein/1160 ml water. Meeting 91% kcal needs at 22 kcal/kg and 100% protein needs at 1.2-1.4 gm/kg. Will monitor weight, labs, skin, diet orders, meds every Thursday and Thursday.
--- NOTE | 2025-01-26 11:44 | WPDINTPN2 ---
Assessment and Plan Assessment and Plan (1) Acute respiratory failure: Code(s): J96.00 - Acute respiratory failure, unspecified whether with hypoxia or hypercapnia Status: Acute Assessment and Plan: Acute respiratory failure likely related to cardiac arrest. Also pulmonary edema, pneumonia as seen on CT chest -intubated on 01/23/2025 -currently on CMV mode of ventilation, peep of 5, 40% FiO2 -chest x-ray and ABGs reviewed -continue bronchodilator -sedated with fentanyl, propofol -patient off Nimbex infusion -once he gets back from the cardiac photo lab manager, will discontinue sedation and allow him to wake up to evaluate neurological status (2) Cardiac arrest with ventricular fibrillation: Code(s): I46.9 - Cardiac arrest, cause unspecified; I49.01 - Ventricular fibrillation Status: Acute Assessment and Plan: 01/23: Patient presented the ED with dizziness and nausea. While he was in the ER waiting room, went unresponsive, was in VFib arrest -status post VFib cardiac arrest, requiring defibrillation x1, epinephrine x1 and CPR before ROSC. -patient on target temperature management -cardiology following the patient, started patient on Coreg -patient also on amiodarone infusion -will require ischemic workup once he is off target temperature management -will obtain echo once he is rewarmed -elevated troponins, continue heparin infusion -started on aspirin 81 mg -on lidocaine infusion for arrhythmias, 01/26: Coronary angiogramtoday per Cardiology (3) Mixed hyperlipidemia: Code(s): E78.2 - Mixed hyperlipidemia Status: Acute Assessment and Plan: Contain atorvastatin (4) Chronic atrial fibrillation: Code(s): I48.20 - Chronic atrial fibrillation, unspecified Status: Acute Assessment and Plan: Currently in ventricular bigeminy, will hold amiodarone infusion -hold Coreg -continue heparin infusion Plan DVT prophylaxis: Heparin infusion Stress ulcer prophylaxis: Protonix Nutrition: Will start patient on tube feeds once he arrives from cardiac photo lab manager Code Status: Full code Critical Care Time Spent: 34 minutes Discussed with cardiology Discussed with sonBenedicto and updated him with patient's condition and plan of care. He is aware that patient will be going for a coronary angiogram today. And once he comes back from there we will start weaning his sedation, an alarm to wake up. I answered all his questions Due to a high probability of clinically significant, life threatening deterioration, the patient required my highest level of preparedness to intervene emergently and I personally spent this critical care time directly and personally managing the patient. This critical care time included obtaining a history; examining the patient; pulse oximetry; ordering and review of studies; arranging urgent treatment with development of a management plan; evaluation of patient's response to treatment; frequent reassessment; and discussions with other providers. It was exclusive of separately billable procedures and treating other patients and teaching time. Please see Assessment and Plan section and the rest of the note for further information on patient assessment and treatment This dictation may have been done utilizing a voice recognition system. Attempts have been made to correct errors. However, there may be uncorrected grammatical, spelling, and recognitions errors present. Subjective Date/time seen: 01/26/25 11:44 Interval history: Reason for consult: Cardiac arrest, ventricular fibrillation, respiratory failure post cardiac arrest, presented with dizziness along with nausea to the ER on 01/23/2025 01/26/2025: Patient seen and examined the ICU, remains intubated on CMV mode of ventilation, peep of 8, 55% FiO2. Sedated with fentanyl and Versed infusion, off Nimbex. Patient has been rewarmed to normal body temperature. Urine output has been low, creatinine slightly increased, remains on lidocaine and heparin infusion. No episodes of arrhythmias, hemodynamically stable, not on any pressors Review of Systems Review of Systems: ROS unobtainable: Yes unobtainable due to endotracheal tube, unobtainable due to medical condition and unobtainable due to mental status Exam Narrative: General: Intubated, sedated, not in acute distress HEENT:? Pupils equal and reactive, sclera is clear, ETT in place Neck:? Supple Respiratory:? Coarse breath sounds bilaterally, decreased at bases, no wheeze Cardiac:? Irregularly irregular rhythm, bradycardic Abdomen:? Soft, nontender, nondistended, hypoactive bowel sound Extremities:? Trace edema bilaterally, palpable pulses. Ruptured blisters noted on the right hand, edematous currently in a splint and Heber wrap Neuro:? Patient is intubated, sedated, does wince to pain, does not withdraw, does not open his eyes or follows commands Skin:? No lesions noted Psych:? Unable to assess at this time Objective Data Vital Signs Vital Signs: Vital Signs - 24 hr 01/25/25 12:00 01/25/25 12:00 01/25/25 12:00 Temperature 90.7 F L Pulse Rate 49 L 49 L 49 L Respiratory Rate 18 18 Blood Pressure 118/93 H 118/93 H 118/93 H Pulse Oximetry 100 Oxygen Delivery Fraction of Inspired Oxygen 01/25/25 12:00 01/25/25 12:00 01/25/25 12:00 Temperature Pulse Rate 49 L 49 L Respiratory Rate 18 18 Blood Pressure Pulse Oximetry Oxygen Delivery Fraction of Inspired Oxygen 60 01/25/25 12:00 01/25/25 12:00 01/25/25 12:38 Temperature 90.7 F L Pulse Rate 49 L 49 L Respiratory Rate 18 Blood Pressure 118/84 Pulse Oximetry 100 Oxygen Delivery Mechanical Ventilation Fraction of Inspired Oxygen 60 01/25/25 13:00 01/25/25 13:00 01/25/25 13:45 Temperature 90.8 F L 90.8 F L Pulse Rate 48 L 48 L 51 L Respiratory Rate 18 18 Blood Pressure 99/71 L 99/71 L Pulse Oximetry 100 100 100 Oxygen Delivery Mechanical Ventilation Fraction of Inspired Oxygen 60 01/25/25 13:45 01/25/25 13:55 01/25/25 14:00 Temperature 91.6 F L Pulse Rate 51 L 52 L 54 L Respiratory Rate 18 18 18 Blood Pressure 90/71 L Pulse Oximetry 100 Oxygen Delivery Fraction of Inspired Oxygen 01/25/25 14:00 01/25/25 14:00 01/25/25 14:00 Temperature Pulse Rate 54 L 54 L 54 L Respiratory Rate 18 18 Blood Pressure 90/71 L 90/71 L Pulse Oximetry Oxygen Delivery Fraction of Inspired Oxygen 01/25/25 14:00 01/25/25 14:00 01/25/25 14:00 Temperature 92.1 F L Pulse Rate 54 L 54 L 55 L Respiratory Rate 18 18 Blood Pressure 98/63 L Pulse Oximetry 100 Oxygen Delivery Fraction of Inspired Oxygen 01/25/25 15:00 01/25/25 16:00 01/25/25 16:00 Temperature 93.5 F L 94.9 F L 95.1 F L Pulse Rate 60 75 75 Respiratory Rate 18 18 18 Blood Pressure 92/63 L 93/70 L 93/70 L Pulse Oximetry 100 100 100 Oxygen Delivery Fraction of Inspired Oxygen 01/25/25 16:00 01/25/25 16:00 01/25/25 16:00 Temperature Pulse Rate 62 62 62 Respiratory Rate 18 Blood Pressure 93/70 L 93/70 L Pulse Oximetry Oxygen Delivery Fraction of Inspired Oxygen 01/25/25 16:00 01/25/25 16:00 01/25/25 16:00 Temperature Pulse Rate 62 62 Respiratory Rate 18 18 Blood Pressure Pulse Oximetry Oxygen Delivery Fraction of Inspired Oxygen 60 01/25/25 16:00 01/25/25 16:44 01/25/25 17:00 Temperature 96.7 F L Pulse Rate 74 83 Respiratory Rate 18 23 H Blood Pressure 139/83 175/109 H Pulse Oximetry 96 Oxygen Delivery Mechanical Ventilation Fraction of Inspired Oxygen 60 01/25/25 17:03 01/25/25 17:32 01/25/25 17:34 Temperature Pulse Rate 52 L 83 81 Respiratory Rate 26 H 26 H Blood Pressure Pulse Oximetry 100 Oxygen Delivery Mechanical Ventilation Fraction of Inspired Oxygen 60 01/25/25 17:37 01/25/25 17:37 01/25/25 17:41 Temperature Pulse Rate 83 83 80 Respiratory Rate 27 H Blood Pressure 175/109 H 175/109 H Pulse Oximetry Oxygen Delivery Fraction of Inspired Oxygen 01/25/25 17:48 01/25/25 17:50 01/25/25 18:00 Temperature 97.1 F L Pulse Rate 78 86 75 Respiratory Rate 29 H 26 H 20 Blood Pressure 131/90 Pulse Oximetry 95 Oxygen Delivery Fraction of Inspired Oxygen 01/25/25 18:00 01/25/25 19:00 01/25/25 19:00 Temperature 97.6 F 97.6 F Pulse Rate 60 72 78 Respiratory Rate 17 20 Blood Pressure 141/91 H 141/91 H Pulse Oximetry 96 96 Oxygen Delivery Fraction of Inspired Oxygen 01/25/25 20:00 01/25/25 20:00 01/25/25 20:00 Temperature 98.0 F Pulse Rate 66 66 Respiratory Rate 18 18 Blood Pressure 97/69 L Pulse Oximetry 98 Oxygen Delivery Fraction of Inspired Oxygen 60 01/25/25 20:00 01/25/25 20:00 01/25/25 20:00 Temperature Pulse Rate 66 66 66 Respiratory Rate 18 Blood Pressure 97/69 L Pulse Oximetry Oxygen Delivery Fraction of Inspired Oxygen 01/25/25 20:00 01/25/25 20:03 01/25/25 20:12 Temperature Pulse Rate 66 68 Respiratory Rate 18 18 Blood Pressure Pulse Oximetry 98 Oxygen Delivery Mechanical Ventilation Fraction of Inspired Oxygen 60 01/25/25 20:46 01/25/25 21:00 01/25/25 22:00 Temperature 98.6 F 99.0 F Pulse Rate 66 71 66 Respiratory Rate 18 18 Blood Pressure 104/69 94/61 L Pulse Oximetry 99 98 97 Oxygen Delivery Mechanical Ventilation Fraction of Inspired Oxygen 60 01/25/25 22:00 01/25/25 22:00 01/25/25 22:00 Temperature Pulse Rate 66 66 66 Respiratory Rate 18 Blood Pressure 94/61 L Pulse Oximetry Oxygen Delivery Fraction of Inspired Oxygen 01/25/25 22:00 01/25/25 23:00 01/25/25 23:00 Temperature 99.3 F Pulse Rate 66 67 68 Respiratory Rate 18 18 Blood Pressure 99/65 L Pulse Oximetry 98 98 Oxygen Delivery Mechanical Ventilation Fraction of Inspired Oxygen 60 01/26/25 00:00 01/26/25 00:00 01/26/25 00:00 Temperature 99.5 F Pulse Rate 62 Respiratory Rate 18 Blood Pressure 80/60 L Pulse Oximetry 99 99 Oxygen Delivery Mechanical Ventilation Fraction of Inspired Oxygen 60 60 01/26/25 00:00 01/26/25 00:00 01/26/25 00:00 Temperature Pulse Rate 62 62 62 Respiratory Rate 18 18 Blood Pressure 80/60 L Pulse Oximetry Oxygen Delivery Fraction of Inspired Oxygen 01/26/25 00:00 01/26/25 01:00 01/26/25 01:25 Temperature 99.6 F Pulse Rate 62 64 61 Respiratory Rate 18 18 Blood Pressure 95/61 L Pulse Oximetry 99 Oxygen Delivery Fraction of Inspired Oxygen 01/26/25 01:27 01/26/25 02:00 01/26/25 02:00 Temperature 99.6 F Pulse Rate 61 60 60 Respiratory Rate 18 Blood Pressure 89/61 L Pulse Oximetry 98 98 Oxygen Delivery Mechanical Ventilation Fraction of Inspired Oxygen 55 01/26/25 02:00 01/26/25 02:00 01/26/25 02:00 Temperature Pulse Rate 60 60 60 Respiratory Rate 18 18 Blood Pressure 89/61 L Pulse Oximetry Oxygen Delivery Fraction of Inspired Oxygen 01/26/25 03:00 01/26/25 04:00 01/26/25 04:00 Temperature 98.2 F Pulse Rate 58 L Respiratory Rate 18 Blood Pressure 95/61 L Pulse Oximetry 99 98 Oxygen Delivery Mechanical Ventilation Fraction of Inspired Oxygen 55 60 01/26/25 04:00 01/26/25 04:00 01/26/25 04:00 Temperature 99.5 F Pulse Rate 57 L 57 L 56 L Respiratory Rate 18 18 Blood Pressure 82/66 L Pulse Oximetry 99 Oxygen Delivery Fraction of Inspired Oxygen 01/26/25 04:00 01/26/25 04:00 01/26/25 05:00 Temperature 99.7 F H Pulse Rate 57 L 57 L 71 Respiratory Rate 18 18 Blood Pressure 82/66 L 120/75 Pulse Oximetry 97 Oxygen Delivery Fraction of Inspired Oxygen 01/26/25 05:00 01/26/25 05:32 01/26/25 05:32 Temperature Pulse Rate 58 L 68 68 Respiratory Rate 18 18 Blood Pressure Pulse Oximetry 97 Oxygen Delivery Mechanical Ventilation Fraction of Inspired Oxygen 55 01/26/25 06:00 01/26/25 06:00 01/26/25 06:00 Temperature 99.5 F Pulse Rate 63 63 63 Respiratory Rate 18 Blood Pressure 105/61 105/61 Pulse Oximetry 97 Oxygen Delivery Fraction of Inspired Oxygen 01/26/25 06:00 01/26/25 06:00 01/26/25 07:00 Temperature 99.3 F Pulse Rate 63 63 58 L Respiratory Rate 18 18 18 Blood Pressure 97/60 L Pulse Oximetry 99 Oxygen Delivery Fraction of Inspired Oxygen 01/26/25 07:20 01/26/25 07:20 01/26/25 08:00 Temperature 99.3 F Pulse Rate 57 L 57 L 65 Respiratory Rate 19 18 Blood Pressure 125/70 Pulse Oximetry 99 100 Oxygen Delivery Mechanical Ventilation Fraction of Inspired Oxygen 55 01/26/25 08:00 01/26/25 08:00 01/26/25 08:00 Temperature Pulse Rate 65 65 62 Respiratory Rate 18 18 Blood Pressure 125/70 Pulse Oximetry Oxygen Delivery Fraction of Inspired Oxygen 01/26/25 08:00 01/26/25 08:00 01/26/25 08:00 Temperature Pulse Rate 64 Respiratory Rate Blood Pressure Pulse Oximetry Oxygen Delivery Mechanical Ventilation Fraction of Inspired Oxygen 55 55 01/26/25 08:33 01/26/25 08:34 01/26/25 09:00 Temperature 99.3 F Pulse Rate 62 62 58 L Respiratory Rate 18 18 18 Blood Pressure 101/57 L Pulse Oximetry 99 Oxygen Delivery Fraction of Inspired Oxygen 01/26/25 09:25 01/26/25 10:00 01/26/25 10:00 Temperature 99.4 F Pulse Rate 59 L 66 66 Respiratory Rate 18 18 Blood Pressure 117/68 117/68 Pulse Oximetry 100 Oxygen Delivery Fraction of Inspired Oxygen 01/26/25 10:00 01/26/25 10:00 01/26/25 10:00 Temperature Pulse Rate 66 66 66 Respiratory Rate 18 18 Blood Pressure Pulse Oximetry Oxygen Delivery Fraction of Inspired Oxygen 01/26/25 10:42 01/26/25 10:42 01/26/25 11:00 Temperature 99.4 F Pulse Rate 61 61 100 Respiratory Rate 18 18 18 Blood Pressure 110/64 Pulse Oximetry 100 Oxygen Delivery Fraction of Inspired Oxygen Intake/Output Intake/Output: Intake & Output 01/23/25 01/24/25 01/25/25 01/26/25 23:59 23:59 23:59 23:59 Intake Total 33.3 4480.4 2237.0 1544.5 Output Total 600 1635 757 275 Balance -566.7 2845.4 1480.0 1269.5 Meds/Results Medications: Active Medications Generic Name Dose Route Start Last Admin Trade Name Freq PRN Reason Stop Dose Admin Albuterol/Ipratropium 3 ml 01/24/25 02:00 01/26/25 07:20 Ipratropium 0.5 Mg/Albuterol Sulfate 2.5 Mg (Base) Ampul.Neb 3 Ml INHALATION 3 ml Q6HRT JOCELYNE Administration Aspirin 81 mg 01/24/25 12:00 01/26/25 08:01 Aspirin 81 Mg Enteric Tablet PO 81 mg QAM JOCELYNE Administration Atorvastatin Calcium 80 mg 01/24/25 21:00 01/25/25 20:19 Atorvastatin 40 Mg Tablet PO 80 mg QHS JOCELYNE Administration Carvedilol 3.125 mg 01/24/25 21:00 Carvedilol 3.125 Mg Tablet PO On Hold: 01/24/25 21:00 Q12HR [facility] Empagliflozin 10 mg 01/27/25 09:00 Empagliflozin 10 Mg Tablet PO DAILY [facility] Heparin Sodium (Porcine) 4,000 units 01/23/25 17:10 01/26/25 05:41 Heparin Sodium 5,000 Units/Ml Vial IV PUSH 4,000 units PRN PRN Administration aPTT less than 55 seconds Heparin Sodium (Porcine) 4,000 units 01/23/25 17:10 Heparin Sodium 5,000 Units/Ml Vial IV PUSH PRN PRN aPTT 55 - 70 seconds Hydralazine HCl 10 mg 01/24/25 11:31 01/24/25 14:05 Hydralazine Hcl 20 Mg/Ml Vial IV PUSH 10 mg Q4H PRN Administration Blood Pressure - High Heparin Sodium/Dextrose 25,000 units in 250 mls @ 11 mls/hr 01/23/25 17:10 01/26/25 10:46 Heparin Sodium/D5w 100 Units/Ml IV CONT Infused .[id number] JOCELYNE Titration Protocol 1,100 UNITS/HR Fentanyl Citrate 2,500 mcg in 250 mls @ 5 mls/hr 01/23/25 21:15 01/26/25 10:00 Fentanyl 2,500 Mcg/Ns 250 Ml IV CONT 50 mcg/hr .Q50H JOCELYNE 5 mls/hr Protocol Titration 50 MCG/HR Piperacillin Sod/Tazobactam 50 mls @ 100 mls/hr 01/23/25 22:00 01/26/25 09:50 Sod 3.375 gm/ Sodium Chloride IVPB Infused Q6H JOCELYNE Infusion Lactated Ringer's 1,000 mls @ 75 mls/hr 01/24/25 10:00 01/26/25 02:10 Lr - Lactated Ringers Iv IV CONT 75 mls/hr .[id number] JOCELYNE Administration Midazolam HCl 100 mg in 100 mls @ 2 mls/hr 01/24/25 12:20 01/26/25 10:42 Versed 100 Mg/Ns 100 Ml IV CONT 2 mg/hr .Q50H JOCELYNE 2 mls/hr Protocol Administration 2 MG/HR Lidocaine HCl/Dextrose 2 gm in 500 mls @ 15 mls/hr 01/24/25 13:30 01/26/25 10:00 Lidocaine In D5w 4 Mg/Ml IV CONT 1 mg/min .Q24H JOCELYNE 15 mls/hr 1 MG/MIN Infusion Multi-Ingred Cream/Lotion/Oil/Oint 1 applic 01/24/25 09:00 01/26/25 08:01 Mineral Oil/White Petrolatum Ointment EACH EYE 1 applic Q12HR JOCELYNE Administration Pantoprazole Sodium 40 mg 01/24/25 09:00 01/26/25 08:01 Pantoprazole Sodium Iv 40 Mg Vial IV PUSH 40 mg DAILY JOCELYNE Administration Sodium Chloride 10 ml 01/24/25 06:00 01/26/25 04:58 Central Line Flush IV PUSH 10 ml Q8HR JOCELYNE Administration Sodium Chloride 20 ml 01/23/25 22:48 Central Line Flush IV PUSH PRN PRN after blood draws Radiology Results: ITS Impressions Head CT 01/23/25 19:11 IMPRESSION: No acute intracranial hemorrhage or extra axial fluid collections. Bilateral mastoiditis. All CT scans at this facility are performed using low dose modulation techniques as appropriate to perform exam including the following: automated exposure control; use of iterative reconstruction technique; adjustment of the mA and/or kV according to patient size (this includes techniques or standardized protocols for targeted exams where dose is matched to indication/reason for exam). Chest/Abdomen/Pelvis CT 01/23/25 19:16 IMPRESSION: Bilateral lower lobe consolidation may represent pneumonia. No acute abdominal or pelvic findings. All CT scans at this facility are performed using low dose modulation techniques as appropriate to perform exam including the following: automated exposure control; use of iterative reconstruction technique; adjustment of the mA and/or kV according to patient size (this includes techniques or standardized protocols for targeted exams where dose is matched to indication/reason for exam). Venous Doppler Study 01/24/25 11:45 IMPRESSION: 1. No DVT either leg. Ankle Brachial Index 01/24/25 11:52 IMPRESSION: 1. Artery pressures and the pressures at the right and left brachial, posterior tibial and dorsalis pedis arteries were unable to be obtained likely due to markedly increased pressures with right and left great toe pressures of 212 and 214 mmHg respectively. Chest X-Ray 01/26/25 08:17 Impression: 1: NG tube in the stomach. 2: Diffuse bilateral airspace disease, most likely edema. There is linear infiltrates of the left perihilar and right basilar locations which may represent superimposed pneumonia and/or atelectasis. Labs Labs: Laboratory Results - last 24 hr 01/25/25 01/25/25 01/25/25 11:11 11:49 13:03 WBC RBC Hgb Hct MCV MCH MCHC RDW Plt Count MPV Immature Gran % (Auto) Neut % (Auto) Lymph % (Auto) [place] % (Auto) Eos % (Auto) Baso % (Auto) Lymph # (Auto) [place] # (Auto) Eos # (Auto) Baso # (Auto) Abs Immat Gran (auto) Absolute Neuts (auto) Absolute Nucleated RBC Nucleated RBC % APTT Puncture Site ABG pH ABG pCO2 ABG pO2 ABG PO2/FiO2 Ratio ABG HCO3 ABG O2 Saturation ABG O2 Content ABG Base Excess A-a Gradient Oxyhemoglobin Total Hemoglobin O2 Delivery Device O2 Liters/Min Minute Volume Vent Rate Vent Mode FiO2 Tidal Volume PEEP Peak Inspir Pressure Pressure Support Sodium Potassium Chloride Carbon Dioxide Anion Gap BUN Creatinine Estim Creat Clear Calc Estimated GFR Glucose POC Capillary Glucose 128 H 142 H Lactic Acid Calcium Phosphorus Magnesium Total Bilirubin AST ALT Alkaline Phosphatase Total Creatine Kinase Total Protein Albumin Triglycerides Vancomycin Trough 8.7 L 01/25/25 01/25/25 01/25/25 14:29 15:22 15:58 WBC RBC Hgb Hct MCV MCH MCHC RDW Plt Count MPV Immature Gran % (Auto) Neut % (Auto) Lymph % (Auto) [place] % (Auto) Eos % (Auto) Baso % (Auto) Lymph # (Auto) [place] # (Auto) Eos # (Auto) Baso # (Auto) Abs Immat Gran (auto) Absolute Neuts (auto) Absolute Nucleated RBC Nucleated RBC % APTT Puncture Site ABG pH ABG pCO2 ABG pO2 ABG PO2/FiO2 Ratio ABG HCO3 ABG O2 Saturation ABG O2 Content ABG Base Excess A-a Gradient Oxyhemoglobin Total Hemoglobin O2 Delivery Device O2 Liters/Min Minute Volume Vent Rate Vent Mode FiO2 Tidal Volume PEEP Peak Inspir Pressure Pressure Support Sodium Potassium Chloride Carbon Dioxide Anion Gap BUN Creatinine Estim Creat Clear Calc Estimated GFR Glucose POC Capillary Glucose 125 H 144 H 135 H Lactic Acid Calcium Phosphorus Magnesium Total Bilirubin AST ALT Alkaline Phosphatase Total Creatine Kinase Total Protein Albumin Triglycerides Vancomycin Trough 01/25/25 01/25/25 01/25/25 16:53 17:30 17:47 WBC RBC Hgb Hct MCV MCH MCHC RDW Plt Count MPV Immature Gran % (Auto) Neut % (Auto) Lymph % (Auto) [place] % (Auto) Eos % (Auto) Baso % (Auto) Lymph # (Auto) [place] # (Auto) Eos # (Auto) Baso # (Auto) Abs Immat Gran (auto) Absolute Neuts (auto) Absolute Nucleated RBC Nucleated RBC % APTT 75.7 H Puncture Site Left radial ABG pH 7.418 ABG pCO2 35.7 ABG pO2 74.0 L ABG PO2/FiO2 Ratio 1.23 ABG HCO3 22.5 ABG O2 Saturation 95.2 ABG O2 Content 21.9 ABG Base Excess -1.3 A-a Gradient 314.5 Oxyhemoglobin 93.0 Total Hemoglobin 16.8 O2 Delivery Device Ventilator O2 Liters/Min Not Reportable Minute Volume Not Reportable Vent Rate 18 Vent Mode Cmv FiO2 60 Tidal Volume 420 PEEP 8 Peak Inspir Pressure Not Reportable Pressure Support Not Reportable Sodium Potassium Chloride Carbon Dioxide Anion Gap BUN Creatinine Estim Creat Clear Calc Estimated GFR Glucose POC Capillary Glucose 130 H Lactic Acid 2.6 H Calcium Phosphorus Magnesium Total Bilirubin AST ALT Alkaline Phosphatase Total Creatine Kinase 154 Total Protein Albumin Triglycerides 160 H Vancomycin Trough 01/25/25 01/25/25 01/25/25 18:10 20:19 23:22 WBC RBC Hgb Hct MCV MCH MCHC RDW Plt Count MPV Immature Gran % (Auto) Neut % (Auto) Lymph % (Auto) [place] % (Auto) Eos % (Auto) Baso % (Auto) Lymph # (Auto) [place] # (Auto) Eos # (Auto) Baso # (Auto) Abs Immat Gran (auto) Absolute Neuts (auto) Absolute Nucleated RBC Nucleated RBC % APTT Puncture Site ABG pH ABG pCO2 ABG pO2 ABG PO2/FiO2 Ratio ABG HCO3 ABG O2 Saturation ABG O2 Content ABG Base Excess A-a Gradient Oxyhemoglobin Total Hemoglobin O2 Delivery Device O2 Liters/Min Minute Volume Vent Rate Vent Mode FiO2 Tidal Volume PEEP Peak Inspir Pressure Pressure Support Sodium Potassium Chloride Carbon Dioxide Anion Gap BUN Creatinine Estim Creat Clear Calc Estimated GFR Glucose POC Capillary Glucose 140 H 126 H Lactic Acid 3.5 H Calcium Phosphorus Magnesium Total Bilirubin AST ALT Alkaline Phosphatase Total Creatine Kinase Total Protein Albumin Triglycerides Vancomycin Trough 01/25/25 01/26/25 01/26/25 23:24 05:00 05:03 WBC 12.4 H RBC 4.53 L Hgb 15.0 Hct 44.9 MCV 99.1 MCH 33.1 MCHC 33.4 RDW 13.7 Plt Count 273 MPV 10.3 Immature Gran % (Auto) 0.5 Neut % (Auto) 69.5 Lymph % (Auto) 20.9 [place] % (Auto) 8.8 H Eos % (Auto) 0.1 Baso % (Auto) 0.2 Lymph # (Auto) 2.60 [place] # (Auto) 1.1 H Eos # (Auto) 0.0 Baso # (Auto) 0.0 Abs Immat Gran (auto) 0.06 H Absolute Neuts (auto) 8.6 H Absolute Nucleated RBC 0.000 Nucleated RBC % 0.0 APTT 52.9 H Puncture Site Left radial ABG pH 7.400 ABG pCO2 37.6 ABG pO2 84.5 ABG PO2/FiO2 Ratio 1.54 ABG HCO3 22.8 ABG O2 Saturation 96.4 ABG O2 Content 20.4 ABG Base Excess -1.6 A-a Gradient 265.8 Oxyhemoglobin 95.2 Total Hemoglobin 15.2 O2 Delivery Device Ventilator O2 Liters/Min Not Reportable Minute Volume Not Reportable Vent Rate 18 Vent Mode Cmv FiO2 55 Tidal Volume 420 PEEP 8 Peak Inspir Pressure Not Reportable Pressure Support Not Reportable Sodium 133 L 134 L Potassium 4.1 4.1 Chloride 104 104 Carbon Dioxide 25 26 Anion Gap 4 4 BUN 14 15 Creatinine 1.30 1.42 H Estim Creat Clear Calc 62 57 Estimated GFR 53 L 48 L Glucose 141 H 128 H POC Capillary Glucose Lactic Acid 2.6 H 2.3 H Calcium 8.2 L 8.3 L Phosphorus 3.5 Magnesium 1.8 Total Bilirubin 0.7 AST 65 H ALT 44 Alkaline Phosphatase 60 Total Creatine Kinase 155 161 Total Protein 6.2 L Albumin 3.3 L Triglycerides Vancomycin Trough 01/26/25 05:54 WBC RBC Hgb Hct MCV MCH MCHC RDW Plt Count MPV Immature Gran % (Auto) Neut % (Auto) Lymph % (Auto) [place] % (Auto) Eos % (Auto) Baso % (Auto) Lymph # (Auto) [place] # (Auto) Eos # (Auto) Baso # (Auto) Abs Immat Gran (auto) Absolute Neuts (auto) Absolute Nucleated RBC Nucleated RBC % APTT Puncture Site ABG pH ABG pCO2 ABG pO2 ABG PO2/FiO2 Ratio ABG HCO3 ABG O2 Saturation ABG O2 Content ABG Base Excess A-a Gradient Oxyhemoglobin Total Hemoglobin O2 Delivery Device O2 Liters/Min Minute Volume Vent Rate Vent Mode FiO2 Tidal Volume PEEP Peak Inspir Pressure Pressure Support Sodium Potassium Chloride Carbon Dioxide Anion Gap BUN Creatinine Estim Creat Clear Calc Estimated GFR Glucose POC Capillary Glucose 143 H Lactic Acid Calcium Phosphorus Magnesium Total Bilirubin AST ALT Alkaline Phosphatase Total Creatine Kinase Total Protein Albumin Triglycerides Vancomycin Trough Quality VTE Prophylaxis VTE prophylaxis: pharmacologic ordered
--- NOTE | 2025-01-26 12:36 | WPDCARDPROC ---
Cardiac Cath Procedure Note Date of procedure:: 01/26/25 Performing physician:: Octavia Valdez MD Indication:: CATHETERIZATION LABORATORY REPORT Procedure Date: 01/26/2025 Anesthesia: Patient intubated and already sedated with Versed and fentanyl drips. Pre-op Diagnosis: NSTEMI Acute hypoxic respiratory failure requiring intubation and sedation Post-op Diagnosis: Triple-vessel obstructive CAD with 90% stenosis in the proximal LAD, 80% stenosis in small OM1 and 80% stenosis in large OM2, EX[employer]LECTIONS MANAGER of mid RCA with [id number] collaterals filling distal vessel. Aortic stenosis Acute hypoxic respiratory failure of-intubated and sedated Procedure(s): IBS guided left common femoral artery access Left heart catheterization with coronary angiography Access Site: Left common femoral artery Brief History and Clinical Indications: All risks, benefits and alternatives to left heart catheterization with or without percutaneous coronary intervention was discussed at length with the patient. Risk of complications including but not limited to bleeding, infection, arrhythmia, stroke, worsening kidney function, blood loss, groin hematoma, limb loss, emergency coronary artery bypass grafting, and even were discussed with the patient and all questions were answered. The patient understood and wished to proceed. Time out called, patient name, date of , medical record number, allergies, procedure performed, identify Switch House Operator, patient and staff member concurred with accurate data, procedure carried on. Findings: LEFT HEART CATHETERIZATION FINDINGS: 1. Left main: The left main coronary artery is widely patent without any significant obstructive disease. 2. Left anterior descending: The proximal LAD at the takeoff of 1st diagonal and 1st septal has 90% stenosis. Diagonal branches have mild luminal irregularities without any significant obstructive angiographic disease. 3. Left circumflex: The left circumflex artery is small. The proximal OM1 has 80% stenosis. This is a small vessel. The proximal OM2 has 80% stenosis. This is a large branch. 4. Right coronary artery: The mid RCA is a EX[employer]LECTIONS MANAGER. Distal vessel fills via [id number] collaterals. 5. Left ventricle: A. End-diastolic pressure 9 mmHg. B. LV gram deferred. C. A gradient of 30 mm across aortic valve was noted on catheter pullback. 6. Opening AO pressure 149/89 mm Hg and closing AO pressure 113/70 mm Hg. Description of Procedure: Informed consent signed and placed in the chart. Patient transferred to lab support tech room. Prepped and draped in usual sterile fashion. 2% lidocaine in left groin area. Micropuncture needle used to access left common femoral artery with Seldinger technique under fluoroscopic guidance. J wire advanced, micropuncture cannula placed. Left iliofemoral angiogram performed, access confirmed and micropuncture cannula exchanged for 5-FR sheath. Five [place] JL 3.5 diagnostic catheter engaged Left Main Coronary Artery. 5 [place] JR4 diagnostic catheter engaged Right Coronary Artery. Multiple orthogonal angiogram obtained and reviewed. 5 [place] JR4 diagnostic catheter crossed aortic valve to obtain LVEDP, LV angiogram deferred. Hemostasis was achieved by 6 [place] Angio-Seal. Assessment: Triple-vessel obstructive CAD with 90% stenosis in the proximal LAD, 80% stenosis in small OM1 and 80% stenosis in large OM2, EX[employer]LE[employer] MANAGER of mid RCA with [id number] collaterals filling distal vessel. Aortic stenosis Acute hypoxic respiratory failure of-intubated and sedated LVEDP of 9 mm Hg Post Operative Condition: Stable No significant blood loss Disposition: ICU Plan: The patient will be monitored in the recovery area. CT surgery for CABG given obstructive triple-vessel coronary artery disease. Follow-up echo for severely of aortic stenosis. Continue aspirin 81 mg daily. Do not load with 2nd antiplatelet agent. Continue statin. Continue Coreg. IV fluids normal saline at 100 mL/hour for 500 mL. The above findings were discussed with the referring physician. Continue aggressive medical therapy and risk factor modification. Octavia Valdez MD, MS, FACC, [facility] Interventional Cardiology
--- NOTE | 2025-01-26 12:40 | PC.NURSE ---
Pt returned from cardiac cath.
[2025-01-26] MEDS: HEPARIN SOD/D5W 100 UNITS/ML 25,000 UNITS/250 ML BAG 11 UNITS IV CONT (12:46)
[2025-01-26 18:33] LABS: Partial Thromboplastin Time 112.5 Seconds (22.3-36.8)
[2025-01-26] MEDS: ATORVASTATIN 40 MG TABLET 80 MG PO (21:35)
[2025-01-27] VITALS (44 sets, daily range): BP systolic 107–206; BP diastolic 62–101; PULSE 51–82; RESP 15–25; TEMP 37.3–37.8; O2SAT 97–100
[2025-01-27 00:38] LABS: Partial Thromboplastin Time 88.6 Seconds (22.3-36.8)
[2025-01-27] MEDS: IPRATROPIUM 0.5 MG/ALBUTEROL SULFATE 2.5 MG (BASE) AMPUL.NEB 3 ML INHALATION ×4 (02:12→20:18)
[2025-01-27] MEDS: PIPERACILLIN/TAZOBACTAM SOD 3.375 GM in SODIUM CHLORIDE 0.9% IV 50 ML 100 ML IVPB ×4 (04:49→22:05)
[2025-01-27] MEDS: CENTRAL LINE FLUSH 10 ML IV PUSH ×3 (04:49→20:32)
[2025-01-27] MEDS: LACTATED RINGERS 1,000 ML 75 ML IV CONT (05:09)
[2025-01-27 05:28] LABS: Alveolar/Arterial O2 Gradient 150.3 mmHg; Carboxyhemoglobin 0.9 % THb (0-2.0); Fractional Inspired Oxygen 40 %; HCO3 ABG 24.4 mEq/l (22.0-26.0); Methemoglobin ABG 0.1 %THb (0-1.5); Oxygen Content ABG 17.7 %vol (16.0-22.0); Oxygen Saturation ABG 97.3 % (95.0-100.0); PCO2 ABG 37.5 mmHg (35.0-45.0); PO2 ABG 91.8 mmHg (80.0-100.0); PO2 FiO2 Ratio Arterial Blood 2.30 %; Reduced Hemoglobin 2.8 %THb (0-5.0)
[2025-01-27 05:29] LABS: Arterial Blood Gas Ventilator rate 18 /MIN; Modified Allen's Test Unable to perform; Site Drawn RIGHT RADIAL
[2025-01-27 05:30] LABS: Arterial Blood Gas Tidal Volume 420 ml
[2025-01-27 05:42] LABS: Hematocrit 37.5 % (42.0-52.0); Hemoglobin 12.4 g/dL (14.0-18.0); Immature Granulocyte Percent A 0.6 % (0-0.5); Lymphocytes Absolute Auto 2.08 K/mm3 (0.9-3.2); Mean Corpuscular HGB Conc 33.1 g/dl (32-36); Mean Corpuscular Hemoglobin 33.2 pg (26-34); Mean Corpuscular Volume 100.5 fl (80-100); Nucleated Red Blood Cells Absolute Auto 0.000 K/mm3 (0.0-0.012); Nucleated Red Blood Cells Perc 0.0 % (0.0-0.2); Platelet Count Result 203 k/mm3 (150-375); Red Blood Count 3.73 M/mm3 (4.6-6.20); White Blood Count 10.4 K/mm3 (4.5-10.0)
[2025-01-27 05:54] LABS: Alanine Aminotransferase 30 U/L (6-50); Albumin Level 2.9 g/dL (3.5-5.1); Alkaline Phosphatase 58 U/L (38-126); Anion Gap 3 mmol/L (4-12); Aspartate Amino Transferase 41 U/L (17-59); Bilirubin,Total 1.0 mg/dL (0.2-1.3); Blood Urea Nitrogen 15 mg/dL (9-20); Calcium 8.2 mg/dL (8.4-10.2); Carbon Dioxide 27 mmol/L (22-30); Chloride 103 mmol/L (98-107); Estimated CRCL calculation 62 ml/min; Estimated Glomerular Filt Rate 51; Glucose 123 mg/dL (65-110); Magnesium 1.5 mg/dL (1.6-2.3); Potassium 3.7 mmol/L (3.4-5.0); Sodium 133 mmol/L (137-145); Total Protein 5.6 g/dL (6.3-8.2)
[2025-01-27 05:57] LABS: Partial Thromboplastin Time 80.6 Seconds (22.3-36.8)
[2025-01-27] MEDS: ASPIRIN 81 MG ENTERIC TABLET PO (08:26)
[2025-01-27] MEDS: MAGNESIUM SULF 2 GM/WATER 50ML 2 GM/50 ML BAG IVPB (08:26)
[2025-01-27] MEDS: EMPAGLIFLOZIN 10 MG TABLET PO (08:26)
[2025-01-27] MEDS: POTASSIUM CHLORIDE 20 MEQ PACKET (FOR LIQUID) 40 MEQ PO (08:27)
[2025-01-27] MEDS: PANTOPRAZOLE SODIUM IV 40 MG VIAL IV PUSH (08:27)
[2025-01-27] MEDS: MINERAL OIL/WHITE PETROLATUM OINTMENT 1 APPLIC EACH EYE ×2 (08:27→20:32)
--- NOTE | 2025-01-27 10:00 | PM.PNCARD ---
Progress Note: A&P Assessment and Plan (1) Cardiac arrest with ventricular fibrillation: Code(s): I46.9 - Cardiac arrest, cause unspecified; I49.01 - Ventricular fibrillation Status: Acute (2) Chronic atrial fibrillation: Code(s): I48.20 - Chronic atrial fibrillation, unspecified Status: Acute (3) Paroxysmal atrial fibrillation: Code(s): I48.0 - Paroxysmal atrial fibrillation Status: Acute (4) Coronary artery disease involving [place] coronary artery of [place] heart without angina pectoris: Code(s): I25.10 - Atherosclerotic heart disease of [place] coronary artery without angina pectoris Status: Acute Plan 79-year-old man with chronic systolic heart failure (LVEF 45-50% in 2021), chronic atrial fibrillation status post ablation on Eliquis, coronary artery disease, hypertension, and alcohol abuse who initially presented a week after mechanical fall with right wrist fracture with superficial infection who suffered a VFib arrest who underwent hypothermic protocol and cardiac catheterization showing multivessel obstructive CAD and an echocardiogram showing moderate aortic stenosis with relatively preserved biventricular systolic function VFib arrest status post ROSC -sp hypothermic protocol -evaluate mental status today -continue lidocaine drip given concerns of ischemic electrical instability NSTEMI -likely demand -was found to have severe obstructive CAD -continue aspirin 81 mg p.o. daily and atorvastatin 80 mg every evening -carvedilol 3.125 mg p.o. b.i.d. can be uptitrated for goal HR <70 -eventual transfer for CT surgery consultation if mentation and respiratory status improves Chronic atrial fibrillation status post ablation -Eliquis on hold -continue heparin drip -home amiodarone on hold Moderate aortic stenosis -CTS consultation given his severe multivessel obstructive CAD -likely to progress to severe in near future Subjective Date/time seen: 01/27/25 10:00 Interval history: Intubated. Weaning sedation. Review of Systems Review of Systems: ROS unobtainable: Yes unobtainable due to endotracheal tube Exam Const: Other: Intubated and sedated HENMT: Mouth: Yes moist mucous membranes Eyes: EOM: EOMs intact bilaterally Neck: Neck: no JVD Resp: Effort & Inspection: normal respiratory effort Auscultation: clear to auscultation bilaterally Cardio: Rate: regular rate Rhythm: regular rhythm GI: GI Palp: Yes Soft to palpation Extrem: General: no pedal edema Objective Data Vital Signs Vital Signs: Vital Signs - 24 hr 01/26/25 10:42 01/26/25 10:42 01/26/25 10:55 Temperature Pulse Rate 61 61 59 L Respiratory Rate 18 18 Blood Pressure Pulse Oximetry 100 Oxygen Delivery Mechanical Ventilation Fraction of Inspired Oxygen 55 01/26/25 11:00 01/26/25 12:44 01/26/25 12:45 Temperature 37.4 C Pulse Rate 100 72 73 Respiratory Rate 18 Blood Pressure 110/64 156/87 H Pulse Oximetry 100 Oxygen Delivery Fraction of Inspired Oxygen 01/26/25 12:45 01/26/25 12:45 01/26/25 12:55 Temperature 37.3 C Pulse Rate 73 73 73 Respiratory Rate 25 H 25 H 25 H Blood Pressure 156/87 H Pulse Oximetry 97 Oxygen Delivery Fraction of Inspired Oxygen 01/26/25 12:55 01/26/25 13:00 01/26/25 13:00 Temperature 37.3 C Pulse Rate 60 73 Respiratory Rate 20 Blood Pressure 189/92 H Pulse Oximetry 100 100 Oxygen Delivery Mechanical Ventilation Mechanical Ventilation Fraction of Inspired Oxygen 55 55 01/26/25 13:00 01/26/25 13:10 01/26/25 13:25 Temperature 37.3 C 37.3 C Pulse Rate 78 70 Respiratory Rate 18 24 H Blood Pressure 189/92 H 123/72 Pulse Oximetry 100 100 Oxygen Delivery Fraction of Inspired Oxygen 55 01/26/25 13:40 01/26/25 14:00 01/26/25 14:00 Temperature 37.3 C 37.3 C Pulse Rate 64 57 L 57 L Respiratory Rate 18 18 Blood Pressure 111/69 108/55 L 108/55 L Pulse Oximetry 100 100 Oxygen Delivery Fraction of Inspired Oxygen 01/26/25 14:00 01/26/25 14:00 01/26/25 14:00 Temperature Pulse Rate 57 L 57 L 57 L Respiratory Rate 18 18 Blood Pressure Pulse Oximetry Oxygen Delivery Fraction of Inspired Oxygen 01/26/25 14:05 01/26/25 14:10 01/26/25 14:10 Temperature 37.2 C Pulse Rate 57 L 60 59 L Respiratory Rate 18 18 Blood Pressure 117/62 Pulse Oximetry 100 100 Oxygen Delivery Mechanical Ventilation Fraction of Inspired Oxygen 55 01/26/25 14:40 01/26/25 14:52 01/26/25 15:00 Temperature 37.2 C 37.2 C Pulse Rate 59 L 58 L 58 L Respiratory Rate 18 18 18 Blood Pressure 119/61 122/65 Pulse Oximetry 100 100 Oxygen Delivery Fraction of Inspired Oxygen 01/26/25 15:40 01/26/25 16:00 01/26/25 16:00 Temperature 37.2 C 37.3 C Pulse Rate 71 63 63 Respiratory Rate 21 H 18 Blood Pressure 169/88 H 117/66 117/66 Pulse Oximetry 100 100 Oxygen Delivery Fraction of Inspired Oxygen 01/26/25 16:00 01/26/25 16:00 01/26/25 16:00 Temperature Pulse Rate 63 63 Respiratory Rate 18 18 Blood Pressure Pulse Oximetry Oxygen Delivery Mechanical Ventilation Fraction of Inspired Oxygen 55 01/26/25 16:00 01/26/25 16:00 01/26/25 16:40 Temperature 37.3 C Pulse Rate 66 59 L Respiratory Rate 18 Blood Pressure 121/62 Pulse Oximetry 100 Oxygen Delivery Fraction of Inspired Oxygen 55 01/26/25 17:00 01/26/25 17:40 01/26/25 18:00 Temperature 37.3 C 37.3 C 37.4 C Pulse Rate 56 L 84 79 Respiratory Rate 18 21 H 22 H Blood Pressure 114/63 167/77 H 179/85 H Pulse Oximetry 100 100 100 Oxygen Delivery Fraction of Inspired Oxygen 01/26/25 18:00 01/26/25 18:00 01/26/25 18:00 Temperature Pulse Rate 79 79 79 Respiratory Rate 22 H 22 H Blood Pressure 179/85 H Pulse Oximetry Oxygen Delivery Fraction of Inspired Oxygen 01/26/25 18:00 01/26/25 19:00 01/26/25 19:20 Temperature 37.2 C Pulse Rate 79 67 80 Respiratory Rate 18 21 H Blood Pressure 109/62 Pulse Oximetry 100 Oxygen Delivery Fraction of Inspired Oxygen 01/26/25 20:00 01/26/25 20:00 01/26/25 20:00 Temperature Pulse Rate 73 71 78 Respiratory Rate 18 18 Blood Pressure 123/69 Pulse Oximetry Oxygen Delivery Fraction of Inspired Oxygen 01/26/25 20:00 01/26/25 20:00 01/26/25 20:00 Temperature 37.5 C Pulse Rate 66 66 Respiratory Rate 18 18 Blood Pressure 144/77 H Pulse Oximetry 100 100 Oxygen Delivery Mechanical Ventilation Fraction of Inspired Oxygen 40 40 01/26/25 20:00 01/26/25 20:20 01/26/25 20:45 Temperature Pulse Rate 66 55 L 55 L Respiratory Rate 18 Blood Pressure Pulse Oximetry 100 Oxygen Delivery Mechanical Ventilation Fraction of Inspired Oxygen 55 01/26/25 20:52 01/26/25 21:00 01/26/25 22:00 Temperature Pulse Rate 55 L 56 L 70 Respiratory Rate 18 18 20 Blood Pressure 113/61 159/76 H Pulse Oximetry 99 100 Oxygen Delivery Fraction of Inspired Oxygen 01/26/25 22:00 01/26/25 22:00 01/26/25 22:00 Temperature Pulse Rate 64 70 70 Respiratory Rate 20 Blood Pressure 159/76 H Pulse Oximetry Oxygen Delivery Fraction of Inspired Oxygen 01/26/25 22:00 01/26/25 22:49 01/26/25 23:00 Temperature 37.4 C Pulse Rate 70 63 57 L Respiratory Rate 20 18 Blood Pressure 115/68 Pulse Oximetry 100 99 Oxygen Delivery Mechanical Ventilation Fraction of Inspired Oxygen 45 01/26/25 23:49 01/27/25 00:00 01/27/25 00:00 Temperature 37.4 C Pulse Rate 58 L 55 L Respiratory Rate 18 18 Blood Pressure 122/80 Pulse Oximetry 100 100 Oxygen Delivery Mechanical Ventilation Fraction of Inspired Oxygen 40 40 01/27/25 00:00 01/27/25 01:07 01/27/25 01:30 Temperature Pulse Rate 56 L 78 66 Respiratory Rate 25 H 18 Blood Pressure 121/67 Pulse Oximetry 98 Oxygen Delivery Fraction of Inspired Oxygen 01/27/25 02:00 01/27/25 02:00 01/27/25 02:00 Temperature Pulse Rate 56 L 56 L 56 L Respiratory Rate 18 Blood Pressure 110/65 110/65 Pulse Oximetry Oxygen Delivery Fraction of Inspired Oxygen 01/27/25 02:00 01/27/25 02:00 01/27/25 02:00 Temperature 37.6 C Pulse Rate 56 L 56 L 56 L Respiratory Rate 20 18 Blood Pressure 110/65 Pulse Oximetry 98 Oxygen Delivery Fraction of Inspired Oxygen 01/27/25 02:13 01/27/25 02:13 01/27/25 02:22 Temperature Pulse Rate 54 L 55 L 67 Respiratory Rate 18 20 Blood Pressure Pulse Oximetry 100 Oxygen Delivery Mechanical Ventilation Fraction of Inspired Oxygen 40 01/27/25 03:00 01/27/25 03:31 01/27/25 03:45 Temperature Pulse Rate 73 60 Respiratory Rate 18 18 Blood Pressure 136/79 Pulse Oximetry 97 99 Oxygen Delivery Mechanical Ventilation Fraction of Inspired Oxygen 40 40 01/27/25 04:00 01/27/25 04:00 01/27/25 04:00 Temperature 37.5 C Pulse Rate 60 60 60 Respiratory Rate 18 18 Blood Pressure 115/70 Pulse Oximetry 99 Oxygen Delivery Fraction of Inspired Oxygen 01/27/25 04:00 01/27/25 04:00 01/27/25 05:00 Temperature 37.6 C Pulse Rate 60 60 61 Respiratory Rate 20 18 Blood Pressure 115/70 134/74 Pulse Oximetry 99 Oxygen Delivery Fraction of Inspired Oxygen 01/27/25 05:05 01/27/25 06:00 01/27/25 06:00 Temperature Pulse Rate 61 55 L 55 L Respiratory Rate 18 Blood Pressure 121/66 Pulse Oximetry 98 Oxygen Delivery Mechanical Ventilation Fraction of Inspired Oxygen 40 01/27/25 06:00 01/27/25 06:00 01/27/25 06:00 Temperature 37.4 C Pulse Rate 55 L 55 L 55 L Respiratory Rate 18 18 Blood Pressure 121/66 Pulse Oximetry 100 Oxygen Delivery Fraction of Inspired Oxygen 01/27/25 07:00 01/27/25 07:48 01/27/25 07:48 Temperature 37.3 C Pulse Rate 51 L 66 66 Respiratory Rate 18 20 Blood Pressure 107/62 Pulse Oximetry 100 100 Oxygen Delivery Mechanical Ventilation Fraction of Inspired Oxygen 40 01/27/25 07:56 01/27/25 08:00 01/27/25 08:00 Temperature 37.4 C Pulse Rate 75 66 Respiratory Rate 20 18 Blood Pressure 195/92 H Pulse Oximetry 100 100 Oxygen Delivery Mechanical Ventilation Fraction of Inspired Oxygen 01/27/25 08:00 01/27/25 08:00 01/27/25 08:15 Temperature Pulse Rate 71 82 Respiratory Rate 16 Blood Pressure Pulse Oximetry Oxygen Delivery Fraction of Inspired Oxygen 40 01/27/25 08:15 01/27/25 09:00 Temperature 37.4 C Pulse Rate 73 71 Respiratory Rate 16 17 Blood Pressure 116/65 Pulse Oximetry 100 Oxygen Delivery Fraction of Inspired Oxygen Intake/Output Intake/Output: Intake & Output 01/24/25 01/25/25 01/26/25 01/27/25 23:59 23:59 23:59 23:59 Intake Total 4480.4 2237.0 3351.9 1445.4 Output Total 1635 757 425 525 Balance 2845.4 1480.0 2926.9 920.4 Meds/Results Medications: Active Medications Generic Name Dose Route Start Last Admin Trade Name Freq PRN Reason Stop Dose Admin Albuterol/Ipratropium 3 ml 01/24/25 02:00 01/27/25 07:48 Ipratropium 0.5 Mg/Albuterol Sulfate 2.5 Mg (Base) Ampul.Neb 3 Ml INHALATION 3 ml Q6HRT JOCELYNE Administration Aspirin 81 mg 01/24/25 12:00 01/27/25 08:26 Aspirin 81 Mg Enteric Tablet PO 81 mg QAM JOCELYNE Administration Atorvastatin Calcium 80 mg 01/24/25 21:00 01/26/25 21:35 Atorvastatin 40 Mg Tablet PO 80 mg QHS JOCELYNE Administration Carvedilol 3.125 mg 01/24/25 21:00 Carvedilol 3.125 Mg Tablet PO On Hold: 01/24/25 21:00 Q12HR JOCELYNE Empagliflozin 10 mg 01/27/25 09:00 01/27/25 08:26 Empagliflozin 10 Mg Tablet PO 10 mg DAILY JOCELYNE Administration Heparin Sodium (Porcine) 4,000 units 01/23/25 17:10 01/26/25 05:41 Heparin Sodium 5,000 Units/Ml Vial IV PUSH 4,000 units PRN PRN Administration aPTT less than 55 seconds Heparin Sodium (Porcine) 4,000 units 01/23/25 17:10 Heparin Sodium 5,000 Units/Ml Vial IV PUSH PRN PRN aPTT 55 - 70 seconds Hydralazine HCl 10 mg 01/24/25 11:31 01/24/25 14:05 Hydralazine Hcl 20 Mg/Ml Vial IV PUSH 10 mg Q4H PRN Administration Blood Pressure - High Heparin Sodium/Dextrose 25,000 units in 250 mls @ 9 mls/hr 01/23/25 17:10 01/27/25 06:00 Heparin Sodium/D5w 100 Units/Ml IV CONT 900 units/hr .Q24H JOCELYNE 9 mls/hr Protocol Titration 900 UNITS/HR Fentanyl Citrate 2,500 mcg in 250 mls @ 0 mls/hr 01/23/25 21:15 01/27/25 08:15 Fentanyl 2,500 Mcg/Ns 250 Ml IV CONT 0 mcg/hr .Q0M JOCELYNE 0 mls/hr Protocol Titration Piperacillin Sod/Tazobactam 50 mls @ 100 mls/hr 01/23/25 22:00 01/27/25 08:56 Sod 3.375 gm/ Sodium Chloride IVPB 100 mls/hr Q6H JOCELYNE Administration Lactated Ringer's 1,000 mls @ 75 mls/hr 01/24/25 10:00 01/27/25 05:09 Lr - Lactated Ringers Iv IV CONT 75 mls/hr .[id number] JOCELYNE Administration Midazolam HCl 100 mg in 100 mls @ 0 mls/hr 01/24/25 12:20 01/27/25 08:15 Versed 100 Mg/Ns 100 Ml IV CONT 0 mg/hr .Q0M JOCELYNE 0 mls/hr Protocol Titration Lidocaine HCl/Dextrose 2 gm in 500 mls @ 15 mls/hr 01/24/25 13:30 01/27/25 06:00 Lidocaine In D5w 4 Mg/Ml IV CONT 1 mg/min .Q24H JOCELYNE 15 mls/hr 1 MG/MIN Infusion Multi-Ingred Cream/Lotion/Oil/Oint 1 applic 01/24/25 09:00 01/27/25 08:27 Mineral Oil/White Petrolatum Ointment EACH EYE 1 applic Q12HR JOCELYNE Administration Pantoprazole Sodium 40 mg 01/24/25 09:00 01/27/25 08:27 Pantoprazole Sodium Iv 40 Mg Vial IV PUSH 40 mg DAILY JOCELYNE Administration Sodium Chloride 10 ml 01/24/25 06:00 01/27/25 04:49 Central Line Flush IV PUSH 10 ml Q8HR JOCELYNE Administration Sodium Chloride 20 ml 01/23/25 22:48 Central Line Flush IV PUSH PRN PRN after blood draws Radiology Results: ITS Impressions Head CT 01/23/25 19:11 IMPRESSION: No acute intracranial hemorrhage or extra axial fluid collections. Bilateral mastoiditis. All CT scans at this facility are performed using low dose modulation techniques as appropriate to perform exam including the following: automated exposure control; use of iterative reconstruction technique; adjustment of the mA and/or kV according to patient size (this includes techniques or standardized protocols for targeted exams where dose is matched to indication/reason for exam). Chest/Abdomen/Pelvis CT 01/23/25 19:16 IMPRESSION: Bilateral lower lobe consolidation may represent pneumonia. No acute abdominal or pelvic findings. All CT scans at this facility are performed using low dose modulation techniques as appropriate to perform exam including the following: automated exposure control; use of iterative reconstruction technique; adjustment of the mA and/or kV according to patient size (this includes techniques or standardized protocols for targeted exams where dose is matched to indication/reason for exam). Venous Doppler Study 01/24/25 11:45 IMPRESSION: 1. No DVT either leg. Ankle Brachial Index 01/24/25 11:52 IMPRESSION: 1. Artery pressures and the pressures at the right and left brachial, posterior tibial and dorsalis pedis arteries were unable to be obtained likely due to markedly increased pressures with right and left great toe pressures of 212 and 214 mmHg respectively. Chest X-Ray 01/27/25 07:16 IMPRESSION: 1. Proximal side-port of the nasogastric tube in the distal esophagus. Recommend advancement by 6 cm. 2. Small bilateral pleural effusions with associated atelectasis, mild pulmonary edema and/or pneumonia in the bilateral lower lung zones. Labs Labs: Laboratory Results - last 24 hr 01/26/25 01/26/25 01/26/25 12:59 18:10 18:20 WBC RBC Hgb Hct MCV MCH MCHC RDW Plt Count MPV Immature Gran % (Auto) Neut % (Auto) Lymph % (Auto) [place] % (Auto) Eos % (Auto) Baso % (Auto) Lymph # (Auto) [place] # (Auto) Eos # (Auto) Baso # (Auto) Abs Immat Gran (auto) Absolute Neuts (auto) Absolute Nucleated RBC Nucleated RBC % APTT 112.5 H Puncture Site ABG pH ABG pCO2 ABG pO2 ABG PO2/FiO2 Ratio ABG HCO3 ABG O2 Saturation ABG O2 Content ABG Base Excess A-a Gradient Oxyhemoglobin Carboxyhemoglobin Methemoglobin Reduced Hemoglobin Total Hemoglobin O2 Delivery Device O2 Liters/Min Minute Volume Vent Rate Vent Mode FiO2 Tidal Volume PEEP Peak Inspir Pressure Pressure Support Sodium Potassium Chloride Carbon Dioxide Anion Gap BUN Creatinine Estim Creat Clear Calc Estimated GFR Glucose POC Capillary Glucose 114 H 130 H Lactic Acid Calcium Phosphorus Magnesium Total Bilirubin AST ALT Alkaline Phosphatase Total Protein Albumin 01/26/25 01/27/25 01/27/25 23:00 00:17 05:18 WBC RBC Hgb Hct MCV MCH MCHC RDW Plt Count MPV Immature Gran % (Auto) Neut % (Auto) Lymph % (Auto) [place] % (Auto) Eos % (Auto) Baso % (Auto) Lymph # (Auto) [place] # (Auto) Eos # (Auto) Baso # (Auto) Abs Immat Gran (auto) Absolute Neuts (auto) Absolute Nucleated RBC Nucleated RBC % APTT 88.6 H Puncture Site Right radial ABG pH 7.431 ABG pCO2 37.5 ABG pO2 91.8 ABG PO2/FiO2 Ratio 2.30 ABG HCO3 24.4 ABG O2 Saturation 97.3 ABG O2 Content 17.7 ABG Base Excess 0.3 A-a Gradient 150.3 Oxyhemoglobin 96.2 Carboxyhemoglobin 0.9 Methemoglobin 0.1 Reduced Hemoglobin 2.8 Total Hemoglobin 13.0 O2 Delivery Device Ventilator O2 Liters/Min Not Reportable Minute Volume Not Reportable Vent Rate 18 Vent Mode Cmv FiO2 40 Tidal Volume 420 PEEP 8 Peak Inspir Pressure Not Reportable Pressure Support Not Reportable Sodium Potassium Chloride Carbon Dioxide Anion Gap BUN Creatinine Estim Creat Clear Calc Estimated GFR Glucose POC Capillary Glucose 113 H Lactic Acid Calcium Phosphorus Magnesium Total Bilirubin AST ALT Alkaline Phosphatase Total Protein Albumin 01/27/25 05:36 WBC 10.4 H RBC 3.73 L Hgb 12.4 L Hct 37.5 L MCV 100.5 H MCH 33.2 MCHC 33.1 RDW 13.7 Plt Count 203 MPV 9.8 Immature Gran % (Auto) 0.6 H Neut % (Auto) 68.3 Lymph % (Auto) 19.9 [place] % (Auto) 10.7 H Eos % (Auto) 0.2 Baso % (Auto) 0.3 Lymph # (Auto) 2.08 [place] # (Auto) 1.1 H Eos # (Auto) 0.0 Baso # (Auto) 0.0 Abs Immat Gran (auto) 0.06 H Absolute Neuts (auto) 7.1 H Absolute Nucleated RBC 0.000 Nucleated RBC % 0.0 APTT 80.6 H Puncture Site ABG pH ABG pCO2 ABG pO2 ABG PO2/FiO2 Ratio ABG HCO3 ABG O2 Saturation ABG O2 Content ABG Base Excess A-a Gradient Oxyhemoglobin Carboxyhemoglobin Methemoglobin Reduced Hemoglobin Total Hemoglobin O2 Delivery Device O2 Liters/Min Minute Volume Vent Rate Vent Mode FiO2 Tidal Volume PEEP Peak Inspir Pressure Pressure Support Sodium 133 L Potassium 3.7 Chloride 103 Carbon Dioxide 27 Anion Gap 3 L BUN 15 Creatinine 1.35 H Estim Creat Clear Calc 62 Estimated GFR 51 L Glucose 123 H POC Capillary Glucose Lactic Acid 1.3 Calcium 8.2 L Phosphorus 3.3 Magnesium 1.5 L Total Bilirubin 1.0 AST 41 ALT 30 Alkaline Phosphatase 58 Total Protein 5.6 L Albumin 2.9 L
[2025-01-27] MEDS: FUROSEMIDE INJ 40 MG/4 ML VIAL IV PUSH (11:49)
--- NOTE | 2025-01-27 11:59 | WPDINTPN2 ---
Assessment and Plan Assessment and Plan (1) Acute respiratory failure: Code(s): J96.00 - Acute respiratory failure, unspecified whether with hypoxia or hypercapnia Status: Acute Assessment and Plan: Acute respiratory failure likely related to cardiac arrest. Also pulmonary edema, pneumonia as seen on CT chest -intubated on 01/23/2025 -currently on CMV mode of ventilation, peep of 5, 40% FiO2 -chest x-ray and ABGs reviewed -continue bronchodilator -off all sedation, will allow patient to wake up and evaluate neurological status, -once his neurological status improves and place him on SBT and evaluate for extubation (2) Cardiac arrest with ventricular fibrillation: Code(s): I46.9 - Cardiac arrest, cause unspecified; I49.01 - Ventricular fibrillation Status: Acute Assessment and Plan: 01/23: Patient presented the ED with dizziness and nausea. While he was in the ER waiting room, went unresponsive, was in VFib arrest -status post VFib cardiac arrest, requiring defibrillation x1, epinephrine x1 and CPR before ROSC. 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 (3) Mixed hyperlipidemia: Code(s): E78.2 - Mixed hyperlipidemia Status: Acute Assessment and Plan: Contain atorvastatin (4) Chronic atrial fibrillation: Code(s): I48.20 - Chronic atrial fibrillation, unspecified Status: Acute Assessment and Plan: Currently in ventricular bigeminy, will hold amiodarone infusion -hold Coreg -continue heparin infusion and lidocaine infusion per Cardiology Plan DVT prophylaxis: Heparin infusion Stress ulcer prophylaxis: Protonix Nutrition: Tolerating tube feeds Code Status: Full code Critical Care Time Spent: 33 minutes Discussed with cardiology Discussed with sonBenedicto and updated him with patient's condition and plan of care. He is aware that patient is off all sedation, the goal is to wake him up and evaluate his mentation, once mentation is better with place him on SBT and evaluate for extubation Due to a high probability of clinically significant, life threatening deterioration, the patient required my highest level of preparedness to intervene emergently and I personally spent this critical care time directly and personally managing the patient. This critical care time included obtaining a history; examining the patient; pulse oximetry; ordering and review of studies; arranging urgent treatment with development of a management plan; evaluation of patient's response to treatment; frequent reassessment; and discussions with other providers. It was exclusive of separately billable procedures and treating other patients and teaching time. Please see Assessment and Plan section and the rest of the note for further information on patient assessment and treatment This dictation may have been done utilizing a voice recognition system. Attempts have been made to correct errors. However, there may be uncorrected grammatical, spelling, and recognitions errors present. Subjective Date/time seen: 01/27/25 11:59 Interval history: Reason for consult: Cardiac arrest, ventricular fibrillation, respiratory failure post cardiac arrest, presented with dizziness along with nausea to the ER on 01/23/2025 01/27/2025: Patient seen and examined the ICU, remains intubated on CMV mode of ventilation, peep of 8, 40% FiO2. OFF Sedation, Does open his eyes but does not follow any commands. Afebrile, UO is adequate, creatinine slightly increased, remains on lidocaine and heparin infusion. No episodes of arrhythmias, hemodynamically stable, not on any pressors. Review of Systems Review of Systems: ROS unobtainable: Yes unobtainable due to endotracheal tube, unobtainable due to medical condition and unobtainable due to mental status Exam Narrative: General: Intubated, sedated, not in acute distress HEENT:? Pupils equal and reactive, sclera is clear, ETT in place Neck:? Supple Respiratory:? Coarse breath sounds bilaterally, decreased at bases, no wheeze Cardiac:? Irregularly irregular rhythm, bradycardic Abdomen:? Soft, nontender, nondistended, hypoactive bowel sound Extremities:? Trace edema bilaterally, palpable pulses. Ruptured blisters noted on the right hand, edematous currently in a splint and Heber wrap Neuro:? Patient is intubated, OFF sedation, opens his eyes but does not follow commands, does not withdraw to pain Skin:? No lesions noted Psych:? Unable to assess at this time Objective Data Vital Signs Vital Signs: Vital Signs - 24 hr 01/26/25 12:44 01/26/25 12:45 01/26/25 12:45 Temperature Pulse Rate 72 73 73 Respiratory Rate 25 H Blood Pressure 156/87 H Pulse Oximetry Oxygen Delivery Fraction of Inspired Oxygen 01/26/25 12:45 01/26/25 12:55 01/26/25 12:55 Temperature 99.1 F Pulse Rate 73 73 60 Respiratory Rate 25 H 25 H Blood Pressure 156/87 H Pulse Oximetry 97 100 Oxygen Delivery Mechanical Ventilation Fraction of Inspired Oxygen 55 01/26/25 13:00 01/26/25 13:00 01/26/25 13:00 Temperature 99.2 F Pulse Rate 73 Respiratory Rate 20 Blood Pressure 189/92 H Pulse Oximetry 100 Oxygen Delivery Mechanical Ventilation Fraction of Inspired Oxygen 55 55 01/26/25 13:10 01/26/25 13:25 01/26/25 13:40 Temperature 99.1 F 99.2 F 99.1 F Pulse Rate 78 70 64 Respiratory Rate 18 24 H 18 Blood Pressure 189/92 H 123/72 111/69 Pulse Oximetry 100 100 100 Oxygen Delivery Fraction of Inspired Oxygen 01/26/25 14:00 01/26/25 14:00 01/26/25 14:00 Temperature 99.1 F Pulse Rate 57 L 57 L 57 L Respiratory Rate 18 18 Blood Pressure 108/55 L 108/55 L Pulse Oximetry 100 Oxygen Delivery Fraction of Inspired Oxygen 01/26/25 14:00 01/26/25 14:00 01/26/25 14:05 Temperature Pulse Rate 57 L 57 L 57 L Respiratory Rate 18 Blood Pressure Pulse Oximetry 100 Oxygen Delivery Mechanical Ventilation Fraction of Inspired Oxygen 55 01/26/25 14:10 01/26/25 14:10 01/26/25 14:40 Temperature 99.0 F 99.0 F Pulse Rate 60 59 L 59 L Respiratory Rate 18 18 18 Blood Pressure 117/62 119/61 Pulse Oximetry 100 100 Oxygen Delivery Fraction of Inspired Oxygen 01/26/25 14:52 01/26/25 15:00 01/26/25 15:40 Temperature 99.0 F 99.0 F Pulse Rate 58 L 58 L 71 Respiratory Rate 18 18 21 H Blood Pressure 122/65 169/88 H Pulse Oximetry 100 100 Oxygen Delivery Fraction of Inspired Oxygen 01/26/25 16:00 01/26/25 16:00 01/26/25 16:00 Temperature 99.1 F Pulse Rate 63 63 63 Respiratory Rate 18 18 Blood Pressure 117/66 117/66 Pulse Oximetry 100 Oxygen Delivery Fraction of Inspired Oxygen 01/26/25 16:00 01/26/25 16:00 01/26/25 16:00 Temperature Pulse Rate 63 66 Respiratory Rate 18 Blood Pressure Pulse Oximetry Oxygen Delivery Mechanical Ventilation Fraction of Inspired Oxygen 55 01/26/25 16:00 01/26/25 16:40 01/26/25 17:00 Temperature 99.1 F 99.1 F Pulse Rate 59 L 56 L Respiratory Rate 18 18 Blood Pressure 121/62 114/63 Pulse Oximetry 100 100 Oxygen Delivery Fraction of Inspired Oxygen 55 01/26/25 17:40 01/26/25 18:00 01/26/25 18:00 Temperature 99.2 F 99.3 F Pulse Rate 84 79 79 Respiratory Rate 21 H 22 H Blood Pressure 167/77 H 179/85 H 179/85 H Pulse Oximetry 100 100 Oxygen Delivery Fraction of Inspired Oxygen 01/26/25 18:00 01/26/25 18:00 01/26/25 18:00 Temperature Pulse Rate 79 79 79 Respiratory Rate 22 H 22 H Blood Pressure Pulse Oximetry Oxygen Delivery Fraction of Inspired Oxygen 01/26/25 19:00 01/26/25 19:20 01/26/25 20:00 Temperature 98.9 F Pulse Rate 67 80 73 Respiratory Rate 18 21 H Blood Pressure 109/62 123/69 Pulse Oximetry 100 Oxygen Delivery Fraction of Inspired Oxygen 01/26/25 20:00 01/26/25 20:00 01/26/25 20:00 Temperature Pulse Rate 71 78 Respiratory Rate 18 18 Blood Pressure Pulse Oximetry Oxygen Delivery Fraction of Inspired Oxygen 40 01/26/25 20:00 01/26/25 20:00 01/26/25 20:00 Temperature 99.5 F Pulse Rate 66 66 66 Respiratory Rate 18 18 Blood Pressure 144/77 H Pulse Oximetry 100 100 Oxygen Delivery Mechanical Ventilation Fraction of Inspired Oxygen 40 01/26/25 20:20 01/26/25 20:45 01/26/25 20:52 Temperature Pulse Rate 55 L 55 L 55 L Respiratory Rate 18 18 Blood Pressure Pulse Oximetry 100 Oxygen Delivery Mechanical Ventilation Fraction of Inspired Oxygen 55 01/26/25 21:00 01/26/25 22:00 01/26/25 22:00 Temperature Pulse Rate 56 L 70 64 Respiratory Rate 18 20 Blood Pressure 113/61 159/76 H Pulse Oximetry 99 100 Oxygen Delivery Fraction of Inspired Oxygen 01/26/25 22:00 01/26/25 22:00 01/26/25 22:00 Temperature Pulse Rate 70 70 70 Respiratory Rate 20 20 Blood Pressure 159/76 H Pulse Oximetry Oxygen Delivery Fraction of Inspired Oxygen 01/26/25 22:49 01/26/25 23:00 01/26/25 23:49 Temperature 99.4 F Pulse Rate 63 57 L 58 L Respiratory Rate 18 18 Blood Pressure 115/68 Pulse Oximetry 100 99 100 Oxygen Delivery Mechanical Ventilation Mechanical Ventilation Fraction of Inspired Oxygen 45 40 01/27/25 00:00 01/27/25 00:00 01/27/25 00:00 Temperature 99.4 F Pulse Rate 55 L 56 L Respiratory Rate 18 Blood Pressure 122/80 Pulse Oximetry 100 Oxygen Delivery Fraction of Inspired Oxygen 40 01/27/25 01:07 01/27/25 01:30 01/27/25 02:00 Temperature Pulse Rate 78 66 56 L Respiratory Rate 25 H 18 Blood Pressure 121/67 110/65 Pulse Oximetry 98 Oxygen Delivery Fraction of Inspired Oxygen 01/27/25 02:00 01/27/25 02:00 01/27/25 02:00 Temperature Pulse Rate 56 L 56 L 56 L Respiratory Rate 18 20 Blood Pressure 110/65 Pulse Oximetry Oxygen Delivery Fraction of Inspired Oxygen 01/27/25 02:00 01/27/25 02:00 01/27/25 02:13 Temperature 99.6 F Pulse Rate 56 L 56 L 54 L Respiratory Rate 18 18 Blood Pressure 110/65 Pulse Oximetry 98 Oxygen Delivery Fraction of Inspired Oxygen 01/27/25 02:13 01/27/25 02:22 01/27/25 03:00 Temperature Pulse Rate 55 L 67 73 Respiratory Rate 20 18 Blood Pressure 136/79 Pulse Oximetry 100 97 Oxygen Delivery Mechanical Ventilation Fraction of Inspired Oxygen 40 01/27/25 03:31 01/27/25 03:45 01/27/25 04:00 Temperature 99.5 F Pulse Rate 60 60 Respiratory Rate 18 18 Blood Pressure 115/70 Pulse Oximetry 99 99 Oxygen Delivery Mechanical Ventilation Fraction of Inspired Oxygen 40 40 01/27/25 04:00 01/27/25 04:00 01/27/25 04:00 Temperature Pulse Rate 60 60 60 Respiratory Rate 18 Blood Pressure 115/70 Pulse Oximetry Oxygen Delivery Fraction of Inspired Oxygen 01/27/25 04:00 01/27/25 05:00 01/27/25 05:05 Temperature 99.6 F Pulse Rate 60 61 61 Respiratory Rate 20 18 Blood Pressure 134/74 Pulse Oximetry 99 98 Oxygen Delivery Mechanical Ventilation Fraction of Inspired Oxygen 40 01/27/25 06:00 01/27/25 06:00 01/27/25 06:00 Temperature Pulse Rate 55 L 55 L 55 L Respiratory Rate 18 18 Blood Pressure 121/66 Pulse Oximetry Oxygen Delivery Fraction of Inspired Oxygen 01/27/25 06:00 01/27/25 06:00 01/27/25 07:00 Temperature 99.3 F 99.2 F Pulse Rate 55 L 55 L 51 L Respiratory Rate 18 18 Blood Pressure 121/66 107/62 Pulse Oximetry 100 100 Oxygen Delivery Fraction of Inspired Oxygen 01/27/25 07:48 01/27/25 07:48 01/27/25 07:56 Temperature Pulse Rate 66 66 75 Respiratory Rate 20 20 Blood Pressure Pulse Oximetry 100 Oxygen Delivery Mechanical Ventilation Fraction of Inspired Oxygen 40 01/27/25 08:00 01/27/25 08:00 01/27/25 08:00 Temperature 99.4 F Pulse Rate 66 71 Respiratory Rate 18 Blood Pressure 195/92 H Pulse Oximetry 100 100 Oxygen Delivery Mechanical Ventilation Fraction of Inspired Oxygen 01/27/25 08:00 01/27/25 08:00 01/27/25 08:15 Temperature Pulse Rate 72 82 Respiratory Rate 16 Blood Pressure 195/92 H Pulse Oximetry Oxygen Delivery Fraction of Inspired Oxygen 40 01/27/25 08:15 01/27/25 09:00 01/27/25 10:00 Temperature 99.3 F 99.3 F Pulse Rate 73 71 54 L Respiratory Rate 16 17 Blood Pressure 116/65 120/64 Pulse Oximetry 100 98 Oxygen Delivery Fraction of Inspired Oxygen 01/27/25 10:00 01/27/25 10:00 01/27/25 10:00 Temperature Pulse Rate 55 L 55 L 55 L Respiratory Rate 18 18 Blood Pressure 120/64 Pulse Oximetry Oxygen Delivery Fraction of Inspired Oxygen 01/27/25 10:00 01/27/25 11:00 Temperature 99.3 F Pulse Rate 55 L 55 L Respiratory Rate 18 Blood Pressure 120/64 Pulse Oximetry 97 Oxygen Delivery Fraction of Inspired Oxygen Intake/Output Intake/Output: Intake & Output 12/02/25 12/03/25 12/04/25 12/05/25 23:59 23:59 23:59 23:59 Intake Total 4480.4 2237.0 3351.9 1605.4 Output Total 1635 757 425 525 Balance 2845.4 1480.0 2926.9 1080.4 Meds/Results Medications: Active Medications Generic Name Dose Route Start Last Admin Trade Name Freq PRN Reason Stop Dose Admin Albuterol/Ipratropium 3 ml 01/24/25 02:00 01/27/25 07:48 Ipratropium 0.5 Mg/Albuterol Sulfate 2.5 Mg (Base) Ampul.Neb 3 Ml INHALATION 3 ml Q6HRT JOCELYNE Administration Aspirin 81 mg 01/24/25 12:00 01/27/25 08:26 Aspirin 81 Mg Enteric Tablet PO 81 mg QAM JOCELYNE Administration Atorvastatin Calcium 80 mg 01/24/25 21:00 01/26/25 21:35 Atorvastatin 40 Mg Tablet PO 80 mg QHS JOCELYNE Administration Carvedilol 3.125 mg 01/24/25 21:00 Carvedilol 3.125 Mg Tablet PO On Hold: 01/24/25 21:00 Q12HR JOCELYNE Empagliflozin 10 mg 01/27/25 09:00 01/27/25 08:26 Empagliflozin 10 Mg Tablet PO 10 mg DAILY JOCELYNE Administration Heparin Sodium (Porcine) 4,000 units 01/23/25 17:10 01/26/25 05:41 Heparin Sodium 5,000 Units/Ml Vial IV PUSH 4,000 units PRN PRN Administration aPTT less than 55 seconds Heparin Sodium (Porcine) 4,000 units 01/23/25 17:10 Heparin Sodium 5,000 Units/Ml Vial IV PUSH PRN PRN aPTT 55 - 70 seconds Hydralazine HCl 10 mg 01/24/25 11:31 01/24/25 14:05 Hydralazine Hcl 20 Mg/Ml Vial IV PUSH 10 mg Q4H PRN Administration Blood Pressure - High Heparin Sodium/Dextrose 25,000 units in 250 mls @ 9 mls/hr 01/23/25 17:10 01/27/25 06:00 Heparin Sodium/D5w 100 Units/Ml IV CONT 900 units/hr .Q24H JOCELYNE 9 mls/hr Protocol Titration 900 UNITS/HR Fentanyl Citrate 2,500 mcg in 250 mls @ 0 mls/hr 01/23/25 21:15 01/27/25 10:00 Fentanyl 2,500 Mcg/Ns 250 Ml IV CONT 0 mcg/hr .Q0M JOCELYNE 0 mls/hr Protocol Titration Piperacillin Sod/Tazobactam 50 mls @ 100 mls/hr 01/23/25 22:00 01/27/25 09:26 Sod 3.375 gm/ Sodium Chloride IVPB Infused Q6H JOCELYNE Infusion Midazolam HCl 100 mg in 100 mls @ 0 mls/hr 01/24/25 12:20 01/27/25 10:00 Versed 100 Mg/Ns 100 Ml IV CONT 0 mg/hr .Q0M JOCELYNE 0 mls/hr Protocol Titration Lidocaine HCl/Dextrose 2 gm in 500 mls @ 15 mls/hr 01/24/25 13:30 01/27/25 10:00 Lidocaine In D5w 4 Mg/Ml IV CONT 1 mg/min .Q24H JOCELYNE 15 mls/hr 1 MG/MIN Infusion Multi-Ingred Cream/Lotion/Oil/Oint 1 applic 01/24/25 09:00 01/27/25 08:27 Mineral Oil/White Petrolatum Ointment EACH EYE 1 applic Q12HR JOCELYNE Administration Pantoprazole Sodium 40 mg 01/24/25 09:00 01/27/25 08:27 Pantoprazole Sodium Iv 40 Mg Vial IV PUSH 40 mg DAILY JOCELYNE Administration Polyethylene Glycol 17 gm 01/27/25 10:14 Polyethylene Glycol 3350 17 Gm Powd.Pack PO QAM PRN Constipation Senna/Docusate Sodium 1 tab 01/27/25 21:00 Senna/Docusate Sodium Tablet PO HS JOCELYNE Sodium Chloride 10 ml 01/24/25 06:00 01/27/25 04:49 Central Line Flush IV PUSH 10 ml Q8HR JOCELYNE Administration Sodium Chloride 20 ml 01/23/25 22:48 Central Line Flush IV PUSH PRN PRN after blood draws Radiology Results: ITS Impressions Head CT 01/23/25 19:11 IMPRESSION: No acute intracranial hemorrhage or extra axial fluid collections. Bilateral mastoiditis. All CT scans at this facility are performed using low dose modulation techniques as appropriate to perform exam including the following: automated exposure control; use of iterative reconstruction technique; adjustment of the mA and/or kV according to patient size (this includes techniques or standardized protocols for targeted exams where dose is matched to indication/reason for exam). Chest/Abdomen/Pelvis CT 01/23/25 19:16 IMPRESSION: Bilateral lower lobe consolidation may represent pneumonia. No acute abdominal or pelvic findings. All CT scans at this facility are performed using low dose modulation techniques as appropriate to perform exam including the following: automated exposure control; use of iterative reconstruction technique; adjustment of the mA and/or kV according to patient size (this includes techniques or standardized protocols for targeted exams where dose is matched to indication/reason for exam). Venous Doppler Study 01/24/25 11:45 IMPRESSION: 1. No DVT either leg. Ankle Brachial Index 01/24/25 11:52 IMPRESSION: 1. Artery pressures and the pressures at the right and left brachial, posterior tibial and dorsalis pedis arteries were unable to be obtained likely due to markedly increased pressures with right and left great toe pressures of 212 and 214 mmHg respectively. Chest X-Ray 01/27/25 07:16 IMPRESSION: 1. Proximal side-port of the nasogastric tube in the distal esophagus. Recommend advancement by 6 cm. 2. Small bilateral pleural effusions with associated atelectasis, mild pulmonary edema and/or pneumonia in the bilateral lower lung zones. Abdomen X-Ray 01/27/25 10:32 Impression: 1. No acute abnormality. Labs Labs: Laboratory Results - last 24 hr 01/26/25 01/26/25 01/26/25 12:59 18:10 18:20 WBC RBC Hgb Hct MCV MCH MCHC RDW Plt Count MPV Immature Gran % (Auto) Neut % (Auto) Lymph % (Auto) [place] % (Auto) Eos % (Auto) Baso % (Auto) Lymph # (Auto) [place] # (Auto) Eos # (Auto) Baso # (Auto) Abs Immat Gran (auto) Absolute Neuts (auto) Absolute Nucleated RBC Nucleated RBC % APTT 112.5 H Puncture Site ABG pH ABG pCO2 ABG pO2 ABG PO2/FiO2 Ratio ABG HCO3 ABG O2 Saturation ABG O2 Content ABG Base Excess A-a Gradient Oxyhemoglobin Carboxyhemoglobin Methemoglobin Reduced Hemoglobin Total Hemoglobin O2 Delivery Device O2 Liters/Min Minute Volume Vent Rate Vent Mode FiO2 Tidal Volume PEEP Peak Inspir Pressure Pressure Support Sodium Potassium Chloride Carbon Dioxide Anion Gap BUN Creatinine Estim Creat Clear Calc Estimated GFR Glucose POC Capillary Glucose 114 H 130 H Lactic Acid Calcium Phosphorus Magnesium Total Bilirubin AST ALT Alkaline Phosphatase Total Protein Albumin 01/26/25 01/27/25 01/27/25 23:00 00:17 05:18 WBC RBC Hgb Hct MCV MCH MCHC RDW Plt Count MPV Immature Gran % (Auto) Neut % (Auto) Lymph % (Auto) [place] % (Auto) Eos % (Auto) Baso % (Auto) Lymph # (Auto) [place] # (Auto) Eos # (Auto) Baso # (Auto) Abs Immat Gran (auto) Absolute Neuts (auto) Absolute Nucleated RBC Nucleated RBC % APTT 88.6 H Puncture Site Right radial ABG pH 7.431 ABG pCO2 37.5 ABG pO2 91.8 ABG PO2/FiO2 Ratio 2.30 ABG HCO3 24.4 ABG O2 Saturation 97.3 ABG O2 Content 17.7 ABG Base Excess 0.3 A-a Gradient 150.3 Oxyhemoglobin 96.2 Carboxyhemoglobin 0.9 Methemoglobin 0.1 Reduced Hemoglobin 2.8 Total Hemoglobin 13.0 O2 Delivery Device Ventilator O2 Liters/Min Not Reportable Minute Volume Not Reportable Vent Rate 18 Vent Mode Cmv FiO2 40 Tidal Volume 420 PEEP 8 Peak Inspir Pressure Not Reportable Pressure Support Not Reportable Sodium Potassium Chloride Carbon Dioxide Anion Gap BUN Creatinine Estim Creat Clear Calc Estimated GFR Glucose POC Capillary Glucose 113 H Lactic Acid Calcium Phosphorus Magnesium Total Bilirubin AST ALT Alkaline Phosphatase Total Protein Albumin 01/27/25 01/27/25 05:36 11:38 WBC 10.4 H RBC 3.73 L Hgb 12.4 L Hct 37.5 L MCV 100.5 H MCH 33.2 MCHC 33.1 RDW 13.7 Plt Count 203 MPV 9.8 Immature Gran % (Auto) 0.6 H Neut % (Auto) 68.3 Lymph % (Auto) 19.9 [place] % (Auto) 10.7 H Eos % (Auto) 0.2 Baso % (Auto) 0.3 Lymph # (Auto) 2.08 [place] # (Auto) 1.1 H Eos # (Auto) 0.0 Baso # (Auto) 0.0 Abs Immat Gran (auto) 0.06 H Absolute Neuts (auto) 7.1 H Absolute Nucleated RBC 0.000 Nucleated RBC % 0.0 APTT 80.6 H Puncture Site ABG pH ABG pCO2 ABG pO2 ABG PO2/FiO2 Ratio ABG HCO3 ABG O2 Saturation ABG O2 Content ABG Base Excess A-a Gradient Oxyhemoglobin Carboxyhemoglobin Methemoglobin Reduced Hemoglobin Total Hemoglobin O2 Delivery Device O2 Liters/Min Minute Volume Vent Rate Vent Mode FiO2 Tidal Volume PEEP Peak Inspir Pressure Pressure Support Sodium 133 L Potassium 3.7 Chloride 103 Carbon Dioxide 27 Anion Gap 3 L BUN 15 Creatinine 1.35 H Estim Creat Clear Calc 62 Estimated GFR 51 L Glucose 123 H POC Capillary Glucose 116 H Lactic Acid 1.3 Calcium 8.2 L Phosphorus 3.3 Magnesium 1.5 L Total Bilirubin 1.0 AST 41 ALT 30 Alkaline Phosphatase 58 Total Protein 5.6 L Albumin 2.9 L Quality VTE Prophylaxis VTE prophylaxis: pharmacologic ordered
--- NOTE | 2025-01-27 13:01 | PCNFU ---
Nutrition Follow-Up Complete: Suboptimal Energy Intake as related to mechanical ventilation as evidenced by NPO.. Meet estimated nutritional needs. - Goal is being met with tube feeding. Continue current goal Goal: Pt current nutrition is Vital 1.2 @ 65 ml/h with flushes 30 ml q 4 h. Nutrition recommendation: No new recommendations. Continue current nutrition care plan and orders. Agree with orders Last recorded weight is 148.2 kg. Bowel Motility:No Bms are charted. Bowel regimen started today Labs Reviewed: Hgb 12.4, hct 37.5, Na 133, K+ 2.9, Cre 1.35, Glu 123 Meds Noted: LR, protonix, miralax, senna, heparin Skin: No skin issues Additional Notes: Tube feeding continues. No sedation. MV 7.0. Cardiac cath 01/26. May transfer depending on improvement. Continue current nutrition care plan and orders. Agree with orders Will monitor weight, labs, skin, diet orders, meds every Thursday and Thursday.
[2025-01-27] MEDS: HEPARIN SOD/D5W 100 UNITS/ML 25,000 UNITS/250 ML BAG 9 UNITS IV CONT (14:58)
--- NOTE | 2025-01-27 16:56 | WPDINFPN2 ---
Progress Note: A&P Assessment and Plan (1) Pneumonia: Code(s): J18.9 - Pneumonia, unspecified organism Status: Acute Assessment and Plan: ASSESSMENT: 1. pneumonia--CAP/aspiration?; MRSA nares neg; sputum cx nl micky 2. Vfib cardiac arrest 3. acute respiratory failure; s/p intubation 4. Afib 5. CAD 6. HTN, HL 7. morbid obesity 8. right wrist fracture with ecchymoses; after fall, no signs of current infection RECOMMENDATIONS: -continue zosyn -legionella and strep ags pending -blood cxs NGTD d/w pharmacy staff, nursing staff Pt was seen via video telehealth consultation with the assistance of staff. Chart, data and patient info reviewed. Patient was located at [facility] while I was in my [place] office. Subjective Date/time seen: 01/27/25 16:56 Interval history: low grade temps WBC count down Exam Narrative: on heparin and lidocaine drips sedation held no pressors +ETT +OGT RRR vent with FiO2=40 and PEEP=8 abd a little firm, NT right hand dressed; Right femoral central line +lira--good u/o Objective Data Vital Signs Vital Signs: Vital Signs - 24 hr 01/26/25 17:00 01/26/25 17:40 01/26/25 18:00 Temperature 99.1 F 99.2 F 99.3 F Pulse Rate 56 L 84 79 Respiratory Rate 18 21 H 22 H Blood Pressure 114/63 167/77 H 179/85 H Pulse Oximetry 100 100 100 Oxygen Delivery Fraction of Inspired Oxygen 01/26/25 18:00 01/26/25 18:00 01/26/25 18:00 Temperature Pulse Rate 79 79 79 Respiratory Rate 22 H 22 H Blood Pressure 179/85 H Pulse Oximetry Oxygen Delivery Fraction of Inspired Oxygen 01/26/25 18:00 01/26/25 19:00 01/26/25 19:20 Temperature 98.9 F Pulse Rate 79 67 80 Respiratory Rate 18 21 H Blood Pressure 109/62 Pulse Oximetry 100 Oxygen Delivery Fraction of Inspired Oxygen 01/26/25 20:00 01/26/25 20:00 01/26/25 20:00 Temperature Pulse Rate 73 71 78 Respiratory Rate 18 18 Blood Pressure 123/69 Pulse Oximetry Oxygen Delivery Fraction of Inspired Oxygen 01/26/25 20:00 01/26/25 20:00 01/26/25 20:00 Temperature 99.5 F Pulse Rate 66 66 Respiratory Rate 18 18 Blood Pressure 144/77 H Pulse Oximetry 100 100 Oxygen Delivery Mechanical Ventilation Fraction of Inspired Oxygen 40 40 01/26/25 20:00 01/26/25 20:20 01/26/25 20:45 Temperature Pulse Rate 66 55 L 55 L Respiratory Rate 18 Blood Pressure Pulse Oximetry 100 Oxygen Delivery Mechanical Ventilation Fraction of Inspired Oxygen 55 01/26/25 20:52 01/26/25 21:00 01/26/25 22:00 Temperature Pulse Rate 55 L 56 L 70 Respiratory Rate 18 18 20 Blood Pressure 113/61 159/76 H Pulse Oximetry 99 100 Oxygen Delivery Fraction of Inspired Oxygen 01/26/25 22:00 01/26/25 22:00 01/26/25 22:00 Temperature Pulse Rate 64 70 70 Respiratory Rate 20 Blood Pressure 159/76 H Pulse Oximetry Oxygen Delivery Fraction of Inspired Oxygen 01/26/25 22:00 01/26/25 22:49 01/26/25 23:00 Temperature 99.4 F Pulse Rate 70 63 57 L Respiratory Rate 20 18 Blood Pressure 115/68 Pulse Oximetry 100 99 Oxygen Delivery Mechanical Ventilation Fraction of Inspired Oxygen 45 01/26/25 23:49 01/27/25 00:00 01/27/25 00:00 Temperature 99.4 F Pulse Rate 58 L 55 L Respiratory Rate 18 18 Blood Pressure 122/80 Pulse Oximetry 100 100 Oxygen Delivery Mechanical Ventilation Fraction of Inspired Oxygen 40 40 01/27/25 00:00 01/27/25 01:07 01/27/25 01:30 Temperature Pulse Rate 56 L 78 66 Respiratory Rate 25 H 18 Blood Pressure 121/67 Pulse Oximetry 98 Oxygen Delivery Fraction of Inspired Oxygen 01/27/25 02:00 01/27/25 02:00 01/27/25 02:00 Temperature Pulse Rate 56 L 56 L 56 L Respiratory Rate 18 Blood Pressure 110/65 110/65 Pulse Oximetry Oxygen Delivery Fraction of Inspired Oxygen 01/27/25 02:00 01/27/25 02:00 01/27/25 02:00 Temperature 99.6 F Pulse Rate 56 L 56 L 56 L Respiratory Rate 20 18 Blood Pressure 110/65 Pulse Oximetry 98 Oxygen Delivery Fraction of Inspired Oxygen 01/27/25 02:13 01/27/25 02:13 01/27/25 02:22 Temperature Pulse Rate 54 L 55 L 67 Respiratory Rate 18 20 Blood Pressure Pulse Oximetry 100 Oxygen Delivery Mechanical Ventilation Fraction of Inspired Oxygen 40 01/27/25 03:00 01/27/25 03:31 01/27/25 03:45 Temperature Pulse Rate 73 60 Respiratory Rate 18 18 Blood Pressure 136/79 Pulse Oximetry 97 99 Oxygen Delivery Mechanical Ventilation Fraction of Inspired Oxygen 40 40 01/27/25 04:00 01/27/25 04:00 01/27/25 04:00 Temperature 99.5 F Pulse Rate 60 60 60 Respiratory Rate 18 18 Blood Pressure 115/70 Pulse Oximetry 99 Oxygen Delivery Fraction of Inspired Oxygen 01/27/25 04:00 01/27/25 04:00 01/27/25 05:00 Temperature 99.6 F Pulse Rate 60 60 61 Respiratory Rate 20 18 Blood Pressure 115/70 134/74 Pulse Oximetry 99 Oxygen Delivery Fraction of Inspired Oxygen 01/27/25 05:05 01/27/25 06:00 01/27/25 06:00 Temperature Pulse Rate 61 55 L 55 L Respiratory Rate 18 Blood Pressure 121/66 Pulse Oximetry 98 Oxygen Delivery Mechanical Ventilation Fraction of Inspired Oxygen 40 01/27/25 06:00 01/27/25 06:00 01/27/25 06:00 Temperature 99.3 F Pulse Rate 55 L 55 L 55 L Respiratory Rate 18 18 Blood Pressure 121/66 Pulse Oximetry 100 Oxygen Delivery Fraction of Inspired Oxygen 01/27/25 07:00 01/27/25 07:48 01/27/25 07:48 Temperature 99.2 F Pulse Rate 51 L 66 66 Respiratory Rate 18 20 Blood Pressure 107/62 Pulse Oximetry 100 100 Oxygen Delivery Mechanical Ventilation Fraction of Inspired Oxygen 40 01/27/25 07:56 01/27/25 08:00 01/27/25 08:00 Temperature 99.4 F Pulse Rate 75 66 Respiratory Rate 20 18 Blood Pressure 195/92 H Pulse Oximetry 100 100 Oxygen Delivery Mechanical Ventilation Fraction of Inspired Oxygen 01/27/25 08:00 01/27/25 08:00 01/27/25 08:00 Temperature Pulse Rate 71 72 Respiratory Rate Blood Pressure 195/92 H Pulse Oximetry Oxygen Delivery Fraction of Inspired Oxygen 40 01/27/25 08:15 01/27/25 08:15 01/27/25 09:00 Temperature 99.3 F Pulse Rate 82 73 71 Respiratory Rate 16 16 17 Blood Pressure 116/65 Pulse Oximetry 100 Oxygen Delivery Fraction of Inspired Oxygen 01/27/25 10:00 01/27/25 10:00 01/27/25 10:00 Temperature 99.3 F Pulse Rate 54 L 55 L 55 L Respiratory Rate 18 Blood Pressure 120/64 120/64 Pulse Oximetry 98 Oxygen Delivery Fraction of Inspired Oxygen 01/27/25 10:00 01/27/25 10:00 01/27/25 10:31 Temperature Pulse Rate 55 L 55 L 70 Respiratory Rate 18 Blood Pressure Pulse Oximetry 100 Oxygen Delivery Mechanical Ventilation Fraction of Inspired Oxygen 40 01/27/25 11:00 01/27/25 12:00 01/27/25 12:00 Temperature 99.3 F 99.3 F Pulse Rate 55 L 76 67 Respiratory Rate 18 16 18 Blood Pressure 120/64 175/85 H Pulse Oximetry 97 100 Oxygen Delivery Fraction of Inspired Oxygen 01/27/25 12:00 01/27/25 12:00 01/27/25 12:00 Temperature Pulse Rate 66 Respiratory Rate Blood Pressure Pulse Oximetry 100 Oxygen Delivery Mechanical Ventilation Fraction of Inspired Oxygen 40 01/27/25 12:00 01/27/25 12:00 01/27/25 13:00 Temperature 99.6 F Pulse Rate 67 67 65 Respiratory Rate 18 18 Blood Pressure 175/85 H 175/101 H Pulse Oximetry 97 Oxygen Delivery Fraction of Inspired Oxygen 01/27/25 14:00 01/27/25 14:00 01/27/25 14:00 Temperature 99.8 F H Pulse Rate 64 64 65 Respiratory Rate 18 18 Blood Pressure 164/74 H Pulse Oximetry 97 Oxygen Delivery Fraction of Inspired Oxygen 01/27/25 14:00 01/27/25 14:00 01/27/25 14:13 Temperature Pulse Rate 65 65 64 Respiratory Rate 18 Blood Pressure 164/74 H Pulse Oximetry 97 Oxygen Delivery Mechanical Ventilation Fraction of Inspired Oxygen 40 01/27/25 14:13 01/27/25 14:26 01/27/25 15:00 Temperature 99.9 F H Pulse Rate 64 64 60 Respiratory Rate 18 18 Blood Pressure 116/67 Pulse Oximetry 98 Oxygen Delivery Fraction of Inspired Oxygen 01/27/25 16:00 01/27/25 16:00 01/27/25 16:00 Temperature Pulse Rate 67 67 67 Respiratory Rate 18 18 Blood Pressure 154/79 H Pulse Oximetry Oxygen Delivery Fraction of Inspired Oxygen 01/27/25 16:00 01/27/25 16:00 01/27/25 16:00 Temperature 100.1 F H Pulse Rate 67 68 Respiratory Rate 18 Blood Pressure 154/79 H Pulse Oximetry 98 Oxygen Delivery Fraction of Inspired Oxygen 40 Intake/Output Intake/Output: Intake & Output 01/24/25 01/25/25 01/26/25 01/27/25 23:59 23:59 23:59 23:59 Intake Total 4480.4 2237.0 3351.9 1828.3 Output Total 1635 376 939 5220 Balance 2845.4 1480.0 2926.9 -396.7 Meds/Results Medications: Active Medications Generic Name Dose Route Start Last Admin Trade Name Freq PRN Reason Stop Dose Admin Albuterol/Ipratropium 3 ml 01/24/25 02:00 01/27/25 14:13 Ipratropium 0.5 Mg/Albuterol Sulfate 2.5 Mg (Base) Ampul.Neb 3 Ml INHALATION 3 ml Q6HRT JOCELYNE Administration Amlodipine Besylate 10 mg 01/28/25 09:00 Amlodipine Besylate 10 Mg Tablet PO DAILY [facility] Aspirin 81 mg 01/24/25 12:00 01/27/25 08:26 Aspirin 81 Mg Enteric Tablet PO 81 mg QAM JOCELYNE Administration Atorvastatin Calcium 80 mg 01/24/25 21:00 01/26/25 21:35 Atorvastatin 40 Mg Tablet PO 80 mg QHS JOCELYNE Administration Carvedilol 3.125 mg 01/24/25 21:00 Carvedilol 3.125 Mg Tablet PO On Hold: 01/24/25 21:00 Q12HR JOCELYNE Empagliflozin 10 mg 01/27/25 09:00 01/27/25 08:26 Empagliflozin 10 Mg Tablet PO 10 mg DAILY JOCELYNE Administration Heparin Sodium (Porcine) 4,000 units 01/23/25 17:10 01/26/25 05:41 Heparin Sodium 5,000 Units/Ml Vial IV PUSH 4,000 units PRN PRN Administration aPTT less than 55 seconds Heparin Sodium (Porcine) 4,000 units 01/23/25 17:10 Heparin Sodium 5,000 Units/Ml Vial IV PUSH PRN PRN aPTT 55 - 70 seconds Hydralazine HCl 10 mg 01/24/25 11:31 01/24/25 14:05 Hydralazine Hcl 20 Mg/Ml Vial IV PUSH 10 mg Q4H PRN Administration Blood Pressure - High Heparin Sodium/Dextrose 25,000 units in 250 mls @ 9 mls/hr 01/23/25 17:10 01/27/25 14:58 Heparin Sodium/D5w 100 Units/Ml IV CONT 900 units/hr .Q24H JOCELYNE 9 mls/hr Protocol Administration 900 UNITS/HR Fentanyl Citrate 2,500 mcg in 250 mls @ 0 mls/hr 01/23/25 21:15 01/27/25 16:00 Fentanyl 2,500 Mcg/Ns 250 Ml IV CONT 0 mcg/hr .Q0M JOCELYNE 0 mls/hr Protocol Titration Piperacillin Sod/Tazobactam 50 mls @ 100 mls/hr 01/23/25 22:00 01/27/25 15:48 Sod 3.375 gm/ Sodium Chloride IVPB Infused Q6H JOCELYNE Infusion Midazolam HCl 100 mg in 100 mls @ 0 mls/hr 01/24/25 12:20 01/27/25 16:00 Versed 100 Mg/Ns 100 Ml IV CONT 0 mg/hr .Q0M JOCELYNE 0 mls/hr Protocol Titration Lidocaine HCl/Dextrose 2 gm in 500 mls @ 15 mls/hr 01/24/25 13:30 01/27/25 16:00 Lidocaine In D5w 4 Mg/Ml IV CONT 1 mg/min .Q24H JOCELYNE 15 mls/hr 1 MG/MIN Infusion Multi-Ingred Cream/Lotion/Oil/Oint 1 applic 01/24/25 09:00 01/27/25 08:27 Mineral Oil/White Petrolatum Ointment EACH EYE 1 applic Q12HR JOCELYNE Administration Pantoprazole Sodium 40 mg 01/24/25 09:00 01/27/25 08:27 Pantoprazole Sodium Iv 40 Mg Vial IV PUSH 40 mg DAILY JOCELYNE Administration Polyethylene Glycol 17 gm 01/27/25 10:14 Polyethylene Glycol 3350 17 Gm Powd.Pack PO QAM PRN Constipation Senna/Docusate Sodium 1 tab 01/27/25 21:00 Senna/Docusate Sodium Tablet PO HS JOCELYNE Sodium Chloride 10 ml 01/24/25 06:00 01/27/25 13:27 Central Line Flush IV PUSH 10 ml Q8HR JOCELYNE Administration Sodium Chloride 20 ml 01/23/25 22:48 Central Line Flush IV PUSH PRN PRN after blood draws Radiology Results: ITS Impressions Head CT 01/23/25 19:11 IMPRESSION: No acute intracranial hemorrhage or extra axial fluid collections. Bilateral mastoiditis. All CT scans at this facility are performed using low dose modulation techniques as appropriate to perform exam including the following: automated exposure control; use of iterative reconstruction technique; adjustment of the mA and/or kV according to patient size (this includes techniques or standardized protocols for targeted exams where dose is matched to indication/reason for exam). Chest/Abdomen/Pelvis CT 01/23/25 19:16 IMPRESSION: Bilateral lower lobe consolidation may represent pneumonia. No acute abdominal or pelvic findings. All CT scans at this facility are performed using low dose modulation techniques as appropriate to perform exam including the following: automated exposure control; use of iterative reconstruction technique; adjustment of the mA and/or kV according to patient size (this includes techniques or standardized protocols for targeted exams where dose is matched to indication/reason for exam). Venous Doppler Study 01/24/25 11:45 IMPRESSION: 1. No DVT either leg. Ankle Brachial Index 01/24/25 11:52 IMPRESSION: 1. Artery pressures and the pressures at the right and left brachial, posterior tibial and dorsalis pedis arteries were unable to be obtained likely due to markedly increased pressures with right and left great toe pressures of 212 and 214 mmHg respectively. Chest X-Ray 01/27/25 07:16 IMPRESSION: 1. Proximal side-port of the nasogastric tube in the distal esophagus. Recommend advancement by 6 cm. 2. Small bilateral pleural effusions with associated atelectasis, mild pulmonary edema and/or pneumonia in the bilateral lower lung zones. Abdomen X-Ray 01/27/25 10:32 Impression: 1. No acute abnormality. Labs Labs: Laboratory Results - last 24 hr 01/26/25 01/26/25 01/26/25 18:10 18:20 23:00 WBC RBC Hgb Hct MCV MCH MCHC RDW Plt Count MPV Immature Gran % (Auto) Neut % (Auto) Lymph % (Auto) [place] % (Auto) Eos % (Auto) Baso % (Auto) Lymph # (Auto) [place] # (Auto) Eos # (Auto) Baso # (Auto) Abs Immat Gran (auto) Absolute Neuts (auto) Absolute Nucleated RBC Nucleated RBC % APTT 112.5 H Puncture Site ABG pH ABG pCO2 ABG pO2 ABG PO2/FiO2 Ratio ABG HCO3 ABG O2 Saturation ABG O2 Content ABG Base Excess A-a Gradient Oxyhemoglobin Carboxyhemoglobin Methemoglobin Reduced Hemoglobin Total Hemoglobin O2 Delivery Device O2 Liters/Min Minute Volume Vent Rate Vent Mode FiO2 Tidal Volume PEEP Peak Inspir Pressure Pressure Support Sodium Potassium Chloride Carbon Dioxide Anion Gap BUN Creatinine Estim Creat Clear Calc Estimated GFR Glucose POC Capillary Glucose 130 H 113 H Lactic Acid Calcium Phosphorus Magnesium Total Bilirubin AST ALT Alkaline Phosphatase Total Protein Albumin 01/27/25 01/27/25 01/27/25 00:17 05:18 05:36 WBC 10.4 H RBC 3.73 L Hgb 12.4 L Hct 37.5 L MCV 100.5 H MCH 33.2 MCHC 33.1 RDW 13.7 Plt Count 203 MPV 9.8 Immature Gran % (Auto) 0.6 H Neut % (Auto) 68.3 Lymph % (Auto) 19.9 [place] % (Auto) 10.7 H Eos % (Auto) 0.2 Baso % (Auto) 0.3 Lymph # (Auto) 2.08 [place] # (Auto) 1.1 H Eos # (Auto) 0.0 Baso # (Auto) 0.0 Abs Immat Gran (auto) 0.06 H Absolute Neuts (auto) 7.1 H Absolute Nucleated RBC 0.000 Nucleated RBC % 0.0 APTT 88.6 H 80.6 H Puncture Site Right radial ABG pH 7.431 ABG pCO2 37.5 ABG pO2 91.8 ABG PO2/FiO2 Ratio 2.30 ABG HCO3 24.4 ABG O2 Saturation 97.3 ABG O2 Content 17.7 ABG Base Excess 0.3 A-a Gradient 150.3 Oxyhemoglobin 96.2 Carboxyhemoglobin 0.9 Methemoglobin 0.1 Reduced Hemoglobin 2.8 Total Hemoglobin 13.0 O2 Delivery Device Ventilator O2 Liters/Min Not Reportable Minute Volume Not Reportable Vent Rate 18 Vent Mode Cmv FiO2 40 Tidal Volume 420 PEEP 8 Peak Inspir Pressure Not Reportable Pressure Support Not Reportable Sodium 133 L Potassium 3.7 Chloride 103 Carbon Dioxide 27 Anion Gap 3 L BUN 15 Creatinine 1.35 H Estim Creat Clear Calc 62 Estimated GFR 51 L Glucose 123 H POC Capillary Glucose Lactic Acid 1.3 Calcium 8.2 L Phosphorus 3.3 Magnesium 1.5 L Total Bilirubin 1.0 AST 41 ALT 30 Alkaline Phosphatase 58 Total Protein 5.6 L Albumin 2.9 L 01/27/25 11:38 WBC RBC Hgb Hct MCV MCH MCHC RDW Plt Count MPV Immature Gran % (Auto) Neut % (Auto) Lymph % (Auto) [place] % (Auto) Eos % (Auto) Baso % (Auto) Lymph # (Auto) [place] # (Auto) Eos # (Auto) Baso # (Auto) Abs Immat Gran (auto) Absolute Neuts (auto) Absolute Nucleated RBC Nucleated RBC % APTT Puncture Site ABG pH ABG pCO2 ABG pO2 ABG PO2/FiO2 Ratio ABG HCO3 ABG O2 Saturation ABG O2 Content ABG Base Excess A-a Gradient Oxyhemoglobin Carboxyhemoglobin Methemoglobin Reduced Hemoglobin Total Hemoglobin O2 Delivery Device O2 Liters/Min Minute Volume Vent Rate Vent Mode FiO2 Tidal Volume PEEP Peak Inspir Pressure Pressure Support Sodium Potassium Chloride Carbon Dioxide Anion Gap BUN Creatinine Estim Creat Clear Calc Estimated GFR Glucose POC Capillary Glucose 116 H Lactic Acid Calcium Phosphorus Magnesium Total Bilirubin AST ALT Alkaline Phosphatase Total Protein Albumin
--- NOTE | 2025-01-27 19:42 | PC.NURSE ---
Updated Dr. Goodson regarding current blood pressure of 197/90 post Hydralazine. New orders obtained.
[2025-01-27] MEDS: SENNA/DOCUSATE SODIUM TABLET 1 TAB PO (20:32)
[2025-01-27] MEDS: ATORVASTATIN 40 MG TABLET 80 MG PO (20:32)
[2025-01-28] VITALS (55 sets, daily range): BP systolic 123–181; BP diastolic 56–149; PULSE 60–188; RESP 15–24; TEMP 37.6–38; O2SAT 95–99
[2025-01-28] MEDS: IPRATROPIUM 0.5 MG/ALBUTEROL SULFATE 2.5 MG (BASE) AMPUL.NEB 3 ML INHALATION ×4 (02:15→19:27)
[2025-01-28 04:27] LABS: Alveolar/Arterial O2 Gradient 189.4 mmHg; Carboxyhemoglobin 0.5 % THb (0-2.0); Fractional Inspired Oxygen 40 %; HCO3 ABG 26.3 mEq/l (22.0-26.0); Methemoglobin ABG 0.2 %THb (0-1.5); Oxygen Content ABG 18.6 %vol (16.0-22.0); Oxygen Saturation ABG 98.6 % (95.0-100.0); PCO2 ABG 39.1 mmHg (35.0-45.0); PO2 ABG 123.7 mmHg (80.0-100.0); PO2 FiO2 Ratio Arterial Blood 3.09 %; Reduced Hemoglobin 1.7 %THb (0-5.0)
[2025-01-28 04:28] LABS: Arterial Blood Gas Ventilator rate 18 /MIN; Modified Allen's Test Pass; Site Drawn LEFT RADIAL
[2025-01-28 04:29] LABS: Arterial Blood Gas Tidal Volume 420 ml
[2025-01-28] MEDS: METOPROLOL TARTRATE INJ 5 MG/5 ML VIAL IV PUSH (05:12)
--- NOTE | 2025-01-28 05:14 | PC.NURSE ---
Updated Dr. Goodson with patient being restless in bed, unable to follow commands and proceeding to go into SVT 150 to 190 rate. Order for Metoprolol IV pushx1 now and increase Lidocaine drip to 1.5mcg/min
[2025-01-28] MEDS: CENTRAL LINE FLUSH 10 ML IV PUSH ×3 (05:34→21:14)
[2025-01-28 05:38] LABS: Hematocrit 36.2 % (42.0-52.0); Hemoglobin 12.3 g/dL (14.0-18.0); Immature Granulocyte Percent A 0.5 % (0-0.5); Lymphocytes Absolute Auto 1.80 K/mm3 (0.9-3.2); Mean Corpuscular HGB Conc 34.0 g/dl (32-36); Mean Corpuscular Hemoglobin 33.9 pg (26-34); Mean Corpuscular Volume 99.7 fl (80-100); Nucleated Red Blood Cells Absolute Auto 0.000 K/mm3 (0.0-0.012); Nucleated Red Blood Cells Perc 0.0 % (0.0-0.2); Platelet Count Result 245 k/mm3 (150-375); Red Blood Count 3.63 M/mm3 (4.6-6.20); White Blood Count 13.6 K/mm3 (4.5-10.0)
[2025-01-28] MEDS: PIPERACILLIN/TAZOBACTAM SOD 3.375 GM in SODIUM CHLORIDE 0.9% IV 50 ML 100 ML IVPB ×4 (05:44→21:12)
[2025-01-28 05:50] LABS: Partial Thromboplastin Time 39.8 Seconds (22.3-36.8)
[2025-01-28 05:51] LABS: Alanine Aminotransferase 36 U/L (6-50); Albumin Level 3.3 g/dL (3.5-5.1); Alkaline Phosphatase 65 U/L (38-126); Anion Gap 6 mmol/L (4-12); Aspartate Amino Transferase 55 U/L (17-59); Bilirubin,Total 1.0 mg/dL (0.2-1.3); Blood Urea Nitrogen 15 mg/dL (9-20); Calcium 9.0 mg/dL (8.4-10.2); Carbon Dioxide 28 mmol/L (22-30); Chloride 102 mmol/L (98-107); Estimated CRCL calculation 62 ml/min; Estimated Glomerular Filt Rate 51; Glucose 117 mg/dL (65-110); Magnesium 1.7 mg/dL (1.6-2.3); Potassium 3.3 mmol/L (3.4-5.0); Sodium 136 mmol/L (137-145); Total Protein 6.3 g/dL (6.3-8.2)
--- NOTE | 2025-01-28 08:58 | WPDINTPN2 ---
Assessment and Plan Assessment and Plan (1) Acute respiratory failure: Code(s): J96.00 - Acute respiratory failure, unspecified whether with hypoxia or hypercapnia Status: Acute Assessment and Plan: Acute respiratory failure likely related to cardiac arrest. Also pulmonary edema, pneumonia as seen on CT chest -intubated on 01/23/2025 -currently on CMV mode of ventilation, peep of 5, 40% FiO2 -chest x-ray and ABGs reviewed -continue bronchodilator -off all sedation, will allow patient to wake up and evaluate neurological status, -once his neurological status improves and place him on SBT and evaluate for extubation -01/28: Tried patient on pressure support and ASV, patient was very dyssynchronous at extremely high tidal volumes for some breaths and extremely low tidal volumes for the on the so placed him back on CMV mode, will retry again later if he is more awake (2) Cardiac arrest with ventricular fibrillation: Code(s): I46.9 - Cardiac arrest, cause unspecified; I49.01 - Ventricular fibrillation Status: Acute Assessment and Plan: 01/23: Patient presented the ED with dizziness and nausea. While he was in the ER waiting room, went unresponsive, was in VFib arrest -status post VFib cardiac arrest, requiring defibrillation x1, epinephrine x1 and CPR before ROSC. 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 01/28: Patient went into SVT on early this morning with V-tach, converted to sinus rhythm with metoprolol 5 mg IV x1. Increased lidocaine to 1.5 mg/min. Discuss with cardiology will add metoprolol 25 mg p.o. q.12 hours (3) Mixed hyperlipidemia: Code(s): E78.2 - Mixed hyperlipidemia Status: Acute Assessment and Plan: Contain atorvastatin (4) Chronic atrial fibrillation: Code(s): I48.20 - Chronic atrial fibrillation, unspecified Status: Acute Assessment and Plan: Currently in ventricular bigeminy, will hold amiodarone infusion -hold Coreg -continue heparin infusion and lidocaine infusion per Cardiology Plan DVT prophylaxis: Heparin infusion Stress ulcer prophylaxis: Protonix Nutrition: Tolerating tube feeds Code Status: Full code Critical Care Time Spent: 33 minutes Will update family Due to a high probability of clinically significant, life threatening deterioration, the patient required my highest level of preparedness to intervene emergently and I personally spent this critical care time directly and personally managing the patient. This critical care time included obtaining a history; examining the patient; pulse oximetry; ordering and review of studies; arranging urgent treatment with development of a management plan; evaluation of patient's response to treatment; frequent reassessment; and discussions with other providers. It was exclusive of separately billable procedures and treating other patients and teaching time. Please see Assessment and Plan section and the rest of the note for further information on patient assessment and treatment This dictation may have been done utilizing a voice recognition system. Attempts have been made to correct errors. However, there may be uncorrected grammatical, spelling, and recognitions errors present. Subjective Date/time seen: 01/28/25 08:58 Interval history: Reason for consult: Cardiac arrest, ventricular fibrillation, respiratory failure post cardiac arrest, presented with dizziness along with nausea to the ER on 01/23/2025 01/27/2025: Patient seen and examined the ICU, remains intubated on CMV mode of ventilation, peep of 8, 40% FiO2. Patient has been off sedation since 01/27/2025 8:00 a.m. patient does open his eyes, not consistent with following commands. Eyes went into SVT and V tach, did not lose his pulse, again to normal sinus rhythm with metoprolol, increased lidocaine infusion to 1.5 mg/min. Low-grade fevers, WBC increased to 13.6 this morning. Creatinine is stable. Hemodynamically stable, not requiring any pressors. Urine output has been significant in response to diuretics yesterday. Tolerating tube feeds Review of Systems Review of Systems: ROS unobtainable: Yes unobtainable due to endotracheal tube, unobtainable due to medical condition and unobtainable due to mental status Exam Narrative: General: Intubated, not in any distress HEENT:? Pupils equal and reactive, sclera is clear, ETT in place Neck:? Supple Respiratory:? Coarse breath sounds bilaterally, decreased at bases, no wheeze Cardiac:? Sinus rhythm, rate controlled Abdomen:? Soft, nontender, nondistended, hypoactive bowel sounds Extremities:? Trace edema bilaterally, palpable pulses. Ruptured blisters noted on the right hand, edematous currently in a splint and Heber wrap Neuro:? Patient is intubated, OFF sedation, opens his eyes on a tracks, did move his left leg to commands on multiple occasions but does not follow commands with any other extremity Skin:? No lesions noted Psych:? Unable to assess at this time Objective Data Vital Signs Vital Signs: Vital Signs - 24 hr 01/27/25 09:00 01/27/25 10:00 01/27/25 10:00 Temperature 99.3 F 99.3 F Pulse Rate 71 54 L 55 L Respiratory Rate 17 18 Blood Pressure 116/65 120/64 Pulse Oximetry 100 98 Oxygen Delivery Fraction of Inspired Oxygen 01/27/25 10:00 01/27/25 10:00 01/27/25 10:00 Temperature Pulse Rate 55 L 55 L 55 L Respiratory Rate 18 Blood Pressure 120/64 Pulse Oximetry Oxygen Delivery Fraction of Inspired Oxygen 01/27/25 10:31 01/27/25 11:00 01/27/25 12:00 Temperature 99.3 F 99.3 F Pulse Rate 70 55 L 76 Respiratory Rate 18 16 Blood Pressure 120/64 175/85 H Pulse Oximetry 100 97 100 Oxygen Delivery Mechanical Ventilation Fraction of Inspired Oxygen 40 01/27/25 12:00 01/27/25 12:00 01/27/25 12:00 Temperature Pulse Rate 67 Respiratory Rate 18 Blood Pressure Pulse Oximetry 100 Oxygen Delivery Mechanical Ventilation Fraction of Inspired Oxygen 40 01/27/25 12:00 01/27/25 12:00 01/27/25 12:00 Temperature Pulse Rate 66 67 67 Respiratory Rate 18 Blood Pressure 175/85 H Pulse Oximetry Oxygen Delivery Fraction of Inspired Oxygen 01/27/25 13:00 01/27/25 14:00 01/27/25 14:00 Temperature 99.6 F 99.8 F H Pulse Rate 65 64 64 Respiratory Rate 18 18 Blood Pressure 175/101 H 164/74 H Pulse Oximetry 97 97 Oxygen Delivery Fraction of Inspired Oxygen 01/27/25 14:00 01/27/25 14:00 01/27/25 14:00 Temperature Pulse Rate 65 65 65 Respiratory Rate 18 18 Blood Pressure 164/74 H Pulse Oximetry Oxygen Delivery Fraction of Inspired Oxygen 01/27/25 14:13 01/27/25 14:13 01/27/25 14:26 Temperature Pulse Rate 64 64 64 Respiratory Rate 18 18 Blood Pressure Pulse Oximetry 97 Oxygen Delivery Mechanical Ventilation Fraction of Inspired Oxygen 40 01/27/25 15:00 01/27/25 16:00 01/27/25 16:00 Temperature 99.9 F H Pulse Rate 60 67 67 Respiratory Rate 18 Blood Pressure 116/67 154/79 H Pulse Oximetry 98 Oxygen Delivery Fraction of Inspired Oxygen 01/27/25 16:00 01/27/25 16:00 01/27/25 16:00 Temperature 100.1 F H Pulse Rate 67 67 Respiratory Rate 18 18 Blood Pressure 154/79 H Pulse Oximetry 98 Oxygen Delivery Fraction of Inspired Oxygen 40 01/27/25 16:00 01/27/25 16:00 01/27/25 16:54 Temperature Pulse Rate 68 60 Respiratory Rate Blood Pressure Pulse Oximetry 98 99 Oxygen Delivery Mechanical Ventilation Mechanical Ventilation Fraction of Inspired Oxygen 40 40 01/27/25 17:00 01/27/25 18:00 01/27/25 18:00 Temperature 100.1 F H 100.1 F H Pulse Rate 65 70 65 Respiratory Rate 19 15 Blood Pressure 174/84 H 195/88 H Pulse Oximetry 99 100 Oxygen Delivery Fraction of Inspired Oxygen 01/27/25 18:00 01/27/25 18:00 01/27/25 18:00 Temperature Pulse Rate 65 65 65 Respiratory Rate 19 19 Blood Pressure 169/85 H Pulse Oximetry Oxygen Delivery Fraction of Inspired Oxygen 01/27/25 19:00 01/27/25 19:49 01/27/25 19:50 Temperature 100.0 F H Pulse Rate 82 74 74 Respiratory Rate 20 19 19 Blood Pressure 206/87 H Pulse Oximetry 98 Oxygen Delivery Fraction of Inspired Oxygen 01/27/25 20:00 01/27/25 20:00 01/27/25 20:00 Temperature 99.9 F H Pulse Rate 82 80 Respiratory Rate 22 H 16 Blood Pressure 189/86 H Pulse Oximetry 99 99 Oxygen Delivery Mechanical Ventilation Fraction of Inspired Oxygen 40 40 01/27/25 20:00 01/27/25 20:00 01/27/25 20:18 Temperature Pulse Rate 76 75 80 Respiratory Rate 16 Blood Pressure 189/86 H Pulse Oximetry Oxygen Delivery Fraction of Inspired Oxygen 12/05/25 20:19 01/27/25 20:37 01/27/25 20:50 Temperature Pulse Rate 75 78 80 Respiratory Rate 16 Blood Pressure 144/74 H Pulse Oximetry 98 Oxygen Delivery Mechanical Ventilation Fraction of Inspired Oxygen 40 01/27/25 21:00 01/27/25 22:00 01/27/25 22:00 Temperature 100.0 F H 100.0 F H Pulse Rate 77 81 75 Respiratory Rate 18 18 Blood Pressure 157/72 H 150/84 H Pulse Oximetry 98 99 Oxygen Delivery Fraction of Inspired Oxygen 01/27/25 22:00 01/27/25 23:00 01/27/25 23:10 Temperature 100.0 F H Pulse Rate 79 75 76 Respiratory Rate 19 Blood Pressure 150/84 H 148/88 H Pulse Oximetry 97 97 Oxygen Delivery Mechanical Ventilation Fraction of Inspired Oxygen 40 01/27/25 23:51 01/27/25 23:51 01/28/25 00:00 Temperature 100.2 F H Pulse Rate 76 77 Respiratory Rate 21 H 18 Blood Pressure 158/70 H Pulse Oximetry 97 99 Oxygen Delivery Mechanical Ventilation Fraction of Inspired Oxygen 40 40 01/28/25 00:00 01/28/25 00:01 01/28/25 01:00 Temperature 100.3 F H Pulse Rate 75 78 76 Respiratory Rate 21 H Blood Pressure 158/70 H 163/76 H Pulse Oximetry 98 Oxygen Delivery Fraction of Inspired Oxygen 01/28/25 02:00 01/28/25 02:00 01/28/25 02:00 Temperature 100.2 F H Pulse Rate 72 76 76 Respiratory Rate 21 H Blood Pressure 176/67 H 176/67 H Pulse Oximetry 99 Oxygen Delivery Fraction of Inspired Oxygen 01/28/25 02:16 01/28/25 02:17 01/28/25 02:29 Temperature Pulse Rate 72 71 76 Respiratory Rate 18 18 Blood Pressure Pulse Oximetry 99 Oxygen Delivery Mechanical Ventilation Fraction of Inspired Oxygen 40 01/28/25 03:00 01/28/25 03:43 01/28/25 03:43 Temperature 100.2 F H Pulse Rate 84 84 Respiratory Rate 20 20 Blood Pressure 159/67 H Pulse Oximetry 99 99 Oxygen Delivery Mechanical Ventilation Fraction of Inspired Oxygen 40 40 01/28/25 04:00 01/28/25 04:00 01/28/25 04:00 Temperature 100.1 F H Pulse Rate 66 84 84 Respiratory Rate 24 H Blood Pressure 180/87 H 180/87 H Pulse Oximetry 98 Oxygen Delivery Fraction of Inspired Oxygen 01/28/25 04:58 01/28/25 05:00 01/28/25 05:05 Temperature 99.8 F H Pulse Rate 77 72 170 H Respiratory Rate 24 H Blood Pressure 135/65 Pulse Oximetry 99 98 Oxygen Delivery Mechanical Ventilation Fraction of Inspired Oxygen 40 01/28/25 05:10 01/28/25 05:12 01/28/25 05:15 Temperature Pulse Rate 167 H 188 H 188 H Respiratory Rate Blood Pressure 135/65 Pulse Oximetry Oxygen Delivery Fraction of Inspired Oxygen 01/28/25 05:30 01/28/25 06:00 01/28/25 06:00 Temperature 100.1 F H Pulse Rate 70 71 74 Respiratory Rate 21 H 24 H Blood Pressure 126/70 145/68 H Pulse Oximetry 97 99 Oxygen Delivery Fraction of Inspired Oxygen 01/28/25 07:00 01/28/25 08:45 01/28/25 08:49 Temperature 100.3 F H Pulse Rate 85 76 76 Respiratory Rate 18 18 Blood Pressure 124/61 Pulse Oximetry 99 99 Oxygen Delivery Mechanical Ventilation Fraction of Inspired Oxygen 40 Intake/Output Intake/Output: Intake & Output 01/25/25 01/26/25 01/27/25 01/28/25 23:59 23:59 23:59 23:59 Intake Total 2237.0 3351.9 2100.4 1076.1 Output Total 869 975 6660 950 Balance 1480.0 2926.9 -924.6 126.1 Meds/Results Medications: Active Medications Generic Name Dose Route Start Last Admin Trade Name Freq PRN Reason Stop Dose Admin Albuterol/Ipratropium 3 ml 01/24/25 02:00 01/28/25 08:44 Ipratropium 0.5 Mg/Albuterol Sulfate 2.5 Mg (Base) Ampul.Neb 3 Ml INHALATION 3 ml Q6HRT JOCELYNE Administration Amlodipine Besylate 10 mg 01/28/25 09:00 Amlodipine Besylate 10 Mg Tablet PO DAILY JOCELYNE Aspirin 81 mg 01/24/25 12:00 01/27/25 08:26 Aspirin 81 Mg Enteric Tablet PO 81 mg QAM JOCELYNE Administration Atorvastatin Calcium 80 mg 01/24/25 21:00 01/27/25 20:32 Atorvastatin 40 Mg Tablet PO 80 mg QHS JOCELYNE Administration Carvedilol 3.125 mg 01/24/25 21:00 Carvedilol 3.125 Mg Tablet PO On Hold: 01/24/25 21:00 Q12HR JOCELYNE Empagliflozin 10 mg 01/27/25 09:00 01/27/25 08:26 Empagliflozin 10 Mg Tablet PO 10 mg DAILY JOCELYNE Administration Heparin Sodium (Porcine) 4,000 units 01/23/25 17:10 01/28/25 06:13 Heparin Sodium 5,000 Units/Ml Vial IV PUSH 4,000 units PRN PRN Administration aPTT less than 55 seconds Heparin Sodium (Porcine) 4,000 units 01/23/25 17:10 Heparin Sodium 5,000 Units/Ml Vial IV PUSH PRN PRN aPTT 55 - 70 seconds Hydralazine HCl 20 mg 01/27/25 19:40 01/28/25 04:00 Hydralazine Hcl 20 Mg/Ml Vial IV PUSH 20 mg Q4HR PRN Administration SBP > 160 Heparin Sodium/Dextrose 25,000 units in 250 mls @ 13 mls/hr 01/23/25 17:10 01/28/25 06:13 Heparin Sodium/D5w 100 Units/Ml IV CONT 1,300 units/hr .[id number] JOCELYNE 13 mls/hr Protocol Titration 1,300 UNITS/HR Fentanyl Citrate 2,500 mcg in 250 mls @ 0 mls/hr 01/23/25 21:15 01/27/25 19:49 Fentanyl 2,500 Mcg/Ns 250 Ml IV CONT Infused .Q0M JOCELYNE Titration Protocol Piperacillin Sod/Tazobactam 50 mls @ 100 mls/hr 01/23/25 22:00 01/28/25 06:14 Sod 3.375 gm/ Sodium Chloride IVPB Infused Q6H JOCELYNE Infusion Midazolam HCl 100 mg in 100 mls @ 0 mls/hr 01/24/25 12:20 01/27/25 19:50 Versed 100 Mg/Ns 100 Ml IV CONT Infused .Q0M JOCELYNE Titration Protocol Lidocaine HCl/Dextrose 2 gm in 500 mls @ 22.5 mls/hr 01/24/25 13:30 01/28/25 05:15 Lidocaine In D5w 4 Mg/Ml IV CONT 1.5 mg/min .[id number] JOCELYNE 22.5 mls/hr 1.5 MG/MIN Infusion Potassium Chloride 100 mls @ 25 mls/hr 01/28/25 07:17 Kcl 40 Meq/Water 100 Ml IVPB 01/28/25 11:16 ONCE ONE Magnesium Sulfate/Dextrose 3 gm in 100 mls @ 33.333 mls/hr 01/28/25 07:17 Magnesium Sulfate 3gm/[id number] IVPB 01/28/25 10:16 ONCE ONE Multi-Ingred Cream/Lotion/Oil/Oint 1 applic 01/24/25 09:00 01/27/25 20:32 Mineral Oil/White Petrolatum Ointment EACH EYE 1 applic Q12HR JOCELYNE Administration Pantoprazole Sodium 40 mg 01/24/25 09:00 01/27/25 08:27 Pantoprazole Sodium Iv 40 Mg Vial IV PUSH 40 mg DAILY JOCELYNE Administration Polyethylene Glycol 17 gm 01/27/25 10:14 Polyethylene Glycol 3350 17 Gm Powd.Pack PO QAM PRN Constipation Senna/Docusate Sodium 1 tab 01/27/25 21:00 01/27/25 20:32 Senna/Docusate Sodium Tablet PO 1 tab HS JOCELYNE Administration Sodium Chloride 10 ml 01/24/25 06:00 01/28/25 05:34 Central Line Flush IV PUSH 10 ml Q8HR JOCELYNE Administration Sodium Chloride 20 ml 01/23/25 22:48 Central Line Flush IV PUSH PRN PRN after blood draws Radiology Results: ITS Impressions Head CT 01/23/25 19:11 IMPRESSION: No acute intracranial hemorrhage or extra axial fluid collections. Bilateral mastoiditis. All CT scans at this facility are performed using low dose modulation techniques as appropriate to perform exam including the following: automated exposure control; use of iterative reconstruction technique; adjustment of the mA and/or kV according to patient size (this includes techniques or standardized protocols for targeted exams where dose is matched to indication/reason for exam). Chest/Abdomen/Pelvis CT 01/23/25 19:16 IMPRESSION: Bilateral lower lobe consolidation may represent pneumonia. No acute abdominal or pelvic findings. All CT scans at this facility are performed using low dose modulation techniques as appropriate to perform exam including the following: automated exposure control; use of iterative reconstruction technique; adjustment of the mA and/or kV according to patient size (this includes techniques or standardized protocols for targeted exams where dose is matched to indication/reason for exam). Venous Doppler Study 01/24/25 11:45 IMPRESSION: 1. No DVT either leg. Ankle Brachial Index 01/24/25 11:52 IMPRESSION: 1. Artery pressures and the pressures at the right and left brachial, posterior tibial and dorsalis pedis arteries were unable to be obtained likely due to markedly increased pressures with right and left great toe pressures of 212 and 214 mmHg respectively. Abdomen X-Ray 01/27/25 10:32 Impression: 1. No acute abnormality. Labs Labs: Laboratory Results - last 24 hr 01/27/25 01/27/25 01/27/25 11:38 17:37 23:42 WBC RBC Hgb Hct MCV MCH MCHC RDW Plt Count MPV Immature Gran % (Auto) Neut % (Auto) Lymph % (Auto) [facility] % (Auto) Eos % (Auto) Baso % (Auto) Lymph # (Auto) [facility] # (Auto) Eos # (Auto) Baso # (Auto) Abs Immat Gran (auto) Absolute Neuts (auto) Absolute Nucleated RBC Nucleated RBC % APTT Puncture Site ABG pH ABG pCO2 ABG pO2 ABG PO2/FiO2 Ratio ABG HCO3 ABG O2 Saturation ABG O2 Content ABG Base Excess A-a Gradient Oxyhemoglobin Carboxyhemoglobin Methemoglobin Reduced Hemoglobin Total Hemoglobin O2 Delivery Device O2 Liters/Min Minute Volume Vent Rate Vent Mode FiO2 Tidal Volume PEEP Peak Inspir Pressure Pressure Support Sodium Potassium Chloride Carbon Dioxide Anion Gap BUN Creatinine Estim Creat Clear Calc Estimated GFR Glucose POC Capillary Glucose 116 H 141 H 138 H Calcium Phosphorus Magnesium Total Bilirubin AST ALT Alkaline Phosphatase Total Protein Albumin 01/28/25 01/28/25 01/28/25 04:17 05:31 06:07 WBC 13.6 H RBC 3.63 L Hgb 12.3 L Hct 36.2 L MCV 99.7 MCH 33.9 MCHC 34.0 RDW 13.6 Plt Count 245 MPV 10.0 Immature Gran % (Auto) 0.5 Neut % (Auto) 72.8 Lymph % (Auto) 13.[address] [facility] % (Auto) 13.2 H Eos % (Auto) 0.1 Baso % (Auto) 0.1 L Lymph # (Auto) 1.80 [facility] # (Auto) 1.8 H Eos # (Auto) 0.0 Baso # (Auto) 0.0 Abs Immat Gran (auto) 0.07 H Absolute Neuts (auto) 9.9 H Absolute Nucleated RBC 0.000 Nucleated RBC % 0.0 APTT 39.8 H Puncture Site Left radial ABG pH 7.445 ABG pCO2 39.1 ABG pO2 123.7 H ABG PO2/FiO2 Ratio 3.09 ABG HCO3 26.3 H ABG O2 Saturation 98.6 ABG O2 Content 18.6 ABG Base Excess 2.2 A-a Gradient 189.4 Oxyhemoglobin 97.6 Carboxyhemoglobin 0.5 Methemoglobin 0.2 Reduced Hemoglobin 1.7 Total Hemoglobin 13.4 O2 Delivery Device Ventilator O2 Liters/Min Not Reportable Minute Volume Not Reportable Vent Rate 18 Vent Mode Cmv FiO2 40 Tidal Volume 420 PEEP 8 Peak Inspir Pressure Not Reportable Pressure Support Not Reportable Sodium 136 L Potassium 3.3 L Chloride 102 Carbon Dioxide 28 Anion Gap 6 BUN 15 Creatinine 1.35 H Estim Creat Clear Calc 62 Estimated GFR 51 L Glucose 117 H POC Capillary Glucose 145 H Calcium 9.0 Phosphorus 3.3 Magnesium 1.7 Total Bilirubin 1.0 AST 55 ALT 36 Alkaline Phosphatase 65 Total Protein 6.3 Albumin 3.3 L Quality VTE Prophylaxis VTE prophylaxis: pharmacologic ordered
[2025-01-28] MEDS: PANTOPRAZOLE SODIUM IV 40 MG VIAL IV PUSH (09:23)
[2025-01-28] MEDS: EMPAGLIFLOZIN 10 MG TABLET PO (09:23)
[2025-01-28] MEDS: POTASSIUM CHLORIDE 20 MEQ PACKET (FOR LIQUID) 40 MEQ PO (09:23)
[2025-01-28] MEDS: ASPIRIN 81 MG ENTERIC TABLET PO (09:23)
[2025-01-28] MEDS: MAGNESIUM SULFATE 3GM/D5W100ML 3 GM/100 ML BAG IVPB (09:24)
[2025-01-28] MEDS: MINERAL OIL/WHITE PETROLATUM OINTMENT 1 APPLIC EACH EYE ×2 (09:24→20:03)
[2025-01-28] MEDS: ACETAMINOPHEN ELIXIR 325 MG/10.15 ML UDC 650 MG PO ×2 (10:15→16:14)
[2025-01-28] MEDS: KCL 40 MEQ/WATER 100 ML 100 ML 25 ML IVPB (10:34)
[2025-01-28] MEDS: METOPROLOL TARTRATE 25 MG TABLET PO ×2 (10:56→20:03)
--- NOTE | 2025-01-28 12:32 | PM.PNCARD ---
Progress Note: A&P Assessment and Plan (1) Cardiac arrest with ventricular fibrillation: Code(s): I46.9 - Cardiac arrest, cause unspecified; I49.01 - Ventricular fibrillation Status: Acute (2) Chronic atrial fibrillation: Code(s): I48.20 - Chronic atrial fibrillation, unspecified Status: Acute (3) Paroxysmal atrial fibrillation: Code(s): I48.0 - Paroxysmal atrial fibrillation Status: Acute (4) Coronary artery disease involving [place] coronary artery of [place] heart without angina pectoris: Code(s): I25.10 - Atherosclerotic heart disease of [place] coronary artery without angina pectoris Status: Acute Plan VFib arrest status post ROSC now with SVT -cont wean sedation -continue lidocaine drip given concerns of ischemic electrical instability -add metoprolol low dose 25 mg BID NSTEMI s/p LHC with multivessel CAD heparin ASA Statin Chronic atrial fibrillation status post ablation -Eliquis on hold -continue heparin drip -home amiodarone on hold Moderate aortic stenosis -CTS consultation given his severe multivessel obstructive CAD -likely to progress to severe in near future Subjective Date/time seen: 01/28/25 12:32 Interval history: f/u NSTEMI cardiac arrest no acuet events tele: NSVT and SVT Review of Systems Review of Systems: ROS unobtainable: Yes unobtainable due to endotracheal tube Exam Const: Other: Intubated and sedated HENMT: Mouth: Yes moist mucous membranes Eyes: EOM: EOMs intact bilaterally Neck: Neck: no JVD Resp: Effort & Inspection: normal respiratory effort Auscultation: clear to auscultation bilaterally Cardio: Rate: regular rate Rhythm: regular rhythm GI: GI Palp: Yes Soft to palpation Extrem: General: no pedal edema Objective Data Vital Signs Vital Signs: Vital Signs - 24 hr 01/27/25 13:00 01/27/25 14:00 01/27/25 14:00 Temperature 37.6 C 37.7 C H Pulse Rate 65 64 64 Respiratory Rate 18 18 Blood Pressure 175/101 H 164/74 H Pulse Oximetry 97 97 Oxygen Delivery Fraction of Inspired Oxygen 01/27/25 14:00 01/27/25 14:00 01/27/25 14:00 Temperature Pulse Rate 65 65 65 Respiratory Rate 18 18 Blood Pressure 164/74 H Pulse Oximetry Oxygen Delivery Fraction of Inspired Oxygen 01/27/25 14:13 01/27/25 14:13 01/27/25 14:26 Temperature Pulse Rate 64 64 64 Respiratory Rate 18 18 Blood Pressure Pulse Oximetry 97 Oxygen Delivery Mechanical Ventilation Fraction of Inspired Oxygen 40 01/27/25 15:00 01/27/25 16:00 01/27/25 16:00 Temperature 37.7 C H Pulse Rate 60 67 67 Respiratory Rate 18 Blood Pressure 116/67 154/79 H Pulse Oximetry 98 Oxygen Delivery Fraction of Inspired Oxygen 01/27/25 16:00 01/27/25 16:00 01/27/25 16:00 Temperature 37.8 C H Pulse Rate 67 67 Respiratory Rate 18 18 Blood Pressure 154/79 H Pulse Oximetry 98 Oxygen Delivery Fraction of Inspired Oxygen 40 01/27/25 16:00 01/27/25 16:00 01/27/25 16:54 Temperature Pulse Rate 68 60 Respiratory Rate Blood Pressure Pulse Oximetry 98 99 Oxygen Delivery Mechanical Ventilation Mechanical Ventilation Fraction of Inspired Oxygen 40 40 01/27/25 17:00 01/27/25 18:00 01/27/25 18:00 Temperature 37.8 C H 37.8 C H Pulse Rate 65 70 65 Respiratory Rate 19 15 Blood Pressure 174/84 H 195/88 H Pulse Oximetry 99 100 Oxygen Delivery Fraction of Inspired Oxygen 01/27/25 18:00 01/27/25 18:00 01/27/25 18:00 Temperature Pulse Rate 65 65 65 Respiratory Rate 19 19 Blood Pressure 169/85 H Pulse Oximetry Oxygen Delivery Fraction of Inspired Oxygen 01/27/25 19:00 01/27/25 19:49 01/27/25 19:50 Temperature 37.8 C H Pulse Rate 82 74 74 Respiratory Rate 20 19 19 Blood Pressure 206/87 H Pulse Oximetry 98 Oxygen Delivery Fraction of Inspired Oxygen 01/27/25 20:00 01/27/25 20:00 01/27/25 20:00 Temperature 37.7 C H Pulse Rate 82 80 Respiratory Rate 22 H 16 Blood Pressure 189/86 H Pulse Oximetry 99 99 Oxygen Delivery Mechanical Ventilation Fraction of Inspired Oxygen 40 40 01/27/25 20:00 01/27/25 20:00 01/27/25 20:18 Temperature Pulse Rate 76 75 80 Respiratory Rate 16 Blood Pressure 189/86 H Pulse Oximetry Oxygen Delivery Fraction of Inspired Oxygen 01/27/25 20:19 01/27/25 20:37 01/27/25 20:50 Temperature Pulse Rate 75 78 80 Respiratory Rate 16 Blood Pressure 144/74 H Pulse Oximetry 98 Oxygen Delivery Mechanical Ventilation Fraction of Inspired Oxygen 40 01/27/25 21:00 01/27/25 22:00 01/27/25 22:00 Temperature 37.8 C H 37.8 C H Pulse Rate 77 81 75 Respiratory Rate 18 18 Blood Pressure 157/72 H 150/84 H Pulse Oximetry 98 99 Oxygen Delivery Fraction of Inspired Oxygen 01/27/25 22:00 01/27/25 23:00 01/27/25 23:10 Temperature 37.8 C H Pulse Rate 79 75 76 Respiratory Rate 19 Blood Pressure 150/84 H 148/88 H Pulse Oximetry 97 97 Oxygen Delivery Mechanical Ventilation Fraction of Inspired Oxygen 40 01/27/25 23:51 01/27/25 23:51 01/28/25 00:00 Temperature 37.9 C H Pulse Rate 76 77 Respiratory Rate 21 H 18 Blood Pressure 158/70 H Pulse Oximetry 97 99 Oxygen Delivery Mechanical Ventilation Fraction of Inspired Oxygen 40 40 01/28/25 00:00 01/28/25 00:01 01/28/25 01:00 Temperature 37.9 C H Pulse Rate 75 78 76 Respiratory Rate 21 H Blood Pressure 158/70 H 163/76 H Pulse Oximetry 98 Oxygen Delivery Fraction of Inspired Oxygen 01/28/25 02:00 01/28/25 02:00 01/28/25 02:00 Temperature 37.9 C H Pulse Rate 72 76 76 Respiratory Rate 21 H Blood Pressure 176/67 H 176/67 H Pulse Oximetry 99 Oxygen Delivery Fraction of Inspired Oxygen 01/28/25 02:16 01/28/25 02:17 01/28/25 02:29 Temperature Pulse Rate 72 71 76 Respiratory Rate 18 18 Blood Pressure Pulse Oximetry 99 Oxygen Delivery Mechanical Ventilation Fraction of Inspired Oxygen 40 01/28/25 03:00 01/28/25 03:43 01/28/25 03:43 Temperature 37.9 C H Pulse Rate 84 84 Respiratory Rate 20 20 Blood Pressure 159/67 H Pulse Oximetry 99 99 Oxygen Delivery Mechanical Ventilation Fraction of Inspired Oxygen 40 40 01/28/25 04:00 01/28/25 04:00 01/28/25 04:00 Temperature 37.8 C H Pulse Rate 66 84 84 Respiratory Rate 24 H Blood Pressure 180/87 H 180/87 H Pulse Oximetry 98 Oxygen Delivery Fraction of Inspired Oxygen 01/28/25 04:58 01/28/25 05:00 01/28/25 05:05 Temperature 37.7 C H Pulse Rate 77 72 170 H Respiratory Rate 24 H Blood Pressure 135/65 Pulse Oximetry 99 98 Oxygen Delivery Mechanical Ventilation Fraction of Inspired Oxygen 40 01/28/25 05:10 01/28/25 05:12 01/28/25 05:15 Temperature Pulse Rate 167 H 188 H 188 H Respiratory Rate Blood Pressure 135/65 Pulse Oximetry Oxygen Delivery Fraction of Inspired Oxygen 01/28/25 05:30 01/28/25 06:00 01/28/25 06:00 Temperature 37.8 C H Pulse Rate 70 71 74 Respiratory Rate 21 H 24 H Blood Pressure 126/70 145/68 H Pulse Oximetry 97 99 Oxygen Delivery Fraction of Inspired Oxygen 01/28/25 07:00 01/28/25 08:00 01/28/25 08:00 Temperature 37.9 C H Pulse Rate 85 Respiratory Rate 18 Blood Pressure 124/61 Pulse Oximetry 99 99 Oxygen Delivery Mechanical Ventilation Fraction of Inspired Oxygen 30 01/28/25 08:00 01/28/25 08:45 01/28/25 08:49 Temperature 38.0 C H Pulse Rate 78 76 76 Respiratory Rate 21 H 18 Blood Pressure 127/57 L Pulse Oximetry 99 99 Oxygen Delivery Mechanical Ventilation Fraction of Inspired Oxygen 30 01/28/25 09:00 01/28/25 09:02 01/28/25 09:19 Temperature 37.9 C H Pulse Rate 79 84 85 Respiratory Rate 20 19 Blood Pressure 144/69 H 144/69 H Pulse Oximetry 99 Oxygen Delivery Fraction of Inspired Oxygen 01/28/25 09:27 01/28/25 10:00 01/28/25 10:15 Temperature 37.8 C H 37.8 C H Pulse Rate 85 82 Respiratory Rate 17 Blood Pressure 144/69 H 149/90 H Pulse Oximetry 97 Oxygen Delivery Fraction of Inspired Oxygen 01/28/25 10:56 01/28/25 11:20 Temperature Pulse Rate 86 80 Respiratory Rate Blood Pressure Pulse Oximetry 97 Oxygen Delivery Mechanical Ventilation Fraction of Inspired Oxygen 30 Intake/Output Intake/Output: Intake & Output 01/25/25 01/26/25 01/27/25 01/28/25 23:59 23:59 23:59 23:59 Intake Total 2237.0 3351.9 2100.4 1217.3 Output Total 787 953 6610 950 Balance 1480.0 2926.9 -924.6 267.3 Meds/Results Medications: Active Medications Generic Name Dose Route Start Last Admin Trade Name Freq PRN Reason Stop Dose Admin Acetaminophen 650 mg 01/28/25 10:07 01/28/25 10:15 Acetaminophen Elixir 325 Mg/10.15 Ml Udc PO 650 mg Q6H PRN Administration Mild Pain (1-3) or Fever Albuterol/Ipratropium 3 ml 01/24/25 02:00 01/28/25 08:44 Ipratropium 0.5 Mg/Albuterol Sulfate 2.5 Mg (Base) Ampul.Neb 3 Ml INHALATION 3 ml Q6HRT JOCELYNE Administration Amlodipine Besylate 10 mg 01/28/25 09:00 01/28/25 09:23 Amlodipine Besylate 10 Mg Tablet PO 10 mg DAILY JOCELYNE Administration Aspirin 81 mg 01/24/25 12:00 01/28/25 09:23 Aspirin 81 Mg Enteric Tablet PO 81 mg QAM JOCELYNE Administration Atorvastatin Calcium 80 mg 01/24/25 21:00 01/27/25 20:32 Atorvastatin 40 Mg Tablet PO 80 mg QHS JOCELYNE Administration Carvedilol 3.125 mg 01/24/25 21:00 Carvedilol 3.125 Mg Tablet PO On Hold: 01/24/25 21:00 Q12HR JOCELYNE Empagliflozin 10 mg 01/27/25 09:00 01/28/25 09:23 Empagliflozin 10 Mg Tablet PO 10 mg DAILY JOCELYNE Administration Heparin Sodium (Porcine) 4,000 units 01/23/25 17:10 01/28/25 06:13 Heparin Sodium 5,000 Units/Ml Vial IV PUSH 4,000 units PRN PRN Administration aPTT less than 55 seconds Heparin Sodium (Porcine) 4,000 units 01/23/25 17:10 Heparin Sodium 5,000 Units/Ml Vial IV PUSH PRN PRN aPTT 55 - 70 seconds Hydralazine HCl 20 mg 01/27/25 19:40 01/28/25 04:00 Hydralazine Hcl 20 Mg/Ml Vial IV PUSH 20 mg Q4HR PRN Administration SBP > 160 Heparin Sodium/Dextrose 25,000 units in 250 mls @ 13 mls/hr 01/23/25 17:10 01/28/25 06:13 Heparin Sodium/D5w 100 Units/Ml IV CONT 1,300 units/hr .[id number] JOCELYNE 13 mls/hr Protocol Titration 1,300 UNITS/HR Fentanyl Citrate 2,500 mcg in 250 mls @ 0 mls/hr 01/23/25 21:15 01/27/25 19:49 Fentanyl 2,500 Mcg/Ns 250 Ml IV CONT Infused .Q0M JOCELYNE Titration Protocol Piperacillin Sod/Tazobactam 50 mls @ 100 mls/hr 01/23/25 22:00 01/28/25 09:53 Sod 3.375 gm/ Sodium Chloride IVPB Infused Q6H JOCELYNE Infusion Midazolam HCl 100 mg in 100 mls @ 0 mls/hr 01/24/25 12:20 01/27/25 19:50 Versed 100 Mg/Ns 100 Ml IV CONT Infused .Q0M JOCELYNE Titration Protocol Lidocaine HCl/Dextrose 2 gm in 500 mls @ 22.5 mls/hr 01/24/25 13:30 01/28/25 09:27 Lidocaine In D5w 4 Mg/Ml IV CONT 1.5 mg/min .[id number] JOCELYNE 22.5 mls/hr 1.5 MG/MIN Administration Metoprolol Tartrate 25 mg 01/28/25 21:00 Metoprolol Tartrate 25 Mg Tablet PO Q12HR JOCELYNE Multi-Ingred Cream/Lotion/Oil/Oint 1 applic 01/24/25 09:00 01/28/25 09:24 Mineral Oil/White Petrolatum Ointment EACH EYE 1 applic Q12HR JOCELYNE Administration Pantoprazole Sodium 40 mg 01/24/25 09:00 01/28/25 09:23 Pantoprazole Sodium Iv 40 Mg Vial IV PUSH 40 mg DAILY JOCELYNE Administration Polyethylene Glycol 17 gm 01/27/25 10:14 Polyethylene Glycol 3350 17 Gm Powd.Pack PO QAM PRN Constipation Senna/Docusate Sodium 1 tab 01/27/25 21:00 01/27/25 20:32 Senna/Docusate Sodium Tablet PO 1 tab HS JOCELYNE Administration Sodium Chloride 10 ml 01/24/25 06:00 01/28/25 05:34 Central Line Flush IV PUSH 10 ml Q8HR JOCELYNE Administration Sodium Chloride 20 ml 01/23/25 22:48 Central Line Flush IV PUSH PRN PRN after blood draws Radiology Results: ITS Impressions Head CT 01/23/25 19:11 IMPRESSION: No acute intracranial hemorrhage or extra axial fluid collections. Bilateral mastoiditis. All CT scans at this facility are performed using low dose modulation techniques as appropriate to perform exam including the following: automated exposure control; use of iterative reconstruction technique; adjustment of the mA and/or kV according to patient size (this includes techniques or standardized protocols for targeted exams where dose is matched to indication/reason for exam). Chest/Abdomen/Pelvis CT 01/23/25 19:16 IMPRESSION: Bilateral lower lobe consolidation may represent pneumonia. No acute abdominal or pelvic findings. All CT scans at this facility are performed using low dose modulation techniques as appropriate to perform exam including the following: automated exposure control; use of iterative reconstruction technique; adjustment of the mA and/or kV according to patient size (this includes techniques or standardized protocols for targeted exams where dose is matched to indication/reason for exam). Venous Doppler Study 01/24/25 11:45 IMPRESSION: 1. No DVT either leg. Ankle Brachial Index 01/24/25 11:52 IMPRESSION: 1. Artery pressures and the pressures at the right and left brachial, posterior tibial and dorsalis pedis arteries were unable to be obtained likely due to markedly increased pressures with right and left great toe pressures of 212 and 214 mmHg respectively. Abdomen X-Ray 01/27/25 10:32 Impression: 1. No acute abnormality. Chest X-Ray 01/28/25 10:05 IMPRESSION: 1. Persistent interstitial pulmonary edema or pneumonitis. 2. Persistent bibasilar atelectasis and/or airspace disease. Labs Labs: Laboratory Results - last 24 hr 01/27/25 01/27/25 01/28/25 17:37 23:42 04:17 WBC RBC Hgb Hct MCV MCH MCHC RDW Plt Count MPV Immature Gran % (Auto) Neut % (Auto) Lymph % (Auto) Dawson % (Auto) Eos % (Auto) Baso % (Auto) Lymph # (Auto) Dawson # (Auto) Eos # (Auto) Baso # (Auto) Abs Immat Gran (auto) Absolute Neuts (auto) Absolute Nucleated RBC Nucleated RBC % APTT Puncture Site Left radial ABG pH 7.445 ABG pCO2 39.1 ABG pO2 123.7 H ABG PO2/FiO2 Ratio 3.09 ABG HCO3 26.3 H ABG O2 Saturation 98.6 ABG O2 Content 18.6 ABG Base Excess 2.2 A-a Gradient 189.4 Oxyhemoglobin 97.6 Carboxyhemoglobin 0.5 Methemoglobin 0.2 Reduced Hemoglobin 1.7 Total Hemoglobin 13.4 O2 Delivery Device Ventilator O2 Liters/Min Not Reportable Minute Volume Not Reportable Vent Rate 18 Vent Mode Cmv FiO2 40 Tidal Volume 420 PEEP 8 Peak Inspir Pressure Not Reportable Pressure Support Not Reportable Sodium Potassium Chloride Carbon Dioxide Anion Gap BUN Creatinine Estim Creat Clear Calc Estimated GFR Glucose POC Capillary Glucose 141 H 138 H Calcium Phosphorus Magnesium Total Bilirubin AST ALT Alkaline Phosphatase Total Protein Albumin 01/28/25 01/28/25 05:31 06:07 WBC 13.6 H RBC 3.63 L Hgb 12.3 L Hct 36.2 L MCV 99.7 MCH 33.9 MCHC 34.0 RDW 13.6 Plt Count 245 MPV 10.0 Immature Gran % (Auto) 0.5 Neut % (Auto) 72.8 Lymph % (Auto) 13.3 L Dawson % (Auto) 13.2 H Eos % (Auto) 0.1 Baso % (Auto) 0.1 L Lymph # (Auto) 1.80 Dawson # (Auto) 1.8 H Eos # (Auto) 0.0 Baso # (Auto) 0.0 Abs Immat Gran (auto) 0.07 H Absolute Neuts (auto) 9.9 H Absolute Nucleated RBC 0.000 Nucleated RBC % 0.0 APTT 39.8 H Puncture Site ABG pH ABG pCO2 ABG pO2 ABG PO2/FiO2 Ratio ABG HCO3 ABG O2 Saturation ABG O2 Content ABG Base Excess A-a Gradient Oxyhemoglobin Carboxyhemoglobin Methemoglobin Reduced Hemoglobin Total Hemoglobin O2 Delivery Device O2 Liters/Min Minute Volume Vent Rate Vent Mode FiO2 Tidal Volume PEEP Peak Inspir Pressure Pressure Support Sodium 136 L Potassium 3.3 L Chloride 102 Carbon Dioxide 28 Anion Gap 6 BUN 15 Creatinine 1.35 H Estim Creat Clear Calc 62 Estimated GFR 51 L Glucose 117 H POC Capillary Glucose 145 H Calcium 9.0 Phosphorus 3.3 Magnesium 1.7 Total Bilirubin 1.0 AST 55 ALT 36 Alkaline Phosphatase 65 Total Protein 6.3 Albumin 3.3 L
[2025-01-28 12:37] LABS: Partial Thromboplastin Time 140.2 Seconds (22.3-36.8)
[2025-01-28] MEDS: HEPARIN SOD/D5W 100 UNITS/ML 25,000 UNITS/250 ML BAG 11 UNITS IV CONT (16:08)
[2025-01-28 19:30] LABS: Partial Thromboplastin Time 90.7 Seconds (22.3-36.8)
[2025-01-28] MEDS: SENNA/DOCUSATE SODIUM TABLET 1 TAB PO (20:03)
[2025-01-28] MEDS: ATORVASTATIN 40 MG TABLET 80 MG PO (20:03)
[2025-01-28] MEDS: dexmedeTOMIDine 400 MCG/100 ML 400 MCG/100 ML BAG 7.43 MCG IV CONT (21:46)
[2025-01-29] VITALS (53 sets, daily range): BP systolic 83–227; BP diastolic 54–195; PULSE 39–166; RESP 17–30; TEMP 36.9–37.9; O2SAT 94–100
[2025-01-29 01:32] LABS: Partial Thromboplastin Time 93.4 Seconds (22.3-36.8)
[2025-01-29] MEDS: IPRATROPIUM 0.5 MG/ALBUTEROL SULFATE 2.5 MG (BASE) AMPUL.NEB 3 ML INHALATION ×4 (02:22→21:05)
[2025-01-29] MEDS: CENTRAL LINE FLUSH 10 ML IV PUSH ×3 (04:40→22:09)
[2025-01-29] MEDS: PIPERACILLIN/TAZOBACTAM SOD 3.375 GM in SODIUM CHLORIDE 0.9% IV 50 ML 100 ML IVPB ×4 (04:40→22:03)
[2025-01-29 04:54] LABS: Alveolar/Arterial O2 Gradient 90.4 mmHg; Carboxyhemoglobin 0.5 % THb (0-2.0); Fractional Inspired Oxygen 30 %; HCO3 ABG 22.2 mEq/l (22.0-26.0); Methemoglobin ABG 0.0 %THb (0-1.5); Oxygen Content ABG 16.1 %vol (16.0-22.0); Oxygen Saturation ABG 97.2 % (95.0-100.0); PCO2 ABG 30.9 mmHg (35.0-45.0); PO2 ABG 87.2 mmHg (80.0-100.0); PO2 FiO2 Ratio Arterial Blood 2.91 %; Reduced Hemoglobin 3.7 %THb (0-5.0)
[2025-01-29 04:57] LABS: Modified Allen's Test Pass; Site Drawn LEFT RADIAL
[2025-01-29 04:58] LABS: Arterial Blood Gas Tidal Volume 420 ml; Arterial Blood Gas Ventilator rate 18 /MIN
[2025-01-29] MEDS: dexmedeTOMIDine 400 MCG/100 ML 400 MCG/100 ML BAG 7.43 MCG IV CONT (05:02)
[2025-01-29 05:18] LABS: Hematocrit 33.2 % (42.0-52.0); Hemoglobin 10.9 g/dL (14.0-18.0); Immature Granulocyte Percent A 0.4 % (0-0.5); Lymphocytes Absolute Auto 2.04 K/mm3 (0.9-3.2); Mean Corpuscular HGB Conc 32.8 g/dl (32-36); Mean Corpuscular Hemoglobin 33.3 pg (26-34); Mean Corpuscular Volume 101.5 fl (80-100); Nucleated Red Blood Cells Absolute Auto 0.000 K/mm3 (0.0-0.012); Nucleated Red Blood Cells Perc 0.0 % (0.0-0.2); Platelet Count Result 206 k/mm3 (150-375); Red Blood Count 3.27 M/mm3 (4.6-6.20); White Blood Count 11.3 K/mm3 (4.5-10.0)
[2025-01-29 05:34] LABS: Partial Thromboplastin Time 114.7 Seconds (22.3-36.8)
[2025-01-29 05:40] LABS: Alanine Aminotransferase 34 U/L (6-50); Albumin Level 3.1 g/dL (3.5-5.1); Alkaline Phosphatase 61 U/L (38-126); Anion Gap 3 mmol/L (4-12); Aspartate Amino Transferase 56 U/L (17-59); Bilirubin,Total 0.9 mg/dL (0.2-1.3); Blood Urea Nitrogen 20 mg/dL (9-20); Calcium 9.2 mg/dL (8.4-10.2); Carbon Dioxide 30 mmol/L (22-30); Chloride 103 mmol/L (98-107); Estimated CRCL calculation 65 ml/min; Estimated Glomerular Filt Rate 52; Glucose 134 mg/dL (65-110); Magnesium 1.9 mg/dL (1.6-2.3); Potassium 3.8 mmol/L (3.4-5.0); Sodium 136 mmol/L (137-145); Total Protein 5.9 g/dL (6.3-8.2)
--- NOTE | 2025-01-29 06:31 | PC.NURSE ---
ileostomy output charted under stool, colostomy output charted under other output
[2025-01-29] MEDS: EMPAGLIFLOZIN 10 MG TABLET PO (08:42)
[2025-01-29] MEDS: PANTOPRAZOLE SODIUM IV 40 MG VIAL IV PUSH (08:42)
[2025-01-29] MEDS: ASPIRIN 81 MG ENTERIC TABLET PO (08:42)
[2025-01-29] MEDS: MINERAL OIL/WHITE PETROLATUM OINTMENT 1 APPLIC EACH EYE ×2 (08:43→20:01)
[2025-01-29] MEDS: MAGNESIUM SULF 2 GM/WATER 50ML 2 GM/50 ML BAG IVPB (08:45)
[2025-01-29] MEDS: POTASSIUM CHLORIDE 20 MEQ PACKET (FOR LIQUID) PO (08:45)
--- NOTE | 2025-01-29 09:54 | P.PNINT_ITS ---
Assessment and Plan Assessment and Plan (1) Encephalopathy: Code(s): G93.40 - Encephalopathy, unspecified Status: Acute Assessment and Plan: Post cardiac arrest encephalopathy, status post trach get temperature manage -off all sedation since 01/27/2025 at 8:00 a.m. -opens eyes, tracks, nods to questions, follows simple commands with upper extremities, moves lower extremities spontaneous -patient is hard of hearing (2) Acute respiratory failure: Code(s): J96.00 - Acute respiratory failure, unspecified whether with hypoxia or hypercapnia Status: Acute Assessment and Plan: Acute respiratory failure likely related to cardiac arrest. Also pulmonary edema, pneumonia as seen on CT chest -intubated on 01/23/2025 -currently on CMV mode of ventilation, peep of 5, 40% FiO2 -chest x-ray and ABGs reviewed -continue bronchodilator -off all sedation, will allow patient to wake up and evaluate neurological status, -once his neurological status improves and place him on SBT and evaluate for extubation -01/28: Tried patient on pressure support and ASV, patient was very dyssynchronous at extremely high tidal volumes for some breaths and extremely low tidal volumes for the on the so placed him back on CMV mode, will retry again later if he is more awake -01/29: Patient was getting agitated overnight so was started on low-dose Precedex infusion. I have placed patient on pressure support ventilation, will evaluate for extubation (3) Cardiac arrest with ventricular fibrillation: Code(s): I46.9 - Cardiac arrest, cause unspecified; I49.01 - Ventricular fibrillation Status: Acute Assessment and Plan: 01/23: Patient presented the ED with dizziness and nausea. While he was in the ER waiting room, went unresponsive, was in VFib arrest -status post VFib cardiac arrest, requiring defibrillation x1, epinephrine x1 and CPR before ROSC. 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 12/06: Patient went into SVT on early this morning with V-tach, converted to sinus rhythm with metoprolol 5 mg IV x1. Increased lidocaine to 1.5 mg/min. Discuss with cardiology will add metoprolol 25 mg p.o. q.12 hours 01/29: The heart rates her low, will hold metoprolol for now since patient is on Precedex infusion (4) Mixed hyperlipidemia: Code(s): E78.2 - Mixed hyperlipidemia Status: Acute Assessment and Plan: Contain atorvastatin (5) Chronic atrial fibrillation: Code(s): I48.20 - Chronic atrial fibrillation, unspecified Status: Acute Assessment and Plan: Currently in ventricular bigeminy, will hold amiodarone infusion -hold Coreg -continue heparin infusion and lidocaine infusion per Cardiology Plan DVT prophylaxis: Heparin infusion Stress ulcer prophylaxis: Protonix Nutrition: Tolerating tube feeds Code Status: Full code Critical Care Time Spent: 32 minutes Discussed with edu Diane and updated with patient's condition and plan of care Due to a high probability of clinically significant, life threatening deterioration, the patient required my highest level of preparedness to intervene emergently and I personally spent this critical care time directly and personally managing the patient. This critical care time included obtaining a history; examining the patient; pulse oximetry; ordering and review of studies; arranging urgent treatment with development of a management plan; evaluation of patient's response to treatment; frequent reassessment; and discussions with other providers. It was exclusive of separately billable procedures and treating other patients and teaching time. Please see Assessment and Plan section and the rest of the note for further information on patient assessment and treatment This dictation may have been done utilizing a voice recognition system. Attempts have been made to correct errors. However, there may be uncorrected grammatical, spelling, and recognitions errors present. Subjective Date/time seen: 01/29/25 09:54 Interval history: Reason for consult: Cardiac arrest, ventricular fibrillation, respiratory failure post cardiac arrest, presented with dizziness along with nausea to the ER on 01/23/2025 01/29/2025: Patient seen and examined the ICU remains intubated on CMV mode of ventilation, peep of 8, 30% FiO2. Patient has been off sedation since 01/27/2025 8 8:00 a.m.. Opens his eyes, follows simple commands in upper extremities, nods to questions. Patient was getting agitated overnight so was started on a small dose of Precedex. No more episodes of V-tach or other arrhythmias. Urine output has been adequate, patient is afebrile, hemodynamically stable, tolerating tube feeds Review of Systems Review of Systems: ROS unobtainable: Yes unobtainable due to endotracheal tube, unobtainable due to medical condition and unobtainable due to mental status Exam Narrative: General: Intubated, not in any distress HEENT:? Pupils equal and reactive, sclera is clear, ETT in place Neck:? Supple Respiratory:? Coarse breath sounds bilaterally, decreased at bases, no wheeze Cardiac:? Sinus rhythm, rate controlled Abdomen:? Soft, nontender, nondistended, hypoactive bowel sounds Extremities:? Trace edema bilaterally, palpable pulses. Ruptured blisters noted on the right hand, edematous currently in a splint and Heber wrap Neuro:? Patient is intubated, OFF sedation, opens his eyes on a tracks, followed simple commands in upper extremities, does move lower extremities spontaneously Skin:? No lesions noted Psych:? Unable to assess at this time Objective Data Vital Signs Vital Signs: Vital Signs - 24 hr 01/28/25 10:00 01/28/25 10:00 01/28/25 10:00 Temperature 100.1 F H Pulse Rate 82 84 84 Respiratory Rate 17 Blood Pressure 149/90 H 149/90 H Pulse Oximetry 97 Oxygen Delivery Fraction of Inspired Oxygen 01/28/25 10:15 01/28/25 10:56 01/28/25 11:00 Temperature 100.0 F H 99.8 F H Pulse Rate 86 80 Respiratory Rate 18 Blood Pressure 165/71 H Pulse Oximetry 97 Oxygen Delivery Fraction of Inspired Oxygen 01/28/25 11:20 01/28/25 12:00 01/28/25 12:00 Temperature 100.0 F H Pulse Rate 80 68 68 Respiratory Rate 16 Blood Pressure 151/89 H 151/89 H Pulse Oximetry 97 97 Oxygen Delivery Mechanical Ventilation Fraction of Inspired Oxygen 30 01/28/25 12:00 01/28/25 12:00 01/28/25 12:00 Temperature Pulse Rate 70 Respiratory Rate Blood Pressure Pulse Oximetry 98 Oxygen Delivery Mechanical Ventilation Fraction of Inspired Oxygen 30 01/28/25 13:00 01/28/25 14:00 01/28/25 14:00 Temperature 100.0 F H 99.9 F H Pulse Rate 68 66 66 Respiratory Rate 18 18 Blood Pressure 156/76 H 123/79 123/79 Pulse Oximetry 98 97 Oxygen Delivery Fraction of Inspired Oxygen 01/28/25 14:00 01/28/25 14:02 01/28/25 14:04 Temperature Pulse Rate 66 65 64 Respiratory Rate 18 Blood Pressure Pulse Oximetry 97 Oxygen Delivery Mechanical Ventilation Fraction of Inspired Oxygen 30 01/28/25 14:11 01/28/25 15:00 01/28/25 16:00 Temperature 99.9 F H 99.9 F H Pulse Rate 65 66 70 Respiratory Rate 20 15 24 H Blood Pressure 132/84 159/64 H Pulse Oximetry 98 98 Oxygen Delivery Fraction of Inspired Oxygen 01/28/25 16:00 01/28/25 16:00 01/28/25 16:00 Temperature Pulse Rate 70 70 Respiratory Rate Blood Pressure 152/56 H Pulse Oximetry 98 Oxygen Delivery Mechanical Ventilation Fraction of Inspired Oxygen 01/28/25 16:00 01/28/25 16:14 01/28/25 16:41 Temperature 99.9 F H Pulse Rate 65 Respiratory Rate Blood Pressure Pulse Oximetry 96 Oxygen Delivery Mechanical Ventilation Fraction of Inspired Oxygen 30 30 01/28/25 17:00 01/28/25 17:31 01/28/25 18:00 Temperature 99.8 F H 99.7 F H Pulse Rate 64 64 Respiratory Rate 17 Blood Pressure 156/86 H Pulse Oximetry 97 Oxygen Delivery Fraction of Inspired Oxygen 01/28/25 18:00 01/28/25 18:00 01/28/25 19:00 Temperature 99.7 F H 99.7 F H Pulse Rate 64 62 62 Respiratory Rate 17 18 Blood Pressure 141/86 H 158/67 H 153/86 H Pulse Oximetry 97 97 Oxygen Delivery Fraction of Inspired Oxygen 01/28/25 19:29 01/28/25 19:29 01/28/25 19:59 Temperature Pulse Rate 63 63 Respiratory Rate 23 H Blood Pressure Pulse Oximetry 97 Oxygen Delivery Mechanical Ventilation Fraction of Inspired Oxygen 30 30 01/28/25 20:00 01/28/25 20:00 01/28/25 20:00 Temperature 99.7 F H Pulse Rate 64 66 66 Respiratory Rate 18 Blood Pressure 137/75 137/75 Pulse Oximetry 97 Oxygen Delivery Fraction of Inspired Oxygen 01/28/25 20:00 01/28/25 20:03 01/28/25 21:10 Temperature 99.7 F H Pulse Rate 66 65 Respiratory Rate 18 Blood Pressure 181/149 H Pulse Oximetry 97 97 Oxygen Delivery Mechanical Ventilation Fraction of Inspired Oxygen 30 01/28/25 21:30 01/28/25 21:46 01/28/25 22:00 Temperature 99.7 F H Pulse Rate 66 69 71 Respiratory Rate 19 18 Blood Pressure 146/136 H 143/118 H Pulse Oximetry 97 Oxygen Delivery Fraction of Inspired Oxygen 01/28/25 22:00 01/28/25 22:00 01/28/25 22:16 Temperature Pulse Rate 71 71 73 Respiratory Rate 18 Blood Pressure 143/118 H Pulse Oximetry Oxygen Delivery Fraction of Inspired Oxygen 01/28/25 22:40 01/28/25 23:05 01/28/25 23:08 Temperature 100.1 F H Pulse Rate 67 60 60 Respiratory Rate 18 18 Blood Pressure 123/64 Pulse Oximetry 96 95 Oxygen Delivery Mechanical Ventilation Fraction of Inspired Oxygen 30 01/29/25 00:00 01/29/25 00:00 01/29/25 00:00 Temperature 100.2 F H Pulse Rate 52 L 52 L Respiratory Rate 20 20 Blood Pressure 128/88 Pulse Oximetry 95 Oxygen Delivery Fraction of Inspired Oxygen 30 01/29/25 00:00 01/29/25 00:00 01/29/25 00:00 Temperature Pulse Rate 56 L 53 L Respiratory Rate Blood Pressure 128/88 Pulse Oximetry 95 Oxygen Delivery Mechanical Ventilation Fraction of Inspired Oxygen 30 01/29/25 00:35 01/29/25 01:00 01/29/25 01:03 Temperature 100.0 F H Pulse Rate 44 L 42 L 42 L Respiratory Rate 18 19 19 Blood Pressure 93/58 L Pulse Oximetry 96 Oxygen Delivery Fraction of Inspired Oxygen 01/29/25 01:58 01/29/25 02:00 01/29/25 02:00 Temperature 99.5 F Pulse Rate 55 L 54 L 54 L Respiratory Rate 18 18 Blood Pressure 139/77 Pulse Oximetry 97 Oxygen Delivery Fraction of Inspired Oxygen 01/29/25 02:00 01/29/25 02:14 01/29/25 02:23 Temperature Pulse Rate 54 L 55 L 53 L Respiratory Rate 18 Blood Pressure 139/77 Pulse Oximetry 97 Oxygen Delivery Mechanical Ventilation Fraction of Inspired Oxygen 30 01/29/25 02:23 01/29/25 02:57 01/29/25 03:00 Temperature 99.4 F Pulse Rate 53 L 42 L 41 L Respiratory Rate 21 H 18 18 Blood Pressure 86/55 L Pulse Oximetry 94 Oxygen Delivery Fraction of Inspired Oxygen 01/29/25 03:29 01/29/25 04:00 01/29/25 04:00 Temperature 99.1 F Pulse Rate 39 L 43 L 46 L Respiratory Rate 18 18 Blood Pressure 115/69 Pulse Oximetry 95 Oxygen Delivery Fraction of Inspired Oxygen 01/29/25 04:00 01/29/25 04:00 01/29/25 04:00 Temperature Pulse Rate 46 L Respiratory Rate Blood Pressure 115/69 Pulse Oximetry 95 Oxygen Delivery Mechanical Ventilation Fraction of Inspired Oxygen 30 30 01/29/25 05:00 01/29/25 05:02 01/29/25 05:02 Temperature 98.8 F Pulse Rate 50 L 50 L 50 L Respiratory Rate 19 19 19 Blood Pressure 104/58 L Pulse Oximetry 97 Oxygen Delivery Fraction of Inspired Oxygen 01/29/25 05:55 01/29/25 06:00 01/29/25 06:00 Temperature 98.8 F Pulse Rate 50 L 50 L 50 L Respiratory Rate 17 Blood Pressure 124/72 Pulse Oximetry 97 98 Oxygen Delivery Mechanical Ventilation Fraction of Inspired Oxygen 30 01/29/25 06:00 01/29/25 06:00 01/29/25 07:00 Temperature 99.0 F Pulse Rate 50 L 50 L 48 L Respiratory Rate 17 18 Blood Pressure 124/72 120/73 Pulse Oximetry 96 Oxygen Delivery Fraction of Inspired Oxygen 01/29/25 07:32 01/29/25 07:38 01/29/25 07:39 Temperature Pulse Rate 50 L 50 L 50 L Respiratory Rate 24 H 23 H Blood Pressure Pulse Oximetry 98 Oxygen Delivery Mechanical Ventilation Fraction of Inspired Oxygen 30 01/29/25 07:41 01/29/25 08:00 01/29/25 08:00 Temperature Pulse Rate 56 L 56 L 56 L Respiratory Rate 23 H Blood Pressure 83/68 L Pulse Oximetry 97 Oxygen Delivery Mechanical Ventilation Fraction of Inspired Oxygen 30 01/29/25 08:00 01/29/25 08:00 01/29/25 08:00 Temperature 99 F Pulse Rate 56 L 66 Respiratory Rate 20 20 Blood Pressure 83/68 L Pulse Oximetry 96 Oxygen Delivery Fraction of Inspired Oxygen 30 01/29/25 08:24 01/29/25 08:41 01/29/25 09:00 Temperature 99 F Pulse Rate 56 L 56 L 67 Respiratory Rate 20 Blood Pressure 83/68 L 101/87 Pulse Oximetry 97 97 Oxygen Delivery Mechanical Ventilation Fraction of Inspired Oxygen 30 Intake/Output Intake/Output: Intake & Output 01/26/25 01/27/25 01/28/25 01/29/25 23:59 23:59 23:59 23:59 Intake Total 3351.9 2100.4 2672.6 1193.3 Output Total 425 3025 1950 1025 Balance 2926.9 -924.6 722.6 168.3 Meds/Results Medications: Active Medications Generic Name Dose Route Start Last Admin Trade Name Freq PRN Reason Stop Dose Admin Acetaminophen 650 mg 01/28/25 10:07 01/28/25 16:14 Acetaminophen Elixir 325 Mg/10.15 Ml Udc PO 650 mg Q6H PRN Administration Mild Pain (1-3) or Fever Albuterol/Ipratropium 3 ml 01/24/25 02:00 01/29/25 07:31 Ipratropium 0.5 Mg/Albuterol Sulfate 2.5 Mg (Base) Ampul.Neb 3 Ml INHALATION 3 ml Q6HRT JOCELYNE Administration Amlodipine Besylate 10 mg 01/28/25 09:00 01/28/25 09:23 Amlodipine Besylate 10 Mg Tablet PO 10 mg On Hold: 01/29/25 07:44 DAILY JOCELYNE Administration Aspirin 81 mg 01/24/25 12:00 01/29/25 08:42 Aspirin 81 Mg Enteric Tablet PO 81 mg QAM JOCELYNE Administration Atorvastatin Calcium 80 mg 01/24/25 21:00 01/28/25 20:03 Atorvastatin 40 Mg Tablet PO 80 mg QHS JOCELYNE Administration Carvedilol 3.125 mg 01/24/25 21:00 Carvedilol 3.125 Mg Tablet PO On Hold: 01/24/25 21:00 Q12HR JOCELYNE Empagliflozin 10 mg 01/27/25 09:00 01/29/25 08:42 Empagliflozin 10 Mg Tablet PO 10 mg DAILY JOCELYNE Administration Heparin Sodium (Porcine) 4,000 units 01/23/25 17:10 01/28/25 06:13 Heparin Sodium 5,000 Units/Ml Vial IV PUSH 4,000 units PRN PRN Administration aPTT less than 55 seconds Heparin Sodium (Porcine) 4,000 units 01/23/25 17:10 Heparin Sodium 5,000 Units/Ml Vial IV PUSH PRN PRN aPTT 55 - 70 seconds Hydralazine HCl 20 mg 01/27/25 19:40 01/28/25 21:15 Hydralazine Hcl 20 Mg/Ml Vial IV PUSH 20 mg Q4HR PRN Administration SBP > 160 Heparin Sodium/Dextrose 25,000 units in 250 mls @ 9 mls/hr 01/23/25 17:10 01/29/25 06:00 Heparin Sodium/D5w 100 Units/Ml IV CONT 900 units/hr .Q24H JOCELYNE 9 mls/hr Protocol Titration 900 UNITS/HR Piperacillin Sod/Tazobactam 50 mls @ 100 mls/hr 01/23/25 22:00 01/29/25 05:10 Sod 3.375 gm/ Sodium Chloride IVPB 01/30/25 21:59 Infused Q6H JOCELYNE Infusion Lidocaine HCl/Dextrose 2 gm in 500 mls @ 22.5 mls/hr 01/24/25 13:30 01/29/25 08:24 Lidocaine In D5w 4 Mg/Ml IV CONT 1.5 mg/min .[id number] JOCELYNE 22.5 mls/hr 1.5 MG/MIN Administration Dexmedetomidine HCl 400 mcg in 100 mls @ 7.43 mls/hr 01/28/25 21:40 01/29/25 08:00 Precedex 400 Mcg/100 Ml IV CONT 0.2 mcg/kg/hr .[id number] JOCELYNE 7.43 mls/hr Protocol Titration 0.2 MCG/KG/HR Multi-Ingred Cream/Lotion/Oil/Oint 1 applic 01/24/25 09:00 01/29/25 08:43 Mineral Oil/White Petrolatum Ointment EACH EYE 1 applic Q12HR JOCELYNE Administration Pantoprazole Sodium 40 mg 01/24/25 09:00 01/29/25 08:42 Pantoprazole Sodium Iv 40 Mg Vial IV PUSH 40 mg DAILY JOCELYNE Administration Polyethylene Glycol 17 gm 01/27/25 10:14 Polyethylene Glycol 3350 17 Gm Powd.Pack PO QAM PRN Constipation Senna/Docusate Sodium 1 tab 01/27/25 21:00 01/28/25 20:03 Senna/Docusate Sodium Tablet PO 1 tab HS JOCELYNE Administration Sodium Chloride 10 ml 01/24/25 06:00 01/29/25 04:40 Central Line Flush IV PUSH 10 ml Q8HR JOCELYNE Administration Sodium Chloride 20 ml 01/23/25 22:48 Central Line Flush IV PUSH PRN PRN after blood draws Radiology Results: ITS Impressions Head CT 01/23/25 19:11 IMPRESSION: No acute intracranial hemorrhage or extra axial fluid collections. Bilateral mastoiditis. All CT scans at this facility are performed using low dose modulation techniques as appropriate to perform exam including the following: automated exposure control; use of iterative reconstruction technique; adjustment of the mA and/or kV according to patient size (this includes techniques or standardized protocols for targeted exams where dose is matched to indication/reason for exam). Chest/Abdomen/Pelvis CT 01/23/25 19:16 IMPRESSION: Bilateral lower lobe consolidation may represent pneumonia. No acute abdominal or pelvic findings. All CT scans at this facility are performed using low dose modulation techniques as appropriate to perform exam including the following: automated exposure control; use of iterative reconstruction technique; adjustment of the mA and/or kV according to patient size (this includes techniques or standardized protocols for targeted exams where dose is matched to indication/reason for exam). Venous Doppler Study 01/24/25 11:45 IMPRESSION: 1. No DVT either leg. Ankle Brachial Index 01/24/25 11:52 IMPRESSION: 1. Artery pressures and the pressures at the right and left brachial, posterior tibial and dorsalis pedis arteries were unable to be obtained likely due to markedly increased pressures with right and left great toe pressures of 212 and 214 mmHg respectively. Abdomen X-Ray 01/27/25 10:32 Impression: 1. No acute abnormality. Labs Labs: Laboratory Results - last 24 hr 01/28/25 01/28/25 01/28/25 12:16 18:36 18:45 WBC RBC Hgb Hct MCV MCH MCHC RDW Plt Count MPV Immature Gran % (Auto) Neut % (Auto) Lymph % (Auto) [place] % (Auto) Eos % (Auto) Baso % (Auto) Lymph # (Auto) [place] # (Auto) Eos # (Auto) Baso # (Auto) Abs Immat Gran (auto) Absolute Neuts (auto) Absolute Nucleated RBC Nucleated RBC % APTT 140.2 H 90.7 H Puncture Site ABG pH ABG pCO2 ABG pO2 ABG PO2/FiO2 Ratio ABG HCO3 ABG O2 Saturation ABG O2 Content ABG Base Excess A-a Gradient Oxyhemoglobin Carboxyhemoglobin Methemoglobin Reduced Hemoglobin Total Hemoglobin O2 Delivery Device O2 Liters/Min Minute Volume Vent Rate Vent Mode FiO2 Tidal Volume PEEP Peak Inspir Pressure Pressure Support Sodium Potassium Chloride Carbon Dioxide Anion Gap BUN Creatinine Estim Creat Clear Calc Estimated GFR Glucose POC Capillary Glucose 140 H Calcium Phosphorus Magnesium Total Bilirubin AST ALT Alkaline Phosphatase Total Protein Albumin 01/28/25 01/29/25 01/29/25 23:07 01:10 04:22 WBC RBC Hgb Hct MCV MCH MCHC RDW Plt Count MPV Immature Gran % (Auto) Neut % (Auto) Lymph % (Auto) [place] % (Auto) Eos % (Auto) Baso % (Auto) Lymph # (Auto) [place] # (Auto) Eos # (Auto) Baso # (Auto) Abs Immat Gran (auto) Absolute Neuts (auto) Absolute Nucleated RBC Nucleated RBC % APTT 93.4 H Puncture Site Left radial ABG pH 7.474 H ABG pCO2 30.9 L ABG pO2 87.2 ABG PO2/FiO2 Ratio 2.91 ABG HCO3 22.2 ABG O2 Saturation 97.2 ABG O2 Content 16.1 ABG Base Excess -0.7 A-a Gradient 90.4 Oxyhemoglobin 95.8 Carboxyhemoglobin 0.5 Methemoglobin 0.0 Reduced Hemoglobin 3.7 Total Hemoglobin 11.9 L O2 Delivery Device Ventilator O2 Liters/Min Not Reportable Minute Volume Not Reportable Vent Rate 18 Vent Mode Cmv FiO2 30 Tidal Volume 420 PEEP 8 Peak Inspir Pressure Not Reportable Pressure Support Not Reportable Sodium Potassium Chloride Carbon Dioxide Anion Gap BUN Creatinine Estim Creat Clear Calc Estimated GFR Glucose POC Capillary Glucose 142 H Calcium Phosphorus Magnesium Total Bilirubin AST ALT Alkaline Phosphatase Total Protein Albumin 01/29/25 04:43 WBC 11.3 H RBC 3.27 L Hgb 10.9 L Hct 33.2 L MCV 101.5 H MCH 33.3 MCHC 32.8 RDW 13.7 Plt Count 206 MPV 10.2 Immature Gran % (Auto) 0.4 Neut % (Auto) 67.4 Lymph % (Auto) 18.1 L [place] % (Auto) 13.2 H Eos % (Auto) 0.7 Baso % (Auto) 0.2 Lymph # (Auto) 2.04 [place] # (Auto) 1.5 H Eos # (Auto) 0.1 Baso # (Auto) 0.0 Abs Immat Gran (auto) 0.05 H Absolute Neuts (auto) 7.6 H Absolute Nucleated RBC 0.000 Nucleated RBC % 0.0 APTT 114.7 H Puncture Site ABG pH ABG pCO2 ABG pO2 ABG PO2/FiO2 Ratio ABG HCO3 ABG O2 Saturation ABG O2 Content ABG Base Excess A-a Gradient Oxyhemoglobin Carboxyhemoglobin Methemoglobin Reduced Hemoglobin Total Hemoglobin O2 Delivery Device O2 Liters/Min Minute Volume Vent Rate Vent Mode FiO2 Tidal Volume PEEP Peak Inspir Pressure Pressure Support Sodium 136 L Potassium 3.8 Chloride 103 Carbon Dioxide 30 Anion Gap 3 L BUN 20 Creatinine 1.33 H Estim Creat Clear Calc 65 Estimated GFR 52 L Glucose 134 H POC Capillary Glucose Calcium 9.2 Phosphorus 4.7 H Magnesium 1.9 Total Bilirubin 0.9 AST 56 ALT 34 Alkaline Phosphatase 61 Total Protein 5.9 L Albumin 3.1 L Quality VTE Prophylaxis VTE prophylaxis: pharmacologic ordered
[2025-01-29 11:27] LABS: Alveolar/Arterial O2 Gradient 91.1 mmHg; Arterial Blood Gas Pressure Support 5 cmH2O; Fractional Inspired Oxygen 30 %; HCO3 ABG 22.9 mEq/l (22.0-26.0); Oxygen Content ABG 15.6 %vol (16.0-22.0); Oxygen Saturation ABG 97.0 % (95.0-100.0); PCO2 ABG 32.5 mmHg (35.0-45.0); PO2 ABG 84.6 mmHg (80.0-100.0); PO2 FiO2 Ratio Arterial Blood 2.82 %; Site Drawn LEFT BRACHIAL
--- NOTE | 2025-01-29 11:37 | PM.PNCARD ---
Progress Note: A&P Assessment and Plan (1) Cardiac arrest with ventricular fibrillation: Code(s): I46.9 - Cardiac arrest, cause unspecified; I49.01 - Ventricular fibrillation Status: Acute (2) Chronic atrial fibrillation: Code(s): I48.20 - Chronic atrial fibrillation, unspecified Status: Acute (3) Paroxysmal atrial fibrillation: Code(s): I48.0 - Paroxysmal atrial fibrillation Status: Acute (4) Coronary artery disease involving [place] coronary artery of [place] heart without angina pectoris: Code(s): I25.10 - Atherosclerotic heart disease of [place] coronary artery without angina pectoris Status: Acute Plan VFib arrest status post ROSC now with SVT -cont wean sedation -continue lidocaine drip given concerns of ischemic electrical instability -cont metoprolol low dose 25 mg BID NSTEMI s/p LHC with multivessel CAD heparin ASA Statin Chronic atrial fibrillation status post ablation -Eliquis on hold -continue heparin drip -home amiodarone on hold Moderate aortic stenosis -CTS consultation given his severe multivessel obstructive CAD Subjective Date/time seen: 01/29/25 11:37 Interval history: Follow up NSTEMI Tel: NSR No acute events Review of Systems Review of Systems: All systems reviewed & are unremarkable except as noted in HPI and below Exam Const: Other: Intubated and sedated HENMT: Mouth: Yes moist mucous membranes Eyes: EOM: EOMs intact bilaterally Neck: Neck: no JVD Resp: Effort & Inspection: normal respiratory effort Auscultation: clear to auscultation bilaterally Cardio: Rate: regular rate Rhythm: regular rhythm GI: GI Palp: Yes Soft to palpation Extrem: General: no pedal edema Objective Data Vital Signs Vital Signs: Vital Signs - 24 hr 01/28/25 12:00 01/28/25 12:00 01/28/25 12:00 Temperature 37.8 C H Pulse Rate 68 68 70 Respiratory Rate 16 Blood Pressure 151/89 H 151/89 H Pulse Oximetry 97 Oxygen Delivery Fraction of Inspired Oxygen 01/28/25 12:00 01/28/25 12:00 01/28/25 13:00 Temperature 37.8 C H Pulse Rate 68 Respiratory Rate 18 Blood Pressure 156/76 H Pulse Oximetry 98 98 Oxygen Delivery Mechanical Ventilation Fraction of Inspired Oxygen 30 01/28/25 14:00 01/28/25 14:00 01/28/25 14:00 Temperature 37.7 C H Pulse Rate 66 66 66 Respiratory Rate 18 Blood Pressure 123/79 123/79 Pulse Oximetry 97 Oxygen Delivery Fraction of Inspired Oxygen 01/28/25 14:02 01/28/25 14:04 01/28/25 14:11 Temperature Pulse Rate 65 64 65 Respiratory Rate 18 20 Blood Pressure Pulse Oximetry 97 Oxygen Delivery Mechanical Ventilation Fraction of Inspired Oxygen 30 01/28/25 15:00 01/28/25 16:00 01/28/25 16:00 Temperature 37.7 C H 37.7 C H Pulse Rate 66 70 70 Respiratory Rate 15 24 H Blood Pressure 132/84 159/64 H 152/56 H Pulse Oximetry 98 98 Oxygen Delivery Fraction of Inspired Oxygen 01/28/25 16:00 01/28/25 16:00 01/28/25 16:00 Temperature Pulse Rate 70 Respiratory Rate Blood Pressure Pulse Oximetry 98 Oxygen Delivery Mechanical Ventilation Fraction of Inspired Oxygen 30 01/28/25 16:14 01/28/25 16:41 01/28/25 17:00 Temperature 37.7 C H 37.7 C H Pulse Rate 65 64 Respiratory Rate 17 Blood Pressure 156/86 H Pulse Oximetry 96 97 Oxygen Delivery Mechanical Ventilation Fraction of Inspired Oxygen 30 01/28/25 17:31 01/28/25 18:00 01/28/25 18:00 Temperature 37.6 C H 37.6 C H Pulse Rate 64 64 Respiratory Rate 17 Blood Pressure 141/86 H Pulse Oximetry 97 Oxygen Delivery Fraction of Inspired Oxygen 01/28/25 18:00 01/28/25 19:00 01/28/25 19:29 Temperature 37.6 C H Pulse Rate 62 62 63 Respiratory Rate 18 Blood Pressure 158/67 H 153/86 H Pulse Oximetry 97 97 Oxygen Delivery Mechanical Ventilation Fraction of Inspired Oxygen 30 01/28/25 19:29 01/28/25 19:59 01/28/25 20:00 Temperature 37.6 C H Pulse Rate 63 64 Respiratory Rate 23 H 18 Blood Pressure 137/75 Pulse Oximetry 97 Oxygen Delivery Fraction of Inspired Oxygen 30 01/28/25 20:00 01/28/25 20:00 01/28/25 20:00 Temperature Pulse Rate 66 66 Respiratory Rate Blood Pressure 137/75 Pulse Oximetry 97 Oxygen Delivery Mechanical Ventilation Fraction of Inspired Oxygen 30 01/28/25 20:03 01/28/25 21:10 01/28/25 21:30 Temperature 37.6 C H Pulse Rate 66 65 66 Respiratory Rate 18 Blood Pressure 181/149 H 146/136 H Pulse Oximetry 97 Oxygen Delivery Fraction of Inspired Oxygen 01/28/25 21:46 01/28/25 22:00 01/28/25 22:00 Temperature 37.6 C H Pulse Rate 69 71 71 Respiratory Rate 19 18 Blood Pressure 143/118 H Pulse Oximetry 97 Oxygen Delivery Fraction of Inspired Oxygen 01/28/25 22:00 01/28/25 22:16 01/28/25 22:40 Temperature Pulse Rate 71 73 67 Respiratory Rate 18 Blood Pressure 143/118 H Pulse Oximetry 96 Oxygen Delivery Mechanical Ventilation Fraction of Inspired Oxygen 30 01/28/25 23:05 01/28/25 23:08 01/29/25 00:00 Temperature 37.8 C H 37.9 C H Pulse Rate 60 60 52 L Respiratory Rate 18 18 20 Blood Pressure 123/64 128/88 Pulse Oximetry 95 95 Oxygen Delivery Fraction of Inspired Oxygen 01/29/25 00:00 01/29/25 00:00 01/29/25 00:00 Temperature Pulse Rate 52 L Respiratory Rate 20 Blood Pressure Pulse Oximetry 95 Oxygen Delivery Mechanical Ventilation Fraction of Inspired Oxygen 30 30 01/29/25 00:00 01/29/25 00:00 01/29/25 00:35 Temperature Pulse Rate 56 L 53 L 44 L Respiratory Rate 18 Blood Pressure 128/88 Pulse Oximetry Oxygen Delivery Fraction of Inspired Oxygen 01/29/25 01:00 01/29/25 01:03 01/29/25 01:58 Temperature 37.8 C H Pulse Rate 42 L 42 L 55 L Respiratory Rate 19 19 18 Blood Pressure 93/58 L Pulse Oximetry 96 Oxygen Delivery Fraction of Inspired Oxygen 01/29/25 02:00 01/29/25 02:00 01/29/25 02:00 Temperature 37.5 C Pulse Rate 54 L 54 L 54 L Respiratory Rate 18 Blood Pressure 139/77 139/77 Pulse Oximetry 97 Oxygen Delivery Fraction of Inspired Oxygen 01/29/25 02:14 01/29/25 02:23 01/29/25 02:23 Temperature Pulse Rate 55 L 53 L 53 L Respiratory Rate 18 21 H Blood Pressure Pulse Oximetry 97 Oxygen Delivery Mechanical Ventilation Fraction of Inspired Oxygen 30 01/29/25 02:57 01/29/25 03:00 01/29/25 03:29 Temperature 37.4 C Pulse Rate 42 L 41 L 39 L Respiratory Rate 18 18 18 Blood Pressure 86/55 L Pulse Oximetry 94 Oxygen Delivery Fraction of Inspired Oxygen 01/29/25 04:00 01/29/25 04:00 01/29/25 04:00 Temperature 37.3 C Pulse Rate 43 L 46 L Respiratory Rate 18 Blood Pressure 115/69 Pulse Oximetry 95 95 Oxygen Delivery Mechanical Ventilation Fraction of Inspired Oxygen 30 01/29/25 04:00 01/29/25 04:00 01/29/25 05:00 Temperature 37.1 C Pulse Rate 46 L 50 L Respiratory Rate 19 Blood Pressure 115/69 104/58 L Pulse Oximetry 97 Oxygen Delivery Fraction of Inspired Oxygen 30 01/29/25 05:02 01/29/25 05:02 01/29/25 05:55 Temperature Pulse Rate 50 L 50 L 50 L Respiratory Rate 19 19 Blood Pressure Pulse Oximetry 97 Oxygen Delivery Mechanical Ventilation Fraction of Inspired Oxygen 30 01/29/25 06:00 01/29/25 06:00 01/29/25 06:00 Temperature 37.1 C Pulse Rate 50 L 50 L 50 L Respiratory Rate 17 17 Blood Pressure 124/72 Pulse Oximetry 98 Oxygen Delivery Fraction of Inspired Oxygen 01/29/25 06:00 01/29/25 07:00 01/29/25 07:32 Temperature 37.2 C Pulse Rate 50 L 48 L 50 L Respiratory Rate 18 24 H Blood Pressure 124/72 120/73 Pulse Oximetry 96 Oxygen Delivery Fraction of Inspired Oxygen 01/29/25 07:38 01/29/25 07:39 01/29/25 07:41 Temperature Pulse Rate 50 L 50 L 56 L Respiratory Rate 23 H Blood Pressure 83/68 L Pulse Oximetry 98 Oxygen Delivery Mechanical Ventilation Fraction of Inspired Oxygen 30 01/29/25 08:00 01/29/25 08:00 01/29/25 08:00 Temperature Pulse Rate 56 L 56 L Respiratory Rate 23 H Blood Pressure Pulse Oximetry 97 Oxygen Delivery Mechanical Ventilation Fraction of Inspired Oxygen 30 30 01/29/25 08:00 01/29/25 08:00 01/29/25 08:24 Temperature 37.2 C Pulse Rate 56 L 66 56 L Respiratory Rate 20 20 Blood Pressure 83/68 L 83/68 L Pulse Oximetry 96 Oxygen Delivery Fraction of Inspired Oxygen 01/29/25 08:41 01/29/25 09:00 01/29/25 10:00 Temperature 37.2 C Pulse Rate 56 L 67 56 L Respiratory Rate 20 20 Blood Pressure 101/87 Pulse Oximetry 97 97 Oxygen Delivery Mechanical Ventilation Fraction of Inspired Oxygen 30 01/29/25 10:00 01/29/25 10:00 01/29/25 10:00 Temperature 37.3 C Pulse Rate 59 L 50 L 50 L Respiratory Rate 20 Blood Pressure 145/85 H 139/67 Pulse Oximetry 98 Oxygen Delivery Fraction of Inspired Oxygen 01/29/25 11:00 01/29/25 11:00 Temperature 37.3 C Pulse Rate 63 62 Respiratory Rate 20 Blood Pressure 121/66 Pulse Oximetry 95 95 Oxygen Delivery Mechanical Ventilation Fraction of Inspired Oxygen 30 Intake/Output Intake/Output: Intake & Output 01/26/25 01/27/25 01/28/25 01/29/25 23:59 23:59 23:59 23:59 Intake Total 3351.9 2100.4 2672.6 1244.2 Output Total 425 3025 1950 1025 Balance 2926.9 -924.6 722.6 219.2 Meds/Results Medications: Active Medications Generic Name Dose Route Start Last Admin Trade Name Freq PRN Reason Stop Dose Admin Acetaminophen 650 mg 01/28/25 10:07 01/28/25 16:14 Acetaminophen Elixir 325 Mg/10.15 Ml Udc PO 650 mg Q6H PRN Administration Mild Pain (1-3) or Fever Albuterol/Ipratropium 3 ml 01/24/25 02:00 01/29/25 07:31 Ipratropium 0.5 Mg/Albuterol Sulfate 2.5 Mg (Base) Ampul.Neb 3 Ml INHALATION 3 ml Q6HRT JOCELYNE Administration Amlodipine Besylate 10 mg 01/28/25 09:00 01/28/25 09:23 Amlodipine Besylate 10 Mg Tablet PO 10 mg On Hold: 01/29/25 07:44 DAILY JOCELYNE Administration Aspirin 81 mg 01/24/25 12:00 01/29/25 08:42 Aspirin 81 Mg Enteric Tablet PO 81 mg QAM JOCELYNE Administration Atorvastatin Calcium 80 mg 01/24/25 21:00 01/28/25 20:03 Atorvastatin 40 Mg Tablet PO 80 mg QHS JOCELYNE Administration Carvedilol 3.125 mg 01/24/25 21:00 Carvedilol 3.125 Mg Tablet PO On Hold: 01/24/25 21:00 Q12HR JOCELYNE Empagliflozin 10 mg 01/27/25 09:00 01/29/25 08:42 Empagliflozin 10 Mg Tablet PO 10 mg DAILY JOCELYNE Administration Heparin Sodium (Porcine) 4,000 units 01/23/25 17:10 01/28/25 06:13 Heparin Sodium 5,000 Units/Ml Vial IV PUSH 4,000 units PRN PRN Administration aPTT less than 55 seconds Heparin Sodium (Porcine) 4,000 units 01/23/25 17:10 Heparin Sodium 5,000 Units/Ml Vial IV PUSH PRN PRN aPTT 55 - 70 seconds Hydralazine HCl 20 mg 01/27/25 19:40 01/28/25 21:15 Hydralazine Hcl 20 Mg/Ml Vial IV PUSH 20 mg Q4HR PRN Administration SBP > 160 Heparin Sodium/Dextrose 25,000 units in 250 mls @ 9 mls/hr 01/23/25 17:10 01/29/25 06:00 Heparin Sodium/D5w 100 Units/Ml IV CONT 900 units/hr .Q24H JOCELYNE 9 mls/hr Protocol Titration 900 UNITS/HR Piperacillin Sod/Tazobactam 50 mls @ 100 mls/hr 01/23/25 22:00 01/29/25 10:17 Sod 3.375 gm/ Sodium Chloride IVPB 01/30/25 21:59 100 mls/hr Q6H JOCELYNE Administration Lidocaine HCl/Dextrose 2 gm in 500 mls @ 22.5 mls/hr 01/24/25 13:30 01/29/25 10:00 Lidocaine In D5w 4 Mg/Ml IV CONT 1.5 mg/min .[id number] JOCELYNE 22.5 mls/hr 1.5 MG/MIN Infusion Dexmedetomidine HCl 400 mcg in 100 mls @ 0 mls/hr 01/28/25 21:40 01/29/25 10:00 Precedex 400 Mcg/100 Ml IV CONT 0 mcg/kg/hr .Q0M JOCELYNE 0 mls/hr Protocol Titration 0 MCG/KG/HR Multi-Ingred Cream/Lotion/Oil/Oint 1 applic 01/24/25 09:00 01/29/25 08:43 Mineral Oil/White Petrolatum Ointment EACH EYE 1 applic Q12HR JOCELYNE Administration Pantoprazole Sodium 40 mg 01/24/25 09:00 01/29/25 08:42 Pantoprazole Sodium Iv 40 Mg Vial IV PUSH 40 mg DAILY JOCELYNE Administration Polyethylene Glycol 17 gm 01/27/25 10:14 Polyethylene Glycol 3350 17 Gm Powd.Pack PO QAM PRN Constipation Senna/Docusate Sodium 1 tab 01/27/25 21:00 01/28/25 20:03 Senna/Docusate Sodium Tablet PO 1 tab HS JOCELYNE Administration Sodium Chloride 10 ml 01/24/25 06:00 01/29/25 04:40 Central Line Flush IV PUSH 10 ml Q8HR JOCELYNE Administration Sodium Chloride 20 ml 01/23/25 22:48 Central Line Flush IV PUSH PRN PRN after blood draws Radiology Results: ITS Impressions Head CT 01/23/25 19:11 IMPRESSION: No acute intracranial hemorrhage or extra axial fluid collections. Bilateral mastoiditis. All CT scans at this facility are performed using low dose modulation techniques as appropriate to perform exam including the following: automated exposure control; use of iterative reconstruction technique; adjustment of the mA and/or kV according to patient size (this includes techniques or standardized protocols for targeted exams where dose is matched to indication/reason for exam). Chest/Abdomen/Pelvis CT 01/23/25 19:16 IMPRESSION: Bilateral lower lobe consolidation may represent pneumonia. No acute abdominal or pelvic findings. All CT scans at this facility are performed using low dose modulation techniques as appropriate to perform exam including the following: automated exposure control; use of iterative reconstruction technique; adjustment of the mA and/or kV according to patient size (this includes techniques or standardized protocols for targeted exams where dose is matched to indication/reason for exam). Venous Doppler Study 01/24/25 11:45 IMPRESSION: 1. No DVT either leg. Ankle Brachial Index 01/24/25 11:52 IMPRESSION: 1. Artery pressures and the pressures at the right and left brachial, posterior tibial and dorsalis pedis arteries were unable to be obtained likely due to markedly increased pressures with right and left great toe pressures of 212 and 214 mmHg respectively. Abdomen X-Ray 01/27/25 10:32 Impression: 1. No acute abnormality. Labs Labs: Laboratory Results - last 24 hr 01/28/25 01/28/25 01/28/25 12:16 18:36 18:45 WBC RBC Hgb Hct MCV MCH MCHC RDW Plt Count MPV Immature Gran % (Auto) Neut % (Auto) Lymph % (Auto) [place] % (Auto) Eos % (Auto) Baso % (Auto) Lymph # (Auto) [place] # (Auto) Eos # (Auto) Baso # (Auto) Abs Immat Gran (auto) Absolute Neuts (auto) Absolute Nucleated RBC Nucleated RBC % APTT 140.2 H 90.7 H Puncture Site ABG pH ABG pCO2 ABG pO2 ABG PO2/FiO2 Ratio ABG HCO3 ABG O2 Saturation ABG O2 Content ABG Base Excess A-a Gradient Oxyhemoglobin Carboxyhemoglobin Methemoglobin Reduced Hemoglobin Total Hemoglobin O2 Delivery Device O2 Liters/Min Minute Volume Vent Rate Vent Mode FiO2 Tidal Volume PEEP Peak Inspir Pressure Pressure Support Sodium Potassium Chloride Carbon Dioxide Anion Gap BUN Creatinine Estim Creat Clear Calc Estimated GFR Glucose POC Capillary Glucose 140 H Calcium Phosphorus Magnesium Total Bilirubin AST ALT Alkaline Phosphatase Total Protein Albumin 01/28/25 01/29/25 01/29/25 23:07 01:10 04:22 WBC RBC Hgb Hct MCV MCH MCHC RDW Plt Count MPV Immature Gran % (Auto) Neut % (Auto) Lymph % (Auto) [place] % (Auto) Eos % (Auto) Baso % (Auto) Lymph # (Auto) [place] # (Auto) Eos # (Auto) Baso # (Auto) Abs Immat Gran (auto) Absolute Neuts (auto) Absolute Nucleated RBC Nucleated RBC % APTT 93.4 H Puncture Site Left radial ABG pH 7.474 H ABG pCO2 30.9 L ABG pO2 87.2 ABG PO2/FiO2 Ratio 2.91 ABG HCO3 22.2 ABG O2 Saturation 97.2 ABG O2 Content 16.1 ABG Base Excess -0.7 A-a Gradient 90.4 Oxyhemoglobin 95.8 Carboxyhemoglobin 0.5 Methemoglobin 0.0 Reduced Hemoglobin 3.7 Total Hemoglobin 11.9 L O2 Delivery Device Ventilator O2 Liters/Min Not Reportable Minute Volume Not Reportable Vent Rate 18 Vent Mode Cmv FiO2 30 Tidal Volume 420 PEEP 8 Peak Inspir Pressure Not Reportable Pressure Support Not Reportable Sodium Potassium Chloride Carbon Dioxide Anion Gap BUN Creatinine Estim Creat Clear Calc Estimated GFR Glucose POC Capillary Glucose 142 H Calcium Phosphorus Magnesium Total Bilirubin AST ALT Alkaline Phosphatase Total Protein Albumin 01/29/25 01/29/25 04:43 11:19 WBC 11.3 H RBC 3.27 L Hgb 10.9 L Hct 33.2 L MCV 101.5 H MCH 33.3 MCHC 32.8 RDW 13.7 Plt Count 206 MPV 10.2 Immature Gran % (Auto) 0.4 Neut % (Auto) 67.4 Lymph % (Auto) 18.1 L [place] % (Auto) 13.2 H Eos % (Auto) 0.7 Baso % (Auto) 0.2 Lymph # (Auto) 2.04 [place] # (Auto) 1.5 H Eos # (Auto) 0.1 Baso # (Auto) 0.0 Abs Immat Gran (auto) 0.05 H Absolute Neuts (auto) 7.6 H Absolute Nucleated RBC 0.000 Nucleated RBC % 0.0 APTT 114.7 H Puncture Site Left brachial ABG pH 7.466 H ABG pCO2 32.5 L ABG pO2 84.6 ABG PO2/FiO2 Ratio 2.82 ABG HCO3 22.9 ABG O2 Saturation 97.0 ABG O2 Content 15.6 L ABG Base Excess -0.2 A-a Gradient 91.1 Oxyhemoglobin 94.9 Carboxyhemoglobin Methemoglobin Reduced Hemoglobin Total Hemoglobin 11.6 L O2 Delivery Device Ventilator O2 Liters/Min Not Reportable Minute Volume Not Reportable Vent Rate Not Reportable Vent Mode Spontaneous FiO2 30 Tidal Volume Not Reportable PEEP 5 Peak Inspir Pressure Not Reportable Pressure Support 5 Sodium 136 L Potassium 3.8 Chloride 103 Carbon Dioxide 30 Anion Gap 3 L BUN 20 Creatinine 1.33 H Estim Creat Clear Calc 65 Estimated GFR 52 L Glucose 134 H POC Capillary Glucose Calcium 9.2 Phosphorus 4.7 H Magnesium 1.9 Total Bilirubin 0.9 AST 56 ALT 34 Alkaline Phosphatase 61 Total Protein 5.9 L Albumin 3.1 L
[2025-01-29 12:19] LABS: Partial Thromboplastin Time 75.1 Seconds (22.3-36.8)
--- NOTE | 2025-01-29 13:14 | PC.NURSE ---
1250-Patient getting more and more agitated. Confused, trying to get out of bed. Reaching for things in the air. Tried to reorient him and calm him. Becoming diaphoretic. HR 103, repirations 35, o2 sat 80% on 2L/NC. Called for Dr. Goodson and placed patient on NRB mask. Precedex resumed at 0.2 mg/hr. Airvo placed at 50L/60%.
--- NOTE | 2025-01-29 13:26 | PC.NURSE ---
Jose Juan called at 1326. patient went into Vtach/Vfib rhythm. patient spontaneously converted to normal sinus rhythm. Jose Juan Canceled. patient reintubated.
--- NOTE | 2025-01-29 14:08 | WPDPROCEDUR ---
Procedures Intubation Intubation Date: 01/29/25 Intubation Time: 13:40 Consent: Emergency intubation as patient had V-tach, VFib. Hypoxia A pre-procedural Time-Out was completed immediately before starting the procedure and confirmed: Patient Identification, Site, Procedure, Patient Position and the Availability of Requisite Equipment: Yes Sedative: etomidate Paralytic: rocuronium Laryngoscope: fiber optic video scope Assist device used: fiber optic device ET tube size: 8 Tube secured depth (cm): 24 Tube secured location: lips Tube placement confirmation: visualized tube passing through cords, equal breath sounds bilaterally, no breath sounds over epigastrium and confirmation by capnometry Patient tolerated procedure: well and no complications Intubation complications: none
--- NOTE | 2025-01-29 14:11 | PM.EVENT ---
Event Note Event Note Event Note: 01/29: Patient was placed on SBT this morning, his RSBI was adequate, patient was awake, follows simple commands in all extremities, ABGs post SBT looked good, patient was extubated successfully. Did fell for a couple of hours, after which he got agitated, tachypneic, went into V-tach, VFib for a very short amount of time, patient had a pulse and no intervention was performed, patient was given lidocaine 100 mg x1 -patient was reintubated successfully -post intubation chest x-ray showed pulmonary edema -will increase PEEP to 10
[2025-01-29] MEDS: MIDAZOLAM 100MG/NS 100ML(*CRX) 100 MG/100 ML BAG IV CONT (14:22)
[2025-01-29] MEDS: FENTANYL 2,500MCG/NS250ML(*CRX 2,500 MCG/250 ML BAG IV CONT (14:22)
[2025-01-29] MEDS: ETOMIDATE 20 MG/10 ML AMPUL 30 MG IV PUSH (14:27)
[2025-01-29] MEDS: LIDOCAINE IV PUSH (14:27)
[2025-01-29] MEDS: ROCURONIUM BROMIDE 50 MG/5 ML VIAL 100 MG IV PUSH (14:29)
[2025-01-29 15:15] LABS: Alveolar/Arterial O2 Gradient 448.1 mmHg; Carboxyhemoglobin 0.6 % THb (0-2.0); Fractional Inspired Oxygen 100 %; HCO3 ABG 26.2 mEq/l (22.0-26.0); Methemoglobin ABG 0.4 %THb (0-1.5); Oxygen Content ABG 19.5 %vol (16.0-22.0); Oxygen Saturation ABG 99.4 % (95.0-100.0); PCO2 ABG 45.4 mmHg (35.0-45.0); PO2 ABG 219.5 mmHg (80.0-100.0); PO2 FiO2 Ratio Arterial Blood 2.19 %; Reduced Hemoglobin 0.7 %THb (0-5.0)
[2025-01-29] MEDS: ADENOSINE IV SOLN 6 MG/2 ML VIAL IV PUSH (15:15)
[2025-01-29 15:16] LABS: Arterial Blood Gas Tidal Volume 500 ml; Arterial Blood Gas Ventilator rate 20 /MIN; Modified Allen's Test Pass; Site Drawn LEFT RADIAL
[2025-01-29] MEDS: ADENOSINE IV SOLN 6 MG/2 ML VIAL 12 MG IV PUSH (15:20)
[2025-01-29] MEDS: MIDAZOLAM HCL (*CRX) 2 MG/2 ML VIAL 4 MG IV PUSH (15:44)
--- NOTE | 2025-01-29 16:37 | PM.EVENT ---
Event Note Event Note Event Note: 01/29/2025: Patient went into SVT with heart rates greater than 200, was given adenosine 6 mg and repeated the [place] 12 mg IV. Patient has slowed down was in AFib, was given amiodarone bolus 150 mg IV x1 and converted to sinus rhythm. -patient was not adequately sedated so give him Versed 4 mg IV x1, this seems to have helped with his blood pressure is, heart rate. oxygenation. -discussed with cardiology, recommended high-dose beta-nevin. Currently of held the beta-blockers due to his heart rates in the 60s and 70s and SBP in the 90s to 110s. -message was left on to patient's son Benedicto's phone
[2025-01-29] MEDS: HEPARIN SOD/D5W 100 UNITS/ML 25,000 UNITS/250 ML BAG 9 UNITS IV CONT (17:35)
[2025-01-29 18:21] LABS: Partial Thromboplastin Time 71.6 Seconds (22.3-36.8)
[2025-01-29] MEDS: ATORVASTATIN 40 MG TABLET 80 MG PO (20:01)
[2025-01-29] MEDS: SENNA/DOCUSATE SODIUM TABLET 1 TAB PO (20:01)
[2025-01-30] VITALS (51 sets, daily range): BP systolic 99–179; BP diastolic 51–84; PULSE 49–88; RESP 16–20; TEMP 37.3–38.1; O2SAT 91–100
[2025-01-30] MEDS: IPRATROPIUM 0.5 MG/ALBUTEROL SULFATE 2.5 MG (BASE) AMPUL.NEB 3 ML INHALATION ×4 (02:31→20:52)
[2025-01-30] MEDS: PIPERACILLIN/TAZOBACTAM SOD 3.375 GM in SODIUM CHLORIDE 0.9% IV 50 ML 100 ML IVPB ×2 (04:48→10:56)
[2025-01-30] MEDS: CENTRAL LINE FLUSH 10 ML IV PUSH ×3 (04:49→20:10)
[2025-01-30 05:05] LABS: Alveolar/Arterial O2 Gradient 242.3 mmHg; Carboxyhemoglobin 0.8 % THb (0-2.0); Fractional Inspired Oxygen 50 %; HCO3 ABG 25.8 mEq/l (22.0-26.0); Methemoglobin ABG 0.0 %THb (0-1.5); Oxygen Content ABG 20.8 %vol (16.0-22.0); Oxygen Saturation ABG 96.3 % (95.0-100.0); PCO2 ABG 34.0 mmHg (35.0-45.0); PO2 ABG 76.0 mmHg (80.0-100.0); PO2 FiO2 Ratio Arterial Blood 1.52 %; Reduced Hemoglobin 4.9 %THb (0-5.0)
[2025-01-30 05:06] LABS: Arterial Blood Gas Tidal Volume 500 ml; Arterial Blood Gas Ventilator rate 20 /MIN; Modified Allen's Test Unable to perform; Site Drawn LEFT RADIAL
[2025-01-30 05:32] LABS: Hematocrit 33.6 % (42.0-52.0); Hemoglobin 11.1 g/dL (14.0-18.0); Immature Granulocyte Percent A 0.8 % (0-0.5); Lymphocytes Absolute Auto 3.50 K/mm3 (0.9-3.2); Mean Corpuscular HGB Conc 33.0 g/dl (32-36); Mean Corpuscular Hemoglobin 33.8 pg (26-34); Mean Corpuscular Volume 102.4 fl (80-100); Nucleated Red Blood Cells Absolute Auto 0.000 K/mm3 (0.0-0.012); Nucleated Red Blood Cells Perc 0.0 % (0.0-0.2); Platelet Count Result 234 k/mm3 (150-375); Red Blood Count 3.28 M/mm3 (4.6-6.20); White Blood Count 10.2 K/mm3 (4.5-10.0)
[2025-01-30 05:42] LABS: Alanine Aminotransferase 50 U/L (6-50); Albumin Level 3.0 g/dL (3.5-5.1); Alkaline Phosphatase 74 U/L (38-126); Anion Gap 3 mmol/L (4-12); Aspartate Amino Transferase 86 U/L (17-59); Bilirubin,Total 0.8 mg/dL (0.2-1.3); Blood Urea Nitrogen 27 mg/dL (9-20); Calcium 8.9 mg/dL (8.4-10.2); Carbon Dioxide 29 mmol/L (22-30); Chloride 105 mmol/L (98-107); Estimated CRCL calculation 60 ml/min; Estimated Glomerular Filt Rate 47; Glucose 138 mg/dL (65-110); Magnesium 1.9 mg/dL (1.6-2.3); Potassium 3.1 mmol/L (3.4-5.0); Sodium 137 mmol/L (137-145); Total Protein 5.9 g/dL (6.3-8.2)
[2025-01-30 05:43] LABS: Partial Thromboplastin Time 75.3 Seconds (22.3-36.8)
[2025-01-30] MEDS: FENTANYL 2,500MCG/NS250ML(*CRX 2,500 MCG/250 ML BAG 10 MCG IV CONT (06:28)
[2025-01-30] MEDS: PANTOPRAZOLE SODIUM IV 40 MG VIAL IV PUSH (08:45)
[2025-01-30] MEDS: ASPIRIN 81 MG CHEWABLE TABLET PO (08:45)
[2025-01-30] MEDS: POTASSIUM CHLORIDE 20 MEQ PACKET (FOR LIQUID) 40 MEQ PO (08:45)
[2025-01-30] MEDS: KCL 40 MEQ/WATER 100 ML 100 ML 25 ML IVPB (08:45)
[2025-01-30] MEDS: EMPAGLIFLOZIN 10 MG TABLET PO (08:45)
[2025-01-30] MEDS: LIDOCAINE 1% PF INJ 5 ML VIAL INFILTRATE (08:48)
[2025-01-30] MEDS: BUMETANIDE INJ 1 MG/4 ML VIAL IV PUSH (08:57)
[2025-01-30] MEDS: MINERAL OIL/WHITE PETROLATUM OINTMENT 1 APPLIC EACH EYE ×2 (08:57→20:10)
[2025-01-30] MEDS: ENOXAPARIN 40 MG/0.4 ML SYRINGE SUB-Q (10:58)
--- NOTE | 2025-01-30 11:20 | PCFNICU ---
ICU Rounding Note: Pt current nutrition is Vital 1.2 @ 65 ml/h with flushes 30 ml q 4 hours. Nutrition recommendation: No new recommendations. COntinue current nutrition care plan and orders. Agree with orders. Last recorded weight is 160.3 kg. Bowel Motility: +1 BM 01/30 Labs Reviewed: Hgb 11.1, Hct 33.6, Alb 3.0, K+ 3.1, BUN 27, Cre 1.46, Glu 138 Meds Noted: Miralax, senna, versed, protonix, fentanyl Skin: No skin breakdown Additional Notes: Pt continues on vent with tube feeding Vital 1.2 @ 65 ml/h to provide 1716 kcal, 107 g protein, 1160 ml free water. Pt was extubated and re-intubated yesterday. Maybe transferring to another hospital for cardiac. Tube feeding is adequate for needs at this time. Continue current orders. Following daily in ICU rounds. Will monitor weight, labs, skin, diet orders, meds every Thursday and Thursday. .
--- NOTE | 2025-01-30 14:28 | WPDINTPN2 ---
Assessment and Plan Assessment and Plan (1) Encephalopathy: Code(s): G93.40 - Encephalopathy, unspecified Status: Acute Assessment and Plan: Post cardiac arrest encephalopathy, status post trach get temperature manage -off all sedation since 01/27/2025 at 8:00 a.m. -opens eyes, tracks, nods to questions, follows simple commands with upper extremities, moves lower extremities spontaneous -patient is hard of hearing -01/29: off all sedation,patient was following commands in upper and lower extremities -01/30: patient is awake, does not follow commands as he is sedated (2) Acute respiratory failure: Code(s): J96.00 - Acute respiratory failure, unspecified whether with hypoxia or hypercapnia Status: Acute Assessment and Plan: Acute respiratory failure likely related to cardiac arrest. Also pulmonary edema, pneumonia as seen on CT chest -intubated on 01/23/2025 - 01/29/2025: Extubated only to be intubated because he went into SVT, in V-tach/brief VFib, altered mental status, respiratory distress -01/29: Re-intubated for the reasons above. chest x-ray post intubation showed flash pulmonary edema -01/30: continue CMV mode of ventilation, peep of 8, 50% FiO2, will wean FiO2 to maintain O2 sats> 92% - currently sedated with fentanyl and Versed infusion - maintain RASS of 0 to -2 (3) Cardiac arrest with ventricular fibrillation: Code(s): I46.9 - Cardiac arrest, cause unspecified; I49.01 - Ventricular fibrillation Status: Acute Assessment and Plan: 01/23: Patient presented the ED with dizziness and nausea. While he was in the ER waiting room, went unresponsive, was in VFib arrest -status post VFib cardiac arrest, requiring defibrillation x1, epinephrine x1 and CPR before ROSC. 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 01/28: Patient went into SVT on early this morning with V-tach, converted to sinus rhythm with metoprolol 5 mg IV x1. Increased lidocaine to 1.5 mg/min. Discuss with cardiology will add metoprolol 25 mg p.o. q.12 hours 01/29: post extubation patient went into SVT For which he was given adenosine 6 mg and 12 mg., Nonsustained V-tach and brief V fib, post intubation patient converted to sinus rhythm with PVCs, lidocaine was increased to 2 mg/min. discussed with Dr. Fraga. 01/30: discussed with cardiology, patient will need to be transferred to higher level of care for high-risk PCI or CABG as once he was extubated went into flash pulmonary edema likely related to multivessel disease and arrhythmia (4) Mixed hyperlipidemia: Code(s): E78.2 - Mixed hyperlipidemia Status: Acute Assessment and Plan: Contain atorvastatin (5) Chronic atrial fibrillation: Code(s): I48.20 - Chronic atrial fibrillation, unspecified Status: Acute Assessment and Plan: Currently in ventricular bigeminy, will hold amiodarone infusion -hold Coreg - patient has been on heparin infusion since admission. 01/30: Patient has been having increasing bloody secretions from the ET tube. Discussed with Cardiology regarding holding heparin infusion for now, Cardiology is agreeable. Plan DVT prophylaxis: prophylactic Lovenox SQ starting 01/31/2025 Stress ulcer prophylaxis: Protonix Nutrition: Tolerating tube feeds Code Status: Full code Critical Care Time Spent: 32 minutes Due to a high probability of clinically significant, life threatening deterioration, the patient required my highest level of preparedness to intervene emergently and I personally spent this critical care time directly and personally managing the patient. This critical care time included obtaining a history; examining the patient; pulse oximetry; ordering and review of studies; arranging urgent treatment with development of a management plan; evaluation of patient's response to treatment; frequent reassessment; and discussions with other providers. It was exclusive of separately billable procedures and treating other patients and teaching time. Please see Assessment and Plan section and the rest of the note for further information on patient assessment and treatment This dictation may have been done utilizing a voice recognition system. Attempts have been made to correct errors. However, there may be uncorrected grammatical, spelling, and recognitions errors present. Subjective Date/time seen: 01/30/25 14:28 Interval history: Reason for consult: Cardiac arrest, ventricular fibrillation, respiratory failure post cardiac arrest, presented with dizziness along with nausea to the ER on 01/23/2025 01/23/2025: Intubated post arrest 01/29/2025: Extubated only to be intubated as he went to an to flash pulmonary edema with SVT, V-tach in brief VFib. 01/30/2025: Patient seen examined the ICU, remains intubated on CMV mode of ventilation, peep of 8, 50% FiO2. Sedated with fentanyl Versed infusion, opens his eyes, moves his head from side to side, does not follow simple commands. hemodynamically stable, remains on heparin and lidocaine infusion. Urine output has been adequate, patient is afebrile, hemodynamically stable patient has had blood from his ET tube, on heparin infusion Review of Systems Review of Systems: ROS unobtainable: Yes unobtainable due to endotracheal tube, unobtainable due to medical condition and unobtainable due to mental status Exam Narrative: General: Intubated, not in any distress HEENT:? Pupils equal and reactive, sclera is clear, ETT in place Neck:? Supple Respiratory:? Coarse breath sounds bilaterally, decreased at bases, no wheeze Cardiac:? Sinus rhythm, rate controlled Abdomen:? Soft, nontender, nondistended, hypoactive bowel sounds Extremities:? Trace edema bilaterally, palpable pulses. Ruptured blisters noted on the right hand, edematous currently in a splint and Heber wrap Neuro:? Patient is intubated, sedated, opens his eyes does not follow simple commands, moves all extremities spontaneously Skin:? No lesions noted Psych:? Unable to assess at this time Objective Data Vital Signs Vital Signs: Vital Signs - 24 hr 01/29/25 14:44 01/29/25 15:00 01/29/25 15:00 Temperature 99.5 F Pulse Rate 96 160 H 104 H Respiratory Rate 20 20 Blood Pressure 227/107 H 210/116 H Pulse Oximetry 99 Oxygen Delivery Fraction of Inspired Oxygen 01/29/25 15:30 01/29/25 15:30 01/29/25 15:44 Temperature Pulse Rate 166 H 166 H 166 H Respiratory Rate 22 H 22 H Blood Pressure 215/195 H Pulse Oximetry Oxygen Delivery Fraction of Inspired Oxygen 01/29/25 16:00 01/29/25 16:00 01/29/25 16:00 Temperature Pulse Rate 74 74 Respiratory Rate 20 Blood Pressure Pulse Oximetry 100 Oxygen Delivery Mechanical Ventilation Fraction of Inspired Oxygen 100 100 01/29/25 16:00 01/29/25 16:00 01/29/25 16:00 Temperature 98.8 F Pulse Rate 74 64 64 Respiratory Rate 20 20 20 Blood Pressure 118/67 Pulse Oximetry 100 Oxygen Delivery Fraction of Inspired Oxygen 01/29/25 16:23 01/29/25 16:54 01/29/25 17:00 Temperature 98.5 F Pulse Rate 99 64 61 Respiratory Rate 20 Blood Pressure 98/65 L 89/63 L Pulse Oximetry 99 100 Oxygen Delivery Mechanical Ventilation Fraction of Inspired Oxygen 80 01/29/25 18:00 01/29/25 18:00 01/29/25 18:00 Temperature Pulse Rate 61 61 61 Respiratory Rate 20 Blood Pressure 90/61 L Pulse Oximetry Oxygen Delivery Fraction of Inspired Oxygen 01/29/25 18:00 01/29/25 18:00 01/29/25 19:00 Temperature 98.4 F 98.5 F Pulse Rate 61 54 L 55 L Respiratory Rate 20 20 20 Blood Pressure 95/58 L 100/58 L Pulse Oximetry 100 100 Oxygen Delivery Fraction of Inspired Oxygen 01/29/25 19:48 01/29/25 19:52 01/29/25 20:00 Temperature 98.8 F Pulse Rate 56 L Respiratory Rate 20 Blood Pressure 99/59 L Pulse Oximetry 100 100 Oxygen Delivery Mechanical Ventilation Fraction of Inspired Oxygen 100 01/29/25 20:00 01/29/25 20:00 01/29/25 20:00 Temperature Pulse Rate 56 L 56 L 56 L Respiratory Rate 20 20 Blood Pressure 99/59 L Pulse Oximetry Oxygen Delivery Fraction of Inspired Oxygen 01/29/25 20:00 01/29/25 21:00 01/29/25 21:06 Temperature 99.4 F Pulse Rate 55 L 55 L 54 L Respiratory Rate 20 20 Blood Pressure 97/55 L Pulse Oximetry 100 Oxygen Delivery Fraction of Inspired Oxygen 01/29/25 21:06 01/29/25 21:11 01/29/25 22:00 Temperature Pulse Rate 54 L 54 L 60 Respiratory Rate 20 Blood Pressure Pulse Oximetry 100 Oxygen Delivery Mechanical Ventilation Fraction of Inspired Oxygen 80 01/29/25 22:00 01/29/25 22:00 01/29/25 22:00 Temperature 99.8 F H Pulse Rate 60 60 60 Respiratory Rate 20 20 Blood Pressure 104/54 L 104/54 L Pulse Oximetry 100 Oxygen Delivery Fraction of Inspired Oxygen 01/29/25 22:00 01/29/25 22:09 01/29/25 23:00 Temperature 100.3 F H Pulse Rate 60 56 L Respiratory Rate 20 20 Blood Pressure 101/56 L Pulse Oximetry 100 Oxygen Delivery Fraction of Inspired Oxygen 60 01/29/25 23:11 01/30/25 00:00 01/30/25 00:00 Temperature Pulse Rate 63 51 L Respiratory Rate Blood Pressure Pulse Oximetry 94 Oxygen Delivery Mechanical Ventilation Fraction of Inspired Oxygen 60 60 01/30/25 00:00 01/30/25 00:00 01/30/25 00:00 Temperature Pulse Rate 52 L 52 L Respiratory Rate 20 Blood Pressure 121/61 Pulse Oximetry 100 Oxygen Delivery Mechanical Ventilation Fraction of Inspired Oxygen 01/30/25 00:00 01/30/25 00:00 01/30/25 01:00 Temperature 100.5 F H 100.6 F H Pulse Rate 52 L 50 L 52 L Respiratory Rate 20 20 20 Blood Pressure 99/54 L 121/61 Pulse Oximetry 100 97 Oxygen Delivery Fraction of Inspired Oxygen 01/30/25 01:46 01/30/25 01:47 01/30/25 02:00 Temperature 100.6 F H Pulse Rate 53 L 54 L 51 L Respiratory Rate 20 20 20 Blood Pressure 110/57 L Pulse Oximetry 97 Oxygen Delivery Fraction of Inspired Oxygen 01/30/25 02:00 01/30/25 02:00 01/30/25 02:00 Temperature Pulse Rate 51 L 51 L 51 L Respiratory Rate 20 Blood Pressure 110/57 L 110/57 L Pulse Oximetry Oxygen Delivery Fraction of Inspired Oxygen 01/30/25 02:00 01/30/25 02:00 01/30/25 02:31 Temperature Pulse Rate 51 L 51 L 49 L Respiratory Rate 20 20 Blood Pressure Pulse Oximetry Oxygen Delivery Fraction of Inspired Oxygen 01/30/25 02:32 01/30/25 02:38 01/30/25 03:00 Temperature 100.5 F H Pulse Rate 51 L 49 L 53 L Respiratory Rate 20 20 Blood Pressure 115/57 L Pulse Oximetry 98 96 Oxygen Delivery Mechanical Ventilation Fraction of Inspired Oxygen 60 01/30/25 04:00 01/30/25 04:00 01/30/25 04:00 Temperature Pulse Rate 52 L 52 L 52 L Respiratory Rate 20 20 Blood Pressure 118/57 L Pulse Oximetry Oxygen Delivery Fraction of Inspired Oxygen 01/30/25 04:00 01/30/25 04:00 01/30/25 04:00 Temperature Pulse Rate 53 L Respiratory Rate Blood Pressure Pulse Oximetry 92 Oxygen Delivery Mechanical Ventilation Fraction of Inspired Oxygen 50 50 01/30/25 04:00 01/30/25 05:00 01/30/25 05:05 Temperature 100.3 F H 100.1 F H Pulse Rate 52 L 53 L 51 L Respiratory Rate 20 20 Blood Pressure 118/57 L 144/72 H Pulse Oximetry 94 92 96 Oxygen Delivery Mechanical Ventilation Fraction of Inspired Oxygen 50 01/30/25 06:00 01/30/25 06:00 01/30/25 06:00 Temperature 99.9 F H Pulse Rate 53 L 53 L 53 L Respiratory Rate 20 20 Blood Pressure 129/61 Pulse Oximetry 94 Oxygen Delivery Fraction of Inspired Oxygen 01/30/25 06:00 01/30/25 06:00 01/30/25 06:28 Temperature Pulse Rate 53 L 53 L 52 L Respiratory Rate 20 20 Blood Pressure 129/61 Pulse Oximetry Oxygen Delivery Fraction of Inspired Oxygen 01/30/25 06:28 01/30/25 07:00 01/30/25 07:33 Temperature 99.8 F H Pulse Rate 52 L 53 L 54 L Respiratory Rate 20 20 Blood Pressure 103/61 Pulse Oximetry 94 97 Oxygen Delivery Mechanical Ventilation Fraction of Inspired Oxygen 50 01/30/25 07:35 01/30/25 07:41 01/30/25 07:45 Temperature Pulse Rate 52 L 52 L 51 L Respiratory Rate 20 20 20 Blood Pressure Pulse Oximetry Oxygen Delivery Fraction of Inspired Oxygen 01/30/25 08:00 01/30/25 08:00 01/30/25 08:00 Temperature Pulse Rate 53 L 53 L 53 L Respiratory Rate 20 20 Blood Pressure 120/63 Pulse Oximetry Oxygen Delivery Fraction of Inspired Oxygen 01/30/25 08:00 01/30/25 08:00 01/30/25 08:00 Temperature 99.8 F H Pulse Rate 52 L 53 L Respiratory Rate 20 Blood Pressure 120/63 Pulse Oximetry 95 Oxygen Delivery Mechanical Ventilation Fraction of Inspired Oxygen 01/30/25 08:00 01/30/25 08:53 01/30/25 09:00 Temperature 99.6 F Pulse Rate 54 L 54 L Respiratory Rate 16 Blood Pressure 126/59 L Pulse Oximetry 95 95 Oxygen Delivery Mechanical Ventilation Fraction of Inspired Oxygen 50 50 01/30/25 09:01 01/30/25 10:00 01/30/25 10:00 Temperature Pulse Rate 54 L 52 L 52 L Respiratory Rate 16 16 Blood Pressure 114/59 L Pulse Oximetry Oxygen Delivery Fraction of Inspired Oxygen 01/30/25 10:00 01/30/25 10:00 01/30/25 10:00 Temperature 99.4 F Pulse Rate 52 L 53 L 54 L Respiratory Rate 16 16 Blood Pressure 114/59 L Pulse Oximetry 95 Oxygen Delivery Fraction of Inspired Oxygen 01/30/25 11:00 01/30/25 11:16 01/30/25 11:28 Temperature 99.4 F Pulse Rate 53 L 68 70 Respiratory Rate 16 18 19 Blood Pressure 129/62 Pulse Oximetry 94 Oxygen Delivery Fraction of Inspired Oxygen 01/30/25 11:29 01/30/25 12:00 01/30/25 12:00 Temperature 99.4 F Pulse Rate 70 83 80 Respiratory Rate 18 18 20 Blood Pressure 179/77 H Pulse Oximetry 94 Oxygen Delivery Fraction of Inspired Oxygen 01/30/25 12:00 01/30/25 12:00 01/30/25 12:00 Temperature Pulse Rate 80 80 81 Respiratory Rate 20 Blood Pressure 179/77 H Pulse Oximetry Oxygen Delivery Fraction of Inspired Oxygen 01/30/25 12:00 01/30/25 12:00 01/30/25 12:08 Temperature Pulse Rate 69 Respiratory Rate Blood Pressure Pulse Oximetry 96 Oxygen Delivery Mechanical Ventilation Mechanical Ventilation Fraction of Inspired Oxygen 50 50 01/30/25 12:53 01/30/25 13:53 01/30/25 14:00 Temperature Pulse Rate 54 L 78 72 Respiratory Rate 16 18 17 Blood Pressure Pulse Oximetry Oxygen Delivery Fraction of Inspired Oxygen 01/30/25 14:00 01/30/25 14:00 Temperature Pulse Rate 72 72 Respiratory Rate 17 Blood Pressure Pulse Oximetry Oxygen Delivery Fraction of Inspired Oxygen Intake/Output Intake/Output: Intake & Output 01/27/25 01/28/25 01/29/25 01/30/25 23:59 23:59 23:59 23:59 Intake Total 2100.4 2672.6 2614.3 1725.3 Output Total 3025 1950 1775 450 Balance -924.6 722.6 839.3 1275.3 Meds/Results Medications: Active Medications Generic Name Dose Route Start Last Admin Trade Name Freq PRN Reason Stop Dose Admin Acetaminophen 650 mg 01/28/25 10:07 01/28/25 16:14 Acetaminophen Elixir 325 Mg/10.15 Ml Udc PO 650 mg Q6H PRN Administration Mild Pain (1-3) or Fever Albuterol/Ipratropium 3 ml 01/24/25 02:00 01/30/25 07:31 Ipratropium 0.5 Mg/Albuterol Sulfate 2.5 Mg (Base) Ampul.Neb 3 Ml INHALATION 3 ml Q6HRT JOCELYNE Administration Amlodipine Besylate 10 mg 01/28/25 09:00 01/28/25 09:23 Amlodipine Besylate 10 Mg Tablet PO 10 mg On Hold: 01/29/25 07:44 DAILY JOCELYNE Administration Aspirin 81 mg 01/30/25 08:00 01/30/25 08:45 Aspirin 81 Mg Chewable Tablet PO 81 mg DAILY@0800 JOCELYNE Administration Atorvastatin Calcium 80 mg 01/24/25 21:00 01/29/25 20:01 Atorvastatin 40 Mg Tablet PO 80 mg QHS JOCELYNE Administration Carvedilol 3.125 mg 01/24/25 21:00 Carvedilol 3.125 Mg Tablet PO On Hold: 01/24/25 21:00 Q12HR JOCELYNE Empagliflozin 10 mg 01/27/25 09:00 01/30/25 08:45 Empagliflozin 10 Mg Tablet PO 10 mg DAILY JOCELYNE Administration Enoxaparin Sodium 40 mg 01/30/25 10:35 01/30/25 10:58 Enoxaparin 40 Mg/0.4 Ml Syringe SUB-Q 40 mg DAILY JOCELYNE Administration Hydralazine HCl 20 mg 01/27/25 19:40 01/29/25 14:52 Hydralazine Hcl 20 Mg/Ml Vial IV PUSH 20 mg Q4HR PRN Administration SBP > 160 Lidocaine HCl/Dextrose 2 gm in 500 mls @ 30 mls/hr 01/24/25 13:30 01/30/25 12:00 Lidocaine In D5w 4 Mg/Ml IV CONT 2 mg/min .[id number] JOCELYNE 30 mls/hr 2 MG/MIN Infusion Fentanyl Citrate 2,500 mcg in 250 mls @ 10 mls/hr 01/29/25 13:40 01/30/25 14:00 Fentanyl 2,500 Mcg/Ns 250 Ml IV CONT 100 mcg/hr .Q25H JOCELYNE 10 mls/hr Protocol Titration 100 MCG/HR Midazolam HCl 100 mg in 100 mls @ 3 mls/hr 01/29/25 13:40 01/30/25 14:00 Versed 100 Mg/Ns 100 Ml IV CONT 3 mg/hr .[id number] JOCELYNE 3 mls/hr Protocol Titration 3 MG/HR Multi-Ingred Cream/Lotion/Oil/Oint 1 applic 01/24/25 09:00 01/30/25 08:57 Mineral Oil/White Petrolatum Ointment EACH EYE 1 applic Q12HR JOCELYNE Administration Pantoprazole Sodium 40 mg 01/24/25 09:00 01/30/25 08:45 Pantoprazole Sodium Iv 40 Mg Vial IV PUSH 40 mg DAILY JOCELYNE Administration Polyethylene Glycol 17 gm 01/27/25 10:14 Polyethylene Glycol 3350 17 Gm Powd.Pack PO QAM PRN Constipation Senna/Docusate Sodium 1 tab 01/27/25 21:00 01/29/25 20:01 Senna/Docusate Sodium Tablet PO 1 tab HS JOCELYNE Administration Sodium Chloride 10 ml 01/24/25 06:00 01/30/25 14:07 Central Line Flush IV PUSH 10 ml Q8HR JOCELYNE Administration Sodium Chloride 20 ml 01/23/25 22:48 Central Line Flush IV PUSH PRN PRN after blood draws Sodium Chloride 10 ml 01/30/25 08:47 Central Line Flush IV PUSH PRN PRN with TPN bag changes Radiology Results: ITS Impressions Head CT 01/23/25 19:11 IMPRESSION: No acute intracranial hemorrhage or extra axial fluid collections. Bilateral mastoiditis. All CT scans at this facility are performed using low dose modulation techniques as appropriate to perform exam including the following: automated exposure control; use of iterative reconstruction technique; adjustment of the mA and/or kV according to patient size (this includes techniques or standardized protocols for targeted exams where dose is matched to indication/reason for exam). Chest/Abdomen/Pelvis CT 01/23/25 19:16 IMPRESSION: Bilateral lower lobe consolidation may represent pneumonia. No acute abdominal or pelvic findings. All CT scans at this facility are performed using low dose modulation techniques as appropriate to perform exam including the following: automated exposure control; use of iterative reconstruction technique; adjustment of the mA and/or kV according to patient size (this includes techniques or standardized protocols for targeted exams where dose is matched to indication/reason for exam). Venous Doppler Study 01/24/25 11:45 IMPRESSION: 1. No DVT either leg. Ankle Brachial Index 01/24/25 11:52 IMPRESSION: 1. Artery pressures and the pressures at the right and left brachial, posterior tibial and dorsalis pedis arteries were unable to be obtained likely due to markedly increased pressures with right and left great toe pressures of 212 and 214 mmHg respectively. Abdomen X-Ray 01/29/25 14:09 Impression: 1. No acute abnormality. Chest X-Ray 01/30/25 08:27 Impression: CHF. Superimposed probable pneumonia. The findings appear minimally improved. Labs Labs: Laboratory Results - last 24 hr 01/29/25 01/29/25 01/29/25 15:07 17:31 18:00 WBC RBC Hgb Hct MCV MCH MCHC RDW Plt Count MPV Immature Gran % (Auto) Neut % (Auto) Lymph % (Auto) [place] % (Auto) Eos % (Auto) Baso % (Auto) Lymph # (Auto) [place] # (Auto) Eos # (Auto) Baso # (Auto) Abs Immat Gran (auto) Absolute Neuts (auto) Absolute Nucleated RBC Nucleated RBC % APTT 71.6 H Puncture Site Left radial ABG pH 7.379 ABG pCO2 45.4 H ABG pO2 219.5 H ABG PO2/FiO2 Ratio 2.19 ABG HCO3 26.2 H ABG O2 Saturation 99.4 ABG O2 Content 19.5 ABG Base Excess 0.7 A-a Gradient 448.1 Oxyhemoglobin 98.3 Carboxyhemoglobin 0.6 Methemoglobin 0.4 Reduced Hemoglobin 0.7 Total Hemoglobin 13.8 O2 Delivery Device Ventilator O2 Liters/Min Not Reportable Minute Volume Not Reportable Vent Rate 20 Vent Mode Cmv FiO2 100 Tidal Volume 500 PEEP 8 Peak Inspir Pressure Not Reportable Pressure Support Not Reportable Sodium Potassium Chloride Carbon Dioxide Anion Gap BUN Creatinine Estim Creat Clear Calc Estimated GFR Glucose POC Capillary Glucose 134 H Calcium Phosphorus Magnesium Total Bilirubin AST ALT Alkaline Phosphatase Total Protein Albumin 01/30/25 01/30/25 01/30/25 00:19 04:43 04:48 WBC 10.2 H RBC 3.28 L Hgb 11.1 L Hct 33.6 L MCV 102.4 H MCH 33.8 MCHC 33.0 RDW 13.9 Plt Count 234 MPV 10.3 Immature Gran % (Auto) 0.8 H Neut % (Auto) 49.8 Lymph % (Auto) 34.3 [place] % (Auto) 13.1 H Eos % (Auto) 1.7 Baso % (Auto) 0.3 Lymph # (Auto) 3.50 H [place] # (Auto) 1.3 H Eos # (Auto) 0.2 Baso # (Auto) 0.0 Abs Immat Gran (auto) 0.08 H Absolute Neuts (auto) 5.1 Absolute Nucleated RBC 0.000 Nucleated RBC % 0.0 APTT 75.3 H Puncture Site Left radial ABG pH 7.498 H ABG pCO2 34.0 L ABG pO2 76.0 L ABG PO2/FiO2 Ratio 1.52 ABG HCO3 25.8 ABG O2 Saturation 96.3 ABG O2 Content 20.8 ABG Base Excess 3.1 A-a Gradient 242.3 Oxyhemoglobin 94.3 Carboxyhemoglobin 0.8 Methemoglobin 0.0 Reduced Hemoglobin 4.9 Total Hemoglobin 15.7 O2 Delivery Device Ventilator O2 Liters/Min Not Reportable Minute Volume Not Reportable Vent Rate 20 Vent Mode Cmv FiO2 50 Tidal Volume 500 PEEP 8 Peak Inspir Pressure Not Reportable Pressure Support Not Reportable Sodium 137 Potassium 3.1 L Chloride 105 Carbon Dioxide 29 Anion Gap 3 L BUN 27 H Creatinine 1.46 H Estim Creat Clear Calc 60 Estimated GFR 47 L Glucose 138 H POC Capillary Glucose 143 H Calcium 8.9 Phosphorus 4.6 H Magnesium 1.9 Total Bilirubin 0.8 AST 86 H ALT 50 Alkaline Phosphatase 74 Total Protein 5.9 L Albumin 3.0 L 01/30/25 11:35 WBC RBC Hgb Hct MCV MCH MCHC RDW Plt Count MPV Immature Gran % (Auto) Neut % (Auto) Lymph % (Auto) [place] % (Auto) Eos % (Auto) Baso % (Auto) Lymph # (Auto) [place] # (Auto) Eos # (Auto) Baso # (Auto) Abs Immat Gran (auto) Absolute Neuts (auto) Absolute Nucleated RBC Nucleated RBC % APTT Puncture Site ABG pH ABG pCO2 ABG pO2 ABG PO2/FiO2 Ratio ABG HCO3 ABG O2 Saturation ABG O2 Content ABG Base Excess A-a Gradient Oxyhemoglobin Carboxyhemoglobin Methemoglobin Reduced Hemoglobin Total Hemoglobin O2 Delivery Device O2 Liters/Min Minute Volume Vent Rate Vent Mode FiO2 Tidal Volume PEEP Peak Inspir Pressure Pressure Support Sodium Potassium Chloride Carbon Dioxide Anion Gap BUN Creatinine Estim Creat Clear Calc Estimated GFR Glucose POC Capillary Glucose 131 H Calcium Phosphorus Magnesium Total Bilirubin AST ALT Alkaline Phosphatase Total Protein Albumin Quality VTE Prophylaxis VTE prophylaxis: pharmacologic ordered
--- NOTE | 2025-01-30 14:47 | P.PNCA_ITS ---
Progress Note: A&P Assessment and Plan (1) Cardiac arrest with ventricular fibrillation: Code(s): I46.9 - Cardiac arrest, cause unspecified; I49.01 - Ventricular fibrillation Status: Acute (2) Chronic atrial fibrillation: Code(s): I48.20 - Chronic atrial fibrillation, unspecified Status: Acute (3) Coronary artery disease involving [place] coronary artery of [place] heart without angina pectoris: Code(s): I25.10 - Atherosclerotic heart disease of [place] coronary artery without angina pectoris Status: Acute (4) Moderate aortic stenosis: Code(s): I35.0 - Nonrheumatic aortic (valve) stenosis Status: Acute Plan 79-year-old man with chronic systolic heart failure (LVEF 45-50% in 2021), chronic atrial fibrillation status post ablation on Eliquis, coronary artery disease, hypertension, and alcohol abuse who initially presented a week after mechanical fall with right wrist fracture with superficial infection who suffered a VFib arrest who underwent hypothermic protocol and cardiac catheterization showing multivessel obstructive CAD and an echocardiogram showing moderate aortic stenosis with relatively preserved biventricular systolic function who was briefly extubated and following commands now underwent another episode of VFIB arrest and now re-intubated VFib arrest status post ROSC -sp hypothermic protocol -mental status intact after extubation -unfortunately, is now reintubated due to another episode of ventricular fibrillation arrest -continue lidocaine drip given concerns of ischemic electrical instability -currently spontaneous moving all extremities and agitated NSTEMI -was found to have severe obstructive CAD and likely mid LAD is the culprit -continue aspirin 81 mg p.o. daily and atorvastatin 80 mg every evening -carvedilol 3.125 mg p.o. b.i.d. can be uptitrated for goal HR <70 -will initiate transfer for CT surgery consultation versus mid LAD PCI Chronic atrial fibrillation status post ablation -Eliquis on hold given blood in the ET tube -home amiodarone on hold Moderate aortic stenosis -CTS consultation given his severe multivessel obstructive CAD -likely to progress to severe in near future Subjective Date/time seen: 01/30/25 14:47 Interval history: He was extubated over the weekend and was following commands. Unfortunately he became hypoxic and suffered another ventricular fibrillation arrest. He is now reintubated. Review of Systems Review of Systems: ROS unobtainable: Yes unobtainable due to endotracheal tube Exam Const: Other: Agitated HENMT: Mouth: Yes moist mucous membranes Eyes: EOM: EOMs intact bilaterally Neck: Neck: no JVD Resp: Effort & Inspection: normal respiratory effort Cardio: Rate: regular rate Extrem: General: no pedal edema Objective Data Vital Signs Vital Signs: Vital Signs - 24 hr 01/29/25 15:00 01/29/25 15:00 01/29/25 15:30 Temperature 37.5 C Pulse Rate 160 H 104 H 166 H Respiratory Rate 20 22 H Blood Pressure 227/107 H 210/116 H Pulse Oximetry 99 Oxygen Delivery Fraction of Inspired Oxygen 01/29/25 15:30 01/29/25 15:44 01/29/25 16:00 Temperature Pulse Rate 166 H 166 H 74 Respiratory Rate 22 H 20 Blood Pressure 215/195 H Pulse Oximetry 100 Oxygen Delivery Mechanical Ventilation Fraction of Inspired Oxygen 100 01/29/25 16:00 01/29/25 16:00 01/29/25 16:00 Temperature 37.1 C Pulse Rate 74 74 Respiratory Rate 20 Blood Pressure 118/67 Pulse Oximetry 100 Oxygen Delivery Fraction of Inspired Oxygen 100 01/29/25 16:00 01/29/25 16:00 01/29/25 16:23 Temperature Pulse Rate 64 64 99 Respiratory Rate 20 20 Blood Pressure Pulse Oximetry 99 Oxygen Delivery Mechanical Ventilation Fraction of Inspired Oxygen 80 01/29/25 16:54 01/29/25 17:00 01/29/25 18:00 Temperature 36.9 C Pulse Rate 64 61 61 Respiratory Rate 20 Blood Pressure 98/65 L 89/63 L Pulse Oximetry 100 Oxygen Delivery Fraction of Inspired Oxygen 01/29/25 18:00 01/29/25 18:00 01/29/25 18:00 Temperature Pulse Rate 61 61 61 Respiratory Rate 20 20 Blood Pressure 90/61 L Pulse Oximetry Oxygen Delivery Fraction of Inspired Oxygen 01/29/25 18:00 01/29/25 19:00 01/29/25 19:48 Temperature 36.9 C 36.9 C Pulse Rate 54 L 55 L Respiratory Rate 20 20 Blood Pressure 95/58 L 100/58 L Pulse Oximetry 100 100 Oxygen Delivery Fraction of Inspired Oxygen 100 01/29/25 19:52 01/29/25 20:00 01/29/25 20:00 Temperature 37.1 C Pulse Rate 56 L 56 L Respiratory Rate 20 Blood Pressure 99/59 L 99/59 L Pulse Oximetry 100 100 Oxygen Delivery Mechanical Ventilation Fraction of Inspired Oxygen 01/29/25 20:00 01/29/25 20:00 01/29/25 20:00 Temperature Pulse Rate 56 L 56 L 55 L Respiratory Rate 20 20 Blood Pressure Pulse Oximetry Oxygen Delivery Fraction of Inspired Oxygen 01/29/25 21:00 01/29/25 21:06 01/29/25 21:06 Temperature 37.4 C Pulse Rate 55 L 54 L 54 L Respiratory Rate 20 20 Blood Pressure 97/55 L Pulse Oximetry 100 100 Oxygen Delivery Mechanical Ventilation Fraction of Inspired Oxygen 80 01/29/25 21:11 01/29/25 22:00 01/29/25 22:00 Temperature 37.7 C H Pulse Rate 54 L 60 60 Respiratory Rate 20 20 Blood Pressure 104/54 L Pulse Oximetry 100 Oxygen Delivery Fraction of Inspired Oxygen 01/29/25 22:00 01/29/25 22:00 01/29/25 22:00 Temperature Pulse Rate 60 60 60 Respiratory Rate 20 20 Blood Pressure 104/54 L Pulse Oximetry Oxygen Delivery Fraction of Inspired Oxygen 01/29/25 22:09 01/29/25 23:00 01/29/25 23:11 Temperature 37.9 C H Pulse Rate 56 L 63 Respiratory Rate 20 Blood Pressure 101/56 L Pulse Oximetry 100 94 Oxygen Delivery Mechanical Ventilation Fraction of Inspired Oxygen 60 60 01/30/25 00:00 01/30/25 00:00 01/30/25 00:00 Temperature Pulse Rate 51 L Respiratory Rate Blood Pressure Pulse Oximetry 100 Oxygen Delivery Mechanical Ventilation Fraction of Inspired Oxygen 60 01/30/25 00:00 01/30/25 00:00 01/30/25 00:00 Temperature Pulse Rate 52 L 52 L 52 L Respiratory Rate 20 20 Blood Pressure 121/61 Pulse Oximetry Oxygen Delivery Fraction of Inspired Oxygen 01/30/25 00:00 01/30/25 01:00 01/30/25 01:46 Temperature 38.1 C H 38.1 C H Pulse Rate 50 L 52 L 53 L Respiratory Rate 20 20 20 Blood Pressure 99/54 L 121/61 Pulse Oximetry 100 97 Oxygen Delivery Fraction of Inspired Oxygen 01/30/25 01:47 01/30/25 02:00 01/30/25 02:00 Temperature 38.1 C H Pulse Rate 54 L 51 L 51 L Respiratory Rate 20 20 Blood Pressure 110/57 L 110/57 L Pulse Oximetry 97 Oxygen Delivery Fraction of Inspired Oxygen 01/30/25 02:00 01/30/25 02:00 01/30/25 02:00 Temperature Pulse Rate 51 L 51 L 51 L Respiratory Rate 20 20 Blood Pressure 110/57 L Pulse Oximetry Oxygen Delivery Fraction of Inspired Oxygen 01/30/25 02:00 01/30/25 02:31 01/30/25 02:32 Temperature Pulse Rate 51 L 49 L 51 L Respiratory Rate 20 Blood Pressure Pulse Oximetry 98 Oxygen Delivery Mechanical Ventilation Fraction of Inspired Oxygen 60 01/30/25 02:38 01/30/25 03:00 01/30/25 04:00 Temperature 38.1 C H Pulse Rate 49 L 53 L 52 L Respiratory Rate 20 20 20 Blood Pressure 115/57 L Pulse Oximetry 96 Oxygen Delivery Fraction of Inspired Oxygen 01/30/25 04:00 01/30/25 04:00 01/30/25 04:00 Temperature Pulse Rate 52 L 52 L Respiratory Rate 20 Blood Pressure 118/57 L Pulse Oximetry Oxygen Delivery Fraction of Inspired Oxygen 50 01/30/25 04:00 01/30/25 04:00 01/30/25 04:00 Temperature 37.9 C H Pulse Rate 53 L 52 L Respiratory Rate 20 Blood Pressure 118/57 L Pulse Oximetry 92 94 Oxygen Delivery Mechanical Ventilation Fraction of Inspired Oxygen 50 01/30/25 05:00 01/30/25 05:05 01/30/25 06:00 Temperature 37.8 C H 37.7 C H Pulse Rate 53 L 51 L 53 L Respiratory Rate 20 20 Blood Pressure 144/72 H 129/61 Pulse Oximetry 92 96 94 Oxygen Delivery Mechanical Ventilation Fraction of Inspired Oxygen 50 01/30/25 06:00 01/30/25 06:00 01/30/25 06:00 Temperature Pulse Rate 53 L 53 L 53 L Respiratory Rate 20 Blood Pressure 129/61 Pulse Oximetry Oxygen Delivery Fraction of Inspired Oxygen 01/30/25 06:00 01/30/25 06:28 01/30/25 06:28 Temperature Pulse Rate 53 L 52 L 52 L Respiratory Rate 20 20 20 Blood Pressure Pulse Oximetry Oxygen Delivery Fraction of Inspired Oxygen 01/30/25 07:00 01/30/25 07:33 01/30/25 07:35 Temperature 37.7 C H Pulse Rate 53 L 54 L 52 L Respiratory Rate 20 20 Blood Pressure 103/61 Pulse Oximetry 94 97 Oxygen Delivery Mechanical Ventilation Fraction of Inspired Oxygen 50 01/30/25 07:41 01/30/25 07:45 01/30/25 08:00 Temperature Pulse Rate 52 L 51 L 53 L Respiratory Rate 20 20 Blood Pressure 120/63 Pulse Oximetry Oxygen Delivery Fraction of Inspired Oxygen 01/30/25 08:00 01/30/25 08:00 01/30/25 08:00 Temperature 37.7 C H Pulse Rate 53 L 53 L 52 L Respiratory Rate 20 20 20 Blood Pressure 120/63 Pulse Oximetry 95 Oxygen Delivery Fraction of Inspired Oxygen 01/30/25 08:00 01/30/25 08:00 01/30/25 08:00 Temperature Pulse Rate 53 L Respiratory Rate Blood Pressure Pulse Oximetry Oxygen Delivery Mechanical Ventilation Fraction of Inspired Oxygen 50 01/30/25 08:53 01/30/25 09:00 01/30/25 09:01 Temperature 37.6 C Pulse Rate 54 L 54 L 54 L Respiratory Rate 16 16 Blood Pressure 126/59 L Pulse Oximetry 95 95 Oxygen Delivery Mechanical Ventilation Fraction of Inspired Oxygen 50 01/30/25 10:00 01/30/25 10:00 01/30/25 10:00 Temperature Pulse Rate 52 L 52 L 52 L Respiratory Rate 16 16 Blood Pressure 114/59 L Pulse Oximetry Oxygen Delivery Fraction of Inspired Oxygen 01/30/25 10:00 01/30/25 10:00 01/30/25 11:00 Temperature 37.4 C 37.4 C Pulse Rate 53 L 54 L 53 L Respiratory Rate 16 16 Blood Pressure 114/59 L 129/62 Pulse Oximetry 95 94 Oxygen Delivery Fraction of Inspired Oxygen 01/30/25 11:16 01/30/25 11:28 01/30/25 11:29 Temperature Pulse Rate 68 70 70 Respiratory Rate 18 19 18 Blood Pressure Pulse Oximetry Oxygen Delivery Fraction of Inspired Oxygen 01/30/25 12:00 01/30/25 12:00 01/30/25 12:00 Temperature 37.4 C Pulse Rate 83 80 80 Respiratory Rate 18 20 Blood Pressure 179/77 H 179/77 H Pulse Oximetry 94 Oxygen Delivery Fraction of Inspired Oxygen 01/30/25 12:00 01/30/25 12:00 01/30/25 12:00 Temperature Pulse Rate 80 81 Respiratory Rate 20 Blood Pressure Pulse Oximetry Oxygen Delivery Mechanical Ventilation Fraction of Inspired Oxygen 01/30/25 12:00 01/30/25 12:08 01/30/25 12:53 Temperature Pulse Rate 69 54 L Respiratory Rate 16 Blood Pressure Pulse Oximetry 96 Oxygen Delivery Mechanical Ventilation Fraction of Inspired Oxygen 50 50 01/30/25 13:53 01/30/25 14:00 01/30/25 14:00 Temperature Pulse Rate 78 72 72 Respiratory Rate 18 17 17 Blood Pressure Pulse Oximetry Oxygen Delivery Fraction of Inspired Oxygen 01/30/25 14:00 Temperature Pulse Rate 72 Respiratory Rate Blood Pressure Pulse Oximetry Oxygen Delivery Fraction of Inspired Oxygen Intake/Output Intake/Output: Intake & Output 01/27/25 01/28/25 01/29/25 01/30/25 23:59 23:59 23:59 23:59 Intake Total 2100.4 2672.6 2614.3 1725.3 Output Total 3025 1950 1775 450 Balance -924.6 722.6 839.3 1275.3 Meds/Results Medications: Active Medications Generic Name Dose Route Start Last Admin Trade Name Freq PRN Reason Stop Dose Admin Acetaminophen 650 mg 01/28/25 10:07 01/28/25 16:14 Acetaminophen Elixir 325 Mg/10.15 Ml Udc PO 650 mg Q6H PRN Administration Mild Pain (1-3) or Fever Albuterol/Ipratropium 3 ml 01/24/25 02:00 01/30/25 07:31 Ipratropium 0.5 Mg/Albuterol Sulfate 2.5 Mg (Base) Ampul.Neb 3 Ml INHALATION 3 ml Q6HRT JOCELYNE Administration Amlodipine Besylate 10 mg 01/28/25 09:00 01/28/25 09:23 Amlodipine Besylate 10 Mg Tablet PO 10 mg On Hold: 01/29/25 07:44 DAILY JOCELYNE Administration Aspirin 81 mg 01/30/25 08:00 01/30/25 08:45 Aspirin 81 Mg Chewable Tablet PO 81 mg DAILY@0800 JOCELYNE Administration Atorvastatin Calcium 80 mg 01/24/25 21:00 01/29/25 20:01 Atorvastatin 40 Mg Tablet PO 80 mg QHS JOCELYNE Administration Carvedilol 3.125 mg 01/24/25 21:00 Carvedilol 3.125 Mg Tablet PO On Hold: 01/24/25 21:00 Q12HR JOCELYNE Empagliflozin 10 mg 01/27/25 09:00 01/30/25 08:45 Empagliflozin 10 Mg Tablet PO 10 mg DAILY JOCELYNE Administration Enoxaparin Sodium 40 mg 01/30/25 10:35 01/30/25 10:58 Enoxaparin 40 Mg/0.4 Ml Syringe SUB-Q 40 mg DAILY JOCELYNE Administration Hydralazine HCl 20 mg 01/27/25 19:40 01/29/25 14:52 Hydralazine Hcl 20 Mg/Ml Vial IV PUSH 20 mg Q4HR PRN Administration SBP > 160 Lidocaine HCl/Dextrose 2 gm in 500 mls @ 30 mls/hr 01/24/25 13:30 01/30/25 12:00 Lidocaine In D5w 4 Mg/Ml IV CONT 2 mg/min .[id number] JOCELYNE 30 mls/hr 2 MG/MIN Infusion Fentanyl Citrate 2,500 mcg in 250 mls @ 10 mls/hr 01/29/25 13:40 01/30/25 14:00 Fentanyl 2,500 Mcg/Ns 250 Ml IV CONT 100 mcg/hr .Q25H JOCELYNE 10 mls/hr Protocol Titration 100 MCG/HR Midazolam HCl 100 mg in 100 mls @ 3 mls/hr 01/29/25 13:40 01/30/25 14:00 Versed 100 Mg/Ns 100 Ml IV CONT 3 mg/hr .[id number] JOCELYNE 3 mls/hr Protocol Titration 3 MG/HR Multi-Ingred Cream/Lotion/Oil/Oint 1 applic 01/24/25 09:00 01/30/25 08:57 Mineral Oil/White Petrolatum Ointment EACH EYE 1 applic Q12HR JOCELYNE Administration Pantoprazole Sodium 40 mg 01/24/25 09:00 01/30/25 08:45 Pantoprazole Sodium Iv 40 Mg Vial IV PUSH 40 mg DAILY JOCELYNE Administration Polyethylene Glycol 17 gm 01/27/25 10:14 Polyethylene Glycol 3350 17 Gm Powd.Pack PO QAM PRN Constipation Senna/Docusate Sodium 1 tab 01/27/25 21:00 01/29/25 20:01 Senna/Docusate Sodium Tablet PO 1 tab HS JOCELYNE Administration Sodium Chloride 10 ml 01/24/25 06:00 01/30/25 14:07 Central Line Flush IV PUSH 10 ml Q8HR JOCELYNE Administration Sodium Chloride 20 ml 01/23/25 22:48 Central Line Flush IV PUSH PRN PRN after blood draws Sodium Chloride 10 ml 01/30/25 08:47 Central Line Flush IV PUSH PRN PRN with TPN bag changes Radiology Results: ITS Impressions Head CT 01/23/25 19:11 IMPRESSION: No acute intracranial hemorrhage or extra axial fluid collections. Bilateral mastoiditis. All CT scans at this facility are performed using low dose modulation techniques as appropriate to perform exam including the following: automated exposure control; use of iterative reconstruction technique; adjustment of the mA and/or kV according to patient size (this includes techniques or standardized protocols for targeted exams where dose is matched to indication/reason for exam). Chest/Abdomen/Pelvis CT 01/23/25 19:16 IMPRESSION: Bilateral lower lobe consolidation may represent pneumonia. No acute abdominal or pelvic findings. All CT scans at this facility are performed using low dose modulation techniques as appropriate to perform exam including the following: automated exposure control; use of iterative reconstruction technique; adjustment of the mA and/or kV according to patient size (this includes techniques or standardized protocols for targeted exams where dose is matched to indication/reason for exam). Venous Doppler Study 01/24/25 11:45 IMPRESSION: 1. No DVT either leg. Ankle Brachial Index 01/24/25 11:52 IMPRESSION: 1. Artery pressures and the pressures at the right and left brachial, posterior tibial and dorsalis pedis arteries were unable to be obtained likely due to markedly increased pressures with right and left great toe pressures of 212 and 214 mmHg respectively. Abdomen X-Ray 01/29/25 14:09 Impression: 1. No acute abnormality. Chest X-Ray 01/30/25 08:27 Impression: CHF. Superimposed probable pneumonia. The findings appear minimally improved. Labs Labs: Laboratory Results - last 24 hr 01/29/25 01/29/25 01/29/25 15:07 17:31 18:00 WBC RBC Hgb Hct MCV MCH MCHC RDW Plt Count MPV Immature Gran % (Auto) Neut % (Auto) Lymph % (Auto) [place] % (Auto) Eos % (Auto) Baso % (Auto) Lymph # (Auto) [place] # (Auto) Eos # (Auto) Baso # (Auto) Abs Immat Gran (auto) Absolute Neuts (auto) Absolute Nucleated RBC Nucleated RBC % APTT 71.6 H Puncture Site Left radial ABG pH 7.379 ABG pCO2 45.4 H ABG pO2 219.5 H ABG PO2/FiO2 Ratio 2.19 ABG HCO3 26.2 H ABG O2 Saturation 99.4 ABG O2 Content 19.5 ABG Base Excess 0.7 A-a Gradient 448.1 Oxyhemoglobin 98.3 Carboxyhemoglobin 0.6 Methemoglobin 0.4 Reduced Hemoglobin 0.7 Total Hemoglobin 13.8 O2 Delivery Device Ventilator O2 Liters/Min Not Reportable Minute Volume Not Reportable Vent Rate 20 Vent Mode Cmv FiO2 100 Tidal Volume 500 PEEP 8 Peak Inspir Pressure Not Reportable Pressure Support Not Reportable Sodium Potassium Chloride Carbon Dioxide Anion Gap BUN Creatinine Estim Creat Clear Calc Estimated GFR Glucose POC Capillary Glucose 134 H Calcium Phosphorus Magnesium Total Bilirubin AST ALT Alkaline Phosphatase Total Protein Albumin 01/30/25 01/30/25 01/30/25 00:19 04:43 04:48 WBC 10.2 H RBC 3.28 L Hgb 11.1 L Hct 33.6 L MCV 102.4 H MCH 33.8 MCHC 33.0 RDW 13.9 Plt Count 234 MPV 10.3 Immature Gran % (Auto) 0.8 H Neut % (Auto) 49.8 Lymph % (Auto) 34.3 [place] % (Auto) 13.1 H Eos % (Auto) 1.7 Baso % (Auto) 0.3 Lymph # (Auto) 3.50 H [place] # (Auto) 1.3 H Eos # (Auto) 0.2 Baso # (Auto) 0.0 Abs Immat Gran (auto) 0.08 H Absolute Neuts (auto) 5.1 Absolute Nucleated RBC 0.000 Nucleated RBC % 0.0 APTT 75.3 H Puncture Site Left radial ABG pH 7.498 H ABG pCO2 34.0 L ABG pO2 76.0 L ABG PO2/FiO2 Ratio 1.52 ABG HCO3 25.8 ABG O2 Saturation 96.3 ABG O2 Content 20.8 ABG Base Excess 3.1 A-a Gradient 242.3 Oxyhemoglobin 94.3 Carboxyhemoglobin 0.8 Methemoglobin 0.0 Reduced Hemoglobin 4.9 Total Hemoglobin 15.7 O2 Delivery Device Ventilator O2 Liters/Min Not Reportable Minute Volume Not Reportable Vent Rate 20 Vent Mode Cmv FiO2 50 Tidal Volume 500 PEEP 8 Peak Inspir Pressure Not Reportable Pressure Support Not Reportable Sodium 137 Potassium 3.1 L Chloride 105 Carbon Dioxide 29 Anion Gap 3 L BUN 27 H Creatinine 1.46 H Estim Creat Clear Calc 60 Estimated GFR 47 L Glucose 138 H POC Capillary Glucose 143 H Calcium 8.9 Phosphorus 4.6 H Magnesium 1.9 Total Bilirubin 0.8 AST 86 H ALT 50 Alkaline Phosphatase 74 Total Protein 5.9 L Albumin 3.0 L 01/30/25 11:35 WBC RBC Hgb Hct MCV MCH MCHC RDW Plt Count MPV Immature Gran % (Auto) Neut % (Auto) Lymph % (Auto) [place] % (Auto) Eos % (Auto) Baso % (Auto) Lymph # (Auto) [place] # (Auto) Eos # (Auto) Baso # (Auto) Abs Immat Gran (auto) Absolute Neuts (auto) Absolute Nucleated RBC Nucleated RBC % APTT Puncture Site ABG pH ABG pCO2 ABG pO2 ABG PO2/FiO2 Ratio ABG HCO3 ABG O2 Saturation ABG O2 Content ABG Base Excess A-a Gradient Oxyhemoglobin Carboxyhemoglobin Methemoglobin Reduced Hemoglobin Total Hemoglobin O2 Delivery Device O2 Liters/Min Minute Volume Vent Rate Vent Mode FiO2 Tidal Volume PEEP Peak Inspir Pressure Pressure Support Sodium Potassium Chloride Carbon Dioxide Anion Gap BUN Creatinine Estim Creat Clear Calc Estimated GFR Glucose POC Capillary Glucose 131 H Calcium Phosphorus Magnesium Total Bilirubin AST ALT Alkaline Phosphatase Total Protein Albumin
[2025-01-30] MEDS: MIDAZOLAM HCL (*CRX) 2 MG/2 ML VIAL 4 MG IV PUSH (14:58)
--- NOTE | 2025-01-30 15:01 | ECG_ITS ---
Test Date: 2025-01-30 15:41:13 Measurements Intervals [place] Rate: 57 P: 67 [place]: 172 QRS: 14 QRSD: 117 T: 159 QT: 550 QTc: 540 Interpretive Statements SINUS BRADYCARDIA INTRAVENTRICULAR CONDUCTION DELAY ST-T WAVE ABNORMALITY IN ANTEROLAT/HIGH LAT LEADS- CONSIDER ISCHEMIA ABNORMAL ECG Compared to ECG 01/24/2025 12:06:55 HEART RATE HAS DECREASED POSSIBLE ISCHEMIA NOW PRESENT Electronically Signed On 01-30-2025 16:12:16 [employer] by Joss Cast D.O.
--- NOTE | 2025-01-30 16:43 | WPDINFPN2 ---
Progress Note: A&P Assessment and Plan (1) Pneumonia: Code(s): J18.9 - Pneumonia, unspecified organism Status: Acute Assessment and Plan: ASSESSMENT: 1. pneumonia--CAP/aspiration?; MRSA nares neg; sputum cx nl micky; treated 2. Vfib cardiac arrest 3. acute respiratory failure; s/p re-intubation 4. Afib 5. CAD 6. HTN, HL 7. morbid obesity 8. 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 Chart, data and patient info reviewed. Patient was located at [facility] while I was in my [place] office. Subjective Date/time seen: 01/30/25 16:43 Interval history: low grade temps WBC count down Exam Narrative: In ICU on vent: FiO2=50 and PEEP=8 no pressors +ETT +OGT not many secretions sinus rhythm abd soft NT +lira--good u/o Objective Data Vital Signs Vital Signs: Vital Signs - 24 hr 01/29/25 16:54 01/29/25 17:00 01/29/25 18:00 Temperature 98.5 F Pulse Rate 64 61 61 Respiratory Rate 20 Blood Pressure 98/65 L 89/63 L Pulse Oximetry 100 Oxygen Delivery Fraction of Inspired Oxygen 01/29/25 18:00 01/29/25 18:00 01/29/25 18:00 Temperature Pulse Rate 61 61 61 Respiratory Rate 20 20 Blood Pressure 90/61 L Pulse Oximetry Oxygen Delivery Fraction of Inspired Oxygen 01/29/25 18:00 01/29/25 19:00 01/29/25 19:48 Temperature 98.4 F 98.5 F Pulse Rate 54 L 55 L Respiratory Rate 20 20 Blood Pressure 95/58 L 100/58 L Pulse Oximetry 100 100 Oxygen Delivery Fraction of Inspired Oxygen 100 01/29/25 19:52 01/29/25 20:00 01/29/25 20:00 Temperature 98.8 F Pulse Rate 56 L 56 L Respiratory Rate 20 Blood Pressure 99/59 L 99/59 L Pulse Oximetry 100 100 Oxygen Delivery Mechanical Ventilation Fraction of Inspired Oxygen 01/29/25 20:00 01/29/25 20:00 01/29/25 20:00 Temperature Pulse Rate 56 L 56 L 55 L Respiratory Rate 20 20 Blood Pressure Pulse Oximetry Oxygen Delivery Fraction of Inspired Oxygen 01/29/25 21:00 01/29/25 21:06 01/29/25 21:06 Temperature 99.4 F Pulse Rate 55 L 54 L 54 L Respiratory Rate 20 20 Blood Pressure 97/55 L Pulse Oximetry 100 100 Oxygen Delivery Mechanical Ventilation Fraction of Inspired Oxygen 80 01/29/25 21:11 01/29/25 22:00 01/29/25 22:00 Temperature 99.8 F H Pulse Rate 54 L 60 60 Respiratory Rate 20 20 Blood Pressure 104/54 L Pulse Oximetry 100 Oxygen Delivery Fraction of Inspired Oxygen 01/29/25 22:00 01/29/25 22:00 01/29/25 22:00 Temperature Pulse Rate 60 60 60 Respiratory Rate 20 20 Blood Pressure 104/54 L Pulse Oximetry Oxygen Delivery Fraction of Inspired Oxygen 01/29/25 22:09 01/29/25 23:00 01/29/25 23:11 Temperature 100.3 F H Pulse Rate 56 L 63 Respiratory Rate 20 Blood Pressure 101/56 L Pulse Oximetry 100 94 Oxygen Delivery Mechanical Ventilation Fraction of Inspired Oxygen 60 60 01/30/25 00:00 01/30/25 00:00 01/30/25 00:00 Temperature Pulse Rate 51 L Respiratory Rate Blood Pressure Pulse Oximetry 100 Oxygen Delivery Mechanical Ventilation Fraction of Inspired Oxygen 60 01/30/25 00:00 01/30/25 00:00 01/30/25 00:00 Temperature Pulse Rate 52 L 52 L 52 L Respiratory Rate 20 20 Blood Pressure 121/61 Pulse Oximetry Oxygen Delivery Fraction of Inspired Oxygen 01/30/25 00:00 01/30/25 01:00 01/30/25 01:46 Temperature 100.5 F H 100.6 F H Pulse Rate 50 L 52 L 53 L Respiratory Rate 20 20 20 Blood Pressure 99/54 L 121/61 Pulse Oximetry 100 97 Oxygen Delivery Fraction of Inspired Oxygen 01/30/25 01:47 01/30/25 02:00 01/30/25 02:00 Temperature 100.6 F H Pulse Rate 54 L 51 L 51 L Respiratory Rate 20 20 Blood Pressure 110/57 L 110/57 L Pulse Oximetry 97 Oxygen Delivery Fraction of Inspired Oxygen 01/30/25 02:00 01/30/25 02:00 01/30/25 02:00 Temperature Pulse Rate 51 L 51 L 51 L Respiratory Rate 20 20 Blood Pressure 110/57 L Pulse Oximetry Oxygen Delivery Fraction of Inspired Oxygen 01/30/25 02:00 01/30/25 02:31 01/30/25 02:32 Temperature Pulse Rate 51 L 49 L 51 L Respiratory Rate 20 Blood Pressure Pulse Oximetry 98 Oxygen Delivery Mechanical Ventilation Fraction of Inspired Oxygen 60 01/30/25 02:38 01/30/25 03:00 01/30/25 04:00 Temperature 100.5 F H Pulse Rate 49 L 53 L 52 L Respiratory Rate 20 20 20 Blood Pressure 115/57 L Pulse Oximetry 96 Oxygen Delivery Fraction of Inspired Oxygen 01/30/25 04:00 01/30/25 04:00 01/30/25 04:00 Temperature Pulse Rate 52 L 52 L Respiratory Rate 20 Blood Pressure 118/57 L Pulse Oximetry Oxygen Delivery Fraction of Inspired Oxygen 50 01/30/25 04:00 01/30/25 04:00 01/30/25 04:00 Temperature 100.3 F H Pulse Rate 53 L 52 L Respiratory Rate 20 Blood Pressure 118/57 L Pulse Oximetry 92 94 Oxygen Delivery Mechanical Ventilation Fraction of Inspired Oxygen 50 01/30/25 05:00 01/30/25 05:05 01/30/25 06:00 Temperature 100.1 F H 99.9 F H Pulse Rate 53 L 51 L 53 L Respiratory Rate 20 20 Blood Pressure 144/72 H 129/61 Pulse Oximetry 92 96 94 Oxygen Delivery Mechanical Ventilation Fraction of Inspired Oxygen 50 01/30/25 06:00 01/30/25 06:00 01/30/25 06:00 Temperature Pulse Rate 53 L 53 L 53 L Respiratory Rate 20 Blood Pressure 129/61 Pulse Oximetry Oxygen Delivery Fraction of Inspired Oxygen 01/30/25 06:00 01/30/25 06:28 01/30/25 06:28 Temperature Pulse Rate 53 L 52 L 52 L Respiratory Rate 20 20 20 Blood Pressure Pulse Oximetry Oxygen Delivery Fraction of Inspired Oxygen 01/30/25 07:00 01/30/25 07:33 01/30/25 07:35 Temperature 99.8 F H Pulse Rate 53 L 54 L 52 L Respiratory Rate 20 20 Blood Pressure 103/61 Pulse Oximetry 94 97 Oxygen Delivery Mechanical Ventilation Fraction of Inspired Oxygen 50 01/30/25 07:41 01/30/25 07:45 01/30/25 08:00 Temperature Pulse Rate 52 L 51 L 53 L Respiratory Rate 20 20 Blood Pressure 120/63 Pulse Oximetry Oxygen Delivery Fraction of Inspired Oxygen 01/30/25 08:00 01/30/25 08:00 01/30/25 08:00 Temperature 99.8 F H Pulse Rate 53 L 53 L 52 L Respiratory Rate 20 20 20 Blood Pressure 120/63 Pulse Oximetry 95 Oxygen Delivery Fraction of Inspired Oxygen 01/30/25 08:00 01/30/25 08:00 01/30/25 08:00 Temperature Pulse Rate 53 L Respiratory Rate Blood Pressure Pulse Oximetry Oxygen Delivery Mechanical Ventilation Fraction of Inspired Oxygen 50 01/30/25 08:53 01/30/25 09:00 01/30/25 09:01 Temperature 99.6 F Pulse Rate 54 L 54 L 54 L Respiratory Rate 16 16 Blood Pressure 126/59 L Pulse Oximetry 95 95 Oxygen Delivery Mechanical Ventilation Fraction of Inspired Oxygen 50 01/30/25 10:00 01/30/25 10:00 01/30/25 10:00 Temperature Pulse Rate 52 L 52 L 52 L Respiratory Rate 16 16 Blood Pressure 114/59 L Pulse Oximetry Oxygen Delivery Fraction of Inspired Oxygen 01/30/25 10:00 01/30/25 10:00 01/30/25 11:00 Temperature 99.4 F 99.4 F Pulse Rate 53 L 54 L 53 L Respiratory Rate 16 16 Blood Pressure 114/59 L 129/62 Pulse Oximetry 95 94 Oxygen Delivery Fraction of Inspired Oxygen 01/30/25 11:16 01/30/25 11:28 01/30/25 11:29 Temperature Pulse Rate 68 70 70 Respiratory Rate 18 19 18 Blood Pressure Pulse Oximetry Oxygen Delivery Fraction of Inspired Oxygen 01/30/25 12:00 01/30/25 12:00 01/30/25 12:00 Temperature 99.4 F Pulse Rate 83 80 80 Respiratory Rate 18 20 Blood Pressure 179/77 H 179/77 H Pulse Oximetry 94 Oxygen Delivery Fraction of Inspired Oxygen 01/30/25 12:00 01/30/25 12:00 01/30/25 12:00 Temperature Pulse Rate 80 81 Respiratory Rate 20 Blood Pressure Pulse Oximetry Oxygen Delivery Mechanical Ventilation Fraction of Inspired Oxygen 01/30/25 12:00 01/30/25 12:08 01/30/25 12:53 Temperature Pulse Rate 69 54 L Respiratory Rate 16 Blood Pressure Pulse Oximetry 96 Oxygen Delivery Mechanical Ventilation Fraction of Inspired Oxygen 50 50 01/30/25 13:53 01/30/25 14:00 01/30/25 14:00 Temperature Pulse Rate 78 72 72 Respiratory Rate 18 17 17 Blood Pressure Pulse Oximetry Oxygen Delivery Fraction of Inspired Oxygen 01/30/25 14:00 01/30/25 14:00 01/30/25 14:00 Temperature 99.2 F Pulse Rate 72 72 73 Respiratory Rate 18 Blood Pressure 169/80 H 169/80 H Pulse Oximetry 96 Oxygen Delivery Fraction of Inspired Oxygen 01/30/25 14:47 01/30/25 15:00 01/30/25 15:15 Temperature 99.7 F H Pulse Rate 88 70 67 Respiratory Rate 19 16 Blood Pressure 137/58 L Pulse Oximetry 94 92 Oxygen Delivery Mechanical Ventilation Fraction of Inspired Oxygen 50 01/30/25 15:19 01/30/25 15:26 01/30/25 16:00 Temperature Pulse Rate 57 L 60 61 Respiratory Rate 20 20 16 Blood Pressure Pulse Oximetry Oxygen Delivery Fraction of Inspired Oxygen 01/30/25 16:00 01/30/25 16:00 01/30/25 16:00 Temperature Pulse Rate 61 61 61 Respiratory Rate 16 Blood Pressure 120/51 L Pulse Oximetry Oxygen Delivery Fraction of Inspired Oxygen 01/30/25 16:00 01/30/25 16:00 Temperature Pulse Rate Respiratory Rate Blood Pressure Pulse Oximetry Oxygen Delivery Mechanical Ventilation Fraction of Inspired Oxygen 50 Intake/Output Intake/Output: Intake & Output 01/27/25 01/28/25 01/29/25 01/30/25 23:59 23:59 23:59 23:59 Intake Total 2100.4 2672.6 2614.3 1872.5 Output Total 3025 1950 1775 450 Balance -924.6 722.6 839.3 1422.5 Meds/Results Medications: Active Medications Generic Name Dose Route Start Last Admin Trade Name Freq PRN Reason Stop Dose Admin Acetaminophen 650 mg 01/28/25 10:07 01/28/25 16:14 Acetaminophen Elixir 325 Mg/10.15 Ml Udc PO 650 mg Q6H PRN Administration Mild Pain (1-3) or Fever Albuterol/Ipratropium 3 ml 01/24/25 02:00 01/30/25 15:19 Ipratropium 0.5 Mg/Albuterol Sulfate 2.5 Mg (Base) Ampul.Neb 3 Ml INHALATION 3 ml Q6HRT JOCELYNE Administration Amlodipine Besylate 10 mg 01/28/25 09:00 01/28/25 09:23 Amlodipine Besylate 10 Mg Tablet PO 10 mg On Hold: 01/29/25 07:44 DAILY JOCELYNE Administration Aspirin 81 mg 01/30/25 08:00 01/30/25 08:45 Aspirin 81 Mg Chewable Tablet PO 81 mg DAILY@0800 JOCELYNE Administration Atorvastatin Calcium 80 mg 01/24/25 21:00 01/29/25 20:01 Atorvastatin 40 Mg Tablet PO 80 mg QHS JOCELYNE Administration Carvedilol 3.125 mg 01/24/25 21:00 Carvedilol 3.125 Mg Tablet PO On Hold: 01/24/25 21:00 Q12HR JOCELYNE Empagliflozin 10 mg 01/27/25 09:00 01/30/25 08:45 Empagliflozin 10 Mg Tablet PO 10 mg DAILY JOCELYNE Administration Enoxaparin Sodium 40 mg 01/30/25 10:35 01/30/25 10:58 Enoxaparin 40 Mg/0.4 Ml Syringe SUB-Q 40 mg DAILY JOCELYNE Administration Hydralazine HCl 20 mg 01/27/25 19:40 01/29/25 14:52 Hydralazine Hcl 20 Mg/Ml Vial IV PUSH 20 mg Q4HR PRN Administration SBP > 160 Lidocaine HCl/Dextrose 2 gm in 500 mls @ 30 mls/hr 01/24/25 13:30 01/30/25 16:00 Lidocaine In D5w 4 Mg/Ml IV CONT 2 mg/min .[id number] JOCELYNE 30 mls/hr 2 MG/MIN Infusion Fentanyl Citrate 2,500 mcg in 250 mls @ 10 mls/hr 01/29/25 13:40 01/30/25 16:00 Fentanyl 2,500 Mcg/Ns 250 Ml IV CONT 100 mcg/hr .Q25H JOCELYNE 10 mls/hr Protocol Titration 100 MCG/HR Midazolam HCl 100 mg in 100 mls @ 4 mls/hr 01/29/25 13:40 01/30/25 16:00 Versed 100 Mg/Ns 100 Ml IV CONT 4 mg/hr .Q25H JOCELYNE 4 mls/hr Protocol Titration 4 MG/HR Multi-Ingred Cream/Lotion/Oil/Oint 1 applic 12/02/25 09:00 01/30/25 08:57 Mineral Oil/White Petrolatum Ointment EACH EYE 1 applic Q12HR JOCELYNE Administration Pantoprazole Sodium 40 mg 01/24/25 09:00 01/30/25 08:45 Pantoprazole Sodium Iv 40 Mg Vial IV PUSH 40 mg DAILY JOCELYNE Administration Polyethylene Glycol 17 gm 01/27/25 10:14 Polyethylene Glycol 3350 17 Gm Powd.Pack PO QAM PRN Constipation Senna/Docusate Sodium 1 tab 01/27/25 21:00 01/29/25 20:01 Senna/Docusate Sodium Tablet PO 1 tab HS JOCELYNE Administration Sodium Chloride 10 ml 01/24/25 06:00 01/30/25 14:07 Central Line Flush IV PUSH 10 ml Q8HR JOCELYNE Administration Sodium Chloride 20 ml 01/23/25 22:48 Central Line Flush IV PUSH PRN PRN after blood draws Sodium Chloride 10 ml 01/30/25 08:47 Central Line Flush IV PUSH PRN PRN with TPN bag changes Radiology Results: ITS Impressions Head CT 01/23/25 19:11 IMPRESSION: No acute intracranial hemorrhage or extra axial fluid collections. Bilateral mastoiditis. All CT scans at this facility are performed using low dose modulation techniques as appropriate to perform exam including the following: automated exposure control; use of iterative reconstruction technique; adjustment of the mA and/or kV according to patient size (this includes techniques or standardized protocols for targeted exams where dose is matched to indication/reason for exam). Chest/Abdomen/Pelvis CT 01/23/25 19:16 IMPRESSION: Bilateral lower lobe consolidation may represent pneumonia. No acute abdominal or pelvic findings. All CT scans at this facility are performed using low dose modulation techniques as appropriate to perform exam including the following: automated exposure control; use of iterative reconstruction technique; adjustment of the mA and/or kV according to patient size (this includes techniques or standardized protocols for targeted exams where dose is matched to indication/reason for exam). Venous Doppler Study 01/24/25 11:45 IMPRESSION: 1. No DVT either leg. Ankle Brachial Index 01/24/25 11:52 IMPRESSION: 1. Artery pressures and the pressures at the right and left brachial, posterior tibial and dorsalis pedis arteries were unable to be obtained likely due to markedly increased pressures with right and left great toe pressures of 212 and 214 mmHg respectively. Abdomen X-Ray 01/29/25 14:09 Impression: 1. No acute abnormality. Chest X-Ray 01/30/25 08:27 Impression: CHF. Superimposed probable pneumonia. The findings appear minimally improved. Labs Labs: Laboratory Results - last 24 hr 01/29/25 01/29/25 01/30/25 17:31 18:00 00:19 WBC RBC Hgb Hct MCV MCH MCHC RDW Plt Count MPV Immature Gran % (Auto) Neut % (Auto) Lymph % (Auto) Spink % (Auto) Eos % (Auto) Baso % (Auto) Lymph # (Auto) Spink # (Auto) Eos # (Auto) Baso # (Auto) Abs Immat Gran (auto) Absolute Neuts (auto) Absolute Nucleated RBC Nucleated RBC % APTT 71.6 H Puncture Site ABG pH ABG pCO2 ABG pO2 ABG PO2/FiO2 Ratio ABG HCO3 ABG O2 Saturation ABG O2 Content ABG Base Excess A-a Gradient Oxyhemoglobin Carboxyhemoglobin Methemoglobin Reduced Hemoglobin Total Hemoglobin O2 Delivery Device O2 Liters/Min Minute Volume Vent Rate Vent Mode FiO2 Tidal Volume PEEP Peak Inspir Pressure Pressure Support Sodium Potassium Chloride Carbon Dioxide Anion Gap BUN Creatinine Estim Creat Clear Calc Estimated GFR Glucose POC Capillary Glucose 134 H 143 H Calcium Phosphorus Magnesium Total Bilirubin AST ALT Alkaline Phosphatase Total Protein Albumin 01/30/25 01/30/25 01/30/25 04:43 04:48 11:35 WBC 10.2 H RBC 3.28 L Hgb 11.1 L Hct 33.6 L MCV 102.4 H MCH 33.8 MCHC 33.0 RDW 13.9 Plt Count 234 MPV 10.3 Immature Gran % (Auto) 0.8 H Neut % (Auto) 49.8 Lymph % (Auto) 34.3 Spink % (Auto) 13.1 H Eos % (Auto) 1.7 Baso % (Auto) 0.3 Lymph # (Auto) 3.50 H Spink # (Auto) 1.3 H Eos # (Auto) 0.2 Baso # (Auto) 0.0 Abs Immat Gran (auto) 0.08 H Absolute Neuts (auto) 5.1 Absolute Nucleated RBC 0.000 Nucleated RBC % 0.0 APTT 75.3 H Puncture Site Left radial ABG pH 7.498 H ABG pCO2 34.0 L ABG pO2 76.0 L ABG PO2/FiO2 Ratio 1.52 ABG HCO3 25.8 ABG O2 Saturation 96.3 ABG O2 Content 20.8 ABG Base Excess 3.1 A-a Gradient 242.3 Oxyhemoglobin 94.3 Carboxyhemoglobin 0.8 Methemoglobin 0.0 Reduced Hemoglobin 4.9 Total Hemoglobin 15.7 O2 Delivery Device Ventilator O2 Liters/Min Not Reportable Minute Volume Not Reportable Vent Rate 20 Vent Mode Cmv FiO2 50 Tidal Volume 500 PEEP 8 Peak Inspir Pressure Not Reportable Pressure Support Not Reportable Sodium 137 Potassium 3.1 L Chloride 105 Carbon Dioxide 29 Anion Gap 3 L BUN 27 H Creatinine 1.46 H Estim Creat Clear Calc 60 Estimated GFR 47 L Glucose 138 H POC Capillary Glucose 131 H Calcium 8.9 Phosphorus 4.6 H Magnesium 1.9 Total Bilirubin 0.8 AST 86 H ALT 50 Alkaline Phosphatase 74 Total Protein 5.9 L Albumin 3.0 L
[2025-01-30] MEDS: MIDAZOLAM 100MG/NS 100ML(*CRX) 100 MG/100 ML BAG IV CONT (18:59)
[2025-01-30] MEDS: ATORVASTATIN 40 MG TABLET 80 MG PO (20:09)
[2025-01-30] MEDS: SENNA/DOCUSATE SODIUM TABLET 1 TAB PO (20:09)
[2025-01-31] VITALS (43 sets, daily range): BP systolic 105–157; BP diastolic 55–97; PULSE 48–90; RESP 14–24; TEMP 37.2–37.9; O2SAT 88–97
[2025-01-31] MEDS: IPRATROPIUM 0.5 MG/ALBUTEROL SULFATE 2.5 MG (BASE) AMPUL.NEB 3 ML INHALATION ×2 (02:09→08:07)
[2025-01-31 04:41] LABS: Alveolar/Arterial O2 Gradient 228.8 mmHg; Carboxyhemoglobin 0.8 % THb (0-2.0); Fractional Inspired Oxygen 50 %; HCO3 ABG 27.6 mEq/l (22.0-26.0); Methemoglobin ABG 0.0 %THb (0-1.5); Oxygen Content ABG 15.6 %vol (16.0-22.0); Oxygen Saturation ABG 95.4 % (95.0-100.0); PCO2 ABG 45.0 mmHg (35.0-45.0); PO2 ABG 77.1 mmHg (80.0-100.0); PO2 FiO2 Ratio Arterial Blood 1.54 %; Reduced Hemoglobin 5.7 %THb (0-5.0)
[2025-01-31 04:42] LABS: Site Drawn LEFT RADIAL
[2025-01-31 04:43] LABS: Arterial Blood Gas Tidal Volume 500 ml; Arterial Blood Gas Ventilator rate 16 /MIN
[2025-01-31 04:49] LABS: Hematocrit 33.1 % (42.0-52.0); Hemoglobin 10.6 g/dL (14.0-18.0); Immature Granulocyte Percent A 0.9 % (0-0.5); Lymphocytes Absolute Auto 2.05 K/mm3 (0.9-3.2); Mean Corpuscular HGB Conc 32.0 g/dl (32-36); Mean Corpuscular Hemoglobin 33.1 pg (26-34); Mean Corpuscular Volume 103.4 fl (80-100); Nucleated Red Blood Cells Absolute Auto 0.000 K/mm3 (0.0-0.012); Nucleated Red Blood Cells Perc 0.0 % (0.0-0.2); Platelet Count Result 226 k/mm3 (150-375); Red Blood Count 3.20 M/mm3 (4.6-6.20); White Blood Count 8.8 K/mm3 (4.5-10.0)
[2025-01-31 05:12] LABS: Alanine Aminotransferase 63 U/L (6-50); Albumin Level 2.8 g/dL (3.5-5.1); Alkaline Phosphatase 79 U/L (38-126); Anion Gap 2 mmol/L (4-12); Aspartate Amino Transferase 98 U/L (17-59); Bilirubin,Total 0.8 mg/dL (0.2-1.3); Blood Urea Nitrogen 24 mg/dL (9-20); Calcium 8.5 mg/dL (8.4-10.2); Carbon Dioxide 30 mmol/L (22-30); Chloride 106 mmol/L (98-107); Estimated CRCL calculation 73 ml/min; Estimated Glomerular Filt Rate 59; Glucose 116 mg/dL (65-110); Magnesium 1.8 mg/dL (1.6-2.3); Potassium 3.5 mmol/L (3.4-5.0); Sodium 138 mmol/L (137-145); Total Protein 5.7 g/dL (6.3-8.2)
[2025-01-31 05:14] LABS: Partial Thromboplastin Time 33.5 Seconds (22.3-36.8)
[2025-01-31] MEDS: CENTRAL LINE FLUSH 10 ML IV PUSH ×3 (06:10→19:58)
[2025-01-31] MEDS: FENTANYL 2,500MCG/NS250ML(*CRX 2,500 MCG/250 ML BAG 10 MCG IV CONT (07:40)
[2025-01-31] MEDS: ENOXAPARIN 40 MG/0.4 ML SYRINGE SUB-Q (09:06)
[2025-01-31] MEDS: ASPIRIN 81 MG CHEWABLE TABLET PO (09:06)
[2025-01-31] MEDS: EMPAGLIFLOZIN 10 MG TABLET PO (09:06)
[2025-01-31] MEDS: PANTOPRAZOLE SODIUM IV 40 MG VIAL IV PUSH (09:06)
[2025-01-31] MEDS: POTASSIUM CHLORIDE 20 MEQ PACKET (FOR LIQUID) 40 MEQ FEED TUBE ×2 (09:06→13:39)
[2025-01-31] MEDS: MINERAL OIL/WHITE PETROLATUM OINTMENT 1 APPLIC EACH EYE ×2 (09:06→19:58)
[2025-01-31] MEDS: BUMETANIDE INJ 1 MG/4 ML VIAL IV PUSH ×2 (09:06→17:30)
--- NOTE | 2025-01-31 09:13 | P.PNINT_ITS ---
Assessment and Plan Assessment and Plan (1) Acute respiratory failure: Code(s): J96.00 - Acute respiratory failure, unspecified whether with hypoxia or hypercapnia Status: Acute Assessment and Plan: Acute respiratory failure likely related to cardiac arrest. Also pulmonary edema, pneumonia as seen on CT chest -intubated on 01/23/2025 - 01/29/2025: Extubated only to be intubated because he went into SVT, in V- tach/brief VFib, altered mental status, respiratory distress -01/29: Re-intubated for the reasons above. chest x-ray post intubation showed flash pulmonary edema -01/30: continue CMV mode of ventilation, peep of 8, 50% FiO2, will wean FiO2 to maintain O2 sats> 92% 01/31 wean FiO2 40%. Lasix IV. Continue mechanical ventilation and the patient undergoes cardiac catheterization - currently sedated with fentanyl and Versed infusion - maintain RASS of 0 to -2 (2) Encephalopathy: Code(s): G93.40 - Encephalopathy, unspecified Status: Acute Assessment and Plan: Post cardiac arrest encephalopathy, status post targeted temperature management. He came off all sedation on 01/27/2025 at 8:00 a.m.. He opened is eyes, tracked, nods to questions, follows simple commands with upper extremities, moves lower extremities spontaneous He was extubated reintubated now he is back on sedation (3) Cardiac arrest with ventricular fibrillation: Code(s): I46.9 - Cardiac arrest, cause unspecified; I49.01 - Ventricular fibrillation Status: Acute Assessment and Plan: 01/23: Patient presented the ED with dizziness and nausea. While he was in the ER waiting room, went unresponsive, was in VFib arrest -status post VFib cardiac arrest, requiring defibrillation x1, epinephrine x1 and CPR before ROSC. 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 01/28: Patient went into SVT on early this morning with V-tach, converted to sinus rhythm with metoprolol 5 mg IV x1. Increased lidocaine to 1.5 mg/min. Discuss with cardiology will add metoprolol 25 mg p.o. q.12 hours 01/29: post extubation patient went into SVT For which he was given adenosine 6 mg and 12 mg., Nonsustained V-tach and brief V fib, post intubation patient converted to sinus rhythm with PVCs, lidocaine was increased to 2 mg/min. discussed with Dr. Fraga. 01/30: discussed with cardiology, patient will need to be transferred to higher level of care for high-risk PCI or CABG as once he was extubated went into flash pulmonary edema likely related to multivessel disease and arrhythmia 01/31 cardiology planning for repeat cardiac catheterization and attempt PCI. He is currently on lidocaine infusion (4) Mixed hyperlipidemia: Code(s): E78.2 - Mixed hyperlipidemia Status: Acute Assessment and Plan: Contain atorvastatin (5) Chronic atrial fibrillation: Code(s): I48.20 - Chronic atrial fibrillation, unspecified Status: Acute Assessment and Plan: Currently in ventricular bigeminy, off amiodarone infusion and Coreg 01/30: Patient has been having increasing bloody secretions from the ET tube. Discussed with Cardiology regarding holding heparin infusion for now, Cardiology is agreeable. Plan DVT prophylaxis: prophylactic Lovenox SQ starting 01/31/2025 Stress ulcer prophylaxis: Protonix Nutrition: Tolerating tube feeds Code Status: Full code Critical Care Time Spent: 30 minutes Due to a high probability of clinically significant, life threatening deterioration, the patient required my highest level of preparedness to intervene emergently and I personally spent this critical care time directly and personally managing the patient. This critical care time included obtaining a history; examining the patient; pulse oximetry; ordering and review of studies; arranging urgent treatment with development of a management plan; evaluation of patient's response to treatment; frequent reassessment; and discussions with other providers. It was exclusive of separately billable procedures and treating other patients and teaching time. Please see Assessment and Plan section and the rest of the note for further information on patient assessment and treatment This dictation may have been done utilizing a voice recognition system. Attempts have been made to correct errors. However, there may be uncorrected grammatical, spelling, and recognitions errors present. Subjective Date/time seen: 01/31/25 Overnight events reviewed. Afebrile Continues to be on mechanical ventilation 50% FiO2 and 8 of PEEP Acceptable urine output Continues to be sedated Sinus bradycardia on the monitor Vitals acceptable Acceptable urine output Tolerating tube feeds Review of Systems Review of Systems: ROS unobtainable: Yes unobtainable due to endotracheal tube, unobtainable due to medical condition and unobtainable due to mental status Exam Narrative: General: Intubated, not in any distress HEENT:? Pupils equal and reactive, sclera is clear, ETT in place Neck:? Supple Respiratory:? Coarse breath sounds bilaterally, decreased at bases, no wheeze Cardiac:? Sinus rhythm, rate controlled Abdomen:? Soft, nontender, nondistended, hypoactive bowel sounds Extremities:? Trace edema bilaterally, palpable pulses. Ruptured blisters noted on the right hand, edematous currently in a splint and Heber wrap Neuro:? Patient is intubated, sedated, does not open his eyes are follow simple commands, Skin:? No lesions noted Psych:? Unable to assess at this time Objective Data Vital Signs Vital Signs: Vital Signs - 24 hr 01/30/25 10:00 01/30/25 10:00 01/30/25 10:00 Temperature Pulse Rate 52 L 52 L 52 L Respiratory Rate 16 16 Blood Pressure 114/59 L Pulse Oximetry Oxygen Delivery Fraction of Inspired Oxygen 01/30/25 10:00 01/30/25 10:00 01/30/25 11:00 Temperature 37.4 C 37.4 C Pulse Rate 53 L 54 L 53 L Respiratory Rate 16 16 Blood Pressure 114/59 L 129/62 Pulse Oximetry 95 94 Oxygen Delivery Fraction of Inspired Oxygen 01/30/25 11:16 01/30/25 11:28 01/30/25 11:29 Temperature Pulse Rate 68 70 70 Respiratory Rate 18 19 18 Blood Pressure Pulse Oximetry Oxygen Delivery Fraction of Inspired Oxygen 01/30/25 12:00 01/30/25 12:00 01/30/25 12:00 Temperature 37.4 C Pulse Rate 83 80 80 Respiratory Rate 18 20 Blood Pressure 179/77 H 179/77 H Pulse Oximetry 94 Oxygen Delivery Fraction of Inspired Oxygen 01/30/25 12:00 01/30/25 12:00 01/30/25 12:00 Temperature Pulse Rate 80 81 Respiratory Rate 20 Blood Pressure Pulse Oximetry Oxygen Delivery Mechanical Ventilation Fraction of Inspired Oxygen 01/30/25 12:00 01/30/25 12:08 01/30/25 12:53 Temperature Pulse Rate 69 54 L Respiratory Rate 16 Blood Pressure Pulse Oximetry 96 Oxygen Delivery Mechanical Ventilation Fraction of Inspired Oxygen 50 50 01/30/25 13:53 01/30/25 14:00 01/30/25 14:00 Temperature Pulse Rate 78 72 72 Respiratory Rate 18 17 17 Blood Pressure Pulse Oximetry Oxygen Delivery Fraction of Inspired Oxygen 01/30/25 14:00 01/30/25 14:00 01/30/25 14:00 Temperature 37.3 C Pulse Rate 72 72 73 Respiratory Rate 18 Blood Pressure 169/80 H 169/80 H Pulse Oximetry 96 Oxygen Delivery Fraction of Inspired Oxygen 01/30/25 14:47 01/30/25 15:00 01/30/25 15:15 Temperature 37.6 C H Pulse Rate 88 70 67 Respiratory Rate 19 16 Blood Pressure 137/58 L Pulse Oximetry 94 92 Oxygen Delivery Mechanical Ventilation Fraction of Inspired Oxygen 50 01/30/25 15:19 01/30/25 15:26 01/30/25 16:00 Temperature Pulse Rate 57 L 60 61 Respiratory Rate 20 20 16 Blood Pressure Pulse Oximetry Oxygen Delivery Fraction of Inspired Oxygen 01/30/25 16:00 01/30/25 16:00 01/30/25 16:00 Temperature Pulse Rate 61 61 61 Respiratory Rate 16 Blood Pressure 120/51 L Pulse Oximetry Oxygen Delivery Fraction of Inspired Oxygen 01/30/25 16:00 01/30/25 16:00 01/30/25 16:00 Temperature 37.6 C Pulse Rate 60 Respiratory Rate 16 Blood Pressure 120/51 L Pulse Oximetry 91 Oxygen Delivery Mechanical Ventilation Fraction of Inspired Oxygen 50 01/30/25 17:00 01/30/25 17:53 01/30/25 18:00 Temperature 37.4 C Pulse Rate 54 L 53 L 53 L Respiratory Rate 16 16 Blood Pressure 118/52 L Pulse Oximetry 93 93 Oxygen Delivery Mechanical Ventilation Fraction of Inspired Oxygen 50 01/30/25 18:00 01/30/25 18:00 01/30/25 18:00 Temperature Pulse Rate 53 L 53 L 53 L Respiratory Rate 16 Blood Pressure 119/58 L Pulse Oximetry Oxygen Delivery Fraction of Inspired Oxygen 01/30/25 18:00 01/30/25 18:41 01/30/25 18:54 Temperature 37.4 C Pulse Rate 53 L 66 66 Respiratory Rate 16 Blood Pressure 119/58 L 119/58 L 119/58 L Pulse Oximetry 94 Oxygen Delivery Fraction of Inspired Oxygen 01/30/25 18:59 01/30/25 18:59 01/30/25 19:00 Temperature 37.7 C H Pulse Rate 70 70 70 Respiratory Rate 17 17 18 Blood Pressure 166/84 H Pulse Oximetry 93 Oxygen Delivery Fraction of Inspired Oxygen 01/30/25 20:00 01/30/25 20:00 01/30/25 20:00 Temperature 37.6 C H Pulse Rate 55 L 55 L 55 L Respiratory Rate 16 16 Blood Pressure 118/59 L 118/59 L Pulse Oximetry 93 Oxygen Delivery Fraction of Inspired Oxygen 01/30/25 20:00 01/30/25 20:00 01/30/25 20:00 Temperature Pulse Rate 55 L Respiratory Rate 16 Blood Pressure Pulse Oximetry Oxygen Delivery Mechanical Ventilation Fraction of Inspired Oxygen 50 50 01/30/25 20:00 01/30/25 20:52 01/30/25 20:52 Temperature Pulse Rate 55 L 58 L 58 L Respiratory Rate 16 Blood Pressure Pulse Oximetry 94 Oxygen Delivery Mechanical Ventilation Fraction of Inspired Oxygen 50 01/30/25 21:00 01/30/25 21:00 01/30/25 22:00 Temperature 37.5 C Pulse Rate 62 56 L 53 L Respiratory Rate 16 16 Blood Pressure 114/62 Pulse Oximetry 98 Oxygen Delivery Fraction of Inspired Oxygen 01/30/25 22:00 01/30/25 22:00 01/30/25 22:00 Temperature 37.5 C Pulse Rate 53 L 53 L 53 L Respiratory Rate 16 16 Blood Pressure 108/59 L 108/59 L Pulse Oximetry 94 Oxygen Delivery Fraction of Inspired Oxygen 01/30/25 22:00 01/30/25 23:00 01/30/25 23:00 Temperature 37.5 C Pulse Rate 53 L 56 L 55 L Respiratory Rate 16 16 Blood Pressure 105/61 Pulse Oximetry 94 94 Oxygen Delivery Mechanical Ventilation Fraction of Inspired Oxygen 50 01/30/25 23:33 01/30/25 23:34 01/31/25 00:00 Temperature 37.5 C Pulse Rate 50 L Respiratory Rate 16 Blood Pressure 115/58 L Pulse Oximetry 93 Oxygen Delivery Mechanical Ventilation Fraction of Inspired Oxygen 50 50 01/31/25 00:00 01/31/25 00:00 01/31/25 00:00 Temperature Pulse Rate 50 L 50 L 50 L Respiratory Rate 16 16 Blood Pressure 115/58 L Pulse Oximetry Oxygen Delivery Fraction of Inspired Oxygen 01/31/25 00:00 01/31/25 01:00 01/31/25 02:00 Temperature 37.4 C 37.4 C Pulse Rate 50 L 51 L 53 L Respiratory Rate 16 14 Blood Pressure 110/61 105/55 L Pulse Oximetry 94 94 Oxygen Delivery Fraction of Inspired Oxygen 01/31/25 02:00 01/31/25 02:00 01/31/25 02:00 Temperature Pulse Rate 53 L 53 L 53 L Respiratory Rate 14 Blood Pressure 105/55 L Pulse Oximetry Oxygen Delivery Fraction of Inspired Oxygen 01/31/25 02:00 01/31/25 02:09 01/31/25 02:14 Temperature Pulse Rate 53 L 51 L 51 L Respiratory Rate 14 16 Blood Pressure Pulse Oximetry 94 Oxygen Delivery Mechanical Ventilation Fraction of Inspired Oxygen 50 01/31/25 02:17 01/31/25 02:40 01/31/25 02:40 Temperature Pulse Rate 58 L 75 75 Respiratory Rate 16 24 H 22 H Blood Pressure Pulse Oximetry Oxygen Delivery Fraction of Inspired Oxygen 01/31/25 03:00 01/31/25 04:00 01/31/25 04:00 Temperature 37.4 C 37.4 C Pulse Rate 63 55 L Respiratory Rate 19 16 Blood Pressure 157/66 H 138/66 Pulse Oximetry 95 92 Oxygen Delivery Fraction of Inspired Oxygen 50 01/31/25 04:00 01/31/25 04:00 01/31/25 04:00 Temperature Pulse Rate 55 L 55 L 55 L Respiratory Rate 16 16 Blood Pressure 138/66 Pulse Oximetry Oxygen Delivery Fraction of Inspired Oxygen 01/31/25 04:00 01/31/25 04:00 01/31/25 04:44 Temperature Pulse Rate 75 62 Respiratory Rate Blood Pressure Pulse Oximetry 94 Oxygen Delivery Mechanical Ventilation Mechanical Ventilation Fraction of Inspired Oxygen 50 50 01/31/25 05:00 01/31/25 06:00 01/31/25 06:00 Temperature 37.2 C 37.3 C Pulse Rate 58 L 50 L 49 L Respiratory Rate 16 16 Blood Pressure 114/58 L 112/57 L Pulse Oximetry 95 96 Oxygen Delivery Fraction of Inspired Oxygen 01/31/25 06:00 01/31/25 06:00 01/31/25 07:00 Temperature 37.3 C Pulse Rate 49 L 49 L 50 L Respiratory Rate 16 16 16 Blood Pressure 114/68 Pulse Oximetry 97 Oxygen Delivery Fraction of Inspired Oxygen 01/31/25 07:00 01/31/25 07:00 01/31/25 07:00 Temperature Pulse Rate 50 L 50 L 50 L Respiratory Rate 16 16 Blood Pressure 114/68 Pulse Oximetry Oxygen Delivery Fraction of Inspired Oxygen 01/31/25 07:38 01/31/25 07:40 01/31/25 07:40 Temperature Pulse Rate 48 L 48 L 48 L Respiratory Rate 16 16 16 Blood Pressure Pulse Oximetry Oxygen Delivery Fraction of Inspired Oxygen 01/31/25 08:00 01/31/25 08:08 01/31/25 08:13 Temperature 37.4 C Pulse Rate 50 L 50 L 57 L Respiratory Rate 16 16 Blood Pressure 113/60 Pulse Oximetry 97 94 Oxygen Delivery Mechanical Ventilation Fraction of Inspired Oxygen 50 01/31/25 08:19 Temperature Pulse Rate 56 L Respiratory Rate 16 Blood Pressure Pulse Oximetry Oxygen Delivery Fraction of Inspired Oxygen Intake/Output Intake/Output: Intake & Output 01/28/25 01/29/25 01/30/25 01/31/25 23:59 23:59 23:59 23:59 Intake Total 2672.6 2614.3 3085.5 1296.6 Output Total 1950 1775 1650 1000 Balance 722.6 839.3 1435.5 296.6 Meds/Results Medications: Active Medications Generic Name Dose Route Start Last Admin Trade Name Freq PRN Reason Stop Dose Admin Acetaminophen 650 mg 01/28/25 10:07 01/28/25 16:14 Acetaminophen Elixir 325 Mg/10.15 Ml Udc PO 650 mg Q6H PRN Administration Mild Pain (1-3) or Fever Albuterol/Ipratropium 3 ml 01/31/25 08:32 Ipratropium 0.5 Mg/Albuterol Sulfate 2.5 Mg (Base) Ampul.Neb 3 Ml INHALATION Q6HRT PRN wheezing Aspirin 81 mg 01/30/25 08:00 01/31/25 09:06 Aspirin 81 Mg Chewable Tablet PO 81 mg DAILY@0800 JOCELYNE Administration Atorvastatin Calcium 80 mg 01/24/25 21:00 01/30/25 20:09 Atorvastatin 40 Mg Tablet PO 80 mg QHS JOCELYNE Administration Bumetanide 1 mg 01/31/25 09:00 01/31/25 09:06 Bumetanide Inj 1 Mg/4 Ml Vial IV PUSH 1 mg BID JOCELYNE Administration Carvedilol 3.125 mg 01/24/25 21:00 Carvedilol 3.125 Mg Tablet PO On Hold: 01/24/25 21:00 Q12HR JOCELYNE Empagliflozin 10 mg 01/27/25 09:00 01/31/25 09:06 Empagliflozin 10 Mg Tablet PO 10 mg DAILY JOCELYNE Administration Enoxaparin Sodium 40 mg 01/30/25 10:35 01/31/25 09:06 Enoxaparin 40 Mg/0.4 Ml Syringe SUB-Q 40 mg DAILY JOCELYNE Administration Hydralazine HCl 20 mg 01/27/25 19:40 01/29/25 14:52 Hydralazine Hcl 20 Mg/Ml Vial IV PUSH 20 mg Q4HR PRN Administration SBP > 160 Lidocaine HCl/Dextrose 2 gm in 500 mls @ 30 mls/hr 01/24/25 13:30 01/31/25 07:00 Lidocaine In D5w 4 Mg/Ml IV CONT 2 mg/min .[id number] JOCELYNE 30 mls/hr 2 MG/MIN Infusion Fentanyl Citrate 2,500 mcg in 250 mls @ 10 mls/hr 01/29/25 13:40 01/31/25 07:40 Fentanyl 2,500 Mcg/Ns 250 Ml IV CONT 100 mcg/hr .Q25H JOCELYNE 10 mls/hr Protocol Administration 100 MCG/HR Midazolam HCl 100 mg in 100 mls @ 3 mls/hr 01/29/25 13:40 01/31/25 07:38 Versed 100 Mg/Ns 100 Ml IV CONT 3 mg/hr .[id number] JOCELYNE 3 mls/hr Protocol Titration 3 MG/HR Multi-Ingred Cream/Lotion/Oil/Oint 1 applic 01/24/25 09:00 01/31/25 09:06 Mineral Oil/White Petrolatum Ointment EACH EYE 1 applic Q12HR JOCELYNE Administration Pantoprazole Sodium 40 mg 01/24/25 09:00 01/31/25 09:06 Pantoprazole Sodium Iv 40 Mg Vial IV PUSH 40 mg DAILY JOCELYNE Administration Polyethylene Glycol 17 gm 01/27/25 10:14 Polyethylene Glycol 3350 17 Gm Powd.Pack PO QAM PRN Constipation Potassium Chloride 40 meq 01/31/25 13:00 Potassium Chloride 20 Meq Packet (For Liquid) FEED TUBE 01/31/25 13:01 ONCE ONE Senna/Docusate Sodium 1 tab 01/27/25 21:00 01/30/25 20:09 Senna/Docusate Sodium Tablet PO 1 tab HS JOCELYNE Administration Sodium Chloride 10 ml 01/24/25 06:00 01/31/25 06:10 Central Line Flush IV PUSH 10 ml Q8HR JOCELYNE Administration Sodium Chloride 20 ml 01/23/25 22:48 Central Line Flush IV PUSH PRN PRN after blood draws Sodium Chloride 10 ml 01/30/25 08:47 Central Line Flush IV PUSH PRN PRN with TPN bag changes Radiology Results: ITS Impressions Head CT 01/23/25 19:11 IMPRESSION: No acute intracranial hemorrhage or extra axial fluid collections. Bilateral mastoiditis. All CT scans at this facility are performed using low dose modulation techniques as appropriate to perform exam including the following: automated exposure control; use of iterative reconstruction technique; adjustment of the mA and/or kV according to patient size (this includes techniques or standardized protocols for targeted exams where dose is matched to indication/reason for exam). Chest/Abdomen/Pelvis CT 01/23/25 19:16 IMPRESSION: Bilateral lower lobe consolidation may represent pneumonia. No acute abdominal or pelvic findings. All CT scans at this facility are performed using low dose modulation techniq ues as appropriate to perform exam including the following: automated exposure control; use of iterative reconstruction technique; adjustment of the mA and/or kV according to patient size (this includes techniques or standardized protocols for targeted exams where dose is matched to indication/reason for exam). Venous Doppler Study 01/24/25 11:45 IMPRESSION: 1. No DVT either leg. Ankle Brachial Index 01/24/25 11:52 IMPRESSION: 1. Artery pressures and the pressures at the right and left brachial, posterior tibial and dorsalis pedis arteries were unable to be obtained likely due to markedly increased pressures with right and left great toe pressures of 212 and 214 mmHg respectively. Abdomen X-Ray 01/29/25 14:09 Impression: 1. No acute abnormality. Chest X-Ray 01/31/25 08:28 IMPRESSION: 1. No significant cardiopulmonary change. 2. New left PICC, tip poorly seen but probably lower SVC. Labs Labs: Laboratory Results - last 24 hr 01/30/25 01/30/25 01/30/25 11:35 18:03 23:29 WBC RBC Hgb Hct MCV MCH MCHC RDW Plt Count MPV Immature Gran % (Auto) Neut % (Auto) Lymph % (Auto) Bartholomew % (Auto) Eos % (Auto) Baso % (Auto) Lymph # (Auto) Bartholomew # (Auto) Eos # (Auto) Baso # (Auto) Abs Immat Gran (auto) Absolute Neuts (auto) Absolute Nucleated RBC Nucleated RBC % APTT Puncture Site ABG pH ABG pCO2 ABG pO2 ABG PO2/FiO2 Ratio ABG HCO3 ABG O2 Saturation ABG O2 Content ABG Base Excess A-a Gradient Oxyhemoglobin Carboxyhemoglobin Methemoglobin Reduced Hemoglobin Total Hemoglobin O2 Delivery Device O2 Liters/Min Minute Volume Vent Rate Vent Mode FiO2 Tidal Volume PEEP Peak Inspir Pressure Pressure Support Sodium Potassium Chloride Carbon Dioxide Anion Gap BUN Creatinine Estim Creat Clear Calc Estimated GFR Glucose POC Capillary Glucose 131 H 128 H 135 H Calcium Phosphorus Magnesium Total Bilirubin AST ALT Alkaline Phosphatase Total Protein Albumin 01/31/25 01/31/25 04:21 04:37 WBC 8.8 RBC 3.20 L Hgb 10.6 L Hct 33.1 L MCV 103.4 H MCH 33.1 MCHC 32.0 RDW 13.9 Plt Count 226 MPV 10.1 Immature Gran % (Auto) 0.9 H Neut % (Auto) 57.7 Lymph % (Auto) 23.4 Bartholomew % (Auto) 14.5 H Eos % (Auto) 3.0 Baso % (Auto) 0.5 Lymph # (Auto) 2.05 Bartholomew # (Auto) 1.3 H Eos # (Auto) 0.3 Baso # (Auto) 0.0 Abs Immat Gran (auto) 0.08 H Absolute Neuts (auto) 5.1 Absolute Nucleated RBC 0.000 Nucleated RBC % 0.0 APTT 33.5 Puncture Site Left radial ABG pH 7.405 ABG pCO2 45.0 ABG pO2 77.1 L ABG PO2/FiO2 Ratio 1.54 ABG HCO3 27.6 H ABG O2 Saturation 95.4 ABG O2 Content 15.6 L ABG Base Excess 2.4 A-a Gradient 228.8 Oxyhemoglobin 93.5 Carboxyhemoglobin 0.8 Methemoglobin 0.0 Reduced Hemoglobin 5.7 H Total Hemoglobin 11.8 L O2 Delivery Device Ventilator O2 Liters/Min Not Reportable Minute Volume Not Reportable Vent Rate 16 Vent Mode Cmv FiO2 50 Tidal Volume 500 PEEP 8 Peak Inspir Pressure Not Reportable Pressure Support Not Reportable Sodium 138 Potassium 3.5 Chloride 106 Carbon Dioxide 30 Anion Gap 2 L BUN 24 H Creatinine 1.20 Estim Creat Clear Calc 73 Estimated GFR 59 Glucose 116 H POC Capillary Glucose Calcium 8.5 Phosphorus 4.8 H Magnesium 1.8 Total Bilirubin 0.8 AST 98 H ALT 63 H Alkaline Phosphatase 79 Total Protein 5.7 L Albumin 2.8 L Quality VTE Prophylaxis VTE prophylaxis: pharmacologic ordered
--- NOTE | 2025-01-31 11:22 | PCNFU ---
Nutrition Follow-Up Complete: Suboptimal Energy Intake as related to mechanical ventilation as evidenced by NPO.. Goal: Meet estimated nutritional needs. Patient will continue current goal. Pt current nutrition is Vital AF 1.2 at 65 ml/hr. Last recorded weight is 160 kg Bowel Motility: Last reported BM f12/8 Labs Reviewed:Glu 116, K 4.8, Hct 33.1, Hgb 10.6, BUN 24 Meds Noted:Versed, Miralax, Fentanyl,Bumex Skin: WNL Additional Notes: Patient remains on a mechanical vent. Tube feedings are being tolerated of Vital AF 1.2 at 65 ml/hr, providing 1716 kcal/107 gm protein/1160 ml water. Flush 30 ml q 4 hours. Meeting 91% kcal needs at 25 kcal/kg and 100% protein needs at 1.2-1.54 gm/kg. Agree with diet order at this time. Will monitor weight, labs, skin, diet orders, meds every Thursday and Thursday.
--- NOTE | 2025-01-31 12:05 | P.PNCA_ITS ---
Progress Note: A&P Assessment and Plan (1) Cardiac arrest with ventricular fibrillation: Code(s): I46.9 - Cardiac arrest, cause unspecified; I49.01 - Ventricular fibrillation Status: Acute (2) Chronic atrial fibrillation: Code(s): I48.20 - Chronic atrial fibrillation, unspecified Status: Acute (3) Coronary artery disease involving [place] coronary artery of [place] heart without angina pectoris: Code(s): I25.10 - Atherosclerotic heart disease of [place] coronary artery without angina pectoris Status: Acute (4) Moderate aortic stenosis: Code(s): I35.0 - Nonrheumatic aortic (valve) stenosis Status: Acute Plan 79-year-old man with chronic systolic heart failure (LVEF 45-50% in 2021), chronic atrial fibrillation status post ablation on Eliquis, coronary artery disease, hypertension, and alcohol abuse who initially presented a week after mechanical fall with right wrist fracture with superficial infection who suffered a VFib arrest who underwent hypothermic protocol and cardiac catheterization showing multivessel obstructive CAD and an echocardiogram showing moderate aortic stenosis with relatively preserved biventricular systolic function who was briefly extubated and following commands now underwent another episode of VFIB arrest and now re-intubated VFib arrest status post ROSC -sp hypothermic protocol -mental status intact after extubation -unfortunately, is now reintubated due to another episode of ventricular fibrillation arrest -continue lidocaine drip given concerns of ischemic electrical instability-will wean down to 1mg as now with HR in the 50s, will also check lidocaine level NSTEMI -was found to have severe obstructive CAD and likely mid LAD is the culprit -continue aspirin 81 mg p.o. daily and atorvastatin 80 mg every evening -carvedilol 3.125 mg p.o. b.i.d. can be uptitrated for goal HR <70 -will initiate transfer for CT surgery consultation versus mid LAD PCI Chronic atrial fibrillation status post ablation -Eliquis on hold given blood in the ET tube -home amiodarone on hold Moderate aortic stenosis -CTS consultation given his severe multivessel obstructive CAD -likely to progress to severe in near future Spoke with Dr. Bowman this am regarding this patient Will plan to decrease lidocaine drip secondary to bradycardia, will wean to off will monitor for any recurrence of VF/VT-if noted plan transfer to higher level of care At this time he feels arrythmia is ischemic driven and patient is planned for intervetion of MLAD on with Dr. Bowman as he has reviewed this case with CTS at [facility]. Subjective Date/time seen: 01/31/25 12:05 Interval history: He was extubated over the weekend and was following commands. Unfortunately he became hypoxic and suffered another ventricular fibrillation arrest. He is now reintubated. 01/31/25: Patient remains on vent support. No further reports of VT/VF this am. Did have an episode of SVT yesterday. Remains on lidocaine drip, but HR in the 50s at this time Review of Systems Review of Systems: ROS unobtainable: Yes unobtainable due to endotracheal tube Exam Narrative: General: Sedated and intubated Neck: Supple, unable to assess JVD due to patient being intubated Chest: Bibasilar crackles present, no rhonchi Cardiac: S1, S2 +, regular rate, regular rhythm, no murmurs or rubs Extremities: Bilateral lower extremity edema 1+, no skin rash Neurologic: Sedated and intubated Objective Data Vital Signs Vital Signs: Vital Signs - 24 hr 01/30/25 12:08 01/30/25 12:53 01/30/25 13:53 Temperature Pulse Rate 69 54 L 78 Respiratory Rate 16 18 Blood Pressure Pulse Oximetry 96 Oxygen Delivery Mechanical Ventilation Fraction of Inspired Oxygen 50 01/30/25 14:00 01/30/25 14:00 01/30/25 14:00 Temperature Pulse Rate 72 72 72 Respiratory Rate 17 17 Blood Pressure Pulse Oximetry Oxygen Delivery Fraction of Inspired Oxygen 01/30/25 14:00 01/30/25 14:00 01/30/25 14:47 Temperature 37.3 C Pulse Rate 72 73 88 Respiratory Rate 18 19 Blood Pressure 169/80 H 169/80 H Pulse Oximetry 96 Oxygen Delivery Fraction of Inspired Oxygen 01/30/25 15:00 01/30/25 15:15 01/30/25 15:19 Temperature 37.6 C H Pulse Rate 70 67 57 L Respiratory Rate 16 20 Blood Pressure 137/58 L Pulse Oximetry 94 92 Oxygen Delivery Mechanical Ventilation Fraction of Inspired Oxygen 50 01/30/25 15:26 01/30/25 16:00 01/30/25 16:00 Temperature Pulse Rate 60 61 61 Respiratory Rate 20 16 Blood Pressure 120/51 L Pulse Oximetry Oxygen Delivery Fraction of Inspired Oxygen 01/30/25 16:00 01/30/25 16:00 01/30/25 16:00 Temperature Pulse Rate 61 61 Respiratory Rate 16 Blood Pressure Pulse Oximetry Oxygen Delivery Fraction of Inspired Oxygen 50 01/30/25 16:00 01/30/25 16:00 01/30/25 17:00 Temperature 37.6 C 37.4 C Pulse Rate 60 54 L Respiratory Rate 16 16 Blood Pressure 120/51 L 118/52 L Pulse Oximetry 91 93 Oxygen Delivery Mechanical Ventilation Fraction of Inspired Oxygen 01/30/25 17:53 01/30/25 18:00 01/30/25 18:00 Temperature Pulse Rate 53 L 53 L 53 L Respiratory Rate 16 Blood Pressure 119/58 L Pulse Oximetry 93 Oxygen Delivery Mechanical Ventilation Fraction of Inspired Oxygen 50 01/30/25 18:00 01/30/25 18:00 01/30/25 18:00 Temperature 37.4 C Pulse Rate 53 L 53 L 53 L Respiratory Rate 16 16 Blood Pressure 119/58 L Pulse Oximetry 94 Oxygen Delivery Fraction of Inspired Oxygen 01/30/25 18:41 01/30/25 18:54 01/30/25 18:59 Temperature Pulse Rate 66 66 70 Respiratory Rate 17 Blood Pressure 119/58 L 119/58 L Pulse Oximetry Oxygen Delivery Fraction of Inspired Oxygen 01/30/25 18:59 01/30/25 19:00 01/30/25 20:00 Temperature 37.7 C H 37.6 C H Pulse Rate 70 70 55 L Respiratory Rate 17 18 16 Blood Pressure 166/84 H 118/59 L Pulse Oximetry 93 93 Oxygen Delivery Fraction of Inspired Oxygen 01/30/25 20:00 01/30/25 20:00 01/30/25 20:00 Temperature Pulse Rate 55 L 55 L 55 L Respiratory Rate 16 16 Blood Pressure 118/59 L Pulse Oximetry Oxygen Delivery Fraction of Inspired Oxygen 01/30/25 20:00 01/30/25 20:00 01/30/25 20:00 Temperature Pulse Rate 55 L Respiratory Rate Blood Pressure Pulse Oximetry Oxygen Delivery Mechanical Ventilation Fraction of Inspired Oxygen 50 50 01/30/25 20:52 01/30/25 20:52 01/30/25 21:00 Temperature Pulse Rate 58 L 58 L 62 Respiratory Rate 16 16 Blood Pressure Pulse Oximetry 94 Oxygen Delivery Mechanical Ventilation Fraction of Inspired Oxygen 50 01/30/25 21:00 01/30/25 22:00 01/30/25 22:00 Temperature 37.5 C 37.5 C Pulse Rate 56 L 53 L 53 L Respiratory Rate 16 16 Blood Pressure 114/62 108/59 L Pulse Oximetry 98 94 Oxygen Delivery Fraction of Inspired Oxygen 01/30/25 22:00 01/30/25 22:00 01/30/25 22:00 Temperature Pulse Rate 53 L 53 L 53 L Respiratory Rate 16 16 Blood Pressure 108/59 L Pulse Oximetry Oxygen Delivery Fraction of Inspired Oxygen 01/30/25 23:00 01/30/25 23:00 01/30/25 23:33 Temperature 37.5 C Pulse Rate 56 L 55 L Respiratory Rate 16 Blood Pressure 105/61 Pulse Oximetry 94 94 Oxygen Delivery Mechanical Ventilation Mechanical Ventilation Fraction of Inspired Oxygen 50 50 01/30/25 23:34 01/31/25 00:00 01/31/25 00:00 Temperature 37.5 C Pulse Rate 50 L 50 L Respiratory Rate 16 16 Blood Pressure 115/58 L Pulse Oximetry 93 Oxygen Delivery Fraction of Inspired Oxygen 50 01/31/25 00:00 01/31/25 00:00 01/31/25 00:00 Temperature Pulse Rate 50 L 50 L 50 L Respiratory Rate 16 Blood Pressure 115/58 L Pulse Oximetry Oxygen Delivery Fraction of Inspired Oxygen 01/31/25 01:00 01/31/25 02:00 01/31/25 02:00 Temperature 37.4 C 37.4 C Pulse Rate 51 L 53 L 53 L Respiratory Rate 16 14 Blood Pressure 110/61 105/55 L Pulse Oximetry 94 94 Oxygen Delivery Fraction of Inspired Oxygen 01/31/25 02:00 01/31/25 02:00 01/31/25 02:00 Temperature Pulse Rate 53 L 53 L 53 L Respiratory Rate 14 14 Blood Pressure 105/55 L Pulse Oximetry Oxygen Delivery Fraction of Inspired Oxygen 01/31/25 02:09 01/31/25 02:14 01/31/25 02:17 Temperature Pulse Rate 51 L 51 L 58 L Respiratory Rate 16 16 Blood Pressure Pulse Oximetry 94 Oxygen Delivery Mechanical Ventilation Fraction of Inspired Oxygen 50 01/31/25 02:40 01/31/25 02:40 01/31/25 03:00 Temperature 37.4 C Pulse Rate 75 75 63 Respiratory Rate 24 H 22 H 19 Blood Pressure 157/66 H Pulse Oximetry 95 Oxygen Delivery Fraction of Inspired Oxygen 01/31/25 04:00 01/31/25 04:00 01/31/25 04:00 Temperature 37.4 C Pulse Rate 55 L 55 L Respiratory Rate 16 16 Blood Pressure 138/66 Pulse Oximetry 92 Oxygen Delivery Fraction of Inspired Oxygen 50 01/31/25 04:00 01/31/25 04:00 01/31/25 04:00 Temperature Pulse Rate 55 L 55 L 75 Respiratory Rate 16 Blood Pressure 138/66 Pulse Oximetry Oxygen Delivery Fraction of Inspired Oxygen 01/31/25 04:00 01/31/25 04:44 01/31/25 05:00 Temperature 37.2 C Pulse Rate 62 58 L Respiratory Rate 16 Blood Pressure 114/58 L Pulse Oximetry 94 95 Oxygen Delivery Mechanical Ventilation Mechanical Ventilation Fraction of Inspired Oxygen 50 50 01/31/25 06:00 01/31/25 06:00 01/31/25 06:00 Temperature 37.3 C Pulse Rate 50 L 49 L 49 L Respiratory Rate 16 16 Blood Pressure 112/57 L Pulse Oximetry 96 Oxygen Delivery Fraction of Inspired Oxygen 01/31/25 06:00 01/31/25 07:00 01/31/25 07:00 Temperature 37.3 C Pulse Rate 49 L 50 L 50 L Respiratory Rate 16 16 16 Blood Pressure 114/68 Pulse Oximetry 97 Oxygen Delivery Fraction of Inspired Oxygen 01/31/25 07:00 01/31/25 07:00 01/31/25 07:38 Temperature Pulse Rate 50 L 50 L 48 L Respiratory Rate 16 16 Blood Pressure 114/68 Pulse Oximetry Oxygen Delivery Fraction of Inspired Oxygen 01/31/25 07:40 01/31/25 07:40 01/31/25 08:00 Temperature 37.4 C Pulse Rate 48 L 48 L 50 L Respiratory Rate 16 16 16 Blood Pressure 113/60 Pulse Oximetry 97 Oxygen Delivery Fraction of Inspired Oxygen 01/31/25 08:00 01/31/25 08:00 01/31/25 08:00 Temperature Pulse Rate 51 L 51 L 51 L Respiratory Rate 16 16 Blood Pressure 113/60 Pulse Oximetry Oxygen Delivery Fraction of Inspired Oxygen 01/31/25 08:00 01/31/25 08:00 01/31/25 08:00 Temperature Pulse Rate 52 L Respiratory Rate Blood Pressure Pulse Oximetry Oxygen Delivery Mechanical Ventilation Fraction of Inspired Oxygen 50 01/31/25 08:08 01/31/25 08:13 01/31/25 08:19 Temperature Pulse Rate 50 L 57 L 56 L Respiratory Rate 16 16 Blood Pressure Pulse Oximetry 94 Oxygen Delivery Mechanical Ventilation Fraction of Inspired Oxygen 50 01/31/25 09:00 01/31/25 10:00 01/31/25 10:00 Temperature 37.4 C Pulse Rate 58 L 56 L 56 L Respiratory Rate 16 16 Blood Pressure 113/63 118/65 Pulse Oximetry 96 Oxygen Delivery Fraction of Inspired Oxygen 01/31/25 10:00 01/31/25 10:00 01/31/25 10:00 Temperature 37.3 C Pulse Rate 56 L 56 L 56 L Respiratory Rate 16 16 Blood Pressure 118/65 Pulse Oximetry 94 Oxygen Delivery Fraction of Inspired Oxygen 01/31/25 11:00 01/31/25 11:17 01/31/25 11:20 Temperature 37.3 C Pulse Rate 57 L 59 L 55 L Respiratory Rate 16 Blood Pressure 114/68 114/68 Pulse Oximetry 97 90 Oxygen Delivery Mechanical Ventilation Fraction of Inspired Oxygen 40 Intake/Output Intake/Output: Intake & Output 01/28/25 01/29/25 01/30/25 01/31/25 23:59 23:59 23:59 23:59 Intake Total 2672.6 2614.3 3085.5 1457.0 Output Total 1950 1775 1650 1000 Balance 722.6 839.3 1435.5 457.0 Meds/Results Medications: Active Medications Generic Name Dose Route Start Last Admin Trade Name Freq PRN Reason Stop Dose Admin Acetaminophen 650 mg 01/28/25 10:07 01/28/25 16:14 Acetaminophen Elixir 325 Mg/10.15 Ml Udc PO 650 mg Q6H PRN Administration Mild Pain (1-3) or Fever Albuterol/Ipratropium 3 ml 01/31/25 08:32 Ipratropium 0.5 Mg/Albuterol Sulfate 2.5 Mg (Base) Ampul.Neb 3 Ml INHALATION Q6HRT PRN wheezing Aspirin 81 mg 01/30/25 08:00 01/31/25 09:06 Aspirin 81 Mg Chewable Tablet PO 81 mg DAILY@0800 JOCELYNE Administration Atorvastatin Calcium 80 mg 01/24/25 21:00 01/30/25 20:09 Atorvastatin 40 Mg Tablet PO 80 mg QHS JOCELYNE Administration Bumetanide 1 mg 01/31/25 09:00 01/31/25 09:06 Bumetanide Inj 1 Mg/4 Ml Vial IV PUSH 1 mg BID JOCELYNE Administration Carvedilol 3.125 mg 01/24/25 21:00 Carvedilol 3.125 Mg Tablet PO On Hold: 01/24/25 21:00 Q12HR JOCELYNE Empagliflozin 10 mg 01/27/25 09:00 01/31/25 09:06 Empagliflozin 10 Mg Tablet PO 10 mg DAILY JOCELYNE Administration Enoxaparin Sodium 40 mg 01/30/25 10:35 01/31/25 09:06 Enoxaparin 40 Mg/0.4 Ml Syringe SUB-Q 40 mg DAILY JOCELYNE Administration Hydralazine HCl 20 mg 01/27/25 19:40 01/29/25 14:52 Hydralazine Hcl 20 Mg/Ml Vial IV PUSH 20 mg Q4HR PRN Administration SBP > 160 Lidocaine HCl/Dextrose 2 gm in 500 mls @ 15 mls/hr 01/24/25 13:30 01/31/25 11:20 Lidocaine In D5w 4 Mg/Ml IV CONT 1 mg/min .Q24H JOCELYNE 15 mls/hr 1 MG/MIN Infusion Fentanyl Citrate 2,500 mcg in 250 mls @ 10 mls/hr 01/29/25 13:40 01/31/25 10:00 Fentanyl 2,500 Mcg/Ns 250 Ml IV CONT 100 mcg/hr .Q25H JOCELYNE 10 mls/hr Protocol Titration 100 MCG/HR Midazolam HCl 100 mg in 100 mls @ 3 mls/hr 01/29/25 13:40 01/31/25 10:00 Versed 100 Mg/Ns 100 Ml IV CONT 3 mg/hr .[id number] JOCELYNE 3 mls/hr Protocol Titration 3 MG/HR Multi-Ingred Cream/Lotion/Oil/Oint 1 applic 01/24/25 09:00 01/31/25 09:06 Mineral Oil/White Petrolatum Ointment EACH EYE 1 applic Q12HR JOCELYNE Administration Pantoprazole Sodium 40 mg 01/24/25 09:00 01/31/25 09:06 Pantoprazole Sodium Iv 40 Mg Vial IV PUSH 40 mg DAILY JOCELYNE Administration Polyethylene Glycol 17 gm 01/27/25 10:14 Polyethylene Glycol 3350 17 Gm Powd.Pack PO QAM PRN Constipation Potassium Chloride 40 meq 01/31/25 13:00 Potassium Chloride 20 Meq Packet (For Liquid) FEED TUBE 01/31/25 13:01 ONCE ONE Senna/Docusate Sodium 1 tab 01/27/25 21:00 01/30/25 20:09 Senna/Docusate Sodium Tablet PO 1 tab HS JOCELYNE Administration Sodium Chloride 10 ml 01/24/25 06:00 01/31/25 06:10 Central Line Flush IV PUSH 10 ml Q8HR JOCELYNE Administration Sodium Chloride 20 ml 01/23/25 22:48 Central Line Flush IV PUSH PRN PRN after blood draws Sodium Chloride 10 ml 01/30/25 08:47 Central Line Flush IV PUSH PRN PRN with TPN bag changes Radiology Results: ITS Impressions Head CT 01/23/25 19:11 IMPRESSION: No acute intracranial hemorrhage or extra axial fluid collections. Bilateral mastoiditis. All CT scans at this facility are performed using low dose modulation techniques as appropriate to perform exam including the following: automated exposure control; use of iterative reconstruction technique; adjustment of the mA and/or kV according to patient size (this includes techniques or standardized protocols for targeted exams where dose is matched to indication/reason for exam). Chest/Abdomen/Pelvis CT 01/23/25 19:16 IMPRESSION: Bilateral lower lobe consolidation may represent pneumonia. No acute abdominal or pelvic findings. All CT scans at this facility are performed using low dose modulation techniques as appropriate to perform exam including the following: automated exposure control; use of iterative reconstruction technique; adjustment of the mA and/or kV according to patient size (this includes techniques or standardized protocols for targeted exams where dose is matched to indication/reason for exam). Venous Doppler Study 01/24/25 11:45 IMPRESSION: 1. No DVT either leg. Ankle Brachial Index 01/24/25 11:52 IMPRESSION: 1. Artery pressures and the pressures at the right and left brachial, posterior tibial and dorsalis pedis arteries were unable to be obtained likely due to markedly increased pressures with right and left great toe pressures of 212 and 214 mmHg respectively. Abdomen X-Ray 01/29/25 14:09 Impression: 1. No acute abnormality. Chest X-Ray 01/31/25 08:28 IMPRESSION: 1. No significant cardiopulmonary change. 2. New left PICC, tip poorly seen but probably lower SVC. Labs Labs: Laboratory Results - last 24 hr 01/30/25 01/30/25 01/31/25 18:03 23:29 04:21 WBC RBC Hgb Hct MCV MCH MCHC RDW Plt Count MPV Immature Gran % (Auto) Neut % (Auto) Lymph % (Auto) [place] % (Auto) Eos % (Auto) Baso % (Auto) Lymph # (Auto) [place] # (Auto) Eos # (Auto) Baso # (Auto) Abs Immat Gran (auto) Absolute Neuts (auto) Absolute Nucleated RBC Nucleated RBC % APTT Puncture Site Left radial ABG pH 7.405 ABG pCO2 45.0 ABG pO2 77.1 L ABG PO2/FiO2 Ratio 1.54 ABG HCO3 27.6 H ABG O2 Saturation 95.4 ABG O2 Content 15.6 L ABG Base Excess 2.4 A-a Gradient 228.8 Oxyhemoglobin 93.5 Carboxyhemoglobin 0.8 Methemoglobin 0.0 Reduced Hemoglobin 5.7 H Total Hemoglobin 11.8 L O2 Delivery Device Ventilator O2 Liters/Min Not Reportable Minute Volume Not Reportable Vent Rate 16 Vent Mode Cmv FiO2 50 Tidal Volume 500 PEEP 8 Peak Inspir Pressure Not Reportable Pressure Support Not Reportable Sodium Potassium Chloride Carbon Dioxide Anion Gap BUN Creatinine Estim Creat Clear Calc Estimated GFR Glucose POC Capillary Glucose 128 H 135 H Calcium Phosphorus Magnesium Total Bilirubin AST ALT Alkaline Phosphatase Total Protein Albumin 01/31/25 04:37 WBC 8.8 RBC 3.20 L Hgb 10.6 L Hct 33.1 L MCV 103.4 H MCH 33.1 MCHC 32.0 RDW 13.9 Plt Count 226 MPV 10.1 Immature Gran % (Auto) 0.9 H Neut % (Auto) 57.7 Lymph % (Auto) 23.4 [place] % (Auto) 14.5 H Eos % (Auto) 3.0 Baso % (Auto) 0.5 Lymph # (Auto) 2.05 [place] # (Auto) 1.3 H Eos # (Auto) 0.3 Baso # (Auto) 0.0 Abs Immat Gran (auto) 0.08 H Absolute Neuts (auto) 5.1 Absolute Nucleated RBC 0.000 Nucleated RBC % 0.0 APTT 33.5 Puncture Site ABG pH ABG pCO2 ABG pO2 ABG PO2/FiO2 Ratio ABG HCO3 ABG O2 Saturation ABG O2 Content ABG Base Excess A-a Gradient Oxyhemoglobin Carboxyhemoglobin Methemoglobin Reduced Hemoglobin Total Hemoglobin O2 Delivery Device O2 Liters/Min Minute Volume Vent Rate Vent Mode FiO2 Tidal Volume PEEP Peak Inspir Pressure Pressure Support Sodium 138 Potassium 3.5 Chloride 106 Carbon Dioxide 30 Anion Gap 2 L BUN 24 H Creatinine 1.20 Estim Creat Clear Calc 73 Estimated GFR 59 Glucose 116 H POC Capillary Glucose Calcium 8.5 Phosphorus 4.8 H Magnesium 1.8 Total Bilirubin 0.8 AST 98 H ALT 63 H Alkaline Phosphatase 79 Total Protein 5.7 L Albumin 2.8 L
[2025-01-31] MEDS: MIDAZOLAM HCL (*CRX) 2 MG/2 ML VIAL 4 MG IV PUSH ×2 (17:30→18:47)
[2025-01-31] MEDS: MIDAZOLAM 100MG/NS 100ML(*CRX) 100 MG/100 ML BAG 7 MG IV CONT (17:46)
[2025-01-31] MEDS: ATORVASTATIN 40 MG TABLET 80 MG PO (19:57)
[2025-01-31] MEDS: SENNA/DOCUSATE SODIUM TABLET 1 TAB PO (19:58)
--- NOTE | 2025-01-31 23:47 | PC.NURSE ---
[facility] transferred pt to [facility] at 2335. Updated report called to JOSE MANUEL Quinn ([phone]). Pt is going to [facility] CVU room 3. Dr. Ramirez is accepting physician. Pt's son, Fabiano ([phone]) was notified of pt's transfer by rita RICHARD.
--- NOTE | 2025-01-31 23:50 | PC.NURSE ---
Fentanyl, Versed, and lidocaine gtts infusing and transferred with EMS.
--- NOTE | 2025-02-01 10:41 | P.TS_ITS ---
Transfer Discharge Sum: Prov Provider Date of admission: 01/23/25 19:05 Primary care physician: Mohit Kat MD Admitting clinician: Josh chavez Oca, MD Consults: 01/23/25 Consult to Physician Routine Comment: Consulting Provider: Nate Abraham test kitchen home economist/MD group to consult: Dr. Abraham hand surgeon Reason for consultation: Right hand infection Has provider been notified: Yes Consult to Physician Routine Comment: Consulting Provider: Kayla Rangel test kitchen home economist/MD group to consult: Infectious disease Reason for consultation: Infection to right hand and pneumonia Has provider been notified: Yes Consult to Physician Routine Comment: Consulting Provider: Octavia Valdez Reason for consultation: cardiac arrest; ROSC Has provider been notified: Yes 01/23/25 19:07 Consult to Physician Routine Comment: Consulting Provider: Benito Lucia Reason for consultation: cardiac arrest Has provider been notified: Yes Consult to Physician Routine Comment: Consulting Provider: Octavia Valdez Reason for consultation: cardiac arrest Has provider been notified: Yes 01/24/25 07:28 Consult Infectious Disease Pharmacist Routine Comment: Initiate coordination of ID Physician consult. Attending physician on discharge: Benito Lucia Anticipated date of transfer: 01/31/25 Receiving physician/facility: [facility] DS: Admitting Diagnosis Discharge Date 01/31/25 Admitting Diagnosis Cardiac arrest DS: Discharge Diagnosis Discharge Diagnosis (1) Acute respiratory failure: Code(s): J96.00 - Acute respiratory failure, unspecified whether with hypoxia or hypercapnia Status: Acute (2) Encephalopathy: Code(s): G93.40 - Encephalopathy, unspecified Status: Acute (3) Cardiac arrest with ventricular fibrillation: Code(s): I46.9 - Cardiac arrest, cause unspecified; I49.01 - Ventricular fibrillation Status: Acute (4) Mixed hyperlipidemia: Code(s): E78.2 - Mixed hyperlipidemia Status: Acute (5) Chronic atrial fibrillation: Code(s): I48.20 - Chronic atrial fibrillation, unspecified Status: Acute (6) CAD (coronary artery disease): Code(s): I25.10 - Atherosclerotic heart disease of [place] coronary artery without angina pectoris Status: Inactive Transfer Discharge Sum: Med Medications Active and Home Medications: Home Medications cholecalciferol (vitamin D3) 125 mcg (5,000 unit) tablet 5,000 unit PO DAILY 04/04/19 [History Confirmed 01/24/25] cyanocobalamin (vitamin B-12) 1,000 mcg tablet 1,000 mcg PO DAILY 10/29/23 [History Confirmed 01/24/25] apixaban 5 mg tablet (Eliquis) 5 mg PO BID #60 tabs 02/19/24 [Rx Confirmed 01/24/25] atorvastatin 80 mg tablet 80 mg PO QHS #90 tabs 04/27/24 [Rx Confirmed 01/24/25] fexofenadine 180 mg tablet (Aliza Allergy) 180 mg PO DAILY chronic seasonal allergic rhinitis #30 tabs 05/12/24 [Rx Confirmed 01/24/25] amiodarone 100 mg tablet 100 mg PO DAILY #90 tabs 06/09/24 [Rx Confirmed 01/24/25] carvedilol 6.25 mg tablet 6.25 mg PO Q12H #180 tabs 06/21/24 [Rx Confirmed 01/24/25] escitalopram oxalate 20 mg tablet (Lexapro) 20 mg PO DAILY #90 tabs 06/21/24 [Rx Confirmed 01/24/25] irbesartan 150 mg tablet 150 mg PO DAILY #90 tabs 06/21/24 [Rx Confirmed 01/24/25] Transfer Discharge Sum: Hosp Hospital Course Hospital course: Naif Hale is a 79 year old male was admitted to [facility] on 01/23 after sustaining a cardiac arrest. Patient presented with chief complaint of dizziness then sustained a cardiac arrest in the waiting room. He was defibrillated for VFib Initial EKG was consent was STEMI but repeat EKG showed resolution of changes patient was intubated admitted to ICU and started on targeted temperature management as he was comatose. Cardiology was consulted. After completion of protocol 1 sedatives were withdrawn patient was following commands appropriately. A cardiac catheterization was done which showed severe obstructive multivessel coronary disease. He was started on amiodarone infusion which was later switched to lidocaine infusion for VFib. Patient was extubated on 01/29 but had another episode of V-tach and VFib along with respiratory distress and tachypnea. Patient was again defibrillated, reintubated and placed on lidocaine infusion. After several days of some deliberation cardiology decided to transfer patient to tertiary facility for management of his coronary disease which would include high risk PCI versus CABG and evaluation by EP for his ventricular fibrillation. Patient was transferred to [facility] in stable condition. He is intubated is on sedation with fentanyl Versed and lidocaine infusion per Cardiology. He was also on heparin infusion. Patient Condition: Gaurded Prognosis Time Spent with Patient Time attestation: Total time spent providing and/or coordinating transfer services: Total time spent: Less than 30 minutes Exam Narrative: General: Intubated, not in any distress HEENT:? Pupils equal and reactive, sclera is clear, ETT in place Neck:? Supple Respiratory:? Coarse breath sounds bilaterally, decreased at bases, no wheeze Cardiac:? Sinus rhythm, rate controlled Abdomen:? Soft, nontender, nondistended, hypoactive bowel sounds Extremities:? Trace edema bilaterally, palpable pulses. Ruptured blisters noted on the right hand, edematous currently in a splint and Heber wrap Neuro:? Patient is intubated, sedated, does not open his eyes are follow simple commands, Skin:? No lesions noted Psych:? Unable to assess at this time DS: Data Data Completed and Pending Labs on day of discharge: Labs from last 24 hours 01/31/25 18:17 POC Capillary Glucose 99 Preliminary micro results at discharge 01/23/25 22:51 Blood Culture - Preliminary Blood Cutibacterium avidum
== END 2025-01-31 23:37 | disposition short-term general hospital (02) | DRG 280 ==
LOC: ANHED 16:46 → ANHICU 19:20
PROVIDERS: Internal Medicine; Internal Medicine Interventional Cardiology; Nurse Practitioner; Student in an Organized Health Care Education/Training Program; Admitting Provider Student in an Organized Health Care Education/Training Program; Emergency Provider Emergency Medicine; PCP Family Medicine; Visit Provider Internal Medicine
PROC: 4A023N7 Measurement of Cardiac Sampling and Pressure, Left Heart, Percutaneous Approach (ICD-10-PCS; CPT 93452; principal; 2025-01-26 08:00)
DX: I21.4 Non-ST elevation (NSTEMI) myocardial infarction (principal); I46.9 Cardiac arrest, cause unspecified; I49.01 Ventricular fibrillation; J96.00 Acute respiratory failure, unspecified whether with hypoxia or hypercapnia; I50.33 Acute on chronic diastolic (congestive) heart failure; J18.9 Pneumonia, unspecified organism; J81.0 Acute pulmonary edema; I50.22 Chronic systolic (congestive) heart failure; G93.40 Encephalopathy, unspecified; I48.20 Chronic atrial fibrillation, unspecified; I47.10 Supraventricular tachycardia, unspecified; I47.20 Ventricular tachycardia, unspecified; I25.10 Atherosclerotic heart disease of native coronary artery without angina pectoris; I11.0 Hypertensive heart disease with heart failure; I35.0 Nonrheumatic aortic (valve) stenosis; D52.9 Folate deficiency anemia, unspecified; D51.9 Vitamin B12 deficiency anemia, unspecified; E55.9 Vitamin D deficiency, unspecified; K57.30 Diverticulosis of large intestine without perforation or abscess without bleeding; J32.9 Chronic sinusitis, unspecified; H66.91 Otitis media, unspecified, right ear; E66.01 Morbid (severe) obesity due to excess calories; M54.41 Lumbago with sciatica, right side; G51.0 Bell's palsy; G47.33 Obstructive sleep apnea (adult) (pediatric); F10.20 Alcohol dependence, uncomplicated; F32.A Depression, unspecified; F41.9 Anxiety disorder, unspecified; Z20.822 Contact with and (suspected) exposure to COVID-19; Z68.39 Body mass index [BMI] 39.0-39.9, adult; E78.2 Mixed hyperlipidemia; R00.1 Bradycardia, unspecified; S62.316D Displaced fracture of base of fifth metacarpal bone, right hand, subsequent encounter for fracture with routine healing; S62.314D Displaced fracture of base of fourth metacarpal bone, right hand, subsequent encounter for fracture with routine healing
CPT/HCPCS: 31500; 36415; 36569; 36600; 70450; 71045; 71250; 74176; 80048; 80053; 80143; 80179; 80202; 80307; 81001; 82077; 82375; 82550; 82565; 82805; 82948; 83050; 83605; 83735; 83880; 84100; 84478; 84484; 85018; 85025; 85027; 85610; 85730; 87040; 87070; 87205; 87449; 87637; 87641; 87899; 93005; 93458; 93922; 93970; 94002; 94003; 94640; 96374; 96375; 99291; A9270; C1751; C1760; C1887; C1894; C8929; G0269; J0153; J0168; J0282; J0283; J0360; J0616; J0696; J1644; J1650; J1938; J1939; J2002; J2003; J2250; J2305; J2470; J2543; J2704; J3010; J3373; J3475; J3480; J7030; J7040; J7120; Q9957